=== PATIENT | female | born 1940 | race Caucasian/White ===

== ENCOUNTER → 2018-01-27 | Outpatient (REF) | payer MEDICARE, MEDICAID, SELFPAY | LOC: LAB 08:19 | PROVIDERS: PCP Internal Medicine; Visit Provider Internal Medicine | DX: N18.9 Chronic kidney disease, unspecified (principal) | CPT/HCPCS: 36415; 80048 ==

== ENCOUNTER → 2018-02-03 | Outpatient (REF) | payer MEDICARE, MEDICAID, SELFPAY | LOC: LAB 07:44 | PROVIDERS: Visit Provider Internal Medicine | DX: E11.9 Type 2 diabetes mellitus without complications (principal) | CPT/HCPCS: 36415; 80048 ==

== ENCOUNTER → 2018-02-13 | Outpatient (REF) | payer MEDICARE, MEDICAID, SELFPAY | LOC: LAB 19:14 | PROVIDERS: PCP Internal Medicine; Visit Provider Internal Medicine | DX: N18.9 Chronic kidney disease, unspecified (principal); L03.90 Cellulitis, unspecified | CPT/HCPCS: 80048; 85025 ==

== ENCOUNTER → 2018-02-19 | Outpatient (REF) | payer MEDICARE, MEDICAID, SELFPAY | LOC: LAB 09:06 | PROVIDERS: Visit Provider Internal Medicine | DX: R60.9 Edema, unspecified (principal); Z79.899 Other long term (current) drug therapy | CPT/HCPCS: 36415; 80048 ==

== ENCOUNTER → 2018-02-24 | Outpatient (REF) | payer MEDICARE, MEDICAID, SELFPAY | LOC: LAB 07:35 | PROVIDERS: Visit Provider Internal Medicine | DX: N18.9 Chronic kidney disease, unspecified (principal) | CPT/HCPCS: 36415; 80048 ==

== ENCOUNTER 2018-04-01 03:08 | Emergency (ER) | payer MEDICARE, MEDICAID, SELFPAY ==
[2018-04-01 03:10] VITALS: BP 136/50; PULSE 67; RESP 20; TEMP 36.9; O2SAT 96
--- NOTE | 2018-04-01 03:10 | ED.BACK ---
HPI - Back Pain/Injury General Chief Complaint: Back Pain/Injury Stated Complaint: Back Pain Time Seen by Provider: 04/01/18 03:10 Source: patient and EMS Mode of arrival: EMS Limitations: no limitations History of Present Illness HPI Narrative: Patient presents to emergency department with a chief complaint of some right lower back pain in the absence of injury. She denies other symptoms such as fever or chills nor difficulty with bowel or bladder control. She denies numbness, tingling or weakness. She denies any injury or fall. She admits to chronic back pain but states this is slightly worse than normal. She has to be transported for evaluation MD Complaint: back pain Onset (ago): year(s) Duration: intermittent Similar Symptoms Previously: Yes Location: lumbar spine Severity: mild Radiation: none Relieving factors: none Exacerbating factors: none Associated symptoms: denies other symptoms Related Data Home Medications Medication Instructions Recorded Confirmed VITAMIN D (Vitamin D3) 1,000 unit PO QDAY #0 08/04/12 04/01/18 albuterol sulfate [Proventil HFA] 2 puff INH Q4HP PRN #0 09/08/16 04/01/18 fluticasone [Flovent Diskus] 100 mcg INH BIDP PRN #0 09/08/16 lamotrigine [Lamictal] 300 mg PO QDAY #0 09/08/16 04/01/18 rivaroxaban [Xarelto] 15 mg PO QDAY #0 09/08/16 04/01/18 docusate sodium 100 mg PO QDAYP PRN #0 07/10/17 04/01/18 polyethylene glycol 3350 [Miralax] 17 gm PO QDAY #0 07/10/17 atorvastatin 40 mg PO QDAY #0 01/18/18 04/01/18 glipizide 10 mg PO BIDAC #0 01/18/18 04/01/18 Ritalin 5 mg DAILY 04/01/18 04/01/18 acetaminophen [Tylenol] 650 mg PO Q4H PRN 04/01/18 04/01/18 ascorbic acid (vitamin C) [Vitamin 04/01/18 C] fluticasone [Flovent Diskus] 1 inh INHALATION Q12H 04/01/18 04/01/18 furosemide [Lasix] 40 mg 04/01/18 hydroxyzine pamoate [Vistaril] 25 mg PO Q6-8H PRN 04/01/18 04/01/18 insulin aspart U-100 [Novolog ACHS 04/01/18 Flexpen U-100 Insulin] Previous Rx's Medication Instructions Recorded amlodipine [Norvasc] 5 mg PO QDAY #30 tab 01/22/18 lisinopril 20 mg PO QDAY #30 tab 01/22/18 metformin [Glucophage] 500 mg PO BIDCC #60 tab 01/22/18 methadone 10 mg PO 0200,1000,1800 #60 tab 01/22/18 methylphenidate HCl 10 mg PO QDAY #20 tab 01/22/18 nystatin 0 gm TOPICAL TID #30 gm 01/22/18 oxycodone 0 mg PO Q8H #60 tab 01/22/18 Allergies Allergy/AdvReac Type Severity Reaction Status Date / Time Iodine and Iodide Containing Allergy Intermediate i get Verified 04/01/18 03:24 Produc spots all [IODINE AND IODIDE over my CONTAINING PRODUC] body Penicillins [PENICILLINS] Allergy Intermediate makes my Verified 04/01/18 03:24 bones and joints ache aspirin [ASPIRIN] Allergy Unknown Verified 04/01/18 03:24 meclizine [MECLIZINE] Allergy Unknown Verified 04/01/18 03:24 codeine [CODEINE] AdvReac Unknown gives me Verified 04/01/18 03:24 bloody nightmares potassium [POTASSIUM] AdvReac Unknown Verified 04/01/18 03:24 Review of Systems Review of Systems All systems reviewed & are unremarkable except as noted in HPI and below Constitutional Denies chills, Denies fever(s), Denies lethargy and Denies weakness Eyes Denies change in vision, Denies eye discharge, Denies irritation and Denies loss of vision ENT Ears, Nose, Mouth, and Throat: Denies change in voice, Denies neck pain and Denies sore throat Cardiovascular Denies chest pain, Denies irregular heart rhythm, Denies lightheadedness, Denies palpitations, Denies dyspnea, Denies dyspnea on exertion and Denies orthopnea Respiratory Denies cough, Denies dyspnea, Denies dyspnea on exertion and Denies wheezing Gastrointestinal Gastrointestinal: Denies abdominal pain, Denies change in bowel habits, Denies diarrhea, Denies nausea and Denies vomiting Genitourinary Denies hematuria, Denies flank pain, Denies urinary incontinence and Denies urinary urgency Musculoskeletal Denies neck pain Integumentary/Breasts Denies pruritus, Denies erythema, Denies rash and Denies wounds Neurologic Denies confusion, Denies loss of vision and Denies weakness Psychiatric Denies anxiety, Denies confusion, Denies depression, Denies homicidal ideation and Denies suicidal ideation Endocrine Denies palpitations Hematologic/Lymphatic Denies easy bruising Allergic/Immunologic Denies wheezing [facility] Social History Smoking Status: Never smoker Exam Narrative Exam Narrative: Pleasantly confused 77F in mild distress Initial Vital Signs Initial Vital Signs: Vital Signs Temperature 98.4 F 04/01/18 03:10 Pulse Rate 67 04/01/18 03:10 Respiratory Rate 20 04/01/18 03:10 Blood Pressure 136/50 H 04/01/18 03:10 Pulse Oximetry 96 04/01/18 03:10 Const General: cooperative and in distress Nutritional Appearance: obese Orientation: alert, awake and not confused HENMT Head: normocephalic and atraumatic Nose: external nose normal and No nasal discharge Face and sinus: sinuses nontender, no sinus tenderness and No dry mucous membranes Mouth: oral mucosae normal and moist mucous membranes Eyes General: appearance normal, both eyes and all related structures Eyelids: eyelids normal Pupils: PERRL EOM: EOM intact bilaterally Resp Effort & Inspection: normal respiratory effort, able to speak in complete sentences, no respiratory distress and no use of accessory muscles Auscultation: clear to auscultation bilaterally, no rales, no rhonchi and no wheezes GI Inspection: non-distended Palpation: soft, no hepatosplenomegaly, No guarding, No pulsatile mass and No tender Auscultation: normal bowel sounds Back/Spine/Pelvis Back: back tenderness (to palpation of R buttock) Skin Other: chronic venous stasis B/L LE Neuro General: alert and awake Speech: speech normal Sensory Exam: no sensory deficits noted Course Orders Ordered: ED Orders 04/01/18 03:22 XR abdomen min 2V Stat Vital Signs - 8 hr 04/01/18 03:10 Temperature 98.4 F Pulse Rate 67 Respiratory Rate 20 Blood Pressure 136/50 H Pulse Oximetry 96 Discharge Plan Departure Patient Disposition: Home, Self-Care Clinical Impression: Chronic back pain Instructions: DI for Low Back Pain Prescriptions: No Action VITAMIN D (Vitamin D3) 1,000 unit PO QDAY Qty: 0 RF: 0 rivaroxaban [Xarelto] 15 MG tablet 15 mg PO QDAY Qty: 0 RF: 0 lamotrigine [Lamictal] 100 MG tablet 300 mg PO QDAY Qty: 0 RF: 0 fluticasone [Flovent Diskus] 100 MCG blister with device 100 mcg INH BIDP PRNQty: 0 RF: 0 albuterol sulfate [Proventil HFA] 90 MCG/PUFF HFA aerosol inhaler 2 puff INH Q4HP PRN (Reason: Dyspnea) Qty: 0 RF: 0 docusate sodium 100 MG capsule 100 mg PO QDAYP PRN (Reason: Constipation) Qty: 0 RF: 0 polyethylene glycol 3350 [Miralax] 17 GM powder in packet 17 gm PO QDAY Qty: 0 RF: 0 glipizide 5 MG tablet 10 mg PO BIDAC Qty: 0 RF: 0 atorvastatin 40 MG tablet 40 mg PO QDAY Qty: 0 RF: 0 metformin [Glucophage] 500 MG tablet 500 mg PO BIDCC Qty: 60 RF: 0 lisinopril 20 MG tablet 20 mg PO QDAY Qty: 30 RF: 0 methadone 10 MG tablet 10 mg PO 0200,1000,1800 Qty: 60 RF: 0 nystatin 30 GM cream Topical TID Qty: 30 RF: 0 amlodipine [Norvasc] 5 MG tablet 5 mg PO QDAY Qty: 30 RF: 0 oxycodone 5 MG tablet PO Q8H Qty: 60 RF: 0 methylphenidate HCl 10 MG tablet 10 mg PO QDAY Qty: 20 RF: 0 Ritalin 5 mg DAILY RF: 0 furosemide [Lasix] 40 mg Tablet 40 mg RF: 0 ascorbic acid (vitamin C) [Vitamin C] 500 mg Tablet RF: 0 fluticasone [Flovent Diskus] 100 mcg/actuation Blister With Device 1 inh INHALATION Q12H RF: 0 hydroxyzine pamoate [Vistaril] 25 mg Capsule 25 mg PO Q6-8H PRN (Reason: Muscle Spasm) RF: 0 acetaminophen [Tylenol] 325 mg Tablet 650 mg PO Q4H PRN (Reason: Pain (Scale Score 4-6)) RF: 0 insulin aspart U-100 [Novolog Flexpen U-100 Insulin] 100 unit/mL Insulin Pen ACHS RF: 0
--- NOTE | 2018-04-01 03:22 | DI.RAD.S_ITS ---
PROCEDURE: XR ABDOMEN MIN 2V INDICATIONS: 77 year-old female with constipation and back pain. TECHNIQUE: 2 views of the abdomen were acquired. COMPARISON: [facility], , XR ABDOMEN KU, 11/27/2001, 9:02. FINDINGS: Surgical changes and devices: Pelvic surgical clips are now present. Bowel: No pneumoperitoneum. The bowel gas pattern is normal. Soft tissues: No masses; visualized solid organ contours appear normal in size. No suspicious abdominal calcifications. Bones: No suspicious bony abnormalities. There is mild lumbar spine disc degeneration. IMPRESSION: Normal bowel gas pattern. Mild lumbar spine disc degeneration. Dictated by: Tim Souza M.D. on 04/01/2018 at 8:09 Approved by: Tim Souza M.D. on 04/01/2018 at 8:10
[2018-04-01 04:06] VITALS: BP 111/58; PULSE 67; RESP 18; O2SAT 97
--- NOTE | 2018-04-01 04:10 | PC.NURSE ---
Late entry at 0330-PT denies no new injuries/trauma/fall. Able to move all extremities well and denies bladder/bowel dysfunction.
== END 2018-04-01 04:06 | disposition home or self-care (01) ==
PROVIDERS: Emergency Provider Emergency Medicine; PCP Internal Medicine
DX: M54.9 Dorsalgia, unspecified (principal)
CPT/HCPCS: 74019; 99282; 99283

== ENCOUNTER → 2018-06-13 13:08 | Outpatient (CLI) | payer MEDICARE, MEDICAID, SELFPAY ==
--- NOTE | 2018-06-13 | DI.MG.S_ITS ---
BILATERAL DIGITAL SCREENING MAMMOGRAM 3D/2D WITH CAD: 06/13/2018 CLINICAL: Routine screening. Comparison is made to exams dated: 07/22/2015 mammogram, 10/14/2012 mammogram, and 09/06/2011 mammogram - [facility]. The tissue of both breasts is heterogeneously dense. This may lower the sensitivity of mammography. Current study was also evaluated with a Computer Aided Detection (CAD) system. No significant masses, calcifications, or other findings are seen in either breast. There has been no significant interval change. IMPRESSION: NEGATIVE There is no mammographic evidence of malignancy. A 1 year screening mammogram is recommended. This exam was interpreted at Station ID: [id number]. NOTE: For mammograms, a report in lay terms will be sent to the patient. Approximately 15% of breast malignancies will not be visualized mammographically. In the management of a palpable breast mass, a negative mammogram must not discourage biopsy of a clinically suspicious lesion. Electronically Signed By: Tamela martinez/krista:06/13/2018 14:39:25 letter sent: Normal Exam ACR BI-RADS Category 1: Negative [id number]
== END ==
PROVIDERS: PCP Internal Medicine; Visit Provider Internal Medicine
DX: Z12.31 Encounter for screening mammogram for malignant neoplasm of breast (principal)
CPT/HCPCS: 77063; 77067

== ENCOUNTER → 2018-08-01 14:45 | Outpatient (REF) | payer MEDICARE, MEDICAID, SELFPAY ==
[2018-08-01 14:48] LABS: Bacteria Urine None Seen
[2018-08-01 15:00] LABS: Bilirubin Urine UA NEGATIVE (NEGATIVE); Color Urine UA YELLOW; Glucose Urine UA 2+ g/dL (Normal); Ketones Urine UA NEGATIVE (NEGATIVE); Leukocyte Esterase Urine UA NEGATIVE (NEGATIVE); Nitrite Urine UA Negative (Negative); Occult Blood Urine UA 3+ (Negative); Protein Urine UA NEGATIVE (Negative); Specific Gravity Urine UA 1.015 (1.000-1.035); Urobilinogen Urine UA 0.2 E.U./dL (0.2)
[2018-08-01 15:04] LABS: Appearance Urine UA Slightly Cloudy
[2018-08-01 15:41] LABS: RBC Urine 5-10/HPF (0-5/HPF); Squamous Epithelial Cell Urine 0-1 /HPF; WBC Urine 0-1/HPF (0-5/HPF)
[2018-08-01 15:42] LABS: Culture Indicated Urine Cult Not Indicated
== END ==
LOC: LAB 14:45
PROVIDERS: PCP Internal Medicine; Visit Provider Internal Medicine
DX: N39.0 Urinary tract infection, site not specified (principal)
CPT/HCPCS: 81001

== ENCOUNTER → 2018-08-06 15:53 | Outpatient (CLI) | payer MEDICARE, MEDICAID, SELFPAY ==
--- NOTE | 2018-08-06 15:59 | DI.RAD.S_ITS ---
PROCEDURE: XR FOREARM RT 2V INDICATIONS: PAIN IN RIGHT HAND/ARM TECHNIQUE: 2 views of the forearm were acquired. COMPARISON: None. FINDINGS: Bones: No fractures or dislocations. No suspicious bony lesions. Soft tissues: No suspicious soft tissue calcifications or masses. IMPRESSION: No acute radiographic findings. If pain persists, followup imaging in 5-7 days is recommended to exclude occult fracture. Dictated by: Tamela Del Cid M.D. on 08/06/2018 at 16:32 Approved by: Tamela Del Cid M.D. on 08/06/2018 at 16:34
--- NOTE | 2018-08-06 15:59 | DI.RAD.S_ITS ---
PROCEDURE: XR HAND RT MIN 3V INDICATIONS: RIGHT HAND AND ARM PAIN TECHNIQUE: 3 views of the hand(s) acquired. COMPARISON: [facility], , HAND 3V RIGHT, 08/31/2009, 14:10. FINDINGS: Bones: No acute fracture or dislocation. Bones are osteopenic. 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 Soft tissues: No suspicious soft tissue calcifications. IMPRESSION: Osteopenia and severe degenerative change. No acute radiographic findings. If pain persists, followup imaging in 5-7 days is recommended to exclude occult fracture. Dictated by: Tamela Del Cid M.D. on 08/06/2018 at 16:34 Approved by: Tamela Del Cid M.D. on 08/06/2018 at 16:37
--- NOTE | 2018-08-06 15:59 | DI.RAD.S_ITS ---
PROCEDURE: XR WRIST RT MIN 3V INDICATIONS: RIGHT HAND AND ARM PAIN TECHNIQUE: 4 views of the wrist were acquired. COMPARISON: [facility], , WRIST MINIMUM 3 VIEWS RIGHT, 08/31/2009, 14:11. FINDINGS: Bones: There is severe degenerative change at the first CMC joint. There is negative ulnar variance. No acute fracture or dislocation. Scaphoid view: The scaphoid is intact. Soft tissues: No suspicious soft tissue calcifications. IMPRESSION: Degenerative change. No acute radiographic findings. If pain persists, followup imaging in 5-7 days is recommended to exclude occult fracture. Dictated by: Tamela Del Cid M.D. on 08/06/2018 at 16:37 Approved by: Tamela Del Cid M.D. on 08/06/2018 at 16:38
== END ==
PROVIDERS: PCP Internal Medicine; Visit Provider Internal Medicine
DX: M85.841 Other specified disorders of bone density and structure, right hand (principal); M18.11 Unilateral primary osteoarthritis of first carpometacarpal joint, right hand; M79.641 Pain in right hand; M25.531 Pain in right wrist; M79.631 Pain in right forearm
CPT/HCPCS: 73090; 73110; 73130

== ENCOUNTER 2018-08-08 03:07 | Inpatient (IN) | payer MEDICARE, MEDICAID, SELFPAY ==
[2018-08-08] VITALS (20 sets, daily range): BP systolic 73–144; BP diastolic 34–100; PULSE 41–100; RESP 12–23; TEMP 36.3–36.7; O2SAT 93–100; BMI 42.3
--- NOTE | 2018-08-08 | DI.ECHO.S_ITS ---
[facility] +---------+ [facility] +---------+ : : [address] : : : : [id number] : : : : Phone: [phone] Echocardiogram Report + + :Name: KAYLA BYRD Study Date: 08/08/2018 Height: 65 in : :Hospital Exam Location: [facility] Weight: 246 lb : : Gender: Female BSA: 2.2 m2 : :: 1940 Age: 78 yrs BP: 130/69 mmHg: :Reason For Study: SOB : :Ordering Physician: Jean Claude : :Hospitalist Performed By: Silvana Delgado : :Referring: KITA RUSSO : + + Interpretation Summary The left ventricle is normal in size.The ejection fraction is estimated to be 60-65%. The right ventricle is mildly dilated. The right ventricular systolic function is normal. There is mild aortic regurgitation. There is mild tricuspid regurgitation. The right ventricular systolic pressure is estimated to be at least 33 mmHg based on an estimated right atrial pressure of 15 mm Hg. Procedure: A two-dimensional transthoracic echocardiogram with color flow and Doppler was performed. The study quality was technically difficult. There is no prior echocardiogram noted for this patient. The patient was in sinus bradycardia with heart rates between 41-48 bpm during the exam. Pt unable to participate in exam due to AMS. Left Ventricle: The left ventricle is normal in size. Proximal septal thickening is noted. There is no echo evidence for significant left ventricular outflow tract obstruction. There is no thrombus. The ejection fraction is estimated to be 60-65%. There are no obvious focal wall motion abnormalities noted but poor endocardial definition reduces the sensitivity for the detection of such. Diastolic parameters suggest a relaxation abnormality of the left ventricle, consistent with probable normal filling pressures. Right Ventricle: The right ventricle is mildly dilated. The right ventricular systolic function is normal. Atria: The left atrium is moderately dilated. The right atrium is mildly dilated. There is no Doppler evidence for an interatrial shunt. Mitral Valve: The mitral valve leaflets appear mildly thickened, but open well. There is mild mitral annular calcification. The mitral valve leaflets are slightly calcified. There is trace mitral regurgitation. Aortic Valve: There is mild aortic valve sclerosis. The aortic valve is not well visualized. There is no hemodynamically significant valvular aortic stenosis. There is mild aortic regurgitation. Tricuspid Valve: The tricuspid valve is not well visualized. There is mild tricuspid regurgitation. The right ventricular systolic pressure is estimated to be at least 33 mmHg based on an estimated right atrial pressure of 15 mm Hg. Pulmonic Valve: The pulmonic valve is not well visualized. Great Vessels: The aortic root is normal size. The ascending aorta is mildly enlarged. The aortic arch could not be visualized. The pulmonary is not well visualized. The IVC is dilated (diameter is greater than 2.1 cm) and it collapses less than 50% with a sniff. This suggests a high right atrial pressure of 15 mm Hg. Pericardium/ Pleura There is no pericardial effusion. There is no pleural effusion. MMode/2D Measurements & Calculations LVIDd: 5.2 cm LVOT diam: 2.0 cm LVIDs: 3.1 cm Ao root diam: 3.6 cm FS: 39.9 % asc Aorta Diam: 4.0 cm EPSS: 0.23 cm IVSd: 1.0 cm LVPWd: 1.1 cm LV barron. diameter/BSA (cm/m^2): 2.4 LV sys. diameter/BSA (cm/m^2): 1.4 LA A2 area: 24.5 cm2 RA long axis: 6.0 cm LA A4 area: 28.5 cm2 RA area: 23.5 cm2 LA length (vol): 6.5 cm RA vol: 78.3 ml LA vol: 91.5 ml RA : 36.2 ml/m2 LA vol index: 42.3 ml/m2 IVC diam: 2.4 cm TAPSE: 2.0 cm Doppler Measurements & Calculations Ao V2 max: 144.1 cm/sec LVOT Max Camacho: 104.5 cm/sec Ao V2 mean: 95.7 cm/sec LV V1 max P.4 mmHg Ao max P.3 mmHg LV V1 VTI: 25.7 cm Ao mean P.1 mmHg ARIES(I,D): 2.6 cm2 Ao V2 VTI: 29.7 cm ARIES(V,D): 2.2 cm2 sev ratio: 0.87 ARIES indexed to BSA (cm^2/m^2): 1.2 AI P1/2t: 751.1 msec AI dec slope: 135.0 cm/sec2 MV E max camacho: 75.2 cm/sec TR max camacho: 211.1 cm/sec MV A max camacho: 92.6 cm/sec TR max P.8 mmHg MV E/A: 0.81 PA V2 max: 63.6 cm/sec Med Peak E' Camacho: 6.8 cm/sec PA V2 mean: 46.8 cm/sec E/E' med: 11.0 PA mean P.96 mmHg Lat Peak E' Camacho: 9.2 cm/sec PA pr(Accel): 29.1 mmHg E/E' lat: 8.2 E/e' average: 9.6 MV dec time: 0.24 sec MV P1/2t: 70.6 msec MV P1/2t max camacho: 76.3 cm/sec MVA(P1/2t): 3.1 cm2 Reading Physician:GEOFFREY
--- NOTE | 2018-08-08 03:07 | DI.RAD.S_ITS ---
PROCEDURE: XR CHEST 1V INDICATIONS: chest pain TECHNIQUE: One view of the chest was acquired. COMPARISON: [facility], , CHEST 1 VIEW, 01/18/2018, 5:30. FINDINGS: Surgical changes and devices: None. Lungs and pleura: No pleural effusions or pneumothorax. Lung volumes are decreased. No acute consolidation. There is scattered atelectasis and/or scarring. Lung apices are partially obscured by the patient's chin Mediastinum: Mediastinal contours appear normal. Heart size is normal. Bones and chest wall: No suspicious bony lesions. Overlying soft tissues appear unremarkable. IMPRESSION: Low lung volumes and scattered atelectasis. No acute consolidation. Dictated by: Tra Galeana M.D. on 08/08/2018 at 8:02 Approved by: Tra Galeana M.D. on 08/08/2018 at 8:03
--- NOTE | 2018-08-08 03:10 | ED.GENADULT ---
HPI - General Adult General Chief complaint: Headache Stated complaint: SOB Time Seen by Provider: 08/08/18 03:08 Source: patient and EMS Mode of arrival: EMS Limitations: altered mental status History of Present Illness HPI narrative: patient is a 78-year-old female who lives at a sister living facility called the nurses at the assisted living facility for multiple complaints. Was reported by EMS that she called them for shortness of breath, headache, and feeling like she was fading . There is also some reports that the patient stated that she thought she that she was having a heart attack. When EMS arrived they found that the patient was more confused than what they have seen her in the past. The nursing staff also stated that she was more confused. Patient does have a PLOST for with her and she is a full code. Related Data Home Medications Medication Instructions Recorded Confirmed VITAMIN D (Vitamin D3) 1,000 unit PO QDAY #0 08/04/12 08/08/18 albuterol sulfate [Proventil HFA] 2 puff INH Q4HP PRN #0 09/08/16 08/08/18 fluticasone [Flovent Diskus] 100 mcg INH BIDP PRN #0 09/08/16 08/08/18 lamotrigine [Lamictal] 300 mg PO QDAY #0 09/08/16 08/08/18 rivaroxaban [Xarelto] 15 mg PO QDAY #0 09/08/16 08/08/18 docusate sodium 100 mg PO QDAYP PRN #0 07/10/17 08/08/18 atorvastatin 40 mg PO QDAY #0 01/18/18 08/08/18 glipizide 10 mg PO BIDAC #0 01/18/18 08/08/18 ascorbic acid (vitamin C) [Vitamin 500 mg PO DAILY 04/01/18 08/08/18 C] fluticasone [Flovent Diskus] 1 inh INHALATION Q12H 04/01/18 08/08/18 furosemide [Lasix] 40 mg PO BID 04/01/18 08/08/18 hydroxyzine pamoate [Vistaril] 25 mg PO Q6-8H PRN 04/01/18 08/08/18 insulin aspart U-100 [Novolog See Label Instructions .ROUTE 04/01/18 08/08/18 Flexpen U-100 Insulin] .COMPLEX baclofen 10 mg PO TID 08/08/18 08/08/18 erythromycin 0.5 inch EYE-LEFT DAILY 08/08/18 08/08/18 latanoprost 1 drp EYE-RIGHT DAILY 08/08/18 08/08/18 methadone 5 mg PO 0200,1000,1800 08/08/18 08/08/18 Previous Rx's Medication Instructions Recorded lisinopril 20 mg PO QDAY #30 tab 01/22/18 Allergies Allergy/AdvReac Type Severity Reaction Status Date / Time Iodine and Iodide Containing Allergy Intermediate i get Verified 08/08/18 03:20 Produc spots all [IODINE AND IODIDE over my CONTAINING PRODUC] body Penicillins [PENICILLINS] Allergy Intermediate makes my Verified 08/08/18 03:20 bones and joints ache aspirin [ASPIRIN] Allergy Unknown Verified 08/08/18 03:20 meclizine [MECLIZINE] Allergy Unknown Verified 08/08/18 03:20 codeine [CODEINE] AdvReac Unknown gives me Verified 08/08/18 03:20 bloody nightmares potassium [POTASSIUM] AdvReac Unknown Verified 08/08/18 03:20 Review of Systems Review of Systems Difficult to obtain review of systems secondary to patient's altered mental status. unobtainable due to mental condition Constitutional Reports headache(s) ( she states that at 1 point she was having headache but not now) ENT Ears, Nose, Mouth, and Throat: Reports headache(s) ( she states that at 1 point she was having headache but not now) Cardiovascular Denies chest pain and Reports dyspnea ( She said that she was short of breath but not now at the time of my exam) Respiratory Reports dyspnea ( She said that she was short of breath but not now at the time of my exam) Gastrointestinal Gastrointestinal: Denies abdominal pain and Denies nausea Musculoskeletal Denies arthralgias Neurologic Reports headache(s) ( she states that at 1 point she was having headache but not now) PFSH Medical History CVA (cerebral vascular accident) (Acute) Cataract (Acute) Chronic pain (Acute) Depression (Acute) Diabetes (Acute) H/O: hysterectomy (Acute) Hypertension (Acute) Lower extremity edema (Acute) Pulmonary embolism (Acute) Surgical History Hx of appendectomy (Acute) Hx of tonsillectomy (Acute) Hx of total knee arthroplasty (Acute) Social History Smoking Status: Never smoker Exam Initial Vital Signs Initial Vital Signs: Vital Signs Temperature 97.6 F 08/08/18 03:16 Pulse Rate 80 08/08/18 03:16 Respiratory Rate 20 08/08/18 03:16 Blood Pressure 144/54 H 08/08/18 03:16 Pulse Oximetry 100 08/08/18 03:16 Const General: well developed and No acute distress Orientation: oriented to place, not oriented to time and confused Limitations: altered mental status HENMT Head: normal to inspection, normocephalic and atraumatic Resp Effort & Inspection: normal respiratory effort Cardio Rate: bradycardic Pulses: radial pulses present GI Inspection: non-distended Palpation: soft Skin Other: chronic venous stasis changes bilateral lower extremities Neuro General: alert, moves all extremities ( spontaneously but not to command), confused and unable to assess gait Cognition: abnormal cognition Extrem Other: no gross deformities except for bilateral lower extremity swelling Psych Appearance: grossly normal and well kempt Scores GCS [place] coma scale eye opening: To sound [place] coma scale verbal response: Confused [place] coma scale motor response: Localising [place] coma scale total score: 12 Course Orders Ordered: ED Orders 08/08/18 03:07 XR chest 1V Stat 08/08/18 03:08 EKG-12 Lead Stat 08/08/18 03:13 CT head/brain wo con Stat 08/08/18 03:30 B Type Natriuretic Peptide Stat Complete Blood Count AUTO DIFF Stat Comprehensive Metabolic Panel Stat Lipase Stat Partial Thromboplastin Time Stat Prothrombin Time INR Stat Troponin I Stat Discontinued Medications Sodium Chloride (Normal Saline 0.9%) 1,000 mls @ 1,000 mls/hr IV BOLUS ONE Stop: 08/08/18 05:02 Last Admin: 08/08/18 04:18 Dose: 1,000 mls/hr Naloxone HCl (Narcan) 0.4 mg IV NOW ONE Stop: 08/08/18 04:14 Last Admin: 08/08/18 04:18 Dose: 0.4 mg Vital Signs - 8 hr 08/08/18 03:16 08/08/18 04:00 08/08/18 04:01 Temperature 97.6 F Pulse Rate 80 54 L 57 L Respiratory Rate 20 12 12 Blood Pressure 144/54 H Blood Pressure [Right Arm] 98/59 L 83/36 L Pulse Oximetry 100 97 96 08/08/18 04:03 08/08/18 04:04 08/08/18 04:05 Temperature Pulse Rate 73 55 L 54 L Respiratory Rate 15 13 12 Blood Pressure Blood Pressure [Right Arm] 91/42 L 80/38 L 73/34 L Pulse Oximetry 96 99 99 08/08/18 04:15 08/08/18 04:22 08/08/18 04:39 Temperature Pulse Rate 45 L 41 L 100 H Respiratory Rate 23 21 20 Blood Pressure Blood Pressure [Right Arm] 73/34 L 111/79 119/100 H Pulse Oximetry 93 93 97 Medical Decision Making Medical Records Medical records reviewed: Yes I reviewed the patient's medical records. Lab Data Lab results reviewed: Yes I reviewed the patient's lab results. Result diagrams: 08/08/18 03:30 08/08/18 03:30 Lab Results 08/08/18 08/08/18 08/08/18 Range/Units 03:30 03:30 03:30 WBC 9.5 (4.5-11.0) X10^3/uL RBC 3.72 L (4.0-5.2) X10^6/uL Hgb 11.4 L (12.0-16.0) g/dL Hct 33.2 L (36-46) % MCV 89.1 (80-100) fL MCH 30.6 (26-34) PG MCHC 34.4 (30-36) % RDW 14.4 (11.6-14.8) % Plt Count 219 (150-400) X10^3/uL Neut % (Auto) 70.1 (50-75) % Lymph % (Auto) 14.0 L (25-40) % Bullock % (Auto) 5.0 (3-14) % Eos % (Auto) 10.0 H (2-4) % Baso % (Auto) 0.9 (0-2) % Neut # (Auto) 6700 H (4745-4021) /uL PT 15.4 H (10.1-12.7) SECONDS INR 1.4 H (0.9-1.3) APTT 36 (26.4-36.2) SECONDS Sodium 145 (137-145) mmol/L Potassium 5.2 H (3.4-5.1) mmol/L Chloride 105 (98-107) mmol/L Carbon Dioxide 25 (22-32) mmol/L BUN 54 H (7-17) mg/dL Creatinine 3.30 H (0.52-1.04) mg/dL Estimated GFR 13.6 L (>60) mL/min BUN/Creatinine Ratio 16.4 (6-22) Glucose 236 H (80-110) mg/dL Calcium 10.2 (8.4-10.2) mg/dL Total Bilirubin 0.5 (0.2-1.3) mg/dL AST 15 (14-36) IU/L ALT 25 (9-52) IU/L Alkaline Phosphatase 107 (38-126) U/L Troponin I < 0.012 (0.01-0.034) ng/mL B-Natriuretic Peptide 55.1 (<100) Total Protein 7.0 (6.3-8.2) g/dL Albumin 4.1 (3.5-5.0) g/dL Globulin 2.9 (1.7-4.1) g/dL Albumin/Globulin Ratio 1.4 (1.0-2.8) Lipase 116 (23-300) U/L Imaging Data Chest x-ray: Attestation: I personally reviewed and interpreted this imaging study as follows: My impression: poor inspiratory effort. No focal consolidations no pneumothorax CT scan - head: Radiologist's impression: no acute intracranial process is identified. Mild to moderate age-related changes. Mild to moderate age-related ischemic demyelination of white matter ECG Data Attestation: I personally reviewed and interpreted this ECG as follows: Prior ECG tracings: not available for review Interpretation: sinus rhythm ventricular rate is 74 Left axis deviation right bundle branch block first degree AV block No ST T wave changes MDM Narrative Medical decision making narrative: during her time here in the emergency department the patient became more obtundent. She was responsive to verbal stimuli. Patient was also bradycardic and hypotensive with systolic blood pressure in the 80s. Her head CT showed no acute pathology. She was not hypoglycemic. Was afebrile and does not have an elevated white blood cell count. Considered sepsis however no source was seen. She does have bilateral lower extremity venous stasis changes. She does have an elevated creatinine today of which seems to be worsening since earlier this year. Review of the patient's medicine from the [facility] facility it does show that she is on methadone and baclofen. Due to a lack of other definitive sources of her altered mental status of bradycardia and hypotension I decided to give Narcan to see if this did not improve her symptoms. She was given 0.4 mg of Narcan which did improve her heart rate, blood pressure and did make her more interactive. She still seemed to be confused. I suspect that an overdose of her medication is the most likely source of her altered mental status. Given the lack of definitive diagnosis, the concern that her symptoms may return I discussed the case with Dr. Chapa with Internal Medicine who will admit the patient for observation and continued treatment. Discharge Plan Departure Patient Disposition: Admitted as Observation Clinical Impression: Acute alteration in mental status, Hyperglycemia, Acute kidney injury Admit Date/Time: 08/08/18 04:33 Admit Provider: Lady Chapa
--- NOTE | 2018-08-08 03:13 | DI.CT.S_ITS ---
PROCEDURE: CT HEAD/BRAIN WO CON INDICATIONS: Headache, on anticoagulation TECHNIQUE: Noncontrast 4.5 mm thick angled axial sections acquired from the foramen magnum to the vertex, with coronal and sagittal reformats. For radiation dose reduction, the following was used: automated exposure control, adjustment of mA and/or kV according to patient size. COMPARISON: [facility], CT, HEAD WITHOUT CONTRAST, 01/18/2018, 5:45. FINDINGS: Image quality: Excellent. CSF spaces: Basal cisterns are patent. No extra-axial fluid collections. The ventricles are symmetric in size and shape. Brain: No intracranial bleeds or masses. There is cerebral volume loss for age, with resultant ventricular and sulcal prominence. There are periventricular and deep white matter chronic small vessel ischemic changes. There is intracranial internal carotid artery atherosclerosis. Skull and face: Calvarium and visualized facial bones appear intact, without suspicious lesions. Sinuses: Visualized sinuses and mastoids are clear. IMPRESSION: No acute intracranial process. Dictated by: Tra Galeana M.D. on 08/08/2018 at 7:34 Approved by: Tra Galeana M.D. on 08/08/2018 at 7:35
[2018-08-08 03:46] LABS: Add Manual Diff / Slide Review NO; Basophils Percent Auto 0.9 % (0-2); Hematocrit 33.2 % (36-46); Hemoglobin 11.4 g/dL (12.0-16.0); Mean Corpuscular HGB Conc 34.4 % (30-36); Mean Corpuscular Hemoglobin 30.6 PG (26-34); Mean Corpuscular Volume 89.1 fL (80-100); Neutrophils Absolute Auto 6700 /uL (3000-5900); Neutrophils Percent Auto 70.1 % (50-75); Platelet Count 219 X10^3/uL (150-400); Red Blood Cell Count 3.72 X10^6/uL (4.0-5.2); Red Cell Distribution Width 14.4 % (11.6-14.8); White Blood Cell Count 9.5 X10^3/uL (4.5-11.0)
[2018-08-08 03:59] LABS: INR 1.4 (0.9-1.3); Prothrombin Time 15.4 SECONDS (10.1-12.7)
[2018-08-08 04:01] LABS: Alanine Aminotransferase 25 IU/L (9-52); Albumin 4.1 g/dL (3.5-5.0); Albumin Globulin Ratio 1.4 (1.0-2.8); Alkaline Phosphatase 107 U/L (38-126); Aspartate Aminotransferase 15 IU/L (14-36); BUN Creatinine Ratio 16.4 (6-22); Bilirubin Total 0.5 mg/dL (0.2-1.3); Blood Urea Nitrogen 54 mg/dL (7-17); Calcium 10.2 mg/dL (8.4-10.2); Carbon Dioxide 25 mmol/L (22-32); Chloride 105 mmol/L (98-107); Estimated Glomerular Filt Rate 13.6 mL/min (>60); Globulin 2.9 g/dL (1.7-4.1); Glucose 236 mg/dL (80-110); HEMOLYSIS < 15 (0-50); Lipase 116 U/L (23-300); PTT Partial Thromboplastin Tim 36 SECONDS (26.4-36.2); Potassium 5.2 mmol/L (3.4-5.1); Sodium 145 mmol/L (137-145)
[2018-08-08 04:05] LABS: B Type Natriuretic Peptide 55.1 (<100)
[2018-08-08 04:16] LABS: Troponin I < 0.012 ng/mL (0.01-0.034)
[2018-08-08] MEDS: NALOXONE 1 MG/ML SYRINGE 0.4 MG IV (04:18)
[2018-08-08] MEDS: SODIUM CHLORIDE 0.9% 1,000 ML 1000 ML IV (04:18)
--- NOTE | 2018-08-08 06:46 | PC.NURSE ---
admission note Pt arrived on unit at 0500 by stretcher. Transferred to bed via stretcher. Pt reports she uses walker at [facility]. Pt is visually impaired. Alert and oriented to name and situation. Pt is highly anxious, chews tongue/ lip smacking as she talks. Verbally repeats need. Wished to use BR, put on bedpan. Unable to get up to BR at this time due to limited mobility and AMS. 99% on RA. LS clear. Redness on buttocks, and soiled brief with loose BM upon arrival from ED. Has venuous statesis in bilateral lower extremities. Call light in reach.
--- NOTE | 2018-08-08 07:14 | P.DS_ITS ---
History of Present Illness Date Patient Seen: 08/08/18 Time Patient Seen: 06:17 Chief complaint: SOB Narrative: Patient is a 78 years of age female who resides in a local assisted living facility and was noted with altered level of consciousness. Patient was diagnosed with a toxic encephalopathy suspected secondary to the medications she may normally be taking regularly. I do not see a urine tox screen on admission workup. I requested and is pending. Patient with history of diabetes on insulin therapy with elevated sugar. I requested a hemoglobin A1c to further evaluate. Note that up to 50% of the value of a hemoglobin level can be reflective of the most recent 30 days. Discharge Providers Date of admission: 08/08/18 04:33 Primary care physician: Radhames Dasilva MD Discharge provider: Praveen Rahman MD Exam Vital Signs (past 8 hours): - 08/08/18 03:16 08/08/18 04:00 08/08/18 04:01 Temperature 97.6 F Pulse Rate 80 54 L 57 L Respiratory Rate 20 12 12 Blood Pressure 144/54 H Blood Pressure [Right Arm] 98/59 L 83/36 L Pulse Oximetry 100 97 96 08/08/18 04:03 08/08/18 04:04 08/08/18 04:05 Temperature Pulse Rate 73 55 L 54 L Respiratory Rate 15 13 12 Blood Pressure Blood Pressure [Right Arm] 91/42 L 80/38 L 73/34 L Pulse Oximetry 96 99 99 08/08/18 04:15 08/08/18 04:22 08/08/18 04:39 Temperature Pulse Rate 45 L 41 L 100 H Respiratory Rate 23 21 20 Blood Pressure Blood Pressure [Right Arm] 73/34 L 111/79 119/100 H Pulse Oximetry 93 93 97 08/08/18 05:16 08/08/18 05:47 Temperature 98.1 F Pulse Rate 90 88 Respiratory Rate 15 21 Blood Pressure 130/69 Blood Pressure [Right Arm] 104/89 Pulse Oximetry 97 99 Oxygen Delivery Method Room Air Objective Labs Result Diagrams: 08/08/18 03:30 08/08/18 03:30 Labs: Laboratory Results - last 24 hr 08/08/18 08/08/18 08/08/18 03:30 03:30 03:30 WBC 9.5 RBC 3.72 L Hgb 11.4 L Hct 33.2 L MCV 89.1 MCH 30.6 MCHC 34.4 RDW 14.4 Plt Count 219 Neut % (Auto) 70.1 Lymph % (Auto) 14.0 L Caroline % (Auto) 5.0 Eos % (Auto) 10.0 H Baso % (Auto) 0.9 Neut # (Auto) 6700 H PT 15.4 H INR 1.4 H APTT 36 Sodium 145 Potassium 5.2 H Chloride 105 Carbon Dioxide 25 BUN 54 H Creatinine 3.30 H Estimated GFR 13.6 L BUN/Creatinine Ratio 16.4 Glucose 236 H Calcium 10.2 Total Bilirubin 0.5 AST 15 ALT 25 Alkaline Phosphatase 107 Troponin I < 0.012 B-Natriuretic Peptide 55.1 Total Protein 7.0 Albumin 4.1 Globulin 2.9 Albumin/Globulin Ratio 1.4 Lipase 116 Discharge Plan Discharge Med Rec/Prescriptions Prescriptions: No Action VITAMIN D (Vitamin D3) 1,000 unit PO QDAY Qty: 0 RF: 0 rivaroxaban [Xarelto] 15 MG tablet 15 mg PO QDAY Qty: 0 RF: 0 lamotrigine [Lamictal] 100 MG tablet 300 mg PO QDAY Qty: 0 RF: 0 fluticasone [Flovent Diskus] 100 MCG blister with device 100 mcg INH BIDP PRN (Reason: asthma) Qty: 0 RF: 0 albuterol sulfate [Proventil HFA] 90 MCG/PUFF HFA aerosol inhaler 2 puff INH Q4HP PRN (Reason: Dyspnea) Qty: 0 RF: 0 docusate sodium 100 MG capsule 100 mg PO QDAYP PRN (Reason: Constipation) Qty: 0 RF: 0 glipizide 5 MG tablet 10 mg PO BIDAC Qty: 0 RF: 0 atorvastatin 40 MG tablet 40 mg PO QDAY Qty: 0 RF: 0 lisinopril 20 MG tablet 20 mg PO QDAY Qty: 30 RF: 0 furosemide [Lasix] 40 mg Tablet 40 mg PO BID RF: 0 ascorbic acid (vitamin C) [Vitamin C] 500 mg Tablet 500 mg PO DAILY RF: 0 fluticasone [Flovent Diskus] 100 mcg/actuation Blister With Device 1 inh INHALATION Q12H RF: 0 hydroxyzine pamoate [Vistaril] 25 mg Capsule 25 mg PO Q6-8H PRN (Reason: Muscle Spasm) RF: 0 insulin aspart U-100 [Novolog Flexpen U-100 Insulin] 100 unit/mL Insulin Pen See Label Instructions .ROUTE .COMPLEX RF: 0 methadone 10 MG tablet 5 mg PO 0200,1000,1800 RF: 0 baclofen 10 mg Tablet 10 mg PO TID RF: 0 latanoprost 0.005 % Drops 1 drp EYE-RIGHT DAILY RF: 0 erythromycin 5 mg/gram (0.5 %) Ointment 0.5 inch EYE-LEFT DAILY RF: 0 Discharge Data Primary Care Provider: Radhames Dasilva V Attending Provider: Lady Chapa Admit Date/Time: 08/08/18 04:33 Quality VTE Deep Vein Thrombosis/Pulmonary Embolism Present on Admission: No
--- NOTE | 2018-08-08 07:17 | PM.HP.1 ---
History of Present Illness Date Patient Seen: 08/08/18 Time Patient Seen: 06:17 Chief complaint: SOB Narrative: Patient is a 78 years of age female that resides in a local assisted living facility. Patient noted with altered level of consciousness and sent to the emergency room for further eval. Patient was seen by the ER staff and holding orders placed patient up to the floor. A urine tox screen has not been obtained as yet. I requested urine tox screen to be done urgently. Glucose levels are a bit high. I requested hemoglobin A1c to be done.. Patient with elevated BUN and creatinine which may be reflective of glucose out of control and recent poor intake of fluids. Will provide IV fluids. Note patient on Lasix 40 mg twice daily. Will continue with Lasix IV q.12 hours. A BNP is also requested to further evaluate. Will obtain a bedside echo to further evaluate cardiac contractility and integrity of the heart valves. No portable chest x-ray done as yet either. Will obtain an AP portable chest x-ray as tolerated. Salgado to be placed for strict fluid monitoring. At present patient is obtunded and unable to answer questions. I am at present unaware what patient's baseline cognitive function might be. She does have history of a stroke. It is possible patient may have had cognitive decline since the stroke. Patient appears to be moving all 4 limbs equally. No lateralizing motor deficit evident. Patient History Medical History CVA (cerebral vascular accident) (Acute) Cataract (Acute) Chronic pain (Acute) Depression (Acute) Diabetes (Acute) H/O: hysterectomy (Acute) Hypertension (Acute) Lower extremity edema (Acute) Pulmonary embolism (Acute) Surgical History Hx of appendectomy (Acute) Hx of tonsillectomy (Acute) Hx of total knee arthroplasty (Acute) Family & Social History Social History: Prior Living Arrangements Skilled Nurse Facility Safety & Behavioral: Feels Safe in Current Yes Environment Been Physically Hurt or No Threatened By a Person Suicidal Ideation Description None Suicide Plan Description No Plan Tobacco & Substance use: Smoking Status Never smoker alcohol intake former alcohol intake frequency 0-2 drinks per day Substance Use Type does not use Meds Home Medications Medication Instructions Recorded Confirmed Type VITAMIN D (Vitamin D3) 1,000 unit PO QDAY #0 08/04/12 08/08/18 History albuterol sulfate [Proventil HFA] 2 puff INH Q4HP PRN #0 09/08/16 08/08/18 History fluticasone [Flovent Diskus] 100 mcg INH BIDP PRN #0 09/08/16 08/08/18 History lamotrigine [Lamictal] 300 mg PO QDAY #0 09/08/16 08/08/18 History rivaroxaban [Xarelto] 15 mg PO QDAY #0 09/08/16 08/08/18 History docusate sodium 100 mg PO QDAYP PRN #0 07/10/17 08/08/18 History atorvastatin 40 mg PO QDAY #0 01/18/18 08/08/18 History glipizide 10 mg PO BIDAC #0 01/18/18 08/08/18 History lisinopril 20 mg PO QDAY #30 tab 01/22/18 08/08/18 Rx ascorbic acid (vitamin C) [Vitamin 500 mg PO DAILY 04/01/18 08/08/18 History C] fluticasone [Flovent Diskus] 1 inh INHALATION Q12H 04/01/18 08/08/18 History furosemide [Lasix] 40 mg PO BID 04/01/18 08/08/18 History hydroxyzine pamoate [Vistaril] 25 mg PO Q6-8H PRN 04/01/18 08/08/18 History insulin aspart U-100 [Novolog See Label Instructions .ROUTE 04/01/18 08/08/18 History Flexpen U-100 Insulin] .COMPLEX baclofen 10 mg PO TID 08/08/18 08/08/18 History erythromycin 0.5 inch EYE-LEFT DAILY 08/08/18 08/08/18 History latanoprost 1 drp EYE-RIGHT DAILY 08/08/18 08/08/18 History methadone 5 mg PO 0200,1000,1800 08/08/18 08/08/18 History Allergies Allergy/AdvReac Type Severity Reaction Status Date / Time Iodine and Iodide Containing Allergy Intermediate i get Verified 08/08/18 03:20 Produc spots all [IODINE AND IODIDE over my CONTAINING PRODUC] body Penicillins [PENICILLINS] Allergy Intermediate makes my Verified 08/08/18 03:20 bones and joints ache aspirin [ASPIRIN] Allergy Unknown Verified 08/08/18 03:20 meclizine [MECLIZINE] Allergy Unknown Verified 08/08/18 03:20 codeine [CODEINE] AdvReac Unknown gives me Verified 08/08/18 03:20 bloody nightmares potassium [POTASSIUM] AdvReac Unknown Verified 08/08/18 03:20 Review of Systems Review of Systems Patient is obtunded at this time and unable to provide specific information. No family or friends at bedside. Exam Vital Signs (past 8 hours): - 08/08/18 03:16 08/08/18 04:00 08/08/18 04:01 Temperature 97.6 F Pulse Rate 80 54 L 57 L Respiratory Rate 20 12 12 Blood Pressure 144/54 H Blood Pressure [Right Arm] 98/59 L 83/36 L Pulse Oximetry 100 97 96 08/08/18 04:03 08/08/18 04:04 08/08/18 04:05 Temperature Pulse Rate 73 55 L 54 L Respiratory Rate 15 13 12 Blood Pressure Blood Pressure [Right Arm] 91/42 L 80/38 L 73/34 L Pulse Oximetry 96 99 99 08/08/18 04:15 08/08/18 04:22 08/08/18 04:39 Temperature Pulse Rate 45 L 41 L 100 H Respiratory Rate 23 21 20 Blood Pressure Blood Pressure [Right Arm] 73/34 L 111/79 119/100 H Pulse Oximetry 93 93 97 08/08/18 05:16 08/08/18 05:47 Temperature 98.1 F Pulse Rate 90 88 Respiratory Rate 15 21 Blood Pressure 130/69 Blood Pressure [Right Arm] 104/89 Pulse Oximetry 97 99 Oxygen Delivery Method Room Air Narrative Exam Narrative: General appearance patient is morbidly obese 78 years of age female in no apparent distress arousable but unable to answer questions Skin erythema noted to lower extremity bilaterally primarily the lower half of the legs bilaterally ankles and feet. Eyes difficult to assess due to the patient's level of consciousness. Pupils appear equal and reactive to light bilaterally Ears nose throat hearing cannot be assessed at this time. No oropharyngeal lesions are noted. Nose septum to midline no bleeding. Respiratory fairly clear to auscultation no wheezes no crackles fair air movement Cardiovascular regular rate rhythm somewhat distant heart sounds due to the obesity +3 pulses to extremities GI obesity somewhat obscures exam. No he paddle splenomegaly evidence no bruit positive bowel sounds are noted Musculoskeletal patient appears to be moving all 4 limbs equally. No lateralizing deficit evident no clubbing range of motion appears normal Neurologic tardive dyskinesia type movements of her mouth and oral region evident no lateralized neurologic deficit noted. No apparent deficit in cranial nerves. No resting tremor Lymph nodes no lymphadenopathy to neck or axilla evident Objective Labs Result Diagrams: 08/08/18 03:30 08/08/18 03:30 Labs: Laboratory Results - last 24 hr 08/08/18 08/08/18 08/08/18 03:30 03:30 03:30 WBC 9.5 RBC 3.72 L Hgb 11.4 L Hct 33.2 L MCV 89.1 MCH 30.6 MCHC 34.4 RDW 14.4 Plt Count 219 Neut % (Auto) 70.1 Lymph % (Auto) 14.0 L [place] % (Auto) 5.0 Eos % (Auto) 10.0 H Baso % (Auto) 0.9 Neut # (Auto) 6700 H PT 15.4 H INR 1.4 H APTT 36 Sodium 145 Potassium 5.2 H Chloride 105 Carbon Dioxide 25 BUN 54 H Creatinine 3.30 H Estimated GFR 13.6 L BUN/Creatinine Ratio 16.4 Glucose 236 H Calcium 10.2 Total Bilirubin 0.5 AST 15 ALT 25 Alkaline Phosphatase 107 Troponin I < 0.012 B-Natriuretic Peptide 55.1 Total Protein 7.0 Albumin 4.1 Globulin 2.9 Albumin/Globulin Ratio 1.4 Lipase 116 Assessment & Plan Plan: Assessment/Plan Narrative: Toxic encephalopathy Patient apparently has cognitive decline from baseline. At the present time unaware what baseline actually may be. Patient on methadone and responded to Narcan given in the ER. At the present time patient is breathing reasonably well in seemingly protecting her airways. Will hold on further Narcan at this time. Will hold on all sedating medications at this time History of pulmonary embolism on chronic anticoagulant therapy Will continue the Xarelto as tolerated. Note patient with elevated BUN and creatinine at this time. If alternate means of anticoagulant therapy is necessary may need to use a IV heparin infusion since The BUN and creatinine is a bit too high to consider Lovenox at this time. Pre renal failure Patient with an elevated BUN and creatinine which I suspect is secondary to the elevated glucose levels and poor oral intake. Will obtain a urine sodium and osmolality to further investigate functionality of the kidney. Apparent history of congestive heart failure Note patient on Lasix at 40 mg p.o. b.i.d.. We will obtain a echocardiogram 2D. Lasix 40 mg IV q.12 hours at this time while awaiting a BNP blood test. Requesting AP portable chest x-ray to be done as well. A Salgado catheter to be placed and strict ins and outs to be provided Diabetes type 2 on chronic long-term insulin Will provide NPH b.i.d. with a sliding scale. Hemoglobin A1c is pending Chronic pain syndrome Patient on methadone t.i.d. and Home setting. Holding analgesic therapy at this time Stasis dermatitis Patient with prominent erythematous confluent region to both legs distally and ankle feet. These findings consistent with bilateral stasis dermatitis related to her obesity and fluid retention History of stroke No lateralizing neurologic deficit noted on exam while patient is up tended in moving her limbs. Time Spent With Patient Time with patient: Greater than 35 minutes (55 min to admit as observation patient) Quality VTE Deep Vein Thrombosis/Pulmonary Embolism Present on Admission: No
[2018-08-08] MEDS: SODIUM CHLORIDE 0.9% 1,000 ML 100 ML IV ×2 (07:30→18:49)
[2018-08-08 08:04] LABS: Hemoglobin A1C% w Est Avg Glu 8.9 % (4.0-6.0)
[2018-08-08] MEDS: INSULIN ASPART 100 UNIT/ML INSULN PEN SUBCUT (08:23)
[2018-08-08 08:32] LABS: Appearance Urine UA SL CLOUDY; Bilirubin Urine UA NEGATIVE (NEGATIVE); Color Urine UA YELLOW; Glucose Urine UA TRACE g/dL (Normal); Ketones Urine UA NEGATIVE (NEGATIVE); Leukocyte Esterase Urine UA 3+ (NEGATIVE); Nitrite Urine UA POSITIVE (Negative); Occult Blood Urine UA 1+ (Negative); Protein Urine UA NEGATIVE (Negative); Urobilinogen Urine UA 0.2 E.U./dL (0.2); pH Urine UA 5.5 (4.5-8.0)
[2018-08-08 08:43] LABS: RBC Urine 1-5/HPF (0-5/HPF); Squamous Epithelial Cell Urine 0-1 /HPF; WBC Urine 30-100/HPF (0-5/HPF)
[2018-08-08 08:44] LABS: Amorphous Sediment Urine 1+; Bacteria Urine Many (>30); Culture Indicated Urine Specimen Cultured; Mucus Urine 1+ (Negative)
[2018-08-08 08:50] LABS: Urine Cocaine Negative (Negative); Urine Morphine/Opi cutoff 2000 Negative (Negative); Urine Tetrahydrocannabinol Negative (Negative)
[2018-08-08 08:51] LABS: Urine Amphetamines Negative (Negative); Urine Barbiturates Negative (Negative); Urine Benzodiazepines Negative (Negative); Urine MDMA Negative (Negative); Urine Methadone Positive (Negative); Urine Methamphetamines Negative (Negative); Urine Oxycodone Negative (Negative); Urine Phencyclidine Negative (Negative); Urine Tricyclic Antidepressant Negative (Negative)
--- NOTE | 2018-08-08 10:31 | CM.DANOTE ---
DCP: Case received, EMR reviewed, patient sleeping, but placed name and title on white board in room. DCP template completed with information currently available. Patient is a 78 year old female who admitted early this morning to the care of the hospitalist team. PCP: Dr. Dasilva. Payer: confirmed: Medicare/[employer]. Patient came to hospital with symptoms of altered level of conscious and confusion. Was noted to have increase BUN, Glucose, as well as urinary retention. Patient lives at [facility]. Was noted to be confused/sleeping during assessment. Called son and left a message to call back. Called [facility] to get a baseline on patient on the type of care she receives, as well as her cognitive level. Stated that patient does have some confusion, but is alert. Uses wheel-chair/walker, and does need assist with ADLs and meds. P: DCP to continue to follow and assess. Will be determined if she can return to [facility] when stable, or is she will need fci. Would need to be here 3 midnights for this. Alison Núñez RN/[facility]
--- NOTE | 2018-08-08 10:38 | PC.NURSE ---
Addendum entered by Danielle Browning R.N. 08/08/18 14:03: CARDIAC/INTEG - discussed placing scds with , aware pt red, discolored mihai le, both legs pink at upper calf, dusky towards ankle, noted a small fluid filled blister on l mid calf, placed a pink allevyn dsg after removing her own compression wraps, replaced them prior to putting on scd. Original Note: Addendum entered by Danielle Browning R.N. 08/08/18 12:03: NEURO/CARDIAC - discussed pt hr 30's - mid 40's with Zahira in ICU, there, did place bp cuff and now 114/64, with stimulus pt will awaken, states l shoulder discomfort, briefly opened eyes and pointed to her l shoulder, repeats I just want to , let me go with my . Original Note: Addendum entered by Danielle Browning R.N. 08/08/18 11:55: Original Note: AM NOTE - asleep, resp unlabored, open mouth breathing, sat 97% ra, pt does not respond to voice, new orders rec'd and ns 100/hr, per order jose cath placed, pt was incont urine, did arouse and yell out during procedure, kicking legs, immediate return clear, pale yellow urine, emptied 800ml, 3+ mihai le edema w/redness feet to mid calf, no openings noted under wraps, small lesion lat r thigh, tele placed and SA w/hr 52, placed brief to have pt avoid trying to tug on catheter, after several minutes, ret to sleeping, repositioned and bed alarm set.
[2018-08-08] MEDS: ERYTHROMYCIN OPHTH 1 GM OINT 1 APPLIC EYE-LEFT (12:15)
[2018-08-08] MEDS: FUROSEMIDE 40 MG/4 ML VIAL 30 MG IV (12:17)
[2018-08-08] MEDS: CEFTRIAXONE 1 GM/50 ML FROZ.PIGGY IV (16:58)
[2018-08-08] MEDS: LATANOPROST 0.005% OPHTH 2.5 ML 1 DROPS EYE-RIGHT (20:05)
--- NOTE | 2018-08-08 21:43 | PC.NURSE ---
SHIFT NOTE obtunded, inconsistently responds to tactile/painful stimuli. when pt does have short periods of wakefulness, pt is confused and speech can be repetitive (why won't you let me and where am i?). moves all extremities, follows simple commands inconsistently. tele shows HR in 40's, BP slightly low but WNL. MD notified and stated to continue to monitor and notify if BP starts to deviate (no specific parameters given). verified NPH insulin order with MD as pt NPO and only on NS IVF, MD to adjust maintenance fluid orders to contain dextrose. jose intact. repositioned Q2H. frequent visual checks.
[2018-08-09] VITALS (8 sets, daily range): BP systolic 104–142; BP diastolic 43–65; PULSE 56–127; RESP 14–18; TEMP 36.2–37.3; O2SAT 92–100
[2018-08-09] MEDS: FUROSEMIDE 40 MG/4 ML VIAL 30 MG IV ×3 (00:13→23:53)
[2018-08-09] MEDS: ONDANSETRON 4 MG/2 ML INJ IV (01:14)
[2018-08-09] MEDS: SODIUM CHLORIDE 0.9% 1,000 ML 100 ML IV ×2 (04:10→14:04)
--- NOTE | 2018-08-09 04:46 | PC.NURSE ---
0115 pt had spontanous emesis of bright yellow liquid onto gown,sheet,bed rail and sm amt on floor. no s/s choking, able to spit and let it run out of her mouth. pt been positioned on to her r si w/hob slightly elevated. medicated w/4mg iv zofran with no further emesis or reports of nausea. 2 full assist for repositioning,pillows to support. c/o l shoulder and bilat elbow pain that resolved after position change and pillows under each arm. face, arms,hands swollen w/pt unable to make fist. abd round mod. firm, nontender. lungs cl a-p, sats 92-98% le's pink in color mid thighs downward below knees, leg wraps in place w/calf scds worn over,faint pp's cms wnl restless feet and le movement off/on.pt oriented to self, aware she is in hospital, knows her son's name is Brian. pt makes frequent comments about wanting to .
[2018-08-09 06:21] LABS: Add Manual Diff / Slide Review NO; Basophils Percent Auto 1.1 % (0-2); Eosinophils Percent Auto 5.8 % (2-4); Hematocrit 28.6 % (36-46); Lymphocytes Percent Auto 21.7 % (25-40); Mean Corpuscular HGB Conc 34.9 % (30-36); Mean Corpuscular Hemoglobin 30.8 PG (26-34); Mean Corpuscular Volume 88.2 fL (80-100); Monocytes Percent Auto 6.9 % (3-14); Neutrophils Absolute Auto 4700 /uL (3000-5900); Neutrophils Percent Auto 64.5 % (50-75); Platelet Count 176 X10^3/uL (150-400); Red Blood Cell Count 3.25 X10^6/uL (4.0-5.2); White Blood Cell Count 7.4 X10^3/uL (4.5-11.0)
[2018-08-09 06:33] LABS: Alanine Aminotransferase 21 IU/L (9-52); Albumin Globulin Ratio 1.2 (1.0-2.8); Alkaline Phosphatase 69 U/L (38-126); Aspartate Aminotransferase 15 IU/L (14-36); BUN Creatinine Ratio 15.9 (6-22); Bilirubin Total 0.3 mg/dL (0.2-1.3); Blood Urea Nitrogen 46 mg/dL (7-17); Calcium 9.2 mg/dL (8.4-10.2); Carbon Dioxide 25 mmol/L (22-32); Chloride 113 mmol/L (98-107); Estimated Glomerular Filt Rate 15.7 mL/min (>60); Globulin 2.6 g/dL (1.7-4.1); Glucose 150 mg/dL (80-110); HEMOLYSIS < 15 (0-50); Potassium 4.7 mmol/L (3.4-5.1); Sodium 148 mmol/L (137-145); Total Protein 5.6 g/dL (6.3-8.2)
[2018-08-09] MEDS: INSULIN NPH 100 UNIT/ML VIAL 10 UNIT SUBCUT ×2 (09:14→17:04)
[2018-08-09] MEDS: RIVAROXABAN 10 MG TABLET 15 MG PO (09:17)
[2018-08-09] MEDS: ERYTHROMYCIN OPHTH 1 GM OINT 1 APPLIC EYE-LEFT (09:24)
--- NOTE | 2018-08-09 13:00 | PT.IIE ---
Current Diagnoses Toxic encephalopathy (08/08/18) Surgical History (Last Updated 08/08/18 @ 05:13 by César Tinoco DO) Hx of appendectomy (Acute) Hx of tonsillectomy (Acute) Hx of total knee arthroplasty (Acute) Medical History (Last Updated 08/08/18 @ 05:13 by César Tinoco DO) CVA (cerebral vascular accident) (Acute) Cataract (Acute) Chronic pain (Acute) Depression (Acute) Diabetes (Acute) H/O: hysterectomy (Acute) Hypertension (Acute) Lower extremity edema (Acute) Pulmonary embolism (Acute) Physical Therapy Inpatient Evaluation/Re-Eval M1 PT/OT-IP Prior Functional Status Start: 08/09/18 13:38 Freq: Status: Active Protocol: Document 08/09/18 13:00 [facility] (Rec: 08/09/18 13:49 [facility] [id number]) Medical Review Prior Functional Status Medical History Reviewed Yes Mobility and Gait per SJ, pt able to transfer indep. and perform indep. room ambulation with walker Activities of Daily Living and IADL's per SJ, pt performs indep. pericare, dressing Social History Living Arrangements Skilled Nurse Facility Additional Social History Comment Pt is a resident @ [facility]isted [facility]. M2 PT-IP Current Condition Start: 08/09/18 13:38 Freq: Status: Active Protocol: Document 08/09/18 13:00 [facility] (Rec: 08/09/18 13:49 [facility] [id number]) Physical Therapy Current Condition Current Condition Evaluation Date 08/09/18 Treatment Diagnosis SOB, AMS, impaired mobility Onset Date 08/08/18 M3 PT-IP Subjective Start: 08/09/18 13:38 Freq: Status: Active Protocol: Document 08/09/18 13:00 [facility] (Rec: 08/09/18 13:49 [facility] [id number]) Subjective Physical Therapy Visit Type Type Initial Evaluation Visit Start Time 12:36 Visit Stop Time 13:00 Total Visit Minutes 24 Number of WHEEL INSPECTOR Visits 0 Physical Therapy Visit Comments Patient Comments pt reports pain in her buttock and R elbow/arm Patient Goals unable to state M4 PT-IP Mobility and Gait Start: 08/09/18 13:38 Freq: Status: Active Protocol: Document 08/09/18 13:00 [facility] (Rec: 08/09/18 13:49 [facility] [id number]) PT-Bed Mobility Assessment Sit to Supine Sit to Supine Maximum Assistance 2 Person Assistance Scooting Scooting Up and Down in Bed Dependent PT-Transfer Assessment Sit to and From Stand Sit to and from Stand Moderate Assistance 1 Person Assistance Use of Upper Extremities Equipment Transfer Assistive Device Gait Belt Front Wheeled Walker Transfers Transfer Destination Bed Transfer Technique Stand Step Pivot Transfer Ability Level of Assist Contact Guard Assistance Comments Mobility Comments pt reported pain with palpation of the RUE @ any region, but able to grasp and WB using FWW through the RUE without c/o pain. Gait Assessment Comments Gait Comments not able to be assessed PT-Balance Assessment Sitting Balance and Reactions Static Sitting Balance Ability Good Dynamic Sitting Balance Ability Fair Standing Balance and Reactions Static Standing Balance Ability Fair Dynamic Standing Balance Ability Poor Device Used FWW M5 PT-IP Objective Assessments Start: 08/09/18 13:38 Freq: Status: Active Protocol: Document 08/09/18 13:00 [facility] (Rec: 08/09/18 13:49 [facility] [id number]) Orientation Orientation/Cognition Level of Alertness Lethargic Gross Range of Motion Upper Extremity ROM Impairments B shoulder flexion to 90 degrees, not willing to lift higher Strength Comments Strength Comments pt unable to be formally tested with MMT due to cognitive status M6 PT-IP Treatment Start: 08/09/18 13:38 Freq: Status: Active Protocol: Document 08/09/18 13:00 [facility] (Rec: 08/09/18 13:49 [facility] [id number]) Physical Therapy Treatment Education Education Provided Safety M7 PT-IP Assessment and Plan Start: 08/09/18 13:38 Freq: Status: Active Protocol: Document 08/09/18 13:00 [facility] (Rec: 08/09/18 13:49 [facility] [id number]) PT Summary Assessment and Plan Potential Rehabilitation Potential Good Status of Condition at Evaluation Evolving Summary Impairments Pain ROM Strength Balance Cognition Bed Mobility Transfers Gait Activity Tolerance Assessment Summary Pt is lethargic, able to answer some questions, and overall very deconditioned. She was able to take transfer steps to the bed using a FWW and CGA, but requires assistance with sit to stand and bed mobility. Pt's prior level of function reportedly is independent in her room at [facility] with a walker to bathroom and transfers chair<->bed, indep. ADLs. Pt is well below her functional baseline at this time. The assistance level required at this point is too high for staff to manage at [facility]. Pt would greatly benefit from SNF rehabilitation to progress her mobility, decrease the burden of care, and improve independence to safely return back to assisted living. Goals Bed Mobility Goal Standby Assistance Transfer Goal Standby Assistance Gait Goal Standby Assistance Front Wheel Walker Gait Distance 25 Frequency of Treatment Frequency Of Treatment Twice a Day Treatment Plan Physical Therapy Treatment Plan Bed Mobility Training Transfer Training Gait Training Therapeutic Exercise Recommendations To Nursing Amount of Assist Needed 2 Person Assist Discharge Recommendations PT Discharge Recommendations SNF Rehab
--- NOTE | 2018-08-09 13:03 | PC.NURSE ---
Gave pt drink of water, she coughed and still coughing. P/T assisted nurse in transferring patient back to bed from chair, pt able to stand and transfer with assistance and sit down on bed, pt c/o sore bottom, waffle cushion placed under pt bottom, pillows under arms and knees for support.
--- NOTE | 2018-08-09 15:40 | CM.DPC ---
DCP: continued: case received, EMR reviewed and met briefly with pt. She confirms that she lives at [facility] and expects to return there when she is ready for d/c. She is noted to be groggy, complaining of dry mouth, asking for water. J[employer] CLE[employer] Shira is just starting to work with pt now. PT and OT are also ordered. Will plan to speak with DNS Sonya/BRITTANI when she is available to get more of a sense of patient's prior level of function. Pt is noted to be on routine methadone, baclophen and lamicatal as well as prn vistaril. Is unclear at this point if this has anything to do with her lethargic state. P: may need snf before return to her [facility] setting....CM/DCP team will be following. Full dx and tx plan are in process at this point.
--- NOTE | 2018-08-09 15:57 | PM.PN.1 ---
Subjective Date Patient Seen: 08/09/18 Time Patient Seen: 07:01 Interval history: History of present illness Follow-up on patient with a septic encephalopathy due to urinary tract infection Rocephin antibiotic started. Bedside swallow eval by speech notes she is safe to swallow with thin liquids as of August 09 Patient very tearful requesting the . Patient notes her about a year ago. Offered antidepressant several times today. Patient declined Will need to have an intervention with the sons who live in the area help the patient move forward regarding her 's 1 year ago Review of systems No chest pain or shortness of breath no nausea Patient wants to she feels like she needs to join her who a year ago Exam Vital Signs (past 8 hours): - 08/09/18 09:00 08/09/18 11:00 08/09/18 14:30 Temperature 98 F 99.1 F Pulse Rate 60 127 H Respiratory Rate 16 14 Blood Pressure 120/56 L 142/65 H Pulse Oximetry 95 98 100 Oxygen Delivery Method Room Air Oxygen Flow Rate 0 Narrative Exam Narrative: General appearance patient is easily tearful. Patient is requesting to . Patient notes her 1 year ago and she wants to join him. Psychiatric was oriented to time place person. Mood is sad and tearful. Affect is down the patient is emotionally labile Respiratory Tony clear to auscultation no wheezes crackles good airflow Cardiovascular regular rate rhythm no murmurs +3 pulses to extremities GI is benign and soft nontender positive bowel sounds no bruits no guarding Neurologic no focal neurologic changes cranial nerves 2-12 grossly intact Objective Labs Result Diagrams: 08/09/18 06:00 08/09/18 06:00 Labs: Laboratory Results - last 24 hr 08/09/18 08/09/18 06:00 06:00 WBC 7.4 RBC 3.25 L Hgb 10.0 L Hct 28.6 L MCV 88.2 MCH 30.8 MCHC 34.9 RDW 14.0 Plt Count 176 Neut % (Auto) 64.5 Lymph % (Auto) 21.7 L Stephenson % (Auto) 6.9 Eos % (Auto) 5.8 H Baso % (Auto) 1.1 Neut # (Auto) 4700 Sodium 148 H Potassium 4.7 Chloride 113 H Carbon Dioxide 25 BUN 46 H Creatinine 2.90 H Estimated GFR 15.7 L BUN/Creatinine Ratio 15.9 Glucose 150 H Calcium 9.2 Total Bilirubin 0.3 AST 15 ALT 21 Alkaline Phosphatase 69 Total Protein 5.6 L Albumin 3.0 L Globulin 2.6 Albumin/Globulin Ratio 1.2 Assessment & Plan Plan: Assessment/Plan Narrative: Septic encephalopathy After patient admitted a urinalysis was obtained was strongly positive for urinary tract infection. Rocephin antibiotic started. Follow up on urine culture and sensitivity Patient on methadone and responded to Narcan given in the ER. Patient's level of consciousness has improved remarkably. Patient is well oriented to time place person in a.m. on August 09 History of pulmonary embolism on chronic anticoagulant therapy Continue the Xarelto as tolerated. Note patient with elevated BUN and creatinine on admission suggestive of dehydration. Will continue patient's anticoagulant therapy Xarelto now that she is awake and can safely swallow by mouth Pre renal failure Patient with an elevated BUN and creatinine which I suspect is secondary to the elevated glucose levels and poor oral intake. Will obtain a urine sodium and osmolality to further investigate functionality of the kidney. Apparent history of congestive heart failure Note patient on Lasix at 40 mg p.o. b.i.d.. We will obtain a echocardiogram 2D. Lasix 40 mg IV q.12 hours at this time while awaiting a BNP blood test. Requesting AP portable chest x-ray to be done as well. A Salgado catheter to be placed and strict ins and outs to be provided Diabetes type 2 on chronic long-term insulin Will provide NPH b.i.d. with a sliding scale. Hemoglobin A1c is pending ADA diet to be provided starting August 09 Chronic pain syndrome Patient on methadone t.i.d. and Home setting. Understandably so, held the narcotic therapy on admission Will resume patient's usual home analgesic therapy on August 09 and she is swallowing safely and well oriented Stasis dermatitis Patient with prominent erythematous confluent region to both legs distally and ankle feet. These findings consistent with bilateral stasis dermatitis related to her obesity and fluid retention History of stroke No lateralizing neurologic deficits noted on admission today Time Spent With Patient Time with patient: Greater than 35 minutes (45 min of O2 to the patient today) Quality VTE Deep Vein Thrombosis/Pulmonary Embolism Present on Admission: No
[2018-08-09] MEDS: CEFTRIAXONE 1 GM/50 ML FROZ.PIGGY IV (16:41)
--- NOTE | 2018-08-09 16:41 | ST.IPIE ---
Care Team Visit Care Team Role Provider Type Radhames Dasilva MD Primary Care Provider Physician Specialty: Internal Medicine Address: [address] [place] [address], [facility] Email: César Tinoco DO Emergency Provider Physician Specialty: Emergency Medicine Address: [address] [place] [address] Email: Lady Chapa MD Admit Provider Physician Attending Provider Specialty: Internal Medicine Address: [address] [place] [address] Email: Current Diagnoses Toxic encephalopathy (08/08/18) Past Medical History (Last Updated 08/08/18 @ 05:13 by César Tinoco DO) CVA (cerebral vascular accident) (Acute Medical) Cataract (Acute Medical) Chronic pain (Acute Medical) Depression (Acute Medical) Diabetes (Acute Medical) H/O: hysterectomy (Acute Medical) Hypertension (Acute Medical) Lower extremity edema (Acute Medical) Pulmonary embolism (Acute Medical) ST IP Initial Evaulation Report SECURED ENTRANCE MONITOR Clinical Swallow Evaluation Start: 08/09/18 16:07 Freq: Status: Active Protocol: Document 08/09/18 16:07 CRUZ (Rec: 08/09/18 16:36 [facility] [id number]) Clinical Swallow Evaluation Session Time Visit Start Time 15:10 Visit Stop Time 15:40 Total Visit Minutes [address] Rahman Reason for Referral Difficulty swallowing water and pudding Setting Assessment Location Acute Care Visit Type Note Type Initial Evaluation Next Note Type Next Note Type Treatment Note Patient Information Identification Type Name ID Wristband History 78-yr-old female resident of [facility] with septic encephalopathy d/t urinary tract infection. Per Nsg report, the pt exhibited coughing with thin liquids and spat out pudding. Clinical bedside swallow evaluation was ordered. This SECURED ENTRANCE MONITOR spoke with [facility], who reported that pt's baseline diet is regular texture, thin liquids, able to self-feed. The pt adamantly and repeatedly stated she only eats pureed foods including mashed potatoes and gravy, Cream of Wheat, and vanilla pudding. The pt reports having full dentures, although she was wearing only uppers today. She stated her lower plate is at [facility] and she cannot eat without them. 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 Was able to read time on the wall clock. Chronic pain CVA Depression Diabetes HTN Lower extremity edema Pulmonary embolism Surgical Hx: Hx of appendectomy Hx of tonsillectomy Hx of total knee arthroplasty Subjective Observations The pt was lying in bed resting upon SECURED ENTRANCE MONITOR arrival. She aroused to name, requested a drink of water, and stated her lower back hurt. Nsg assisted SECURED ENTRANCE MONITOR in repositioning the pt upright in her bed. The pt became tearful twice during the evaluation, stating she wished to and be with Harinder who appears to be her . She was consoled and able to proceed with the evaluation. The pt was oriented to person, place, month and year. She stated Shantel as president. When told current president, she responded, Oh, yeah. He's really rich. Per Nsg, the pt 's son had visited her earlier in the day but she did not remember this. Evaluation Liquids Trialed Thin Solids Trialed Puree Administration Type Tea Spoon Cup Single Sip Cup Consecutive Sips Straw Self-Feeding Oral Impairment Mildly Impaired Oral Strategies Upright at 90 degrees Oral Phase Comments Mildy discoordinated lingual movements resulting in extended bolus prep phase. Pt exhibited lingual mashing with pureed textures. No anterior labial spillage. Good oral clearance. Swallow trigger appears to be prompt. Pharyngeal Impairment WFL Pharyngeal Strategies Sitting Upright (90 deg) Small Bites and Sips Pharyngeal Phase Comments The pt exhibited mild throat clearing at the end of the evaluation. No other overt s/ sx of aspiration observed. Occasional audible swallow with initial swallows of thin liquids only. The pt maintained O2 sats of 92-97% on RA during oral consumption. The pt was able to self-feed both solids and liquids, the latter from cup and straw. Findings Dysphagia Type Mild oral dysphagia Rehabilitation Potential Good Impressions Mild oral dysphagia secondary to dentition and reduced lingual strength and coordination. Pharyngeal swallow phase appears to be WFL with trials limited to thin liquids and pureed textures, per pt request. The pt denies eating foods other than pureed texture at [facility]. This appears to be her strong preference. The pt demonstrates safety adequate for pureed diet and thin liquids. Diet Recommendations Liquids Order Thin Diet Order Dysphagia Blenderized Medication Recommendations Whole in Carrier Additional Dietary Needs Encourage to Self-Feed Aspiration Precautions Recommended Precautions Upright at 90 Degrees Small Bites/Sips Additional Precautions Pt must be alert and oriented for oral intake Treatment Plan Placement Recommendations after Mat Machine Tender Care Facility Discharge Appropriate for Therapy Yes Therapy Recommendations Monitor swallow safety as related to pt cognitive status . Assess swallow safety for upgraded diet textures if so desired by pt. Request pt's family obtain lower denture plate from [facility] if able. Dysphagia Goals The pt will tolerate least restricted diet to meet her nutrition and hydration needs. The pt will comply with general aspiration precautions to reduce risk of aspiration. SECURED ENTRANCE MONITOR Follow Up 1-2 visits SECURED ENTRANCE MONITOR Oral Motor Exam Start: 08/09/18 16:36 Freq: Status: Active Protocol: Document 08/09/18 16:36 CRUZ (Rec: 08/09/18 16:41 [facility]Z [id number]) Oral Motor Examination Face Facial Symmetry Left Side Asymmetry Facial Movement Controlled Comments Mild left side weakness observed with smile. Mouth Teeth Characteristics Missing Dental Appliance Teeth Comment Full upper dentures, well fitting. Edentulous & without lower denture plate Pucker Lips Reduced ROM Weak Smile Droops Left Puff Cheeks Reduced Strength Tongue Size Large Tongue Movement Protrusion/Retraction Strength WNL Protrusion/Retraction Coordination WNL Elevation/Depression Strength WFL Elevation/Despression Range of Movement Normal Elevation/Depression Coordination WNL Lateralization Strength Moderately Reduced Lateralization Coordination WNL Comments Pt unable to press tongue into cheeks. Instead pressed into corners of mouth. Unsure if this was d/t comprehension of instructions or lingual coordination/ROM deficits. Demonstration and verbal instructions were provided. Palate Soft Palate Description Normal Velopharyngeal Movement Normal Hyolaryngeal Movement Hyolaryngeal Movement WNL Volitional Cough/Swallow Comments Volitional cough present. Volitional cough not elicited.
--- NOTE | 2018-08-09 17:27 | OT.IP.TRT ---
Current Diagnoses Toxic encephalopathy (08/08/18) Occupational Therapy Treatment Note M3 OT- IP Subjective and Pain Start: 08/09/18 17:26 Freq: Status: Active Protocol: Document 08/09/18 17:26 [facility] (Rec: 08/09/18 17:26 [facility] [id number]) OT- Subjective Occupational Therapy Visit Type Type Administrative Note Notes Pt having dinner , therefore to see pt tomorrow for OT eval .
[2018-08-09] MEDS: LATANOPROST 0.005% OPHTH 2.5 ML 1 DROPS EYE-RIGHT (20:35)
--- NOTE | 2018-08-09 21:58 | PC.NURSE ---
SHIFT NOTE pt awake this shift but remains confused, frequently yelling out. caruso snot use call light consistently. frequently asking why won't you let me ? or with complaints of multiple pain issues. pt frequently repositioned and reoriented to place and situation. tele monitoring and jose intact. call light within reach.
[2018-08-10] VITALS (12 sets, daily range): BP systolic 102–130; BP diastolic 42–67; PULSE 44–61; RESP 16–22; TEMP 36.1–36.7; O2SAT 95–100
[2018-08-10] MEDS: SODIUM CHLORIDE 0.9% 1,000 ML 100 ML IV (00:48)
[2018-08-10] MEDS: METHADONE 10 MG TABLET 5 MG PO ×2 (03:15→11:21)
[2018-08-10 06:22] LABS: Add Manual Diff / Slide Review NO; Basophils Percent Auto 0.9 % (0-2); Eosinophils Percent Auto 10.7 % (2-4); Hematocrit 29.5 % (36-46); Hemoglobin 10.2 g/dL (12.0-16.0); Lymphocytes Percent Auto 25.7 % (25-40); Mean Corpuscular HGB Conc 34.6 % (30-36); Mean Corpuscular Hemoglobin 30.5 PG (26-34); Mean Corpuscular Volume 87.9 fL (80-100); Monocytes Percent Auto 8.2 % (3-14); Neutrophils Absolute Auto 4100 /uL (3000-5900); Neutrophils Percent Auto 54.5 % (50-75); Platelet Count 184 X10^3/uL (150-400); Red Blood Cell Count 3.36 X10^6/uL (4.0-5.2); Red Cell Distribution Width 14.1 % (11.6-14.8); White Blood Cell Count 7.5 X10^3/uL (4.5-11.0)
[2018-08-10 06:31] LABS: Alanine Aminotransferase 23 IU/L (9-52); Albumin 3.2 g/dL (3.5-5.0); Albumin Globulin Ratio 1.1 (1.0-2.8); Alkaline Phosphatase 71 U/L (38-126); Aspartate Aminotransferase 17 IU/L (14-36); BUN Creatinine Ratio 14.6 (6-22); Bilirubin Total 0.3 mg/dL (0.2-1.3); Blood Urea Nitrogen 38 mg/dL (7-17); Calcium 9.3 mg/dL (8.4-10.2); Carbon Dioxide 26 mmol/L (22-32); Chloride 111 mmol/L (98-107); Estimated Glomerular Filt Rate 17.8 mL/min (>60); Globulin 2.8 g/dL (1.7-4.1); Glucose 109 mg/dL (80-110); HEMOLYSIS < 15 (0-50); Potassium 4.1 mmol/L (3.4-5.1); Sodium 149 mmol/L (137-145)
[2018-08-10] MEDS: SODIUM CHLORIDE 0.45% 1,000 ML 125 ML IV ×2 (08:55→16:29)
--- NOTE | 2018-08-10 08:55 | OT.IP.EVAL ---
Current Diagnoses Toxic encephalopathy (08/08/18) Past Medical History (Last Updated 08/08/18 @ 05:13 by César Tinoco DO) CVA (cerebral vascular accident) (Acute) Cataract (Acute) Chronic pain (Acute) Depression (Acute) Diabetes (Acute) H/O: hysterectomy (Acute) Hypertension (Acute) Lower extremity edema (Acute) Pulmonary embolism (Acute) Surgical History (Last Updated 08/08/18 @ 05:13 by César Tinoco DO) Hx of appendectomy (Acute) Hx of tonsillectomy (Acute) Hx of total knee arthroplasty (Acute) Occupational Therapy Inpatient Evaluation/Re-Eval M1 PT/OT-IP Prior Functional Status Start: 08/09/18 13:38 Freq: Status: Active Protocol: Document 08/09/18 13:00 [facility] (Rec: 08/09/18 13:49 [email or web address] [id number]) Medical Review Prior Functional Status Medical History Reviewed Yes Mobility and Gait per [facility], pt able to transfer indep. and perform indep. room ambulation with walker Activities of Daily Living and IADL's per [facility], pt performs indep. pericare, dressing Social History Living Arrangements Skilled Nurse Facility Additional Social History Comment Pt is a resident @ [facility]/Assisted Living. M1 PT/OT-IP Prior Functional Status Start: 08/09/18 17:26 Freq: NEEDED Status: Active Protocol: Document 08/10/18 08:15 [facility] (Rec: 08/10/18 08:55 [facility] [id number]) Medical Review Prior Functional Status Medical History Reviewed Yes Mobility and Gait per [facility], pt able to transfer indep. and perform indep. room ambulation with walker Activities of Daily Living and IADL's per [facility], pt performs indep. pericare, dressing, change of brief, pt did not wear socks and just booties. Prior Functional Level (Other details) Staff states that pt often slept in her wc. Social History Living Arrangements Skilled Nurse Facility Additional Social History Comment Pt is a resident @ [facility]/Assisted Living. M2 OT-IP Current Condition Start: 08/09/18 17:26 Freq: Status: Active Protocol: Document 08/10/18 08:15 [facility] (Rec: 08/10/18 08:55 [facility] [id number]) Occupational Therapy Current Condition Current Condition Evaluation Date 08/10/18 Treatment Diagnosis UTI, weakness, AMS Diagnosis Onset Date 08/09/18 M3 OT- IP Subjective and Pain Start: 08/09/18 17:26 Freq: Status: Active Protocol: Document 08/10/18 08:15 [facility] (Rec: 08/10/18 08:55 [facility] [id number]) OT- Subjective Occupational Therapy Visit Type Type Initial Evaluation Visit Start Time 07:50 Visit Stop Time 08:15 Total Visit Minutes 25 Occupational Therapy Visit Comments Patient Comments Pt agreeable to get up. OT Pain Assessment Pain When Pain Assessed At Rest Pain Present Pain Present Denied Pain M4 OT- IP ADL's Start: 08/09/18 17:26 Freq: Status: Active Protocol: Document 08/10/18 08:15 [facility] (Rec: 08/10/18 08:55 [facility] [id number]) OT ADL-Grooming Comments OT Grooming Comments Pt able to wash her face from the recliner. OT ADL-Dressing General Eval Lower Body Dressing Ability Total Assistance Comments OT Dressing Comments Pt dependent to michelle socks. Pt states wears gown at [facility] and she states they assist with her brief. Per staff she does all her toileting on her own. M6 OT- IP Functional Cognition Start: 08/09/18 17:26 Freq: Status: Active Protocol: Document 08/10/18 08:15 [facility] (Rec: 08/10/18 08:55 [facility] [id number]) Cognitive Factors Limiting Selfcare Function Cognitive Ability Level of Alertness Alert Confusional State Patient Orientation Name Attention Span Ability Capable of Focused Attention Unable to Sustain Attention Ability to Follow Commands Able to Follow One Step Commands Able to Follow One Step Commands with Repetition Memory Description Short Term Impaired Working Impaired Safety Awareness Underestimates Need for Assistance Cognitive Comments Cognitive Assessment Comments Pt not recalling information of PLOF as compared to information gotten by staff at [facility]. Pt confused as to why she had so many lines connected to her. Pt states that she sleep in her wc at night, needs assist with brief , and unable to recall if staff assist for bathing needs . Per staff at [facility] does not have any cognitive deficits. OT- Vision and Hearing OT- Hearing Assessment OT- Hearing Assessment WFL M7 OT- IP Mobility and Balance Start: 08/09/18 17:26 Freq: Status: Active Protocol: Document 08/10/18 08:15 [facility] (Rec: 08/10/18 08:55 [facility] [id number]) OT- Bed Mobility Assessment Rolling Type of Rolling Roll to Left Supine to Sit Supine to Sit Assist Moderate Assistance 1 Person Assistance Scooting Scooting to Edge of Bed Contact Guard Assistance OT-Transfer Assessment Sit to and From Stand Sit to and from Stand Contact Guard Assistance Minimal Assistance Transfers Transfer Ability Minimal Assistance Technique Transfer Destination Bed Chair Transfer Technique Stand Step Pivot Devices Transfer Assistive Devices Gait Belt Front Wheeled Walker Comments Mobility Comments Pt needing assist to help get her weight over her left hip, MODA to help get up from supine to sit. Pt tends to grab FWW to stand versus push up fromt he bed. Therefore assist to hold FWW in place and SAURAV for steadying while up on her feet initially. OT- Balance Assessment Sitting Balance and Reactions Static Sitting Balance Ability Good Dynamic Sitting Balance Ability Fair Standing Balance and Reactions Static Standing Balance Ability Fair M8 OT- IP Objective Assessments Start: 08/09/18 17:26 Freq: Status: Active Protocol: Document 08/10/18 08:15 [facility] (Rec: 08/10/18 08:55 [facility] [id number]) OT Gross Range of Motion Upper Extremity Range of Motion Assessment Right Impaired ROM Impairments RUE shoulder flexion 0-60, LUE 0-100. OT Strength Comments Strength Comments BUE strength 4-/5 to 3+/5. OT-Muscle Tone Assessment Muscle Tone WNL Yes M9 OT- IP Assessment and Plan Start: 08/09/18 17:26 Freq: Status: Active Protocol: Document 08/10/18 08:15 [facility] (Rec: 08/10/18 08:55 [facility] [id number]) OT Summary Assessment and Plan Potential Rehabilitation Potential Good Analytic Complexity at Evaluation Low Summary OT Impairments Range of Motion Strength Balance Functional Cognition Functional Mobility Grooming Dressing Toileting Toilet Transfers Progress Towards Goals Slow Progress due to Medical Issues Slow Progress due to Activity Tolerance Slow Progress due to Cognition Assessment Summary Pt low complexity and now needing one person assist all needs and prior per [facility] staff was mostly independent with her FWW. Pt pending progress and medical stability may benefit from short skilled rehab versus back to [facility] with increased care. Goals Self-Feeding Goal Independent Grooming Goal Standby Assistance Dressing Goal Standby Assistance Toileting Goal Standby Assistance Toilet Transfer Goal Standby Assistance Days to Meet Goals 5 Frequency of Treatment Frequency Of Treatment Once a Day Treatment Plan OT Treatment Plan ADL Training Functional Cognition Training Functional Mobility Patient/Family Education Discharge Planning Other Treatment Recommendations and Next Stand at sink for grooming, Treatment Focus dressing. Discharge Recommendations OT Discharge Recommendations SNF Rehab Other Discharge Recommendations Pending progress possible back to [facility] with increased assist.
[2018-08-10] MEDS: INSULIN NPH 100 UNIT/ML VIAL 10 UNIT SUBCUT ×2 (08:59→17:21)
[2018-08-10] MEDS: LISINOPRIL 20 MG TABLET PO (09:01)
[2018-08-10] MEDS: RIVAROXABAN 10 MG TABLET 15 MG PO (09:02)
[2018-08-10] MEDS: ASCORBIC ACID 500 MG TABLET PO (09:03)
[2018-08-10] MEDS: FUROSEMIDE 40 MG TABLET PO ×2 (09:03→17:30)
[2018-08-10] MEDS: ERYTHROMYCIN OPHTH 1 GM OINT 1 APPLIC EYE-LEFT (09:03)
[2018-08-10] MEDS: ATORVASTATIN 20 MG TABLET 40 MG PO (09:03)
[2018-08-10] MEDS: lamoTRIgine 100 MG TABLET 300 MG PO (09:04)
[2018-08-10] MEDS: glipiZIDE 5 MG TABLET 10 MG PO ×2 (09:04→16:30)
[2018-08-10] MEDS: CHOLECALCIFEROL (VITAMIN D3) 1,000 UNIT TABLET 1000 UNIT PO (09:05)
[2018-08-10] MEDS: FUROSEMIDE 20 MG/2 ML VIAL IV (09:12)
--- NOTE | 2018-08-10 11:59 | PT.IPTN ---
Current Diagnoses Toxic encephalopathy (08/08/18) Physical Therapy Treatment Note M2 PT-IP Current Condition Start: 08/09/18 13:38 Freq: Status: Active Protocol: Document 08/10/18 11:59 [facility] (Rec: 08/10/18 12:06 [facility] [id number]) Physical Therapy Current Condition Current Condition Evaluation Date 08/09/18 Treatment Diagnosis SOB, AMS, impaired mobility Onset Date 08/08/18 M3 PT-IP Subjective Start: 08/09/18 13:38 Freq: Status: Active Protocol: Document 08/10/18 11:59 [facility] (Rec: 08/10/18 12:06 [facility] [id number]) Subjective Physical Therapy Visit Type Type Treatment Note Visit Start Time 11:37 Visit Stop Time 11:59 Total Visit Minutes 22 Physical Therapy Visit Comments Patient Comments pt states she has been able to get up to go to the BR. M4 PT-IP Mobility and Gait Start: 08/09/18 13:38 Freq: Status: Active Protocol: Document 08/10/18 11:59 [facility] (Rec: 08/10/18 12:06 [facility] [id number]) PT-Transfer Assessment Sit to and From Stand Sit to and from Stand Minimal Assistance 1 Person Assistance Use of Upper Extremities Equipment Transfer Assistive Device Gait Belt Front Wheeled Walker Transfers Transfer Destination Chair Transfer Ability Level of Assist Contact Guard Assistance Gait Assessment Gait Gait Assistance Required: Contact Guard Assist Distance (Feet) 60 Assistive Devices Assistive Device Gait Belt Front Wheeled Walker Gait Deviations General Gait Pattern Decreased Stride Length Decreased Feet Clearance Flexed Trunk Factors Limiting Gait Function Factors Limiting Gait Function Decreased Activity Tolerance Decreased Strength Poor Balance Comments Gait Comments pt leaning forward as she fatigued. HR 75 bpm and O2 97% on RA after gait. M5 PT-IP Objective Assessments Start: 08/09/18 13:38 Freq: Status: Active Protocol: Document 08/09/18 13:00 [facility] (Rec: 08/09/18 13:49 [facility] [id number]) Orientation Orientation/Cognition Level of Alertness Lethargic Gross Range of Motion Upper Extremity ROM Impairments B shoulder flexion to 90 degrees, not willing to lift higher Strength Comments Strength Comments pt unable to be formally tested with MMT due to cognitive status M6 PT-IP Treatment Start: 08/09/18 13:38 Freq: Status: Active Protocol: Document 08/09/18 13:00 [facility] (Rec: 08/09/18 13:49 [facility] [id number]) Physical Therapy Treatment Education Education Provided Safety M7 PT-IP Assessment and Plan Start: 08/09/18 13:38 Freq: Status: Active Protocol: Document 08/10/18 11:59 [facility] (Rec: 08/10/18 12:06 [facility] [id number]) PT Summary Assessment and Plan Summary Assessment Summary Pt more alert this a.m., able to ambulate 60 ft using a FWW. She does require physical assistance to get up out of the chair, but overall is improving requiring less physical assistance and performing higher level of activity. Expect that [facility] will assess pt prior to d/c, but so depending on the level of care they can provide, the pt may be able to return back to [facility] if they can provide manual assistance with transfers and gait, if not, then recommend SNF. Goals Bed Mobility Goal Standby Assistance Transfer Goal Standby Assistance Gait Goal Standby Assistance Front Wheel Walker Gait Distance 25 Days to Meet Goals 2 Frequency of Treatment Frequency Of Treatment Twice a Day Treatment Plan Other Recommendations and Next Treatment prog. gait, overall mobility Focus including bed and sit<->stand Recommendations To Nursing Amount of Assist Needed 1 Person Assist Discharge Recommendations PT Discharge Recommendations Home with 24/7 Assist SNF Rehab Other Discharge Recommendations SNF vs. back to [facility], depending on assistance [facility] can provide (needs 1 assist for transfers and gait)
--- NOTE | 2018-08-10 14:41 | CM.DPC ---
DCP: continued: spoke now with [facility] DNS Sonya. She confirms she is able to access the EMR at [facility]. She confirms pt's prior level of function which does differ from the information a care connector had provide to the therapy team. PLF: pt is a one person assist for all mobility with use of FWW. She primarily mobilizes at this level in her room and to the bathroom. She needs assist with ADLS. Uses a w/c for all distances in the facility. She sleeps in her bed at night, dozes often in the w/c in the daytime. Pt wears briefs for occ incontinent episodes, otherwise is able to utilize toilet with the one person assist. Pt's visision is very poor. Sonya reports she can easily and quickly become angry. She has a history of opioid with management of same at the [facility] and is easily re issues related to her current medication plan. PT Enrike is updated and he notes pt seems very close now to this baseline. Sonya agrees to come over tomorrow to assess pt for readmit (or she will send one of her nurses) and at this point expects to likely accept pt back when she is deemed stable for d/c. She is aware that [facility] will likely be following for the next 2 days at same ex [id number].
--- NOTE | 2018-08-10 15:00 | PT.IPTN ---
Current Diagnoses Toxic encephalopathy (08/08/18) Physical Therapy Treatment Note M2 PT-IP Current Condition Start: 08/09/18 13:38 Freq: Status: Active Protocol: Document 08/10/18 11:59 [facility] (Rec: 08/10/18 12:06 [facility] [id number]) Physical Therapy Current Condition Current Condition Evaluation Date 08/09/18 Treatment Diagnosis SOB, AMS, impaired mobility Onset Date 08/08/18 M3 PT-IP Subjective Start: 08/09/18 13:38 Freq: Status: Active Protocol: Document 08/10/18 16:05 [facility] (Rec: 08/10/18 16:05 [facility] [id number]) Subjective Physical Therapy Visit Type Type Patient Unavailable Notes pt working with nursing, MD, and family on POLST; will attempt PT tomorrow when able. Frequency of Treatment Frequency Of Treatment Twice a Day Treatment Plan Other Recommendations and Next Treatment prog. gait, overall mobility Focus including bed and sit<->stand Recommendations To Nursing Amount of Assist Needed 1 Person Assist Discharge Recommendations PT Discharge Recommendations Home with 24/7 Assist SNF Rehab Other Discharge Recommendations SNF vs. back to [facility], depending on assistance [facility] can provide (needs 1 assist for transfers and gait)
[2018-08-10] MEDS: CEFTRIAXONE 1 GM/50 ML FROZ.PIGGY IV (16:29)
[2018-08-10] MEDS: hydrOXYzine pamoate 25 MG CAPSULE PO ×2 (16:29→21:30)
--- NOTE | 2018-08-10 17:09 | P.PN_ITS ---
Subjective Date Patient Seen: 08/10/18 Time Patient Seen: 14:05 Interval history: History of present illness Patient was initially admitted with a toxic encephalopathy suspected secondary to medications. Once admitted and I did further workup including a urinalysis with a Salgado catheter patient was noted with a UTI. This was quite prominent on the urinalysis. Culture came back with E coli resistant to multiple antibiotics but sensitive to Rocephin. Rocephin was started on day 1 the patient seems to be responding favorably. Patient also noted with a bradycardia that has persisted during hospital course. Her blood pressures remain reasonably stable regardless of the episodes of the pulse rate lower. Review of systems Patient has been tearful and wanting to . Patient has lost her about a year ago and her mother prior to her and recent as well. I did have a sit-down today with the patient as well as her son and her spirits appear to be encouraged. Will start the Zoloft antidepressant as we discussed in the family meeting. No chest pain or shortness of breath no nausea at this time Exam Vital Signs (past 8 hours): - 08/10/18 09:01 08/10/18 11:30 08/10/18 15:40 Temperature 97.0 F L 97.5 F L Pulse Rate 47 L 54 L Respiratory Rate 16 18 Blood Pressure 102/46 L 119/42 L 115/55 L Pulse Oximetry 100 96 Oxygen Delivery Method Room Air Oxygen Flow Rate 0 Narrative Exam Narrative: General appearance patient is morbidly obese in no apparent distress at rest awake and alert easily tearful Psychiatric well oriented to time place person for somewhat flat affect the patient has been able to smile appropriately Respiratory fairly clear to auscultation no wheezes no crackles good airflow Cardiovascular bradycardic state regular rhythm rate of about 46-50 per minute + 3 pulses to extremities GI fairly benign soft nontender morbid obesity obscures exam no bruits are noted Neurologic no focal neurologic changes cranial nerves 2-12 appear grossly intact Objective Labs Result Diagrams: 08/10/18 05:54 08/10/18 05:54 Labs: Laboratory Results - last 24 hr 08/10/18 08/10/18 05:54 05:54 WBC 7.5 RBC 3.36 L Hgb 10.2 L Hct 29.5 L MCV 87.9 MCH 30.5 MCHC 34.6 RDW 14.1 Plt Count 184 Neut % (Auto) 54.5 Lymph % (Auto) 25.7 [place] % (Auto) 8.2 Eos % (Auto) 10.7 H Baso % (Auto) 0.9 Neut # (Auto) 4100 Sodium 149 H Potassium 4.1 Chloride 111 H Carbon Dioxide 26 BUN 38 H Creatinine 2.60 H Estimated GFR 17.8 L BUN/Creatinine Ratio 14.6 Glucose 109 Calcium 9.3 Total Bilirubin 0.3 AST 17 ALT 23 Alkaline Phosphatase 71 Total Protein 6.0 L Albumin 3.2 L Globulin 2.8 Albumin/Globulin Ratio 1.1 Assessment & Plan Plan: Assessment/Plan Narrative: Septic encephalopathy After patient admitted a urinalysis was obtained was strongly positive for urinary tract infection. Rocephin antibiotic started. Follow up on urine culture and sensitivity notes E coli organism sensitive to Rocephin Patient on methadone and responded to Narcan given in the ER. Patient's level of consciousness has improved remarkably. Patient is well oriented to time place person in a.m. on August 09 As discussed with the patient and her son at bedside code status is DNR Sinus bradycardia Patient continues to demonstrate a low pulse primarily in the 40s. Blood pressures been stable with these lower pulse rates Urine retention On admission patient noted with a bladder of 800 cc with bedside bladder scan Salgado catheter was placed and urinalysis was positive for urinary tract infection. Potential causes of urine retention include the opiate therapy she takes as well as other meds such as baclofen. I stopped the baclofen in a.m. August 10. History of pulmonary embolism on chronic anticoagulant therapy Continue the Xarelto as tolerated. Note patient with elevated BUN and creatinine on admission suggestive of dehydration. Will continue patient's anticoagulant therapy Xarelto now that she is awake and can safely swallow by mouth Pre renal failure Patient with an elevated BUN and creatinine which I suspect is secondary to the elevated glucose levels and poor oral intake. Serum creatinine is improving today in a.m. serum creatinine 2.6 with a serum creatinine of 3.3 on admission Hopefully further improvement in serum creatinine with the diuretic and fluids provided Apparent history of congestive heart failure Note patient on Lasix at 40 mg p.o. b.i.d.. We will obtain a echocardiogram 2D. Lasix 40 mg IV q.12 hours at this time while awaiting a BNP blood test. Requesting AP portable chest x-ray to be done as well. A Salgado catheter to be placed and strict ins and outs to be provided Patient on Lasix at 40 mg p.o. b.i.d. but will given additional Lasix 20 mg IV in a.m. today Diabetes type 2 on chronic long-term insulin Will provide NPH b.i.d. with a sliding scale. Hemoglobin A1c is pending ADA diet to be provided started August 09 Chronic pain syndrome Patient on methadone t.i.d. and Home setting. Understandably so, held the narcotic therapy on admission Will resume patient's usual home analgesic therapy on August 09 and she is swallowing safely and well oriented Stasis dermatitis Patient with prominent erythematous confluent region to both legs distally and ankle feet. These findings consistent with bilateral stasis dermatitis related to her obesity and fluid retention History of stroke No lateralizing neurologic deficits noted on admission today Time Spent With Patient Time with patient: 25 - 35 minutes (30 min) Quality VTE Deep Vein Thrombosis/Pulmonary Embolism Present on Admission: No
[2018-08-10] MEDS: ALBUTEROL HFA 60 PUFF/8 GM INH INH (18:00)
[2018-08-10] MEDS: FLUTICASONE/SALMETEROL 100/50 14 PUFF DISKUS INH (18:05)
[2018-08-10] MEDS: METHADONE 5 MG TABLET PO (18:51)
[2018-08-10] MEDS: ONDANSETRON 4 MG/2 ML INJ IV (21:30)
[2018-08-10] MEDS: LATANOPROST 0.005% OPHTH 2.5 ML 1 DROPS EYE-RIGHT (21:41)
[2018-08-10] MEDS: SERTRALINE 50 MG TABLET PO (22:05)
[2018-08-11] VITALS (10 sets, daily range): BP systolic 109–131; BP diastolic 52–63; PULSE 54–80; RESP 14–20; TEMP 36.1–36.6; O2SAT 94–99
[2018-08-11] MEDS: METHADONE 5 MG TABLET PO ×3 (02:00→18:40)
[2018-08-11] MEDS: SODIUM CHLORIDE 0.45% 1,000 ML 125 ML IV ×3 (02:39→21:24)
[2018-08-11] MEDS: hydrOXYzine pamoate 25 MG CAPSULE PO ×3 (04:08→22:19)
[2018-08-11 06:15] LABS: Add Manual Diff / Slide Review NO; Basophils Percent Auto 0.9 % (0-2); Eosinophils Percent Auto 9.4 % (2-4); Hematocrit 31.6 % (36-46); Hemoglobin 11.1 g/dL (12.0-16.0); Lymphocytes Percent Auto 16.7 % (25-40); Mean Corpuscular HGB Conc 35.2 % (30-36); Mean Corpuscular Hemoglobin 31.1 PG (26-34); Mean Corpuscular Volume 88.2 fL (80-100); Monocytes Percent Auto 6.3 % (3-14); Neutrophils Absolute Auto 5800 /uL (3000-5900); Neutrophils Percent Auto 66.7 % (50-75); Platelet Count 199 X10^3/uL (150-400); Red Blood Cell Count 3.58 X10^6/uL (4.0-5.2); Red Cell Distribution Width 14.2 % (11.6-14.8); White Blood Cell Count 8.7 X10^3/uL (4.5-11.0)
[2018-08-11 06:27] LABS: Alanine Aminotransferase 22 IU/L (9-52); Albumin 3.8 g/dL (3.5-5.0); Albumin Globulin Ratio 1.3 (1.0-2.8); Alkaline Phosphatase 80 U/L (38-126); Aspartate Aminotransferase 20 IU/L (14-36); BUN Creatinine Ratio 13.2 (6-22); Bilirubin Total 0.4 mg/dL (0.2-1.3); Blood Urea Nitrogen 33 mg/dL (7-17); Calcium 9.4 mg/dL (8.4-10.2); Carbon Dioxide 25 mmol/L (22-32); Chloride 105 mmol/L (98-107); Estimated Glomerular Filt Rate 18.7 mL/min (>60); Globulin 2.9 g/dL (1.7-4.1); Glucose 118 mg/dL (80-110); HEMOLYSIS < 15 (0-50); Sodium 143 mmol/L (137-145); Total Protein 6.7 g/dL (6.3-8.2)
[2018-08-11] MEDS: FLUTICASONE/SALMETEROL 100/50 14 PUFF DISKUS INH ×2 (08:38→17:59)
--- NOTE | 2018-08-11 09:31 | OT.IP.TRT ---
Current Diagnoses Toxic encephalopathy (08/08/18) Occupational Therapy Treatment Note M2 OT-IP Current Condition Start: 08/09/18 17:26 Freq: Status: Active Protocol: Document 08/10/18 08:15 [facility] (Rec: 08/10/18 08:55 [facility] [id number]) Occupational Therapy Current Condition Current Condition Evaluation Date 08/10/18 Treatment Diagnosis UTI, weakness, AMS Diagnosis Onset Date 08/09/18 M3 OT- IP Subjective and Pain Start: 08/09/18 17:26 Freq: Status: Active Protocol: Document 08/11/18 09:20 [facility] (Rec: 08/11/18 09:31 [facility] [id number]) OT- Subjective Occupational Therapy Visit Type Type Treatment Note Visit Start Time 09:00 Visit Stop Time 09:15 Total Visit Minutes 15 Occupational Therapy Visit Comments Patient Comments Pt wanting to get up to do grooming. OT Pain Assessment Pain When Pain Assessed At Rest Pain Present Pain Present Denied Pain M4 OT- IP ADL's Start: 08/09/18 17:26 Freq: Status: Active Protocol: Document 08/11/18 09:20 [facility] (Rec: 08/11/18 09:31 [facility] [id number]) OT ADL-Grooming General Evaluation Grooming Ability Minimal Assistance Areas Needing Assistance Retrieving/Set-up of Grooming Items Comments OT Grooming Comments Due to decreased vision pt needing assist to set-up items and SKAG[place]AY assist to be able to initially grab items-cup of water, denture, and wash cloth . OT ADL-Oral Care General Eval Oral Care Ability Independent OT ADL-Dressing Comments OT Dressing Comments Pt states she is able to do her own pericare needs there as has multiple grab bars to use and staff able to assist if needed. M6 OT- IP Functional Cognition Start: 08/09/18 17:26 Freq: Status: Active Protocol: Document 08/11/18 09:20 [facility] (Rec: 08/11/18 09:31 [facility] [id number]) Cognitive Factors Limiting Selfcare Function Cognitive Ability Level of Alertness Alert Patient Orientation Name Place Attention Span Ability Capable of Focused Attention Capable of Sustained Attention Ability to Follow Commands Able to Follow One Step Commands Memory Description Short Term Impaired Safety Awareness Underestimates Need for Assistance Problem Solving Ability Needs Assist to Identify Solutions Cognitive Comments Cognitive Assessment Comments Pt doing better with memory today and remembers what the nurse told her to keep her arm straight for the IV, pt able to recall PLOF better, and she feels that she is recoverying . VC for safety to keep FWW in front of her for grooming needs, and vc to back up all the way to the recliner bedfore sitting as due to poor vision pt needs to rely on tactile cues. OT- Vision and Hearing OT- Vision Assessment Vision History Blurred Vision Blindness M7 OT- IP Mobility and Balance Start: 08/09/18 17:26 Freq: Status: Active Protocol: Document 08/11/18 09:20 [facility] (Rec: 08/11/18 09:31 [facility] [id number]) OT-Transfer Assessment Sit to and From Stand Sit to and from Stand Minimal Assistance Moderate Assistance Comments Mobility Comments Pt needing MIN assist to stand and then LOB and needing MODA to stand. Pt's feet sliding out from her. Once upright CGA for balance to walk to the sink with FWW. OT- Balance Assessment Sitting Balance and Reactions Static Sitting Balance Ability Good Dynamic Sitting Balance Ability Fair Standing Balance and Reactions Static Standing Balance Ability Fair Dynamic Standing Balance Ability Poor M8 OT- IP Objective Assessments Start: 08/09/18 17:26 Freq: Status: Active Protocol: Document 08/11/18 09:20 [facility] (Rec: 08/11/18 09:31 [facility] [id number]) OT- Coordination Assessment Comments Coordination Comments Pt due to decreased vision, needs assist for set-up. M9 OT- IP Assessment and Plan Start: 08/09/18 17:26 Freq: Status: Active Protocol: Document 08/11/18 09:20 [facility] (Rec: 08/11/18 09:31 [facility] [id number]) OT Summary Assessment and Plan Summary OT Impairments Range of Motion Strength Balance Functional Cognition Functional Mobility Grooming Dressing Toileting Toilet Transfers Progress Towards Goals Slow Progress due to Activity Tolerance Slow Progress due to Cognition Assessment Summary Pt continues to have decreased balance and needing one person assist for all ADl and functional mobility needs and would benefit from skilled rehab to improve to prior level of MOD I in her room with FWW and toileting. Goals Days to Meet Goals 4 Frequency of Treatment Frequency Of Treatment Once a Day Treatment Plan OT Treatment Plan ADL Training Functional Cognition Training Functional Mobility Patient/Family Education Discharge Planning Other Treatment Recommendations and Next Toileting Treatment Focus Discharge Recommendations OT Discharge Recommendations SNF Rehab Other Discharge Recommendations Pending progress possible back to [facility] with increased assist.
[2018-08-11] MEDS: glipiZIDE 5 MG TABLET 10 MG PO ×2 (10:11→17:00)
[2018-08-11] MEDS: INSULIN NPH 100 UNIT/ML VIAL 10 UNIT SUBCUT ×2 (10:11→17:00)
[2018-08-11] MEDS: LISINOPRIL 20 MG TABLET PO (10:12)
[2018-08-11] MEDS: ATORVASTATIN 20 MG TABLET 40 MG PO (10:12)
[2018-08-11] MEDS: CHOLECALCIFEROL (VITAMIN D3) 1,000 UNIT TABLET 1000 UNIT PO (10:12)
[2018-08-11] MEDS: FUROSEMIDE 40 MG TABLET PO ×2 (10:12→17:00)
[2018-08-11] MEDS: lamoTRIgine 100 MG TABLET 300 MG PO (10:12)
[2018-08-11] MEDS: RIVAROXABAN 10 MG TABLET 15 MG PO (10:12)
[2018-08-11] MEDS: ERYTHROMYCIN OPHTH 1 GM OINT 1 APPLIC EYE-LEFT (10:12)
[2018-08-11] MEDS: ASCORBIC ACID 500 MG TABLET PO (10:12)
[2018-08-11] MEDS: ONDANSETRON 4 MG/2 ML INJ IV (10:22)
--- NOTE | 2018-08-11 10:23 | CM.DPC ---
DCP Cont: Spoke to Silvia, admissions nurse from [facility]. Inquired to her as to when she would be coming over to assess patient for return to [place]. Stated that she would be coming over around 3:30 today. Will inquire also if the facility offers physical/occupational therapy, otherwise, will need to order with home health. Her assessment will determine if patient can go back to her facility, or if she will need higher level of care, SNF placement for rehab. Did update Dr. Chapa during rounds, regarding status. P: DCP to continue to assess and note if patient can be discharged back to [facility], or if she will need skilled, pending assessment from Sonya. Alison Núñez RN/Noc Analyst
--- NOTE | 2018-08-11 10:57 | ST.IPDYTX ---
E [facility] Dysphagia Treatment [facility] [employer] [employer] Dysphagia Treatment Start: 08/09/18 16:07 Freq: Status: Active Protocol: Document 08/11/18 10:43 [facility] (Rec: 08/11/18 10:57 [facility] [id number]) Dysphagia Treatment Session Time Visit Start Time 10:15 Visit Stop Time 10:40 Total Visit Minutes 25 Visit Information Visit Number 2 Setting Assessment Location Acute Care Next Note Type Next Note Type Discharge Summary Patient Information Identification Type Name Subjective Observations Patient sitting in chair in room. Nursing in to administer meds. Per nursing, patient is doing a lot better overall today. Treatment Liquids Trialed Thin Solids Trialed Puree Administration Type Self-Feeding Oral Strategies Upright at 90 degrees Treatment Activities Nursing administered patient's meds. Patient swallowed pills whole all at once (without carrier) without overt difficulty. Mild anterior spillage of thin liquids observed; but no signs of penetration/aspiration observed. Anterior spillage most likely related to large bolus size in an attempt to swallow all pills at once. Patient self-fed pudding and thin liquids via straw with min assist due to vision impairments. She implemented a slow rate and adequate bolus size via straw and spoon. Occasional throat clear observed, but again no overt signs of aspiration. Lower dentures were found in patient 's room and put in place; however, she declined trials for solid textures, stating her preference was for soft, puree foods. We discussed the original reason for referral and patient stated I remember , I took too much water and aspirated, but was able to cough it up. When asked about the frequency of this type of episode, patient reports this is a rare occurrence. She denied any difficulty with swallowing or previous aspiration pneumonia. Assessment Patient Response to Treatment Good Assessment of Improvement Patient's swallow safety has improved with improvements in cognitive status. Mild oral dysphagia is ongoing; however, this is felt to be patient's baseline status. No signs of pharyngeal dysphagia or concern for aspiration. Given her preference for soft, puree foods, she is not a candidate for diet texture upgrades. Diet Recommendations Recommendations Continue Current Diet Liquids Order Thin Diet Order Dysphagia Blenderized Medication Recommendations As Tolerated Additional Dietary Needs Controlled Sips Treatment Plan Placement Recommendation after Discharge Assisted Care Facility Appropriate for Continued Therapy No Therapy Recommendations Discharge as patient is content on current diet of thin liquids and puree textures and has demonstrated adequate swallow safety during PO intake. Dysphagia Goals Monitor swallow safety as related to pt cognitive status . Assess swallow safety for upgraded diet textures if so desired by pt. - d/c goal, patient does not desire to have diet textures upgraded Request pt's family obtain lower denture plate from [facility] if able. - goal met
[2018-08-11] MEDS: INSULIN ASPART 100 UNIT/ML INSULN PEN SUBCUT ×2 (11:58→18:30)
--- NOTE | 2018-08-11 15:02 | PM.PN.1 ---
Subjective Date Patient Seen: 08/11/18 Interval history: Patient has no specific complaint. She is sitting up to a chair Exam Vital Signs (past 8 hours): - 08/11/18 07:25 08/11/18 08:39 08/11/18 08:50 Temperature 97.0 F L Pulse Rate 61 56 L Respiratory Rate 16 14 Blood Pressure 131/58 L Pulse Oximetry 99 97 97 08/11/18 11:35 Temperature 97.7 F Pulse Rate 80 Respiratory Rate 16 Blood Pressure 127/52 L Pulse Oximetry 96 Fraction of Inspired Oxygen 21 Oxygen Delivery Method Room Air Oxygen Flow Rate 0 Narrative Exam Narrative: Pleasant female awake and alert and in no acute distress Lungs: clear to auscultation CV: RRR nl Sl S2 2/6 YVON Abd: soft/ non tender/ non distended Ext: rangel bandages in place Objective Labs Result Diagrams: 08/11/18 06:00 08/11/18 06:00 Labs: Laboratory Results - last 24 hr 08/11/18 08/11/18 06:00 06:00 WBC 8.7 RBC 3.58 L Hgb 11.1 L Hct 31.6 L MCV 88.2 MCH 31.1 MCHC 35.2 RDW 14.2 Plt Count 199 Neut % (Auto) 66.7 Lymph % (Auto) 16.7 L [place] % (Auto) 6.3 Eos % (Auto) 9.4 H Baso % (Auto) 0.9 Neut # (Auto) 5800 Sodium 143 Potassium 4.0 Chloride 105 Carbon Dioxide 25 BUN 33 H Creatinine 2.50 H Estimated GFR 18.7 L BUN/Creatinine Ratio 13.2 Glucose 118 H Calcium 9.4 Total Bilirubin 0.4 AST 20 ALT 22 Alkaline Phosphatase 80 Total Protein 6.7 Albumin 3.8 Globulin 2.9 Albumin/Globulin Ratio 1.3 Assessment & Plan (1) Hyperglycemia: Problem details: Improved Current visit: Yes Status: Acute (2) Acute kidney injury: Problem details: Still with significant renal failure, will continue IV hydration Current visit: Yes Status: Acute (3) Acute alteration in mental status: Problem details: Improved Current visit: Yes Status: Acute Plan: Assessment/Plan Narrative: Will need to assess whether patient can return to her assisted living facility Quality VTE Deep Vein Thrombosis/Pulmonary Embolism Present on Admission: No
[2018-08-11] MEDS: CEFTRIAXONE 1 GM/50 ML FROZ.PIGGY IV (17:00)
--- NOTE | 2018-08-11 17:01 | PT.IPTN ---
Current Diagnoses Toxic encephalopathy (08/08/18) Acute kidney failure, unspecified (08/08/18) Altered mental status, unspecified (08/08/18) Hyperglycemia, unspecified (08/08/18) Physical Therapy Treatment Note M2 PT-IP Current Condition Start: 08/09/18 13:38 Freq: Status: Active Protocol: Document 08/10/18 11:59 [facility] (Rec: 08/10/18 12:06 [facility] [id number]) Physical Therapy Current Condition Current Condition Evaluation Date 08/09/18 Treatment Diagnosis SOB, AMS, impaired mobility Onset Date 08/08/18 M3 PT-IP Subjective Start: 08/09/18 13:38 Freq: Status: Active Protocol: Document 08/11/18 16:15 [facility] (Rec: 08/11/18 17:00 [facility] [id number]) Subjective Physical Therapy Visit Type Type Treatment Note Visit Start Time 16:15 Visit Stop Time 16:35 Total Visit Minutes 20 Number of POTATO LOADER Visits 1 Physical Therapy Visit Comments Patient Comments Pt agreeable to do therapy. Therapy Pain Assessment Pain Present Pain Present Pain Reported M4 PT-IP Mobility and Gait Start: 08/09/18 13:38 Freq: Status: Active Protocol: Document 08/11/18 16:15 [facility] (Rec: 08/11/18 17:00 [facility] [id number]) PT-Bed Mobility Assessment Supine to Sit Supine to Sit Standby Assistance Bedrails Scooting Scooting Up and Down in Bed Standby Assistance PT-Transfer Assessment Sit to and From Stand Sit to and from Stand Contact Guard Assistance 1 Person Assistance Use of Upper Extremities Equipment Transfer Assistive Device Gait Belt Front Wheeled Walker Transfers Transfer Destination Chair Transfer Ability Level of Assist Contact Guard Assistance Comments Mobility Comments Pt improving with bed mobility and transfers. Gait Assessment Gait Gait Assistance Required: Contact Guard Assist Distance (Feet) 100 Assistive Devices Assistive Device Gait Belt Front Wheeled Walker Gait Deviations General Gait Pattern Decreased Stride Length Decreased Feet Clearance Flexed Trunk Factors Limiting Gait Function Factors Limiting Gait Function Decreased Activity Tolerance Decreased Strength Poor Balance Comments Gait Comments Pt able to ambulate ~100ft CGA with cues for posture. M5 PT-IP Objective Assessments Start: 08/09/18 13:38 Freq: Status: Active Protocol: Document 08/09/18 13:00 [facility] (Rec: 08/09/18 13:49 [facility] [id number]) Orientation Orientation/Cognition Level of Alertness Lethargic Gross Range of Motion Upper Extremity ROM Impairments B shoulder flexion to 90 degrees, not willing to lift higher Strength Comments Strength Comments pt unable to be formally tested with MMT due to cognitive status M6 PT-IP Treatment Start: 08/09/18 13:38 Freq: Status: Active Protocol: Document 08/09/18 13:00 [facility] (Rec: 08/09/18 13:49 [facility] [id number]) Physical Therapy Treatment Education Education Provided Safety M7 PT-IP Assessment and Plan Start: 08/09/18 13:38 Freq: Status: Active Protocol: Document 08/11/18 16:15 [facility] (Rec: 08/11/18 17:00 [facility] [id number]) PT Summary Assessment and Plan Summary Impairments Pain ROM Strength Balance Cognition Bed Mobility Transfers Gait Activity Tolerance Assessment Summary Pt improving with all mobility . Pt needs cues for posture with ambulation and used bed rail to assist to EOB. Goals Bed Mobility Goal Standby Assistance Transfer Goal Standby Assistance Gait Goal Standby Assistance Front Wheel Walker Gait Distance 25 Days to Meet Goals 2 Frequency of Treatment Frequency Of Treatment Twice a Day Treatment Plan Physical Therapy Treatment Plan Bed Mobility Training Transfer Training Gait Training Therapeutic Exercise Other Recommendations and Next Treatment prog. gait, overall mobility Focus including bed and sit<->stand Discharge Recommendations PT Discharge Recommendations Home with 24/ Assist SNF Rehab Other Discharge Recommendations SNF vs. back to [facility], depending on assistance [facility] can provide (needs 1 assist for transfers and gait)
[2018-08-11] MEDS: SERTRALINE 50 MG TABLET PO (20:34)
[2018-08-11] MEDS: LATANOPROST 0.005% OPHTH 2.5 ML 1 DROPS EYE-RIGHT (20:35)
[2018-08-12 00:01] VITALS: BP 108/53; PULSE 54; RESP 16; TEMP 36.9; O2SAT 94
[2018-08-12] MEDS: METHADONE 5 MG TABLET PO ×2 (01:49→09:34)
[2018-08-12 04:14] VITALS: BP 115/54; PULSE 62; RESP 18; TEMP 36.4; O2SAT 95
[2018-08-12] MEDS: SODIUM CHLORIDE 0.45% 1,000 ML 125 ML IV (05:50)
[2018-08-12 07:00] VITALS: O2SAT 96
[2018-08-12 07:45] VITALS: BP 116/62; PULSE 72; RESP 16; TEMP 36.6; O2SAT 96
[2018-08-12] MEDS: FUROSEMIDE 40 MG TABLET PO (08:06)
[2018-08-12] MEDS: glipiZIDE 5 MG TABLET 10 MG PO (08:08)
[2018-08-12] MEDS: INSULIN NPH 100 UNIT/ML VIAL 10 UNIT SUBCUT (08:10)
[2018-08-12] MEDS: FLUTICASONE/SALMETEROL 100/50 14 PUFF DISKUS INH (08:17)
--- NOTE | 2018-08-12 09:24 | CM.DPC ---
Addendum entered by Alison Núñez R.N. 08/12/18 11:37: Gave Yoselynалександр at [facility] update on mobility status. DC orders received. Called her back and asked for a tile picker time, will tile picker patient at approximately 1:30. Let nurse know. Original Note: DCP Cont: Spoke to Sonya from [facility], for she had evaluated patient to note if they would accept her. Stated that they would accept her as long as no IV antibiotics. P: DCP to assess, and will discuss during rounds today. Alison Núñez RN
[2018-08-12] MEDS: lamoTRIgine 100 MG TABLET 300 MG PO (09:39)
[2018-08-12] MEDS: LISINOPRIL 20 MG TABLET PO (09:39)
[2018-08-12] MEDS: CHOLECALCIFEROL (VITAMIN D3) 1,000 UNIT TABLET 1000 UNIT PO (09:41)
[2018-08-12] MEDS: ATORVASTATIN 20 MG TABLET 40 MG PO (09:41)
[2018-08-12] MEDS: ASCORBIC ACID 500 MG TABLET PO (09:41)
[2018-08-12] MEDS: RIVAROXABAN 10 MG TABLET 15 MG PO (09:44)
[2018-08-12] MEDS: ERYTHROMYCIN OPHTH 1 GM OINT 1 APPLIC EYE-LEFT (09:45)
--- NOTE | 2018-08-12 10:11 | PM.DS.1 ---
History of Present Illness Date Patient Seen: 08/12/18 Chief complaint: SOB Narrative: Patient is a 78 years of age female that resides in a local assisted living facility. Patient noted with altered level of consciousness and sent to the emergency room for further eval. Patient was seen by the ER staff and holding orders placed patient up to the floor. A urine tox screen has not been obtained as yet. I requested urine tox screen to be done urgently. Glucose levels are a bit high. I requested hemoglobin A1c to be done.. Patient with elevated BUN and creatinine which may be reflective of glucose out of control and recent poor intake of fluids. Will provide IV fluids. Note patient on Lasix 40 mg twice daily. Will continue with Lasix IV q.12 hours. A BNP is also requested to further evaluate. Will obtain a bedside echo to further evaluate cardiac contractility and integrity of the heart valves. No portable chest x-ray done as yet either. Will obtain an AP portable chest x-ray as tolerated. Salgado to be placed for strict fluid monitoring. At present patient is obtunded and unable to answer questions. I am at present unaware what patient's baseline cognitive function might be. She does have history of a stroke. It is possible patient may have had cognitive decline since the stroke. Patient appears to be moving all 4 limbs equally. No lateralizing motor deficit evident. Discharge Providers Date of admission: 08/08/18 04:33 Primary care physician: Radhames Dasilva MD Consults: 08/09/18 08:32 Consult to Occupational Therapy Evaluate & Treat Comment: Physician Instructions: Evaluate and treat Consult to Physical Therapy Evaluate & Treat Comment: Physician Instructions: Evaluate and Treat 08/09/18 10:34 Consult to Speech Therapy Evaluate & Treat Comment: Physician Instructions: Evaluate and treat Discharge provider: Lady Chapa MD Discharge Date: 08/12/18 Summary Discharge Diagnosis: Metabolic encephalopathy Urinary Tract Infection secondary to Proteus Mirabilis Chronic Diastolic Heart Failure Chronic Renal Failure stage 4 Acute Renal Failure-present on admission Hyperlipidemia Type 2 diabetes mellitus History of Pulmonary Embolus History of CVA Anemia Exam Vital Signs (past 8 hours): - 08/12/18 04:14 08/12/18 07:45 Temperature 97.6 F 97.8 F Pulse Rate 62 72 Respiratory Rate 18 16 Blood Pressure 115/54 L 116/62 Pulse Oximetry 95 96 Fraction of Inspired Oxygen 21 Oxygen Delivery Method Room Air Oxygen Flow Rate 0 Narrative Exam Narrative: Pleasant female resting comfortably and in no acute distress Lungs: Clear to auscultation CV: RRR nl Sl S2 2/6 YVON Abd: Soft/ non tender/ non distended Ext: both legs with Ang wrap in place Psych: pleasant awake, appropriate, calm, no hallucinations or delusions Objective Labs Result Diagrams: 08/11/18 06:00 08/11/18 06:00 Discharge Plan Discharge Plan Patient Disposition: Assisted Living Transfer to: [facility] Transportation: [facility] I certify the postop hospital prison care is medically necessary on a continuing basis for any conditions for which he/ she received care during this hospitalization.: Yes The receiving facility has agreed to accept transfer and provide medical treatment.: Yes Discharge Med Rec/Prescriptions Prescriptions: New sertraline [Zoloft] 50 mg Tablet 50 mg PO BEDTIME Qty: 30 RF: 0 cephalexin [Keflex] 250 mg capsule 500 mg PO TID Qty: 15 RF: 0 Continue VITAMIN D (Vitamin D3) 1,000 unit PO QDAY Qty: 0 RF: 0 rivaroxaban [Xarelto] 15 MG tablet 15 mg PO QDAY Qty: 0 RF: 0 lamotrigine [Lamictal] 100 MG tablet 300 mg PO QDAY Qty: 0 RF: 0 fluticasone [Flovent Diskus] 100 MCG blister with device 100 mcg INH BIDP PRN (Reason: asthma) Qty: 0 RF: 0 albuterol sulfate [Proventil HFA] 90 MCG/PUFF HFA aerosol inhaler 2 puff INH Q4HP PRN (Reason: Dyspnea) Qty: 0 RF: 0 docusate sodium 100 MG capsule 100 mg PO QDAYP PRN (Reason: Constipation) Qty: 0 RF: 0 glipizide 5 MG tablet 10 mg PO BIDAC Qty: 0 RF: 0 atorvastatin 40 MG tablet 40 mg PO QDAY Qty: 0 RF: 0 lisinopril 20 MG tablet 20 mg PO QDAY Qty: 30 RF: 0 furosemide [Lasix] 40 mg Tablet 40 mg PO BID RF: 0 ascorbic acid (vitamin C) [Vitamin C] 500 mg Tablet 500 mg PO DAILY RF: 0 fluticasone [Flovent Diskus] 100 mcg/actuation Blister With Device 1 inh INHALATION Q12H RF: 0 hydroxyzine pamoate [Vistaril] 25 mg Capsule 25 mg PO Q6-8H PRN (Reason: Muscle Spasm) RF: 0 insulin aspart U-100 [Novolog Flexpen U-100 Insulin] 100 unit/mL Insulin Pen See Label Instructions .ROUTE .COMPLEX RF: 0 methadone 10 MG tablet 5 mg PO 0200,1000,1800 RF: 0 baclofen 10 mg Tablet 10 mg PO TID RF: 0 latanoprost 0.005 % Drops 1 drp EYE-RIGHT DAILY RF: 0 erythromycin 5 mg/gram (0.5 %) Ointment 0.5 inch EYE-LEFT DAILY RF: 0 Follow up/Referrals: Radhames Dasilva MD [Primary Care Provider] - Discharge Orders: Discharge (Order); Ordered 08/12/18 Ordered By: Lady Chapa Discharge Health Status Multidrug resistant organism: No MDRO Provider Discharge Instructions Diet: Carb-consistent/Diabetic, Low-sodium and Low-cholesterol Liquid consistency: Normal/Thin Food texture: Regular Diet comment: 2 gram sodium/ ADA diet Activity: as tolerated Skin/Wound/Dressing Care Dressing: ang bandages to both lower extremities Other wound treatment: continue current wound care to lower extremities [facility] Reason for rehabilitation: Recovery r/t decondition Rehab type: Physical therapy, Occupational therapy and Speech therapy Visit Report/Discharge Packet Instructions: Two Gram Sodium Diet, Carbohydrate-Counting Diet, DI for Urinary Tract Infection (UTI), How to Prevent Falls, Cephalexin Stand Alone Forms: Congestive Heart Failure Visit Report Forms: Stroke Signs & Symptoms Discharge Data Primary Care Provider: Radhames Dasilva V Attending Provider: Lady Chapa Admit Date/Time: 08/08/18 04:33 Discharges patient from system. Discharge Date/Time: 08/12/18 13:45 Quality VTE Deep Vein Thrombosis/Pulmonary Embolism Present on Admission: No
[2018-08-12 12:00] VITALS: BP 127/68; PULSE 76; RESP 16; TEMP 36.6; O2SAT 93
--- NOTE | 2018-08-12 12:11 | PT.IPTN ---
Current Diagnoses Toxic encephalopathy (08/08/18) Acute kidney failure, unspecified (08/08/18) Altered mental status, unspecified (08/08/18) Hyperglycemia, unspecified (08/08/18) Physical Therapy Treatment Note M2 PT-IP Current Condition Start: 08/09/18 13:38 Freq: Status: Active Protocol: Document 08/10/18 11:59 RCC (Rec: 08/10/18 12:06 RCC [id number]) Physical Therapy Current Condition Current Condition Evaluation Date 08/09/18 Treatment Diagnosis SOB, AMS, impaired mobility Onset Date 08/08/18 M3 PT-IP Subjective Start: 08/09/18 13:38 Freq: Status: Active Protocol: Document 08/12/18 10:55 CLB (Rec: 08/12/18 12:11 CLB [id number]) Subjective Physical Therapy Visit Type Type Treatment Note Visit Start Time 10:55 Visit Stop Time 11:10 Total Visit Minutes 15 Number of POLICE AIDE Visits 2 Physical Therapy Visit Comments Patient Comments Pt agreeable to do therapy. Therapy Pain Assessment Pain Present Pain Present Pain Reported M4 PT-IP Mobility and Gait Start: 08/09/18 13:38 Freq: Status: Active Protocol: Document 08/12/18 10:55 CLB (Rec: 08/12/18 12:11 CLB [id number]) PT-Transfer Assessment Sit to and From Stand Sit to and from Stand Contact Guard Assistance 1 Person Assistance Use of Upper Extremities Equipment Transfer Assistive Device Gait Belt Front Wheeled Walker Transfers Transfer Destination Chair Toilet Transfer Ability Level of Assist Contact Guard Assistance Comments Mobility Comments Left pt with [facility] after toilet transfer then returned to room for ambulation. Gait Assessment Gait Gait Assistance Required: Contact Guard Assist Distance (Feet) 100 Assistive Devices Assistive Device Gait Belt Front Wheeled Walker Gait Deviations General Gait Pattern Decreased Stride Length Decreased Feet Clearance Flexed Trunk Factors Limiting Gait Function Factors Limiting Gait Function Decreased Activity Tolerance Decreased Strength Poor Balance M5 PT-IP Objective Assessments Start: 08/09/18 13:38 Freq: Status: Active Protocol: Document 08/09/18 13:00 RCC (Rec: 08/09/18 13:49 RCC [id number]) Orientation Orientation/Cognition Level of Alertness Lethargic Gross Range of Motion Upper Extremity ROM Impairments B shoulder flexion to 90 degrees, not willing to lift higher Strength Comments Strength Comments pt unable to be formally tested with MMT due to cognitive status M6 PT-IP Treatment Start: 08/09/18 13:38 Freq: Status: Active Protocol: Document 08/09/18 13:00 RCC (Rec: 08/09/18 13:49 RCC [id number]) Physical Therapy Treatment Education Education Provided Safety M7 PT-IP Assessment and Plan Start: 08/09/18 13:38 Freq: Status: Active Protocol: Document 08/12/18 10:55 CLB (Rec: 08/12/18 12:11 CLB [id number]) PT Summary Assessment and Plan Summary Impairments Pain ROM Strength Balance Cognition Bed Mobility Transfers Gait Activity Tolerance Assessment Summary Pt continues to need cues for posture with ambulation and c/ o back pain after ~50ft. Pt improving with sit-stand from chair. Goals Bed Mobility Goal Standby Assistance Transfer Goal Standby Assistance Gait Goal Standby Assistance Front Wheel Walker Gait Distance 25 Days to Meet Goals 2 Frequency of Treatment Frequency Of Treatment Twice a Day Treatment Plan Physical Therapy Treatment Plan Bed Mobility Training Transfer Training Gait Training Therapeutic Exercise Other Recommendations and Next Treatment prog. gait, overall mobility Focus including bed and sit<->stand Recommendations To Nursing Amount of Assist Needed 1 Person Assist Discharge Recommendations PT Discharge Recommendations Home with 24/7 Assist SNF Rehab Other Discharge Recommendations SNF vs. back to [facility], depending on assistance [facility] can provide (needs 1 assist for transfers and gait)
--- NOTE | 2018-08-12 13:23 | PC.NURSE ---
Discharge d/c instructions provided to pt and also called to Yolanda at [facility]. notified she needs to have f/u apt with Dr Dasilva. also aware to call MD with any additional questions or concerns. Pt states she took all belongings with her, left with clothing. POLST form signed by MD and returned to pt. d/c packet given to program manager transportation. PIV removed prior to d.c,
== END 2018-08-12 13:45 | DRG 689 ==
LOC: ED 04:32 → AC 07:53
PROVIDERS: Internal Medicine; Admitting Provider Internal Medicine; Emergency Provider Emergency Medicine; PCP Internal Medicine; Visit Provider Internal Medicine
DX: N39.0 Urinary tract infection, site not specified (principal); G93.41 Metabolic encephalopathy; Z68.41 Body mass index [BMI] 40.0-44.9, adult; N17.9 Acute kidney failure, unspecified; F11.20 Opioid dependence, uncomplicated; I50.32 Chronic diastolic (congestive) heart failure; N18.4 Chronic kidney disease, stage 4 (severe); E11.65 Type 2 diabetes mellitus with hyperglycemia; Z79.4 Long term (current) use of insulin; E66.01 Morbid (severe) obesity due to excess calories; E86.0 Dehydration; G89.29 Other chronic pain; F32.9 Major depressive disorder, single episode, unspecified; Z79.01 Long term (current) use of anticoagulants; Z86.711 Personal history of pulmonary embolism; I87.2 Venous insufficiency (chronic) (peripheral); Z66 Do not resuscitate; R00.1 Bradycardia, unspecified; R33.9 Retention of urine, unspecified; D64.9 Anemia, unspecified
CPT/HCPCS: 36415; 70450; 71045; 73090; 73110; 73130; 80053; 80305; 81001; 82962; 83036; 83690; 83880; 84484; 85025; 85610; 85730; 87077; 87086; 87186; 92526; 92610; 93005; 93306; 94640; 94760; 96361; 96374; 97116; 97162; 97165; 99284; 99285; J1940; J2310; J2405; J7050

== ENCOUNTER 2018-08-13 15:11 | Inpatient (IN) | payer MEDICARE, MEDICAID, SELFPAY ==
[2018-08-08 05:45] VITALS: BMI 42.3
[2018-08-13] VITALS (8 sets, daily range): BP systolic 114–136; BP diastolic 53–98; PULSE 57–91; RESP 15–19; TEMP 36.3–36.8; O2SAT 95–98; BMI 46.3
--- NOTE | 2018-08-13 15:24 | ED.NEUROSD ---
HPI - Neuro Symptoms/Deficit General Chief Complaint: Neuro Symptoms/Deficit Stated Complaint: Hallucinations Time Seen by Provider: 08/13/18 15:20 Source: EMS Mode of arrival: EMS Limitations: altered mental status History of Present Illness HPI Narrative: Patient is a 78-year-old female who is just discharged from the hospital yesterday after a several day visit for what was initially a medication overdose and confusion. She was discharged with a diagnosis of urinary tract infection she was sent home on Keflex. She does return to her living facility yesterday and according to EMS they report that the nursing staff there thought that the patient has been hallucinating which has been worsening over the past several hours. No reports of trauma. Related Data Home Medications Medication Instructions Recorded Confirmed albuterol sulfate [Proventil HFA] 2 puff INH Q4HP PRN #0 09/08/16 08/13/18 fluticasone [Flovent Diskus] 100 mcg INH BIDP PRN #0 09/08/16 08/13/18 lamotrigine [Lamictal] 300 mg PO QDAY #0 09/08/16 08/13/18 rivaroxaban [Xarelto] 15 mg PO QDAY #0 09/08/16 08/13/18 docusate sodium 100 mg PO QDAYP PRN #0 07/10/17 08/13/18 atorvastatin 40 mg PO QPM #0 01/18/18 08/13/18 ascorbic acid (vitamin C) [Vitamin 500 mg PO DAILY 04/01/18 08/13/18 C] furosemide [Lasix] 40 mg PO BID 04/01/18 08/13/18 hydroxyzine pamoate [Vistaril] 25 mg PO Q6-8H PRN 04/01/18 08/13/18 insulin aspart U-100 [Novolog See Label Instructions .ROUTE 04/01/18 08/13/18 Flexpen U-100 Insulin] .COMPLEX baclofen 10 mg PO TID 08/08/18 08/13/18 erythromycin 0.5 inch EYE-LEFT DAILY 08/08/18 08/13/18 latanoprost 1 drp EYE-RIGHT DAILY 08/08/18 08/13/18 Lac-Hydrin Lotion 12% 1 applic TOPICAL BID 08/13/18 08/13/18 cephalexin 500 mg PO [id number] 08/13/18 08/13/18 cholecalciferol (vitamin D3) 1,000 unit PO DAILY 08/13/18 08/13/18 [Vitamin D3] glipizide 10 mg PO BID 08/13/18 08/13/18 lanolin-mineral oil [Eucerin 1 applic TOPICAL BID 08/13/18 08/13/18 Original] methadone 5 mg PO TID 08/13/18 08/13/18 nystatin 1 applic TOPICAL TID 08/13/18 08/13/18 Previous Rx's Medication Instructions Recorded lisinopril 20 mg PO QDAY #30 tab 01/22/18 sertraline [Zoloft] 50 mg PO BEDTIME #30 tab 08/12/18 Allergies Allergy/AdvReac Type Severity Reaction Status Date / Time Iodine and Iodide Containing Allergy Intermediate i get Verified 08/13/18 15:18 Produc spots all [IODINE AND IODIDE over my CONTAINING PRODUC] body Penicillins [PENICILLINS] Allergy Intermediate makes my Verified 08/13/18 15:18 bones and joints ache aspirin [ASPIRIN] Allergy Unknown Verified 08/13/18 15:18 meclizine [MECLIZINE] Allergy Unknown Verified 08/13/18 15:18 codeine [CODEINE] AdvReac Unknown gives me Verified 08/13/18 15:18 bloody nightmares potassium [POTASSIUM] AdvReac Unknown Verified 08/13/18 15:18 Review of Systems Review of Systems unobtainable due to mental condition [facility] Medical History CVA (cerebral vascular accident) (Acute) Cataract (Acute) Chronic pain (Acute) Depression (Acute) Diabetes (Acute) H/O: hysterectomy (Acute) Hypertension (Acute) Lower extremity edema (Acute) Pulmonary embolism (Acute) Surgical History Hx of appendectomy (Acute) Hx of tonsillectomy (Acute) Hx of total knee arthroplasty (Acute) Social History household members: caregiver Smoking Status: Never smoker alcohol intake: former Exam Initial Vital Signs Initial Vital Signs: Vital Signs Temperature 98.2 F 08/13/18 15:18 Pulse Rate 91 H 08/13/18 15:18 Respiratory Rate 15 08/13/18 15:18 Blood Pressure 114/64 08/13/18 15:18 Pulse Oximetry 96 08/13/18 15:18 Const General: cooperative, healthy appearing, comfortable, well developed, well groomed and No acute distress Orientation: alert, awake, oriented to person, oriented to place and not oriented to time [facility] Head: normal to inspection and normocephalic Resp Effort & Inspection: normal respiratory effort Auscultation: clear to auscultation bilaterally Cardio Rate: regular rate Rhythm: regular rhythm Pulses: radial pulses present GI Inspection: non-distended Palpation: soft, No firm and No tender Back/Spine/Pelvis Back: No CVA tenderness Skin Lesions: no lesions Rashes: no rashes Neuro General: alert and awake Speech: speech normal Gait: normal gait Motor: muscle tone normal throughout Sensory Exam: no sensory deficits noted Extrem General: normal to inspection and capillary refill normal Psych Appearance: grossly normal and well kempt Speech and Movement: speech and movement normal Mood: congruent mood Affect: normal affect Attitude: cooperative Thought Content: hallucinations visual Course Orders Ordered: ED Orders 08/13/18 15:33 Urinalysis and Microscopic Stat Urine Culture Stat 08/13/18 15:58 Acetaminophen Stat Ammonia (NH3) Stat Blood Culture Stat Complete Blood Count AUTO DIFF Stat Comprehensive Metabolic Panel Stat Ethanol (ETOH) Stat Lactate (Lactic Acid) Stat Partial Thromboplastin Time Stat Procalcitonin Stat Prothrombin Time INR Stat Salicylate Stat Thyroid Stimulating Hormone Stat 08/13/18 17:46 Education, smoking cessation ONGOING 08/13/18 18:02 Consult to Occupational Therapy Evaluate & Treat Consult to Physical Therapy Evaluate & Treat 08/14/18 05:00 Complete Blood Count AUTO DIFF Routine Comprehensive Metabolic Panel Routine Magnesium Routine Acetaminophen (Tylenol) 650 mg PO Q6HR PRN PRN Reason: As Needed for Fever/Mild Pain Albuterol (Ventolin Hfa) 1 puff INH RTQ6HR PRN PRN Reason: Shortness Of Breath Atorvastatin Calcium (Lipitor) 40 mg PO BEDTIME ROSI Bisacodyl (Dulcolax) 10 mg MS DAILY PRN PRN Reason: Constipation Cephalexin HCl (Keflex) 500 mg PO QID ROSI Dextrose (D50w) 25 gm IV PRN PRN; Protocol PRN Reason: Hypoglycemia Docusate Sodium (Colace) 100 mg PO BID ROSI Fluticasone Propionate (Flovent Hfa) 1 puff INH RTBID [facility] Furosemide (Lasix) 40 mg PO 0800,1700 [facility] Insulin Aspart (Novolog Flexpen) 0 unit SUBCUT ACHS ROSI; Protocol Lamotrigine (Lamictal) 300 mg PO DAILY [facility] Lisinopril (Zestril) 20 mg PO DAILY [facility] Morphine Sulfate (Morphine) 2 mg IV Q2HR PRN PRN Reason: Pain, Moderate (4-6) Ondansetron HCl (Zofran) 4 mg IV Q8HR PRN PRN Reason: Nausea And Vomiting Quetiapine Fumarate (Seroquel) 12.5 mg PO BEDTIME ROSI Rivaroxaban (Xarelto) 15 mg PO BID ROSI Discontinued Medications Erythromycin (Erythromycin Ophth Oint) 1 applic EYE-LEFT NOW ONE Stop: 08/13/18 17:52 Vital Signs - 8 hr 08/13/18 15:18 08/13/18 15:30 08/13/18 16:00 Temperature 98.2 F Pulse Rate 91 H 86 79 Respiratory Rate 15 16 Blood Pressure 114/64 Blood Pressure [Left Arm] 118/58 L 134/98 H Pulse Oximetry 96 08/13/18 16:15 08/13/18 17:00 08/13/18 19:05 Temperature 97.3 F L Pulse Rate 57 L 79 88 Respiratory Rate 18 18 16 Blood Pressure 128/65 Blood Pressure [Left Arm] 136/53 L 135/86 Pulse Oximetry 98 97 98 08/13/18 20:19 Temperature 97.3 F L Pulse Rate 88 Respiratory Rate 16 Blood Pressure 126/65 Blood Pressure [Left Arm] Pulse Oximetry 96 MDM - Neuro Symptoms/Deficit Medical Records Attestation: I reviewed the patient's medical records. Lab Data Attestation: I reviewed the patient's lab results. Result diagrams: 08/13/18 15:58 08/13/18 15:58 Lab Results 08/13/18 08/13/18 08/13/18 Range/Units 15:58 15:58 15:58 WBC 10.7 (4.5-11.0) X10^3/uL RBC 3.96 L (4.0-5.2) X10^6/uL Hgb 12.0 (12.0-16.0) g/dL Hct 35.2 L (36-46) % MCV 88.8 (80-100) fL MCH 30.2 (26-34) PG MCHC 34.0 (30-36) % RDW 14.5 (11.6-14.8) % Plt Count 265 (150-400) X10^3/uL Neut % (Auto) 77.9 H (50-75) % Lymph % (Auto) 10.6 L (25-40) % Caswell % (Auto) 6.3 (3-14) % Eos % (Auto) 4.5 H (2-4) % Baso % (Auto) 0.7 (0-2) % Neut # (Auto) 8300 H (7017-6163) /uL PT 19.8 H (10.1-12.7) SECONDS INR 1.8 H (0.9-1.3) APTT 42 H D (26.4-36.2) SECONDS Sodium 143 (137-145) mmol/L Potassium 4.7 (3.4-5.1) mmol/L Chloride 103 (98-107) mmol/L Carbon Dioxide 25 (22-32) mmol/L BUN 33 H (7-17) mg/dL Creatinine 2.50 H (0.52-1.04) mg/dL Estimated GFR 18.7 L (>60) mL/min BUN/Creatinine Ratio 13.2 (6-22) Glucose 160 H (80-110) mg/dL Lactate (0.7-2.1) mmol/L Calcium 10.4 H (8.4-10.2) mg/dL Total Bilirubin 0.6 (0.2-1.3) mg/dL AST 27 (14-36) IU/L ALT 23 (9-52) IU/L Alkaline Phosphatase 94 (38-126) U/L Ammonia (9-30) umol/L Total Protein 7.8 (6.3-8.2) g/dL Albumin 4.5 (3.5-5.0) g/dL Globulin 3.3 (1.7-4.1) g/dL Albumin/Globulin Ratio 1.4 (1.0-2.8) Procalcitonin (<0.5) ng/mL TSH (0.47-4.68) uIU/mL Salicylates (<20) mg/dL Acetaminophen < 10 L (10-30) ug/mL Ethyl Alcohol < 10 mg/dL 08/13/18 08/13/18 08/13/18 Range/Units 15:58 15:58 15:58 WBC (4.5-11.0) X10^3/uL RBC (4.0-5.2) X10^6/uL Hgb (12.0-16.0) g/dL Hct (36-46) % MCV (80-100) fL MCH (26-34) PG MCHC (30-36) % RDW (11.6-14.8) % Plt Count (150-400) X10^3/uL Neut % (Auto) (50-75) % Lymph % (Auto) (25-40) % Caswell % (Auto) (3-14) % Eos % (Auto) (2-4) % Baso % (Auto) (0-2) % Neut # (Auto) (3046-2068) /uL PT (10.1-12.7) SECONDS INR (0.9-1.3) APTT (26.4-36.2) SECONDS Sodium (137-145) mmol/L Potassium (3.4-5.1) mmol/L Chloride (98-107) mmol/L Carbon Dioxide (22-32) mmol/L BUN (7-17) mg/dL Creatinine (0.52-1.04) mg/dL Estimated GFR (>60) mL/min BUN/Creatinine Ratio (6-22) Glucose (80-110) mg/dL Lactate 1.2 (0.7-2.1) mmol/L Calcium (8.4-10.2) mg/dL Total Bilirubin (0.2-1.3) mg/dL AST (14-36) IU/L ALT (9-52) IU/L Alkaline Phosphatase (38-126) U/L Ammonia 13.0 (9-30) umol/L Total Protein (6.3-8.2) g/dL Albumin (3.5-5.0) g/dL Globulin (1.7-4.1) g/dL Albumin/Globulin Ratio (1.0-2.8) Procalcitonin 0.09 (<0.5) ng/mL TSH (0.47-4.68) uIU/mL Salicylates (<20) mg/dL Acetaminophen (10-30) ug/mL Ethyl Alcohol mg/dL 08/13/18 08/13/18 Range/Units 15:58 15:58 WBC (4.5-11.0) X10^3/uL RBC (4.0-5.2) X10^6/uL Hgb (12.0-16.0) g/dL Hct (36-46) % MCV (80-100) fL MCH (26-34) PG MCHC (30-36) % RDW (11.6-14.8) % Plt Count (150-400) X10^3/uL Neut % (Auto) (50-75) % Lymph % (Auto) (25-40) % Caswell % (Auto) (3-14) % Eos % (Auto) (2-4) % Baso % (Auto) (0-2) % Neut # (Auto) (4435-0161) /uL PT (10.1-12.7) SECONDS INR (0.9-1.3) APTT (26.4-36.2) SECONDS Sodium (137-145) mmol/L Potassium (3.4-5.1) mmol/L Chloride (98-107) mmol/L Carbon Dioxide (22-32) mmol/L BUN (7-17) mg/dL Creatinine (0.52-1.04) mg/dL Estimated GFR (>60) mL/min BUN/Creatinine Ratio (6-22) Glucose (80-110) mg/dL Lactate (0.7-2.1) mmol/L Calcium (8.4-10.2) mg/dL Total Bilirubin (0.2-1.3) mg/dL AST (14-36) IU/L ALT (9-52) IU/L Alkaline Phosphatase (38-126) U/L Ammonia (9-30) umol/L Total Protein (6.3-8.2) g/dL Albumin (3.5-5.0) g/dL Globulin (1.7-4.1) g/dL Albumin/Globulin Ratio (1.0-2.8) Procalcitonin (<0.5) ng/mL TSH 2.71 (0.47-4.68) uIU/mL Salicylates < 1.0 (<20) mg/dL Acetaminophen (10-30) ug/mL Ethyl Alcohol mg/dL MDM Narrative Medical decision making narrative: Patient is no signs of trauma. She was alert and oriented to person and place however thinks that it is 2008. Patient is calm. States she has no complaints. She states that she is here because she has ?blood? on her and that she is covered in ?razor blades ?she is not describing any pain. She is picking at these ?razor blades on her clothes. She lifts up her dress and points to her legs and says ?see there is the blood ?there is no blood in these areas. Unsure as the exact etiology. She denies any suicidal ideation. This could be a medication reaction. I discussed the case with Dr. Chapa who discharged her yesterday. Will admit the patient back to the hospital for continued evaluation and treatment Discharge Plan Departure Patient Disposition: Admitted As Inpatient Clinical Impression: Hallucination, visual Discharge Date/Time: 08/13/18 18:34 Interventions: ED Discharge Assessment Last Done: 08/13/18 18:33 Admit Date/Time: 08/13/18 17:15 Admit Provider: Lady Chapa
--- NOTE | 2018-08-13 16:02 | PC.NURSE ---
pt recently treated for uti, today pt with hallucination, blood on her hands, blood on her legs pt cooperative with care, skin warm dry pink.
[2018-08-13 16:24] LABS: Add Manual Diff / Slide Review NO; Basophils Percent Auto 0.7 % (0-2); Eosinophils Percent Auto 4.5 % (2-4); Hematocrit 35.2 % (36-46); Lymphocytes Percent Auto 10.6 % (25-40); Mean Corpuscular Hemoglobin 30.2 PG (26-34); Mean Corpuscular Volume 88.8 fL (80-100); Monocytes Percent Auto 6.3 % (3-14); Neutrophils Absolute Auto 8300 /uL (3000-5900); Neutrophils Percent Auto 77.9 % (50-75); Platelet Count 265 X10^3/uL (150-400); Red Blood Cell Count 3.96 X10^6/uL (4.0-5.2); Red Cell Distribution Width 14.5 % (11.6-14.8); White Blood Cell Count 10.7 X10^3/uL (4.5-11.0)
[2018-08-13 16:33] LABS: Acetaminophen < 10 ug/mL (10-30); Alanine Aminotransferase 23 IU/L (9-52); Albumin 4.5 g/dL (3.5-5.0); Albumin Globulin Ratio 1.4 (1.0-2.8); Alkaline Phosphatase 94 U/L (38-126); Aspartate Aminotransferase 27 IU/L (14-36); BUN Creatinine Ratio 13.2 (6-22); Bilirubin Total 0.6 mg/dL (0.2-1.3); Blood Urea Nitrogen 33 mg/dL (7-17); Calcium 10.4 mg/dL (8.4-10.2); Carbon Dioxide 25 mmol/L (22-32); Chloride 103 mmol/L (98-107); Estimated Glomerular Filt Rate 18.7 mL/min (>60); Ethanol (ETOH) < 10 mg/dL; Globulin 3.3 g/dL (1.7-4.1); Glucose 160 mg/dL (80-110); HEMOLYSIS 28 (0-50); Potassium 4.7 mmol/L (3.4-5.1); Sodium 143 mmol/L (137-145); Total Protein 7.8 g/dL (6.3-8.2)
[2018-08-13 16:34] LABS: Lactate (Lactic Acid) 1.2 mmol/L (0.7-2.1)
[2018-08-13 16:35] LABS: Salicylate < 1.0 mg/dL (<20)
[2018-08-13 16:56] LABS: Procalcitonin 0.09 ng/mL (<0.5)
[2018-08-13 17:02] LABS: INR 1.8 (0.9-1.3); Prothrombin Time 19.8 SECONDS (10.1-12.7)
[2018-08-13 17:05] LABS: PTT Partial Thromboplastin Tim 42 SECONDS (26.4-36.2)
[2018-08-13 17:22] LABS: Thyroid Stimulating Hormone 2.71 uIU/mL (0.47-4.68)
--- NOTE | 2018-08-13 17:24 | PC.NURSE ---
pt remain awake, sitting and picking at the bedsheet states, look at all this thin razor, its cutting me up skin warm dry pink, cooperative with care.
--- NOTE | 2018-08-13 19:16 | PM.HP.1 ---
History of Present Illness Date Patient Seen: 08/13/18 Chief complaint: Hallucinations Narrative: Patient is a 78-year-old female who was discharged from the hospital 1 day ago after treatment for a urinary tract infection and confusion. The patient was back at her assisted living facility when she was noted to have active visual hallucinations. Patient complained of seeing razor blades and blood coming from her lower extremities. She looked between her legs and identified address that was not there. Current lesions she believes she is in the hospital because of bleeding in her legs. She is oriented to the hospital, the year, the month, and the date. She knows who the president is. She knows the former president. The patient has been treated for a urinary tract infection. In the emergency department she was found to have a normal white count, no fever, normal procalcitonin. The patient does have stage IV renal insufficiency. She is chronically on methadone and baclofen for chronic back pain. She is on multiple other medications as well. I am concerned that her visual hallucinations may be related to medication effect. Patient will be admitted to the hospital for further evaluation of active visual hallucinations. Patient History Medical History CVA (cerebral vascular accident) (Acute) Cataract (Acute) Chronic pain (Acute) Depression (Acute) Diabetes (Acute) H/O: hysterectomy (Acute) Hypertension (Acute) Lower extremity edema (Acute) Pulmonary embolism (Acute) Surgical History Hx of appendectomy (Acute) Hx of tonsillectomy (Acute) Hx of total knee arthroplasty (Acute) Family & Social History Social History: household members caregiver Prior Living Arrangements Assisted Living Safety & Behavioral: Feels Safe in Current Yes Environment Been Physically Hurt or No Threatened By a Person Suicidal Ideation Description None Suicide Plan Description No Plan Tobacco & Substance use: Smoking Status Never smoker alcohol intake former alcohol intake frequency 0-2 drinks per day Substance Use Type does not use Meds Home Medications Medication Instructions Recorded Confirmed Type albuterol sulfate [Proventil HFA] 2 puff INH Q4HP PRN #0 09/08/16 08/13/18 History fluticasone [Flovent Diskus] 100 mcg INH BIDP PRN #0 09/08/16 08/13/18 History lamotrigine [Lamictal] 300 mg PO QDAY #0 09/08/16 08/13/18 History rivaroxaban [Xarelto] 15 mg PO QDAY #0 09/08/16 08/13/18 History docusate sodium 100 mg PO QDAYP PRN #0 07/10/17 08/13/18 History atorvastatin 40 mg PO QPM #0 01/18/18 08/13/18 History lisinopril 20 mg PO QDAY #30 tab 01/22/18 08/13/18 Rx ascorbic acid (vitamin C) [Vitamin 500 mg PO DAILY 04/01/18 08/13/18 History C] furosemide [Lasix] 40 mg PO BID 04/01/18 08/13/18 History hydroxyzine pamoate [Vistaril] 25 mg PO Q6-8H PRN 04/01/18 08/13/18 History insulin aspart U-100 [Novolog See Label Instructions .ROUTE 04/01/18 08/13/18 History Flexpen U-100 Insulin] .COMPLEX baclofen 10 mg PO TID 08/08/18 08/13/18 History erythromycin 0.5 inch EYE-LEFT DAILY 08/08/18 08/13/18 History latanoprost 1 drp EYE-RIGHT DAILY 08/08/18 08/13/18 History sertraline [Zoloft] 50 mg PO BEDTIME #30 tab 08/12/18 08/13/18 Rx Lac-Hydrin Lotion 12% 1 applic TOPICAL BID 08/13/18 08/13/18 History cephalexin 500 mg PO [id number] 08/13/18 08/13/18 History cholecalciferol (vitamin D3) 1,000 unit PO DAILY 08/13/18 08/13/18 History [Vitamin D3] glipizide 10 mg PO BID 08/13/18 08/13/18 History lanolin-mineral oil [Eucerin 1 applic TOPICAL BID 08/13/18 08/13/18 History Original] methadone 5 mg PO TID 08/13/18 08/13/18 History nystatin 1 applic TOPICAL TID 08/13/18 08/13/18 History Allergies Allergy/AdvReac Type Severity Reaction Status Date / Time Iodine and Iodide Containing Allergy Intermediate i get Verified 08/13/18 15:18 Produc spots all [IODINE AND IODIDE over my CONTAINING PRODUC] body Penicillins [PENICILLINS] Allergy Intermediate makes my Verified 08/13/18 15:18 bones and joints ache aspirin [ASPIRIN] Allergy Unknown Verified 08/13/18 15:18 meclizine [MECLIZINE] Allergy Unknown Verified 08/13/18 15:18 codeine [CODEINE] AdvReac Unknown gives me Verified 08/13/18 15:18 bloody nightmares potassium [POTASSIUM] AdvReac Unknown Verified 08/13/18 15:18 Review of Systems Review of Systems All systems reviewed & are unremarkable except as noted in HPI and below Exam Vital Signs (past 8 hours): - 08/13/18 15:18 08/13/18 15:30 08/13/18 16:00 Temperature 98.2 F Pulse Rate 91 H 86 79 Respiratory Rate 15 16 Blood Pressure 114/64 Blood Pressure [Left Arm] 118/58 L 134/98 H Pulse Oximetry 96 08/13/18 16:15 08/13/18 17:00 08/13/18 19:05 Temperature 97.3 F L Pulse Rate 57 L 79 88 Respiratory Rate 18 18 16 Blood Pressure 128/65 Blood Pressure [Left Arm] 136/53 L 135/86 Pulse Oximetry 98 97 98 Oxygen Delivery Method Room Air Narrative Exam Narrative: Pleasant female with active visual hallucinations. 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 Oropharynx: clear Neck supple Lungs; clear to auscultation CV: RRR nl Sl S2 Abd: obese soft/ non tender/ no HSM Ext: 3+edema bilaterally, redness of both legs with ulceration Neuro: MOves all extremities, CN intact-except vision, sensation intact, reflexes equal, gait not assessed Psych: hallucinating Objective Labs Result Diagrams: 08/13/18 15:58 08/13/18 15:58 Labs: Laboratory Results - last 24 hr 08/13/18 08/13/18 08/13/18 15:58 15:58 15:58 WBC 10.7 RBC 3.96 L Hgb 12.0 Hct 35.2 L MCV 88.8 MCH 30.2 MCHC 34.0 RDW 14.5 Plt Count 265 Neut % (Auto) 77.9 H Lymph % (Auto) 10.6 L [place] % (Auto) 6.3 Eos % (Auto) 4.5 H Baso % (Auto) 0.7 Neut # (Auto) 8300 H PT 19.8 H INR 1.8 H APTT 42 H D Sodium 143 Potassium 4.7 Chloride 103 Carbon Dioxide 25 BUN 33 H Creatinine 2.50 H Estimated GFR 18.7 L BUN/Creatinine Ratio 13.2 Glucose 160 H Lactate Calcium 10.4 H Total Bilirubin 0.6 AST 27 ALT 23 Alkaline Phosphatase 94 Ammonia Total Protein 7.8 Albumin 4.5 Globulin 3.3 Albumin/Globulin Ratio 1.4 Procalcitonin TSH Salicylates Acetaminophen < 10 L Ethyl Alcohol < 10 08/13/18 08/13/18 08/13/18 15:58 15:58 15:58 WBC RBC Hgb Hct MCV MCH MCHC RDW Plt Count Neut % (Auto) Lymph % (Auto) [place] % (Auto) Eos % (Auto) Baso % (Auto) Neut # (Auto) PT INR APTT Sodium Potassium Chloride Carbon Dioxide BUN Creatinine Estimated GFR BUN/Creatinine Ratio Glucose Lactate 1.2 Calcium Total Bilirubin AST ALT Alkaline Phosphatase Ammonia 13.0 Total Protein Albumin Globulin Albumin/Globulin Ratio Procalcitonin 0.09 TSH Salicylates Acetaminophen Ethyl Alcohol 08/13/18 08/13/18 15:58 15:58 WBC RBC Hgb Hct MCV MCH MCHC RDW Plt Count Neut % (Auto) Lymph % (Auto) [place] % (Auto) Eos % (Auto) Baso % (Auto) Neut # (Auto) PT INR APTT Sodium Potassium Chloride Carbon Dioxide BUN Creatinine Estimated GFR BUN/Creatinine Ratio Glucose Lactate Calcium Total Bilirubin AST ALT Alkaline Phosphatase Ammonia Total Protein Albumin Globulin Albumin/Globulin Ratio Procalcitonin TSH 2.71 Salicylates < 1.0 Acetaminophen Ethyl Alcohol Assessment & Plan (1) Hallucination, visual: Problem details: Suspect metabolic encephalopathy secondary to medications. Given her renal failure any could be the culprit. Will discontinue Zoloft, Methadone, Baclofen for now Start Seroquel at bedtime Current visit: Yes Status: Acute (2) Acute metabolic encephalopathy: Problem details: As above Current visit: Yes Status: Acute (3) Chronic renal failure, stage 4 (severe): Problem details: continue usual medications Current visit: Yes Status: Acute (4) Venous insufficiency of both lower extremities: Problem details: Continue dressing changes as previously Current visit: Yes Status: Acute (5) Urinary tract infection: Problem details: Continue Keflex for 4 days, recheck urine when antibiotics complete Current visit: Yes Status: Acute
[2018-08-13] MEDS: INSULIN ASPART 100 UNIT/ML INSULN PEN SUBCUT (22:24)
[2018-08-13] MEDS: cephALEXin 250 MG CAPSULE 500 MG PO (22:31)
[2018-08-13] MEDS: QUETIAPINE 25 MG TABLET 12.5 MG PO (22:31)
[2018-08-13] MEDS: RIVAROXABAN 10 MG TABLET 15 MG PO (22:31)
[2018-08-13] MEDS: ATORVASTATIN 20 MG TABLET 40 MG PO (22:35)
[2018-08-13] MEDS: DOCUSATE 100 MG CAPSULE PO (22:35)
[2018-08-13] MEDS: FLUTICASONE 110MCG HFA 120 PUFF INH (22:40)
[2018-08-14] VITALS (10 sets, daily range): BP systolic 104–127; BP diastolic 45–66; PULSE 40–78; RESP 12–20; TEMP 36.2–37.1; O2SAT 95–100
[2018-08-14 03:47] LABS: Appearance Urine UA CLEAR; Bilirubin Urine UA NEGATIVE (NEGATIVE); Color Urine UA YELLOW; Glucose Urine UA NEGATIVE (Normal); Ketones Urine UA NEGATIVE (NEGATIVE); Leukocyte Esterase Urine UA 1+ (NEGATIVE); Nitrite Urine UA Negative (Negative); Occult Blood Urine UA NEGATIVE (Negative); Protein Urine UA NEGATIVE (Negative); Specific Gravity Urine UA <=1.005 (1.000-1.035); Urobilinogen Urine UA 0.2 E.U./dL (0.2)
[2018-08-14 03:49] LABS: Squamous Epithelial Cell Urine 10-30 /HPF
[2018-08-14 03:50] LABS: Bacteria Urine Few (2-10)
--- NOTE | 2018-08-14 03:51 | PC.NURSE ---
0300 Patient has been asleep most of shift but now awakened for assessment and to recheck blood glucose. Is oriented except to date/day of week. Is still having hallucinations; pointed to spot on linen and said she could see blood there, and also saw blood on side rail. Looking at legs/arms and states she sees blood. Stated she had to urinate but when getting up became aggressive and belligerent accusing staff of having an attitude and states is this the way you treat all the elderly?. Expresses anger about being awakened and then told she has to get out of bed (when, in fact, she was the one who wanted to get up to urinate). Very rude/hostile toward staff throughout interaction. Upset that staff would not leave her alone to urinate stating I can't fucking pee with an audience. Informed her that due to high fall risk staff cannot leave her alone. Was able to urinate and urine sent to lab as per ER earlier order. 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 Breath sounds are CTA with RA sat of 99%. HRR with rate in 50's. Denies nausea. BT present and abdomen is soft. Wearing pull up but was continent of urine. Some bruising noted on bilateral UE. Lower legs are wrapped with aces. Did note an intact Allevyn dressing on posterior right thigh and an intact coversite on left anterior lower leg just under rangel wrap. Erythema noted bilateral LE above aces. Denies pain. Fall risk score is considered high and bed alarm is activated.
[2018-08-14 03:52] LABS: Culture Indicated Urine Cult Not Indicated; RBC Urine 0-1/HPF (0-5/HPF); WBC Urine 5-10/HPF (0-5/HPF)
[2018-08-14] MEDS: FLUTICASONE 110MCG HFA 120 PUFF INH (07:12)
[2018-08-14 07:14] LABS: Add Manual Diff / Slide Review NO; Basophils Percent Auto 1.1 % (0-2); Eosinophils Percent Auto 9.2 % (2-4); Hematocrit 30.8 % (36-46); Hemoglobin 10.6 g/dL (12.0-16.0); Lymphocytes Percent Auto 18.2 % (25-40); Mean Corpuscular HGB Conc 34.3 % (30-36); Mean Corpuscular Hemoglobin 30.6 PG (26-34); Mean Corpuscular Volume 89.2 fL (80-100); Monocytes Percent Auto 8.3 % (3-14); Neutrophils Absolute Auto 4700 /uL (3000-5900); Neutrophils Percent Auto 63.2 % (50-75); Platelet Count 201 X10^3/uL (150-400); Red Blood Cell Count 3.46 X10^6/uL (4.0-5.2); Red Cell Distribution Width 14.7 % (11.6-14.8); White Blood Cell Count 7.5 X10^3/uL (4.5-11.0)
[2018-08-14 07:20] LABS: Alanine Aminotransferase 24 IU/L (9-52); Albumin 3.6 g/dL (3.5-5.0); Albumin Globulin Ratio 1.3 (1.0-2.8); Alkaline Phosphatase 71 U/L (38-126); Aspartate Aminotransferase 19 IU/L (14-36); BUN Creatinine Ratio 12.8 (6-22); Bilirubin Total 0.4 mg/dL (0.2-1.3); Blood Urea Nitrogen 32 mg/dL (7-17); Calcium 9.9 mg/dL (8.4-10.2); Carbon Dioxide 28 mmol/L (22-32); Chloride 107 mmol/L (98-107); Estimated Glomerular Filt Rate 18.7 mL/min (>60); Globulin 2.7 g/dL (1.7-4.1); Glucose 133 mg/dL (80-110); HEMOLYSIS < 15 (0-50); Magnesium 2.3 mg/dL (1.6-2.3); Potassium 4.3 mmol/L (3.4-5.1); Sodium 143 mmol/L (137-145); Total Protein 6.3 g/dL (6.3-8.2)
[2018-08-14] MEDS: cephALEXin 250 MG CAPSULE 500 MG PO ×4 (08:39→20:09)
[2018-08-14] MEDS: FUROSEMIDE 40 MG TABLET PO ×2 (08:39→17:18)
[2018-08-14] MEDS: LISINOPRIL 20 MG TABLET PO (08:40)
[2018-08-14] MEDS: DOCUSATE 100 MG CAPSULE PO ×2 (08:40→20:10)
[2018-08-14] MEDS: lamoTRIgine 100 MG TABLET 300 MG PO (08:40)
[2018-08-14] MEDS: SODIUM CHLORIDE 0.9% FLUSH 10 ML IV ×2 (08:43→20:12)
[2018-08-14] MEDS: RIVAROXABAN 10 MG TABLET 15 MG PO ×2 (08:43→20:10)
[2018-08-14] MEDS: INSULIN ASPART 100 UNIT/ML INSULN PEN SUBCUT ×4 (08:46→20:17)
--- NOTE | 2018-08-14 10:09 | PC.NURSE ---
Patient was slightly agitated this morning, reports feeling irritable after being awoken during the night at 3am and having to turn and reposition. Patient responded well to having her needs listened to this morning, and created plan for breakfast and getting up to the chair with assistance this morning. Patient now up with 1-2 assist and use of walker. Patient denies hallucinations, stating she is blind. Legs unwrapped and open areas on left front beltran cleansed and covered with allevyn dressing. Ang wraps replaced to help prevent swelling per patient's request and normal routine. Chair alarm in place and soft touch call light within reach.
--- NOTE | 2018-08-14 11:21 | CM.DANOTE ---
Discharge Planning/Care Management DCP: assement: case received, EMR reviewed, READMIT noted. Met with pt and introduced self and role. Pt is found sitting up in bed, eating breakfast and smiling. Pt today remembers that my feet and all the way up to my thighs were covered in blood and their were cut dewitt everywhere. They saw it was all in my head but it wasn't. Asked her if she could still see these things today and she replied No, but I am blind in my right eye and can hardly see anything with my left. So of course I can't see anything. Pt expresses hope that she can return quickly to the [facility]. Discussed case in team rounds. Dr. Chapa plans to adjust some medications in light of pt's kidney status and will keep her overnight. Have spoken to Sonya/CHAO POLANCOS and encouraged her to come over in the morning for assessment if needed. At this point do anticipate that pt will return to [facility] at d/c but Sonya will be the final say. CM Discharge Assessment Start: 08/14/18 11:14 Freq: Status: Active Protocol: Document 08/14/18 11:14 ITV (Rec: 08/14/18 11:19 ITV [id number]) Discharge Planning Assessment Advance Directives? Yes: polst/living will & health care directive Advance Directives on File Yes History Provided By Patient Medical Record Has Patient been admitted in last 30 Yes days? Comment d/c'd from back to her home /[facility] on 08/12/18. Readmitted on 08/135. Prior Living Arrangements Assisted Living Type of transporation used prior to Relies on Others admit Facility Name Admitted From: [facility] Willing to Return to Facility? Yes Independent with ADL's No Is patient alert and oriented? alert, appears at this point to be basically oriented Comment pt expects to return to her home, [facility]. they know me there and how I like to do things. Transportation Arrangement Facility van? Whiteboard Updated in Patient Room with Yes name and ext. # of History Instructor Review Status In Process Next Review Type Continued Stay Review
--- NOTE | 2018-08-14 11:30 | PT.IIE ---
Current Diagnoses Metabolic encephalopathy (08/13/18) Venous insufficiency (chronic) (peripheral) (08/13/18) Chronic kidney disease, stage 4 (severe) (08/13/18) Urinary tract infection, site not specified (08/13/18) Visual hallucinations (08/13/18) Surgical History (Last Reviewed 08/13/18 @ 20:52 by César Tinoco DO) Hx of appendectomy (Acute) Hx of tonsillectomy (Acute) Hx of total knee arthroplasty (Acute) Medical History (Last Reviewed 08/13/18 @ 20:52 by César Tinoco DO) CVA (cerebral vascular accident) (Acute) Cataract (Acute) Chronic pain (Acute) Depression (Acute) Diabetes (Acute) H/O: hysterectomy (Acute) Hypertension (Acute) Lower extremity edema (Acute) Pulmonary embolism (Acute) Physical Therapy Inpatient Evaluation/Re-Eval M1 PT/OT-IP Prior Functional Status Start: 08/14/18 12:48 Freq: NEEDED Status: Active Protocol: Document 08/14/18 11:30 AB (Rec: 08/14/18 13:00 AB [id number]) Medical Review Prior Functional Status Medical History Reviewed Yes Communication able to make needs known Mobility and Gait pt stated that she is modified independent with bed mobility , transfers and ambulation using 4WW Social History Household Members caregiver Living Arrangements Assisted Living Number of Floors (Floors) One Floor Home Environment Standard Height Toilet Walk in Shower Home Equipment Four Wheel Walker Grab Bars Near Toilet Grab Bars In Shower Employment Status Retired Additional Social History Comment pt lives at [facility]. M2 PT-IP Current Condition Start: 08/14/18 12:48 Freq: NEEDED Status: Active Protocol: Document 08/14/18 11:30 AB (Rec: 08/14/18 13:00 AB [id number]) Physical Therapy Current Condition Current Condition Evaluation Date 08/14/18 Treatment Diagnosis hallucinations; generalized weakness Onset Date 08/13/18 Precautions Other Precautions falls M3 PT-IP Subjective Start: 08/14/18 12:48 Freq: NEEDED Status: Active Protocol: Document 08/14/18 11:30 AB (Rec: 08/14/18 13:00 AB [id number]) Subjective Physical Therapy Visit Type Type Initial Evaluation Visit Start Time 11:30 Visit Stop Time 12:05 Total Visit Minutes 35 Number of [employer] TE[employer]ER Visits 0 Physical Therapy Visit Comments Patient Comments pt agreeable to do PT M4 PT-IP Mobility and Gait Start: 08/14/18 12:48 Freq: NEEDED Status: Active Protocol: Document 08/14/18 11:30 AB (Rec: 08/14/18 13:00 AB [id number]) PT-Bed Mobility Assessment Supine to Sit Supine to Sit Maximum Assistance 2 Person Assistance Sit to Supine Sit to Supine Standby Assistance Scooting Scooting to Edge of Bed Maximum Assistance PT-Transfer Assessment Sit to and From Stand Sit to and from Stand Maximum Assistance 1 Person Assistance Use of Upper Extremities Equipment Transfer Assistive Device Gait Belt 4 Wheeled Walker Orthotic/Prosthetic Devices or Brace: No Transfers Transfer Destination Toilet Transfer Technique pt ambulated to the toilet Transfer Ability Level of Assist Contact Guard Assistance 1 Person Assistance Use of Upper Extremities Comments Mobility Comments pt ambulated tot he toilet using FWW SBA to CGA. pt required max A for sit to stand from the chair and from the toilet and max cues. assessed safety with use of 4WW and pt completed ambulation using 4WW from the toilet to the sink. pt was able to maintain standing by the sink SBA while completing handwashing. pt ambulated towards the bed SBA using 4WW and demonstrated bed mobility. pt agreed to sit up on chair after PT session and transferred to chair from bed using 4WW max A with sit to stand. set pt up on chair. chair alarm on, call light and table set up for lunch. Gait Assessment Gait Gait Assistance Required: Standby Assistance Contact Guard Assist 1 Person Assist Distance (Feet) 20 Able to Maintain Weight Bearing Status Yes During Gait Assistive Devices Assistive Device Gait Belt 4 Wheeled Walker Orthotic/Prosthetic Devices or Brace: No Gait Deviations General Gait Pattern Within Normal Limits Decreased Stride Length Decreased Feet Clearance Factors Limiting Gait Function Factors Limiting Gait Function Decreased Activity Tolerance Decreased Strength Difficulty Following Directions Limited Range of Motion Poor Balance Poor Safety Awareness PT-Balance Assessment Sitting Balance and Reactions Static Sitting Balance Ability Good Dynamic Sitting Balance Ability Good Standing Balance and Reactions Static Standing Balance Ability Fair Dynamic Standing Balance Ability Fair Device Used 4WW M5 PT-IP Objective Assessments Start: 08/14/18 12:48 Freq: NEEDED Status: Active Protocol: Document 08/14/18 11:30 AB (Rec: 08/14/18 13:00 AB [id number]) Orientation Orientation/Cognition Level of Alertness Confusional State Orientation Name Place Situation Safety Awareness Decreased Safety Awareness Memory Description Short Term Impaired Intermediate Impaired Strength Lower Extremity Strength Assessment Bilaterally Impaired Knee 3+/5 M6 PT-IP Treatment Start: 08/14/18 12:48 Freq: NEEDED Status: Active Protocol: Document 08/14/18 11:30 AB (Rec: 08/14/18 13:00 AB [id number]) Physical Therapy Treatment Education Education Provided Safety M7 PT-IP Assessment and Plan Start: 08/14/18 12:48 Freq: NEEDED Status: Active Protocol: Document 08/14/18 11:30 AB (Rec: 08/14/18 13:00 AB [id number]) PT Summary Assessment and Plan Potential Rehabilitation Potential Fair Status of Condition at Evaluation Stable Summary Impairments Pain ROM Strength Balance Coordination Tone Cognition Bed Mobility Transfers Gait Activity Tolerance Assessment Summary pt requiring one person assist with mobility. pt may go back to [facility] if they will be able to provide pt necessary assistance. Goals Bed Mobility Goal Standby Assistance Transfer Goal Standby Assistance Gait Goal Standby Assistance Gait Distance 150 Days to Meet Goals 3 Frequency of Treatment Frequency Of Treatment Once a Day Treatment Plan Physical Therapy Treatment Plan Bed Mobility Training Transfer Training Gait Training Therapeutic Exercise Balance Retraining Discharge Planning Neuromuscular Re-ed Coordination Retraining Manual Therapy Recommendations To Nursing Amount of Assist Needed 1 Person Assist Discharge Recommendations PT Discharge Recommendations Home with 27/05 Assist Other Discharge Recommendations back to [facility] if assistance is available
--- NOTE | 2018-08-14 11:32 | P.PN_ITS ---
Subjective Date Patient Seen: 08/14/18 Interval history: Patient is annoyed as she says she was awaken at 3:00 am. She denies seeing blood, razor blades, or clothing today. 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 By report from nursing no hallucinations since last night. She denies any back pain. She explained that she has bone on bone in her low back which compresses her nerves and does have pain occasionally. Exam Vital Signs (past 8 hours): - 08/14/18 07:15 08/14/18 08:40 08/14/18 08:45 Temperature 97.2 F L Pulse Rate 58 L 78 69 Respiratory Rate 16 12 Blood Pressure 104/66 104/66 Pulse Oximetry 97 98 Fraction of Inspired Oxygen 21 Oxygen Delivery Method Room Air Oxygen Flow Rate 0 Narrative Exam Narrative: Awake and alert in no acute distress, no active hallucinations LUngs: clear to auscultation CV: RRR nl Sl S2 2/6 YVON ABd: obese/ soft/ non tender/ no HSM Ext: bilateral erythema, edema to the calves, bandages on open areas bilaterally PSYCH: no hallucinations Objective Labs Result Diagrams: 08/14/18 06:55 08/14/18 06:55 Labs: Laboratory Results - last 24 hr 08/13/18 08/13/18 08/13/18 15:58 15:58 15:58 WBC 10.7 RBC 3.96 L Hgb 12.0 Hct 35.2 L MCV 88.8 MCH 30.2 MCHC 34.0 RDW 14.5 Plt Count 265 Neut % (Auto) 77.9 H Lymph % (Auto) 10.6 L Rice % (Auto) 6.3 Eos % (Auto) 4.5 H Baso % (Auto) 0.7 Neut # (Auto) 8300 H PT 19.8 H INR 1.8 H APTT 42 H D Sodium 143 Potassium 4.7 Chloride 103 Carbon Dioxide 25 BUN 33 H Creatinine 2.50 H Estimated GFR 18.7 L BUN/Creatinine Ratio 13.2 Glucose 160 H Lactate Calcium 10.4 H Magnesium Total Bilirubin 0.6 AST 27 ALT 23 Alkaline Phosphatase 94 Ammonia Total Protein 7.8 Albumin 4.5 Globulin 3.3 Albumin/Globulin Ratio 1.4 Procalcitonin TSH Urine Color Urine Appearance Urine pH Ur Specific [place] Urine Protein Urine Glucose (UA) Urine Ketones Urine Occult Blood Urine Nitrate Urine Bilirubin Urine Urobilinogen Ur Leukocyte Esterase Urine RBC Urine WBC Ur Squamous Epith Cells Urine Bacteria Urine Yeast Ur Culture Indicated? Micro UA Comment Salicylates Acetaminophen < 10 L Ethyl Alcohol < 10 08/13/18 08/13/18 08/13/18 15:58 15:58 15:58 WBC RBC Hgb Hct MCV MCH MCHC RDW Plt Count Neut % (Auto) Lymph % (Auto) Rice % (Auto) Eos % (Auto) Baso % (Auto) Neut # (Auto) PT INR APTT Sodium Potassium Chloride Carbon Dioxide BUN Creatinine Estimated GFR BUN/Creatinine Ratio Glucose Lactate 1.2 Calcium Magnesium Total Bilirubin AST ALT Alkaline Phosphatase Ammonia 13.0 Total Protein Albumin Globulin Albumin/Globulin Ratio Procalcitonin 0.09 TSH Urine Color Urine Appearance Urine pH Ur Specific [place] Urine Protein Urine Glucose (UA) Urine Ketones Urine Occult Blood Urine Nitrate Urine Bilirubin Urine Urobilinogen Ur Leukocyte Esterase Urine RBC Urine WBC Ur Squamous Epith Cells Urine Bacteria Urine Yeast Ur Culture Indicated? Micro UA Comment Salicylates Acetaminophen Ethyl Alcohol 08/13/18 08/13/18 08/14/18 15:58 15:58 03:15 WBC RBC Hgb Hct MCV MCH MCHC RDW Plt Count Neut % (Auto) Lymph % (Auto) Rice % (Auto) Eos % (Auto) Baso % (Auto) Neut # (Auto) PT INR APTT Sodium Potassium Chloride Carbon Dioxide BUN Creatinine Estimated GFR BUN/Creatinine Ratio Glucose Lactate Calcium Magnesium Total Bilirubin AST ALT Alkaline Phosphatase Ammonia Total Protein Albumin Globulin Albumin/Globulin Ratio Procalcitonin TSH 2.71 Urine Color Yellow Urine Appearance Clear Urine pH 5.0 Ur Specific [place] <=1.005 Urine Protein Negative Urine Glucose (UA) Negative Urine Ketones Negative Urine Occult Blood Negative Urine Nitrate Negative Urine Bilirubin Negative Urine Urobilinogen 0.2 Ur Leukocyte Esterase 1+ H Urine RBC 0-1/hpf Urine WBC 5-10/hpf H Ur Squamous Epith Cells 10-30 /hpf H D Urine Bacteria Few (2-10) H Urine Yeast 0-1/hpf Ur Culture Indicated? Cult not indicated Micro UA Comment Not Reportable Salicylates < 1.0 Acetaminophen Ethyl Alcohol 08/14/18 08/14/18 06:55 06:55 WBC 7.5 RBC 3.46 L Hgb 10.6 L Hct 30.8 L MCV 89.2 MCH 30.6 MCHC 34.3 RDW 14.7 Plt Count 201 Neut % (Auto) 63.2 Lymph % (Auto) 18.2 L Rice % (Auto) 8.3 Eos % (Auto) 9.2 H Baso % (Auto) 1.1 Neut # (Auto) 4700 PT INR APTT Sodium 143 Potassium 4.3 Chloride 107 Carbon Dioxide 28 BUN 32 H Creatinine 2.50 H Estimated GFR 18.7 L BUN/Creatinine Ratio 12.8 Glucose 133 H Lactate Calcium 9.9 Magnesium 2.3 Total Bilirubin 0.4 AST 19 ALT 24 Alkaline Phosphatase 71 Ammonia Total Protein 6.3 Albumin 3.6 Globulin 2.7 Albumin/Globulin Ratio 1.3 Procalcitonin TSH Urine Color Urine Appearance Urine pH Ur Specific [place] Urine Protein Urine Glucose (UA) Urine Ketones Urine Occult Blood Urine Nitrate Urine Bilirubin Urine Urobilinogen Ur Leukocyte Esterase Urine RBC Urine WBC Ur Squamous Epith Cells Urine Bacteria Urine Yeast Ur Culture Indicated? Micro UA Comment Salicylates Acetaminophen Ethyl Alcohol Assessment & Plan (1) Acute metabolic encephalopathy: Problem details: Appears to be improved today. Will not resume methadone/baclofen/Zoloft Continue Seroquel, consider increasing dose if hallucinations recurr Current visit: Yes Status: Acute (2) Hallucination, visual: Problem details: Suspect metabolic encephalopathy secondary to medications. Given her renal failure any could be the culprit. Will discontinue Zoloft, Methadone, Baclofen for now Start Seroquel at bedtime Current visit: Yes Status: Acute (3) Chronic renal failure, stage 4 (severe): Problem details: continue current Lasix dose Current visit: Yes Status: Acute (4) Venous insufficiency of both lower extremities: Problem details: Continue dressing changes as previously Current visit: Yes Status: Acute (5) Urinary tract infection: Problem details: Continue Keflex for 4 days, recheck urine when antibiotics complete Current visit: Yes Status: Acute Plan: Assessment/Plan Narrative: Will contine Xeralto given history of PE's, Continue would care to lower extremities Back to [facility] when no longer hallucinating
--- NOTE | 2018-08-14 13:24 | OT.IP.EVAL ---
Current Diagnoses Metabolic encephalopathy (08/13/18) Venous insufficiency (chronic) (peripheral) (08/13/18) Chronic kidney disease, stage 4 (severe) (08/13/18) Urinary tract infection, site not specified (08/13/18) Visual hallucinations (08/13/18) Past Medical History (Last Reviewed 08/13/18 @ 20:52 by César Tinoco DO) CVA (cerebral vascular accident) (Acute) Cataract (Acute) Chronic pain (Acute) Depression (Acute) Diabetes (Acute) H/O: hysterectomy (Acute) Hypertension (Acute) Lower extremity edema (Acute) Pulmonary embolism (Acute) Surgical History (Last Reviewed 08/13/18 @ 20:52 by César Tinoco DO) Hx of appendectomy (Acute) Hx of tonsillectomy (Acute) Hx of total knee arthroplasty (Acute) Occupational Therapy Inpatient Evaluation/Re-Eval M1 PT/OT-IP Prior Functional Status Start: 08/14/18 12:48 Freq: NEEDED Status: Active Protocol: Document 08/14/18 11:30 AB (Rec: 08/14/18 13:00 AB [id number]) Medical Review Prior Functional Status Medical History Reviewed Yes Communication able to make needs known Mobility and Gait pt stated that she is modified independent with bed mobility , transfers and ambulation using 4WW Social History Household Members caregiver Living Arrangements Assisted Living Number of Floors (Floors) One Floor Home Environment Standard Height Toilet Walk in Shower Home Equipment Four Wheel Walker Grab Bars Near Toilet Grab Bars In Shower Employment Status Retired Additional Social History Comment pt lives at [facility]. M1 PT/OT-IP Prior Functional Status Start: 08/14/18 13:07 Freq: NEEDED Status: Active Protocol: Document 08/14/18 13:07 [facility] (Rec: 08/14/18 13:23 [facility] [id number]) Medical Review Prior Functional Status Medical History Reviewed Yes Communication able to make needs known Mobility and Gait pt stated that she is modified independent with bed mobility , transfers and ambulation using 4WW Activities of Daily Living and IADL's Pt states has assist for bathing and LB dressing if having to change out her brief . Pt states wears gowns and booties. Social History Household Members caregiver Living Arrangements Assisted Living Number of Floors (Floors) One Floor Home Environment Standard Height Toilet Walk in Shower Home Equipment Four Wheel Walker Grab Bars Near Toilet Grab Bars In Shower Employment Status Retired Additional Social History Comment pt lives at [facility]. M2 OT-IP Current Condition Start: 08/14/18 13:07 Freq: Status: Active Protocol: Document 08/14/18 13:07 [facility] (Rec: 08/14/18 13:23 [facility] [id number]) Occupational Therapy Current Condition Current Condition Evaluation Date 08/14/18 Treatment Diagnosis Acute metabolic encephalopathy , generalized muscle weakness Post Operative Precautions Other Precautions falls M3 OT- IP Subjective and Pain Start: 08/14/18 13:07 Freq: Status: Active Protocol: Document 08/14/18 13:07 [facility] (Rec: 08/14/18 13:23 [facility] [id number]) OT- Subjective Occupational Therapy Visit Type Type Initial Evaluation Visit Start Time 11:34 Visit Stop Time 12:04 Total Visit Minutes 30 Occupational Therapy Visit Comments Patient/Caregiver Goals Pt would like to go back to [facility]. OT Pain Assessment Pain When Pain Assessed At Rest Pain Present Pain Present Denied Pain M4 OT- IP ADL's Start: 08/14/18 13:07 Freq: Status: Active Protocol: Document 08/14/18 13:07 [facility] (Rec: 08/14/18 13:23 [facility] [id number]) OT [id number] General Evaluation Areas Needing Assistance Opening Containers Comments OT Self-Feeding Comments Due to pt unable to see out of left eye and decreased vision with right eye, pt needs assist for set-up of tray and orientate pt to tray items. OT ADL-Grooming General Evaluation Grooming Ability Minimal Assistance Areas Needing Assistance Retrieving/Set-up of Grooming Items Comments OT Grooming Comments CGA while standing with 4WW and assist to give pt soap as unable to see well. Objects have to be place in her hands due to being in a new environment. OT ADL-Dressing General Eval Lower Body Dressing Ability Maximum Assistance Comments OT Dressing Comments Assist to michelle brief over her feet and CGA to stand and MODA to pull up brief over her hips. Dependent for socks. OT ADL-Toileting General Evaluation Toileting Ability Standby Assistance Comments OT Toileting Comments Set-up of wipes for pt . Pt able to sit and do her own pericare needs, however would probably need assist for completeness however, pt insists on doing it on her own in private. M6 OT- IP Functional Cognition Start: 08/14/18 13:07 Freq: Status: Active Protocol: Document 08/14/18 13:07 [facility] (Rec: 08/14/18 13:23 [facility] [id number]) Cognitive Factors Limiting Selfcare Function Cognitive Ability Level of Alertness Alert Patient Orientation Name Attention Span Ability Capable of Focused Attention Capable of Sustained Attention Ability to Follow Commands Able to Follow One Step Commands with Increased Time Able to Follow One Step Commands with Repetition Memory Description Short Term Impaired Safety Awareness Underestimates Need for Assistance OT- Vision and Hearing OT- Hearing Assessment OT- Hearing Assessment WFL OT- Vision Assessment Vision History Blurred Vision Blindness M7 OT- IP Mobility and Balance Start: 08/14/18 13:07 Freq: Status: Active Protocol: Document 08/14/18 13:07 [facility] (Rec: 08/14/18 13:23 [facility] [id number]) OT- Bed Mobility Assessment Rolling Type of Rolling Roll to Right Supine to Sit Supine to Sit Assist Maximum Assistance 2 Person Assistance Sit to Supine Sit to Supine Assist Standby Assistance Scooting Scooting to Edge of Bed Maximum Assistance 1 Person Assistance OT-Transfer Assessment Sit to and From Stand Sit to and from Stand Maximum Assistance 1 Person Assistance Transfers Transfer Ability Contact Guard Assistance Technique Transfer Destination Bed Chair Toilet Transfer Technique Stand Step Pivot Devices Transfer Assistive Devices Gait Belt 4 Wheeled Walker OT- Gait Assessment Gait Gait Assistance Required: Contact Guard Assist Assistive Devices Assistive Device Gait Belt 4 Wheeled Walker OT- Balance Assessment Sitting Balance and Reactions Static Sitting Balance Ability Good Dynamic Sitting Balance Ability Fair Standing Balance and Reactions Static Standing Balance Ability Fair M8 OT- IP Objective Assessments Start: 08/14/18 13:07 Freq: Status: Active Protocol: Document 08/14/18 13:07 [facility] (Rec: 08/14/18 13:23 [facility] [id number]) OT Gross Range of Motion Upper Extremity Range of Motion Assessment Within Functional Limits OT Strength Upper Extremity Strength Assessment Within Functional Limits OT- Coordination Assessment Comments Coordination Comments FMS decreased mainly due to unable to see items. M9 OT- IP Assessment and Plan Start: 08/14/18 13:07 Freq: Status: Active Protocol: Document 08/14/18 13:07 [facility] (Rec: 08/14/18 13:23 [facility] [id number]) OT Summary Assessment and Plan Potential Rehabilitation Potential Good Analytic Complexity at Evaluation Low Summary OT Impairments Strength Balance Functional Cognition Functional Mobility Grooming Dressing Toileting Progress Towards Goals Slow Progress due to Medical Issues Slow Progress due to Activity Tolerance Slow Progress due to Cognition Assessment Summary Pt low complexity and main barrier is bed mobility and coming to stand from lower surfaces. At this time pt is requiring one person assist for ADL's and functional mobility. Pending if [facility] able to provide increased assist, recommend home to [facility] versus short skilled rehab. Goals Grooming Goal Standby Assistance Dressing Goal Moderate Assistance Toileting Goal Independent Toilet Transfer Goal Standby Assistance Days to Meet Goals 5 Frequency of Treatment Frequency Of Treatment Once a Day Treatment Plan OT Treatment Plan ADL Training Functional Cognition Training Functional Mobility Patient/Family Education Discharge Planning Discharge Recommendations OT Discharge Recommendations LTAC Other Discharge Recommendations Pending ability for [facility] to provide enough assist, pt may benefit from short skilled rehab to help get back to prior level of MOD I in her room for mobility and toileting needs.
--- NOTE | 2018-08-14 14:26 | PC.NURSE ---
Pt. was a little bit irritable in the begging of the shift but became cooperative throughout the day. Pt. was incontinent of bowel and bladder while in bed and during transfer. Transferred from bed to chair successfully with 1 person. Oriented x 4. Skin under dressings in the lower extremities showed no signs or symptoms of infection. IV site in right hand was intact, patent, and showed no signs of infection. Pt. adhered to medication regimen and had no difficulties. Did not report any pain throughout the shift. Vital signs were within defined normal limits.
[2018-08-14] MEDS: ACETAMINOPHEN 325 MG TABLET 650 MG PO (14:46)
--- NOTE | 2018-08-14 17:13 | PC.NURSE ---
Addendum entered by Elizabeth Purcell R.N. 08/14/18 22:51: Post void residual bladder scan showed 18cc. Original Note: Addendum entered by Elizabeth Purcell R.N. 08/14/18 20:59: Relatively uneventful evening. Dsgs on lower legs intact. HL intact/patent/ Med w/Morphine IV w/good relief. HS CBG = 213, S/S coverage 2u given as per orders. Call light w/in reach, bed alarm on for pt safety. Continue w/plan of care. Original Note: Pt visiting w/osn. Denies discomfort. Lungs diminished T/O SpO2 95% RA. Ang wraps to bilateral lower legs. CMS intact. AC CBG 145, S/S of 1u given. HL RFA intact/patent. Call light w/in taylor, bed alarm on for pt safety.
[2018-08-14] MEDS: ATORVASTATIN 20 MG TABLET 40 MG PO (20:09)
[2018-08-14] MEDS: QUETIAPINE 25 MG TABLET 12.5 MG PO (20:11)
[2018-08-14] MEDS: MORPHINE 2 MG/ML INJ IV (20:16)
[2018-08-15] VITALS (7 sets, daily range): BP systolic 97–132; BP diastolic 48–56; PULSE 54–66; RESP 18–20; TEMP 36.5–37; O2SAT 97–99
--- NOTE | 2018-08-15 01:46 | PC.NURSE ---
Addendum entered by Sabine Lao R.N. 08/15/18 04:55: Complains of 6/10 butt pain; medicated with Morphine. Offered to reposition on side with pillows to reduce pressure but patient declines stating I sleep on my back. Original Note: Patient is alert and oriented except to day of month/day of week. Expressing no signs of hallucinations at this time. Remembers this RN from previous night and began getting verbally belligerent and using profanity every other word when discussing being woke at 3 o'clock last night. When requested she not use the profanity did stop swearing but then became somewhat sarcastic in responses. When RN attempting to explain situation patient kept interrupting stating listen to me or let me finish. Despite her agitation toward this RN she was cooperative with allowing vitals, assessment, brief change and blood glucose check. Breath sounds are CTA with RA sat of 99%. HRR. Denies nausea. BT present and abdomen is soft. Do note groins and perineum are reddened so will apply barrier cream for tonight; patient states she uses Nystatin usually. Is able to turn self in bed. Not out of bed as yet tonight. Ang wraps to bilateral LE with erythemic skin noted above wraps. Allevyn dressing to anterior lateral lower leg is CDI. Reddened area on posterior right thigh noted (had Allevyn dressing on this area last night); nothing is open. Denies pain currently. Fall risk score is high and bed alarm is activated. Due to poor vision patient has soft touch call light.
[2018-08-15] MEDS: MORPHINE 2 MG/ML INJ IV ×2 (04:51→12:18)
[2018-08-15] MEDS: SODIUM CHLORIDE 0.9% FLUSH 10 ML IV ×2 (04:52→09:17)
[2018-08-15] MEDS: FLUTICASONE 110MCG HFA 120 PUFF INH (05:33)
[2018-08-15 06:56] LABS: Add Manual Diff / Slide Review NO; Basophils Percent Auto 1.4 % (0-2); Eosinophils Percent Auto 10.4 % (2-4); Hematocrit 30.3 % (36-46); Hemoglobin 10.4 g/dL (12.0-16.0); Lymphocytes Percent Auto 21.9 % (25-40); Mean Corpuscular HGB Conc 34.2 % (30-36); Mean Corpuscular Hemoglobin 30.5 PG (26-34); Mean Corpuscular Volume 89.2 fL (80-100); Monocytes Percent Auto 7.7 % (3-14); Neutrophils Absolute Auto 4200 /uL (3000-5900); Neutrophils Percent Auto 58.6 % (50-75); Platelet Count 201 X10^3/uL (150-400); Red Blood Cell Count 3.39 X10^6/uL (4.0-5.2); Red Cell Distribution Width 14.7 % (11.6-14.8); White Blood Cell Count 7.1 X10^3/uL (4.5-11.0)
[2018-08-15 07:06] LABS: Alanine Aminotransferase 23 IU/L (9-52); Albumin 3.4 g/dL (3.5-5.0); Albumin Globulin Ratio 1.3 (1.0-2.8); Alkaline Phosphatase 71 U/L (38-126); Aspartate Aminotransferase 17 IU/L (14-36); BUN Creatinine Ratio 12.3 (6-22); Bilirubin Total 0.4 mg/dL (0.2-1.3); Blood Urea Nitrogen 32 mg/dL (7-17); Calcium 9.8 mg/dL (8.4-10.2); Carbon Dioxide 32 mmol/L (22-32); Chloride 106 mmol/L (98-107); Estimated Glomerular Filt Rate 17.8 mL/min (>60); Globulin 2.7 g/dL (1.7-4.1); Glucose 135 mg/dL (80-110); HEMOLYSIS < 15 (0-50); Potassium 4.2 mmol/L (3.4-5.1); Sodium 145 mmol/L (137-145); Total Protein 6.1 g/dL (6.3-8.2)
[2018-08-15] MEDS: INSULIN ASPART 100 UNIT/ML INSULN PEN SUBCUT ×2 (09:15→11:52)
[2018-08-15] MEDS: cephALEXin 250 MG CAPSULE 500 MG PO ×2 (09:16→11:56)
[2018-08-15] MEDS: LISINOPRIL 20 MG TABLET PO (09:16)
[2018-08-15] MEDS: RIVAROXABAN 10 MG TABLET 15 MG PO (09:16)
[2018-08-15] MEDS: DOCUSATE 100 MG CAPSULE PO (09:17)
[2018-08-15] MEDS: lamoTRIgine 100 MG TABLET 300 MG PO (09:17)
[2018-08-15] MEDS: FUROSEMIDE 40 MG TABLET PO (09:17)
[2018-08-15] MEDS: ACETAMINOPHEN 325 MG TABLET 650 MG PO (09:18)
--- NOTE | 2018-08-15 10:30 | PT.IPTN ---
Current Diagnoses Metabolic encephalopathy (08/13/18) Venous insufficiency (chronic) (peripheral) (08/13/18) Chronic kidney disease, stage 4 (severe) (08/13/18) Urinary tract infection, site not specified (08/13/18) Visual hallucinations (08/13/18) Physical Therapy Treatment Note M2 PT-IP Current Condition Start: 08/14/18 12:48 Freq: NEEDED Status: Active Protocol: Document 08/15/18 10:00 LRN (Rec: 08/15/18 12:19 LRN [id number]) Physical Therapy Current Condition Current Condition Evaluation Date 08/14/18 Treatment Diagnosis hallucinations; generalized weakness Onset Date 08/13/18 Precautions Other Precautions falls M3 PT-IP Subjective Start: 08/14/18 12:48 Freq: NEEDED Status: Active Protocol: Document 08/15/18 10:00 LRN (Rec: 08/15/18 12:19 LRN [id number]) Subjective Physical Therapy Visit Type Type Treatment Note Visit Start Time 10:00 Visit Stop Time 10:30 Total Visit Minutes 30 Number of TYPESETTING MACHINE OPERATOR/TENDER Visits 0 Physical Therapy Visit Comments Patient Comments Pt agreeable to get up out of bed if there are 2 people to assist. M4 PT-IP Mobility and Gait Start: 08/14/18 12:48 Freq: NEEDED Status: Active Protocol: Document 08/15/18 10:00 LRN (Rec: 08/15/18 12:19 LRN [id number]) PT-Bed Mobility Assessment Supine to Sit Supine to Sit Moderate Assistance 1 Person Assistance Head of Bed Elevated Sit to Supine Sit to Supine Moderate Assistance 2 Person Assistance Scooting Scooting to Edge of Bed Maximum Assistance PT-Transfer Assessment Sit to and From Stand Sit to and from Stand Maximum Assistance 2 Person Assistance Equipment Transfer Assistive Device Gait Belt Standard Walker Orthotic/Prosthetic Devices or Brace: No Transfer Ability Level of Assist Moderate Assistance 2 Person Assistance Comments Mobility Comments Sit to stand with 2 person assist because pt did not feel comfortable doing it with 1 person assist. Pt needed verbal cuing and insisted on being told step by step what to do before proceeding with transfers and mobility. Once standing pt was able to mobilize with CGA>SBA. Pt did not want to use 4WW because she felt it was too squirrely . Gait Assessment Gait Gait Assistance Required: Contact Guard Assist 1 Person Assist Distance (Feet) 30 Able to Maintain Weight Bearing Status Yes During Gait Assistive Devices Assistive Device Gait Belt Standard Walker Orthotic/Prosthetic Devices or Brace: No Gait Deviations General Gait Pattern Within Normal Limits Decreased Stride Length Decreased Feet Clearance Factors Limiting Gait Function Factors Limiting Gait Function Decreased Activity Tolerance Decreased Strength Difficulty Following Directions Limited Range of Motion Poor Balance Poor Safety Awareness PT-Balance Assessment Sitting Balance and Reactions Static Sitting Balance Ability Good Dynamic Sitting Balance Ability Good Standing Balance and Reactions Static Standing Balance Ability Good Dynamic Standing Balance Ability Fair Device Used 2WW M5 PT-IP Objective Assessments Start: 08/14/18 12:48 Freq: NEEDED Status: Active Protocol: Document 08/14/18 11:30 AB (Rec: 08/14/18 13:00 AB [id number]) Orientation Orientation/Cognition Level of Alertness Confusional State Orientation Name Place Situation Safety Awareness Decreased Safety Awareness Memory Description Short Term Impaired Detention Impaired Strength Lower Extremity Strength Assessment Bilaterally Impaired Knee 3+/5 M6 PT-IP Treatment Start: 08/14/18 12:48 Freq: NEEDED Status: Active Protocol: Document 08/14/18 11:30 AB (Rec: 08/14/18 13:00 AB [id number]) Physical Therapy Treatment Education Education Provided Safety M7 PT-IP Assessment and Plan Start: 08/14/18 12:48 Freq: NEEDED Status: Active Protocol: Document 08/15/18 10:00 LRN (Rec: 08/15/18 12:19 LRN [id number]) PT Summary Assessment and Plan Summary Assessment Summary Pt may go back to [facility] if they will be able to provide pt necessary assistance. Pt feels confident she will be able to manage at [facility] in her shorter bed/chair. Pt appeared stable and safe with gait. She does need assist with getting out of bed and sit to stand. Goals Bed Mobility Goal Standby Assistance Transfer Goal Standby Assistance Gait Goal Standby Assistance Gait Distance 150 Days to Meet Goals 3 Frequency of Treatment Frequency Of Treatment Once a Day Treatment Plan Physical Therapy Treatment Plan Bed Mobility Training Transfer Training Gait Training Therapeutic Exercise Balance Retraining Discharge Planning Neuromuscular Re-ed Coordination Retraining Manual Therapy Recommendations To Nursing Amount of Assist Needed 2 Person Assist Discharge Recommendations PT Discharge Recommendations Home with 24/ Assist Other Discharge Recommendations back to [facility] if assistance is available
--- NOTE | 2018-08-15 10:39 | PC.NURSE ---
Addendum entered by Danielle Browning R.N. 08/15/18 14:34: dc - [facility] personnel arrived, tsf to their wc, given manila folder with instructions, scripts and records, belongings packed in bag. Original Note: Addendum entered by Danielle Browning R.N. 08/15/18 13:59: DC - given morphine 2mg iv for r knee pain at lunch w/ice pack, then after meal, assisted w/fww, gait belt to br w/void, physics department chair dressed in pt nightgown, packed belongings, wearing gold colored cross, lifeline, lower denture in place, iv dc'd. Original Note: AM NOTE - pt awake, oriented, no indication halluc overnight, in this am and req bladder scan, reported 296 and then pt assisted up w/fww, gait belt, ambul to br and voided approx 200ml urine with some incont, pericare performed, mihai rangel wraps le, states pain neck and shoulder, given tylenol with breakfast.
--- NOTE | 2018-08-15 11:26 | PM.DS.1 ---
History of Present Illness Date Patient Seen: 08/15/18 Time Patient Seen: 11:26 Chief complaint: Hallucinations Narrative: PATIENT IS A 78 YEARS OF AGE FEMALE WHO RETURNS TO [facility] WITH ANOTHER BOUT OF CONFUSION WITH HALLUCINATIONS. ON PREVIOUS ADMISSION PATIENT HAD A BLADDER SCAN SHOWING 800 CC OF FLUID AND THE URINALYSIS WAS STRONGLY POSITIVE FOR UTI. PATIENT WAS TREATED FOR URINARY TRACT INFECTION. AFTER SEVERAL DAYS IN THE HOSPITAL HER LEVEL OF CONSCIOUSNESS RESUMED TO NORMAL. NOTED PATIENT RETURN TO THE HOSPITAL WITH ANOTHER EPISODE OF ALTERED LEVEL OF CONSCIOUSNESS. THE BACLOFEN WAS DISCONTINUED ONCE AGAIN. THE METHADONE WAS STOPPED ENTIRELY. PATIENT WAS ON METHADONE AT 5 MG T.I.D.. Discharge Providers Date of admission: 08/13/18 17:15 Primary care physician: Radhames Dasilva MD Consults: 08/13/18 18:02 Consult to Occupational Therapy Evaluate & Treat Comment: Physician Instructions: Evaluate and treat Consult to Physical Therapy Evaluate & Treat Comment: Physician Instructions: Evaluate and Treat Discharge provider: Praveen Rahman MD Discharge Date: 08/15/18 Summary Discharge Diagnosis: Acute Toxic encephalopathy: Hallucinations and confusion noted on admission Patient's methadone and baclofen was stopped during hospital course Seroquel was started during hospital course and should be continued upon discharge Venous insufficiency of both lower extremities: Continue dressing changes as previously provided at the [facility] Urinary tract infection: Continue Keflex upon discharge for an additional 3 days Hospital Course: Patient readmitted for the confusion and hallucinations. On this admission however patient was not quite so obtunded and she was on the prior admission under my care for. In a.m. today patient is well oriented. Patient was seen by the person designated by the [facility] to evaluate before discharge and is okay to discharge. Patient will be continue on the antibiotic Keflex that was started during hospital course and the Seroquel that was started during hospital course. The methadone could be continued but at a lower dose. Consider 5 mg once or twice daily as needed as opposed to the 5 mg t.i.d. she was taking prior to this admission Baclofen was discontinued Note that baclofen as well as the opioids have risk for urine retention which she certainly had on the prior admission Status at Discharge Cognitive/behavioral status at discharge: Well oriented, cooperative no apparent distress no specific complaints at present Functional status at discharge: independent ambulation Time Spent with Patient Greater than 30 minutes (35 min) Exam Vital Signs (past 8 hours): - 08/15/18 05:18 08/15/18 05:33 08/15/18 07:50 Temperature 98.0 F 97.7 F Pulse Rate 54 L 58 L Respiratory Rate 19 20 Blood Pressure 97/49 L 129/55 L Pulse Oximetry 99 97 97 08/15/18 08:00 Temperature Pulse Rate Respiratory Rate Blood Pressure Pulse Oximetry 98 Fraction of Inspired Oxygen 21 Oxygen Delivery Method Room Air Oxygen Flow Rate 0 Narrative Exam Narrative: General appearance patient is awake and alert well oriented Respiratory is clear to auscultation with no wheezes no crackles Cardiovascular is regular rate rhythm no murmurs GI is benign and soft nontender Extremities are warm Neurologic no focal neurologic changes Objective Labs Result Diagrams: 08/15/18 06:30 08/15/18 06:30 Labs: Laboratory Results - last 24 hr 08/15/18 08/15/18 06:30 06:30 WBC 7.1 RBC 3.39 L Hgb 10.4 L Hct 30.3 L MCV 89.2 MCH 30.5 MCHC 34.2 RDW 14.7 Plt Count 201 Neut % (Auto) 58.6 Lymph % (Auto) 21.9 L [place] % (Auto) 7.7 Eos % (Auto) 10.4 H Baso % (Auto) 1.4 Neut # (Auto) 4200 Sodium 145 Potassium 4.2 Chloride 106 Carbon Dioxide 32 BUN 32 H Creatinine 2.60 H Estimated GFR 17.8 L BUN/Creatinine Ratio 12.3 Glucose 135 H Calcium 9.8 Total Bilirubin 0.4 AST 17 ALT 23 Alkaline Phosphatase 71 Total Protein 6.1 L Albumin 3.4 L Globulin 2.7 Albumin/Globulin Ratio 1.3 Discharge Plan Discharge Plan Patient Disposition: Assisted Living Transfer to: [facility] Transportation: [facility] Discharge comment: MAY CHANGE THE METHADONE TO 5 MG ONCE OR TWICE DAILY INSTEAD OF ROUTINELY TID. METHADONE MAY BE ONE OF CAUSES OF URINE RETENTION AND CONFUSION. BEDSIDE BLADDER SCAN IN AM 10 WAS 250 CC. ON LAST ADMISSION THE BLADDER SCAN WAS 800 CC. I certify the postop hospital group home care is medically necessary on a continuing basis for any conditions for which he/ she received care during this hospitalization.: No The receiving facility has agreed to accept transfer and provide medical treatment.: No Discharge Med Rec/Prescriptions Prescriptions: New cephalexin 250 mg Capsule 500 mg PO QID Qty: 12 RF: 0 quetiapine 25 mg Tablet 12.5 mg PO BEDTIME Qty: 30 RF: 0 Continue rivaroxaban [Xarelto] 15 MG tablet 15 mg PO QDAY Qty: 0 RF: 0 lamotrigine [Lamictal] 100 MG tablet 300 mg PO QDAY Qty: 0 RF: 0 fluticasone [Flovent Diskus] 100 MCG blister with device 100 mcg INH BIDP PRN (Reason: asthma) Qty: 0 RF: 0 albuterol sulfate [Proventil HFA] 90 MCG/PUFF HFA aerosol inhaler 2 puff INH Q4HP PRN (Reason: Dyspnea) Qty: 0 RF: 0 docusate sodium 100 MG capsule 100 mg PO QDAYP PRN (Reason: Constipation) Qty: 0 RF: 0 atorvastatin 40 MG tablet 40 mg PO QPM Qty: 0 RF: 0 lisinopril 20 MG tablet 20 mg PO QDAY Qty: 30 RF: 0 furosemide [Lasix] 40 mg Tablet 40 mg PO BID RF: 0 ascorbic acid (vitamin C) [Vitamin C] 500 mg Tablet 500 mg PO DAILY RF: 0 hydroxyzine pamoate [Vistaril] 25 mg Capsule 25 mg PO Q6-8H PRN (Reason: Muscle Spasm) RF: 0 insulin aspart U-100 [Novolog Flexpen U-100 Insulin] 100 unit/mL Insulin Pen See Label Instructions .ROUTE .COMPLEX RF: 0 latanoprost 0.005 % Drops 1 drp EYE-RIGHT DAILY RF: 0 erythromycin 5 mg/gram (0.5 %) Ointment 0.5 inch EYE-LEFT DAILY RF: 0 sertraline [Zoloft] 50 mg Tablet 50 mg PO BEDTIME Qty: 30 RF: 0 glipizide 10 mg Tablet 10 mg PO BID RF: 0 lanolin-mineral oil [Eucerin Original] Lotion 1 applic TOPICAL BID RF: 0 cholecalciferol (vitamin D3) [Vitamin D3] 1,000 unit Tablet 1,000 unit PO DAILY RF: 0 Lac-Hydrin Lotion 12% lotion 1 applic Topical BID RF: 0 cephalexin 250 mg Capsule 500 mg PO [id number] RF: 0 nystatin 100,000 unit/gram Powder 1 applic TOPICAL TID RF: 0 Discontinued baclofen 10 mg Tablet 10 mg PO TID RF: 0 methadone 5 mg Tablet 5 mg PO TID RF: 0 Follow up/Referrals: Radhames Dasilva MD [Primary Care Provider] - Discharge Orders: Discharge (Order); Ordered 08/15/18 Ordered By: Praveen Rahman Provider Discharge Instructions Diet: Diet as Tolerated Liquid consistency: Normal/Thin Discharge Data Primary Care Provider: Radhames Dasilva V Attending Provider: Lady Chapa Admsusan Date/Time: 08/13/18 17:15
--- NOTE | 2018-08-15 12:42 | CM.DPC ---
DCP: continued: Pt now ok'd for return to /[facility]. Have discussed with Sonya and she is comfortable accepting pt today. DC summary and orders are faxed now to and their van will be here at 1430 to pick pt up. Pt says she is pleased to be going home. She confirms that she does see Dr. Dasilva in his clinic...she goes there by van. Sonya is aware that the Methadone has been d/c'd with some recommendations by Dr. Rahman to consider lessening the dosing as he acknowledges that an abrupt d/c of this medication will likely not be tolerated well. Sonya will be following up with the PCP re this. CLAUDIA Santos updated.
== END 2018-08-15 14:35 | DRG 92 ==
LOC: ED 17:14 → AC 17:16
PROVIDERS: Internal Medicine; Admitting Provider Internal Medicine; Emergency Provider Emergency Medicine; PCP Internal Medicine; Visit Provider Internal Medicine
DX: G92 Toxic encephalopathy (principal); N39.0 Urinary tract infection, site not specified; N18.4 Chronic kidney disease, stage 4 (severe); I50.32 Chronic diastolic (congestive) heart failure; Z68.42 Body mass index [BMI] 45.0-49.9, adult; I12.9 Hypertensive chronic kidney disease with stage 1 through stage 4 chronic kidney disease, or unspecified chronic kidney disease; E66.01 Morbid (severe) obesity due to excess calories; G89.29 Other chronic pain; F32.9 Major depressive disorder, single episode, unspecified; I10 Essential (primary) hypertension; I87.2 Venous insufficiency (chronic) (peripheral)
CPT/HCPCS: 36415; 36591; 80053; 80320; 80329; 81001; 82140; 82962; 83605; 83735; 84145; 84443; 85025; 85610; 85730; 87040; 94640; 97161; 97165; 97530; 99283; 99284; 99291; G0480; J2270

== ENCOUNTER → 2018-08-23 12:24 | Outpatient (REF) | payer MEDICARE, MEDICAID, SELFPAY ==
[2018-08-13 18:55] VITALS: BMI 46.3
[2018-08-23 14:11] LABS: Adenovirus F 40/41 Not Detected (Not Detect); Astrovirus Not Detected (Not Detect); Campylobacter Not Detected (Not Detect); Clostridium difficile toxin AB Not Detected (Not Detect); Cryptosporidium Not Detected (Not Detect); Cyclospora cayetanensis Not Detected (Not Detect); Entamoeba histolytica Not Detected (Not Detect); Enteroaggregative E.coli Not Detected (Not Detect); Enteropathogenic E.coli Not Detected (Not Detect); Enterotoxigenic E.coli It/st Not Detected (Not Detect); Giardia lamblia Not Detected (Not Detect); Norovirus GI/GII Not Detected (Not Detect); Plesiomonsa shigelloides Not Detected (Not Detect); Rotavirus A Not Detected (Not Detect); Salmonella Not Detected (Not Detect); Sapovirus Not Detected (Not Detect); Shiga-like toxin-prod E.coli Not Detected (Not Detect); Shigella/Enteroinvasive E.coli Not Detected (Not Detect); Vibrio Not Detected (Not Detect); Vibrio cholerae Not Detected (Not Detect); Yersinia enterocolitica Not Detected (Not Detect)
== END ==
LOC: LAB 12:24
PROVIDERS: PCP Internal Medicine; Visit Provider Nurse Practitioner Family
DX: R19.7 Diarrhea, unspecified (principal)
CPT/HCPCS: 87507

== ENCOUNTER → 2018-08-30 15:56 | Outpatient (REF) | payer MEDICARE, MEDICAID, SELFPAY ==
[2018-08-13 18:55] VITALS: BMI 46.3
[2018-08-30 16:09] LABS: BUN Creatinine Ratio 16.8 (6-22); Blood Urea Nitrogen 32 mg/dL (7-17); Calcium 10.1 mg/dL (8.4-10.2); Carbon Dioxide 21 mmol/L (22-32); Chloride 110 mmol/L (98-107); Estimated Glomerular Filt Rate 25.6 mL/min (>60); Glucose 163 mg/dL (80-110); HEMOLYSIS 49 (0-50); Sodium 142 mmol/L (137-145)
[2018-08-30 16:20] LABS: Potassium 5.5 mmol/L (3.4-5.1)
[2018-08-30 16:21] LABS: Add Manual Diff / Slide Review NO; Basophils Percent Auto 1.1 % (0-2); Eosinophils Percent Auto 5.2 % (2-4); Hematocrit 34.8 % (36-46); Hemoglobin 11.8 g/dL (12.0-16.0); Lymphocytes Percent Auto 19.5 % (25-40); Mean Corpuscular HGB Conc 33.9 % (30-36); Mean Corpuscular Hemoglobin 30.5 PG (26-34); Mean Corpuscular Volume 89.9 fL (80-100); Monocytes Percent Auto 6.1 % (3-14); Neutrophils Absolute Auto 5900 /uL (3000-5900); Neutrophils Percent Auto 68.1 % (50-75); Platelet Count 263 X10^3/uL (150-400); Red Blood Cell Count 3.88 X10^6/uL (4.0-5.2); Red Cell Distribution Width 14.5 % (11.6-14.8); White Blood Cell Count 8.7 X10^3/uL (4.5-11.0)
== END ==
LOC: LAB 15:56
PROVIDERS: PCP Internal Medicine; Visit Provider Nurse Practitioner Family
DX: I12.9 Hypertensive chronic kidney disease with stage 1 through stage 4 chronic kidney disease, or unspecified chronic kidney disease (principal); D64.9 Anemia, unspecified
CPT/HCPCS: 80048; 85025

== ENCOUNTER → 2018-09-04 06:40 | Outpatient (REF) | payer MEDICARE, MEDICAID, SELFPAY ==
[2018-08-13 18:55] VITALS: BMI 46.3
[2018-09-04 08:41] LABS: HEMOLYSIS < 15 (0-50); Potassium 4.7 mmol/L (3.4-5.1)
== END ==
LOC: LAB 06:40
PROVIDERS: PCP Internal Medicine; Visit Provider Internal Medicine
DX: E87.5 Hyperkalemia (principal)
CPT/HCPCS: 36415; 84132

== ENCOUNTER → 2018-09-08 08:14 | Outpatient (REF) | payer MEDICARE, MEDICAID, SELFPAY ==
[2018-08-13 18:55] VITALS: BMI 46.3
== END ==
LOC: LAB 08:14
PROVIDERS: PCP Internal Medicine; Visit Provider Internal Medicine Cardiovascular Disease
DX: E78.6 Lipoprotein deficiency (principal)

== ENCOUNTER → 2018-09-08 08:46 | Outpatient (REF) | payer MEDICARE, MEDICAID, SELFPAY ==
[2018-08-13 18:55] VITALS: BMI 46.3
[2018-09-08 08:51] LABS: Add Manual Diff / Slide Review NO; Hematocrit 35.3 % (36-46); Hemoglobin 12.2 g/dL (12.0-16.0); Lymphocytes Percent Auto 26.1 % (25-40); Mean Corpuscular HGB Conc 34.6 % (30-36); Mean Corpuscular Hemoglobin 30.8 PG (26-34); Monocytes Percent Auto 6.7 % (3-14); Neutrophils Absolute Auto 5400 /uL (3000-5900); Neutrophils Percent Auto 63.2 % (50-75); Platelet Count 239 X10^3/uL (150-400); Red Blood Cell Count 3.96 X10^6/uL (4.0-5.2); Red Cell Distribution Width 14.6 % (11.6-14.8); White Blood Cell Count 8.6 X10^3/uL (4.5-11.0)
[2018-09-08 09:05] LABS: BUN Creatinine Ratio 16.4 (6-22); Blood Urea Nitrogen 41 mg/dL (7-17); Calcium 10.4 mg/dL (8.4-10.2); Carbon Dioxide 23 mmol/L (22-32); Chloride 107 mmol/L (98-107); Cholesterol 130 mg/dL (140-199); Estimated Glomerular Filt Rate 18.7 mL/min (>60); Glucose 145 mg/dL (80-110); HDL Cholesterol 31 mg/dL (40-60); HEMOLYSIS < 15 (0-50); LDL Cholesterol Calculated 40 mg/dL (<100); Potassium 4.7 mmol/L (3.4-5.1); Sodium 146 mmol/L (137-145); Triglycerides 294 mg/dL (35-150)
== END ==
LOC: LAB 08:46
PROVIDERS: PCP Internal Medicine; Visit Provider Internal Medicine Cardiovascular Disease
DX: E78.5 Hyperlipidemia, unspecified (principal); N18.3 Chronic kidney disease, stage 3 (moderate); Z86.711 Personal history of pulmonary embolism; E11.22 Type 2 diabetes mellitus with diabetic chronic kidney disease
CPT/HCPCS: 80048; 80061; 85025

== ENCOUNTER → 2018-09-12 15:33 | Outpatient (CLI) | payer MEDICARE, MEDICAID, SELFPAY ==
[2018-08-13 18:55] VITALS: BMI 46.3
--- NOTE | 2018-09-12 | DI.MRI.S_ITS ---
PROCEDURE: MR LUMBAR SPINE WO CON INDICATIONS: Low back and bilateral leg pain TECHNIQUE: Noncontrast sagittal T1 spin echo and T2 fast echo, sagittal STIR, axial T1 and T2 fast spin echo through the lumbar spine. In cases with scoliosis, additional coronal T2 fast spin echo may be performed. COMPARISON: None. FINDINGS: Image quality: Excellent. Alignment and Curvature: Trace retrolisthesis of L1 on L2. Trace anterolisthesis of L4-L5 and trace retrolisthesis of L5 on S1. Bone Marrow: Scattered small Schmorl's nodes are present although no definite adjacent marrow edema. No acute vertebral body compression fractures. Spinal Cord: Conus medullaris terminates at the L1-L2 level. Visualized cord demonstrates normal signal and size. Paraspinous Soft Tissues: No paravertebral masses. L1-L2: Bilateral facet arthropathy. Minimal central canal narrowing. Ligamentum flavum hypertrophy and minimal dorsal epidural lipomatosis. Moderate narrowing of the left neural foramen. Mild right foraminal narrowing. L2-L3: Minimal broad-based posterior disc bulge bilateral facet arthropathy. No canal stenosis. Mild partial effacement of both lateral recesses, which appear symmetric. Mild right foraminal stenosis. No definite left foraminal stenosis L3-L4: Broad-based posterior disc bulge and bilateral facet arthropathy. Mild canal narrowing. Partial effacement of the both lateral recesses although right greater than left. Mild left foraminal narrowing. Moderate right foraminal stenosis. L4-L5: Broad-based posterior disc bulge and bilateral facet arthropathy. Mild to moderate canal stenosis. Mild partial effacement of both lateral recesses. No foraminal stenosis. L5-S1: No definite canal stenosis. Bilateral facet arthropathy. Lateral recesses appear patent. Moderate left and [id number] right foraminal stenoses. IMPRESSION: No high-grade canal stenosis. Moderate left L1-L2 foraminal narrowing. Moderate right L3-L4 foraminal stenosis. Moderate to severe, right greater than left, L5-S1 foraminal narrowing. Asymmetric right greater than left L3-L4 subarticular narrowing. Dictated by: Tra Galeana M.D. on 09/12/2018 at 16:46 Approved by: Tra Galeana M.D. on 09/12/2018 at 16:59
== END ==
PROVIDERS: PCP Internal Medicine; Visit Provider Internal Medicine
DX: M54.5 Low back pain (principal); M79.605 Pain in left leg; M79.604 Pain in right leg; M48.07 Spinal stenosis, lumbosacral region; M48.061 Spinal stenosis, lumbar region without neurogenic claudication
CPT/HCPCS: 72148

== ENCOUNTER → 2018-09-18 07:19 | Outpatient (REF) | payer MEDICARE, MEDICAID, SELFPAY ==
[2018-08-13 18:55] VITALS: BMI 46.3
[2018-09-18 08:33] LABS: BUN Creatinine Ratio 18.9 (6-22); Blood Urea Nitrogen 51 mg/dL (7-17); Calcium 10.2 mg/dL (8.4-10.2); Carbon Dioxide 29 mmol/L (22-32); Chloride 105 mmol/L (98-107); Estimated Glomerular Filt Rate 17.1 mL/min (>60); Glucose 175 mg/dL (80-110); HEMOLYSIS < 15 (0-50); Potassium 4.8 mmol/L (3.4-5.1); Sodium 145 mmol/L (137-145)
== END ==
LOC: LAB 07:19
PROVIDERS: PCP Internal Medicine; Visit Provider Nurse Practitioner Family
DX: N18.9 Chronic kidney disease, unspecified (principal)
CPT/HCPCS: 36415; 80048

== ENCOUNTER → 2018-10-27 19:20 | Outpatient (REF) | payer MEDICARE, MEDICAID, SELFPAY ==
[2018-08-13 18:55] VITALS: BMI 46.3
[2018-10-27 19:27] LABS: Add Manual Diff / Slide Review NO; Basophils Percent Auto 0.8 % (0-2); Eosinophils Percent Auto 3.5 % (2-4); Hematocrit 30.9 % (36-46); Hemoglobin 10.6 g/dL (12.0-16.0); Lymphocytes Percent Auto 19.1 % (25-40); Mean Corpuscular HGB Conc 34.4 % (30-36); Mean Corpuscular Hemoglobin 30.6 PG (26-34); Monocytes Percent Auto 5.9 % (3-14); Neutrophils Absolute Auto 5400 /uL (1500-7000); Neutrophils Percent Auto 70.7 % (50-75); Platelet Count 237 X10^3/uL (150-400); Red Blood Cell Count 3.47 X10^6/uL (4.0-5.2); Red Cell Distribution Width 13.2 % (11.6-14.8); White Blood Cell Count 7.6 X10^3/uL (4.5-11.0)
[2018-10-27 19:59] LABS: BUN Creatinine Ratio 18.8 (6-22); Blood Urea Nitrogen 47 mg/dL (7-17); Carbon Dioxide 27 mmol/L (22-32); Chloride 103 mmol/L (98-107); Estimated Glomerular Filt Rate 18.7 mL/min (>60); Glucose 286 mg/dL (80-110); HEMOLYSIS < 15 (0-50); Potassium 4.8 mmol/L (3.4-5.1); Sodium 143 mmol/L (137-145)
== END ==
LOC: LAB 19:20
PROVIDERS: PCP Internal Medicine; Visit Provider Internal Medicine
DX: E11.65 Type 2 diabetes mellitus with hyperglycemia (principal)
CPT/HCPCS: 80048; 85025

== ENCOUNTER → 2018-10-30 07:20 | Outpatient (REF) | payer MEDICARE, MEDICAID, SELFPAY ==
[2018-08-13 18:55] VITALS: BMI 46.3
[2018-10-30 08:28] LABS: BUN Creatinine Ratio 16.2 (6-22); Blood Urea Nitrogen 42 mg/dL (7-17); Calcium 9.9 mg/dL (8.4-10.2); Carbon Dioxide 28 mmol/L (22-32); Chloride 103 mmol/L (98-107); Estimated Glomerular Filt Rate 17.8 mL/min (>60); Glucose 249 mg/dL (80-110); HEMOLYSIS < 15 (0-50); Potassium 4.7 mmol/L (3.4-5.1); Sodium 141 mmol/L (137-145)
[2018-10-30 19:10] LABS: Appearance Urine UA SL CLOUDY; Bilirubin Urine UA NEGATIVE (NEGATIVE); Color Urine UA YELLOW; Glucose Urine UA NEGATIVE (Negative); Ketones Urine UA NEGATIVE (NEGATIVE); Leukocyte Esterase Urine UA 1+ (NEGATIVE); Nitrite Urine UA NEGATIVE (Negative); Occult Blood Urine UA TRACE-LYSED (Negative); Protein Urine UA NEGATIVE (Negative); Urobilinogen Urine UA 0.2 E.U./dL (0.2)
[2018-10-30 19:16] LABS: Amorphous Sediment Urine 1+; Bacteria Urine Few (2-10); RBC Urine 0-1/HPF (0-5/HPF); Squamous Epithelial Cell Urine 1-5 /HPF; WBC Urine 30-100/HPF (0-5/HPF)
[2018-10-30 19:17] LABS: Culture Indicated Urine Specimen Cultured; Mucus Urine 1+ (Negative)
== END ==
LOC: LAB 07:20
PROVIDERS: PCP Internal Medicine; Visit Provider Nurse Practitioner Family
DX: N18.9 Chronic kidney disease, unspecified (principal)
CPT/HCPCS: 36415; 80048; 81001; 87086

== ENCOUNTER → 2018-11-06 17:17 | Outpatient (REF) | payer MEDICARE, MEDICAID, SELFPAY ==
[2018-08-13 18:55] VITALS: BMI 46.3
[2018-11-06 18:12] LABS: BUN Creatinine Ratio 17.5 (6-22); Blood Urea Nitrogen 35 mg/dL (7-17); Calcium 10.3 mg/dL (8.4-10.2); Carbon Dioxide 26 mmol/L (22-32); Chloride 102 mmol/L (98-107); Estimated Glomerular Filt Rate 24.2 mL/min (>60); Glucose 169 mg/dL (80-110); HEMOLYSIS < 15 (0-50); Potassium 4.7 mmol/L (3.4-5.1); Sodium 140 mmol/L (137-145)
== END ==
LOC: LAB 17:17
PROVIDERS: PCP Internal Medicine; Visit Provider Internal Medicine
DX: N18.9 Chronic kidney disease, unspecified (principal)
CPT/HCPCS: 80048

== ENCOUNTER → 2018-11-28 10:31 | Outpatient (CLI) | payer MEDICARE, MEDICAID, SELFPAY ==
[2018-08-13 18:55] VITALS: BMI 46.3
--- NOTE | 2018-11-28 | DI.US.S_ITS ---
PROCEDURE: US PERIPH VENOUS LOW EXTREM RT INDICATIONS: SWELLING/EDEMA LOWER EXTREMITY TECHNIQUE: Real-time imaging, as well as color and pulse Doppler interrogation, were performed of the lower extremity deep veins from the inguinal ligament to the popliteal fossa. COMPARISON: None. 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 Within these limits, no deep veins and free of intraluminal thrombus. Unable to compress the mid and distal superficial femoral or popliteal veins which may be technically related Color and pulse Doppler demonstrate normal phasic intraluminal flow. There is normal augmentation response to distal compression maneuver. Moderate edema. IMPRESSION: 1. Limited exam demonstrating no definitive deep venous thrombosis identified within the right lower extremity. Dictated by: Eliceo Nunez [facility] Interpreted: Ramses Araujo MD on 11/28/2018 at 11:38 Approved by: Ramses Araujo M.D. on 11/28/2018 at 12:21
== END ==
PROVIDERS: PCP Internal Medicine; Visit Provider Nurse Practitioner Family
DX: R60.0 Localized edema (principal)
CPT/HCPCS: 93971

== ENCOUNTER → 2018-12-16 10:31 | Outpatient (REF) | payer MEDICARE, MEDICAID, SELFPAY ==
[2018-08-13 18:55] VITALS: BMI 46.3
[2018-12-16 11:31] LABS: BUN Creatinine Ratio 10.6 (6-22); Blood Urea Nitrogen 19 mg/dL (7-17); Calcium 9.5 mg/dL (8.4-10.2); Carbon Dioxide 30 mmol/L (22-32); Chloride 100 mmol/L (98-107); Estimated Glomerular Filt Rate 27.3 mL/min (>60); Glucose 268 mg/dL (80-110); HEMOLYSIS < 15 (0-50); Sodium 140 mmol/L (137-145)
[2018-12-16 12:11] LABS: Hematocrit 32.1 % (36-46); Hemoglobin 11.2 g/dL (12.0-16.0)
== END ==
LOC: LAB 10:31
PROVIDERS: PCP Internal Medicine; Visit Provider Internal Medicine
DX: D64.9 Anemia, unspecified (principal); N18.9 Chronic kidney disease, unspecified
CPT/HCPCS: 36415; 80048; 85014; 85018

== ENCOUNTER → 2019-01-08 07:54 | Outpatient (REF) | payer MEDICARE, MEDICAID, SELFPAY ==
[2018-08-13 18:55] VITALS: BMI 46.3
[2019-01-08 08:32] LABS: Add Manual Diff / Slide Review NO; Basophils Absolute Auto 100 /uL (0-100); Basophils Percent Auto 0.7 % (0-2); Eosinophils Absolute Auto 300 /uL (0-450); Eosinophils Percent Auto 3.8 % (2-4); Hematocrit 39.3 % (36-46); Hemoglobin 13.3 g/dL (12.0-16.0); Lymphocytes Absolute Auto 1500 /uL (1100-4500); Lymphocytes Percent Auto 18.8 % (25-40); Mean Corpuscular HGB Conc 33.9 % (30-36); Mean Corpuscular Hemoglobin 30.4 PG (26-34); Mean Corpuscular Volume 89.6 fL (80-100); Monocytes Absolute Auto 600 /uL (0-900); Monocytes Percent Auto 7.9 % (3-14); Neutrophils Absolute Auto 5500 /uL (1500-7000); Neutrophils Percent Auto 68.8 % (50-75); Platelet Count 232 X10^3/uL (150-400); Red Blood Cell Count 4.38 X10^6/uL (4.0-5.2); Red Cell Distribution Width 14.6 % (11.6-14.8)
[2019-01-08 08:42] LABS: BUN Creatinine Ratio 7.8 (6-22); Blood Urea Nitrogen 14 mg/dL (7-17); Calcium 9.5 mg/dL (8.4-10.2); Carbon Dioxide 29 mmol/L (22-32); Chloride 98 mmol/L (98-107); Estimated Glomerular Filt Rate 27.3 mL/min (>60); Glucose 340 mg/dL (80-110); HEMOLYSIS < 15 (0-50); Potassium 3.6 mmol/L (3.4-5.1); Sodium 138 mmol/L (137-145)
== END ==
LOC: LAB 07:54
PROVIDERS: PCP Internal Medicine; Visit Provider Internal Medicine
DX: R50.9 Fever, unspecified (principal)
CPT/HCPCS: 36415; 80048; 85025

== ENCOUNTER → 2019-01-09 10:46 | Outpatient (REF) | payer MEDICARE, MEDICAID, SELFPAY ==
[2018-08-13 18:55] VITALS: BMI 46.3
[2019-01-09 10:52] LABS: Bacteria Urine None Seen
[2019-01-09 10:56] LABS: Appearance Urine UA CLOUDY; Bilirubin Urine UA NEGATIVE (NEGATIVE); Color Urine UA YELLOW; Glucose Urine UA 2+ g/dL (Negative); Ketones Urine UA NEGATIVE (NEGATIVE); Leukocyte Esterase Urine UA TRACE (NEGATIVE); Nitrite Urine UA NEGATIVE (Negative); Occult Blood Urine UA TRACE-INTACT (Negative); Protein Urine UA 1+ (Negative); Urobilinogen Urine UA 0.2 E.U./dL (0.2); pH Urine UA 6.5 (4.5-8.0)
[2019-01-09 11:09] LABS: Culture Indicated Urine Specimen Cultured; RBC Urine 5-10/HPF (0-5/HPF); WBC Urine 10-30/HPF (0-5/HPF)
== END ==
LOC: LAB 10:46
PROVIDERS: PCP Internal Medicine; Visit Provider Internal Medicine
DX: R50.9 Fever, unspecified (principal)
CPT/HCPCS: 81001; 87086

== ENCOUNTER → 2019-01-15 07:16 | Outpatient (REF) | payer MEDICARE, MEDICAID, SELFPAY ==
[2018-08-13 18:55] VITALS: BMI 46.3
[2019-01-15 08:52] LABS: BUN Creatinine Ratio 7.6 (6-22); Blood Urea Nitrogen 13 mg/dL (7-17); Calcium 9.9 mg/dL (8.4-10.2); Carbon Dioxide 32 mmol/L (22-32); Chloride 99 mmol/L (98-107); Estimated Glomerular Filt Rate 29.1 mL/min (>60); Glucose 220 mg/dL (80-110); HEMOLYSIS < 15 (0-50); Potassium 4.2 mmol/L (3.4-5.1); Sodium 141 mmol/L (137-145)
== END ==
LOC: LAB 07:16
PROVIDERS: PCP Internal Medicine; Visit Provider Internal Medicine
DX: I63.9 Cerebral infarction, unspecified (principal); K50.90 Crohn's disease, unspecified, without complications
CPT/HCPCS: 36415; 80048

== ENCOUNTER → 2019-02-19 07:19 | Outpatient (REF) | payer MEDICARE, MEDICAID, SELFPAY ==
[2018-08-13 18:55] VITALS: BMI 46.3
[2019-02-19 08:32] LABS: Blood Urea Nitrogen 18 mg/dL (7-17); Calcium 10.2 mg/dL (8.4-10.2); Carbon Dioxide 32 mmol/L (22-32); Chloride 100 mmol/L (98-107); Estimated Glomerular Filt Rate 27.3 mL/min (>60); Glucose 181 mg/dL (80-110); HEMOLYSIS < 15 (0-50); Potassium 3.8 mmol/L (3.4-5.1); Sodium 141 mmol/L (137-145)
== END ==
LOC: LAB 07:19
PROVIDERS: PCP Internal Medicine; Visit Provider Nurse Practitioner Family
DX: N18.3 Chronic kidney disease, stage 3 (moderate) (principal)
CPT/HCPCS: 36415; 80048

== ENCOUNTER → 2019-02-21 14:12 | Outpatient (REF) | payer MEDICARE, MEDICAID, SELFPAY ==
[2018-08-13 18:55] VITALS: BMI 46.3
[2019-02-21 14:15] LABS: RBC Urine None Seen (0-5/HPF)
[2019-02-21 14:43] LABS: Appearance Urine UA CLOUDY; Bilirubin Urine UA NEGATIVE (NEGATIVE); Color Urine UA YELLOW; Glucose Urine UA TRACE g/dL (Negative); Ketones Urine UA NEGATIVE (NEGATIVE); Leukocyte Esterase Urine UA 3+ (NEGATIVE); Nitrite Urine UA NEGATIVE (Negative); Occult Blood Urine UA TRACE-INTACT (Negative); Protein Urine UA 1+ (Negative); Specific Gravity Urine UA 1.015 (1.000-1.035); Urobilinogen Urine UA 0.2 E.U./dL (0.2); pH Urine UA 7.5 (4.5-8.0)
[2019-02-21 15:17] LABS: Bacteria Urine Few (2-10); Culture Indicated Urine Specimen Cultured; Squamous Epithelial Cell Urine 0-1 /HPF (0-5/HPF)
[2019-02-21 15:18] LABS: WBC Urine 30-100/HPF (0-5/HPF)
== END ==
LOC: LAB 14:12
PROVIDERS: Visit Provider Internal Medicine
DX: N39.8 Other specified disorders of urinary system (principal); R30.0 Dysuria
CPT/HCPCS: 81001; 87077; 87086; 87186

== ENCOUNTER 2019-03-04 00:39 | Emergency (ER) | payer MEDICARE, MEDICAID, SELFPAY ==
[2018-08-13 18:55] VITALS: BMI 46.3
[2019-03-04] VITALS (7 sets, daily range): BP systolic 128–154; BP diastolic 52–81; PULSE 64–94; RESP 18–20; TEMP 36.6–36.7; O2SAT 96–97
--- NOTE | 2019-03-04 00:45 | DI.RAD.S_ITS ---
PROCEDURE: XR HIP W PEL IF DONE RT 2V INDICATIONS: Fall with hip pain TECHNIQUE: AP pelvis with lateral view(s) of the right hip(s). COMPARISON: None. FINDINGS: Bones: No fractures or dislocations. Pelvic ring appears intact. No suspicious bony lesions. Lower lumbar spondylosis and moderate bilateral hip degeneration. Soft tissues: Pelvic surgical clips IMPRESSION: No fracture radiographically identified. Dictated by: Tra Galeana M.D. on 03/04/2019 at 8:23 Approved by: Tra Galeana M.D. on 03/04/2019 at 8:24
--- NOTE | 2019-03-04 00:45 | ED.FALL ---
HPI - Fall General Chief Complaint: Trauma Stated Complaint: GLF Time Seen by Provider: 03/04/19 00:39 Source: patient and EMS Mode of arrival: EMS Limitations: no limitations History of Present Illness HPI Narrative: Patient is a 78-year-old female on Xarelto here for evaluation of a ground level fall and a cut to her left lower extremity. The patient states that she was getting into bed when she slipped out of the bed. She stated that she did hit her head and her face. She has some bruising on her face. Her left lower extremity was bandage prior to arrival. She did not arrive in a cervical collar. EMS states that she was not complaining of any neck pain. Patient was complaining of right hip pain and left elbow pain. Related Data Home Medications Medication Instructions Recorded Confirmed albuterol sulfate [Proventil HFA] 2 puff INH Q4HP PRN #0 09/08/16 08/13/18 fluticasone propionate [Flovent 100 mcg INH BIDP PRN #0 09/08/16 08/13/18 Diskus] lamotrigine [Lamictal] 300 mg PO QDAY #0 09/08/16 08/13/18 rivaroxaban [Xarelto] 15 mg PO QDAY #0 09/08/16 08/13/18 docusate sodium 100 mg PO QDAYP PRN #0 07/10/17 08/13/18 atorvastatin 40 mg PO QPM #0 01/18/18 08/13/18 ascorbic acid (vitamin C) [Vitamin 500 mg PO DAILY 04/01/18 08/13/18 C] furosemide [Lasix] 40 mg PO BID 04/01/18 08/13/18 hydroxyzine pamoate [Vistaril] 25 mg PO Q6-8H PRN 04/01/18 08/13/18 insulin aspart U-100 [Novolog See Rx Instructions .ROUTE .COMPLEX 04/01/18 08/13/18 Flexpen U-100 Insulin] erythromycin 0.5 inch EYE-LEFT DAILY 08/08/18 08/13/18 latanoprost 1 drp EYE-RIGHT DAILY 08/08/18 08/13/18 Lac-Hydrin Lotion 12% 1 applic TOPICAL BID 08/13/18 08/13/18 cephalexin 500 mg PO [id number] 08/13/18 08/13/18 cholecalciferol (vitamin D3) 1,000 unit PO DAILY 08/13/18 08/13/18 [Vitamin D3] glipizide 10 mg PO BID 08/13/18 08/13/18 lanolin-mineral oil [Eucerin 1 applic TOPICAL BID 08/13/18 08/13/18 Original] nystatin 1 applic TOPICAL TID 08/13/18 08/13/18 Previous Rx's Medication Instructions Recorded lisinopril 20 mg PO QDAY #30 tab 01/22/18 sertraline [Zoloft] 50 mg PO BEDTIME #30 tab 08/12/18 cephalexin 500 mg PO QID #12 cap 08/15/18 quetiapine 12.5 mg PO BEDTIME #30 tab 08/15/18 Allergies Allergy/AdvReac Type Severity Reaction Status Date / Time Iodine and Iodide Containing Allergy Intermediate i get Verified 02/25/19 10:42 Produc spots all [IODINE AND IODIDE over my CONTAINING PRODUC] body Penicillins [PENICILLINS] Allergy Intermediate makes my Verified 02/25/19 10:42 bones and joints ache aspirin [ASPIRIN] Allergy Unknown Verified 02/25/19 10:42 meclizine [MECLIZINE] Allergy Unknown Verified 02/25/19 10:42 codeine [CODEINE] AdvReac Unknown gives me Verified 02/25/19 10:42 bloody nightmares potassium [POTASSIUM] AdvReac Unknown Verified 02/25/19 10:42 Review of Systems Constitutional Denies fever(s), Reports frequent falls and Denies headache(s) Eyes Denies blurry vision ENT Ears, Nose, Mouth, and Throat: Denies vertigo, Denies dizziness, Denies headache(s) and Denies disequilibrium Cardiovascular Denies chest pain and Denies dyspnea Respiratory Denies dyspnea Gastrointestinal Gastrointestinal: Denies vomiting Genitourinary Denies dysuria Musculoskeletal Denies tingling Comments: Right hip and left elbow pain Integumentary/Breasts Comments: Cut to the left leg Neurologic Denies behavioral changes, Denies confusion, Denies vertigo, Denies dizziness, Reports frequent falls, Denies headache(s), Denies tingling, Denies paresthesias and Denies disequilibrium Psychiatric Denies behavioral changes and Denies confusion Hematologic/Lymphatic Comments: On Xarelto Allergic/Immunologic Denies urticaria Exam Initial Vital Signs Initial Vital Signs: Vital Signs Temperature 98.1 F 03/04/19 00:45 Pulse Rate 78 03/04/19 00:45 Respiratory Rate 20 03/04/19 00:45 Blood Pressure 142/52 H 03/04/19 00:45 Pulse Oximetry 97 03/04/19 00:45 Const General: cooperative and No acute distress Orientation: alert, awake and oriented x3 HENMT Head: normal to inspection and normocephalic Nose: septum normal, No epistaxis and other (Patient was some dry blood in the left nares) Eyes Other: Right eye unremarkable. Cataract left eye Resp Effort & Inspection: normal respiratory effort Auscultation: clear to auscultation bilaterally Cardio Rate: regular rate Rhythm: regular rhythm GI Inspection: non-distended Palpation: soft, No firm and No tender Back/Spine/Pelvis Cervical Spine: No collar present, No cervical spasm and No cervical spinal tenderness Skin Other: Patient with what appears to be an old abrasion to her left forehead. Has a very superficial cut around her left eye. Has some dried blood on the left side of her nose. Patient with a 16 cm ?you ?incision to the anterior aspect of her left tibia. Neuro General: alert, awake and oriented x3 Extrem Other: Patient with tenderness to palpation of the right hip. Also tenderness palpation left elbow. The rest of her neurologic exam is relatively unremarkable Psych Appearance: grossly normal and well kempt FOR[facility]LY [facility] Medical History CVA (cerebral vascular accident) (Acute) Cataract (Acute) Chronic pain (Acute) Depression (Acute) Diabetes (Acute) H/O: hysterectomy (Acute) Hypertension (Acute) Lower extremity edema (Acute) Pulmonary embolism (Acute) Surgical History Hx of appendectomy (Acute) Hx of tonsillectomy (Acute) Hx of total knee arthroplasty (Acute) Social History household members: caregiver Smoking Status: Never smoker alcohol intake: former Social History household members: caregiver Smoking Status: Never smoker alcohol intake: former Procedures Laceration Repair Laceration 1: Site: lower extremity Side (If applicable): left Size (cm): 16 Description: flap, irregular and other (U shaped) Depth: simple, single layer Local Anesthetic: lidocaine 1% and with epi Amount of anesthesia used (mL): 12 Pre-repair: wound explored and irrigated extensively Skin layer closed with: nylon Size (cm): 4-0 Number of sutures: 16 Technique: simple, interrupted Scores GCS [place] coma scale eye opening: Spontaneous [place] coma scale verbal response: Orientated [place] coma scale motor response: Obey commands Walter coma scale total score: 15 Nexus Score for C-Spine Focal Neurologic deficit present: No Midline spinal tenderness present: No Altered level of conciousness present: No Intoxication present: No Distracting Injury Present: No Nexus Criteria for C-spine: 0 Course Orders Ordered: ED Orders 03/04/19 00:45 XR hip w pel if done RT 2V Stat 03/04/19 00:46 CT facial bones wo con Stat CT head/brain wo con Stat 03/04/19 01:25 Basic Metabolic Panel Stat Complete Blood Count AUTO DIFF Stat Partial Thromboplastin Time Stat Prothrombin Time INR Stat 03/04/19 01:38 XR elbow LT min 3V Stat Discontinued Medications Diphtheria/Tetanus/Acell Pertussis (Adacel) 0.5 ml IM .ONCE ONE Stop: 03/04/19 01:36 Last Admin: 03/04/19 01:37 Dose: 0.5 ml Morphine Sulfate (Morphine) 2 mg SUBCUT NOW ONE Stop: 03/04/19 02:45 Last Admin: 03/04/19 02:54 Dose: 2 mg Tramadol HCl (Ultram) 50 mg PO NOW ONE Stop: 03/04/19 02:45 Last Admin: 03/04/19 02:54 Dose: 50 mg Vital Signs - 8 hr 03/04/19 00:45 03/04/19 00:46 03/04/19 01:05 Temperature 98.1 F 98.1 F Pulse Rate 78 78 72 Respiratory Rate 20 20 18 Blood Pressure 142/52 H Blood Pressure [Right Arm] 142/52 H 128/53 L Pulse Oximetry 97 97 97 03/04/19 01:10 03/04/19 01:25 03/04/19 01:50 Temperature Pulse Rate 64 68 66 Respiratory Rate 18 18 18 Blood Pressure Blood Pressure [Right Arm] 131/64 149/77 H 154/81 H Pulse Oximetry 97 96 97 03/04/19 03:37 Temperature 98 F Pulse Rate 94 H Respiratory Rate 18 Blood Pressure Blood Pressure [Right Arm] 145/61 H Pulse Oximetry 97 MDM - Fall Lab Data Attestation: I reviewed the patient's lab results. Result diagrams: 03/04/19 01:25 03/04/19 01:25 Lab Results 03/04/19 03/04/19 03/04/19 Range/Units 01:25 01:25 01:25 WBC 6.9 (4.5-11.0) X10^3/uL RBC 4.29 (4.0-5.2) X10^6/uL Hgb 13.2 (12.0-16.0) g/dL Hct 38.2 (36-46) % MCV 88.9 (80-100) fL MCH 30.8 (26-34) PG MCHC 34.6 (30-36) % RDW 15.1 H (11.6-14.8) % Plt Count 196 (150-400) X10^3/uL Neut % (Auto) 67.3 (50-75) % Lymph % (Auto) 21.7 L (25-40) % [place] % (Auto) 7.1 (3-14) % Eos % (Auto) 3.2 (2-4) % Baso % (Auto) 0.7 (0-2) % Neut # (Auto) 4600 (1486-7187) /uL Lymph # (Auto) 1500 (0942-2808) /uL [place] # (Auto) 500 (0-900) /uL Eos # (Auto) 200 (0-450) /uL Baso # (Auto) 0 (0-100) /uL PT 12.9 H (10.1-12.7) SECONDS INR 1.1 (0.9-1.3) APTT 38 H D (26.4-36.2) SECONDS Sodium 139 (137-145) mmol/L Potassium 3.9 (3.4-5.1) mmol/L Chloride 102 (98-107) mmol/L Carbon Dioxide 29 (22-32) mmol/L BUN 21 H (7-17) mg/dL Creatinine 1.80 H (0.52-1.04) mg/dL Estimated GFR 27.3 L (>60) mL/min BUN/Creatinine Ratio 11.7 (6-22) Glucose 223 H (80-110) mg/dL Calcium 10.2 (8.4-10.2) mg/dL Imaging Data Hip x-ray: Attestation: I personally reviewed and interpreted this imaging study as follows: My impression: No fractures, no dislocations, no acute pathology Left elbow x-ray: Attestation: I personally reviewed and interpreted this imaging study as follows: My impression: No fractures, no dislocations, no acute pathology CT scan - head: Radiologist's impression: No acute intracranial disease CT face: Radiologist's impression: No acute fracture MDM Narrative Medical decision making narrative: Patient does appear that this was a mechanical fall. Her x-rays and CT scans were unremarkable. She did have a fairly complex laceration to her left tibia. This was irrigated. One stitch had to be placed deep to control bleeding. The bottom of the ?U ?shaped incision was more like a skin tear. The skin is very fragile in this area. Stitches were placed to approximate the tissue. This was covered with Steri-Strips and then with bandages. It was irrigated extensively. Her tetanus was updated. Will hold on any antibiotics for now. Patient was given care instructions with regard to the laceration. No other injuries were found from the exam. She was alert oriented x3. She was able to ambulate at baseline with her walker here in the ER. She was given return precautions and follow-up instructions. She expressed understanding and agreement with plan. Discharge Plan Departure Patient Disposition: Home Clinical Impression: Elbow pain, left Contusion of face Qualifiers: Encounter type: initial encounter Qualified Code(s): S00.83XA - Contusion of other part of head, initial encounter Laceration of leg Qualifiers: Encounter type: initial encounter Laterality: left Qualified Code(s): S81.812A - Laceration without foreign body, left lower leg, initial encounter Acute hip pain Qualifiers: Laterality: left Qualified Code(s): M25.552 - Pain in left hip Fall Qualifiers: Encounter type: initial encounter Qualified Code(s): W19.XXXA - Unspecified fall, initial encounter Instructions: Laceration Repair, DI for Laceration Repair Steri-Strips, How to Prevent Falls Activity Restrictions/Additional Instructions: The stitches do need to be removed in 7-10 days. Recommend that you changed the bandage tomorrow. After that you can bathe like normal. Do not scrub the area. There are areas of laceration where the skin is very thin. Return to the emergency department for any new or worsening symptoms. continue all of your medications as directed. Prescriptions: No Action rivaroxaban [Xarelto] 15 MG tablet 15 mg PO QDAY Qty: 0 RF: 0 lamotrigine [Lamictal] 100 MG tablet 300 mg PO QDAY Qty: 0 RF: 0 fluticasone propionate [Flovent Diskus] 100 MCG blister with device 100 mcg INH BIDP PRN (Reason: asthma) Qty: 0 RF: 0 albuterol sulfate [Proventil HFA] 90 MCG/PUFF HFA aerosol inhaler 2 puff INH Q4HP PRN (Reason: Dyspnea) Qty: 0 RF: 0 docusate sodium 100 MG capsule 100 mg PO QDAYP PRN (Reason: Constipation) Qty: 0 RF: 0 atorvastatin 40 MG tablet 40 mg PO QPM Qty: 0 RF: 0 lisinopril 20 MG tablet 20 mg PO QDAY Qty: 30 RF: 0 furosemide [Lasix] 40 mg Tablet 40 mg PO BID RF: 0 ascorbic acid (vitamin C) [Vitamin C] 500 mg Tablet 500 mg PO DAILY RF: 0 hydroxyzine pamoate [Vistaril] 25 mg Capsule 25 mg PO Q6-8H PRN (Reason: Muscle Spasm) RF: 0 insulin aspart U-100 [Novolog Flexpen U-100 Insulin] 100 unit/mL Insulin Pen See Rx Instructions .ROUTE .COMPLEX RF: 0 latanoprost 0.005 % Drops 1 drp EYE-RIGHT DAILY RF: 0 erythromycin 5 mg/gram (0.5 %) Ointment 0.5 inch EYE-LEFT DAILY RF: 0 sertraline [Zoloft] 50 mg Tablet 50 mg PO BEDTIME Qty: 30 RF: 0 glipizide 10 mg Tablet 10 mg PO BID RF: 0 lanolin-mineral oil [Eucerin Original] Lotion 1 applic TOPICAL BID RF: 0 cholecalciferol (vitamin D3) [Vitamin D3] 1,000 unit Tablet 1,000 unit PO DAILY RF: 0 Lac-Hydrin Lotion 12% lotion 1 applic Topical BID RF: 0 cephalexin 250 mg Capsule 500 mg PO [id number] RF: 0 nystatin 100,000 unit/gram Powder 1 applic TOPICAL TID RF: 0 cephalexin 250 mg Capsule 500 mg PO QID Qty: 12 RF: 0 quetiapine 25 mg Tablet 12.5 mg PO BEDTIME Qty: 30 RF: 0 Referrals: Danielle Rodriguez MD [Primary Care Provider] -
--- NOTE | 2019-03-04 00:46 | DI.CT.S_ITS ---
PROCEDURE: CT HEAD/BRAIN WO CON INDICATIONS: Fall , on anticoagulation TECHNIQUE: Noncontrast 4.5 mm thick angled axial sections acquired from the foramen magnum to the vertex, with coronal and sagittal reformats. For radiation dose reduction, the following was used: automated exposure control, adjustment of mA and/or kV according to patient size. COMPARISON: [facility], CT, CT HEAD/BRAIN WO CON, 08/08/2018, 3:14. FINDINGS: Image quality: Excellent. CSF spaces: Basal cisterns are patent. No extra-axial fluid collections. The ventricles are symmetric in size and shape. Brain: No intracranial bleeds or masses. There is mild to moderate cerebral volume loss for age, with resultant ventricular and sulcal prominence. There are mild to moderate periventricular and deep white matter chronic small vessel ischemic changes. There is intracranial internal carotid artery atherosclerosis. Skull and face: Calvarium and visualized facial bones appear intact, without suspicious lesions. Sinuses: Visualized sinuses and mastoids are clear. IMPRESSION: 1. No acute intracranial abnormalities. 2. Cerebral volume loss and chronic microvascular ischemic changes. No significant discrepancy with the overnight associate radiology preliminary report. Dictated by: Tyson Gupta M.D. on 03/04/2019 at 7:18 Approved by: Tyson Gupta M.D. on 03/04/2019 at 7:19
--- NOTE | 2019-03-04 00:46 | DI.CT.S_ITS ---
PROCEDURE: CT FACIAL BONES WO CON INDICATIONS: Fell , hit face TECHNIQUE: Noncontrast 2.5 mm thick axial images acquired from the mandible through the frontal sinuses, with coronal and sagittal reformatting. For radiation dose reduction, the following was used: automated exposure control, adjustment of mA and/or kV according to patient size. COMPARISON: None. FINDINGS: Image quality: Excellent. Bones and teeth: Orbital dugan are intact. Sinus dugan show no fracture or deformity. Nasal bones and septum are intact. Visualized portions of the mandible demonstrate no fractures or subluxation. Zygomatic arches are intact. Pterygoid plates are intact. Visualized portions of the skull base and auditory canals are intact. Sinuses: There is an air-fluid level in the left maxillary sinus. 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 Sinuses are otherwise clear. Mastoid air cells are aerated. Soft tissues: No edema, masses, or fluid collections. No enlarged lymph nodes. No soft tissue lacerations or debris. Vascular: Visualized vascular structures appear normal in the absence of contrast. Bony vascular foramina and canals are intact. IMPRESSION: 1. No facial bone fractures. 2. An air-fluid level in the left maxillary sinus. 3. Emmy bullosa bilaterally. No significant discrepancy with the shift supervisor radiology preliminary report. Dictated by: Tyson Gupta M.D. on 03/04/2019 at 7:19 Approved by: Tyson Gupta M.D. on 03/04/2019 at 7:21
[2019-03-04 01:33] LABS: Add Manual Diff / Slide Review NO; Basophils Absolute Auto 0 /uL (0-100); Basophils Percent Auto 0.7 % (0-2); Eosinophils Absolute Auto 200 /uL (0-450); Eosinophils Percent Auto 3.2 % (2-4); Hematocrit 38.2 % (36-46); Hemoglobin 13.2 g/dL (12.0-16.0); Lymphocytes Absolute Auto 1500 /uL (1100-4500); Lymphocytes Percent Auto 21.7 % (25-40); Mean Corpuscular HGB Conc 34.6 % (30-36); Mean Corpuscular Hemoglobin 30.8 PG (26-34); Mean Corpuscular Volume 88.9 fL (80-100); Monocytes Absolute Auto 500 /uL (0-900); Monocytes Percent Auto 7.1 % (3-14); Neutrophils Absolute Auto 4600 /uL (1500-7000); Neutrophils Percent Auto 67.3 % (50-75); Platelet Count 196 X10^3/uL (150-400); Red Blood Cell Count 4.29 X10^6/uL (4.0-5.2); Red Cell Distribution Width 15.1 % (11.6-14.8); White Blood Cell Count 6.9 X10^3/uL (4.5-11.0)
[2019-03-04] MEDS: TET,DIPH,PERTUSS(ACELL),VAC/PF 0.5 ML SYRINGE IM (01:37)
[2019-03-04 01:38] LABS: INR 1.1 (0.9-1.3); Prothrombin Time 12.9 SECONDS (10.1-12.7)
--- NOTE | 2019-03-04 01:38 | DI.RAD.S_ITS ---
PROCEDURE: XR ELBOW LT MIN 3V INDICATIONS: pain after fall TECHNIQUE: 3 views of the elbow were acquired. COMPARISON: None. FINDINGS: Bones: No fractures or dislocations. No suspicious bony lesions. Chronic olecranon spur Soft tissues: No elbow joint effusion however evaluation limited due to patient positioning.. No suspicious soft tissue calcifications. IMPRESSION: Suboptimal evaluation due to patient positioning. No radiographically identified fracture although if the patient's symptoms/pain persists, repeat radiographs in 10 days could be performed, or alternatively MRI elbow without contrast. Dictated by: Tra Galeana M.D. on 03/04/2019 at 8:46 Approved by: Tra Galeana M.D. on 03/04/2019 at 8:47
[2019-03-04 01:41] LABS: PTT Partial Thromboplastin Tim 38 SECONDS (26.4-36.2)
[2019-03-04 01:42] LABS: BUN Creatinine Ratio 11.7 (6-22); Blood Urea Nitrogen 21 mg/dL (7-17); Calcium 10.2 mg/dL (8.4-10.2); Carbon Dioxide 29 mmol/L (22-32); Chloride 102 mmol/L (98-107); Estimated Glomerular Filt Rate 27.3 mL/min (>60); Glucose 223 mg/dL (80-110); HEMOLYSIS < 15 (0-50); Potassium 3.9 mmol/L (3.4-5.1); Sodium 139 mmol/L (137-145)
--- NOTE | 2019-03-04 02:18 | PC.NURSE ---
Her facial abrasions were cleaned with soap, saline and bacitracin appliedDR.Earnest sutured her left lower leg laceration.
[2019-03-04] MEDS: MORPHINE 4 MG/ML INJ 2 MG SUBCUT (02:54)
[2019-03-04] MEDS: TRAMADOL 50 MG TABLET PO (02:54)
--- NOTE | 2019-03-04 03:00 | PC.NURSE ---
and I applied steri strips after sutures,vaseline gauze,abd. pads,kerlix asd coban.
--- NOTE | 2019-03-04 03:12 | PC.NURSE ---
Addendum entered by Melania Garcai R.N. 03/04/19 04:17: I called her son Brian bryan. Original Note: SHE WAS AMBULATORY WITH HER WALKER WITHOUOT DIFFICULTY.NORMAL GAIT SHE SAID,ALERT.ABLE TO BE DISCHARGED,AWAITING RIDE HOME,MESSAGE LEFT FOR HER SON VONNIE.NO INJURIES NOTED TO HER BACK.
== END 2019-03-04 05:21 | disposition home or self-care (01) ==
PROVIDERS: Emergency Provider Emergency Medicine; PCP Internal Medicine
DX: S00.83XA Contusion of other part of head, initial encounter (principal); S81.812A Laceration without foreign body, left lower leg, initial encounter; M25.552 Pain in left hip; M25.522 Pain in left elbow; W06.XXXA Fall from bed, initial encounter; Z91.81 History of falling; Z23 Encounter for immunization
CPT/HCPCS: 12005; 36415; 70450; 70486; 73080; 73502; 80048; 85025; 85610; 85730; 90471; 96372; 99283; 99291; 99292; 90715; G0390; J2270

== ENCOUNTER 2019-03-07 19:48 | Observation (INO) | payer MEDICARE, MEDICAID, SELFPAY ==
[2018-08-13 18:55] VITALS: BMI 46.3
--- NOTE | 2019-03-07 19:55 | DI.RAD.S_ITS ---
PROCEDURE: XR CHEST 1V INDICATIONS: mental status change TECHNIQUE: One view of the chest was acquired. COMPARISON: [facility], , XR CHEST 1V, 08/08/2018, 2:58. [facility], , CHEST 1 VIEW, 01/18/2018, 5:30. [facility], CR, CHEST 1 VIEW, 06/04/2017, 20:31. [facility], , CHEST 1 VIEW, 09/07/2016, 19:26. FINDINGS: Surgical changes and devices: None. Lungs and pleura: Diffuse reticular pulmonary opacities are again noted, similar to prior exams no pleural effusion or pneumothorax. Mediastinum: Cardiac silhouette remains enlarged, similar to prior exams. Mediastinal silhouette is mildly enlarged, similar to prior exams. Bones and chest wall: No suspicious bony lesions. Overlying soft tissues appear unremarkable. IMPRESSION: Diffuse bilateral reticular pulmonary opacities may represent mild pulmonary edema in the setting of chronic cardiomegaly versus atelectasis. Dictated by: Huseyin Leal M.D. on 03/07/2019 at 20:35 Approved by: Huseyin Leal M.D. on 03/07/2019 at 20:38
--- NOTE | 2019-03-07 19:55 | DI.CT.S_ITS ---
PROCEDURE: CT HEAD/BRAIN WO CON INDICATIONS: mental status change TECHNIQUE: Noncontrast 4.5 mm thick angled axial sections acquired from the foramen magnum to the vertex, with coronal and sagittal reformats. For radiation dose reduction, the following was used: automated exposure control, adjustment of mA and/or kV according to patient size. COMPARISON: [facility], CT, CT HEAD/BRAIN WO CON, 03/04/2019, 0:48. [facility], CT, CT HEAD/BRAIN WO CON, 08/08/2018, 3:14. [facility], CT, HEAD WITHOUT CONTRAST, 01/18/2018, 5:45. [facility], CT, PE STUDY (CTA CHEST), 09/07/2016, 20:57. FINDINGS: Image quality: Excellent. CSF spaces: Basal cisterns are patent. No extra-axial fluid collections. Ventricles are normal in size and shape. Brain: No midline shift. No intracranial masses or hemorrhage. Vann-white matter interface is normal. Moderate diffuse cerebral volume loss. Calcified plaque of the intracranial vasculature noted. Moderate subcortical and periventricular white matter hypoattenuation compatible with chronic microvascular ischemic changes. Skull and face: Calvarium and visualized facial bones are intact, without suspicious lesions. Right lens replacement noted. Sinuses: Left maxillary sinus mucous retention cyst noted. IMPRESSION: No acute intracranial abnormality. Chronic findings as described above. Dictated by: Huseyin Leal M.D. on 03/07/2019 at 21:08 Approved by: Huseyin Leal M.D. on 03/07/2019 at 21:11
--- NOTE | 2019-03-07 19:57 | ED.AMS ---
HPI - Altered Mental Status General Chief Complaint: Neuro Symptoms/Deficit Stated Complaint: Altered Mental Status Time Seen by Provider: 03/07/19 19:50 Source: patient and EMS Mode of arrival: EMS Limitations: altered mental status History of Present Illness HPI narrative: 78-year-old female nonsmoker Joseph presents to the emergency department by EMS for evaluation of altered mental status present for the past 12 hours or so. The group home staff states she was acting abnormal this morning and continues over the course of the day. She has had no reported new injuries or alterations in medications. She is somnolent and will respond although sluggishly and sometimes incorrectly, this is departure from her norm. She was seen here on March 04 after a fall in which she suffered bruising to the left side of her face and a laceration to her anterior beltran. She required laceration repair with sutures. She does have frequent UTIs and states she has had difficulty with urination for approximately the last month. She denies any runny nose, sore throat, cough, chest pain shortness of breath. She has no nausea, or diarrhea. MD complaint: altered mental status Onset (ago): hour(s) Timing confirmed by: caregiver Severity: moderate Consistency of symptoms: getting worse Related Data Home Medications Medication Instructions Recorded Confirmed Flovent Diskus 100 mcg INH BIDP PRN #0 09/08/16 03/07/19 lamotrigine [Lamictal] 300 mg PO QDAY #0 09/08/16 03/07/19 docusate sodium 200 mg PO QDAYP PRN #0 07/10/17 03/07/19 atorvastatin 40 mg PO QPM #0 01/18/18 03/07/19 Novolog Flexpen U-100 Insulin See Rx Instructions .ROUTE .COMPLEX 04/01/18 03/07/19 ascorbic acid (vitamin C) [Vitamin 500 mg PO DAILY 04/01/18 03/07/19 C] furosemide [Lasix] 40 mg PO BID 04/01/18 03/07/19 erythromycin 0.5 inch EYE-LEFT DAILY 08/08/18 03/07/19 latanoprost 1 drp EYE-RIGHT DAILY 08/08/18 03/07/19 Eucerin Original 1 applic TOPICAL BID 08/13/18 03/07/19 Lac-Hydrin Lotion 12% 1 applic TOPICAL BID 08/13/18 03/07/19 cholecalciferol (vitamin D3) 1,000 unit PO DAILY 08/13/18 03/07/19 [Vitamin D3] glipizide 10 mg PO BID 08/13/18 03/07/19 acetaminophen 650 mg PO Q6H PRN 03/07/19 03/07/19 albuterol sulfate [ProAir HFA] 2 puff INHALATION Q4-6H PRN 03/07/19 03/07/19 apixaban [Eliquis] 2.5 mg PO DAILY 03/07/19 03/07/19 gabapentin 100 mg PO TID 03/07/19 03/07/19 guaifenesin [Cough Syrup] 10 ml PO Q4H PRN 03/07/19 03/07/19 insulin glargine [Lantus Solostar 10 unit SUBCUT BID 03/07/19 03/07/19 U-100 Insulin] lidocaine 1 patch TOPICAL DAILY 03/07/19 03/07/19 loratadine [Claritin] 10 mg PO DAILY 03/07/19 03/07/19 lorazepam [Ativan] 1 mg PO Q4HR 03/07/19 03/07/19 tramadol 50 mg PO Q4H 03/07/19 03/07/19 trazodone 50 mg PO BEDTIME PRN 03/07/19 03/07/19 Previous Rx's Medication Instructions Recorded sertraline [Zoloft] 50 mg PO BEDTIME #30 tab 08/12/18 Allergies Allergy/AdvReac Type Severity Reaction Status Date / Time Iodine and Iodide Containing Allergy Intermediate i get Verified 03/07/19 20:01 Produc spots all [IODINE AND IODIDE over my CONTAINING PRODUC] body Penicillins [PENICILLINS] Allergy Intermediate makes my Verified 03/07/19 20:01 bones and joints ache aspirin [ASPIRIN] Allergy Unknown Verified 03/07/19 20:01 meclizine [MECLIZINE] Allergy Unknown Verified 03/07/19 20:01 codeine [CODEINE] AdvReac Unknown gives me Verified 03/07/19 20:01 bloody nightmares potassium [POTASSIUM] AdvReac Unknown Verified 03/07/19 20:01 Review of Systems Constitutional Denies chills, Denies fever(s), Denies lethargy and Reports weakness Eyes Denies change in vision, Denies eye discharge, Denies irritation and Denies loss of vision ENT Ears, Nose, Mouth, and Throat: Denies change in voice, Denies neck pain and Denies sore throat Cardiovascular Denies chest pain, Denies irregular heart rhythm, Denies lightheadedness, Denies palpitations, Denies dyspnea, Denies dyspnea on exertion and Denies orthopnea Respiratory Denies cough, Denies dyspnea, Denies dyspnea on exertion and Denies wheezing Gastrointestinal Gastrointestinal: Denies abdominal pain, Denies change in bowel habits, Denies diarrhea, Denies nausea and Denies vomiting Genitourinary Denies hematuria, Reports dysuria, Denies flank pain, Denies urinary incontinence and Denies urinary urgency Musculoskeletal Denies neck pain Integumentary/Breasts Denies pruritus, Reports erythema, Denies rash, Reports skin pain, Reports skin swelling and Reports wounds Neurologic Reports as per HPI, Reports behavioral changes, Reports confusion, Denies loss of vision and Reports weakness Psychiatric Denies anxiety, Reports behavioral changes, Reports confusion, Denies depression, Denies homicidal ideation and Denies suicidal ideation Endocrine Denies palpitations Hematologic/Lymphatic Denies easy bruising Allergic/Immunologic Denies wheezing Exam Narrative Exam Narrative: GENERAL: 78-year-old female appears stated age, chronically, ill-appearing, mildly lethargic HEAD:Yellowing brusing to L face EYES: Pupils equal round and reactive. Extraocular motions intact. No scleral icterus. No injection or drainage. ENT: Nose without bleeding, purulent drainage or septal hematoma. Throat without erythema, tonsillar hypertrophy or exudate. Uvula midline. Airway patent. NECK: Trachea midline. No JVD or lymphadenopathy. Supple, nontender, no meningeal signs. CARDIOVASCULAR: Regular rate and rhythm without murmurs, gallops, or rubs. RESPIRATORY: Clear to auscultation. Breath sounds equal bilaterally. No wheezes, rales, or rhonchi. GASTROINTESTINAL: Abdomen soft, non-tender, nondistended. No hepato-splenomegaly, or palpable masses. No guarding. EXTREMITIES: No clubbing, cyanosis, or edema. No joint tenderness, effusion, or edema noted. BACK: Nontender without deformity or crepitance. No flank tenderness. NEURO: Obtunded. SKIN: Chronic venous stasis. Erythema and swelling surrounding laceration on L anterior beltran. Initial Vital Signs Initial Vital Signs: Vital Signs Temperature 98.6 F 03/07/19 20:01 Pulse Rate 85 03/07/19 20:01 Respiratory Rate 15 03/07/19 20:01 Blood Pressure 153/65 H 03/07/19 20:01 Pulse Oximetry 96 03/07/19 20:01 Scores GCS Shelby coma scale eye opening: To sound Shelby coma scale verbal response: Confused Walter coma scale motor response: Localising Walter coma scale total score: 12 Course Orders Ordered: ED Orders 03/07/19 19:55 CT head/brain wo con Stat XR chest 1V Stat EKG-12 Lead Stat 03/07/19 20:04 Complete Blood Count AUTO DIFF Stat Comprehensive Metabolic Panel Stat Osmolality, Serum Stat Partial Thromboplastin Time Stat Procalcitonin Stat Prothrombin Time INR Stat Troponin I Stat 03/07/19 20:30 Lactate (Lactic Acid) Stat 03/07/19 20:40 Blood Culture Stat 03/07/19 21:06 Urinalysis and Microscopic Stat Urine Culture Stat Discontinued Medications Cefazolin Sodium/Dextrose (Ancef) 1 gm in 50 mls @ 200 mls/hr IV NOW ONE Stop: 03/07/19 22:56 Last Infusion: 03/07/19 23:32 Dose: 0 mls/hr Admin: 03/07/19 23:16 Dose: 200 mls/hr Consultations Consultation #1: Hospitalist happy to accept Vital Signs - 8 hr 03/07/19 20:01 03/07/19 21:10 03/07/19 22:07 Temperature 98.6 F Pulse Rate 85 63 42 L Respiratory Rate 15 17 Blood Pressure 153/65 H Blood Pressure [Left Arm] 158/76 H 116/41 L Pulse Oximetry 96 95 94 03/07/19 23:57 03/08/19 00:05 Temperature 97.8 F Pulse Rate 58 L 63 Respiratory Rate 19 Blood Pressure 167/67 H Blood Pressure [Left Arm] Pulse Oximetry 96 96 MDM - Altered Mental Status Lab Data Result diagrams: 03/07/19 20:04 03/07/19 20:04 Lab Results 03/07/19 03/07/19 03/07/19 Range/Units 20:04 20:04 20:04 WBC 7.9 (4.5-11.0) X10^3/uL RBC 4.21 (4.0-5.2) X10^6/uL Hgb 12.9 (12.0-16.0) g/dL Hct 37.9 (36-46) % MCV 90.1 (80-100) fL MCH 30.6 (26-34) PG MCHC 34.0 (30-36) % RDW 15.2 H (11.6-14.8) % Plt Count 216 (150-400) X10^3/uL Neut % (Auto) 62.9 (50-75) % Lymph % (Auto) 25.9 (25-40) % [place] % (Auto) 7.4 (3-14) % Eos % (Auto) 3.2 (2-4) % Baso % (Auto) 0.6 (0-2) % Neut # (Auto) 5000 (4937-6796) /uL Lymph # (Auto) 2100 (5405-8625) /uL [place] # (Auto) 600 (0-900) /uL Eos # (Auto) 300 (0-450) /uL Baso # (Auto) 100 (0-100) /uL PT 13.0 H (10.1-12.7) SECONDS INR 1.1 (0.9-1.3) APTT 36 D (26.4-36.2) SECONDS Sodium 141 (137-145) mmol/L Potassium 3.5 (3.4-5.1) mmol/L Chloride 101 (98-107) mmol/L Carbon Dioxide 32 (22-32) mmol/L BUN 18 H (7-17) mg/dL Creatinine 1.80 H (0.52-1.04) mg/dL Estimated GFR 27.3 L (>60) mL/min BUN/Creatinine Ratio 10.0 (6-22) Glucose 114 H D (80-110) mg/dL Lactate (0.7-2.1) mmol/L Calcium 10.1 (8.4-10.2) mg/dL Total Bilirubin 0.5 (0.2-1.3) mg/dL AST 19 (14-36) IU/L ALT 24 (9-52) IU/L Alkaline Phosphatase 110 (38-126) U/L Troponin I < 0.012 (0.01-0.034) ng/mL Total Protein 7.2 (6.3-8.2) g/dL Albumin 4.1 (3.5-5.0) g/dL Globulin 3.1 (1.7-4.1) g/dL Albumin/Globulin Ratio 1.3 (1.0-2.8) Procalcitonin (<0.5) ng/mL Urine Color Urine Appearance Urine pH (4.5-8.0) Ur Specific [place] (1.000-1.035) Urine Protein (Negative) Urine Glucose (UA) (Negative) g/dL Urine Ketones (NEGATIVE) Urine Occult Blood (Negative) Urine Nitrate (Negative) Urine Bilirubin (NEGATIVE) Urine Urobilinogen (0.2) E.U./dL Ur Leukocyte Esterase (NEGATIVE) Urine RBC (0-5/HPF) Urine WBC (0-5/HPF) Urine Bacteria (None) Ur Culture Indicated? Urine Opiates Screen (Negative) Ur Oxycodone Screen (Negative) Urine Methadone Screen (Negative) Ur Barbiturates Screen (Negative) U Tricyclic Antidepress (Negative) Ur Phencyclidine Scrn (Negative) Ur Amphetamines Screen (Negative) U Methamphetamines Scrn (Negative) Ur MDMA Scrn (Ecstasy) (Negative) U Benzodiazepines Scrn (Negative) Urine Cocaine Screen (Negative) U Marijuana (THC) Screen (Negative) 03/07/19 03/07/19 03/07/19 Range/Units 20:04 20:30 21:06 WBC (4.5-11.0) X10^3/uL RBC (4.0-5.2) X10^6/uL Hgb (12.0-16.0) g/dL Hct (36-46) % MCV (80-100) fL MCH (26-34) PG MCHC (30-36) % RDW (11.6-14.8) % Plt Count (150-400) X10^3/uL Neut % (Auto) (50-75) % Lymph % (Auto) (25-40) % [place] % (Auto) (3-14) % Eos % (Auto) (2-4) % Baso % (Auto) (0-2) % Neut # (Auto) (8052-7649) /uL Lymph # (Auto) (1486-3230) /uL Florence # (Auto) (0-900) /uL Eos # (Auto) (0-450) /uL Baso # (Auto) (0-100) /uL PT (10.1-12.7) SECONDS INR (0.9-1.3) APTT (26.4-36.2) SECONDS Sodium (137-145) mmol/L Potassium (3.4-5.1) mmol/L Chloride (98-107) mmol/L Carbon Dioxide (22-32) mmol/L BUN (7-17) mg/dL Creatinine (0.52-1.04) mg/dL Estimated GFR (>60) mL/min BUN/Creatinine Ratio (6-22) Glucose (80-110) mg/dL Lactate 1.5 (0.7-2.1) mmol/L Calcium (8.4-10.2) mg/dL Total Bilirubin (0.2-1.3) mg/dL AST (14-36) IU/L ALT (9-52) IU/L Alkaline Phosphatase (38-126) U/L Troponin I (0.01-0.034) ng/mL Total Protein (6.3-8.2) g/dL Albumin (3.5-5.0) g/dL Globulin (1.7-4.1) g/dL Albumin/Globulin Ratio (1.0-2.8) Procalcitonin < 0.05 (<0.5) ng/mL Urine Color Yellow Urine Appearance Clear Urine pH 7.0 (4.5-8.0) Ur Specific [place] 1.015 (1.000-1.035) Urine Protein Negative (Negative) Urine Glucose (UA) Negative (Negative) g/dL Urine Ketones Negative (NEGATIVE) Urine Occult Blood Negative (Negative) Urine Nitrate Negative (Negative) Urine Bilirubin Negative (NEGATIVE) Urine Urobilinogen 0.2 (0.2) E.U./dL Ur Leukocyte Esterase 2+ H (NEGATIVE) Urine RBC None seen (0-5/HPF) Urine WBC 1-5/hpf (0-5/HPF) Urine Bacteria Occasional (0-1) (None) Ur Culture Indicated? Specimen cultured Urine Opiates Screen (Negative) Ur Oxycodone Screen (Negative) Urine Methadone Screen (Negative) Ur Barbiturates Screen (Negative) U Tricyclic Antidepress (Negative) Ur Phencyclidine Scrn (Negative) Ur Amphetamines Screen (Negative) U Methamphetamines Scrn (Negative) Ur MDMA Scrn (Ecstasy) (Negative) U Benzodiazepines Scrn (Negative) Urine Cocaine Screen (Negative) U Marijuana (THC) Screen (Negative) 03/08/19 Range/Units 00:18 WBC (4.5-11.0) X10^3/uL RBC (4.0-5.2) X10^6/uL Hgb (12.0-16.0) g/dL Hct (36-46) % MCV (80-100) fL MCH (26-34) PG MCHC (30-36) % RDW (11.6-14.8) % Plt Count (150-400) X10^3/uL Neut % (Auto) (50-75) % Lymph % (Auto) (25-40) % [place] % (Auto) (3-14) % Eos % (Auto) (2-4) % Baso % (Auto) (0-2) % Neut # (Auto) (3738-2254) /uL Lymph # (Auto) (3791-3706) /uL [place] # (Auto) (0-900) /uL Eos # (Auto) (0-450) /uL Baso # (Auto) (0-100) /uL PT (10.1-12.7) SECONDS INR (0.9-1.3) APTT (26.4-36.2) SECONDS Sodium (137-145) mmol/L Potassium (3.4-5.1) mmol/L Chloride (98-107) mmol/L Carbon Dioxide (22-32) mmol/L BUN (7-17) mg/dL Creatinine (0.52-1.04) mg/dL Estimated GFR (>60) mL/min BUN/Creatinine Ratio (6-22) Glucose (80-110) mg/dL Lactate (0.7-2.1) mmol/L Calcium (8.4-10.2) mg/dL Total Bilirubin (0.2-1.3) mg/dL AST (14-36) IU/L ALT (9-52) IU/L Alkaline Phosphatase (38-126) U/L Troponin I (0.01-0.034) ng/mL Total Protein (6.3-8.2) g/dL Albumin (3.5-5.0) g/dL Globulin (1.7-4.1) g/dL Albumin/Globulin Ratio (1.0-2.8) Procalcitonin (<0.5) ng/mL Urine Color Urine Appearance Urine pH (4.5-8.0) Ur Specific [place] (1.000-1.035) Urine Protein (Negative) Urine Glucose (UA) (Negative) g/dL Urine Ketones (NEGATIVE) Urine Occult Blood (Negative) Urine Nitrate (Negative) Urine Bilirubin (NEGATIVE) Urine Urobilinogen (0.2) E.U./dL Ur Leukocyte Esterase (NEGATIVE) Urine RBC (0-5/HPF) Urine WBC (0-5/HPF) Urine Bacteria (None) Ur Culture Indicated? Urine Opiates Screen Negative (Negative) Ur Oxycodone Screen Negative (Negative) Urine Methadone Screen Negative (Negative) Ur Barbiturates Screen Negative (Negative) U Tricyclic Antidepress Negative (Negative) Ur Phencyclidine Scrn Negative (Negative) Ur Amphetamines Screen Negative (Negative) U Methamphetamines Scrn Negative (Negative) Ur MDMA Scrn (Ecstasy) Negative (Negative) U Benzodiazepines Scrn Positive H (Negative) Urine Cocaine Screen Negative (Negative) U Marijuana (THC) Screen Negative (Negative) MDM Narrative Medical decision making narrative: 78-year-old female presents with mental status supervisor policy change clerks the course of the day and reported dysuria. Patient was seen a few days ago for a fall with head injury. She does take Eliquis after our workup her encephalopathy has no clear etiology. Possibilities include polypharmacy, infectious versus other. The patient comes from a assisted living facility and is clearly too much for them to handle. She cannot be safely discharged to the facility that sent her here. Patient requires hospitalization for further evaluation of her underlying condition Discharge Plan Departure Patient Disposition: Admitted as Observation Clinical Impression: Acute metabolic encephalopathy Discharge Date/Time: 03/07/19 23:58 Interventions: ED Discharge Assessment Last Done: 03/07/19 23:57 Admit Date/Time: 03/07/19 22:49 Admit Provider: Gume Lr
[2019-03-07 20:01] VITALS: BP 153/65; PULSE 85; RESP 15; TEMP 37; O2SAT 96
--- NOTE | 2019-03-07 20:02 | ED_ITS ---
HPI - Altered Mental Status General Chief Complaint: Neuro Symptoms/Deficit Stated Complaint: Altered Mental Status Time Seen by Provider: 03/07/19 19:50 Source: patient and EMS Mode of arrival: EMS Limitations: altered mental status History of Present Illness HPI narrative: 78-year-old female nonsmoker Joseph presents to the emergency department by EMS for evaluation of altered mental status present for the past 12 hours or so. The [facility] staff states she was acting abnormal this morning and continues over the course of the day. She has had no reported new injuries or alterations in medications. She is somnolent and will respond although sluggishly and sometimes incorrectly, this is departure from her norm. She was seen here on March 04 after a fall in which she suffered bruising to the left side of her face and a laceration to her anterior beltran. She required laceration repair with sutures. She does have frequent UTIs and states she has had difficulty with urination for approximately the last month. She denies any runny nose, sore throat, cough, chest pain shortness of breath. She has no nausea, or diarrhea. MD complaint: altered mental status Onset (ago): hour(s) Timing confirmed by: caregiver Severity: moderate Consistency of symptoms: getting worse Related Data Home Medications Medication Instructions Recorded Confirmed Flovent Diskus 100 mcg INH BIDP PRN #0 09/08/16 03/07/19 lamotrigine [Lamictal] 300 mg PO QDAY #0 09/08/16 03/07/19 docusate sodium 200 mg PO QDAYP PRN #0 07/10/17 03/07/19 atorvastatin 40 mg PO QPM #0 01/18/18 03/07/19 Novolog Flexpen U-100 Insulin See Rx Instructions .ROUTE .COMPLEX 04/01/18 03/07/19 ascorbic acid (vitamin C) [Vitamin 500 mg PO DAILY 04/01/18 03/07/19 C] furosemide [Lasix] 40 mg PO BID 04/01/18 03/07/19 erythromycin 0.5 inch EYE-LEFT DAILY 08/08/18 03/07/19 latanoprost 1 drp EYE-RIGHT DAILY 08/08/18 03/07/19 Eucerin Original 1 applic TOPICAL BID 08/13/18 03/07/19 Lac-Hydrin Lotion 12% 1 applic TOPICAL BID 08/13/18 03/07/19 cholecalciferol (vitamin D3) 1,000 unit PO DAILY 08/13/18 03/07/19 [Vitamin D3] glipizide 10 mg PO BID 08/13/18 03/07/19 acetaminophen 650 mg PO Q6H PRN 03/07/19 03/07/19 albuterol sulfate [ProAir HFA] 2 puff INHALATION Q4-6H PRN 03/07/19 03/07/19 apixaban [Eliquis] 2.5 mg PO DAILY 03/07/19 03/07/19 gabapentin 100 mg PO TID 03/07/19 03/07/19 guaifenesin [Cough Syrup] 10 ml PO Q4H PRN 03/07/19 03/07/19 insulin glargine [Lantus Solostar 10 unit SUBCUT BID 03/07/19 03/07/19 U-100 Insulin] lidocaine 1 patch TOPICAL DAILY 03/07/19 03/07/19 loratadine [Claritin] 10 mg PO DAILY 03/07/19 03/07/19 lorazepam [Ativan] 1 mg PO Q4HR 03/07/19 03/07/19 tramadol 50 mg PO Q4H 03/07/19 03/07/19 trazodone 50 mg PO BEDTIME PRN 03/07/19 03/07/19 Previous Rx's Medication Instructions Recorded sertraline [Zoloft] 50 mg PO BEDTIME #30 tab 08/12/18 Allergies Allergy/AdvReac Type Severity Reaction Status Date / Time Iodine and Iodide Containing Allergy Intermediate i get Verified 03/07/19 20:01 Produc spots all [IODINE AND IODIDE over my CONTAINING PRODUC] body Penicillins [PENICILLINS] Allergy Intermediate makes my Verified 03/07/19 20:01 bones and joints ache aspirin [ASPIRIN] Allergy Unknown Verified 03/07/19 20:01 meclizine [MECLIZINE] Allergy Unknown Verified 03/07/19 20:01 codeine [CODEINE] AdvReac Unknown gives me Verified 03/07/19 20:01 bloody nightmares potassium [POTASSIUM] AdvReac Unknown Verified 03/07/19 20:01 Review of Systems Constitutional Denies chills, Denies fever(s), Denies lethargy and Reports weakness Eyes Denies change in vision, Denies eye discharge, Denies irritation and Denies loss of vision ENT Ears, Nose, Mouth, and Throat: Denies change in voice, Denies neck pain and Denies sore throat Cardiovascular Denies chest pain, Denies irregular heart rhythm, Denies lightheadedness, Denies palpitations, Denies dyspnea, Denies dyspnea on exertion and Denies orthopnea Respiratory Denies cough, Denies dyspnea, Denies dyspnea on exertion and Denies wheezing Gastrointestinal Gastrointestinal: Denies abdominal pain, Denies change in bowel habits, Denies diarrhea, Denies nausea and Denies vomiting Genitourinary Denies hematuria, Reports dysuria, Denies flank pain, Denies urinary incontinence and Denies urinary urgency Musculoskeletal Denies neck pain Integumentary/Breasts Denies pruritus, Reports erythema, Denies rash, Reports skin pain, Reports skin swelling and Reports wounds Neurologic Reports as per HPI, Reports behavioral changes, Reports confusion, Denies loss of vision and Reports weakness Psychiatric Denies anxiety, Reports behavioral changes, Reports confusion, Denies depression, Denies homicidal ideation and Denies suicidal ideation Endocrine Denies palpitations Hematologic/Lymphatic Denies easy bruising Allergic/Immunologic Denies wheezing Exam Narrative Exam Narrative: GENERAL: 78-year-old female appears stated age, chronically, ill-appearing, mildly lethargic HEAD:Yellowing brusing to L face EYES: Pupils equal round and reactive. Extraocular motions intact. No scleral icterus. No injection or drainage. ENT: Nose without bleeding, purulent drainage or septal hematoma. Throat without erythema, tonsillar hypertrophy or exudate. Uvula midline. Airway patent. NECK: Trachea midline. No JVD or lymphadenopathy. Supple, nontender, no meningeal signs. CARDIOVASCULAR: Regular rate and rhythm without murmurs, gallops, or rubs. RESPIRATORY: Clear to auscultation. Breath sounds equal bilaterally. No wheezes, rales, or rhonchi. GASTROINTESTINAL: Abdomen soft, non-tender, nondistended. No hepato- splenomegaly, or palpable masses. No guarding. EXTREMITIES: No clubbing, cyanosis, or edema. No joint tenderness, effusion, or edema noted. BACK: Nontender without deformity or crepitance. No flank tenderness. NEURO: Obtunded. SKIN: Chronic venous stasis. Erythema and swelling surrounding laceration on L anterior beltran. Initial Vital Signs Initial Vital Signs: Vital Signs Temperature 98.6 F 03/07/19 20:01 Pulse Rate 85 03/07/19 20:01 Respiratory Rate 15 03/07/19 20:01 Blood Pressure 153/65 H 03/07/19 20:01 Pulse Oximetry 96 03/07/19 20:01 Scores GCS [place] coma scale eye opening: To sound [place] coma scale verbal response: Confused [place] coma scale motor response: Localising [place] coma scale total score: 12 Course Orders Ordered: ED Orders 03/07/19 19:55 CT head/brain wo con Stat XR chest 1V Stat EKG-12 Lead Stat 03/07/19 20:04 Complete Blood Count AUTO DIFF Stat Comprehensive Metabolic Panel Stat Osmolality, Serum Stat Partial Thromboplastin Time Stat Procalcitonin Stat Prothrombin Time INR Stat Troponin I Stat 03/07/19 20:30 Lactate (Lactic Acid) Stat 03/07/19 20:40 Blood Culture Stat 03/07/19 21:06 Urinalysis and Microscopic Stat Urine Culture Stat Discontinued Medications Cefazolin Sodium/Dextrose (Ancef) 1 gm in 50 mls @ 200 mls/hr IV NOW ONE Stop: 03/07/19 22:56 Last Infusion: 03/07/19 23:32 Dose: 0 mls/hr Admin: 03/07/19 23:16 Dose: 200 mls/hr Consultations Consultation #1: Hospitalist happy to accept Vital Signs - 8 hr 03/07/19 20:01 03/07/19 21:10 03/07/19 22:07 Temperature 98.6 F Pulse Rate 85 63 42 L Respiratory Rate 15 17 Blood Pressure 153/65 H Blood Pressure [Left Arm] 158/76 H 116/41 L Pulse Oximetry 96 95 94 03/07/19 23:57 03/08/19 00:05 Temperature 97.8 F Pulse Rate 58 L 63 Respiratory Rate 19 Blood Pressure 167/67 H Blood Pressure [Left Arm] Pulse Oximetry 96 96 MDM - Altered Mental Status Lab Data Result diagrams: 03/07/19 20:04 03/07/19 20:04 Lab Results 03/07/19 03/07/19 03/07/19 Range/Units 20:04 20:04 20:04 WBC 7.9 (4.5-11.0) X10^3/uL RBC 4.21 (4.0-5.2) X10^6/uL Hgb 12.9 (12.0-16.0) g/dL Hct 37.9 (36-46) % MCV 90.1 (80-100) fL MCH 30.6 (26-34) PG MCHC 34.0 (30-36) % RDW 15.2 H (11.6-14.8) % Plt Count 216 (150-400) X10^3/uL Neut % (Auto) 62.9 (50-75) % Lymph % (Auto) 25.9 (25-40) % [place] % (Auto) 7.4 (3-14) % Eos % (Auto) 3.2 (2-4) % Baso % (Auto) 0.6 (0-2) % Neut # (Auto) 5000 (9966-2565) /uL Lymph # (Auto) 2100 (4696-6450) /uL [place] # (Auto) 600 (0-900) /uL Eos # (Auto) 300 (0-450) /uL Baso # (Auto) 100 (0-100) /uL PT 13.0 H (10.1-12.7) SECONDS INR 1.1 (0.9-1.3) APTT 36 D (26.4-36.2) SECONDS Sodium 141 (137-145) mmol/L Potassium 3.5 (3.4-5.1) mmol/L Chloride 101 (98-107) mmol/L Carbon Dioxide 32 (22-32) mmol/L BUN 18 H (7-17) mg/dL Creatinine 1.80 H (0.52-1.04) mg/dL Estimated GFR 27.3 L (>60) mL/min BUN/Creatinine Ratio 10.0 (6-22) Glucose 114 H D (80-110) mg/dL Lactate (0.7-2.1) mmol/L Calcium 10.1 (8.4-10.2) mg/dL Total Bilirubin 0.5 (0.2-1.3) mg/dL AST 19 (14-36) IU/L ALT 24 (9-52) IU/L Alkaline Phosphatase 110 (38-126) U/L Troponin I < 0.012 (0.01-0.034) ng/mL Total Protein 7.2 (6.3-8.2) g/dL Albumin 4.1 (3.5-5.0) g/dL Globulin 3.1 (1.7-4.1) g/dL Albumin/Globulin Ratio 1.3 (1.0-2.8) Procalcitonin (<0.5) ng/mL Urine Color Urine Appearance Urine pH (4.5-8.0) Ur Specific [place] (1.000-1.035) Urine Protein (Negative) Urine Glucose (UA) (Negative) g/dL Urine Ketones (NEGATIVE) Urine Occult Blood (Negative) Urine Nitrate (Negative) Urine Bilirubin (NEGATIVE) Urine Urobilinogen (0.2) E.U./dL Ur Leukocyte Esterase (NEGATIVE) Urine RBC (0-5/HPF) Urine WBC (0-5/HPF) Urine Bacteria (None) Ur Culture Indicated? Urine Opiates Screen (Negative) Ur Oxycodone Screen (Negative) Urine Methadone Screen (Negative) Ur Barbiturates Screen (Negative) U Tricyclic Antidepress (Negative) Ur Phencyclidine Scrn (Negative) Ur Amphetamines Screen (Negative) U Methamphetamines Scrn (Negative) Ur MDMA Scrn (Ecstasy) (Negative) U Benzodiazepines Scrn (Negative) Urine Cocaine Screen (Negative) U Marijuana (THC) Screen (Negative) 03/07/19 03/07/19 03/07/19 Range/Units 20:04 20:30 21:06 WBC (4.5-11.0) X10^3/uL RBC (4.0-5.2) X10^6/uL Hgb (12.0-16.0) g/dL Hct (36-46) % MCV (80-100) fL MCH (26-34) PG MCHC (30-36) % RDW (11.6-14.8) % Plt Count (150-400) X10^3/uL Neut % (Auto) (50-75) % Lymph % (Auto) (25-40) % [place] % (Auto) (3-14) % Eos % (Auto) (2-4) % Baso % (Auto) (0-2) % Neut # (Auto) (8648-0218) /uL Lymph # (Auto) (4954-5767) /uL [place] # (Auto) (0-900) /uL Eos # (Auto) (0-450) /uL Baso # (Auto) (0-100) /uL PT (10.1-12.7) SECONDS INR (0.9-1.3) APTT (26.4-36.2) SECONDS Sodium (137-145) mmol/L Potassium (3.4-5.1) mmol/L Chloride (98-107) mmol/L Carbon Dioxide (22-32) mmol/L BUN (7-17) mg/dL Creatinine (0.52-1.04) mg/dL Estimated GFR (>60) mL/min BUN/Creatinine Ratio (6-22) Glucose (80-110) mg/dL Lactate 1.5 (0.7-2.1) mmol/L Calcium (8.4-10.2) mg/dL Total Bilirubin (0.2-1.3) mg/dL AST (14-36) IU/L ALT (9-52) IU/L Alkaline Phosphatase (38-126) U/L Troponin I (0.01-0.034) ng/mL Total Protein (6.3-8.2) g/dL Albumin (3.5-5.0) g/dL Globulin (1.7-4.1) g/dL Albumin/Globulin Ratio (1.0-2.8) Procalcitonin < 0.05 (<0.5) ng/mL Urine Color Yellow Urine Appearance Clear Urine pH 7.0 (4.5-8.0) Ur Specific [place] 1.015 (1.000-1.035) Urine Protein Negative (Negative) Urine Glucose (UA) Negative (Negative) g/dL Urine Ketones Negative (NEGATIVE) Urine Occult Blood Negative (Negative) Urine Nitrate Negative (Negative) Urine Bilirubin Negative (NEGATIVE) Urine Urobilinogen 0.2 (0.2) E.U./dL Ur Leukocyte Esterase 2+ H (NEGATIVE) Urine RBC None seen (0-5/HPF) Urine WBC 1-5/hpf (0-5/HPF) Urine Bacteria Occasional (0-1) (None) Ur Culture Indicated? Specimen cultured Urine Opiates Screen (Negative) Ur Oxycodone Screen (Negative) Urine Methadone Screen (Negative) Ur Barbiturates Screen (Negative) U Tricyclic Antidepress (Negative) Ur Phencyclidine Scrn (Negative) Ur Amphetamines Screen (Negative) U Methamphetamines Scrn (Negative) Ur MDMA Scrn (Ecstasy) (Negative) U Benzodiazepines Scrn (Negative) Urine Cocaine Screen (Negative) U Marijuana (THC) Screen (Negative) 03/08/19 Range/Units 00:18 WBC (4.5-11.0) X10^3/uL RBC (4.0-5.2) X10^6/uL Hgb (12.0-16.0) g/dL Hct (36-46) % MCV (80-100) fL MCH (26-34) PG MCHC (30-36) % RDW (11.6-14.8) % Plt Count (150-400) X10^3/uL Neut % (Auto) (50-75) % Lymph % (Auto) (25-40) % [place] % (Auto) (3-14) % Eos % (Auto) (2-4) % Baso % (Auto) (0-2) % Neut # (Auto) (0420-3745) /uL Lymph # (Auto) (7319-4838) /uL [place] # (Auto) (0-900) /uL Eos # (Auto) (0-450) /uL Baso # (Auto) (0-100) /uL PT (10.1-12.7) SECONDS INR (0.9-1.3) APTT (26.4-36.2) SECONDS Sodium (137-145) mmol/L Potassium (3.4-5.1) mmol/L Chloride (98-107) mmol/L Carbon Dioxide (22-32) mmol/L BUN (7-17) mg/dL Creatinine (0.52-1.04) mg/dL Estimated GFR (>60) mL/min BUN/Creatinine Ratio (6-22) Glucose (80-110) mg/dL Lactate (0.7-2.1) mmol/L Calcium (8.4-10.2) mg/dL Total Bilirubin (0.2-1.3) mg/dL AST (14-36) IU/L ALT (9-52) IU/L Alkaline Phosphatase (38-126) U/L Troponin I (0.01-0.034) ng/mL Total Protein (6.3-8.2) g/dL Albumin (3.5-5.0) g/dL Globulin (1.7-4.1) g/dL Albumin/Globulin Ratio (1.0-2.8) Procalcitonin (<0.5) ng/mL Urine Color Urine Appearance Urine pH (4.5-8.0) Ur Specific [place] (1.000-1.035) Urine Protein (Negative) Urine Glucose (UA) (Negative) g/dL Urine Ketones (NEGATIVE) Urine Occult Blood (Negative) Urine Nitrate (Negative) Urine Bilirubin (NEGATIVE) Urine Urobilinogen (0.2) E.U./dL Ur Leukocyte Esterase (NEGATIVE) Urine RBC (0-5/HPF) Urine WBC (0-5/HPF) Urine Bacteria (None) Ur Culture Indicated? Urine Opiates Screen Negative (Negative) Ur Oxycodone Screen Negative (Negative) Urine Methadone Screen Negative (Negative) Ur Barbiturates Screen Negative (Negative) U Tricyclic Antidepress Negative (Negative) Ur Phencyclidine Scrn Negative (Negative) Ur Amphetamines Screen Negative (Negative) U Methamphetamines Scrn Negative (Negative) Ur MDMA Scrn (Ecstasy) Negative (Negative) U Benzodiazepines Scrn Positive H (Negative) Urine Cocaine Screen Negative (Negative) U Marijuana (THC) Screen Negative (Negative) MDM Narrative Medical decision making narrative: 78-year-old female presents with mental status place change roof bolter the course of the day and reported dysuria. Patient was seen a few days ago for a fall with head injury. She does take Eliquis after our workup her encephalopathy has no clear etiology. Possibilities include polypharmacy, infectious versus other. The patient comes from a assisted living facility and is clearly too much for them to handle. She cannot be safely discharged to the facility that sent her here. Patient requires hospitalization for further evaluation of her underlying condition Discharge Plan Departure Patient Disposition: Admitted as Observation Clinical Impression: Acute metabolic encephalopathy Discharge Date/Time: 03/07/19 23:58 Interventions: ED Discharge Assessment Last Done: 03/07/19 23:57 Admit Date/Time: 03/07/19 22:49 Admit Provider: Gume Lr
[2019-03-07 20:09] LABS: Add Manual Diff / Slide Review NO; Basophils Absolute Auto 100 /uL (0-100); Basophils Percent Auto 0.6 % (0-2); Eosinophils Absolute Auto 300 /uL (0-450); Eosinophils Percent Auto 3.2 % (2-4); Hematocrit 37.9 % (36-46); Hemoglobin 12.9 g/dL (12.0-16.0); Lymphocytes Absolute Auto 2100 /uL (1100-4500); Lymphocytes Percent Auto 25.9 % (25-40); Mean Corpuscular Hemoglobin 30.6 PG (26-34); Mean Corpuscular Volume 90.1 fL (80-100); Monocytes Absolute Auto 600 /uL (0-900); Monocytes Percent Auto 7.4 % (3-14); Neutrophils Absolute Auto 5000 /uL (1500-7000); Neutrophils Percent Auto 62.9 % (50-75); Platelet Count 216 X10^3/uL (150-400); Red Blood Cell Count 4.21 X10^6/uL (4.0-5.2); Red Cell Distribution Width 15.2 % (11.6-14.8); White Blood Cell Count 7.9 X10^3/uL (4.5-11.0)
[2019-03-07 20:12] LABS: INR 1.1 (0.9-1.3)
[2019-03-07 20:14] LABS: PTT Partial Thromboplastin Tim 36 SECONDS (26.4-36.2)
[2019-03-07 20:16] LABS: Alanine Aminotransferase 24 IU/L (9-52); Albumin 4.1 g/dL (3.5-5.0); Albumin Globulin Ratio 1.3 (1.0-2.8); Alkaline Phosphatase 110 U/L (38-126); Aspartate Aminotransferase 19 IU/L (14-36); Bilirubin Total 0.5 mg/dL (0.2-1.3); Blood Urea Nitrogen 18 mg/dL (7-17); Calcium 10.1 mg/dL (8.4-10.2); Carbon Dioxide 32 mmol/L (22-32); Chloride 101 mmol/L (98-107); Estimated Glomerular Filt Rate 27.3 mL/min (>60); Globulin 3.1 g/dL (1.7-4.1); Glucose 114 mg/dL (80-110); HEMOLYSIS < 15 (0-50); Potassium 3.5 mmol/L (3.4-5.1); Sodium 141 mmol/L (137-145); Total Protein 7.2 g/dL (6.3-8.2)
[2019-03-07 20:28] LABS: Troponin I < 0.012 ng/mL (0.01-0.034)
[2019-03-07 21:00] LABS: Procalcitonin < 0.05 ng/mL (<0.5)
[2019-03-07 21:00] LABS: Lactate (Lactic Acid) 1.5 mmol/L (0.7-2.1)
[2019-03-07 21:10] VITALS: BP 158/76; PULSE 63; RESP 17; O2SAT 95
[2019-03-07 21:11] LABS: RBC Urine None Seen (0-5/HPF)
[2019-03-07 21:12] LABS: Appearance Urine UA CLEAR; Bilirubin Urine UA NEGATIVE (NEGATIVE); Color Urine UA YELLOW; Glucose Urine UA NEGATIVE (Negative); Ketones Urine UA NEGATIVE (NEGATIVE); Leukocyte Esterase Urine UA 2+ (NEGATIVE); Nitrite Urine UA NEGATIVE (Negative); Occult Blood Urine UA NEGATIVE (Negative); Protein Urine UA NEGATIVE (Negative); Specific Gravity Urine UA 1.015 (1.000-1.035); Urobilinogen Urine UA 0.2 E.U./dL (0.2)
[2019-03-07 21:21] LABS: WBC Urine 1-5/HPF (0-5/HPF)
[2019-03-07 21:22] LABS: Bacteria Urine Occasional (0-1); Culture Indicated Urine Specimen Cultured
[2019-03-07 22:07] VITALS: BP 116/41; PULSE 42; O2SAT 94
[2019-03-07] MEDS: CEFAZOLIN 1 GM/50 ML FROZ.PIGGY IV (23:16)
--- NOTE | 2019-03-07 23:40 | PC.NURSE ---
attempted to call report,RN will call back
[2019-03-07 23:57] VITALS: PULSE 58; O2SAT 96
[2019-03-08] VITALS (10 sets, daily range): BP systolic 141–167; BP diastolic 54–75; PULSE 63–83; RESP 16–20; TEMP 36.3–36.8; O2SAT 94–97; BMI 45.8
[2019-03-08 00:28] LABS: Urine Amphetamines Negative (Negative); Urine Barbiturates Negative (Negative); Urine Benzodiazepines Positive (Negative); Urine Cocaine Negative (Negative); Urine MDMA Negative (Negative); Urine Methadone Negative (Negative); Urine Methamphetamines Negative (Negative); Urine Morphine/Opi cutoff 2000 Negative (Negative); Urine Oxycodone Negative (Negative); Urine Phencyclidine Negative (Negative); Urine Tetrahydrocannabinol Negative (Negative); Urine Tricyclic Antidepressant Negative (Negative)
--- NOTE | 2019-03-08 00:50 | PM.HP.1 ---
History of Present Illness Date Patient Seen: 03/08/19 Time Patient Seen: 00:50 Chief complaint: Altered Mental Status Narrative: Patient is being admitted for acute metabolic encephalopathy The patient is a 78-year-old female with PMH of HTN, DM 2T, CVA, PE, chronic anticoagulation with Eliquis, CKD IV, venous insufficiency, recurrent UTIs, depression, and chronic pain syndrome. Patient presented to the ED via EMS on 03/07/2018 out of concern for altered mental status. Specifically patient is noted to be somnolent. Symptom onset is noted to be 12 hours prior to ED presentation (8 am on 03/07, respectively). GCS on ED presentation noted to be 12. Spoke to patient's care staff at [facility] who stated that she found patient extremely somnolent and difficult to arouse at approximately 3 in the afternoon on 03/07/2019. Patient was also noted to be incontinent. Review of medication record reveals that the patient has been receiving tramadol 400-500 mg daily over the past two days. The dose appears to be more what she usually received, however, the record is also limited to 03/04/19. She is being screen positive for benzodiazepines on the urine drug screen and Ativan is one of her prn medications; however, I am being told that this patient has not received this medication at all at the facility. 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 Patient was recently seen on 03/04/2019 after a GLF, which resulted in a laceration to her left tibia. During that visit she had an irrigation of the wound and stitching. The wound site was covered with Steri-Strips. The bandage was applied over the Steri-Strips. On arrival to the unit site of injury is secured with Steri-Strips and there is no outer bandage. It is not entirely clear that type of wound care or precautions have been taken to minimize the risk of an infection. Patient is chronically anticoagulated with Eliquis. At time of the event she had a negative CT of her head. She had a repeat CT of the head today that was also unrevealing of any acute findings. A temp of the HPI patient is somnolent; easily arousable. She was oriented to self only. She had difficulty staying awake to maintain conversation; however, was able to follow commands appropriately. Her speech was not slurred or incoherent. She did not complain of any other specific discomfort. She was not able to give a reason that precipitated hospital admission. Resides at [facility]. PCP: Danielle Rodriguez ED presentation, work-up WBC 7.9, HGB 12.9, PLT 216 PT 13, INR 1.1, aPTT 36 Lactate 1.5 NA 131, K 3.5, CL 101, CA 10.1, GLU 114 CO2 32, BUN 18, CR 1.8 liver fx is stable Trop < 0.012, PCT < 0.05 UA... + leukocyte esterase; no nitrate, urine WBC or bacteria UDS + benzodiazepine CT Head, no acute intracranial findings CXR revealed diffuse bilateral reticular pulmonary opacities may represent mild pulmonary edema in the setting of chronic cardiomegaly vs atelectasis Patient History Medical History (Updated 03/08/19 @ 02:21 by SHAUNA Celis) Asthma (Acute) Chronic anticoagulation (Acute) Diabetic neuropathy (Acute) Morbid obesity (Acute) PTSD (post-traumatic stress disorder) (Acute) CVA (cerebral vascular accident) (Acute) Cataract (Acute) Chronic pain (Acute) Depression (Acute) Diabetes (Acute) H/O: hysterectomy (Acute) Hypertension (Acute) Lower extremity edema (Acute) Pulmonary embolism (Acute) Surgical History Hx of appendectomy (Acute) Hx of tonsillectomy (Acute) Hx of total knee arthroplasty (Acute) Family History (Updated 03/08/19 @ 01:26 by SHAUNA Celis) Mother No known health problems Father Lung cancer Sister Lung cancer Tobacco dependence Social History household members: caregiver Smoking Status: Never smoker alcohol intake: former Family & Social History Social History: household members caregiver Safety & Behavioral: Feels Safe in Current Yes Environment Been Physically Hurt or No Threatened By a Person Tobacco & Substance use: Smoking Status Former smoker, 15 pack year history, quit in 1986 alcohol intake former alcohol intake frequency 0-2 drinks per day Substance Use Type does not use Meds Home Medications Medication Instructions Recorded Confirmed Type Flovent Diskus 100 mcg INH BIDP PRN #0 09/08/16 03/07/19 History lamotrigine [Lamictal] 300 mg PO QDAY #0 09/08/16 03/07/19 History docusate sodium 200 mg PO QDAYP PRN #0 07/10/17 03/07/19 History atorvastatin 40 mg PO QPM #0 01/18/18 03/07/19 History Novolog Flexpen U-100 Insulin See Rx Instructions .ROUTE .COMPLEX 04/01/18 03/07/19 History ascorbic acid (vitamin C) [Vitamin 500 mg PO DAILY 04/01/18 03/07/19 History C] furosemide [Lasix] 40 mg PO BID 04/01/18 03/07/19 History erythromycin 0.5 inch EYE-LEFT DAILY 08/08/18 03/07/19 History latanoprost 1 drp EYE-RIGHT DAILY 08/08/18 03/07/19 History sertraline [Zoloft] 50 mg PO BEDTIME #30 tab 08/12/18 03/07/19 Rx Eucerin Original 1 applic TOPICAL BID 08/13/18 03/07/19 History Lac-Hydrin Lotion 12% 1 applic TOPICAL BID 08/13/18 03/07/19 History cholecalciferol (vitamin D3) 1,000 unit PO DAILY 08/13/18 03/07/19 History [Vitamin D3] glipizide 10 mg PO BID 08/13/18 03/07/19 History acetaminophen 650 mg PO Q6H PRN 03/07/19 03/07/19 History albuterol sulfate [ProAir HFA] 2 puff INHALATION Q4-6H PRN 03/07/19 03/07/19 History apixaban [Eliquis] 2.5 mg PO DAILY 03/07/19 03/07/19 History gabapentin 100 mg PO TID 03/07/19 03/07/19 History guaifenesin [Cough Syrup] 10 ml PO Q4H PRN 03/07/19 03/07/19 History insulin glargine [Lantus Solostar 10 unit SUBCUT BID 03/07/19 03/07/19 History U-100 Insulin] lidocaine 1 patch TOPICAL DAILY 03/07/19 03/07/19 History loratadine [Claritin] 10 mg PO DAILY 03/07/19 03/07/19 History lorazepam [Ativan] 1 mg PO Q4HR 03/07/19 03/07/19 History tramadol 50 mg PO Q4H 03/07/19 03/07/19 History trazodone 50 mg PO BEDTIME PRN 03/07/19 03/07/19 History Allergies Allergy/AdvReac Type Severity Reaction Status Date / Time Iodine and Iodide Containing Allergy Intermediate i get Verified 03/07/19 20:01 Produc spots all [IODINE AND IODIDE over my CONTAINING PRODUC] body Penicillins [PENICILLINS] Allergy Intermediate makes my Verified 03/07/19 20:01 bones and joints ache aspirin [ASPIRIN] Allergy Unknown Verified 03/07/19 20:01 meclizine [MECLIZINE] Allergy Unknown Verified 03/07/19 20:01 codeine [CODEINE] AdvReac Unknown gives me Verified 03/07/19 20:01 bloody nightmares potassium [POTASSIUM] AdvReac Unknown Verified 03/07/19 20:01 Review of Systems Review of Systems Denies chest pain and palpitations. Blind in the left eye. Diminished vision in the right eye. Denies dizziness. Denies shortness of breath, both at rest and with exertion. Reports chronic peripheral edema, does not think the swelling has been worse. She is having left lower extremity discomfort. Reports chronic back pain. reports stable appetite and weight. Denies abdominal pain, nausea, vomiting, and diarrhea. She notes urinary frequency. All systems reviewed & are unremarkable except as noted in HPI and below Exam Vital Signs (past 8 hours): - 03/07/19 20:01 03/07/19 21:10 03/07/19 22:07 Temperature 98.6 F Pulse Rate 85 63 42 L Respiratory Rate 15 17 Blood Pressure 153/65 H Blood Pressure [Left Arm] 158/76 H 116/41 L Pulse Oximetry 96 95 94 03/07/19 23:57 03/08/19 00:05 Temperature 97.8 F Pulse Rate 58 L 63 Respiratory Rate 19 Blood Pressure 167/67 H Blood Pressure [Left Arm] Pulse Oximetry 96 96 Oxygen Delivery Method Room Air Oxygen Flow Rate 0 Narrative Exam Narrative: Constitutional: NAD, morbidly obese habitus BMI 45 Neurologic: Somnolent. Arousable to verbal and tactile stimuli. Alert to self only Unable to tell me where she is at. Believes she may be in the hospital due to UTI. Reports to have sustained a recent fall. No tremor. No dysarthria or aphasia. No tremor. Head: NC, left aspect of the face is remarkable for bruising that is in different stages of healing. Eyes: Pupils equal and sluggish. Gaze conjugate. No scleral icterus. Slight blepharitis (left). Ears: external ears normal, no otorrhea, hearing appears to be intact Nose: external nose normal, no rhinorrhea; there is a dark red residue around patient's left nostril; no overt epistaxis Throat: dry MM, oropharynx w/o exudate, poor oral hygiene Neck: Neck is thick without tenderness, adequate range of motion Chest / Respiratory: equal chest rise, unlabored respiratory effort, no tachypnea, RR 14-16, breath sounds diminished bilaterally, on room air Heart / CV: S1S2, no murmur Abdomen / GI: Mika for central obesity, NT, ND, + BS, organomegaly difficult to determine secondary to obese abdominal contour : no suprapubic tenderness, no Salgado catheter present Peripheral / Vascular: Bilateral venous stasis, marked redness / demarcation noted (present b/l), LLE does not appear to be more edematous than RLE. pedal pulses 1+ but palpable lipodermatosclerosis / stasis dermatitis, no exudate, some scaling and crusting, no venous or arterial ulcers noted; RLE with mild-to-mod tenderness near site of injury Musc: ROM is diminished BLE Skin: RLE wound, no drainage, dry blood and steri strips; mycotic toes Objective Labs Result Diagrams: 03/07/19 20:04 03/07/19 20:04 Labs: Laboratory Results - last 24 hr 03/07/19 03/07/19 03/07/19 20:04 20:04 20:04 WBC 7.9 RBC 4.21 Hgb 12.9 Hct 37.9 MCV 90.1 MCH 30.6 MCHC 34.0 RDW 15.2 H Plt Count 216 Neut % (Auto) 62.9 Lymph % (Auto) 25.9 [place] % (Auto) 7.4 Eos % (Auto) 3.2 Baso % (Auto) 0.6 Neut # (Auto) 5000 Lymph # (Auto) 2100 [place] # (Auto) 600 Eos # (Auto) 300 Baso # (Auto) 100 PT 13.0 H INR 1.1 APTT 36 D Sodium 141 Potassium 3.5 Chloride 101 Carbon Dioxide 32 BUN 18 H Creatinine 1.80 H Estimated GFR 27.3 L BUN/Creatinine Ratio 10.0 Glucose 114 H D Lactate Calcium 10.1 Total Bilirubin 0.5 AST 19 ALT 24 Alkaline Phosphatase 110 Troponin I < 0.012 Total Protein 7.2 Albumin 4.1 Globulin 3.1 Albumin/Globulin Ratio 1.3 Procalcitonin Urine Color Urine Appearance Urine pH Ur Specific [place] Urine Protein Urine Glucose (UA) Urine Ketones Urine Occult Blood Urine Nitrate Urine Bilirubin Urine Urobilinogen Ur Leukocyte Esterase Urine RBC Urine WBC Urine Bacteria Ur Culture Indicated? Urine Opiates Screen Ur Oxycodone Screen Urine Methadone Screen Ur Barbiturates Screen U Tricyclic Antidepress Ur Phencyclidine Scrn Ur Amphetamines Screen U Methamphetamines Scrn Ur MDMA Scrn (Ecstasy) U Benzodiazepines Scrn Urine Cocaine Screen U Marijuana (THC) Screen 03/07/19 03/07/19 03/07/19 20:04 20:30 21:06 WBC RBC Hgb Hct MCV MCH MCHC RDW Plt Count Neut % (Auto) Lymph % (Auto) [place] % (Auto) Eos % (Auto) Baso % (Auto) Neut # (Auto) Lymph # (Auto) [place] # (Auto) Eos # (Auto) Baso # (Auto) PT INR APTT Sodium Potassium Chloride Carbon Dioxide BUN Creatinine Estimated GFR BUN/Creatinine Ratio Glucose Lactate 1.5 Calcium Total Bilirubin AST ALT Alkaline Phosphatase Troponin I Total Protein Albumin Globulin Albumin/Globulin Ratio Procalcitonin < 0.05 Urine Color Yellow Urine Appearance Clear Urine pH 7.0 Ur Specific [place] 1.015 Urine Protein Negative Urine Glucose (UA) Negative Urine Ketones Negative Urine Occult Blood Negative Urine Nitrate Negative Urine Bilirubin Negative Urine Urobilinogen 0.2 Ur Leukocyte Esterase 2+ H Urine RBC None seen Urine WBC 1-5/hpf Urine Bacteria Occasional (0-1) Ur Culture Indicated? Specimen cultured Urine Opiates Screen Ur Oxycodone Screen Urine Methadone Screen Ur Barbiturates Screen U Tricyclic Antidepress Ur Phencyclidine Scrn Ur Amphetamines Screen U Methamphetamines Scrn Ur MDMA Scrn (Ecstasy) U Benzodiazepines Scrn Urine Cocaine Screen U Marijuana (THC) Screen 03/08/19 00:18 WBC RBC Hgb Hct MCV MCH MCHC RDW Plt Count Neut % (Auto) Lymph % (Auto) [place] % (Auto) Eos % (Auto) Baso % (Auto) Neut # (Auto) Lymph # (Auto) [place] # (Auto) Eos # (Auto) Baso # (Auto) PT INR APTT Sodium Potassium Chloride Carbon Dioxide BUN Creatinine Estimated GFR BUN/Creatinine Ratio Glucose Lactate Calcium Total Bilirubin AST ALT Alkaline Phosphatase Troponin I Total Protein Albumin Globulin Albumin/Globulin Ratio Procalcitonin Urine Color Urine Appearance Urine pH Ur Specific [place] Urine Protein Urine Glucose (UA) Urine Ketones Urine Occult Blood Urine Nitrate Urine Bilirubin Urine Urobilinogen Ur Leukocyte Esterase Urine RBC Urine WBC Urine Bacteria Ur Culture Indicated? Urine Opiates Screen Negative Ur Oxycodone Screen Negative Urine Methadone Screen Negative Ur Barbiturates Screen Negative U Tricyclic Antidepress Negative Ur Phencyclidine Scrn Negative Ur Amphetamines Screen Negative U Methamphetamines Scrn Negative Ur MDMA Scrn (Ecstasy) Negative U Benzodiazepines Scrn Positive H Urine Cocaine Screen Negative U Marijuana (THC) Screen Negative Assessment & Plan Assessment & Plan narrative: Acute metabolic encephalopathy, acute, present on admission, active Likely secondary to opioid toxicity and concurrent use of other HUMANITIES TEACHER depressing medications. - received tramadol 400-500 mg daily for 48 hours prior to ED presentation, CrCl 25 (per cockcroft-Gault, 40% adjustment for obesity) maximum dosing for immediate release formulation is 200 mg daily and a dosing interval of 12 hours - Lamictal, gabapentin, Seroquel, and trazodone adequately does; will hold off on resuming these medications until patient's mentation improved - neuro checks every 4 hours - UA and CXR not indicative of an infection process. WBC, PCT, and lactate WNL. - LLE wound, does not appear to reflect cellulitis; however, she did receive Ancef in ED and blood cx pending Opioid poisoning, acute, unintentional, present on admission, active - suspected to be secondary to a dose higher than recommended per patient's creatinine clearance, dose should be limited to 50-100 mg q.12 hours - this particular patient had similar events in the past. She continues to be at high risk for recurrence due to underlying advanced CKD and concurrent use of SSRIs and other HUMANITIES TEACHER depressing agents - not given Narcan in the ED and did not appear to have degree of somnolence that would require Narcan upon admission to the unit, cardiac and respiratory monitoring initiated - urine drug screen did not reveal presence of opioids because tramadol is not a medication that is being checked for in the urine drug screen done by the hospital, I have verified this with the lab. Half-life of this medication is typically 4-6 hours, maybe a bit longer given patient's reduced renal function and creatinine clearance Stasis dermatitis, chronic, present on admission, stasis dermatitis vs cellulitis ? - h/o chronically edematous lower extremities. There is a degree of chronic inflammation, erythema fibrosis, lipodermatosclerosis - no fever, WBC and lactate WNL, no streaks, localized to both BLE, no purulence - received a dose of Ancef in the ED, will hold further abx therapy - resume PT regimen of Lasix 40 mg QD in an effort to reduce peripheral edema, consider increasing to BID - patient would benefit from an unna boot or a compression wrap - will check cbc in am Chronic anticoagulation, chronic condition, present on admission, inadequate anti-coagulation - Resume PATIENT ACCOUNT SPECIALIST regimen of Eliquis 2.5 mg b.i.d. for a history of PE Efficacy of the medication in this particular patient is questionable as Eliquis is not recommended for patients with BMI over 40 (pt's BMI is 45) or CrCL < 25 (pt's CrCl is 25 ml/min). Need to measure peak and trough levels using an anti-factor Xa assay arm aspect term a tree, which I do not think is a resource available to us. Patient was previously on Xarelto 15 mg b.i.d. at least until Aug, however it is not known why she was changed to Eliquis. Abnormal urine drug screen, acute, present on admission, resolved - positive for benzodiazepines. Checked with [facility] patient has not been receiving benzodiazepines. It is possible that that they result is false-positive, most likely would be related to use of Zoloft. To know for sure would need to have a lab w/ further confirmation. This is not necessary at this time. CKD Stage IV, chronic, present on admission, sCr 1.8 (at baseline) - trend renal function, avoid hypotension, optimize renal perfusion, renally dose medications, avoid nephrotoxic medications - obtain a bmp in am IDDM Type 2, chronic condition, present on admission, uncontrolled (A1C 8.9% on 08/2018) PATIENT ACCOUNT SPECIALIST on glipizide 10 mg BID, Lantus Solostar 10 units BID, and Humalog SSI - AC / HS - Hold glipizide while inpatient, resume at discharge - Resume PATIENT ACCOUNT SPECIALIST lantus and SSI (medium dose regimen) - carb consistent diet Hyperlipidemia, chronic condition, present on admission, stable - Resume PATIENT ACCOUNT SPECIALIST regimen of statin 40 mg QD Lower extremity edema (b/l), chronic, present on admission, w/ evidence of inflammation - Resume PATIENT ACCOUNT SPECIALIST regimen of Lasix 40 mg QD. Trend patient's volume status, consider increasing dose to b.i.d.. Patient is full code. POLST document was provided. Patient did not wish to provide a designated surrogate decision maker at this time PATIENT ACCOUNT SPECIALIST medications reviewed and reconciled accordingly
--- NOTE | 2019-03-08 00:58 | P.HP_ITS ---
History of Present Illness Date Patient Seen: 03/08/19 Time Patient Seen: 00:50 Chief complaint: Altered Mental Status Narrative: Patient is being admitted for acute metabolic encephalopathy The patient is a 78-year-old female with PMH of HTN, DM 2T, CVA, PE, chronic anticoagulation with Eliquis, CKD IV, venous insufficiency, recurrent UTIs, depression, and chronic pain syndrome. Patient presented to the ED via EMS on 03/07/2018 out of concern for altered mental status. Specifically patient is noted to be somnolent. Symptom onset is noted to be 12 hours prior to ED presentation (8 am on 03/07, respectively). GCS on ED presentation noted to be 12. Spoke to patient's care staff at [facility] who stated that she found patient extremely somnolent and difficult to arouse at approximately 3 in the afternoon on 03/07/2019. Patient was also noted to be incontinent. Review of medication record reveals that the patient has been receiving tramadol 400-500 mg daily over the past two days. The dose appears to be more what she usually received, however, the record is also limited to 03/04/19. She is being screen positive for benzodiazepines on the urine drug screen and Ativan is one of her prn medications; however, I am being told that this patient has not re ceived this medication at all at the facility. Her other medications with potential for CLINICAL DOCUMENTATION SPEC depression include Lamictal 300 mg QD, trazodone 50 mg QHS, seroquel 50 mg BID, and gabapentin 100 mg TID. Patient was recently seen on 03/04/2019 after a GLF, which resulted in a laceration to her left tibia. During that visit she had an irrigation of the wound and stitching. The wound site was covered with Steri-Strips. The bandage was applied over the Steri-Strips. On arrival to the unit site of injury is secured with Steri-Strips and there is no outer bandage. It is not entirely clear that type of wound care or precautions have been taken to minimize the risk of an infection. Patient is chronically anticoagulated with Eliquis. At time of the event she had a negative CT of her head. She had a repeat CT of the head today that was also unrevealing of any acute findings. A temp of the HPI patient is somnolent; easily arousable. She was oriented to self only. She had difficulty staying awake to maintain conversation; however, was able to follow commands appropriately. Her speech was not slurred or incoherent. She did not complain of any other specific discomfort. She was not able to give a reason that precipitated hospital admission. Resides at [facility]. PCP: Danielle Rodriguez ED presentation, work-up WBC 7.9, HGB 12.9, PLT 216 PT 13, INR 1.1, aPTT 36 Lactate 1.5 NA 131, K 3.5, CL 101, CA 10.1, GLU 114 CO2 32, BUN 18, CR 1.8 liver fx is stable Trop < 0.012, PCT < 0.05 UA... + leukocyte esterase; no nitrate, urine WBC or bacteria UDS + benzodiazepine CT Head, no acute intracranial findings CXR revealed diffuse bilateral reticular pulmonary opacities may represent mild pulmonary edema in the setting of chronic cardiomegaly vs atelectasis Patient History Medical History (Updated 03/08/19 @ 02:21 by SHAUNA Celis) Asthma (Acute) Chronic anticoagulation (Acute) Diabetic neuropathy (Acute) Morbid obesity (Acute) PTSD (post-traumatic stress disorder) (Acute) CVA (cerebral vascular accident) (Acute) Cataract (Acute) Chronic pain (Acute) Depression (Acute) Diabetes (Acute) H/O: hysterectomy (Acute) Hypertension (Acute) Lower extremity edema (Acute) Pulmonary embolism (Acute) Surgical History Hx of appendectomy (Acute) Hx of tonsillectomy (Acute) Hx of total knee arthroplasty (Acute) Family History (Updated 03/08/19 @ 01:26 by SHAUNA Celis) Mother No known health problems Father Lung cancer Sister Lung cancer Tobacco dependence Social History household members: caregiver Smoking Status: Never smoker alcohol intake: former Family & Social History Social History: household members caregiver Safety & Behavioral: Feels Safe in Current Yes Environment Been Physically Hurt or No Threatened By a Person Tobacco & Substance use: Smoking Status Former smoker, 15 pack year history, quit in 1986 alcohol intake former alcohol intake frequency 0-2 drinks per day Substance Use Type does not use Meds Home Medications Medication Instructions Recorded Confirmed Type Flovent Diskus 100 mcg INH BIDP PRN #0 09/08/16 03/07/19 History lamotrigine [Lamictal] 300 mg PO QDAY #0 09/08/16 03/07/19 History docusate sodium 200 mg PO QDAYP PRN #0 07/10/17 03/07/19 History atorvastatin 40 mg PO QPM #0 01/18/18 03/07/19 History Novolog Flexpen U-100 Insulin See Rx Instructions .ROUTE .COMPLEX 04/01/18 03/07/19 History ascorbic acid (vitamin C) [Vitamin 500 mg PO DAILY 04/01/18 03/07/19 History C] furosemide [Lasix] 40 mg PO BID 04/01/18 03/07/19 History erythromycin 0.5 inch EYE-LEFT DAILY 08/08/18 03/07/19 History latanoprost 1 drp EYE-RIGHT DAILY 08/08/18 03/07/19 History sertraline [Zoloft] 50 mg PO BEDTIME #30 tab 08/12/18 03/07/19 Rx Eucerin Original 1 applic TOPICAL BID 08/13/18 03/07/19 History Lac-Hydrin Lotion 12% 1 applic TOPICAL BID 08/13/18 03/07/19 History cholecalciferol (vitamin D3) 1,000 unit PO DAILY 08/13/18 03/07/19 History [Vitamin D3] glipizide 10 mg PO BID 08/13/18 03/07/19 History acetaminophen 650 mg PO Q6H PRN 03/07/19 03/07/19 History albuterol sulfate [ProAir HFA] 2 puff INHALATION Q4-6H PRN 03/07/19 03/07/19 History apixaban [Eliquis] 2.5 mg PO DAILY 03/07/19 03/07/19 History gabapentin 100 mg PO TID 03/07/19 03/07/19 History guaifenesin [Cough Syrup] 10 ml PO Q4H PRN 03/07/19 03/07/19 History insulin glargine [Lantus Solostar 10 unit SUBCUT BID 03/07/19 03/07/19 History U-100 Insulin] lidocaine 1 patch TOPICAL DAILY 03/07/19 03/07/19 History loratadine [Claritin] 10 mg PO DAILY 03/07/19 03/07/19 History lorazepam [Ativan] 1 mg PO Q4HR 03/07/19 03/07/19 History tramadol 50 mg PO Q4H 03/07/19 03/07/19 History trazodone 50 mg PO BEDTIME PRN 03/07/19 03/07/19 History Allergies Allergy/AdvReac Type Severity Reaction Status Date / Time Iodine and Iodide Containing Allergy Intermediate i get Verified 03/07/19 20:01 Produc spots all [IODINE AND IODIDE over my CONTAINING PRODUC] body Penicillins [PENICILLINS] Allergy Intermediate makes my Verified 03/07/19 20:01 bones and joints ache aspirin [ASPIRIN] Allergy Unknown Verified 03/07/19 20:01 meclizine [MECLIZINE] Allergy Unknown Verified 03/07/19 20:01 codeine [CODEINE] AdvReac Unknown gives me Verified 03/07/19 20:01 bloody nightmares potassium [POTASSIUM] AdvReac Unknown Verified 03/07/19 20:01 Review of Systems Review of Systems Denies chest pain and palpitations. Blind in the left eye. Diminished vision in the right eye. Denies dizziness. Denies shortness of breath, both at rest and with exertion. Reports chronic peripheral edema, does not think the swelling has been worse. She is having left lower extremity discomfort. Reports chronic back pain. reports stable appetite and weight. Denies abdominal pain, nausea, vomiting, and diarrhea. She notes urinary frequency. All systems reviewed & are unremarkable except as noted in HPI and below Exam Vital Signs (past 8 hours): - 03/07/19 20:01 03/07/19 21:10 03/07/19 22:07 Temperature 98.6 F Pulse Rate 85 63 42 L Respiratory Rate 15 17 Blood Pressure 153/65 H Blood Pressure [Left Arm] 158/76 H 116/41 L Pulse Oximetry 96 95 94 03/07/19 23:57 03/08/19 00:05 Temperature 97.8 F Pulse Rate 58 L 63 Respiratory Rate 19 Blood Pressure 167/67 H Blood Pressure [Left Arm] Pulse Oximetry 96 96 Oxygen Delivery Method Room Air Oxygen Flow Rate 0 Narrative Exam Narrative: Constitutional: NAD, morbidly obese habitus BMI 45 Neurologic: Somnolent. Arousable to verbal and tactile stimuli. Alert to self only Unable to tell me where she is at. Believes she may be in the hospital due to UTI. Reports to have sustained a recent fall. No tremor. No dysarthria or aphasia. No tremor. Head: NC, left aspect of the face is remarkable for bruising that is in different stages of healing. Eyes: Pupils equal and sluggish. Gaze conjugate. No scleral icterus. Slight blepharitis (left). Ears: external ears normal, no otorrhea, hearing appears to be intact Nose: external nose normal, no rhinorrhea; there is a dark red residue around patient's left nostril; no overt epistaxis Throat: dry MM, oropharynx w/o exudate, poor oral hygiene Neck: Neck is thick without tenderness, adequate range of motion Chest / Respiratory: equal chest rise, unlabored respiratory effort, no tachypnea, RR 14-16, breath sounds diminished bilaterally, on room air Heart / CV: S1S2, no murmur Abdomen / GI: Mika for central obesity, NT, ND, + BS, organomegaly difficult to determine secondary to obese abdominal contour : no suprapubic tenderness, no Salgado catheter present Peripheral / Vascular: Bilateral venous stasis, marked redness / demarcation noted (present b/l), LLE does not appear to be more edematous than RLE. pedal pulses 1+ but palpable lipodermatosclerosis / stasis dermatitis, no exudate, some scaling and crusting, no venous or arterial ulcers noted; RLE with mild-to-mod tenderness near site of injury Musc: ROM is diminished BLE Skin: RLE wound, no drainage, dry blood and steri strips; mycotic toes Objective Labs Result Diagrams: 03/07/19 20:04 03/07/19 20:04 Labs: Laboratory Results - last 24 hr 03/07/19 03/07/19 03/07/19 20:04 20:04 20:04 WBC 7.9 RBC 4.21 Hgb 12.9 Hct 37.9 MCV 90.1 MCH 30.6 MCHC 34.0 RDW 15.2 H Plt Count 216 Neut % (Auto) 62.9 Lymph % (Auto) 25.9 Cherry % (Auto) 7.4 Eos % (Auto) 3.2 Baso % (Auto) 0.6 Neut # (Auto) 5000 Lymph # (Auto) 2100 [place] # (Auto) 600 Eos # (Auto) 300 Baso # (Auto) 100 PT 13.0 H INR 1.1 APTT 36 D Sodium 141 Potassium 3.5 Chloride 101 Carbon Dioxide 32 BUN 18 H Creatinine 1.80 H Estimated GFR 27.3 L BUN/Creatinine Ratio 10.0 Glucose 114 H D Lactate Calcium 10.1 Total Bilirubin 0.5 AST 19 ALT 24 Alkaline Phosphatase 110 Troponin I < 0.012 Total Protein 7.2 Albumin 4.1 Globulin 3.1 Albumin/Globulin Ratio 1.3 Procalcitonin Urine Color Urine Appearance Urine pH Ur Specific Vernon Urine Protein Urine Glucose (UA) Urine Ketones Urine Occult Blood Urine Nitrate Urine Bilirubin Urine Urobilinogen Ur Leukocyte Esterase Urine RBC Urine WBC Urine Bacteria Ur Culture Indicated? Urine Opiates Screen Ur Oxycodone Screen Urine Methadone Screen Ur Barbiturates Screen U Tricyclic Antidepress Ur Phencyclidine Scrn Ur Amphetamines Screen U Methamphetamines Scrn Ur MDMA Scrn (Ecstasy) U Benzodiazepines Scrn Urine Cocaine Screen U Marijuana (THC) Screen 03/07/19 03/07/19 03/07/19 20:04 20:30 21:06 WBC RBC Hgb Hct MCV MCH MCHC RDW Plt Count Neut % (Auto) Lymph % (Auto) Cherry % (Auto) Eos % (Auto) Baso % (Auto) Neut # (Auto) Lymph # (Auto) [place] # (Auto) Eos # (Auto) Baso # (Auto) PT INR APTT Sodium Potassium Chloride Carbon Dioxide BUN Creatinine Estimated GFR BUN/Creatinine Ratio Glucose Lactate 1.5 Calcium Total Bilirubin AST ALT Alkaline Phosphatase Troponin I Total Protein Albumin Globulin Albumin/Globulin Ratio Procalcitonin < 0.05 Urine Color Yellow Urine Appearance Clear Urine pH 7.0 Ur Specific [place] 1.015 Urine Protein Negative Urine Glucose (UA) Negative Urine Ketones Negative Urine Occult Blood Negative Urine Nitrate Negative Urine Bilirubin Negative Urine Urobilinogen 0.2 Ur Leukocyte Esterase 2+ H Urine RBC None seen Urine WBC 1-5/hpf Urine Bacteria Occasional (0-1) Ur Culture Indicated? Specimen cultured Urine Opiates Screen Ur Oxycodone Screen Urine Methadone Screen Ur Barbiturates Screen U Tricyclic Antidepress Ur Phencyclidine Scrn Ur Amphetamines Screen U Methamphetamines Scrn Ur MDMA Scrn (Ecstasy) U Benzodiazepines Scrn Urine Cocaine Screen U Marijuana (THC) Screen 03/08/19 00:18 WBC RBC Hgb Hct MCV MCH MCHC RDW Plt Count Neut % (Auto) Lymph % (Auto) Cherry % (Auto) Eos % (Auto) Baso % (Auto) Neut # (Auto) Lymph # (Auto) Cherry # (Auto) Eos # (Auto) Baso # (Auto) PT INR APTT Sodium Potassium Chloride Carbon Dioxide BUN Creatinine Estimated GFR BUN/Creatinine Ratio Glucose Lactate Calcium Total Bilirubin AST ALT Alkaline Phosphatase Troponin I Total Protein Albumin Globulin Albumin/Globulin Ratio Procalcitonin Urine Color Urine Appearance Urine pH Ur Specific [place] Urine Protein Urine Glucose (UA) Urine Ketones Urine Occult Blood Urine Nitrate Urine Bilirubin Urine Urobilinogen Ur Leukocyte Esterase Urine RBC Urine WBC Urine Bacteria Ur Culture Indicated? Urine Opiates Screen Negative Ur Oxycodone Screen Negative Urine Methadone Screen Negative Ur Barbiturates Screen Negative U Tricyclic Antidepress Negative Ur Phencyclidine Scrn Negative Ur Amphetamines Screen Negative U Methamphetamines Scrn Negative Ur MDMA Scrn (Ecstasy) Negative U Benzodiazepines Scrn Positive H Urine Cocaine Screen Negative U Marijuana (THC) Screen Negative Assessment & Plan Assessment & Plan narrative: Acute metabolic encephalopathy, acute, present on admission, active Likely secondary to opioid toxicity and concurrent use of other CLINICAL DOCUMENTATION SPEC depressing medications. - received tramadol 400-500 mg daily for 48 hours prior to ED presentation, CrCl 25 (per cockcroft-Gault, 40% adjustment for obesity) maximum dosing for immediate release formulation is 200 mg daily and a dosing interval of 12 hours - Lamictal, gabapentin, Seroquel, and trazodone adequately does; will hold off on resuming these medications until patient's mentation improved - neuro checks every 4 hours - UA and CXR not indicative of an infection process. WBC, PCT, and lactate WNL. - LLE wound, does not appear to reflect cellulitis; however, she did receive Ancef in ED and blood cx pending Opioid poisoning, acute, unintentional, present on admission, active - suspected to be secondary to a dose higher than recommended per patient's creatinine clearance, dose should be limited to 50-100 mg q.12 hours - this particular patient had similar events in the past. She continues to be at high risk for recurrence due to underlying advanced CKD and concurrent use of SSRIs and other CLINICAL DOCUMENTATION SPEC depressing agents - not given Narcan in the ED and did not appear to have degree of somnolence that would require Narcan upon admission to the unit, cardiac and respiratory monitoring initiated - urine drug screen did not reveal presence of opioids because tramadol is not a medication that is being checked for in the urine drug screen done by the hospital, I have verified this with the lab. Half-life of this medication is typically 4-6 hours, maybe a bit longer given patient's reduced renal function and creatinine clearance Stasis dermatitis, chronic, present on admission, stasis dermatitis vs cellulitis ? - h/o chronically edematous lower extremities. There is a degree of chronic inflammation, erythema fibrosis, lipodermatosclerosis - no fever, WBC and lactate WNL, no streaks, localized to both BLE, no purulence - received a dose of Ancef in the ED, will hold further abx therapy - resume PT regimen of Lasix 40 mg QD in an effort to reduce peripheral edema, consider increasing to BID - patient would benefit from an unna boot or a compression wrap - will check cbc in am Chronic anticoagulation, chronic condition, present on admission, inadequate anti-coagulation - Resume PRIMARY CLINICIAN regimen of Eliquis 2.5 mg b.i.d. for a history of PE Efficacy of the medication in this particular patient is questionable as Eliquis is not recommended for patients with BMI over 40 (pt's BMI is 45) or CrCL < 25 (pt's CrCl is 25 ml/min). Need to measure peak and trough levels using an anti- factor Xa assay arm aspect term a tree, which I do not think is a resource available to us. Patient was previously on Xarelto 15 mg b.i.d. at least until Aug, however it is not known why she was changed to Eliquis. Abnormal urine drug screen, acute, present on admission, resolved - positive for benzodiazepines. Checked with [facility] patient has not been receiving benzodiazepines. It is possible that that they result is false-positive, most likely would be related to use of Zoloft. To know for sure would need to have a lab w/ further confirmation. This is not necessary at this time. CKD Stage IV, chronic, present on admission, sCr 1.8 (at baseline) - trend renal function, avoid hypotension, optimize renal perfusion, renally dose medications, avoid nephrotoxic medications - obtain a bmp in am IDDM Type 2, chronic condition, present on admission, uncontrolled (A1C 8.9% on 08/2018) PRIMARY CLINICIAN on glipizide 10 mg BID, Lantus Solostar 10 units BID, and Humalog SSI - AC / HS - Hold glipizide while inpatient, resume at discharge - Resume PRIMARY CLINICIAN lantus and SSI (medium dose regimen) - carb consistent diet Hyperlipidemia, chronic condition, present on admission, stable - Resume PRIMARY CLINICIAN regimen of statin 40 mg QD Lower extremity edema (b/l), chronic, present on admission, w/ evidence of inflammation - Resume PRIMARY CLINICIAN regimen of Lasix 40 mg QD. Trend patient's volume status, consider increasing dose to b.i.d.. Patient is full code. POLST document was provided. Patient did not wish to provide a designated surrogate decision maker at this time PRIMARY CLINICIAN medications reviewed and reconciled accordingly
--- NOTE | 2019-03-08 03:06 | PC.ADMIT ---
[facility] Admission Note: The patient,Cassie Waddell,78 y/o, was given written information regarding hospital policies, unit procedures and contact persons. Patient's smoking status: Never smoker. Vital Signs - 8 hr 03/07/19 20:01 03/07/19 21:10 03/07/19 22:07 Temperature 98.6 F Pulse Rate 85 63 42 L Respiratory Rate 15 17 Blood Pressure 153/65 H Blood Pressure [Left Arm] 158/76 H 116/41 L Pulse Oximetry 96 95 94 03/07/19 23:57 03/08/19 00:05 Temperature 97.8 F Pulse Rate 58 L 63 Respiratory Rate 19 Blood Pressure 167/67 H Blood Pressure [Left Arm] Pulse Oximetry 96 96 Pt arrived to unit via stretcher, sliderboard used to trans to bed. Wound noted to LLE surrounded by warm erythema. Photos taken with document camera. 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 Bulb call light initiated so pt can make her needs known. Pt has been demonstrating use of call system. Up to bathroom to void. Steady on feet with 1 pa. Urgency and frequency noted. Bed alarm on for safety. Door open for close monitoring.
--- NOTE | 2019-03-08 05:38 | PC.NURSE ---
Dried blood on nose. Washed face. Dried blood remains attached to abrasion on left nare. Notified provider of POLST form in chart indicating full code.
[2019-03-08] MEDS: FUROSEMIDE 40 MG TABLET PO ×2 (08:36→21:09)
[2019-03-08] MEDS: APIXABAN 5 MG TABLET 2.5 MG PO (08:37)
[2019-03-08] MEDS: INSULIN ASPART 100 UNIT/ML INSULN PEN SUBCUT ×4 (08:45→21:12)
[2019-03-08] MEDS: INSULIN GLARGINE 100 UNIT/ML 3ML PEN 10 UNIT SUBCUT ×2 (08:46→21:12)
[2019-03-08 09:00] LABS: Add Manual Diff / Slide Review NO; Basophils Absolute Auto 100 /uL (0-100); Basophils Percent Auto 0.9 % (0-2); Eosinophils Absolute Auto 300 /uL (0-450); Eosinophils Percent Auto 3.3 % (2-4); Hematocrit 38.6 % (36-46); Hemoglobin 13.3 g/dL (12.0-16.0); Lymphocytes Absolute Auto 1600 /uL (1100-4500); Lymphocytes Percent Auto 19.3 % (25-40); Mean Corpuscular HGB Conc 34.4 % (30-36); Mean Corpuscular Hemoglobin 30.5 PG (26-34); Mean Corpuscular Volume 88.6 fL (80-100); Monocytes Absolute Auto 600 /uL (0-900); Monocytes Percent Auto 6.8 % (3-14); Neutrophils Absolute Auto 5800 /uL (1500-7000); Neutrophils Percent Auto 69.7 % (50-75); Platelet Count 225 X10^3/uL (150-400); Red Blood Cell Count 4.36 X10^6/uL (4.0-5.2); Red Cell Distribution Width 14.7 % (11.6-14.8); White Blood Cell Count 8.3 X10^3/uL (4.5-11.0)
[2019-03-08 09:06] LABS: Blood Urea Nitrogen 18 mg/dL (7-17); Calcium 10.2 mg/dL (8.4-10.2); Carbon Dioxide 30 mmol/L (22-32); Chloride 102 mmol/L (98-107); Estimated Glomerular Filt Rate 27.3 mL/min (>60); Glucose 180 mg/dL (80-110); HEMOLYSIS < 15 (0-50); Potassium 3.9 mmol/L (3.4-5.1); Sodium 140 mmol/L (137-145)
--- NOTE | 2019-03-08 14:51 | PC.NURSE ---
1430 Pt has been agitated/aggresive verbally off and on this shift. threatens to hit employees. Pt uncooperative with care instructions reg safety, using call light. Pt is oriented to name, place, time. applied charlene to LLE injury. Pt did not alow the hospitalist to complete her assessmnt. Called MD & RN idiots yelled get out. Reported this to Dheeraj RN.
--- NOTE | 2019-03-08 14:53 | CM.DANOTE ---
Discharge Planning/Care Management DCP: assessment: case received this morning, EMR reviewed and met with pt. She was found sitting up in bed, eating breakfast. Room darkened. Introduced self and role. Pt is a 78 year old female who admitted to care of hospitalist team late last night. Payer: Medicare and [employer]. PCP: corporate safety director at [facility]. Pt confirms her living situation and plans to return to [facility]. She also explains that she is blind, even a bit of light coming around the shade over the window make her eyes hurt. It is noted that pt is on Lamictal, Seroquel, Trazadone adn Gabapentin at baseline and that she was in the ER on 03/04 after falling, hitting her head and leg. She has been on Tramadol as per the H&P and became somnolent at the [facility]. P: follow as dx and POC unfold. Contact Sonya/CHAO and fax over clinical notes/done. Dr. Ahmadi will be seeing pt today. Advanced directive, confirm from FAMILY Start: 03/08/19 01:48 Freq: Q24H Status: Active Protocol: Document 03/08/19 01:37 GMP (Rec: 03/08/19 03:05 GMP [id number]) Advance Directive, confirm on record Time 03:05 Person contacted pt Copy received No Document 03/08/19 09:00 YASMINE (Rec: 03/08/19 11:00 [email or web address] [email or web address]) Advance Directive, confirm on record Time 03:05 Person contacted pt Copy received No CM Discharge Assessment Start: 03/08/19 14:52 Freq: Status: Active Protocol: Document 03/08/19 14:52 ITV (Rec: 03/08/19 14:52 ITV [id number]) Discharge Planning Assessment Advance Directives? Yes: polst/living will & health care directive Advance Directives on File Yes History Provided By Patient Medical Record Prior Living Arrangements Assisted Living Facility Name Admitted From: [facility] Transportation Arrangement Facility van? Whiteboard Updated in Patient Room with Yes name and ext. # of Foundation Director Review Status In Process Next Review Type Continued Stay Review
[2019-03-08] MEDS: CEFAZOLIN 1 GM/50 ML FROZ.PIGGY IV (16:11)
[2019-03-08] MEDS: ACETAMINOPHEN 325 MG TABLET 500 MG PO (16:39)
--- NOTE | 2019-03-08 18:14 | PC.NURSE ---
Addendum entered by Noemi Smallwood R.N. 03/08/19 22:39: New orders for serquel 50mg PO, and sertraline 50mg PO. Pt has not had these meds since 03/06, according to SUSIE from [place]. tylonol for chronic pain to back. Up to BRP for loose, mucoid, formed yellowish brown BM LG, and soiled brief. bed alarm on. Original Note: 1814- Pt reports already received Flu vac at [place], Fall of 2017. Son in to visit pt, pt reported to son, she is ready to go home. alert and confused. 94%RA, LS clear, denies SOB. LAC ABO infused and SL. CBG-210, given 3 units insulin to LLQ. Bilat calf/ankle/feet drythemia with blisters, alevyn to left calf covering wound from fall at [place]. Pt currently up to chair. chair alarm on.
[2019-03-08] MEDS: ATORVASTATIN 20 MG TABLET 40 MG PO (21:09)
[2019-03-08] MEDS: LATANOPROST 0.005% OPHTH 2.5 ML 1 DROPS EYE-RIGHT (21:10)
[2019-03-08] MEDS: QUETIAPINE 25 MG TABLET 50 MG PO (22:34)
[2019-03-08] MEDS: SERTRALINE 50 MG TABLET PO (22:35)
--- NOTE | 2019-03-08 22:57 | PM.PN.1 ---
Subjective Date Patient Seen: 03/08/19 Exam Vital Signs (past 8 hours): - 03/08/19 16:11 03/08/19 17:00 03/08/19 20:02 Temperature 97.4 F L 97.8 F Pulse Rate 65 83 Respiratory Rate 16 20 Blood Pressure 142/66 H 152/75 H Pulse Oximetry 94 94 95 03/08/19 21:00 Temperature Pulse Rate Respiratory Rate Blood Pressure Pulse Oximetry 95 Oxygen Delivery Method Room Air Oxygen Flow Rate 0 Objective Labs Result Diagrams: 03/08/19 08:45 03/08/19 08:45 Labs: Laboratory Results - last 24 hr 03/08/19 03/08/19 03/08/19 00:18 08:45 08:45 WBC 8.3 RBC 4.36 Hgb 13.3 Hct 38.6 MCV 88.6 MCH 30.5 MCHC 34.4 RDW 14.7 Plt Count 225 Neut % (Auto) 69.7 Lymph % (Auto) 19.3 L [place] % (Auto) 6.8 Eos % (Auto) 3.3 Baso % (Auto) 0.9 Neut # (Auto) 5800 Lymph # (Auto) 1600 [place] # (Auto) 600 Eos # (Auto) 300 Baso # (Auto) 100 Sodium 140 Potassium 3.9 Chloride 102 Carbon Dioxide 30 BUN 18 H Creatinine 1.80 H Estimated GFR 27.3 L BUN/Creatinine Ratio 10.0 Glucose 180 H Calcium 10.2 Urine Opiates Screen Negative Ur Oxycodone Screen Negative Urine Methadone Screen Negative Ur Barbiturates Screen Negative U Tricyclic Antidepress Negative Ur Phencyclidine Scrn Negative Ur Amphetamines Screen Negative U Methamphetamines Scrn Negative Ur MDMA Scrn (Ecstasy) Negative U Benzodiazepines Scrn Positive H Urine Cocaine Screen Negative U Marijuana (THC) Screen Negative Assessment & Plan Assessment & Plan narrative: Brief Progress Note: Patient seen and examined. Physical exam unchanged other than patient very abrasive and combative threatening to hit me for no apparent reason. Continues to be encephalopathic. Patient is hemodynamically stable. Continue A/P as outlined by admitting provider. Additionally started empiric antibiotics until blood cultures result. Quality VTE Deep Vein Thrombosis/Pulmonary Embolism Present on Admission: No
--- NOTE | 2019-03-08 23:00 | P.PN_ITS ---
Subjective Date Patient Seen: 03/08/19 Exam Vital Signs (past 8 hours): - 03/08/19 16:11 03/08/19 17:00 03/08/19 20:02 Temperature 97.4 F L 97.8 F Pulse Rate 65 83 Respiratory Rate 16 20 Blood Pressure 142/66 H 152/75 H Pulse Oximetry 94 94 95 03/08/19 21:00 Temperature Pulse Rate Respiratory Rate Blood Pressure Pulse Oximetry 95 Oxygen Delivery Method Room Air Oxygen Flow Rate 0 Objective Labs Result Diagrams: 03/08/19 08:45 03/08/19 08:45 Labs: Laboratory Results - last 24 hr 03/08/19 03/08/19 03/08/19 00:18 08:45 08:45 WBC 8.3 RBC 4.36 Hgb 13.3 Hct 38.6 MCV 88.6 MCH 30.5 MCHC 34.4 RDW 14.7 Plt Count 225 Neut % (Auto) 69.7 Lymph % (Auto) 19.3 L Wilkin % (Auto) 6.8 Eos % (Auto) 3.3 Baso % (Auto) 0.9 Neut # (Auto) 5800 Lymph # (Auto) 1600 Wilkin # (Auto) 600 Eos # (Auto) 300 Baso # (Auto) 100 Sodium 140 Potassium 3.9 Chloride 102 Carbon Dioxide 30 BUN 18 H Creatinine 1.80 H Estimated GFR 27.3 L BUN/Creatinine Ratio 10.0 Glucose 180 H Calcium 10.2 Urine Opiates Screen Negative Ur Oxycodone Screen Negative Urine Methadone Screen Negative Ur Barbiturates Screen Negative U Tricyclic Antidepress Negative Ur Phencyclidine Scrn Negative Ur Amphetamines Screen Negative U Methamphetamines Scrn Negative Ur MDMA Scrn (Ecstasy) Negative U Benzodiazepines Scrn Positive H Urine Cocaine Screen Negative U Marijuana (THC) Screen Negative Assessment & Plan Assessment & Plan narrative: Brief Progress Note: Patient seen and examined. Physical exam unchanged other than patient very abrasive and combative threatening to hit me for no apparent reason. Continues to be encephalopathic. Patient is hemodynamically stable. Continue A/P as outlined by admitting provider. Additionally started empiric antibiotics until blood cultures result. Quality VTE Deep Vein Thrombosis/Pulmonary Embolism Present on Admission: No
[2019-03-09] VITALS (9 sets, daily range): BP systolic 127–154; BP diastolic 60–111; PULSE 59–83; RESP 16; TEMP 36.5–36.8; O2SAT 94–98
[2019-03-09] MEDS: CEFAZOLIN 1 GM/50 ML FROZ.PIGGY IV (04:30)
--- NOTE | 2019-03-09 05:05 | PC.NURSE ---
NOC Note: Pt has been very restless and using the call light 6-10x's/hour to request repositioning and toileting. Pt requesting Tramadol and declined APAP when offered stating that it doesn't work. Pt does not follow directions well and is forgetful.
[2019-03-09 06:57] LABS: Add Manual Diff / Slide Review NO; Basophils Absolute Auto 100 /uL (0-100); Basophils Percent Auto 1.2 % (0-2); Eosinophils Absolute Auto 200 /uL (0-450); Eosinophils Percent Auto 2.8 % (2-4); Hematocrit 36.6 % (36-46); Hemoglobin 12.7 g/dL (12.0-16.0); Lymphocytes Absolute Auto 1800 /uL (1100-4500); Lymphocytes Percent Auto 22.1 % (25-40); Mean Corpuscular HGB Conc 34.7 % (30-36); Mean Corpuscular Hemoglobin 30.7 PG (26-34); Mean Corpuscular Volume 88.4 fL (80-100); Monocytes Absolute Auto 600 /uL (0-900); Monocytes Percent Auto 7.2 % (3-14); Neutrophils Absolute Auto 5400 /uL (1500-7000); Neutrophils Percent Auto 66.7 % (50-75); Platelet Count 264 X10^3/uL (150-400); Red Blood Cell Count 4.14 X10^6/uL (4.0-5.2); Red Cell Distribution Width 14.7 % (11.6-14.8); White Blood Cell Count 8.1 X10^3/uL (4.5-11.0)
[2019-03-09 07:33] LABS: Procalcitonin < 0.05 ng/mL (<0.5)
[2019-03-09] MEDS: INSULIN ASPART 100 UNIT/ML INSULN PEN SUBCUT ×2 (08:53→12:09)
[2019-03-09] MEDS: INSULIN GLARGINE 100 UNIT/ML 3ML PEN 10 UNIT SUBCUT (08:54)
[2019-03-09] MEDS: FUROSEMIDE 40 MG TABLET PO (08:55)
[2019-03-09] MEDS: APIXABAN 5 MG TABLET 2.5 MG PO (08:55)
[2019-03-09] MEDS: ACETAMINOPHEN 325 MG TABLET 650 MG PO (08:56)
[2019-03-09] MEDS: QUETIAPINE 25 MG TABLET 50 MG PO (09:04)
--- NOTE | 2019-03-09 10:07 | PC.NURSE ---
Addendum entered by Danielle Browning R.N. 03/09/19 14:36: KOBI Angel and Dr. Biswas in to view wound, removed allevyn cleaned and redressed, some redness lateral lle below knee, per will dc back to [facility] on po abx Original Note: AM NOTE - pt is alert, oriented, speech clear, assist x 1 person w/fww to chair for breakfast, chronic back discomfort 5-6 on scale 0/10, given tylenol 650mg this am, 2+ edema, bruising l latter day, small abraison bridge nose, allevyn to skin tears l beltran w/small spot old serosang from prev fall at [facility], later assisted back to bed w/alarm set.
--- NOTE | 2019-03-09 10:25 | CM.DPC ---
Addendum entered by Alison Núñez R.N. 03/09/19 13:43: Yolanda Cook from [place] came by to evaluate patient. She had seen patient in her room when hospitalist, Dr. Ahmadi was present. After assessment, she stated that they could accept patient back. Dr. Ahmadi is aware, and will be placing patient on oral antibiotic at discharge due to skin issue. As soon as orders are in, will fax [place]. Updated nurse Danielle of possible discharge, as well as Adrian. Guerrero stated that she will be working on product picker time. Original Note: DCP Cont: Called Sonya at [facility] to inquire if she can come and evaluate patient. Stated that she is no longer working at [place]. Stated that Yolanda or Leanne would be coming over to evaluate patient. Dr. Ahmadi is wanting to discharge patient today. Was able to get in touch with Yolanda Cook. She is also working the floor at [place]. Stated that she would be coming over between noon and 12:45 to assess patient. She will contact this machine adjuster leader case trim. P: DCP to continue to follow. Will touch base with Yolanda at [place]. Alison Núñez RN/[employer]er
--- NOTE | 2019-03-09 11:30 | PT.IIE ---
Surgical History (Last Reviewed 03/08/19 @ 01:17 by SHAUNA Celis) Hx of appendectomy (Acute) Hx of tonsillectomy (Acute) Hx of total knee arthroplasty (Acute) Medical History (Last Updated 03/08/19 @ 02:21 by SHAUNA Celis) Asthma (Acute) Chronic anticoagulation (Acute) Diabetic neuropathy (Acute) Morbid obesity (Acute) PTSD (post-traumatic stress disorder) (Acute) CVA (cerebral vascular accident) (Acute) Cataract (Acute) Chronic pain (Acute) Depression (Acute) Diabetes (Acute) H/O: hysterectomy (Acute) Hypertension (Acute) Lower extremity edema (Acute) Pulmonary embolism (Acute) Physical Therapy Inpatient Evaluation/Re-Eval M1 PT/OT-IP Prior Functional Status Start: 03/09/19 12:29 Freq: NEEDED Status: Active Protocol: Document 03/09/19 12:00 [facility] (Rec: 03/09/19 12:51 [facility] [id number]) Medical Review Prior Functional Status Medical History Reviewed Yes Communication Independent. Mobility and Gait MOD I with FWW. Activities of Daily Living and IADL's Pt states able to do own dressing, grooming and toileting and staff at [facility] assists with bathing. Social History Living Arrangements Assisted Living M2 PT-IP Current Condition Start: 03/09/19 14:42 Freq: NEEDED Status: Active Protocol: Document 03/09/19 11:30 RS (Rec: 03/09/19 15:32 RS [id number]) Physical Therapy Current Condition Current Condition Evaluation Date 03/09/19 Treatment Diagnosis weakness, AMS Onset Date 03/07/19 M3 PT-IP Subjective Start: 03/09/19 14:42 Freq: NEEDED Status: Active Protocol: Document 03/09/19 11:30 RS (Rec: 03/09/19 15:32 RS [id number]) Subjective Physical Therapy Visit Type Type Initial Evaluation Visit Start Time 11:02 Visit Stop Time 11:30 Total Visit Minutes 28 Physical Therapy Visit Comments Patient Comments Pt reluctant to get up and participate but ultimately willing. Patient Goals go back to sleep, go back to [facility] Therapy Pain Assessment Pain When Pain Assessed At Rest Pain Present Pain Present Denied Pain M4 PT-IP Mobility and Gait Start: 03/09/19 14:42 Freq: NEEDED Status: Active Protocol: Document 03/09/19 11:30 RS (Rec: 03/09/19 15:32 RS [id number]) PT-Bed Mobility Assessment Supine to Sit Supine to Sit Standby Assistance Sit to Supine Sit to Supine Standby Assistance Scooting Scooting to Edge of Bed Standby Assistance Scooting Up and Down in Bed Standby Assistance PT-Transfer Assessment Sit to and From Stand Sit to and from Stand Standby Assistance Equipment Transfer Assistive Device Gait Belt Front Wheeled Walker Transfers Transfer Destination Bed Chair Transfer Technique Stand Step Pivot Transfer Ability Level of Assist Standby Assistance Comments Mobility Comments Relatively steady on feet, no LOB. Gait Assessment Gait Gait Assistance Required: Contact Guard Assist Assistive Devices Assistive Device Gait Belt Front Wheeled Walker Comments Gait Comments slow, steady, needs cues for navigating environment PT-Balance Assessment Sitting Balance and Reactions Static Sitting Balance Ability Normal Dynamic Sitting Balance Ability Good Standing Balance and Reactions Static Standing Balance Ability Good Dynamic Standing Balance Ability Fair Device Used FWW M5 PT-IP Objective Assessments Start: 03/09/19 14:42 Freq: NEEDED Status: Active Protocol: Document 03/09/19 11:30 RS (Rec: 03/09/19 15:32 RS [id number]) Gross Range of Motion Upper Extremity ROM Assessment Within Functional Limits Lower Extremity ROM Assessment Within Functional Limits Strength Upper Extremity Strength Assessment Within Functional Limits Lower Extremity Strength Assessment Within Functional Limits Coordination Assessment Gross Coordination Gross Coordination WNL M6 PT-IP Treatment Start: 03/09/19 14:42 Freq: NEEDED Status: Active Protocol: Document 03/09/19 11:30 RS (Rec: 03/09/19 15:32 RS [id number]) Physical Therapy Treatment Education Education Provided Safety M7 PT-IP Assessment and Plan Start: 03/09/19 14:42 Freq: NEEDED Status: Active Protocol: Document 03/09/19 11:30 RS (Rec: 03/09/19 15:32 RS [id number]) PT Summary Assessment and Plan Potential Rehabilitation Potential Good Status of Condition at Evaluation Stable Summary Impairments Cognition Bed Mobility Transfers Gait Activity Tolerance Progress Towards Goals Safe For Discharge Assessment Summary Pt presents with impaired cognition but is back to baseline. Pt is safe to return to [facility] at previous level of assist. Recommend HHPT for safety assessment. Pt to discharge back today, acute PT will sign off. Frequency of Treatment Frequency Of Treatment Discharge Recommendations To Nursing Amount of Assist Needed 1 Person Assist Discharge Recommendations PT Discharge Recommendations Home with Assistance Home Health
--- NOTE | 2019-03-09 12:51 | OT.IP.TRT ---
Occupational Therapy Treatment Note M2 OT-IP Current Condition Start: 03/09/19 12:29 Freq: Status: Active Protocol: Document 03/09/19 12:00 [facility] (Rec: 03/09/19 12:51 [facility] [id number]) Occupational Therapy Current Condition Current Condition Evaluation Date 03/09/19 Treatment Diagnosis Metabolic encephalopathy Diagnosis Onset Date 03/07/19 M3 OT- IP Subjective and Pain Start: 03/09/19 12:29 Freq: Status: Active Protocol: Document 03/09/19 12:00 [facility] (Rec: 03/09/19 12:46 [facility] [id number]) OT- Subjective Occupational Therapy Visit Type Type Treatment Note Visit Start Time 11:45 Visit Stop Time 12:05 Total Visit Minutes 20 Occupational Therapy Visit Comments Patient Comments Pt sitting on edge of bed when therapist came [facility]. Gait belt placed on pt but after standing insistent to have it off, Take this thing off! OT Pain Assessment Pain When Pain Assessed During Mobility Pain Present Pain Present Pain Reported M4 OT- IP ADL's Start: 03/09/19 12:29 Freq: Status: Active Protocol: Document 03/09/19 12:00 [facility] (Rec: 03/09/19 12:46 [facility] [id number]) OT ADL-Grooming General Evaluation Grooming Ability Standby Assistance Areas Needing Assistance Retrieving/Set-up of Grooming Items Comments OT Grooming Comments Able to brush her hair and wash her face and hands after set-up. OT ADL-Dressing General Eval Lower Body Dressing Ability Maximum Assistance Areas Needing Assistance Socks Comments OT Dressing Comments Pt dependent for socks, however at home does not wear socks or pants, mainly just brief and dress. OT ADL-Toileting Comments OT Toileting Comments Per ARCHAEOLOGY PROFESSOR, pt able to walk into and out of the bathroom with FWW and SAURAV for brief but felt that pt able to do so on her own, but pt requesting the help. OT ADL-Bathing Comments OT Bathing Comments Pt gets assist from [facility] for bathing needs. M6 OT- IP Functional Cognition Start: 03/09/19 12:29 Freq: Status: Active Protocol: Document 03/09/19 12:00 [facility] (Rec: 03/09/19 12:46 [facility] [id number]) Cognitive Factors Limiting Selfcare Function Cognitive Ability Level of Alertness Alert Patient Orientation Name Attention Span Ability Capable of Focused Attention Capable of Sustained Attention Ability to Follow Commands Able to Follow One Step Commands Memory Description Short Term Impaired Safety Awareness Underestimates Need for Assistance Cognitive Comments Cognitive Assessment Comments Pt able to follow one step commands and gets upset easily -insisting on having the gait belt off. However was very thankful to therapist at the end of the session. Therapist having to give concrete commands. Pt OT- Vision and Hearing OT- Vision Assessment Vision History Blindness M7 OT- IP Mobility and Balance Start: 03/09/19 12:29 Freq: Status: Active Protocol: Document 03/09/19 12:00 [facility] (Rec: 03/09/19 12:46 [facility] [id number]) OT-Transfer Assessment Sit to and From Stand Sit to and from Stand Standby Assistance Transfers Transfer Ability Standby Assistance Technique Transfer Destination Chair Transfer Technique Stand Step Pivot Devices Transfer Assistive Devices Gait Belt Front Wheeled Walker Comments Mobility Comments Pt only agreeable to transfer to [facility] at this time. OT- Balance Assessment Sitting Balance and Reactions Static Sitting Balance Ability Normal Standing Balance and Reactions Static Standing Balance Ability Good M8 OT- IP Objective Assessments Start: 03/09/19 12:29 Freq: Status: Active Protocol: Document 03/09/19 12:00 [facility] (Rec: 03/09/19 12:46 [facility] [id number]) OT Gross Range of Motion Upper Extremity Range of Motion Assessment Left Impaired ROM Impairments Left shoulder flexion 0-60 due to weakness and WFL for PROM. RUE WFL OT Strength Upper Extremity Strength Assessment Left Impaired Comments Strength Comments RUE 4/5, LUE form 3-/5 to 4/5 from proximal to distal. M9 OT- IP Assessment and Plan Start: 03/09/19 12:29 Freq: Status: Active Protocol: Document 03/09/19 12:00 [facility] (Rec: 03/09/19 12:46 [facility] [id number]) OT Summary Assessment and Plan Potential Rehabilitation Potential Good Analytic Complexity at Evaluation Low Summary OT Impairments Pain Strength Functional Mobility Dressing Toileting Progress Towards Goals Progressing Toward Goals Assessment Summary Pt here for metabolic encephalopathy Goals Grooming Goal Independent Dressing Goal Independent Toileting Goal Independent Toilet Transfer Goal Independent Days to Meet Goals 3 Frequency of Treatment Frequency Of Treatment Once a Day Treatment Plan OT Treatment Plan ADL Training Functional Mobility Patient/Family Education Discharge Planning Discharge Recommendations OT Discharge Recommendations Home with Assistance Other Discharge Recommendations Home to [facility]
--- NOTE | 2019-03-09 14:58 | P.DS_ITS ---
History of Present Illness Date Patient Seen: 03/08/19 Chief complaint: Altered Mental Status Narrative: Written by Gume VILLATORO: Patient is being admitted for acute metabolic encephalopathy The patient is a 78-year-old female with PMH of HTN, DM 2T, CVA, PE, chronic anticoagulation with Eliquis, CKD IV, venous insufficiency, recurrent UTIs, depression, and chronic pain syndrome. Patient presented to the ED via EMS on 03/07/2018 out of concern for altered mental status. Specifically patient is noted to be somnolent. Symptom onset is noted to be 12 hours prior to ED presentation (8 am on 03/07, respectively). GCS on ED presentation noted to be 12. Spoke to patient's care staff at [facility] who stated that she found patient extremely somnolent and difficult to arouse at approximately 3 in the afternoon on 03/07/2019. Patient was also noted to be incontinent. Review of medication record reveals that the patient has been receiving tramadol 400-500 mg daily over the past two days. The dose appears to be more what she usually received, however, the record is also limited to 03/04/19. She is being screen positive for benzodiazepines on the urine drug screen and Ativan is one of her prn medications; however, I am being told that this patient has not received this medication at all at the facility. Her other medications with potential for [employer] depression include Lamictal 300 mg QD, trazodone 50 mg QHS, seroquel 50 mg BID, and gabapentin 100 mg TID. Patient was recently seen on 03/04/2019 after a GLF, which resulted in a laceration to her left tibia. During that visit she had an irrigation of the wound and stitching. The wound site was covered with Steri-Strips. The bandage was applied over the Steri-Strips. On arrival to the unit site of injury is secured with Steri-Strips and there is no outer bandage. It is not entirely clear that type of wound care or precautions have been taken to minimize the risk of an infection. Patient is chronically anticoagulated with Eliquis. At time of the event she had a negative CT of her head. She had a repeat CT of the head today that was also unrevealing of any acute findings. A temp of the HPI patient is somnolent; easily arousable. She was oriented to self only. She had difficulty staying awake to maintain conversation; however, was able to follow commands appropriately. Her speech was not slurred or incoherent. She did not complain of any other specific discomfort. She was not able to give a reason that precipitated hospital admission. Resides at [facility]. PCP: Danielle Rodriguez ED presentation, work-up WBC 7.9, HGB 12.9, PLT 216 PT 13, INR 1.1, aPTT 36 Lactate 1.5 NA 131, K 3.5, CL 101, CA 10.1, GLU 114 CO2 32, BUN 18, CR 1.8 liver fx is stable Trop < 0.012, PCT < 0.05 UA... + leukocyte esterase; no nitrate, urine WBC or bacteria UDS + benzodiazepine CT Head, no acute intracranial findings CXR revealed diffuse bilateral reticular pulmonary opacities may represent mild pulmonary edema in the setting of chronic cardiomegaly vs atelectasis Discharge Providers Date of admission: 03/07/19 22:49 Discharge Date: 03/09/19 Primary care physician: Danielle Rodriguez MD Consults: 03/08/19 23:56 Consult to Occupational Therapy Evaluate & Treat Comment: ADLS and SLUMS Physician Instructions: Evaluate and treat Consult to Physical Therapy Evaluate & Treat Comment: Physician Instructions: Evaluate and Treat Discharge provider: Domi Ahmadi DO Summary Discharge Diagnosis: 1. Acute metabolic encephalopathy, present on admission. Resolved. 2. Acute opioid poisoning, unintentional, present on admission. Resolved. 3. Right lower extremity wound infection after GLF, poor healing due to chronic stasis dermatitis, present on admission. Improving. 4. Chronic anticoagulation, chronic condition, present on admission. Presumed stable. 5. Abnormal urine drug screen, acute, present on admission, resolved 6. CKD Stage IV, chronic, present on admission. Active. 7. Diabetes mellitus type II, insulin using, chronic, present on admission. Stable. 8. Hyperlipidemia, chronic, present on admission. Stable. Hospital Course: 1. Acute metabolic encephalopathy, present on admission. Resolved. -Patient presented somnolent, confused and combative. Likely secondary to opioid toxicity and concurrent use of other [employer] depressing medications. -Received tramadol 400-500 mg daily for 48 hours prior to ED presentation, CrCl 25 (per cockcroft-Gault, 40% adjustment for obesity). Maximum dosing for immedi ate release formulation is 200 mg daily and a dosing interval of 12 hours. In addition, patient on Lamictal, gabapentin, Seroquel, and trazodone adequately dosed; Held until the patients mentation cleared. Continued neuro checks every 4 hours. -UA and CXR not indicative of an infection process. WBC, PCT, and lactate WNL. -LLE wound did not initially appear to be infected. Received cefazolin 1 g IV x 1 in ED, Continued cefazolin 1 g every 8 hours empirically. Discharged on Augmentin 250 twice daily dosed for renal clearance to complete 10 day course 03/17/19. -Consulted wound care, Dr. Cunningham and Jeanne Medeiros RN, who believed wound was infected and recommended complete antibiotic course and follow-up in wound care clinic by 03/13/19. 2. Acute opioid poisoning, unintentional, present on admission. Resolved. -Suspected to be secondary to a dose higher than recommended per patient's cr eatinine clearance, dose should be limited to 50-100 mg every 12 hours. This particular patient has had d similar events in the past. She continues to be at high risk for recurrence due to underlying advanced CKD and concurrent use of SSRIs and other [employer] depressing agents. Recommend outpatient nephrology consult outpatient. -Did not receive Narcan in the ED as she did not appear to have the degree of somnolence that would require Narcan. Continued to monitor cardiac and respiratory parameters closely. -Urine drug screen did not reveal presence of opioids because tramadol is not readily monitored on standard urine tox screen. Half-life of tramadol 4-6 hours, maybe a bit longer given patient's reduced renal function and creatinine clearance. 3. Right lower extremity wound infection after GLF, poor healing due to chronic stasis dermatitis, present on admission. Improving. -Chronic edematous lower extremitiessecondary to stasis dermatitis and chronic inflammation, erythema fibrosis, lipodermatosclerosis now with infected wound from GLF with poor wound healing. -Afebrile. WBC and lactate WNL, no streaks, localized to both BLE, no purulence or exudate -Resumed regimen of Lasix 40 mg daily in an effort to reduce peripheral edema, consider increasing to BID. Patient would benefit from an unna boot or a compression wrap -LLE wound did not initially appear to be infected. Received cefazolin 1 g IV x 1 in ED, Continued cefazolin 1 g every 8 hours empirically. Discharged on Augmen tin 250 twice daily dosed for renal clearance to complete 10 day course 03/17/19. -Consulted wound care, Dr. Cunningham and Jeanne Medeiros RN, who believed wound was infected and recommended complete antibiotic course and follow-up in wound care clinic by 03/13/19. 4. Chronic anticoagulation, chronic condition, present on admission. Presumed stable. -Continued Eliquis 2.5 mg twice a day dosed to renal clearance for a history of PE. -Efficacy of the medication in this particular patient is questionable as Eliquis is not recommended for patients with BMI over 40 (pt's BMI is 45) or CrCL < 25 (pt's CrCl is 25 ml/min). Need to measure peak and trough levels using an anti-factor Xa assay which do not believe is a resource available to us. Patient was previously on Xarelto 15 mg twice daily at least until Augwhich is unclear why it was changed to Eliquis. 5. Abnormal urine drug screen, acute, present on admission, resolved -Positive for benzodiazepines. Checked with [facility] patient has not been receiving benzodiazepines. It is possible that that they result is false-positive related to use of Zoloft? 6. CKD Stage IV, chronic, present on admission. Active. -Baseline creatinine is 1.8. Creatinine clearance on admission 19. -Avoided hypotension, optimized renal perfusion, renally dosed medications, avoided nephrotoxic agents. -Recommend outpatient nephrology consult. 7. Diabetes mellitus type II, insulin using, chronic, present on admission. Stable. -Not well controlled as hemoglobin A1C 8.6% on 03/22. -Continued Lantus 10 units twice daily. -Continued blood glucose ACHS and low dose correctional scale insulin. -Held glipizide while inpatient and resumed at discharge. -Continued carbohydrate consistent diet. 8. Hyperlipidemia, chronic, present on admission. Stable. -Continued atorvastatin 40 mg daily. Status at Discharge Functional status at discharge: uses cane/walker Overall status at discharge: patient is back to baseline Exam Vital Signs (past 8 hours): - 03/09/19 07:30 03/09/19 09:00 03/09/19 11:00 Temperature 98.1 F 98.2 F Pulse Rate 72 70 Respiratory Rate 16 16 Blood Pressure 150/76 H 154/79 H Pulse Oximetry 94 95 94 03/09/19 13:44 Temperature Pulse Rate Respiratory Rate Blood Pressure Pulse Oximetry 96 Oxygen Delivery Method Room Air Oxygen Flow Rate 0 Narrative Exam Narrative: General: Elderly female sitting in bedside chair comfortably and in no acute distress, well-developed, well-nourished, probable mild dementia with short term memory recall deficit but appropriately interactive HEENT: Normocephalic, atraumatic. External ears without defect. Pupils equal, round, and reactive to light. Anicteric sclerae, moist conjunctivae, and no lid lag. Neck: Supple with full range of motion. No jugular venous distension. No lymphadenopathy or thyromegaly. Cardiovascular: Regular rate and rhythm with no murmurs, rubs, or gallops appreciated Pulmonary: Clear to auscultation bilaterally with no crackles, wheezes, or rhonchi. Normal respiratory effort with no use of accessory muscles. Abdomen: Soft, morbidly obese, bowel tones present. nontender, nondistended. No hepatosplenomegaly or masses appreciated. Extremities: No clubbing or cyanosis. Bilateral erythema and edema consistent with peripheral vascular stasis dermatitis, lipodermatosclerosis with wound on RLE anterior pretibial area, slightly infected but improving and healing without exudate. Skin: Normal temperature, turgor, and texture; no rash, ulcers, or subcutaneous nodules appreciated. Neurological: Cranial nerves grossly intact. Normal muscle strength, tone, and bulk. Reflexes, coordination, and sensory function within normal limits. No k nown gait impairment. Psychiatric: Normal mood and affect. Alert and oriented to person, place, and time. Objective Labs Result Diagrams: 03/09/19 06:48 03/08/19 08:45 Labs: Laboratory Results - last 24 hr 03/09/19 03/09/19 06:48 06:48 WBC 8.1 RBC 4.14 Hgb 12.7 Hct 36.6 MCV 88.4 MCH 30.7 MCHC 34.7 RDW 14.7 Plt Count 264 Neut % (Auto) 66.7 Lymph % (Auto) 22.1 L [place] % (Auto) 7.2 Eos % (Auto) 2.8 Baso % (Auto) 1.2 Neut # (Auto) 5400 Lymph # (Auto) 1800 [place] # (Auto) 600 Eos # (Auto) 200 Baso # (Auto) 100 Procalcitonin < 0.05 Discharge Plan Discharge Plan Patient Disposition: Assisted Living Other facility: [facility] Under care of provider: Dr. Rodriguez Transportation: Facility vehicle Discharge Med Rec/Prescriptions Prescriptions: New cephalexin [Keflex] 250 mg capsule 250 mg PO BID Qty: 18 RF: 0 Continued lamotrigine [Lamictal] 100 MG tablet 300 mg PO QDAY Qty: 0 RF: 0 Flovent Diskus 100 MCG blister with device 100 mcg INH BIDP PRN (Reason: asthma) Qty: 0 RF: 0 docusate sodium 100 MG capsule 200 mg PO QDAYP PRN (Reason: Constipation) Qty: 0 RF: 0 atorvastatin 40 MG tablet 40 mg PO QPM Qty: 0 RF: 0 furosemide [Lasix] 40 mg Tablet 40 mg PO BID RF: 0 ascorbic acid (vitamin C) [Vitamin C] 500 mg Tablet 500 mg PO DAILY RF: 0 Novolog Flexpen U-100 Insulin 100 unit/mL Insulin Pen See Rx Instructions .ROUTE .COMPLEX RF: 0 latanoprost 0.005 % Drops 1 drp EYE-RIGHT DAILY RF: 0 erythromycin 5 mg/gram (0.5 %) Ointment 0.5 inch EYE-LEFT DAILY RF: 0 sertraline [Zoloft] 50 mg Tablet 50 mg PO BEDTIME Qty: 30 RF: 0 glipizide 10 mg Tablet 10 mg PO BID RF: 0 Eucerin Original Lotion 1 applic TOPICAL BID RF: 0 cholecalciferol (vitamin D3) [Vitamin D3] 1,000 unit Tablet 1,000 unit PO DAILY RF: 0 Lac-Hydrin Lotion 12% lotion 1 applic Topical BID RF: 0 acetaminophen 325 mg Tablet 650 mg PO Q6H PRN (Reason: Pain (Scale Score 1-3)) RF: 0 lidocaine 4 % Adhesive Patch,Medicated 1 patch TOPICAL DAILY RF: 0 trazodone 50 mg Tablet 50 mg PO BEDTIME PRN (Reason: Sleep) RF: 0 guaifenesin [Cough Syrup] 100 mg/5 mL Liquid 10 ml PO Q4H PRN (Reason: Cough) RF: 0 gabapentin 100 mg Capsule 100 mg PO TID RF: 0 lorazepam [Ativan] 1 mg Tablet 1 mg PO Q4HR RF: 0 albuterol sulfate [ProAir HFA] 90 mcg/actuation Hfa Aerosol Inhaler 2 puff INHALATION Q4-6H PRN (Reason: Shortness Of Breath) RF: 0 loratadine [Claritin] 10 mg Tablet 10 mg PO DAILY RF: 0 Lantus Solostar U-100 Insulin 100 unit/mL (3 mL) Insulin Pen 10 unit SUBCUT BID RF: 0 nystatin 100,000 unit/gram Powder 1 applic TOPICAL TID PRN (Reason: Skin Irritation) RF: 0 quetiapine 50 mg Tablet 50 mg PO BID RF: 0 Eliquis 2.5 mg Tablet 2.5 mg PO BID RF: 0 Daily Multivitamin 200-100-500 mcg Capsule 1 tab PO DAILY RF: 0 Changed tramadol 50 mg Tablet 100 mg PO BID Qty: 30 RF: 0 Discontinued doxycycline hyclate 100 mg Capsule 100 mg PO BID RF: 0 Follow up/Referrals: Danielle Rodriguez MD [Primary Care Provider] - Discharge Orders: Discharge (Order); Ordered 03/09/19 Ordered By: Domi Ahmadi Discharge Health Status Brief summary of current health status: Cassie Waddell is a 78-year-old female who was admitted for metabolic encephalopathy secondary to multiple medications that are sedating including: Gabapentin, lamotrigine, lorazepam, quetiapine, tramadol, and trazodone. Recommend if tramadol is continued for pain control 50- 100 mg 1-2 times daily maximum (frequency CANNOT be more often than every 12 hours based on creatinine clearance). Other medications that may be used for pain control include Tylenol and low-dose opiate. Also recommend a nephrology consult outpatient as patient's renal function is significantly impaired and she may need dialysis in the future (CrCl 19). Any of her medications that are renally metabolized will need to be renally adjusted. Lamotrigine level is pending and needs to be followed up by Dr. Rodriguez. The patient's wound appears to be slightly infected and will continue antibiotics to treat for 10 days total. She should follow up with wound Care Clinic by the end of the week 03/13/2019. Suture to be removed as previously instructed by ED physician. Care management is working on getting patient into see wound at the clinic by this Saturday. Please, in the mean time leave Allevyn dressing on LL beltran. If it comes off, replace with xeroform gauze and allevyn to secure. Allevyn may be left on for up to five days. Thank you Multidrug resistant organism: No MDRO Provider Discharge Instructions Diet: Diet as Tolerated and Carb-consistent/Diabetic Activity: Activity as tolerated with FWW Skin/Wound/Dressing Care Other wound treatment: Continue wound care per wound care Dr. Cunningham and follow up at wound Care Clinic by Saturday03/13/2019. Discharge Data Primary Care Provider: Danielle Rodriguez Attending Provider: Gume Lr Admit Date/Time: 03/07/19 22:49 Discharges patient from system. Discharge Date/Time: 03/09/19 16:03 Quality VTE Deep Vein Thrombosis/Pulmonary Embolism Present on Admission: No
--- NOTE | 2019-03-09 15:53 | CM.DPC ---
DCP Cont: Patient was not yet ready, and was still in bed, for she was to be picked up at 1330. Spoke to personal driver, Lindsey, from [place]. Asked her if she could wait for a moment so staff could get ready. They are in her room now assisting her. Had mentioned to charge nurse, Waqas, that plan was for berry picker machine operator at 1530, and was written on white board. Charge nurse, Junie, is working on this. [place] wanted hospital to make appt for her to be seen at wound clinic, and stated that they could not make this appt. This is for follow up with sutures. Let Junie, charge nurse, know that this outsole caser would call wound clinic to follow up to ensure that she can be seen Saturday. This outsole caser called and left a message with Silvana at the wound clinic that patient needs to be seen this Saturday. Charge nurse had already spoken to Cierrazuleima Harrisonas about this as well. Patient is going back to [place] on oral antibiotics. P: Patient is to go to [place] this afternoon. Called and left message with wound clinic that she needs follow up at clinic on Saturday. Will hold on to face sheet of patient's in case they have any questions at [place], or in case the wound clinic calls back. Alison Núñez RN/Acoustical Tile Drill Press Operator
--- NOTE | 2019-03-09 16:01 | PC.NURSE ---
1500- assumed care of pt from outgoing shift. PT awake and alert. pending discharge. called report to sole daniels. given info and update on pts status. CM working on clinic visit this Saturday. Pt belongings sent with pt.
[2019-03-10 15:32] LABS: Osmolality, Serum 300 mosm/kg (260-310)
== END 2019-03-09 16:03 ==
LOC: ED 22:42 → AC 22:53
PROVIDERS: Internal Medicine; Admitting Provider Nurse Practitioner Gerontology; Emergency Provider Emergency Medicine; PCP Internal Medicine; Visit Provider Nurse Practitioner Gerontology
DX: G93.41 Metabolic encephalopathy (principal); R29.818 Other symptoms and signs involving the nervous system; T40.2X1A Poisoning by other opioids, accidental (unintentional), initial encounter; E11.40 Type 2 diabetes mellitus with diabetic neuropathy, unspecified; I12.9 Hypertensive chronic kidney disease with stage 1 through stage 4 chronic kidney disease, or unspecified chronic kidney disease; N18.4 Chronic kidney disease, stage 4 (severe); I87.2 Venous insufficiency (chronic) (peripheral); G89.4 Chronic pain syndrome; F32.9 Major depressive disorder, single episode, unspecified; Z86.73 Personal history of transient ischemic attack (TIA), and cerebral infarction without residual deficits; Z79.01 Long term (current) use of anticoagulants; Z86.711 Personal history of pulmonary embolism; E66.9 Obesity, unspecified; Z87.891 Personal history of nicotine dependence; Z91.81 History of falling
CPT/HCPCS: 36415; 70450; 71045; 80048; 80053; 80305; 81001; 82962; 83605; 83930; 84145; 84484; 85025; 85610; 85730; 87040; 87086; 93005; 93041; 94760; 96365; 96366; 96372; 97161; 97165; 97530; 99285; 99291; G0378

== ENCOUNTER → 2019-03-10 09:47 | Outpatient (ROUT) | payer MEDICARE, MEDICAID, SELFPAY ==
[2019-03-08 01:19] VITALS: BMI 45.8
[2019-03-10 10:44] LABS: Hemoglobin A1C% w Est Avg Glu 8.7 % (4.0-6.0)
== END ==
PROVIDERS: PCP Internal Medicine; Visit Provider Internal Medicine
DX: E11.9 Type 2 diabetes mellitus without complications (principal)
CPT/HCPCS: 36415; 83036

== ENCOUNTER → 2019-03-20 13:39 | Outpatient (CLI) | payer MEDICARE, MEDICAID, SELFPAY ==
[2019-03-08 01:19] VITALS: BMI 45.8
== END ==
PROVIDERS: PCP Internal Medicine; Visit Provider Family Medicine
DX: E11.622 Type 2 diabetes mellitus with other skin ulcer (principal); S81.802A Unspecified open wound, left lower leg, initial encounter; L03.116 Cellulitis of left lower limb; I87.2 Venous insufficiency (chronic) (peripheral); Z79.01 Long term (current) use of anticoagulants; I89.0 Lymphedema, not elsewhere classified
CPT/HCPCS: 11042; 11045; 99203

== ENCOUNTER 2019-03-24 13:48 | Emergency (ER) | payer MEDICARE, MEDICAID, SELFPAY ==
[2019-03-08 01:19] VITALS: BMI 45.8
[2019-03-24 13:55] VITALS: BP 128/53; PULSE 77; RESP 16; TEMP 36.7; O2SAT 94
--- NOTE | 2019-03-24 14:05 | PC.NURSE ---
Pt is legally blind,unable to visualize left pupil. Normal for pt
--- NOTE | 2019-03-24 14:30 | DI.CT.S_ITS ---
PROCEDURE: CT HEAD/BRAIN WO CON INDICATIONS: head injury/anticoagulation TECHNIQUE: Noncontrast 4.5 mm thick angled axial sections acquired from the foramen magnum to the vertex, with coronal and sagittal reformats. For radiation dose reduction, the following was used: automated exposure control, adjustment of mA and/or kV according to patient size. COMPARISON: [facility], CT, CT HEAD/BRAIN WO CON, 03/07/2019, 20:05. FINDINGS: Image quality: Excellent. CSF spaces: Basal cisterns are patent. No extra-axial fluid collections. The ventricles are symmetric in size and shape. Brain: No intracranial bleeds or masses. There is mild cerebral volume loss for age, with resultant ventricular and sulcal prominence. There are moderate periventricular and deep white matter chronic small vessel ischemic changes. There is intracranial internal carotid artery atherosclerosis. Skull and face: Calvarium and visualized facial bones appear intact, without suspicious lesions. Sinuses: Visualized sinuses and mastoids are clear. IMPRESSION: No acute intracranial disease process. Dictated by: Romana Nicole MD, PhD on 03/24/2019 at 14:44 Approved by: Romana Nicole MD, PhD on 03/24/2019 at 14:46
--- NOTE | 2019-03-24 14:44 | PC.NURSE ---
Assisted placing bedpan for patient but she was unable to void in that seated position, prefers to walk to bathroom but RN said not at this time
--- NOTE | 2019-03-24 15:46 | ED.FALL ---
HPI - Fall General Chief Complaint: Fall Stated Complaint: GLF, lac on leg Time Seen by Provider: 03/24/19 14:01 Source: patient Mode of arrival: ambulatory Limitations: no limitations History of Present Illness HPI Narrative: Patient comes emergency department after tripping over her walker and falling at her assisted living facility. Patient states she may have hit her head during the fall but did not lose consciousness. She states that her only other injury is a laceration to her left leg. Patient states she has aches and pains in her wrists and her low back which are unchanged. Patient denies any other complaints at this time. She did not try to ambulate. She denies any rib pain or chest pain or shortness of breath. No abdominal pain. Related Data Home Medications Medication Instructions Recorded Confirmed Flovent Diskus 100 mcg INH BIDP PRN #0 09/08/16 03/24/19 lamotrigine [Lamictal] 300 mg PO DAILY #0 09/08/16 03/24/19 docusate sodium 200 mg PO QDAYP PRN #0 07/10/17 03/24/19 atorvastatin 40 mg PO DAILY #0 01/18/18 03/24/19 ascorbic acid (vitamin C) [Vitamin 500 mg PO DAILY 04/01/18 03/24/19 C] furosemide [Lasix] 40 mg PO DAILY 04/01/18 03/24/19 erythromycin 0.5 inch EYE-LEFT DAILY 08/08/18 03/24/19 latanoprost 1 drp EYE-RIGHT DAILY 08/08/18 03/24/19 Eucerin Original 1 applic TOPICAL BID 08/13/18 03/24/19 ammonium lactate 1 applic TOPICAL BID #0 08/13/18 03/24/19 cholecalciferol (vitamin D3) 1,000 unit PO DAILY 08/13/18 03/24/19 [Vitamin D3] glipizide 10 mg PO BID 08/13/18 03/24/19 Lantus Solostar U-100 Insulin 10 unit SUBCUT BID 03/07/19 03/24/19 acetaminophen 650 mg PO Q6H PRN 03/07/19 03/24/19 albuterol sulfate [ProAir HFA] 2 puff INHALATION Q4H PRN 03/07/19 03/24/19 guaifenesin [Cough Syrup] 10 ml PO Q4H PRN 03/07/19 03/24/19 lidocaine 1 patch TOPICAL DAILY 03/07/19 03/24/19 loratadine [Claritin] 10 mg PO DAILY PRN 03/07/19 03/24/19 lorazepam [Ativan] 1 mg PO Q4HR PRN 03/07/19 03/24/19 trazodone 50 mg PO BEDTIME PRN 03/07/19 03/24/19 nystatin 1 applic TOPICAL TID PRN 03/08/19 03/24/19 quetiapine 50 mg PO BID 03/08/19 03/24/19 apixaban [Eliquis] 2.5 mg PO BID 03/24/19 03/24/19 calcium carbonate [Tums] 1 - 2 tab PO Q4H PRN 03/24/19 03/24/19 gabapentin 300 mg PO BID 03/24/19 03/24/19 insulin lispro [Humalog KwikPen 1 dose SUBCUT TID 03/24/19 03/24/19 Insulin] multivitamin with minerals 1 tab PO DAILY 03/24/19 03/24/19 Previous Rx's Medication Instructions Recorded sertraline [Zoloft] 50 mg PO BEDTIME #30 tab 08/12/18 tramadol 100 mg PO BID #30 tab 03/09/19 Allergies Allergy/AdvReac Type Severity Reaction Status Date / Time Iodine and Iodide Containing Allergy Intermediate i get Verified 03/24/19 13:55 Produc spots all [IODINE AND IODIDE over my CONTAINING PRODUC] body Penicillins [PENICILLINS] Allergy Intermediate makes my Verified 03/24/19 13:55 bones and joints ache aspirin [ASPIRIN] Allergy Unknown Verified 03/24/19 13:55 meclizine [MECLIZINE] Allergy Unknown Verified 03/24/19 13:55 codeine [CODEINE] AdvReac Unknown gives me Verified 03/24/19 13:55 bloody nightmares potassium [POTASSIUM] AdvReac Unknown Verified 03/24/19 13:55 Review of Systems Constitutional Denies chills, Denies fever(s), Denies lethargy and Denies weakness Eyes Denies change in vision, Denies eye discharge, Denies irritation and Denies loss of vision ENT Ears, Nose, Mouth, and Throat: Denies change in voice, Denies neck pain and Denies sore throat Cardiovascular Denies chest pain, Denies irregular heart rhythm, Denies lightheadedness, Denies palpitations, Denies dyspnea, Denies dyspnea on exertion and Denies orthopnea Respiratory Denies cough, Denies dyspnea, Denies dyspnea on exertion and Denies wheezing Gastrointestinal Gastrointestinal: Denies abdominal pain, Denies change in bowel habits, Denies diarrhea, Denies nausea and Denies vomiting Genitourinary Denies hematuria, Denies flank pain, Denies urinary incontinence and Denies urinary urgency Musculoskeletal Denies neck pain Comments: Left leg injury. Integumentary/Breasts Denies pruritus, Denies erythema, Denies rash and Denies wounds Neurologic Denies confusion, Denies loss of vision and Denies weakness Psychiatric Denies anxiety, Denies confusion, Denies depression, Denies homicidal ideation and Denies suicidal ideation Endocrine Denies palpitations Hematologic/Lymphatic Denies easy bruising Allergic/Immunologic Denies wheezing Exam Initial Vital Signs Initial Vital Signs: Vital Signs Temperature 98.1 F 03/24/19 13:55 Pulse Rate 77 03/24/19 13:55 Respiratory Rate 16 03/24/19 13:55 Blood Pressure 128/53 L 03/24/19 13:55 Pulse Oximetry 94 03/24/19 13:55 Const General: cooperative and well developed Nutritional Appearance: well nourished Orientation: alert, awake, oriented x3 and not confused [facility] Head: normocephalic and atraumatic (No contusion or swelling noted on the patient's head. No facial trauma.) Ears: external ears normal and TM's normal bilaterally Nose: external nose normal and No nasal discharge Face and sinus: face symmetric and No dry mucous membranes Mouth: oral mucosae normal and moist mucous membranes Teeth and gingiva: dentition normal Eyes General: appearance normal, both eyes and all related structures Eyelids: eyelids normal Conjunctivae: conjunctivae normal Sclera: sclerae normal Pupils: PERRL EOM: EOM intact bilaterally Neck Neck: normal visual inspection, trachea midline, No lymphadenopathy, No midline deformity and No JVD Lymphatic: No lymphedema Chest Chest: normal inspection of the chest Resp Effort & Inspection: normal respiratory effort, able to speak in complete sentences, no respiratory distress and no use of accessory muscles Auscultation: clear to auscultation bilaterally, no rales, no rhonchi and no wheezes Cardio Rate: regular rate Rhythm: regular rhythm Heart Sounds: no click, no gallops, no murmurs and no rubs Pulses: normal peripheral pulses GI Inspection: non-distended Palpation: soft, no hepatosplenomegaly, No guarding, No pulsatile mass and No tender Auscultation: normal bowel sounds Back/Spine/Pelvis Back: No CVA tenderness Cervical Spine: cervical ROM normal and No pain with cervical ROM Thoracic/Lumbar Spine: thoracic and lumbar spine normal to inspection Skin General: no rashes or lesions noted, No jaundice and No petechiae Other: Patient has a 4 cm laceration to her left lateral lower leg. Bleeding is controlled. Depth is approximately 4 mm. A chronic, stage 3 ulcer is noted on the patient's anterior left lower leg in the pretibial area Neuro General: alert, oriented x3, gait normal and no focal motor deficits Speech: speech normal Extrem General: full ROM, no clubbing, cyanosis or edema, no pedal edema and no calf tenderness Other: Patient has full range of motion of both wrists, with no edema or deformity. Psych Appearance: well kempt Mental Status: mental status grossly normal Attitude: cooperative Thought Content: normal and suicidality Judgment: judgment good PENDING SALE TO [facility] Medical History Asthma (Acute) CVA (cerebral vascular accident) (Acute) Cataract (Acute) Chronic anticoagulation (Acute) Chronic pain (Acute) Depression (Acute) Diabetes (Acute) Diabetic neuropathy (Acute) H/O: hysterectomy (Acute) Hypertension (Acute) Lower extremity edema (Acute) Morbid obesity (Acute) PTSD (post-traumatic stress disorder) (Acute) Pulmonary embolism (Acute) Surgical History Hx of appendectomy (Acute) Hx of tonsillectomy (Acute) Hx of total knee arthroplasty (Acute) Family History (Updated 03/08/19 @ 01:26 by SHAUNA Celis) Mother No known health problems Father Lung cancer Sister Lung cancer Tobacco dependence Social History household members: caregiver Smoking Status: Never smoker alcohol intake: former Family History Mother No known health problems Father Lung cancer Sister Lung cancer Tobacco dependence Social History household members: caregiver Smoking Status: Never smoker alcohol intake: former Procedures Laceration Repair Laceration 1: Site: lower extremity Side (If applicable): left Size (cm): 4 Description: linear Depth: simple, single layer Local Anesthetic: lidocaine 2% Amount of anesthesia used (mL): 8 Pre-repair: wound explored, irrigated extensively and deep structures intact Skin layer closed with: nylon Size (cm): 4-0 Number of sutures: 9 Technique: simple, interrupted Course Course Narrative: Patient was well appearing in the emergency department. She was worked up with a CT scan, due to the fact that she was on Eliquis, and there is no evidence of intracranial hemorrhage. Her laceration was repaired with 9 sutures. I did not find any evidence of any further acute injury for the patient, and I feel she is stable for discharge. We have discussed wound care, as well as symptomatic management hand, and the usual indications for return. We have also discussed the timeline for suture removal. Orders Ordered: ED Orders 03/24/19 14:30 CT head/brain wo con Stat Vital Signs - 8 hr 03/24/19 13:55 Temperature 98.1 F Pulse Rate 77 Respiratory Rate 16 Blood Pressure 128/53 L Pulse Oximetry 94 MDM - Fall Medical Records Attestation: I reviewed the patient's medical records. Imaging Data CT scan - head: Radiologist's impression: PROCEDURE: CT HEAD/BRAIN WO CON INDICATIONS: head injury/anticoagulation TECHNIQUE: Noncontrast 4.5 mm thick angled axial sections acquired from the foramen magnum to the vertex, with coronal and sagittal reformats. For radiation dose reduction, the following was used: automated exposure control, adjustment of mA and/or kV according to patient size. COMPARISON: [facility], CT, CT HEAD/BRAIN WO CON, 03/07/2019, 20:05. FINDINGS: Image quality: Excellent. CSF spaces: Basal cisterns are patent. No extra-axial fluid collections. The ventricles are symmetric in size and shape. Brain: No intracranial bleeds or masses. There is mild cerebral volume loss for age, with resultant ventricular and sulcal prominence. There are moderate periventricular and deep white matter chronic small vessel ischemic changes. There is intracranial internal carotid artery atherosclerosis. Skull and face: Calvarium and visualized facial bones appear intact, without suspicious lesions. Sinuses: Visualized sinuses and mastoids are clear. IMPRESSION: No acute intracranial disease process. Dictated by: Romana Nicole MD, PhD on 03/24/2019 at 14:44 Approved by: Romana Nicole MD, PhD on 03/24/2019 at 14:46 Discharge Plan Departure Patient Disposition: Home Clinical Impression: Fall Qualifiers: Encounter type: initial encounter Qualified Code(s): W19.XXXA - Unspecified fall, initial encounter Laceration of left leg Qualifiers: Encounter type: initial encounter Qualified Code(s): S81.812A - Laceration without foreign body, left lower leg, initial encounter Discharge Date/Time: 03/24/19 16:07 Interventions: ED Discharge Assessment Last Done: 03/24/19 16:06 Instructions: DI for Laceration Repair Activity Restrictions/Additional Instructions: The CT scan of your head looked good. Your wound has been sutured today. The stitches will need to stay in for about 7 days, though your doctor will need to recheck this wound after 7 days have passed and will decide if the wound is ready for sutures to be taken out. Please keep the wound clean and dry. Do not immerse the wound in water, and do not rub or scrub the wound until sutures have been taken out. This is to prevent infection. Your wound may lose blood for the next 24 hours, since you are on blood thinners, but this will stop on its own. If he develops redness spreading away from the wound, or if the wound split open and drains pus, you should have your wound rechecked right away. Prescriptions: No Action lamotrigine [Lamictal] 100 MG tablet 300 mg PO DAILY Qty: 0 RF: 0 Flovent Diskus 100 MCG blister with device 100 mcg INH BIDP PRN (Reason: asthma) Qty: 0 RF: 0 docusate sodium 100 MG capsule 200 mg PO QDAYP PRN (Reason: Constipation) Qty: 0 RF: 0 atorvastatin 40 MG tablet 40 mg PO DAILY Qty: 0 RF: 0 furosemide [Lasix] 40 mg Tablet 40 mg PO DAILY RF: 0 ascorbic acid (vitamin C) [Vitamin C] 500 mg Tablet 500 mg PO DAILY RF: 0 latanoprost 0.005 % Drops 1 drp EYE-RIGHT DAILY RF: 0 erythromycin 5 mg/gram (0.5 %) Ointment 0.5 inch EYE-LEFT DAILY RF: 0 sertraline [Zoloft] 50 mg Tablet 50 mg PO BEDTIME Qty: 30 RF: 0 ammonium lactate 12 % Lotion 1 applic TOPICAL BID Qty: 0 RF: 0 glipizide 10 mg Tablet 10 mg PO BID RF: 0 Eucerin Original Lotion 1 applic TOPICAL BID RF: 0 cholecalciferol (vitamin D3) [Vitamin D3] 1,000 unit Tablet 1,000 unit PO DAILY RF: 0 acetaminophen 325 mg Tablet 650 mg PO Q6H PRN (Reason: Pain (Scale Score 1-3)) RF: 0 lidocaine 4 % Adhesive Patch,Medicated 1 patch TOPICAL DAILY RF: 0 trazodone 50 mg Tablet 50 mg PO BEDTIME PRN (Reason: Sleep) RF: 0 guaifenesin [Cough Syrup] 100 mg/5 mL Liquid 10 ml PO Q4H PRN (Reason: Cough) RF: 0 lorazepam [Ativan] 1 mg Tablet 1 mg PO Q4HR PRN (Reason: behaviours) RF: 0 albuterol sulfate [ProAir HFA] 90 mcg/actuation Hfa Aerosol Inhaler 2 puff INHALATION Q4H PRN (Reason: asthma) RF: 0 loratadine [Claritin] 10 mg Tablet 10 mg PO DAILY PRN (Reason: Allergy Symptoms) RF: 0 Lantus Solostar U-100 Insulin 100 unit/mL (3 mL) Insulin Pen 10 unit SUBCUT BID RF: 0 nystatin 100,000 unit/gram Powder 1 applic TOPICAL TID PRN (Reason: Skin Irritation) RF: 0 quetiapine 50 mg Tablet 50 mg PO BID RF: 0 tramadol 50 mg Tablet 100 mg PO BID Qty: 30 RF: 0 calcium carbonate [Tums] 200 mg calcium (500 mg) Tablet,Chewable 1 - 2 tab PO Q4H PRN (Reason: Nausea) RF: 0 gabapentin 300 mg Capsule 300 mg PO BID RF: 0 multivitamin with minerals Tablet 1 tab PO DAILY RF: 0 Humalog KwikPen Insulin 100 unit/mL Insulin Pen 1 dose subcut TID RF: 0 Eliquis 2.5 mg Tablet 2.5 mg PO BID RF: 0 Referrals: Danielle Rodriguez MD [Primary Care Provider] -
[2019-03-24 15:49] VITALS: BP 138/57; PULSE 73; RESP 16; O2SAT 93
== END 2019-03-24 16:07 | disposition home or self-care (01) ==
PROVIDERS: Emergency Provider Emergency Medicine; PCP Internal Medicine
DX: S81.812A Laceration without foreign body, left lower leg, initial encounter (principal); W18.30XA Fall on same level, unspecified, initial encounter; S09.90XA Unspecified injury of head, initial encounter; Z79.01 Long term (current) use of anticoagulants
CPT/HCPCS: 12002; 70450; 99283; 99284

== ENCOUNTER → 2019-03-25 13:25 | Outpatient (CLI) | payer MEDICARE, MEDICAID, SELFPAY ==
[2019-03-08 01:19] VITALS: BMI 45.8
--- NOTE | 2019-03-25 | DI.RAD.S_ITS ---
PROCEDURE: XR WRIST LT MIN 3V INDICATIONS: LT WRIST PAIN TECHNIQUE: 3 views of the wrist were acquired. COMPARISON: [facility], CR, XR WRIST RT MIN 3V, 08/06/2018, 15:36. FINDINGS: Bones: No fractures or dislocations. There is moderate to severe degeneration of the 1st carpometacarpal joint. Ulnar negative variance noted. No suspicious bony lesions. Soft tissues: No suspicious soft tissue calcifications. IMPRESSION: 1. Moderate to severe degeneration of the 1st carpometacarpal joint. Dictated by: Capo Maya M.D. on 03/25/2019 at 16:21 Approved by: Capo Maya M.D. on 03/25/2019 at 16:22
== END ==
PROVIDERS: PCP Internal Medicine; Visit Provider Registered Nurse
DX: M25.532 Pain in left wrist (principal); M18.12 Unilateral primary osteoarthritis of first carpometacarpal joint, left hand
CPT/HCPCS: 73110

== ENCOUNTER 2019-03-28 09:02 | Inpatient (IN) | payer MEDICARE, MEDICAID, SELFPAY ==
[2019-03-08 01:19] VITALS: BMI 45.8
[2019-03-28] VITALS (13 sets, daily range): BP systolic 88–142; BP diastolic 32–71; PULSE 57–95; RESP 12–23; TEMP 36.7–38.8; O2SAT 91–100; BMI 44.9
--- NOTE | 2019-03-28 09:09 | DI.RAD.S_ITS ---
PROCEDURE: XR CHEST 1V INDICATIONS: fever TECHNIQUE: One view of the chest was acquired. COMPARISON: [facility], CT, PE STUDY (CTA CHEST), 09/07/2016, 20:57. [facility], CR, CHEST 1 VIEW, 06/04/2017, 20:31. [facility], CR, CHEST 1 VIEW, 01/18/2018, 5:30. [facility], CR, XR CHEST 1V, 08/08/2018, 2:58. [facility], CR, XR CHEST 1V, 03/07/2019, 20:05. FINDINGS: Surgical changes and devices: None. Lungs and pleura: An incomplete inspiratory result is noted, causing a crowded appearance to the lung markings. No focal infiltrates are seen. No pneumothorax or significant pleural effusions are seen. Mediastinum: The cardiac contours are mildly enlarged. The aorta demonstrates calcification and tortuosity. Bones and chest wall: No suspicious bony lesions. Age-appropriate bony degenerative changes are seen. Overlying soft tissues appear unremarkable. IMPRESSION: Limited portable chest study, without a focal infiltrate identified. Mild cardiomegaly. Dictated by: Matthew Shi M.D. on 03/28/2019 at 8:51 Approved by: Matthew Shi M.D. on 03/28/2019 at 8:53
--- NOTE | 2019-03-28 09:14 | ED_ITS ---
HPI - Fever General Chief Complaint: Fever Stated Complaint: L Lower Leg Cellulitis Time Seen by Provider: 03/28/19 09:07 Source: patient, EMS and old records reviewed Limitations: no limitations History of Present Illness HPI Narrative: Patient is a 78-year-old female who presents with fever from [place] at [facility]. She has a chronic wound on her leg and has recently been kicked out of the wound care due to aggressive behavior. She does apparently have intermittent aggressive behavior. She denies any cough pa inful urination nausea vomiting or abdominal pain. She overall says that she does not feel well. She was very cold this morning not get warm. She continues to be febrile in the ED. He is obese and normal oxygen level seem to be 94-97% for her. According to [facility] vitals her oxygen has been slightly decreased from 90-93% Related Data Home Medications Medication Instructions Recorded Confirmed Flovent Diskus 100 mcg INH BIDP PRN #0 09/08/16 03/28/19 lamotrigine [Lamictal] 300 mg PO DAILY #0 09/08/16 03/28/19 docusate sodium 200 mg PO QDAYP PRN #0 07/10/17 03/28/19 atorvastatin 40 mg PO DAILY #0 01/18/18 03/28/19 ascorbic acid (vitamin C) [Vitamin 500 mg PO DAILY 04/01/18 03/28/19 C] furosemide [Lasix] 40 mg PO DAILY 04/01/18 03/28/19 erythromycin 0.5 inch EYE-LEFT DAILY 08/08/18 03/28/19 latanoprost 1 drp EYE-RIGHT DAILY 08/08/18 03/28/19 Eucerin Original 1 applic TOPICAL BID 08/13/18 03/28/19 ammonium lactate 1 applic TOPICAL BID #0 08/13/18 03/28/19 cholecalciferol (vitamin D3) 1,000 unit PO DAILY 08/13/18 03/28/19 [Vitamin D3] glipizide 10 mg PO BID 08/13/18 03/28/19 Lantus Solostar U-100 Insulin 10 unit SUBCUT BID 03/07/19 03/28/19 acetaminophen 650 mg PO Q6H PRN 03/07/19 03/28/19 albuterol sulfate [ProAir HFA] 2 puff INHALATION Q4H PRN 03/07/19 03/28/19 guaifenesin [Cough Syrup] 10 ml PO Q4H PRN 03/07/19 03/28/19 loratadine [Claritin] 10 mg PO DAILY PRN 03/07/19 03/28/19 lorazepam [Ativan] 1 mg PO Q4HR PRN 03/07/19 03/28/19 trazodone 50 mg PO BEDTIME PRN 03/07/19 03/28/19 nystatin 1 applic TOPICAL TID PRN 03/08/19 03/28/19 quetiapine 50 mg PO BID 03/08/19 03/28/19 apixaban [Eliquis] 2.5 mg PO BID 03/24/19 03/28/19 calcium carbonate [Tums] 1 - 2 tab PO Q4H PRN 03/24/19 03/28/19 insulin lispro [Humalog KwikPen 1 dose SUBCUT TID 03/24/19 03/28/19 Insulin] multivitamin with minerals 1 tab PO DAILY 03/24/19 03/28/19 gabapentin 300 mg PO BID 03/28/19 03/28/19 lidocaine 1 patch TOPICAL DAILY 03/28/19 03/28/19 Previous Rx's Medication Instructions Recorded sertraline [Zoloft] 50 mg PO BEDTIME #30 tab 08/12/18 tramadol 100 mg PO BID #30 tab 03/09/19 Allergies Allergy/AdvReac Type Severity Reaction Status Date / Time Iodine and Iodide Containing Allergy Intermediate i get Verified 03/24/19 13:55 Produc spots all [IODINE AND IODIDE over my CONTAINING PRODUC] body Penicillins [PENICILLINS] Allergy Intermediate makes my Verified 03/24/19 13:55 bones and joints ache aspirin [ASPIRIN] Allergy Unknown Verified 03/24/19 13:55 meclizine [MECLIZINE] Allergy Unknown Verified 03/24/19 13:55 codeine [CODEINE] AdvReac Unknown gives me Verified 03/24/19 13:55 bloody nightmares potassium [POTASSIUM] AdvReac Unknown Verified 03/24/19 13:55 Review of Systems Review of Systems ROS Unobtainable: All systems reviewed & are unremarkable except as noted in HPI and below Constitutional Reports body ache(s), Reports fatigue and Reports fever(s) Eyes Denies change in vision, Denies eye discharge, Denies irritation and Denies loss of vision ENT Ears, Nose, Mouth, and Throat: Denies change in voice, Denies neck pain and Denies sore throat Cardiovascular Denies chest pain, Denies irregular heart rhythm, Denies lightheadedness, Denies palpitations, Denies dyspnea, Denies dyspnea on exertion and Denies orthopnea Respiratory Denies cough, Denies dyspnea, Denies dyspnea on exertion and Denies wheezing Gastrointestinal Gastrointestinal: Denies abdominal pain, Denies change in bowel habits, Denies diarrhea, Denies nausea and Denies vomiting Genitourinary Denies hematuria, Denies flank pain, Denies urinary incontinence and Denies urinary urgency Musculoskeletal Denies neck pain Integumentary/Breasts Reports as per HPI Comments: Chronic wounds Neurologic Denies loss of vision Endocrine Reports fatigue and Denies palpitations Allergic/Immunologic Denies wheezing [facility] Medical History Asthma (Acute) CVA (cerebral vascular accident) (Acute) Cataract (Acute) Chronic anticoagulation (Acute) Chronic pain (Acute) Depression (Acute) Diabetes (Acute) Diabetic neuropathy (Acute) H/O: hysterectomy (Acute) Hypertension (Acute) Lower extremity edema (Acute) Morbid obesity (Acute) PTSD (post-traumatic stress disorder) (Acute) Pulmonary embolism (Acute) Surgical History Hx of appendectomy (Acute) Hx of tonsillectomy (Acute) Hx of total knee arthroplasty (Acute) Family History Mother No known health problems Father Lung cancer Sister Lung cancer Tobacco dependence Social History household members: caregiver Smoking Status: Never smoker alcohol intake: former Family History Mother No known health problems Father Lung cancer Sister Lung cancer Tobacco dependence Social History household members: caregiver Smoking Status: Never smoker alcohol intake: former Exam Initial Vital Signs Initial Vital Signs: Vital Signs Temperature 101.7 F H 03/28/19 09:10 Pulse Rate 95 H 03/28/19 09:10 Respiratory Rate 22 03/28/19 09:10 Blood Pressure 142/47 H 03/28/19 09:10 Pulse Oximetry 96 03/28/19 09:10 Const General: cooperative and comfortable Nutritional Appearance: overweight Orientation: alert, awake and oriented x3 [facility] Head: normal to inspection and normocephalic Eyes General: appearance normal, both eyes and all related structures Neck Neck: normal visual inspection, full ROM and No no meningeal signs Chest Chest: normal inspection of the chest Resp Effort & Inspection: normal respiratory effort and able to speak in complete se ntences Auscultation: clear to auscultation bilaterally, no rales, no rhonchi and no wheezes Cardio Rate: regular rate Rhythm: regular rhythm Heart Sounds: no click, no gallops, no murmurs and no rubs Pulses: normal peripheral pulses GI Inspection: non-distended Palpation: soft, no hepatosplenomegaly, No guarding, No pulsatile mass and No tender Auscultation: normal bowel sounds General: No CVA tenderness Back/Spine/Pelvis Back: No CVA tenderness Skin Other: Chronic wound left leg 6 cm x 6 cm some mild drainage Neuro General: alert, oriented x3, gait normal and no focal motor deficits Speech: speech normal Course Orders Ordered: ED Orders 03/28/19 09:09 XR chest 1V Stat 03/28/19 09:15 Complete Blood Count AUTO DIFF Stat Comprehensive Metabolic Panel Stat Lactate (Lactic Acid) Stat Procalcitonin Stat 03/28/19 09:30 Wound Culture and Gram Stain Stat 03/28/19 09:50 Blood Culture Stat 03/28/19 11:20 Urine Microscopic Stat 03/28/19 15:01 Education, smoking cessation ONGOING 03/28/19 15:02 Consult to Wound Care Routine 03/28/19 15:23 MRSA PCR Stat 03/29/19 05:00 Basic Metabolic Panel Routine Complete Blood Count AUTO DIFF Routine Acetaminophen (Tylenol) 650 mg PO Q6HR PRN PRN Reason: As Needed for Fever/Mild Pain Apixaban (Eliquis) 2.5 mg PO BID ROSI Ascorbic Acid (Vitamin C) 500 mg PO DAILY ROSI Atorvastatin Calcium (Lipitor) 40 mg PO BEDTIME ROSI Calcium Carbonate (Tums) 500 mg PO PRN PRN PRN Reason: Dyspepsia Dextrose (D50w) 25 gm IV PRN PRN; Protocol PRN Reason: Hypoglycemia Erythromycin (Erythromycin Ophth Oint) 1 applic EYE-LEFT DAILY ROSI Fluticasone Propionate (Flovent Hfa) 1 puff INH RTBID PRN PRN Reason: Shortness Of Breath Gabapentin (Neurontin) 300 mg PO BID ROSI Sodium Chloride (Normal Saline 0.9%) 1,000 mls @ 200 mls/hr IV CONT ROSI Last Infusion: 03/28/19 12:56 Dose: 0 mls/hr Infusion: 03/28/19 11:45 Dose: 999 mls/hr Infusion: 03/28/19 11:37 Dose: 0 mls/hr Admin: 03/28/19 09:44 Dose: 200 mls/hr Ceftriaxone Sodium/Dextrose (Rocephin) 1 gm in 50 mls @ 100 mls/hr IV Q24H ROSI Insulin Aspart (Novolog Flexpen) 0 unit SUBCUT ACHS ROSI; Protocol Insulin Glargine (Lantus (Vial)) 10 unit SUBCUT BEDTIME ROSI Lactic Acid (Ammonium Lactate) 1 applic TOP BID ROSI Lamotrigine (Lamictal) 300 mg PO DAILY ROSI Latanoprost (Xalatan) 1 drops EYE-RIGHT BEDTIME ROSI Lidocaine (Lidoderm) 1 each TOP DAILY ROSI Nystatin (Nystop) 1 applic TOP TID PRN PRN Reason: Rash Tramadol HCl (Ultram) 100 mg PO BID ROSI Vancomycin HCl (Vancomycin Per Pharmacy) 1 request MISC DAILY ROSI Vitamin D (Vitamin D3) 1,000 unit PO DAILY ROSI Discontinued Medications Acetaminophen (Tylenol) 975 mg PO NOW ONE Stop: 03/28/19 09:08 Last Admin: 03/28/19 09:45 Dose: 975 mg Vancomycin HCl/Dextrose (Vancomycin) 1,500 mg in 300 mls @ 200 mls/hr IV NOW ONE Stop: 03/28/19 11:18 Last Infusion: 03/28/19 12:54 Dose: 0 mls/hr Admin: 03/28/19 11:21 Dose: 200 mls/hr Ceftriaxone Sodium/Dextrose (Rocephin) 1 gm in 50 mls @ 100 mls/hr IV NOW ONE Stop: 03/28/19 10:18 Last Infusion: 03/28/19 11:00 Dose: 0 mls/hr Admin: 03/28/19 10:19 Dose: 100 mls/hr Sodium Chloride (Normal Saline 0.9%) 1,000 mls @ 1,000 mls/hr IV BOLUS ONE Stop: 03/28/19 12:45 Last Infusion: 03/28/19 15:28 Dose: 0 mls/hr Infusion: 03/28/19 12:59 Dose: 1,000 mls/hr Admin: 03/28/19 12:56 Dose: 1,000 mls/hr Consultations Consultation #1: Dr. Chowdhury, updated on patient's test results agrees with vancomycin Rocephin and admission. Time: 11:42 Vital Signs - 8 hr 03/28/19 09:10 03/28/19 09:30 03/28/19 09:45 Temperature 101.7 F H 101.8 F H Pulse Rate 95 H 84 Respiratory Rate 22 23 Blood Pressure 142/47 H Blood Pressure [Left Arm] 120/46 L Pulse Oximetry 96 03/28/19 10:35 03/28/19 11:00 03/28/19 11:30 Temperature Pulse Rate 85 74 70 Respiratory Rate 21 18 17 Blood Pressure Blood Pressure [Left Arm] 106/71 110/37 L 88/32 L Pulse Oximetry 95 03/28/19 11:36 03/28/19 11:43 03/28/19 12:03 Temperature 98.6 F Pulse Rate 67 62 Respiratory Rate 17 18 Blood Pressure Blood Pressure [Left Arm] 100/36 L 100/52 L Pulse Oximetry 94 100 03/28/19 12:30 03/28/19 14:30 Temperature 98.8 F Pulse Rate 57 L 78 Respiratory Rate 18 18 Blood Pressure 138/54 L Blood Pressure [Left Arm] 93/39 L Pulse Oximetry 91 92 MDM - Fever Lab Data Attestation: I reviewed the patient's lab results. Result diagrams: 03/28/19 09:15 03/28/19 09:15 Lab Results 03/28/19 03/28/19 03/28/19 Range/Units 09:15 09:15 09:15 WBC 15.9 H (4.5-11.0) X10^3/uL RBC 4.11 (4.0-5.2) X10^6/uL Hgb 12.7 (12.0-16.0) g/dL Hct 37.1 (36-46) % MCV 90.2 (80-100) fL MCH 30.9 (26-34) PG MCHC 34.3 (30-36) % RDW 14.8 (11.6-14.8) % Plt Count 254 (150-400) X10^3/uL Neut % (Auto) 89.4 H (50-75) % Lymph % (Auto) 3.9 L (25-40) % [place] % (Auto) 5.1 (3-14) % Eos % (Auto) 1.3 L (2-4) % Baso % (Auto) 0.3 (0-2) % Neut # (Auto) 47943 H (0786-0126) /uL Lymph # (Auto) 600 L (5511-0629) /uL [place] # (Auto) 800 (0-900) /uL Eos # (Auto) 200 (0-450) /uL Baso # (Auto) 0 (0-100) /uL Sodium 140 (137-145) mmol/L Potassium 4.1 (3.4-5.1) mmol/L Chloride 101 (98-107) mmol/L Carbon Dioxide 30 (22-32) mmol/L BUN 16 (7-17) mg/dL Creatinine 1.80 H (0.52-1.04) mg/dL Estimated GFR 27.3 L (>60) mL/min BUN/Creatinine Ratio 8.9 (6-22) Glucose 277 H (80-110) mg/dL Lactate (0.7-2.1) mmol/L Calcium 10.0 (8.4-10.2) mg/dL Total Bilirubin 0.6 (0.2-1.3) mg/dL AST 14 (14-36) IU/L ALT 12 (9-52) IU/L Alkaline Phosphatase 154 H (38-126) U/L Total Protein 7.2 (6.3-8.2) g/dL Albumin 3.9 (3.5-5.0) g/dL Globulin 3.3 (1.7-4.1) g/dL Albumin/Globulin Ratio 1.2 (1.0-2.8) Procalcitonin 0.11 (<0.5) ng/mL Urine RBC (0-5/HPF) Urine WBC (0-5/HPF) Ur Squamous Epith Cells (0-5/HPF) Urine Bacteria (None) Ur Culture Indicated? 03/28/19 03/28/19 Range/Units 09:15 11:20 WBC (4.5-11.0) X10^3/uL RBC (4.0-5.2) X10^6/uL Hgb (12.0-16.0) g/dL Hct (36-46) % MCV (80-100) fL MCH (26-34) PG MCHC (30-36) % RDW (11.6-14.8) % Plt Count (150-400) X10^3/uL Neut % (Auto) (50-75) % Lymph % (Auto) (25-40) % [place] % (Auto) (3-14) % Eos % (Auto) (2-4) % Baso % (Auto) (0-2) % Neut # (Auto) (5641-5892) /uL Lymph # (Auto) (6707-7969) /uL [place] # (Auto) (0-900) /uL Eos # (Auto) (0-450) /uL Baso # (Auto) (0-100) /uL Sodium (137-145) mmol/L Potassium (3.4-5.1) mmol/L Chloride (98-107) mmol/L Carbon Dioxide (22-32) mmol/L BUN (7-17) mg/dL Creatinine (0.52-1.04) mg/dL Estimated GFR (>60) mL/min BUN/Creatinine Ratio (6-22) Glucose (80-110) mg/dL Lactate 1.8 (0.7-2.1) mmol/L Calcium (8.4-10.2) mg/dL Total Bilirubin (0.2-1.3) mg/dL AST (14-36) IU/L ALT (9-52) IU/L Alkaline Phosphatase (38-126) U/L Total Protein (6.3-8.2) g/dL Albumin (3.5-5.0) g/dL Globulin (1.7-4.1) g/dL Albumin/Globulin Ratio (1.0-2.8) Procalcitonin (<0.5) ng/mL Urine RBC 1-5/hpf (0-5/HPF) Urine WBC 5-10/hpf H (0-5/HPF) Ur Squamous Epith Cells 5-10 /hpf H (0-5/HPF) Urine Bacteria None seen (None) Ur Culture Indicated? Cult not indicated Point of Care Testing Glucose POC 284 Urine Dip Bedside Urine Glucose 500 mg/dl Bedside Urine Bilirubin - Negative Bedside Urine Ketone - Negative Urine Specific [place] 1.020 Bedside Urine Occult Blood +/- Bedside Urine pH 6.5 Bedside Urine Protein + 30 Bedside Urine Urobilinogen - Negative Bedside Urine Nitrite - Negative Bedside Urine Leukocytes ++ 125 Esterase Imaging Data Chest x-ray: Radiologist's impression: PROCEDURE: XR CHEST 1V INDICATIONS: fever TECHNIQUE: One view of the chest was acquired. COMPARISON: [facility], CT, PE STUDY (CTA CHEST), 09/07/2016, 20:57. [facility], CR, CHEST 1 VIEW, 06/04/2017, 20:31. [facility], CR, CHEST 1 VIEW, 01/18/2018, 5:30. [facility], CR, XR CHEST 1V, 08/08/2018, 2:58. [facility], CR, XR CHEST 1V, 03/07/2019, 20:05. FINDINGS: Surgical changes and devices: None. Lungs and pleura: An incomplete inspiratory result is noted, causing a crowded appearance to the lung markings. No focal infiltrates are seen. No pneumothorax or significant pleural effusions are seen. Mediastinum: The cardiac contours are mildly enlarged. The aorta demonstrates calcification and tortuosity. Bones and chest wall: No suspicious bony lesions. Age-appropriate bony degenerative changes are seen. Overlying soft tissues appear unremarkable. IMPRESSION: Limited portable chest study, without a focal infiltrate identified. Mild cardiomegaly. Dictated by: Matthew Shi M.D. on 03/28/2019 at 8:51 Approved by: Matthew Shi M.D. on 03/28/2019 at 8:53 MDM Narrative Medical decision making narrative: Blood pressure is relatively stable. Sleeping lying down. When she wakes up blood pressure improves. She did receive IV fluids and empiric antibiotics. Wound culture urine culture and blood culture sent. She has a normal lactic acid. Infection is likely from her left lower extremity. She does have some erythema around her chronic wound. She is febrile with leukocytosis and frequent falls and frequent visits to the ED lately. She apparently was recently on doxycycline and Keflex. Dr. Chowdhury, accepts patient for admission. Discharge Plan Departure Patient Disposition: Admitted As Inpatient Clinical Impression: Cellulitis of left leg Discharge Date/Time: 03/28/19 13:07 Interventions: ED Discharge Assessment Last Done: 03/28/19 12:53 Admit Date/Time: 03/28/19 12:03 Admit Provider: Halley Chowdhury
[2019-03-28 09:42] LABS: Lactate (Lactic Acid) 1.8 mmol/L (0.7-2.1)
[2019-03-28] MEDS: SODIUM CHLORIDE 0.9% 1,000 ML 200 ML IV (09:44)
[2019-03-28 09:45] LABS: Add Manual Diff / Slide Review NO; Alanine Aminotransferase 12 IU/L (9-52); Albumin 3.9 g/dL (3.5-5.0); Albumin Globulin Ratio 1.2 (1.0-2.8); Alkaline Phosphatase 154 U/L (38-126); Aspartate Aminotransferase 14 IU/L (14-36); BUN Creatinine Ratio 8.9 (6-22); Basophils Absolute Auto 0 /uL (0-100); Basophils Percent Auto 0.3 % (0-2); Bilirubin Total 0.6 mg/dL (0.2-1.3); Blood Urea Nitrogen 16 mg/dL (7-17); Carbon Dioxide 30 mmol/L (22-32); Chloride 101 mmol/L (98-107); Eosinophils Absolute Auto 200 /uL (0-450); Eosinophils Percent Auto 1.3 % (2-4); Estimated Glomerular Filt Rate 27.3 mL/min (>60); Globulin 3.3 g/dL (1.7-4.1); Glucose 277 mg/dL (80-110); HEMOLYSIS < 15 (0-50); Hematocrit 37.1 % (36-46); Hemoglobin 12.7 g/dL (12.0-16.0); Lymphocytes Absolute Auto 600 /uL (1100-4500); Lymphocytes Percent Auto 3.9 % (25-40); Mean Corpuscular HGB Conc 34.3 % (30-36); Mean Corpuscular Hemoglobin 30.9 PG (26-34); Mean Corpuscular Volume 90.2 fL (80-100); Monocytes Absolute Auto 800 /uL (0-900); Monocytes Percent Auto 5.1 % (3-14); Neutrophils Absolute Auto 14300 /uL (1500-7000); Neutrophils Percent Auto 89.4 % (50-75); Platelet Count 254 X10^3/uL (150-400); Potassium 4.1 mmol/L (3.4-5.1); Red Blood Cell Count 4.11 X10^6/uL (4.0-5.2); Red Cell Distribution Width 14.8 % (11.6-14.8); Sodium 140 mmol/L (137-145); Total Protein 7.2 g/dL (6.3-8.2); White Blood Cell Count 15.9 X10^3/uL (4.5-11.0)
[2019-03-28] MEDS: ACETAMINOPHEN 325 MG TABLET 975 MG PO (09:45)
[2019-03-28 10:02] LABS: Procalcitonin 0.11 ng/mL (<0.5)
--- NOTE | 2019-03-28 10:05 | PC.NURSE ---
measured wound and obtained culture
[2019-03-28] MEDS: CEFTRIAXONE 1 GM/50 ML FROZ.PIGGY IV (10:19)
[2019-03-28] MEDS: VANCOMYCIN 1,500 MG/300 ML FROZ.PIGGY 200 MG IV (11:21)
[2019-03-28 11:25] LABS: Bacteria Urine None Seen
[2019-03-28 11:30] LABS: Culture Indicated Urine Cult Not Indicated; RBC Urine 1-5/HPF (0-5/HPF); Squamous Epithelial Cell Urine 5-10 /HPF (0-5/HPF); WBC Urine 5-10/HPF (0-5/HPF)
[2019-03-28] MEDS: SODIUM CHLORIDE 0.9% 1,000 ML 1000 ML IV (12:56)
--- NOTE | 2019-03-28 14:21 | P.HP_ITS ---
History of Present Illness Date Patient Seen: 03/28/19 Time Patient Seen: 14:13 Chief complaint: L Lower Leg Cellulitis Narrative: 78-year-old female with PMH of HTN, DM 2T, CVA, PE on chronic anticoagulation with Eliquis, CKD IV, BL LE venous insufficiency, recurrent UTIs, depression, and chronic pain syndrome presented to ED from [facility] with fever and AMS. Patient is AAOx2 during the time of my interview therefore most of the history was obtained from records. Patient has been residing at [facility] for quite some time, although patient tells me only few days. She has history or recurrent falls with lacerations to her lower extremities. She has been admitted with Acute encephalopathy on 03/08/19 and was found to have LLE laceration that has already been adressed with sutures. She then had another fall episode on 03/24/19 and was seen in ED...at that time LLE laceration was noted (unsure if same or not) and patient got 9 sutures to it and was sent back home. Today patient was transported to ED because she was noted to have fever at the skilled nursing. No other report was available. Patient herself states she fell again 2 days ago and again bumped her LLE. She has been going to wound care clinic for a while but was recently fired from there due to aggressive behavior. She herself denies any fever but has been having chills. She deneis any nausea/vomiting/diarrhea/abd pain. Denies any CP or SOB. Denies LOC/headache/blurry vision. Denies symptoms. In ED, patient's vitals revealed BP 110/37, P 74, RR18, Saturating 95% on RA, temp 101.7F. Lab work revealed WBC of 15.9, hemoglobin 12.7, hematocrit 37.1, platelet count 254. Sodium was 140, potassium 4.1, chloride 101, carbon dioxide 30, BUN 16, creatinine 1.8 (which seems to be her baseline), BUN 16. lactate was normal at 1.8, procalcitonin was normal at 1. UA showed 5-10 WBCs however was a dirty draw. Chest x-ray revealed limited portable chest study given patient's body habitus, however no focal infiltrates or fluid were identified. There was mild cardiomegaly. On exam patient was noted to have bilateral stasis dermatitis with left lower extremity open wound, with mild cirrhosis drainage from it and erythema, swelling, warmth to left lower extremity more than the right. Patient was given 1 L normal saline bolus, Tylenol p.o., and ceftriaxone/vancomycin IV. She was then admitted to general medical floor for treatment of left lower extremity cellulitis. Patient History Medical History Asthma (Acute) CVA (cerebral vascular accident) (Acute) Cataract (Acute) Chronic anticoagulation (Acute) Chronic pain (Acute) Depression (Acute) Diabetes (Acute) Diabetic neuropathy (Acute) H/O: hysterectomy (Acute) Hypertension (Acute) Lower extremity edema (Acute) Morbid obesity (Acute) PTSD (post-traumatic stress disorder) (Acute) Pulmonary embolism (Acute) Surgical History Hx of appendectomy (Acute) Hx of tonsillectomy (Acute) Hx of total knee arthroplasty (Acute) Family History Mother No known health problems Father Lung cancer Sister Lung cancer Tobacco dependence Social History household members: caregiver Smoking Status: Never smoker alcohol intake: former Family & Social History Family History Mother No known health problems Father Lung cancer Sister Lung cancer Tobacco dependence Social History: household members caregiver Safety & Behavioral: Feels Safe in Current Yes Environment Been Physically Hurt or No Threatened By a Person Tobacco & Substance use: Smoking Status Never smoker alcohol intake former alcohol intake frequency 0-2 drinks per day Substance Use Type does not use Meds Home Medications Medication Instructions Recorded Confirmed Type Flovent Diskus 100 mcg INH BIDP PRN #0 09/08/16 03/28/19 History lamotrigine [Lamictal] 300 mg PO DAILY #0 09/08/16 03/28/19 History docusate sodium 200 mg PO QDAYP PRN #0 07/10/17 03/28/19 History atorvastatin 40 mg PO DAILY #0 01/18/18 03/28/19 History ascorbic acid (vitamin C) [Vitamin 500 mg PO DAILY 04/01/18 03/28/19 History C] furosemide [Lasix] 40 mg PO DAILY 04/01/18 03/28/19 History erythromycin 0.5 inch EYE-LEFT DAILY 08/08/18 03/28/19 History latanoprost 1 drp EYE-RIGHT DAILY 08/08/18 03/28/19 History sertraline [Zoloft] 50 mg PO BEDTIME #30 tab 08/12/18 03/28/19 Rx Eucerin Original 1 applic TOPICAL BID 08/13/18 03/28/19 History ammonium lactate 1 applic TOPICAL BID #0 08/13/18 03/28/19 History cholecalciferol (vitamin D3) 1,000 unit PO DAILY 08/13/18 03/28/19 History [Vitamin D3] glipizide 10 mg PO BID 08/13/18 03/28/19 History Lantus Solostar U-100 Insulin 10 unit SUBCUT BID 03/07/19 03/28/19 History acetaminophen 650 mg PO Q6H PRN 03/07/19 03/28/19 History albuterol sulfate [ProAir HFA] 2 puff INHALATION Q4H PRN 03/07/19 03/28/19 History guaifenesin [Cough Syrup] 10 ml PO Q4H PRN 03/07/19 03/28/19 History loratadine [Claritin] 10 mg PO DAILY PRN 03/07/19 03/28/19 History lorazepam [Ativan] 1 mg PO Q4HR PRN 03/07/19 03/28/19 History trazodone 50 mg PO BEDTIME PRN 03/07/19 03/28/19 History nystatin 1 applic TOPICAL TID PRN 03/08/19 03/28/19 History quetiapine 50 mg PO BID 03/08/19 03/28/19 History tramadol 100 mg PO BID #30 tab 03/09/19 03/28/19 Rx apixaban [Eliquis] 2.5 mg PO BID 03/24/19 03/28/19 History calcium carbonate [Tums] 1 - 2 tab PO Q4H PRN 03/24/19 03/28/19 History insulin lispro [Humalog KwikPen 1 dose SUBCUT TID 03/24/19 03/28/19 History Insulin] multivitamin with minerals 1 tab PO DAILY 03/24/19 03/28/19 History gabapentin 300 mg PO BID 03/28/19 03/28/19 History lidocaine 1 patch TOPICAL DAILY 03/28/19 03/28/19 History Allergies Allergy/AdvReac Type Severity Reaction Status Date / Time Iodine and Iodide Containing Allergy Intermediate i get Verified 03/24/19 13:55 Produc spots all [IODINE AND IODIDE over my CONTAINING PRODUC] body Penicillins [PENICILLINS] Allergy Intermediate makes my Verified 03/24/19 13:55 bones and joints ache aspirin [ASPIRIN] Allergy Unknown Verified 03/24/19 13:55 meclizine [MECLIZINE] Allergy Unknown Verified 03/24/19 13:55 codeine [CODEINE] AdvReac Unknown gives me Verified 03/24/19 13:55 bloody nightmares potassium [POTASSIUM] AdvReac Unknown Verified 03/24/19 13:55 Review of Systems Review of Systems All systems reviewed & are unremarkable except as noted in HPI and below and unobtainable due to mental status Exam Vital Signs (past 8 hours): - 03/28/19 09:10 03/28/19 09:30 03/28/19 09:45 Temperature 101.7 F H 101.8 F H Pulse Rate 95 H 84 Respiratory Rate 22 23 Blood Pressure 142/47 H Blood Pressure [Left Arm] 120/46 L Pulse Oximetry 96 03/28/19 10:35 03/28/19 11:00 03/28/19 11:30 Temperature Pulse Rate 85 74 70 Respiratory Rate 21 18 17 Blood Pressure Blood Pressure [Left Arm] 106/71 110/37 L 88/32 L Pulse Oximetry 95 03/28/19 11:36 03/28/19 11:43 03/28/19 12:03 Temperature 98.6 F Pulse Rate 67 62 Respiratory Rate 17 18 Blood Pressure Blood Pressure [Left Arm] 100/36 L 100/52 L Pulse Oximetry 94 100 03/28/19 12:30 Temperature Pulse Rate 57 L Respiratory Rate 18 Blood Pressure Blood Pressure [Left Arm] 93/39 L Pulse Oximetry 91 Oxygen Delivery Method Room Air Narrative Exam Narrative: General: No acute distress, AAO x2, lying comfortably in bed HEENT: Normocephalic, atraumatic, PERRLA and EOMI bilaterally. Moist mucous membranes Neck: Supple, short and obese, no LAD or JVD CV: Regular rate rhythm, no murmurs or gallops appreciated Respiratory: Clear to auscultation bilaterally, no wheezing or crackles appreciated GI: Obese abdomen with no organomegaly. Nontender and nondistended. Positive bowel sounds in all 4 quadrants Musculoskeletal: Moves all extremities bilaterally Extremities: Bilateral lower extremity stasis dermatitis. Left lower extremity gaping wound about 2 in in diameter which seems to be in the healing process however has some serous oozing from it. Surrounded by erythema and swelling. Lateral to this open wound there is closed 1 with [address] Neuro: No focal deficits, patient is AO x2 Psych: Appropriate mood and affect. No aggressive behavior noted Objective Labs Result Diagrams: 03/28/19 09:15 03/28/19 09:15 Labs: Laboratory Results - last 24 hr 03/28/19 03/28/19 03/28/19 09:15 09:15 09:15 WBC 15.9 H RBC 4.11 Hgb 12.7 Hct 37.1 MCV 90.2 MCH 30.9 MCHC 34.3 RDW 14.8 Plt Count 254 Neut % (Auto) 89.4 H Lymph % (Auto) 3.9 L Sullivan % (Auto) 5.1 Eos % (Auto) 1.3 L Baso % (Auto) 0.3 Neut # (Auto) 40557 H Lymph # (Auto) 600 L Sullivan # (Auto) 800 Eos # (Auto) 200 Baso # (Auto) 0 Sodium 140 Potassium 4.1 Chloride 101 Carbon Dioxide 30 BUN 16 Creatinine 1.80 H Estimated GFR 27.3 L BUN/Creatinine Ratio 8.9 Glucose 277 H Lactate Calcium 10.0 Total Bilirubin 0.6 AST 14 ALT 12 Alkaline Phosphatase 154 H Total Protein 7.2 Albumin 3.9 Globulin 3.3 Albumin/Globulin Ratio 1.2 Procalcitonin 0.11 Urine RBC Urine WBC Ur Squamous Epith Cells Urine Bacteria Ur Culture Indicated? 03/28/19 03/28/19 09:15 11:20 WBC RBC Hgb Hct MCV MCH MCHC RDW Plt Count Neut % (Auto) Lymph % (Auto) Sullivan % (Auto) Eos % (Auto) Baso % (Auto) Neut # (Auto) Lymph # (Auto) Sullivan # (Auto) Eos # (Auto) Baso # (Auto) Sodium Potassium Chloride Carbon Dioxide BUN Creatinine Estimated GFR BUN/Creatinine Ratio Glucose Lactate 1.8 Calcium Total Bilirubin AST ALT Alkaline Phosphatase Total Protein Albumin Globulin Albumin/Globulin Ratio Procalcitonin Urine RBC 1-5/hpf Urine WBC 5-10/hpf H Ur Squamous Epith Cells 5-10 /hpf H Urine Bacteria None seen Ur Culture Indicated? Cult not indicated Assessment & Plan Assessment & Plan narrative: 78-year-old female with PMH of HTN, DM 2T, CVA, PE on chronic anticoagulation with Eliquis, CKD IV, BL LE venous insufficiency, recurrent UTIs, depression, and chronic pain syndrome presented to ED from [facility] with fever and AMS. She was found to have LLE open wound with surrounding cellulitis. Admitted for further management. 1. Left lower extremity open wound with surrounding cellulitis, present on admission, acute -patient is hemodynamically stable, although had two low blood pressure readings, likely an error given patient's body habitus...resolved spontaneously -Fever of 101.7F on admission, now afebrile -WBC of 15.9 but normal lactate and procalcitonin -Patient was given Ceftriaxone and Vancomycin IV in ED...will continue at this time -Wound and blood cultures pending -Will get wound care consult 2. Acute encephalopathy, present on admission -it is unclear whether not patient has cognitive impairment at [facility], however here she is AAO x2 -possibly due to acute infection -patient is protecting her airways, not an aggressive behavior -continue treatment for cellulitis of left lower extremity and monitor mental status changes 3. Hypertension, chronic, stable -blood pressure stable at this time -will hold all blood pressure medications given the 2 low blood pressure readings -monitor blood pressure 4. Diabetes type 2 , insulin-dependent, present on admission - blood glucose 277 on admission, likely due to acute infection -resume patient's home regimen of Lantus 10 units b.i.d. -continue blood glucose checks a.c. HS and low-dose correctional sliding scale -will hold glipizide while inpatient -diabetic diet 4. History of PE -on chronic anticoagulation with Eliquis -resume home dose regimen 5. CKD stage 4, chronic, present on admission, active -a BUN and creatinine are both at baseline -avoid nephrotoxins and monitor renal function -it is unclear whether or not patient has seen Nephrology in the outpatient basis as was recommended on prior admission 6. Hyperlipidemia, chronic, present on admission, stable -continue atorvastatin 40 mg p.o. daily 7. Depression and anxiety -will hold home regimen quetiapine, trazodone, and sertraline given patient's acute encephalopathy, and resume once stable Patient states she is DNR DNI, however per records from [facility], patient is full code will therefore treat her as full code as she has acute encephalopathy at this time DVT prophylaxis on Eliquis Disposition: Patient is here with left lower extremity cellulitis. Will treat accordingly
--- NOTE | 2019-03-28 15:30 | PC.NURSE ---
PT ADMITTED MOSTLY FROM MED RECS DUE TO PTS LACK OF AWARENESS/TIME ORIENTATION. HER LUNGS ARE DIM AT BASES OTHERWISE CLEAR , SPO2 92%, OPEN SKIN ULCER TO LEFT LOWER EXTREMITY CLEANSED AND DRESSED WITH ALLEVYN DRSG- NOTED TO HAVE SUTURES X 9 JUST LATERAL OF THIS WOUND- SHE IS DIABETIC AND HAS NOT TAKEN HER MEDS YET DATE-PT IS POOR HISTORIAN- VOIDING PER BSC
[2019-03-28] MEDS: INSULIN ASPART 100 UNIT/ML INSULN PEN SUBCUT ×2 (17:04→21:31)
--- NOTE | 2019-03-28 20:05 | PC.NURSE ---
1999 - Patient transferred to room 211. Report given to receiving RN.
[2019-03-28] MEDS: AMMONIUM LACTATE 1 APPLIC TOP (20:56)
[2019-03-28] MEDS: APIXABAN 5 MG TABLET 2.5 MG PO (20:56)
[2019-03-28] MEDS: GABAPENTIN 300 MG CAPSULE PO (20:57)
[2019-03-28] MEDS: LATANOPROST 0.005% OPHTH 2.5 ML 1 DROPS EYE-RIGHT (20:57)
[2019-03-28] MEDS: ATORVASTATIN 20 MG TABLET 40 MG PO (20:57)
[2019-03-28] MEDS: TRAMADOL 50 MG TABLET 100 MG PO (21:29)
[2019-03-28] MEDS: INSULIN GLARGINE 100 UNIT/ML 10ML VIAL 10 UNIT SUBCUT (21:35)
[2019-03-29] VITALS (9 sets, daily range): BP systolic 117–143; BP diastolic 55–70; PULSE 57–65; RESP 15–18; TEMP 36.4–37.7; O2SAT 93–96
--- NOTE | 2019-03-29 05:11 | PC.NURSE ---
Denies any pain all shift, up to the BSC x 2 & voided total 450 cc of dark yellow urine. Pt. calmed, cooperative & appreciative with the staff for the assistance & care. Will cont. POC & monitor.
[2019-03-29 05:58] LABS: Add Manual Diff / Slide Review NO; Basophils Absolute Auto 100 /uL (0-100); Basophils Percent Auto 0.6 % (0-2); Eosinophils Absolute Auto 200 /uL (0-450); Eosinophils Percent Auto 2.7 % (2-4); Hemoglobin 11.4 g/dL (12.0-16.0); Lymphocytes Absolute Auto 1200 /uL (1100-4500); Lymphocytes Percent Auto 13.1 % (25-40); Mean Corpuscular HGB Conc 33.6 % (30-36); Mean Corpuscular Hemoglobin 30.7 PG (26-34); Mean Corpuscular Volume 91.3 fL (80-100); Monocytes Absolute Auto 600 /uL (0-900); Neutrophils Absolute Auto 6700 /uL (1500-7000); Neutrophils Percent Auto 76.6 % (50-75); Platelet Count 229 X10^3/uL (150-400); Red Blood Cell Count 3.72 X10^6/uL (4.0-5.2); Red Cell Distribution Width 15.1 % (11.6-14.8); White Blood Cell Count 8.8 X10^3/uL (4.5-11.0)
[2019-03-29 05:59] LABS: BUN Creatinine Ratio 9.4 (6-22); Blood Urea Nitrogen 16 mg/dL (7-17); Calcium 9.4 mg/dL (8.4-10.2); Carbon Dioxide 28 mmol/L (22-32); Chloride 104 mmol/L (98-107); Estimated Glomerular Filt Rate 29.1 mL/min (>60); Glucose 172 mg/dL (80-110); HEMOLYSIS < 15 (0-50); Sodium 138 mmol/L (137-145)
[2019-03-29] MEDS: SODIUM CHLORIDE 0.9% 1,000 ML 50 ML IV (06:59)
--- NOTE | 2019-03-29 07:25 | PC.NURSE ---
Denies pain all shift. Ambulated to the BR. x3, voided & emptied ostomy by himself. Was not able to measure, voided x3 & 1 unmeasured.
[2019-03-29] MEDS: INSULIN ASPART 100 UNIT/ML INSULN PEN SUBCUT ×4 (08:25→21:19)
[2019-03-29] MEDS: CHOLECALCIFEROL (VITAMIN D3) 1,000 UNIT TABLET 1000 UNIT PO (08:26)
[2019-03-29] MEDS: GABAPENTIN 300 MG CAPSULE PO ×2 (08:26→21:22)
[2019-03-29] MEDS: APIXABAN 5 MG TABLET 2.5 MG PO ×2 (08:27→21:20)
[2019-03-29] MEDS: AMMONIUM LACTATE 1 APPLIC TOP ×2 (08:28→21:22)
[2019-03-29] MEDS: ASCORBIC ACID 500 MG TABLET PO (08:28)
[2019-03-29] MEDS: TRAMADOL 50 MG TABLET 100 MG PO ×2 (08:31→21:18)
[2019-03-29] MEDS: lamoTRIgine 100 MG TABLET 300 MG PO (08:32)
[2019-03-29] MEDS: LIDOCAINE PATCH 1 EACH ADH..PATCH TOP (08:32)
[2019-03-29] MEDS: ERYTHROMYCIN OPHTH 1 GM OINT 1 APPLIC EYE-LEFT (08:33)
[2019-03-29] MEDS: NYSTATIN POWDER 30 GM 1 APPLIC TOP (08:41)
[2019-03-29] MEDS: FLUTICASONE 110MCG HFA 120 PUFF INH (08:46)
--- NOTE | 2019-03-29 09:52 | CM.DANOTE ---
DCP: Case received. EMR reviewed. Called and spoke to Jacqueline, admissions at [facility] regarding patient's baseline needs. DCP assessment template completed based on her information. Patient is a 78 year old female who admitted yesterday afternoon to the care of the hospitalist team. PCP: Dr. Rodriguez. Payer: confirmed: Medicare/[employer]. Patient came to hospital via ambulance secondary to fever, and redness to her left leg. She currently holds diagnosis of cellulitis. Patient was resting in her room with door closed. She resides at [facility], and was here in ER recently due to a fall, on 03/24. She has a son that lives here in [place]. Jacqueline stated that patient is pretty independent in her room, and uses a FWW. She has her meals in her room. Patient had been going to wound clinic, but they are no longer seeing her. According to Jacqueline, she had gotten upset when she went to her appt, and wanted an x-ray of her wrist. She has strucken one of the staff members when they would not oblige, since they stated that she was there for her wound. At this time, she is getting home health nursing, through [facility], for wound care. Jacqueline stated that if she is ready to be discharged today, she does not have to assess. If it's tomorrow, since it will be 48 hours, she will need to evaluate. Let her know that this correctional casework specialist would update her. P: Discussed at team rounds. Dr. Chapa will be seeing her, she stated that her cultures came out negative. She should be able to return to [facility] when medically stable. Alison Núñez RN/[employer]
[2019-03-29] MEDS: CEFTRIAXONE 1 GM/50 ML FROZ.PIGGY IV (10:57)
[2019-03-29] MEDS: VANCOMYCIN 750 MG/150 ML FROZ.PIGGY 150 MG IV (11:25)
--- NOTE | 2019-03-29 13:50 | PC.NURSE ---
Cassie has been cooperative and pleasant. MONIKA drsg. was noted to have some drainage; Reena drsg. replaced after gentle cleansing with saline. Wound bed pink with granulation tissue present. No oder. Surrounding tissue red and warm to touch. Suture line adjacent to wound intact and edges well approximated. Cassie denies pain.
--- NOTE | 2019-03-29 13:57 | P.PN_ITS ---
Subjective Date Patient Seen: 03/29/19 Interval history: Patient seen and examined, chart reviewed. Patient reports no pain and she has neuropathy. She denies any shortness of breath. She denies any diarrhea. Patient notes she did not have a bowel movement for 4 days and had a big BM yesterday and feels significantly relieved. Exam Vital Signs (past 8 hours): - 03/29/19 08:00 03/29/19 12:00 Temperature 99.8 F H 98.3 F Pulse Rate 65 57 L Respiratory Rate 16 15 Blood Pressure 125/56 L 117/61 Pulse Oximetry 94 96 Oxygen Delivery Method Room Air Oxygen Flow Rate 0 Narrative Exam Narrative: Pleasant female resting comfortably Lungs: Clear to auscultation Cardiac exam: Regular rate and rhythm normal S1 and S2 with a 2/6 systolic ejection murmur Abdomen: Soft nontender nondistended Extremities: Bilateral erythema from the mid calf down to the ankles. There is a bandage over the wound on the left lower extremity. The legs are warm. There is no pain or tenderness to touch. Objective Labs Result Diagrams: 03/29/19 05:20 03/29/19 05:20 Labs: Laboratory Results - last 24 hr 03/28/19 03/29/19 03/29/19 14:15 05:20 05:20 WBC 8.8 RBC 3.72 L Hgb 11.4 L Hct 34.0 L MCV 91.3 MCH 30.7 MCHC 33.6 RDW 15.1 H Plt Count 229 Neut % (Auto) 76.6 H Lymph % (Auto) 13.1 L Josephine % (Auto) 7.0 Eos % (Auto) 2.7 Baso % (Auto) 0.6 Neut # (Auto) 6700 Lymph # (Auto) 1200 Josephine # (Auto) 600 Eos # (Auto) 200 Baso # (Auto) 100 Sodium 138 Potassium 4.0 Chloride 104 Carbon Dioxide 28 BUN 16 Creatinine 1.70 H Estimated GFR 29.1 L BUN/Creatinine Ratio 9.4 Glucose 172 H D Calcium 9.4 Nasal Screen MRSA (PCR) Negative for mrsa Assessment & Plan Assessment & Plan narrative: eft lower extremity open wound with surrounding cellulitis, present on admission, acute -patient is hemodynamically stable, although had two low blood pressure readings, likely an error given patient's body habitus...resolved spontaneously -Fever of 101.7F on admission, now afebrile -WBC of 15.9 but normal lactate and procalcitonin -Patient was given Ceftriaxone and Vancomycin IV in ED...will continue at this time -Wound and blood cultures pending -Will get wound care consult 2. Acute encephalopathy, present on admission -it is unclear whether not patient has cognitive impairment at [facility], however here she is AAO x2 -possibly due to acute infection -patient is protecting her airways, not an aggressive behavior -continue treatment for cellulitis of left lower extremity and monitor mental status changes 3. Hypertension, chronic, stable -blood pressure stable at this time -will hold all blood pressure medications given the 2 low blood pressure readings -monitor blood pressure 4. Diabetes type 2 , insulin-dependent, present on admission - blood glucose 277 on admission, likely due to acute infection -resume patient's home regimen of Lantus 10 units b.i.d. -continue blood glucose checks a.c. HS and low-dose correctional sliding scale -will hold glipizide while inpatient -diabetic diet 4. History of PE -on chronic anticoagulation with Eliquis -resume home dose regimen 5. CKD stage 4, chronic, present on admission, active -a BUN and creatinine are both at baseline -avoid nephrotoxins and monitor renal function -it is unclear whether or not patient has seen Nephrology in the outpatient basis as was recommended on prior admission 6. Hyperlipidemia, chronic, present on admission, stable -continue atorvastatin 40 mg p.o. daily 7. Depression and anxiety -will hold home regimen quetiapine, trazodone, and sertraline given patient's acute encephalopathy, and resume once stable
[2019-03-29] MEDS: INSULIN GLARGINE 100 UNIT/ML 10ML VIAL 10 UNIT SUBCUT (21:19)
[2019-03-29] MEDS: ATORVASTATIN 20 MG TABLET 40 MG PO (21:20)
[2019-03-29] MEDS: LATANOPROST 0.005% OPHTH 2.5 ML 1 DROPS EYE-RIGHT (21:20)
[2019-03-30] MEDS: FLUTICASONE 110MCG HFA 120 PUFF INH (01:45)
[2019-03-30 01:46] VITALS: O2SAT 97
--- NOTE | 2019-03-30 02:24 | PC.NURSE ---
Dumbwaiter Operator Note: 0020: Awake, resting in bed. IV in place in lt wrist with NS infusing at 50cc/hr. Lt leg elevated on pillow. Redness to lt beltran extends from mid-way to ankle. Allevyn dressing intact to lt beltran.
[2019-03-30 03:50] VITALS: BP 181/73; PULSE 64; RESP 18; TEMP 37; O2SAT 93
[2019-03-30 08:00] VITALS: BP 149/82; PULSE 69; RESP 16; TEMP 36.6; O2SAT 96
[2019-03-30 08:34] VITALS: O2SAT 96
[2019-03-30] MEDS: INSULIN ASPART 100 UNIT/ML INSULN PEN SUBCUT ×2 (08:38→12:33)
[2019-03-30] MEDS: APIXABAN 5 MG TABLET 2.5 MG PO (08:39)
[2019-03-30] MEDS: CHOLECALCIFEROL (VITAMIN D3) 1,000 UNIT TABLET 1000 UNIT PO (08:39)
[2019-03-30] MEDS: ERYTHROMYCIN OPHTH 1 GM OINT 1 APPLIC EYE-LEFT (08:39)
[2019-03-30] MEDS: ASCORBIC ACID 500 MG TABLET PO (08:39)
[2019-03-30] MEDS: GABAPENTIN 300 MG CAPSULE PO (08:40)
[2019-03-30] MEDS: LIDOCAINE PATCH 1 EACH ADH..PATCH TOP (08:40)
[2019-03-30] MEDS: lamoTRIgine 100 MG TABLET 300 MG PO (08:40)
[2019-03-30] MEDS: AMMONIUM LACTATE 1 APPLIC TOP (08:41)
[2019-03-30] MEDS: TRAMADOL 50 MG TABLET 100 MG PO (08:43)
[2019-03-30] MEDS: CEFTRIAXONE 1 GM/50 ML FROZ.PIGGY IV (10:09)
[2019-03-30] MEDS: VANCOMYCIN 750 MG/150 ML FROZ.PIGGY 150 MG IV (10:50)
--- NOTE | 2019-03-30 11:03 | CM.DPC ---
Addendum entered by Serina Rothman LPN 03/31/19 08:53: Pt did go as planned to [facility] yesterday, 1645. Have faxed the d/c summary and resume RN orders to [facility] this morning for followup at the [facility]. Addendum entered by Serina Rothman LPN 03/30/19 14:44: Spoke dnow with Jacqueline. Yolanda will be here shortly. Anticipates no problem with acceptance and w/c van will plan to pick pt up at 1600 today. Addendum entered by Serina Rothman LPN 03/30/19 14:25: Hamlin back from Jacqueline. She reports Yolanda is running late due to circumstances at the [facility]. She will be here as soon as she can. DC today is still likely. CLAUDIA Huber is updated. Will place all d/c orders in Red [facility] as pt may go after CM dept hours (shortened today for low census). Addendum entered by Serina Rothman LPN 03/30/19 12:30: Orders and dc summary are faxed to the facility. Pt continues to be eager to return to and is aware that CLAUDIA Guerrero will be here shortly. Pt will need to go via w/c van and she confirms she has her own w/c at the [facility]. P: return to today via facility w/c van. JARAD Daugherty/JARAD is left a message re the pending d/c today if Yolanda oks. Original Note: DCP: continued: Case received, EMR reviewed: READMIT: noted: pt was here 03/07 - 03/09 with a return to [facility] at that time. Case discussed in Team Rounds and Dr. Chapa reports that pt very much wishes to return to [facility] and that she is medically stable for same today. Called [facility] admissions liaison and discussed case. Jacqueline confirms that [facility] RN had been set up to open pt to service at the [facility] in order to follow up on wound care after pt had an incident at [facility] resulting in decision by the clinic to no longer accept this pt at their setting. Jacqueline reports that pt seems to do best in the familiar envionment of the . As pt has been at the hospital since the afternoon of 03/28 she will need to be assessed before returning to and Jacqueline reports she has spoken with RN Yolanda/AD who will be here at 1230 for the assessment. She is aware that PT has not worked with pt during this short admission and that Dr. Chapa would like pt to d/c today if possible. Will check in with pt and be following.
--- NOTE | 2019-03-30 11:03 | PM.DS.1 ---
History of Present Illness Date Patient Seen: 03/30/19 Chief complaint: L Lower Leg Cellulitis Narrative: 8-year-old female with PMH of HTN, DM 2T, CVA, PE on chronic anticoagulation with Eliquis, CKD IV, BL LE venous insufficiency, recurrent UTIs, depression, and chronic pain syndrome presented to ED from [facility] with fever and AMS. Patient is AAOx2 during the time of my interview therefore most of the history was obtained from records. Patient has been residing at [facility] for quite some time, although patient tells me only few days. She has history or recurrent falls with lacerations to her lower extremities. She has been admitted with Acute encephalopathy on 03/08/19 and was found to have LLE laceration that has already been adressed with sutures. She then had another fall episode on 03/24/19 and was seen in ED...at that time LLE laceration was noted (unsure if same or not) and patient got 9 sutures to it and was sent back home. Today patient was transported to ED because she was noted to have fever at the senior care. No other report was available. Patient herself states she fell again 2 days ago and again bumped her LLE. She has been going to wound care clinic for a while but was recently fired from there due to aggressive behavior. She herself denies any fever but has been having chills. She deneis any nausea/vomiting/diarrhea/abd pain. Denies any CP or SOB. Denies LOC/headache/blurry vision. Denies symptoms. In ED, patient's vitals revealed BP 110/37, P 74, RR18, Saturating 95% on RA, temp 101.7F. Lab work revealed WBC of 15.9, hemoglobin 12.7, hematocrit 37.1, platelet count 254. Sodium was 140, potassium 4.1, chloride 101, carbon dioxide 30, BUN 16, creatinine 1.8 (which seems to be her baseline), BUN 16. lactate was normal at 1.8, procalcitonin was normal at 1. UA showed 5-10 WBCs however was a dirty draw. Chest x-ray revealed limited portable chest study given patient's body habitus, however no focal infiltrates or fluid were identified. There was mild cardiomegaly. On exam patient was noted to have bilateral stasis dermatitis with left lower extremity open wound, with mild cirrhosis drainage from it and erythema, swelling, warmth to left lower extremity more than the right. Patient was given 1 L normal saline bolus, Tylenol p.o., and ceftriaxone/vancomycin IV. She was then admitted to general medical floor for treatment of left lower extremity cellulitis. Discharge Providers Date of admission: 03/28/19 12:03 Discharge Date: 03/30/19 Primary care physician: Danielle Rodriguez MD Consults: 03/28/19 15:02 Consult to Wound Care Routine Comment: Consulting Provider: [facility] Discharge provider: Lady Chapa MD Summary Discharge Diagnosis: Acute metabolic encephalopathy present on admission now resolved Chronic lower extremity venous insufficiency Left lower extremity venous stasis ulcer with superficial infection Type 2 diabetes Hypertension History of pulmonary embolus on anticoagulation History of urinary tract infection Depression chronic pain syndrome Morbid obesity Asthma PTSD diabetic neuropathy Chronic kidney disease stage 4 Hospital Course: Patient was admitted to the hospital with altered mental status. It was felt that she likely had an infection involving her left lower extremity. She was treated with IV ceftriaxone and IV vancomycin. The patient has significant improvement in her mental status. She had a dressing change to the left lower extremity. She had no further fevers or confusion. The patient repeatedly requested to be discharged back to [facility]. We were planning to have wound care consult however the patient has been fired from the wound care clinic due to aggressive behavior. The wound care clinic had arrange for home health to see her while she was at [facility]. She will continue with her current dressing changes and be followed as an outpatient by the a visiting nurse. Patient does have some oozing from the wound. She will be sent home with a 7 day course of antibiotics. Overall she has made significant improvement and was deemed appropriate for discharge back to [facility]. Her wound culture grew diptheroids Status at Discharge Cognitive/behavioral status at discharge: oriented Functional status at discharge: uses cane/walker Overall status at discharge: patient is back to baseline Time Spent with Patient Less than 30 minutes Exam Vital Signs (past 8 hours): - 03/30/19 03:50 03/30/19 08:00 03/30/19 08:34 Temperature 98.6 F 97.8 F Pulse Rate 64 69 Respiratory Rate 18 16 Blood Pressure 181/73 H 149/82 H Pulse Oximetry 93 96 96 Oxygen Delivery Method Room Air Oxygen Flow Rate 0 Narrative Exam Narrative: Morbidly obese female in no obvious distress Lungs: Clear to auscultation Cardiac exam: Regular rate and rhythm normal S1-S2 Abdomen: Obese, soft nontender Extremities: There is an open 5 x 4 cm ulcer on the anterior beltran of the left lower extremity. There is no surrounding erythema however there is serosanguineous drainage. Both lower extremities are erythematous intermediate down the calf to the ankles. She has bilateral pedal edema Objective Labs Result Diagrams: 03/29/19 05:20 03/29/19 05:20 Discharge Plan Discharge Plan Patient Disposition: Assisted Living Transfer to: [facility] Transportation: [facility] I certify [facility] care is medically necessary on a continuing basis for any conditions for which he/ she received care during this hospitalization.: Yes The receiving facility has agreed to accept transfer and provide medical treatment.: Yes Discharge Med Rec/Prescriptions Prescriptions: New cephalexin [Keflex] 500 mg capsule 500 mg PO QID 7 Days Qty: 28 RF: 0 Continued lamotrigine [Lamictal] 100 MG tablet 300 mg PO DAILY Qty: 0 RF: 0 Flovent Diskus 100 MCG blister with device 100 mcg INH BIDP PRN (Reason: asthma) Qty: 0 RF: 0 docusate sodium 100 MG capsule 200 mg PO QDAYP PRN (Reason: Constipation) Qty: 0 RF: 0 atorvastatin 40 MG tablet 40 mg PO DAILY Qty: 0 RF: 0 furosemide [Lasix] 40 mg Tablet 40 mg PO DAILY RF: 0 ascorbic acid (vitamin C) [Vitamin C] 500 mg Tablet 500 mg PO DAILY RF: 0 latanoprost 0.005 % Drops 1 drp EYE-RIGHT DAILY RF: 0 erythromycin 5 mg/gram (0.5 %) Ointment 0.5 inch EYE-LEFT DAILY RF: 0 sertraline [Zoloft] 50 mg Tablet 50 mg PO BEDTIME Qty: 30 RF: 0 ammonium lactate 12 % Lotion 1 applic TOPICAL BID Qty: 0 RF: 0 glipizide 10 mg Tablet 10 mg PO BID RF: 0 Eucerin Original Lotion 1 applic TOPICAL BID RF: 0 cholecalciferol (vitamin D3) [Vitamin D3] 1,000 unit Tablet 1,000 unit PO DAILY RF: 0 acetaminophen 325 mg Tablet 650 mg PO Q6H PRN (Reason: Pain (Scale Score 1-3)) RF: 0 trazodone 50 mg Tablet 50 mg PO BEDTIME PRN (Reason: Sleep) RF: 0 guaifenesin [Cough Syrup] 100 mg/5 mL Liquid 10 ml PO Q4H PRN (Reason: Cough) RF: 0 lorazepam [Ativan] 1 mg Tablet 1 mg PO Q4HR PRN (Reason: behaviours) RF: 0 albuterol sulfate [ProAir HFA] 90 mcg/actuation Hfa Aerosol Inhaler 2 puff INHALATION Q4H PRN (Reason: asthma) RF: 0 loratadine [Claritin] 10 mg Tablet 10 mg PO DAILY PRN (Reason: Allergy Symptoms) RF: 0 Lantus Solostar U-100 Insulin 100 unit/mL (3 mL) Insulin Pen 10 unit SUBCUT BID RF: 0 nystatin 100,000 unit/gram Powder 1 applic TOPICAL TID PRN (Reason: Skin Irritation) RF: 0 quetiapine 50 mg Tablet 50 mg PO BID RF: 0 tramadol 50 mg Tablet 100 mg PO BID Qty: 30 RF: 0 calcium carbonate [Tums] 200 mg calcium (500 mg) Tablet,Chewable 1 - 2 tab PO Q4H PRN (Reason: Nausea) RF: 0 multivitamin with minerals Tablet 1 tab PO DAILY RF: 0 Humalog KwikPen Insulin 100 unit/mL Insulin Pen 1 dose subcut TID RF: 0 Eliquis 2.5 mg Tablet 2.5 mg PO BID RF: 0 lidocaine 4 % Adhesive Patch,Medicated 1 patch TOPICAL DAILY RF: 0 gabapentin 300 mg Capsule 300 mg PO BID RF: 0 Follow up/Referrals: Danielle Rodriguez MD [Primary Care Provider] - Discharge Orders: Discharge (Order); Ordered 03/30/19 Ordered By: Lady Chapa Provider Discharge Instructions Diet: Low-sodium and Low-cholesterol Liquid consistency: Normal/Thin Food texture: Regular Activity: aS tolerated Skin/Wound/Dressing Care Dressing: Dressing changes per visiting nurse. Patient has an Allevyn dressing in place which will remain in place until seen by visiting nurse. Other wound treatment: She will continue a 7 day course of antibiotics [facility] Reason for rehabilitation: Recovery r/t decondition Rehab type: Physical therapy, Occupational therapy and Home health Discharge Data Primary Care Provider: Danielle Rodriguez Attending Provider: Halley Chowdhury Admit Date/Time: 03/28/19 12:03
--- NOTE | 2019-03-30 11:09 | P.DS_ITS ---
History of Present Illness Date Patient Seen: 03/30/19 Chief complaint: L Lower Leg Cellulitis Narrative: 8-year-old female with PMH of HTN, DM 2T, CVA, PE on chronic anticoagulation with Eliquis, CKD IV, BL LE venous insufficiency, recurrent UTIs, depression, and chronic pain syndrome presented to ED from [facility] with fever and AMS. Patient is AAOx2 during the time of my interview therefore most of the history was obtained from records. Patient has been residing at [facility] for quite some time, although patient tells me only few days. She has history or recurrent falls with lacerations to her lower extremities. She has been admitted with Acute encephalopathy on 03/08/19 and was found to have LLE laceration that has already been adressed with sutures. She then had another fall episode on 03/24/19 and was seen in ED...at that time LLE laceration was noted (unsure if same or not) and patient got 9 sutures to it and was sent back home. Today patient was transported to ED because she was noted to have fever at the alf. No other report was available. Patient herself states she fell again 2 days ago and again bumped her LLE. She has been going to wound care clinic for a while but was recently fired from there due to aggressive behavior. She herself denies any fever but has been having chills. She deneis any nausea/vomiting/diarrhea/abd pain. Denies any CP or SOB. Denies LOC/headache/blurry vision. Denies symptoms. In ED, patient's vitals revealed BP 110/37, P 74, RR18, Saturating 95% on RA, temp 101.7F. Lab work revealed WBC of 15.9, hemoglobin 12.7, hematocrit 37.1, platelet count 254. Sodium was 140, potassium 4.1, chloride 101, carbon dioxide 30, BUN 16, creatinine 1.8 (which seems to be her baseline), BUN 16. lactate was normal at 1.8, procalcitonin was normal at 1. UA showed 5-10 WBCs however was a dirty draw. Chest x-ray revealed limited portable chest study given patient's body habitus, however no focal infiltrates or fluid were identified. There was mild cardiomegaly. On exam patient was noted to have bilateral stasis dermatitis with left lower extremity open wound, with mild cirrhosis drainage from it and erythema, swelling, warmth to left lower extremity more than the right. Patient was given 1 L normal saline bolus, Tylenol p.o., and ceftriaxone/vancomycin IV. She was then admitted to general medical floor for treatment of left lower extremity cellulitis. Discharge Providers Date of admission: 03/28/19 12:03 Discharge Date: 03/30/19 Primary care physician: Danielle Rodriguez MD Consults: 03/28/19 15:02 Consult to Wound Care Routine Comment: Consulting Provider: Lauren Wound Care Discharge provider: Lady Chapa MD Summary Discharge Diagnosis: Acute metabolic encephalopathy present on admission now resolved Chronic lower extremity venous insufficiency Left lower extremity venous stasis ulcer with superficial infection Type 2 diabetes Hypertension History of pulmonary embolus on anticoagulation History of urinary tract infection Depression chronic pain syndrome Morbid obesity Asthma PTSD diabetic neuropathy Chronic kidney disease stage 4 Hospital Course: Patient was admitted to the hospital with altered mental status. It was felt that she likely had an infection involving her left lower extremity. She was treated with IV ceftriaxone and IV vancomycin. The patient has significant improvement in her mental status. She had a dressing change to the left lower extremity. She had no further fevers or confusion. The patient repeatedly requested to be discharged back to [facility]. We were planning to have wound care consult however the patient has been fired from the wound care clinic due to aggressive behavior. The wound care clinic had arrange for home health to see her while she was at [facility]. She will continue with her current dressing changes and be followed as an outpatient by the a visiting nurse. Patient does have some oozing from the wound. She will be sent home with a 7 day course of antibiotics. Overall she has made significant improvement and was deemed appropriate for discharge back to [facility]. Her wound culture grew diptheroids Status at Discharge Cognitive/behavioral status at discharge: oriented Functional status at discharge: uses cane/walker Overall status at discharge: patient is back to baseline Time Spent with Patient Less than 30 minutes Exam Vital Signs (past 8 hours): - 03/30/19 03:50 03/30/19 08:00 03/30/19 08:34 Temperature 98.6 F 97.8 F Pulse Rate 64 69 Respiratory Rate 18 16 Blood Pressure 181/73 H 149/82 H Pulse Oximetry 93 96 96 Oxygen Delivery Method Room Air Oxygen Flow Rate 0 Narrative Exam Narrative: Morbidly obese female in no obvious distress Lungs: Clear to auscultation Cardiac exam: Regular rate and rhythm normal S1-S2 Abdomen: Obese, soft nontender Extremities: There is an open 5 x 4 cm ulcer on the anterior beltran of the left lower extremity. There is no surrounding erythema however there is serosanguineous drainage. Both lower extremities are erythematous prison down the calf to the ankles. She has bilateral pedal edema Objective Labs Result Diagrams: 03/29/19 05:20 03/29/19 05:20 Discharge Plan Discharge Plan Patient Disposition: Assisted Living Transfer to: [facility] Transportation: [facility] I certify the postop hospital care home care is medically necessary on a continuing basis for any conditions for which he/ she received care during this hospitalization.: Yes The receiving facility has agreed to accept transfer and provide medical treatment.: Yes Discharge Med Rec/Prescriptions Prescriptions: New cephalexin [Keflex] 500 mg capsule 500 mg PO QID 7 Days Qty: 28 RF: 0 Continued lamotrigine [Lamictal] 100 MG tablet 300 mg PO DAILY Qty: 0 RF: 0 Flovent Diskus 100 MCG blister with device 100 mcg INH BIDP PRN (Reason: asthma) Qty: 0 RF: 0 docusate sodium 100 MG capsule 200 mg PO QDAYP PRN (Reason: Constipation) Qty: 0 RF: 0 atorvastatin 40 MG tablet 40 mg PO DAILY Qty: 0 RF: 0 furosemide [Lasix] 40 mg Tablet 40 mg PO DAILY RF: 0 ascorbic acid (vitamin C) [Vitamin C] 500 mg Tablet 500 mg PO DAILY RF: 0 latanoprost 0.005 % Drops 1 drp EYE-RIGHT DAILY RF: 0 erythromycin 5 mg/gram (0.5 %) Ointment 0.5 inch EYE-LEFT DAILY RF: 0 sertraline [Zoloft] 50 mg Tablet 50 mg PO BEDTIME Qty: 30 RF: 0 ammonium lactate 12 % Lotion 1 applic TOPICAL BID Qty: 0 RF: 0 glipizide 10 mg Tablet 10 mg PO BID RF: 0 Eucerin Original Lotion 1 applic TOPICAL BID RF: 0 cholecalciferol (vitamin D3) [Vitamin D3] 1,000 unit Tablet 1,000 unit PO DAILY RF: 0 acetaminophen 325 mg Tablet 650 mg PO Q6H PRN (Reason: Pain (Scale Score 1-3)) RF: 0 trazodone 50 mg Tablet 50 mg PO BEDTIME PRN (Reason: Sleep) RF: 0 guaifenesin [Cough Syrup] 100 mg/5 mL Liquid 10 ml PO Q4H PRN (Reason: Cough) RF: 0 lorazepam [Ativan] 1 mg Tablet 1 mg PO Q4HR PRN (Reason: behaviours) RF: 0 albuterol sulfate [ProAir HFA] 90 mcg/actuation Hfa Aerosol Inhaler 2 puff INHALATION Q4H PRN (Reason: asthma) RF: 0 loratadine [Claritin] 10 mg Tablet 10 mg PO DAILY PRN (Reason: Allergy Symptoms) RF: 0 Lantus Solostar U-100 Insulin 100 unit/mL (3 mL) Insulin Pen 10 unit SUBCUT BID RF: 0 nystatin 100,000 unit/gram Powder 1 applic TOPICAL TID PRN (Reason: Skin Irritation) RF: 0 quetiapine 50 mg Tablet 50 mg PO BID RF: 0 tramadol 50 mg Tablet 100 mg PO BID Qty: 30 RF: 0 calcium carbonate [Tums] 200 mg calcium (500 mg) Tablet,Chewable 1 - 2 tab PO Q4H PRN (Reason: Nausea) RF: 0 multivitamin with minerals Tablet 1 tab PO DAILY RF: 0 Humalog KwikPen Insulin 100 unit/mL Insulin Pen 1 dose subcut TID RF: 0 Eliquis 2.5 mg Tablet 2.5 mg PO BID RF: 0 lidocaine 4 % Adhesive Patch,Medicated 1 patch TOPICAL DAILY RF: 0 gabapentin 300 mg Capsule 300 mg PO BID RF: 0 Follow up/Referrals: Danielle Rodriguez MD [Primary Care Provider] - Discharge Orders: Discharge (Order); Ordered 03/30/19 Ordered By: Lady Chapa Provider Discharge Instructions Diet: Low-sodium and Low-cholesterol Liquid consistency: Normal/Thin Food texture: Regular Activity: aS tolerated Skin/Wound/Dressing Care Dressing: Dressing changes per visiting nurse. Patient has an Allevyn dressing in place which will remain in place until seen by visiting nurse. Other wound treatment: She will continue a 7 day course of antibiotics [facility] Reason for rehabilitation: Recovery r/t decondition Rehab type: Physical therapy, Occupational therapy and Home health Discharge Data Primary Care Provider: Danielle Rodriguez Attending Provider: Halley Chowdhury Admit Date/Time: 03/28/19 12:03
[2019-03-30 12:00] VITALS: BP 135/58; PULSE 58; RESP 16; TEMP 36.2; O2SAT 95
--- NOTE | 2019-03-30 12:02 | PC.NURSE ---
Addendum entered by Serina Rothman LPN 03/30/19 14:48: Original Note: New Allevyn dressing placed to wound on LLE after gentle cleansing with normal saline. Wound bed partly pink, some slough present. No odor noted. Denies pain, acknowledges neuropathy to BLE's.
--- NOTE | 2019-03-30 16:43 | PC.NURSE ---
1645- [facility] transport staff member here to take pt. DC packet given to staff memeber. All belongings with pt including med alert bracelet.
== END 2019-03-30 16:46 | disposition home health service (06) | DRG 603 ==
LOC: ED 11:40 → AC 12:03 → ICU 14:08 → AC 19:38
PROVIDERS: Admitting Provider Internal Medicine; Emergency Provider Emergency Medicine; PCP Internal Medicine; Visit Provider Internal Medicine
DX: L03.116 Cellulitis of left lower limb (principal); N18.4 Chronic kidney disease, stage 4 (severe); Z68.42 Body mass index [BMI] 45.0-49.9, adult; I12.9 Hypertensive chronic kidney disease with stage 1 through stage 4 chronic kidney disease, or unspecified chronic kidney disease; E11.22 Type 2 diabetes mellitus with diabetic chronic kidney disease; E66.01 Morbid (severe) obesity due to excess calories; I87.2 Venous insufficiency (chronic) (peripheral); Z86.711 Personal history of pulmonary embolism; Z79.01 Long term (current) use of anticoagulants; G89.29 Other chronic pain; F32.9 Major depressive disorder, single episode, unspecified; Z91.81 History of falling
CPT/HCPCS: 36415; 36591; 71045; 73110; 80048; 80053; 81003; 81015; 82962; 83605; 84145; 85025; 87040; 87070; 87077; 87205; 87797; 94640; 94760; 96365; 96366; 96367; 99284; 99285; J3370

== ENCOUNTER 2019-04-06 23:20 | Observation (INO) | payer MEDICARE, MEDICAID, SELFPAY ==
[2019-03-28 14:30] VITALS: BMI 44.9
--- NOTE | 2019-04-06 23:23 | ED.DIZZY ---
HPI - Dizziness General Chief Complaint: Dizziness Stated Complaint: Dizziness Time Seen by Provider: 04/06/19 23:22 Source: patient and EMS Mode of arrival: EMS Limitations: no limitations History of Present Illness HPI Narrative: 78F nonsmoker with history of hypertension, stroke and renal failure presents from a local correction facility with a chief complaint of a sudden onset vertigo type dizziness which started about 30 minutes prior to her arrival. The patient was in her normal state of health when she was attempting to use the bathroom and she became significantly dizzy and states she feels as if the room were spinning. She denies feeling lightheaded or developing any head pain. She did fall about week ago and takes Eliquis. She denies any chest pain or shortness of breath. She denies any numbness, tingling or weakness. She denies any trouble with speech or vision. MD complaint: dizziness Onset (ago): minute(s) Timing: sudden onset Description: sense of movement and room spinning History of similar episodes: No History of trauma: Yes Severity: mild Relieving factors: nothing Exacerbating factors: nothing Associated symptoms: denies other symptoms Related Data Home Medications Medication Instructions Recorded Confirmed Flovent Diskus 100 mcg INH BIDP PRN #0 09/08/16 04/07/19 lamotrigine [Lamictal] 300 mg PO DAILY #0 09/08/16 04/07/19 docusate sodium 200 mg PO QDAYP PRN #0 07/10/17 04/07/19 atorvastatin 40 mg PO DAILY #0 01/18/18 04/07/19 ascorbic acid (vitamin C) [Vitamin 500 mg PO DAILY 04/01/18 04/07/19 C] furosemide [Lasix] 40 mg PO DAILY 04/01/18 04/07/19 erythromycin 0.5 inch EYE-LEFT DAILY 08/08/18 04/07/19 latanoprost 1 drp EYE-RIGHT DAILY 08/08/18 04/07/19 Eucerin Original 1 applic TOPICAL BID 08/13/18 04/07/19 ammonium lactate 1 applic TOPICAL BID #0 08/13/18 03/28/19 cholecalciferol (vitamin D3) 1,000 unit PO DAILY 08/13/18 04/07/19 [Vitamin D3] glipizide 10 mg PO BID 08/13/18 04/07/19 Lantus Solostar U-100 Insulin 10 unit SUBCUT BID 03/07/19 04/07/19 acetaminophen 650 mg PO Q6H PRN 03/07/19 04/07/19 albuterol sulfate [ProAir HFA] 2 puff INHALATION Q4H PRN 03/07/19 04/07/19 guaifenesin [Cough Syrup] 10 ml PO Q4H PRN 03/07/19 04/07/19 loratadine [Claritin] 10 mg PO DAILY PRN 03/07/19 04/07/19 lorazepam [Ativan] 1 mg PO Q4HR PRN 03/07/19 04/07/19 trazodone 50 mg PO BEDTIME PRN 03/07/19 04/07/19 nystatin 1 applic TOPICAL TID PRN 03/08/19 03/28/19 quetiapine 50 mg PO TID 03/08/19 04/07/19 Eliquis 2.5 mg PO BID 03/24/19 04/07/19 Humalog KwikPen Insulin 1 dose SUBCUT TID 03/24/19 04/07/19 calcium carbonate [Tums] 1 - 2 tab PO Q4H PRN 03/24/19 04/07/19 multivitamin with minerals 1 tab PO DAILY 03/24/19 03/28/19 gabapentin 300 mg PO BID 03/28/19 04/07/19 lidocaine 1 patch TOPICAL DAILY 03/28/19 04/07/19 Previous Rx's Medication Instructions Recorded sertraline [Zoloft] 50 mg PO BEDTIME #30 tab 08/12/18 tramadol 100 mg PO BID #30 tab 03/09/19 Allergies Allergy/AdvReac Type Severity Reaction Status Date / Time Iodine and Iodide Containing Allergy Intermediate i get Verified 03/24/19 13:55 Produc spots all [IODINE AND IODIDE over my CONTAINING PRODUC] body Penicillins [PENICILLINS] Allergy Intermediate makes my Verified 03/24/19 13:55 bones and joints ache aspirin [ASPIRIN] Allergy Unknown Verified 03/24/19 13:55 meclizine [MECLIZINE] Allergy Unknown Verified 03/24/19 13:55 codeine [CODEINE] AdvReac Unknown gives me Verified 03/24/19 13:55 bloody nightmares potassium [POTASSIUM] AdvReac Unknown Verified 03/24/19 13:55 Review of Systems Constitutional Denies chills, Denies fever(s), Denies lethargy and Denies weakness Eyes Denies change in vision, Denies eye discharge, Denies irritation and Denies loss of vision ENT Ears, Nose, Mouth, and Throat: Denies change in voice, Reports vertigo, Reports dizziness, Denies neck pain and Denies sore throat Cardiovascular Denies chest pain, Denies irregular heart rhythm, Denies lightheadedness, Denies palpitations, Denies dyspnea, Denies dyspnea on exertion and Denies orthopnea Respiratory Denies cough, Denies dyspnea, Denies dyspnea on exertion and Denies wheezing Gastrointestinal Gastrointestinal: Denies abdominal pain, Denies change in bowel habits, Denies diarrhea, Denies nausea and Denies vomiting Genitourinary Denies hematuria, Denies flank pain, Denies urinary incontinence and Denies urinary urgency Musculoskeletal Denies neck pain Integumentary/Breasts Denies pruritus, Denies erythema, Denies rash and Denies wounds Neurologic Denies confusion, Reports vertigo, Reports dizziness, Denies loss of vision and Denies weakness Psychiatric Denies anxiety, Denies confusion, Denies depression, Denies homicidal ideation and Denies suicidal ideation Endocrine Denies palpitations Hematologic/Lymphatic Denies easy bruising Allergic/Immunologic Denies wheezing COUNT INCLUDES THE [facility] Medical History Asthma (Acute) CVA (cerebral vascular accident) (Acute) Cataract (Acute) Chronic anticoagulation (Acute) Chronic pain (Acute) Depression (Acute) Diabetes (Acute) Diabetic neuropathy (Acute) H/O: hysterectomy (Acute) Hypertension (Acute) Lower extremity edema (Acute) Morbid obesity (Acute) PTSD (post-traumatic stress disorder) (Acute) Pulmonary embolism (Acute) Surgical History Hx of appendectomy (Acute) Hx of tonsillectomy (Acute) Hx of total knee arthroplasty (Acute) Family History Mother No known health problems Father Lung cancer Sister Lung cancer Tobacco dependence Social History household members: caregiver Smoking Status: Never smoker alcohol intake: former Family History Mother No known health problems Father Lung cancer Sister Lung cancer Tobacco dependence Social History household members: caregiver Smoking Status: Never smoker alcohol intake: former Exam Narrative Exam Narrative: GENERAL: 78-year-old female, morbidly obese and chronically ill appears in her normal state of health. She is alert and oriented. HEAD: Atraumatic. Normocephalic. No temporal or scalp tenderness. EYES: No nystagmus. Pupils equal round and reactive. Extraocular motions intact. No scleral icterus. No injection or drainage. ENT: Nose without bleeding, purulent drainage or septal hematoma. Throat without erythema, tonsillar hypertrophy or exudate. Uvula midline. Airway patent. NECK: Trachea midline. No JVD or lymphadenopathy. Supple, nontender, no meningeal signs. CARDIOVASCULAR: Regular rate and rhythm without murmurs, gallops, or rubs. RESPIRATORY: Clear to auscultation. Breath sounds equal bilaterally. No wheezes, rales, or rhonchi. GASTROINTESTINAL: Abdomen soft, non-tender, nondistended. No hepato-splenomegaly, or palpable masses. No guarding. EXTREMITIES: No clubbing, cyanosis, or edema. No joint tenderness, effusion, or edema noted. BACK: Nontender without deformity or crepitance. No flank tenderness. NEURO: AOx3. SKIN: No rash or erythema. Initial Vital Signs Initial Vital Signs: Vital Signs Temperature 97.8 F 04/06/19 23:25 Pulse Rate 68 04/06/19 23:25 Respiratory Rate 14 04/06/19 23:25 Blood Pressure 124/60 04/06/19 23:25 Pulse Oximetry 96 04/06/19 23:25 Course Orders Ordered: ED Orders 04/06/19 23:33 CT head/brain wo con Stat 04/06/19 23:55 Basic Metabolic Panel Stat Complete Blood Count AUTO DIFF Stat Troponin I Stat 04/07/19 Procalcitonin Routine 04/07/19 02:32 Consult to Dietitian, Adult Routine 04/07/19 02:33 Consult to Discharge Planning Routine Consult to Physical Therapy Evaluate & Treat 04/07/19 02:35 Urinalysis and Microscopic Stat Urine Culture Stat Urine Drug Screen, Rapid Stat 04/08/19 05:00 Basic Metabolic Panel Routine Acetaminophen (Tylenol) 650 mg PO Q6HR PRN PRN Reason: As Needed for Fever/Mild Pain Albuterol (Ventolin Hfa) 2 puff INH Q4H PRN PRN Reason: asthma Apixaban (Eliquis) 2.5 mg PO BID ROSI Atorvastatin Calcium (Lipitor) 40 mg PO DAILY ROSI Dextrose (D50w) 25 gm IV PRN PRN; Protocol PRN Reason: Hypoglycemia Diphenhydramine HCl (Benadryl) 25 mg PO Q8H PRN PRN Reason: Vertigo Erythromycin (Erythromycin Ophth Oint) 0 applic EYE-LEFT DAILY ROSI Furosemide (Lasix) 40 mg PO DAILY ROSI Gabapentin (Neurontin) 300 mg PO BID ROSI Sodium Chloride (Normal Saline 0.9%) 1,000 mls @ 75 mls/hr IV CONT ROSI Last Admin: 04/07/19 03:39 Dose: 75 mls/hr Insulin Aspart (Novolog Flexpen) 0 unit SUBCUT ACHS ROSI; Protocol Insulin Glargine (Lantus Solostar (Pen)) 10 unit SUBCUT BID COUNT INCLUDES THE [facility] Lamotrigine (Lamictal) 300 mg PO DAILY COUNT INCLUDES THE [facility] Latanoprost (Xalatan) 1 drops EYE-RIGHT DAILY ROSI Lidocaine (Lidoderm) 1 each TOP DAILY ROSI Lidocaine (Lidoderm (Remove Patch)) 1 each TOP BEDTIME COUNT INCLUDES THE [facility] Non-Formulary Medication (Fluticasone Propionate [Flovent Diskus]) 100 mcg INH BIDP PRN PRN Reason: asthma Ondansetron HCl (Zofran) 4 mg IV Q8HR PRN PRN Reason: Nausea And Vomiting Quetiapine Fumarate (Seroquel) 50 mg PO TID ROSI Sertraline HCl (Zoloft) 50 mg PO BEDTIME ROSI Tramadol HCl (Ultram) 100 mg PO QID PRN PRN Reason: Pain, Moderate (4-6) Discontinued Medications Diphenhydramine HCl (Benadryl) 25 mg PO NOW ONE Stop: 04/07/19 00:14 Last Admin: 04/07/19 00:16 Dose: 25 mg Sodium Chloride (Normal Saline 0.9%) 1,000 mls @ 150 mls/hr IV CONT ROSI Stop: 04/07/19 02:28 Last Infusion: 04/07/19 02:31 Dose: 0 mls/hr Admin: 04/07/19 00:16 Dose: 150 mls/hr Sodium Chloride (Normal Saline 0.9%) 500 mls @ 1,000 mls/hr IV BOLUS ONE Stop: 04/07/19 00:15 Last Admin: 04/07/19 02:32 Dose: Not Given Meclizine HCl (Antivert) 25 mg PO NOW ONE Stop: 04/06/19 23:33 Last Admin: 04/07/19 00:14 Dose: Not Given Vital Signs - 8 hr 04/06/19 23:25 04/07/19 00:35 04/07/19 01:02 Temperature 97.8 F Pulse Rate 68 52 L 52 L Pulse Rate [Orthostatic Lying] Pulse Rate [Orthostatic Sitting] Pulse Rate [Orthostatic Standing] Respiratory Rate 14 14 13 Blood Pressure 124/60 Blood Pressure [Orthostatic Lying] Blood Pressure [Orthostatic Sitting] Blood Pressure [Orthostatic Standing] Blood Pressure [Right Arm] 121/58 L 118/49 L Pulse Oximetry 96 98 96 04/07/19 01:32 04/07/19 01:35 04/07/19 03:30 Temperature 96.7 F L Pulse Rate 65 94 H Pulse Rate [Orthostatic Lying] 52 L Pulse Rate [Orthostatic Sitting] 62 Pulse Rate [Orthostatic Standing] 65 Respiratory Rate 16 18 Blood Pressure 159/75 H Blood Pressure [Orthostatic Lying] 117/51 L Blood Pressure [Orthostatic Sitting] 129/59 L Blood Pressure [Orthostatic Standing] 117/57 L Blood Pressure [Right Arm] Pulse Oximetry 95 96 MDM - Dizziness Lab Data Result diagrams: 04/06/19 23:55 04/06/19 23:55 Lab Results 04/06/19 04/06/19 04/07/19 Range/Units 23:55 23:55 02:35 WBC 6.7 (4.5-11.0) X10^3/uL RBC 3.94 L (4.0-5.2) X10^6/uL Hgb 12.1 (12.0-16.0) g/dL Hct 35.4 L (36-46) % MCV 89.8 (80-100) fL MCH 30.8 (26-34) PG MCHC 34.3 (30-36) % RDW 14.8 (11.6-14.8) % Plt Count 307 (150-400) X10^3/uL Neut % (Auto) 63.0 (50-75) % Lymph % (Auto) 25.2 (25-40) % Andrew % (Auto) 6.9 (3-14) % Eos % (Auto) 3.9 (2-4) % Baso % (Auto) 1.0 (0-2) % Neut # (Auto) 4200 (4879-1747) /uL Lymph # (Auto) 1700 (8574-2203) /uL Andrew # (Auto) 500 (0-900) /uL Eos # (Auto) 300 (0-450) /uL Baso # (Auto) 100 (0-100) /uL Sodium 141 (137-145) mmol/L Potassium 4.0 (3.4-5.1) mmol/L Chloride 102 (98-107) mmol/L Carbon Dioxide 33 H (22-32) mmol/L BUN 17 (7-17) mg/dL Creatinine 1.80 H (0.52-1.04) mg/dL Estimated GFR 27.3 L (>60) mL/min BUN/Creatinine Ratio 9.4 (6-22) Glucose 238 H (80-110) mg/dL Calcium 10.0 (8.4-10.2) mg/dL Troponin I < 0.012 (0.01-0.034) ng/mL Urine Color Urine Appearance Urine pH (4.5-8.0) Ur Specific [place] (1.000-1.035) Urine Protein (Negative) Urine Glucose (UA) (Negative) g/dL Urine Ketones (NEGATIVE) Urine Occult Blood (Negative) Urine Nitrate (Negative) Urine Bilirubin (NEGATIVE) Urine Urobilinogen (0.2) E.U./dL Ur Leukocyte Esterase (NEGATIVE) Urine RBC (0-5/HPF) Urine WBC (0-5/HPF) Ur Squamous Epith Cells (0-5/HPF) Urine Bacteria (None) Urine Yeast (None) Ur Culture Indicated? Urine Opiates Screen Negative (Negative) Ur Oxycodone Screen Negative (Negative) Urine Methadone Screen Negative (Negative) Ur Barbiturates Screen Negative (Negative) U Tricyclic Antidepress Positive H (Negative) Ur Phencyclidine Scrn Negative (Negative) Ur Amphetamines Screen Negative (Negative) U Methamphetamines Scrn Negative (Negative) Ur MDMA Scrn (Ecstasy) Negative (Negative) U Benzodiazepines Scrn Negative (Negative) Urine Cocaine Screen Negative (Negative) U Marijuana (THC) Screen Negative (Negative) 04/07/19 Range/Units 02:35 WBC (4.5-11.0) X10^3/uL RBC (4.0-5.2) X10^6/uL Hgb (12.0-16.0) g/dL Hct (36-46) % MCV (80-100) fL MCH (26-34) PG MCHC (30-36) % RDW (11.6-14.8) % Plt Count (150-400) X10^3/uL Neut % (Auto) (50-75) % Lymph % (Auto) (25-40) % Andrew % (Auto) (3-14) % Eos % (Auto) (2-4) % Baso % (Auto) (0-2) % Neut # (Auto) (9888-2799) /uL Lymph # (Auto) (6092-0473) /uL Andrew # (Auto) (0-900) /uL Eos # (Auto) (0-450) /uL Baso # (Auto) (0-100) /uL Sodium (137-145) mmol/L Potassium (3.4-5.1) mmol/L Chloride (98-107) mmol/L Carbon Dioxide (22-32) mmol/L BUN (7-17) mg/dL Creatinine (0.52-1.04) mg/dL Estimated GFR (>60) mL/min BUN/Creatinine Ratio (6-22) Glucose (80-110) mg/dL Calcium (8.4-10.2) mg/dL Troponin I (0.01-0.034) ng/mL Urine Color Yellow Urine Appearance Cloudy Urine pH 5.5 (4.5-8.0) Ur Specific [place] 1.025 (1.000-1.035) Urine Protein Trace H (Negative) Urine Glucose (UA) Negative (Negative) g/dL Urine Ketones Negative (NEGATIVE) Urine Occult Blood 2+ H (Negative) Urine Nitrate Negative (Negative) Urine Bilirubin Negative (NEGATIVE) Urine Urobilinogen 0.2 (0.2) E.U./dL Ur Leukocyte Esterase 1+ H (NEGATIVE) Urine RBC 1-5/hpf (0-5/HPF) Urine WBC 30-100/hpf H (0-5/HPF) Ur Squamous Epith Cells 0-1 /hpf (0-5/HPF) Urine Bacteria Occasional (0-1) (None) Urine Yeast 0-1/hpf (None) Ur Culture Indicated? Specimen cultured Urine Opiates Screen (Negative) Ur Oxycodone Screen (Negative) Urine Methadone Screen (Negative) Ur Barbiturates Screen (Negative) U Tricyclic Antidepress (Negative) Ur Phencyclidine Scrn (Negative) Ur Amphetamines Screen (Negative) U Methamphetamines Scrn (Negative) Ur MDMA Scrn (Ecstasy) (Negative) U Benzodiazepines Scrn (Negative) Urine Cocaine Screen (Negative) U Marijuana (THC) Screen (Negative) Point of Care Testing Glucose POC 256 ECG Data Attestation: I personally reviewed and interpreted this ECG as follows: Prior ECG tracings: available for review Interpretation: Sinus rhythm, rate 67 with right bundle branch block. P are 2 4. QRS 126. QTC 439. No signs of ST elevation or depression MDM Narrative Medical decision making narrative: 78F with on eliquis has fallen once, she is dizzy, did not show abnormal findings on CT, labs, or orthostatics. She was unable to ambulate due to dizziness without two people helping. She has little help at home and is a significant fall risk, particularly bothersome given her Eliquis. She has no focal findings on exam to suggest stroke and recently had some URI symptoms raising the suspicion of labrynthitis as the etiology of her symptoms Discharge Plan Departure Patient Disposition: Admitted as Observation Clinical Impression: Vertigo, Fall Discharge Date/Time: 04/07/19 03:05 Interventions: ED Discharge Assessment Last Done: 04/07/19 03:15 Referrals: Danielle Rodriguez MD [Primary Care Provider] - Admit Date/Time: 04/07/19 01:54 Admit Provider: Dayton Ocampo
[2019-04-06 23:25] VITALS: BP 124/60; PULSE 68; RESP 14; TEMP 36.6; O2SAT 96
--- NOTE | 2019-04-06 23:33 | DI.CT.S_ITS ---
PROCEDURE: CT HEAD/BRAIN WO CON INDICATIONS: dizziness with recent falls TECHNIQUE: Noncontrast 4.5 mm thick angled axial sections acquired from the foramen magnum to the vertex, with coronal and sagittal reformats. For radiation dose reduction, the following was used: automated exposure control, adjustment of mA and/or kV according to patient size. COMPARISON: [facility], CT, HEAD WITHOUT CONTRAST, 02/14/2016, 15:10. [facility], MR, STROKE PROTOCOL, 10/14/2014, 9:26. [facility], CT, CT HEAD/BRAIN WO CON, 03/07/2019, 20:05. [facility], CT, CT HEAD/BRAIN WO CON, 03/04/2019, 0:48. [facility], CT, CT HEAD/BRAIN WO CON, 03/24/2019, 14:23. FINDINGS: Image quality: Excellent. CSF spaces: Basal cisterns are patent. No extra-axial fluid collections. The ventricles are symmetric in size and shape. Brain: No intracranial bleeds or masses. There is cerebral volume loss for age, with resultant ventricular and sulcal prominence. There are periventricular and deep white matter chronic small vessel ischemic changes. There is intracranial internal carotid artery atherosclerosis. Skull and face: Calvarium and visualized facial bones appear intact, without suspicious lesions. There is an elliptical density posterior to the left globe, unchanged. Sinuses: Visualized sinuses and mastoids are clear. IMPRESSION: 1. No acute intracranial abnormalities. 2. Cerebral volume loss and chronic microvascular ischemic changes. 3. An elliptical density posterior to the left globe appears unchanged. Differential diagnoses include retinal detachment and mass. Please correct clinically. No significant discrepancy with the military technician radiology preliminary report. Dictated by: Tyson Gupta M.D. on 04/07/2019 at 7:35 Approved by: Tyson Gupta M.D. on 04/07/2019 at 7:39
--- NOTE | 2019-04-06 23:37 | ED_ITS ---
HPI - Dizziness General Chief Complaint: Dizziness Stated Complaint: Dizziness Time Seen by Provider: 04/06/19 23:22 Source: patient and EMS Mode of arrival: EMS Limitations: no limitations History of Present Illness HPI Narrative: 78F nonsmoker with history of hypertension, stroke and renal failure presents from a local detention facility with a chief complaint of a sudden onset vertigo type dizziness which started about 30 minutes prior to her arrival. The patient was in her normal state of health when she was attempting to use the bathroom and she became significantly dizzy and states she feels as if the room were spinning. She denies feeling lightheaded or developing any head pain. She did fall about week ago and takes Eliquis. She denies any chest pain or shortness of breath. She denies any numbness, tingling or weakness. She denies any trouble with speech or vision. MD complaint: dizziness Onset (ago): minute(s) Timing: sudden onset Description: sense of movement and room spinning History of similar episodes: No History of trauma: Yes Severity: mild Relieving factors: nothing Exacerbating factors: nothing Associated symptoms: denies other symptoms Related Data Home Medications Medication Instructions Recorded Confirmed Flovent Diskus 100 mcg INH BIDP PRN #0 09/08/16 04/07/19 lamotrigine [Lamictal] 300 mg PO DAILY #0 09/08/16 04/07/19 docusate sodium 200 mg PO QDAYP PRN #0 07/10/17 04/07/19 atorvastatin 40 mg PO DAILY #0 01/18/18 04/07/19 ascorbic acid (vitamin C) [Vitamin 500 mg PO DAILY 04/01/18 04/07/19 C] furosemide [Lasix] 40 mg PO DAILY 04/01/18 04/07/19 erythromycin 0.5 inch EYE-LEFT DAILY 08/08/18 04/07/19 latanoprost 1 drp EYE-RIGHT DAILY 08/08/18 04/07/19 Eucerin Original 1 applic TOPICAL BID 08/13/18 04/07/19 ammonium lactate 1 applic TOPICAL BID #0 08/13/18 03/28/19 cholecalciferol (vitamin D3) 1,000 unit PO DAILY 08/13/18 04/07/19 [Vitamin D3] glipizide 10 mg PO BID 08/13/18 04/07/19 Lantus Solostar U-100 Insulin 10 unit SUBCUT BID 03/07/19 04/07/19 acetaminophen 650 mg PO Q6H PRN 03/07/19 04/07/19 albuterol sulfate [ProAir HFA] 2 puff INHALATION Q4H PRN 03/07/19 04/07/19 guaifenesin [Cough Syrup] 10 ml PO Q4H PRN 03/07/19 04/07/19 loratadine [Claritin] 10 mg PO DAILY PRN 03/07/19 04/07/19 lorazepam [Ativan] 1 mg PO Q4HR PRN 03/07/19 04/07/19 trazodone 50 mg PO BEDTIME PRN 03/07/19 04/07/19 nystatin 1 applic TOPICAL TID PRN 03/08/19 03/28/19 quetiapine 50 mg PO TID 03/08/19 04/07/19 Eliquis 2.5 mg PO BID 03/24/19 04/07/19 Humalog KwikPen Insulin 1 dose SUBCUT TID 03/24/19 04/07/19 calcium carbonate [Tums] 1 - 2 tab PO Q4H PRN 03/24/19 04/07/19 multivitamin with minerals 1 tab PO DAILY 03/24/19 03/28/19 gabapentin 300 mg PO BID 03/28/19 04/07/19 lidocaine 1 patch TOPICAL DAILY 03/28/19 04/07/19 Previous Rx's Medication Instructions Recorded sertraline [Zoloft] 50 mg PO BEDTIME #30 tab 08/12/18 tramadol 100 mg PO BID #30 tab 03/09/19 Allergies Allergy/AdvReac Type Severity Reaction Status Date / Time Iodine and Iodide Containing Allergy Intermediate i get Verified 03/24/19 13:55 Produc spots all [IODINE AND IODIDE over my CONTAINING PRODUC] body Penicillins [PENICILLINS] Allergy Intermediate makes my Verified 03/24/19 13:55 bones and joints ache aspirin [ASPIRIN] Allergy Unknown Verified 03/24/19 13:55 meclizine [MECLIZINE] Allergy Unknown Verified 03/24/19 13:55 codeine [CODEINE] AdvReac Unknown gives me Verified 03/24/19 13:55 bloody nightmares potassium [POTASSIUM] AdvReac Unknown Verified 03/24/19 13:55 Review of Systems Constitutional Denies chills, Denies fever(s), Denies lethargy and Denies weakness Eyes Denies change in vision, Denies eye discharge, Denies irritation and Denies loss of vision ENT Ears, Nose, Mouth, and Throat: Denies change in voice, Reports vertigo, Reports dizziness, Denies neck pain and Denies sore throat Cardiovascular Denies chest pain, Denies irregular heart rhythm, Denies lightheadedness, Denies palpitations, Denies dyspnea, Denies dyspnea on exertion and Denies orthopnea Respiratory Denies cough, Denies dyspnea, Denies dyspnea on exertion and Denies wheezing Gastrointestinal Gastrointestinal: Denies abdominal pain, Denies change in bowel habits, Denies diarrhea, Denies nausea and Denies vomiting Genitourinary Denies hematuria, Denies flank pain, Denies urinary incontinence and Denies urinary urgency Musculoskeletal Denies neck pain Integumentary/Breasts Denies pruritus, Denies erythema, Denies rash and Denies wounds Neurologic Denies confusion, Reports vertigo, Reports dizziness, Denies loss of vision and Denies weakness Psychiatric Denies anxiety, Denies confusion, Denies depression, Denies homicidal ideation and Denies suicidal ideation Endocrine Denies palpitations Hematologic/Lymphatic Denies easy bruising Allergic/Immunologic Denies wheezing [facility] Medical History Asthma (Acute) CVA (cerebral vascular accident) (Acute) Cataract (Acute) Chronic anticoagulation (Acute) Chronic pain (Acute) Depression (Acute) Diabetes (Acute) Diabetic neuropathy (Acute) H/O: hysterectomy (Acute) Hypertension (Acute) Lower extremity edema (Acute) Morbid obesity (Acute) PTSD (post-traumatic stress disorder) (Acute) Pulmonary embolism (Acute) Surgical History Hx of appendectomy (Acute) Hx of tonsillectomy (Acute) Hx of total knee arthroplasty (Acute) Family History Mother No known health problems Father Lung cancer Sister Lung cancer Tobacco dependence Social History household members: caregiver Smoking Status: Never smoker alcohol intake: former Family History Mother No known health problems Father Lung cancer Sister Lung cancer Tobacco dependence Social History household members: caregiver Smoking Status: Never smoker alcohol intake: former Exam Narrative Exam Narrative: GENERAL: 78-year-old female, morbidly obese and chronically ill appears in her normal state of health. She is alert and oriented. HEAD: Atraumatic. Normocephalic. No temporal or scalp tenderness. EYES: No nystagmus. Pupils equal round and reactive. Extraocular motions intact. No scleral icterus. No injection or drainage. ENT: Nose without bleeding, purulent drainage or septal hematoma. Throat without erythema, tonsillar hypertrophy or exudate. Uvula midline. Airway patent. NECK: Trachea midline. No JVD or lymphadenopathy. Supple, nontender, no meningeal signs. CARDIOVASCULAR: Regular rate and rhythm without murmurs, gallops, or rubs. RESPIRATORY: Clear to auscultation. Breath sounds equal bilaterally. No wheezes, rales, or rhonchi. GASTROINTESTINAL: Abdomen soft, non-tender, nondistended. No hepato-splenomegaly , or palpable masses. No guarding. EXTREMITIES: No clubbing, cyanosis, or edema. No joint tenderness, effusion, or edema noted. BACK: Nontender without deformity or crepitance. No flank tenderness. NEURO: AOx3. SKIN: No rash or erythema. Initial Vital Signs Initial Vital Signs: Vital Signs Temperature 97.8 F 04/06/19 23:25 Pulse Rate 68 04/06/19 23:25 Respiratory Rate 14 04/06/19 23:25 Blood Pressure 124/60 04/06/19 23:25 Pulse Oximetry 96 04/06/19 23:25 Course Orders Ordered: ED Orders 04/06/19 23:33 CT head/brain wo con Stat 04/06/19 23:55 Basic Metabolic Panel Stat Complete Blood Count AUTO DIFF Stat Troponin I Stat 04/07/19 Procalcitonin Routine 04/07/19 02:32 Consult to Dietitian, Adult Routine 04/07/19 02:33 Consult to Discharge Planning Routine Consult to Physical Therapy Evaluate & Treat 04/07/19 02:35 Urinalysis and Microscopic Stat Urine Culture Stat Urine Drug Screen, Rapid Stat 04/08/19 05:00 Basic Metabolic Panel Routine Acetaminophen (Tylenol) 650 mg PO Q6HR PRN PRN Reason: As Needed for Fever/Mild Pain Albuterol (Ventolin Hfa) 2 puff INH Q4H PRN PRN Reason: asthma Apixaban (Eliquis) 2.5 mg PO BID ROSI Atorvastatin Calcium (Lipitor) 40 mg PO DAILY ROSI Dextrose (D50w) 25 gm IV PRN PRN; Protocol PRN Reason: Hypoglycemia Diphenhydramine HCl (Benadryl) 25 mg PO Q8H PRN PRN Reason: Vertigo Erythromycin (Erythromycin Ophth Oint) 0 applic EYE-LEFT DAILY ROSI Furosemide (Lasix) 40 mg PO DAILY [facility]I Gabapentin (Neurontin) 300 mg PO BID ROSI Sodium Chloride (Normal Saline 0.9%) 1,000 mls @ 75 mls/hr IV CONT ROSI Last Admin: 04/07/19 03:39 Dose: 75 mls/hr Insulin Aspart (Novolog Flexpen) 0 unit SUBCUT ACHS ROSI; Protocol Insulin Glargine (Lantus Solostar (Pen)) 10 unit SUBCUT BID [facility] Lamotrigine (Lamictal) 300 mg PO DAILY [facility] Latanoprost (Xalatan) 1 drops EYE-RIGHT DAILY [facility] Lidocaine (Lidoderm) 1 each TOP DAILY [facility]I Lidocaine (Lidoderm (Remove Patch)) 1 each TOP BEDTIME [facility] Non-Formulary Medication (Fluticasone Propionate [Flovent Diskus]) 100 mcg INH BIDP PRN PRN Reason: asthma Ondansetron HCl (Zofran) 4 mg IV Q8HR PRN PRN Reason: Nausea And Vomiting Quetiapine Fumarate (Seroquel) 50 mg PO TID ROSI Sertraline HCl (Zoloft) 50 mg PO BEDTIME [facility]I Tramadol HCl (Ultram) 100 mg PO QID PRN PRN Reason: Pain, Moderate (4-6) Discontinued Medications Diphenhydramine HCl (Benadryl) 25 mg PO NOW ONE Stop: 04/07/19 00:14 Last Admin: 04/07/19 00:16 Dose: 25 mg Sodium Chloride (Normal Saline 0.9%) 1,000 mls @ 150 mls/hr IV CONT ROSI Stop: 04/07/19 02:28 Last Infusion: 04/07/19 02:31 Dose: 0 mls/hr Admin: 04/07/19 00:16 Dose: 150 mls/hr Sodium Chloride (Normal Saline 0.9%) 500 mls @ 1,000 mls/hr IV BOLUS ONE Stop: 04/07/19 00:15 Last Admin: 04/07/19 02:32 Dose: Not Given Meclizine HCl (Antivert) 25 mg PO NOW ONE Stop: 04/06/19 23:33 Last Admin: 04/07/19 00:14 Dose: Not Given Vital Signs - 8 hr 04/06/19 23:25 04/07/19 00:35 04/07/19 01:02 Temperature 97.8 F Pulse Rate 68 52 L 52 L Pulse Rate [Orthostatic Lying] Pulse Rate [Orthostatic Sitting] Pulse Rate [Orthostatic Standing] Respiratory Rate 14 14 13 Blood Pressure 124/60 Blood Pressure [Orthostatic Lying] Blood Pressure [Orthostatic Sitting] Blood Pressure [Orthostatic Standing] Blood Pressure [Right Arm] 121/58 L 118/49 L Pulse Oximetry 96 98 96 04/07/19 01:32 04/07/19 01:35 04/07/19 03:30 Temperature 96.7 F L Pulse Rate 65 94 H Pulse Rate [Orthostatic Lying] 52 L Pulse Rate [Orthostatic Sitting] 62 Pulse Rate [Orthostatic Standing] 65 Respiratory Rate 16 18 Blood Pressure 159/75 H Blood Pressure [Orthostatic Lying] 117/51 L Blood Pressure [Orthostatic Sitting] 129/59 L Blood Pressure [Orthostatic Standing] 117/57 L Blood Pressure [Right Arm] Pulse Oximetry 95 96 MDM - Dizziness Lab Data Result diagrams: 04/06/19 23:55 04/06/19 23:55 Lab Results 04/06/19 04/06/19 04/07/19 Range/Units 23:55 23:55 02:35 WBC 6.7 (4.5-11.0) X10^3/uL RBC 3.94 L (4.0-5.2) X10^6/uL Hgb 12.1 (12.0-16.0) g/dL Hct 35.4 L (36-46) % MCV 89.8 (80-100) fL MCH 30.8 (26-34) PG MCHC 34.3 (30-36) % RDW 14.8 (11.6-14.8) % Plt Count 307 (150-400) X10^3/uL Neut % (Auto) 63.0 (50-75) % Lymph % (Auto) 25.2 (25-40) % [place] % (Auto) 6.9 (3-14) % Eos % (Auto) 3.9 (2-4) % Baso % (Auto) 1.0 (0-2) % Neut # (Auto) 4200 (4337-7998) /uL Lymph # (Auto) 1700 (3669-9014) /uL [place] # (Auto) 500 (0-900) /uL Eos # (Auto) 300 (0-450) /uL Baso # (Auto) 100 (0-100) /uL Sodium 141 (137-145) mmol/L Potassium 4.0 (3.4-5.1) mmol/L Chloride 102 (98-107) mmol/L Carbon Dioxide 33 H (22-32) mmol/L BUN 17 (7-17) mg/dL Creatinine 1.80 H (0.52-1.04) mg/dL Estimated GFR 27.3 L (>60) mL/min BUN/Creatinine Ratio 9.4 (6-22) Glucose 238 H (80-110) mg/dL Calcium 10.0 (8.4-10.2) mg/dL Troponin I < 0.012 (0.01-0.034) ng/mL Urine Color Urine Appearance Urine pH (4.5-8.0) Ur Specific [place] (1.000-1.035) Urine Protein (Negative) Urine Glucose (UA) (Negative) g/dL Urine Ketones (NEGATIVE) Urine Occult Blood (Negative) Urine Nitrate (Negative) Urine Bilirubin (NEGATIVE) Urine Urobilinogen (0.2) E.U./dL Ur Leukocyte Esterase (NEGATIVE) Urine RBC (0-5/HPF) Urine WBC (0-5/HPF) Ur Squamous Epith Cells (0-5/HPF) Urine Bacteria (None) Urine Yeast (None) Ur Culture Indicated? Urine Opiates Screen Negative (Negative) Ur Oxycodone Screen Negative (Negative) Urine Methadone Screen Negative (Negative) Ur Barbiturates Screen Negative (Negative) U Tricyclic Antidepress Positive H (Negative) Ur Phencyclidine Scrn Negative (Negative) Ur Amphetamines Screen Negative (Negative) U Methamphetamines Scrn Negative (Negative) Ur MDMA Scrn (Ecstasy) Negative (Negative) U Benzodiazepines Scrn Negative (Negative) Urine Cocaine Screen Negative (Negative) U Marijuana (THC) Screen Negative (Negative) 04/07/19 Range/Units 02:35 WBC (4.5-11.0) X10^3/uL RBC (4.0-5.2) X10^6/uL Hgb (12.0-16.0) g/dL Hct (36-46) % MCV (80-100) fL MCH (26-34) PG MCHC (30-36) % RDW (11.6-14.8) % Plt Count (150-400) X10^3/uL Neut % (Auto) (50-75) % Lymph % (Auto) (25-40) % [place] % (Auto) (3-14) % Eos % (Auto) (2-4) % Baso % (Auto) (0-2) % Neut # (Auto) (1054-4537) /uL Lymph # (Auto) (8336-6108) /uL [place] # (Auto) (0-900) /uL Eos # (Auto) (0-450) /uL Baso # (Auto) (0-100) /uL Sodium (137-145) mmol/L Potassium (3.4-5.1) mmol/L Chloride (98-107) mmol/L Carbon Dioxide (22-32) mmol/L BUN (7-17) mg/dL Creatinine (0.52-1.04) mg/dL Estimated GFR (>60) mL/min BUN/Creatinine Ratio (6-22) Glucose (80-110) mg/dL Calcium (8.4-10.2) mg/dL Troponin I (0.01-0.034) ng/mL Urine Color Yellow Urine Appearance Cloudy Urine pH 5.5 (4.5-8.0) Ur Specific [place] 1.025 (1.000-1.035) Urine Protein Trace H (Negative) Urine Glucose (UA) Negative (Negative) g/dL Urine Ketones Negative (NEGATIVE) Urine Occult Blood 2+ H (Negative) Urine Nitrate Negative (Negative) Urine Bilirubin Negative (NEGATIVE) Urine Urobilinogen 0.2 (0.2) E.U./dL Ur Leukocyte Esterase 1+ H (NEGATIVE) Urine RBC 1-5/hpf (0-5/HPF) Urine WBC 30-100/hpf H (0-5/HPF) Ur Squamous Epith Cells 0-1 /hpf (0-5/HPF) Urine Bacteria Occasional (0-1) (None) Urine Yeast 0-1/hpf (None) Ur Culture Indicated? Specimen cultured Urine Opiates Screen (Negative) Ur Oxycodone Screen (Negative) Urine Methadone Screen (Negative) Ur Barbiturates Screen (Negative) U Tricyclic Antidepress (Negative) Ur Phencyclidine Scrn (Negative) Ur Amphetamines Screen (Negative) U Methamphetamines Scrn (Negative) Ur MDMA Scrn (Ecstasy) (Negative) U Benzodiazepines Scrn (Negative) Urine Cocaine Screen (Negative) U Marijuana (THC) Screen (Negative) Point of Care Testing Glucose POC 256 ECG Data Attestation: I personally reviewed and interpreted this ECG as follows: Prior ECG tracings: available for review Interpretation: Sinus rhythm, rate 67 with right bundle branch block. P are 2 4. QRS 126. QTC 439. No signs of ST elevation or depression MDM Narrative Medical decision making narrative: 78F with on eliquis has fallen once, she is dizzy, did not show abnormal findings on CT, labs, or orthostatics. She was unable to ambulate due to dizziness without two people helping. She has little help at home and is a significant fall risk, particularly bothersome given her Eliquis. She has no focal findings on exam to suggest stroke and recently had some URI symptoms raising the suspicion of labrynthitis as the etiology of her symptoms Discharge Plan Departure Patient Disposition: Admitted as Observation Clinical Impression: Vertigo, Fall Discharge Date/Time: 04/07/19 03:05 Interventions: ED Discharge Assessment Last Done: 04/07/19 03:15 Referrals: Danielle Rodriguez MD [Primary Care Provider] - Admit Date/Time: 04/07/19 01:54 Admit Provider: Dayton Ocampo
[2019-04-07] VITALS (9 sets, daily range): BP systolic 117–159; BP diastolic 49–75; PULSE 48–94; RESP 13–22; TEMP 35.7–36.1; O2SAT 92–98; BMI 49.0
--- NOTE | 2019-04-07 00:12 | PC.NURSE ---
Provider aware of meclazine allergy, verbal order change to 25mg po benedryl.
[2019-04-07] MEDS: SODIUM CHLORIDE 0.9% 1,000 ML 150 ML IV (00:16)
[2019-04-07] MEDS: diphenhydrAMINE 25 MG TABLET PO (00:16)
[2019-04-07 00:18] LABS: BUN Creatinine Ratio 9.4 (6-22); Blood Urea Nitrogen 17 mg/dL (7-17); Carbon Dioxide 33 mmol/L (22-32); Chloride 102 mmol/L (98-107); Estimated Glomerular Filt Rate 27.3 mL/min (>60); Glucose 238 mg/dL (80-110); HEMOLYSIS < 15 (0-50); Sodium 141 mmol/L (137-145)
[2019-04-07 00:29] LABS: Troponin I < 0.012 ng/mL (0.01-0.034)
[2019-04-07 00:45] LABS: Add Manual Diff / Slide Review NO; Basophils Absolute Auto 100 /uL (0-100); Eosinophils Absolute Auto 300 /uL (0-450); Eosinophils Percent Auto 3.9 % (2-4); Hematocrit 35.4 % (36-46); Hemoglobin 12.1 g/dL (12.0-16.0); Lymphocytes Absolute Auto 1700 /uL (1100-4500); Lymphocytes Percent Auto 25.2 % (25-40); Mean Corpuscular HGB Conc 34.3 % (30-36); Mean Corpuscular Hemoglobin 30.8 PG (26-34); Mean Corpuscular Volume 89.8 fL (80-100); Monocytes Absolute Auto 500 /uL (0-900); Monocytes Percent Auto 6.9 % (3-14); Neutrophils Absolute Auto 4200 /uL (1500-7000); Platelet Count 307 X10^3/uL (150-400); Red Blood Cell Count 3.94 X10^6/uL (4.0-5.2); Red Cell Distribution Width 14.8 % (11.6-14.8); White Blood Cell Count 6.7 X10^3/uL (4.5-11.0)
--- NOTE | 2019-04-07 01:36 | PC.NURSE ---
Pt complained of dizziness upon standing and attempting to ambulate
[2019-04-07 03:05] LABS: Appearance Urine UA CLOUDY; Bilirubin Urine UA NEGATIVE (NEGATIVE); Color Urine UA YELLOW; Glucose Urine UA NEGATIVE (Negative); Ketones Urine UA NEGATIVE (NEGATIVE); Leukocyte Esterase Urine UA 1+ (NEGATIVE); Nitrite Urine UA NEGATIVE (Negative); Occult Blood Urine UA 2+ (Negative); Protein Urine UA TRACE (Negative); Specific Gravity Urine UA 1.025 (1.000-1.035); Urobilinogen Urine UA 0.2 E.U./dL (0.2); pH Urine UA 5.5 (4.5-8.0)
[2019-04-07 03:09] LABS: RBC Urine 1-5/HPF (0-5/HPF); Squamous Epithelial Cell Urine 0-1 /HPF (0-5/HPF); WBC Urine 30-100/HPF (0-5/HPF)
[2019-04-07 03:10] LABS: Bacteria Urine Occasional (0-1)
[2019-04-07 03:11] LABS: Culture Indicated Urine Specimen Cultured; Urine Amphetamines Negative (Negative); Urine Barbiturates Negative (Negative); Urine Benzodiazepines Negative (Negative); Urine Cocaine Negative (Negative); Urine MDMA Negative (Negative); Urine Methadone Negative (Negative); Urine Methamphetamines Negative (Negative); Urine Morphine/Opi cutoff 2000 Negative (Negative); Urine Oxycodone Negative (Negative); Urine Phencyclidine Negative (Negative); Urine Tetrahydrocannabinol Negative (Negative); Urine Tricyclic Antidepressant Positive (Negative)
--- NOTE | 2019-04-07 03:26 | PM.HP.1 ---
History of Present Illness Date Patient Seen: 04/07/19 Time Patient Seen: 03:27 Chief complaint: Dizziness Narrative: Ms. Cassie Avila a 78-year-old female with history significant for hypertension, insulin-dependent type 2 diabetes, CVA and pulmonary embolism on chronic anticoagulation with Eliquis, chronic kidney disease stage 4, venous insufficiency lower extremities, recurrent UTIs depression and chronic pain syndrome who presents to ED from [facility], with complaints of sudden onset of vertigo. The patient reports that she got up to go to the bathroom and had an onset severe vertigo and disequilibrium described as the room spinning approximately 30 minutes prior to arrival. The patient reports feeling well when she went to bed with no prodromal complaints of fevers or chills, headaches or dizziness, nasal congestion or sore throat. She reports no chest pain, shortness of breath cough or wheezing. She reports no complaints of abdominal pain, nausea vomiting, diarrhea or constipation. She was discharged on 03/30/2019 following admission for cellulitis in altered mental status from which the patient has recovered and still displays bilateral lower extremity venous stasis with redness and skin changes. She also has a history of neuropathy bilaterally from about the mid lower leg distal. Upon arrival to the ER the patient was found to be afebrile with temperature of 97.8?, bradycardia rate of 52, blood pressure 121/58, respirations of 14 on compromised with a room air saturation 98%. An EKG was obtained demonstrating sinus rhythm with ventricular rate of 67 with right bundle-branch block and revealed no ST or T-wave changes. The patient has been on Eliquis and had a fall approximately 1 week previous therefore head CT was obtained which demonstrates no acute intracranial pathology. On laboratory analysis she has a normal white count at 6.7 with a hemoglobin of 12.1 and hematocrit 35.4 and platelets of 307. Her electrolytes are within normal limits how ever she has a BUN of 17 and creatinine of 1.8 which is her baseline renal function. She has an EGFR of 27.3. Her glucose is 238. She had hemoglobin A1c reported on 03/10/2019 which was 8.7 consistent with a current reading. Her troponin was negative at less than 0.012. A trial ambulation in the ED found the patient was still unsteady with a 2 person assist and a walker. The patient is admitted to the hospital as she cannot return to her current care setting without assistance as she is high risk for fall while on Eliquis. Patient History Medical History Asthma (Acute) CVA (cerebral vascular accident) (Acute) Cataract (Acute) Chronic anticoagulation (Acute) Chronic pain (Acute) Depression (Acute) Diabetes (Acute) Diabetic neuropathy (Acute) H/O: hysterectomy (Acute) Hypertension (Acute) Lower extremity edema (Acute) Morbid obesity (Acute) PTSD (post-traumatic stress disorder) (Acute) Pulmonary embolism (Acute) Surgical History Hx of appendectomy (Acute) Hx of tonsillectomy (Acute) Hx of total knee arthroplasty (Acute) Family History Mother No known health problems Father Lung cancer Sister Lung cancer Tobacco dependence Social History household members: caregiver Smoking Status: Never smoker alcohol intake: former Family & Social History Family History Mother No known health problems Father Lung cancer Sister Lung cancer Tobacco dependence Social History: household members caregiver Safety & Behavioral: Feels Safe in Current Yes Environment Been Physically Hurt or No Threatened By a Person Tobacco & Substance use: Smoking Status Never smoker alcohol intake former alcohol intake frequency 0-2 drinks per day Substance Use Type does not use Comment: The patient lives at [facility], assisted-living with child caregiver support. Advanced directive: Direct discussion with the patient she wishes to be FULL CODE. She designates her son Brian Daugherty as her surrogate decision maker. Meds Home Medications Medication Instructions Recorded Confirmed Type Flovent Diskus 100 mcg INH BIDP PRN #0 09/08/16 04/07/19 History lamotrigine [Lamictal] 300 mg PO DAILY #0 09/08/16 04/07/19 History docusate sodium 200 mg PO QDAYP PRN #0 07/10/17 04/07/19 History atorvastatin 40 mg PO DAILY #0 01/18/18 04/07/19 History ascorbic acid (vitamin C) [Vitamin 500 mg PO DAILY 04/01/18 04/07/19 History C] furosemide [Lasix] 40 mg PO DAILY 04/01/18 04/07/19 History erythromycin 0.5 inch EYE-LEFT DAILY 08/08/18 04/07/19 History latanoprost 1 drp EYE-RIGHT DAILY 08/08/18 04/07/19 History sertraline [Zoloft] 50 mg PO BEDTIME #30 tab 08/12/18 04/07/19 Rx Eucerin Original 1 applic TOPICAL BID 08/13/18 04/07/19 History ammonium lactate 1 applic TOPICAL BID #0 08/13/18 03/28/19 History cholecalciferol (vitamin D3) 1,000 unit PO DAILY 08/13/18 04/07/19 History [Vitamin D3] glipizide 10 mg PO BID 08/13/18 04/07/19 History Lantus Solostar U-100 Insulin 10 unit SUBCUT BID 03/07/19 04/07/19 History acetaminophen 650 mg PO Q6H PRN 03/07/19 04/07/19 History albuterol sulfate [ProAir HFA] 2 puff INHALATION Q4H PRN 03/07/19 04/07/19 History guaifenesin [Cough Syrup] 10 ml PO Q4H PRN 03/07/19 04/07/19 History loratadine [Claritin] 10 mg PO DAILY PRN 03/07/19 04/07/19 History lorazepam [Ativan] 1 mg PO Q4HR PRN 03/07/19 04/07/19 History trazodone 50 mg PO BEDTIME PRN 03/07/19 04/07/19 History nystatin 1 applic TOPICAL TID PRN 03/08/19 03/28/19 History quetiapine 50 mg PO TID 03/08/19 04/07/19 History tramadol 100 mg PO BID #30 tab 03/09/19 04/07/19 Rx Eliquis 2.5 mg PO BID 03/24/19 04/07/19 History Humalog KwikPen Insulin 1 dose SUBCUT TID 03/24/19 04/07/19 History calcium carbonate [Tums] 1 - 2 tab PO Q4H PRN 03/24/19 04/07/19 History multivitamin with minerals 1 tab PO DAILY 03/24/19 03/28/19 History gabapentin 300 mg PO BID 03/28/19 04/07/19 History lidocaine 1 patch TOPICAL DAILY 03/28/19 04/07/19 History Allergies Allergy/AdvReac Type Severity Reaction Status Date / Time Iodine and Iodide Containing Allergy Intermediate i get Verified 03/24/19 13:55 Produc spots all [IODINE AND IODIDE over my CONTAINING PRODUC] body Penicillins [PENICILLINS] Allergy Intermediate makes my Verified 03/24/19 13:55 bones and joints ache aspirin [ASPIRIN] Allergy Unknown Verified 03/24/19 13:55 meclizine [MECLIZINE] Allergy Unknown Verified 03/24/19 13:55 codeine [CODEINE] AdvReac Unknown gives me Verified 03/24/19 13:55 bloody nightmares potassium [POTASSIUM] AdvReac Unknown Verified 03/24/19 13:55 Review of Systems Review of Systems All systems reviewed & are unremarkable except as noted in HPI and below Exam Vital Signs (past 8 hours): - 04/06/19 23:25 04/07/19 00:35 04/07/19 01:02 Temperature 97.8 F Pulse Rate 68 52 L 52 L Pulse Rate [Orthostatic Lying] Pulse Rate [Orthostatic Sitting] Pulse Rate [Orthostatic Standing] Respiratory Rate 14 14 13 Blood Pressure 124/60 Blood Pressure [Orthostatic Lying] Blood Pressure [Orthostatic Sitting] Blood Pressure [Orthostatic Standing] Blood Pressure [Right Arm] 121/58 L 118/49 L Pulse Oximetry 96 98 96 04/07/19 01:32 04/07/19 01:35 Temperature Pulse Rate 65 Pulse Rate [Orthostatic Lying] 52 L Pulse Rate [Orthostatic Sitting] 62 Pulse Rate [Orthostatic Standing] 65 Respiratory Rate 16 Blood Pressure Blood Pressure [Orthostatic Lying] 117/51 L Blood Pressure [Orthostatic Sitting] 129/59 L Blood Pressure [Orthostatic Standing] 117/57 L Blood Pressure [Right Arm] Pulse Oximetry 95 Oxygen Delivery Method Room Air Narrative Exam Narrative: GENERAL APPEARANCE: well developed, well nourished, in no acute distress. HEAD: Normocephalic, atraumatic, no scalp lesions. EYES: Ptosis left eye with crystalline appearing lens, gaze is conjugate, pupils equal, round, right pupil is reactive, left pupil is midpoint nonreactive, sclera non-icteric, extraocular movement intact, no nystagmus. EARS: normal external structures, no ear pain, tympanic membranes are pearly and translucent bilaterally. NOSE: sinuses non tender to percussion, no rhinorrhea ORAL CAVITY: mucosa moist without lesions or exudate, palate normal, tongue in midline. NECK/THYROID: neck supple, no jugular venous distention, no carotid bruit, no thyromegaly, trachea midline. LYMPH NODES: no cervical or supraclavicular lymphadenopathy. SKIN: warm and dry, no suspicious lesions, no rashes, good turgor. HEART: regular rate and rhythm, S1-S2 without murmur, no rubs or gallops, brisk capillary refill, 3+ edema bilateral lower extremities LUNGS: clear to auscultation bilaterally, no coarseness crackles or wheezing, no cough present CHEST: Symmetrical movement, no accessory muscle use ABDOMEN: Soft, round, dull to percussion no distention, no epigastric or abdominal tenderness on palpation, no guarding or peritoneal signs, no organomegaly, active bowel tones. BACK: nontender to palpation EXTREMITIES: moves all extremities, strength is 5/5 and symmetrical, skin changes of venous stasis with redness without warmth NEUROLOGIC: Patient is awake and alert and responsive oriented to person place and surroundings, no vision left eye, able to count fingers at 4 ft right eye, unable to read name elizabeth had 18 in, no facial asymmetry, no dysphagia or dysarthria, neuropathy/impaired sensation bilateral lower extremities from mid lower leg distal, hearing grossly normal to speech. PSYCH: alert, cooperative, cognitive function appears intact, stable mood with congruent affect Objective Labs Result Diagrams: 04/06/19 23:55 04/06/19 23:55 Labs: Laboratory Results - last 24 hr 04/06/19 04/06/19 04/07/19 23:55 23:55 02:35 WBC 6.7 RBC 3.94 L Hgb 12.1 Hct 35.4 L MCV 89.8 MCH 30.8 MCHC 34.3 RDW 14.8 Plt Count 307 Neut % (Auto) 63.0 Lymph % (Auto) 25.2 Rhea % (Auto) 6.9 Eos % (Auto) 3.9 Baso % (Auto) 1.0 Neut # (Auto) 4200 Lymph # (Auto) 1700 Rhea # (Auto) 500 Eos # (Auto) 300 Baso # (Auto) 100 Sodium 141 Potassium 4.0 Chloride 102 Carbon Dioxide 33 H BUN 17 Creatinine 1.80 H Estimated GFR 27.3 L BUN/Creatinine Ratio 9.4 Glucose 238 H Calcium 10.0 Troponin I < 0.012 Urine Color Urine Appearance Urine pH Ur Specific [place] Urine Protein Urine Glucose (UA) Urine Ketones Urine Occult Blood Urine Nitrate Urine Bilirubin Urine Urobilinogen Ur Leukocyte Esterase Urine RBC Urine WBC Ur Squamous Epith Cells Urine Bacteria Urine Yeast Ur Culture Indicated? Urine Opiates Screen Negative Ur Oxycodone Screen Negative Urine Methadone Screen Negative Ur Barbiturates Screen Negative U Tricyclic Antidepress Positive H Ur Phencyclidine Scrn Negative Ur Amphetamines Screen Negative U Methamphetamines Scrn Negative Ur MDMA Scrn (Ecstasy) Negative U Benzodiazepines Scrn Negative Urine Cocaine Screen Negative U Marijuana (THC) Screen Negative 04/07/19 02:35 WBC RBC Hgb Hct MCV MCH MCHC RDW Plt Count Neut % (Auto) Lymph % (Auto) Rhea % (Auto) Eos % (Auto) Baso % (Auto) Neut # (Auto) Lymph # (Auto) Rhea # (Auto) Eos # (Auto) Baso # (Auto) Sodium Potassium Chloride Carbon Dioxide BUN Creatinine Estimated GFR BUN/Creatinine Ratio Glucose Calcium Troponin I Urine Color Yellow Urine Appearance Cloudy Urine pH 5.5 Ur Specific [place] 1.025 Urine Protein Trace H Urine Glucose (UA) Negative Urine Ketones Negative Urine Occult Blood 2+ H Urine Nitrate Negative Urine Bilirubin Negative Urine Urobilinogen 0.2 Ur Leukocyte Esterase 1+ H Urine RBC 1-5/hpf Urine WBC 30-100/hpf H Ur Squamous Epith Cells 0-1 /hpf Urine Bacteria Occasional (0-1) Urine Yeast 0-1/hpf Ur Culture Indicated? Specimen cultured Urine Opiates Screen Ur Oxycodone Screen Urine Methadone Screen Ur Barbiturates Screen U Tricyclic Antidepress Ur Phencyclidine Scrn Ur Amphetamines Screen U Methamphetamines Scrn Ur MDMA Scrn (Ecstasy) U Benzodiazepines Scrn Urine Cocaine Screen U Marijuana (THC) Screen Assessment & Plan Assessment & Plan narrative: This is a 78-year-old female patient with multiple medical problems who presents to the ER with vertigo, disequilibrium and ataxia. She is high risk fall on Eliquis and unable to return to her assisted living facility. 1. Acute labyrinthitis, present on admission -patient without previous symptoms and denies having vertigo previously, develops incapacitating vertigo this morning while getting to use the bathroom. She has had no associated symptoms of nausea vomiting. -patient did have a fall 1 week ago and does on Eliquis, CT head obtained with no intracranial pathology or bleeding. -patient has been afebrile and reports no recent URI symptoms, tympanic membranes are pearly and translucent. -patient is afebrile with a normal white count at 6.7. Glucose is 238 with normal electrolytes. Orthostatic vital signs are negative. -neurological exam is negative except for pre-existing visual impairment which the patient describes as unchanged, she is alert and oriented and has has no nausea. -working diagnosis is vertigo secondary to acute labyrinthitis. -patient received Benadryl in the emergency department as meclizine is listed as an allergy. Patient had mild improvement in symptoms. -Benadryl 25 mg every 8 hours as needed for vertigo. -normal saline 75 cc/hour. 2. Chronic hypertension, stable -blood pressure is 121/58 -the patient is not on any routine antihypertensives but takes Lasix 40 mg daily which is continued. -monitor blood pressure 3. Diabetes type 2 , insulin-dependent, present on admission - blood glucose 238 on admission. -continue patient's home regimen of Lantus 10 units twice daily -glucose checks a.c. and HS with low-dose correctional sliding scale -will hold glipizide while inpatient -diabetic diet 4. Chronic venous stasis bilateral lower extremities, present on admission. -bilateral lower extremity redness without tenderness or warmth, no wounds or weeping. -patient has completed prior course of antibiotics for prior cellulitis. -patient is afebrile, white blood cell count 6.7. -will continue surveillance. 4. History of pulmonary embolism -on chronic anticoagulation with Eliquis -continue Eliquis 2.5 mg twice daily 5. Chronic kidney disease stage 4, chronic, present on admission, active -admission labs reflect BUN 17 and creatinine 1.8 which is baseline renal function for the patient. -avoid nephrotoxins but will continue Lasix 40 mg daily -monitor renal function 6. Chronic hyperlipidemia, stable. -continue atorvastatin 40 mg daily 7. Depression and anxiety -patient is alert and oriented. Patient typically keeps her eyes closed because of visual problems otherwise GCS score is 15 and she is briskly responsive to questions. -will continue current depression and anxiety medications. On previous admission it was noted that the patient was altered and there was question in regard to advanced directive. The patient is oriented at the time of encounter and clarification of advanced directive is obtained, the patient stating she wishes to be full code. The patient admitted to the hospital due to severity symptoms and inability to return to her former care setting safely. She is admitted as an observation patient with expected length of stay to be less than 2 midnights. Scores GCS [place] coma scale eye opening: Spontaneous Walter coma scale verbal response: Orientated [place] coma scale motor response: Obey commands [place] coma scale total score: 15
[2019-04-07] MEDS: SODIUM CHLORIDE 0.9% 1,000 ML 75 ML IV (03:39)
[2019-04-07 04:03] LABS: Procalcitonin 0.06 ng/mL (<0.5)
--- NOTE | 2019-04-07 05:05 | PC.ADMIT ---
[facility] Admission Note: The patient,Cassie Solares,78 y/o, was given written information regarding hospital policies, unit procedures and contact persons. Patient's smoking status: Never smoker. Vital Signs - 8 hr 04/06/19 23:25 04/07/19 00:35 04/07/19 01:02 Temperature 97.8 F Pulse Rate 68 52 L 52 L Pulse Rate [Orthostatic Lying] Pulse Rate [Orthostatic Sitting] Pulse Rate [Orthostatic Standing] Respiratory Rate 14 14 13 Blood Pressure 124/60 Blood Pressure [Orthostatic Lying] Blood Pressure [Orthostatic Sitting] Blood Pressure [Orthostatic Standing] Blood Pressure [Right Arm] 121/58 L 118/49 L Pulse Oximetry 96 98 96 04/07/19 01:32 04/07/19 01:35 04/07/19 03:30 Temperature 96.7 F L Pulse Rate 65 94 H Pulse Rate [Orthostatic Lying] 52 L Pulse Rate [Orthostatic Sitting] 62 Pulse Rate [Orthostatic Standing] 65 Respiratory Rate 16 18 Blood Pressure 159/75 H Blood Pressure [Orthostatic Lying] 117/51 L Blood Pressure [Orthostatic Sitting] 129/59 L Blood Pressure [Orthostatic Standing] 117/57 L Blood Pressure [Right Arm] Pulse Oximetry 95 96 Patient admitted to [facility] at 0300. A/O x3, forgetful, but calm and cooperative. 2 person assist to transfer to bed, assists with mobility fairly well once in bed. NS at 75ml/hr started, denies pain, brief placed on per her request, call light in reach and bed alarm on. Denies pain or dizziness while lying in bed.. See assessment notes.
[2019-04-07] MEDS: APIXABAN 5 MG TABLET 2.5 MG PO ×2 (08:17→20:19)
[2019-04-07] MEDS: FUROSEMIDE 40 MG TABLET PO (08:18)
[2019-04-07] MEDS: GABAPENTIN 300 MG CAPSULE PO ×2 (08:18→20:19)
[2019-04-07] MEDS: QUETIAPINE 25 MG TABLET 50 MG PO ×2 (08:19→20:16)
[2019-04-07] MEDS: LIDOCAINE PATCH 1 EACH ADH..PATCH TOP (08:19)
[2019-04-07] MEDS: lamoTRIgine 100 MG TABLET 300 MG PO (08:20)
[2019-04-07] MEDS: ERYTHROMYCIN OPHTH 1 GM OINT EYE-LEFT (08:20)
[2019-04-07] MEDS: INSULIN ASPART 100 UNIT/ML INSULN PEN SUBCUT ×4 (08:21→20:16)
[2019-04-07] MEDS: INSULIN GLARGINE 100 UNIT/ML 3ML PEN 10 UNIT SUBCUT (08:22)
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
--- NOTE | 2019-04-07 09:35 | PT.IIE ---
Surgical History (Last Reviewed 04/07/19 @ 03:40 by SHAUNA Morales) Hx of appendectomy (Acute) Hx of tonsillectomy (Acute) Hx of total knee arthroplasty (Acute) Medical History (Last Reviewed 04/07/19 @ 03:39 by SHAUNA Morales) Asthma (Acute) CVA (cerebral vascular accident) (Acute) Cataract (Acute) Chronic anticoagulation (Acute) Chronic pain (Acute) Depression (Acute) Diabetes (Acute) Diabetic neuropathy (Acute) H/O: hysterectomy (Acute) Hypertension (Acute) Lower extremity edema (Acute) Morbid obesity (Acute) PTSD (post-traumatic stress disorder) (Acute) Pulmonary embolism (Acute) Physical Therapy Inpatient Evaluation/Re-Eval M1 PT/OT-IP Prior Functional Status Start: 04/07/19 10:10 Freq: NEEDED Status: Active Protocol: Document 04/07/19 09:35 AB (Rec: 04/07/19 10:30 AB [id number]) Medical Review Prior Functional Status Medical History Reviewed Yes Communication able to make needs known Mobility and Gait pt stated that she is modified independent with ambulation using 4WW but uses a manual w/ c for outdoor mobility Activities of Daily Living and IADL's stated that she can do her UB dressing and mostly wear dresses and caregivers at [facility] assists her for her socks; she has assists with showers; able to use the toilet by herself Social History Household Members caregiver Living Arrangements Assisted Living Number of Floors (Floors) One Floor Number of Stairs To Enter/Railing? pt lives at [facility] Home Environment Standard Height Toilet Home Equipment Four Wheel Walker Manual Wheelchair Shower Seat with Backrest Grab Bars Near Toilet Grab Bars In Shower Employment Status Retired M2 PT-IP Current Condition Start: 04/07/19 10:10 Freq: NEEDED Status: Active Protocol: Document 04/07/19 09:35 AB (Rec: 04/07/19 10:30 AB [id number]) Physical Therapy Current Condition Current Condition Evaluation Date 04/07/19 Treatment Diagnosis vertigo; fall; difficulty in walking Onset Date 04/07/19 Precautions Other Precautions contact precaution: MRSA nares falls M3 PT-IP Subjective Start: 04/07/19 10:10 Freq: NEEDED Status: Active Protocol: Document 04/07/19 09:35 AB (Rec: 04/07/19 10:30 AB [id number]) Subjective Physical Therapy Visit Type Type Initial Evaluation Visit Start Time 09:35 Visit Stop Time 10:03 Total Visit Minutes 28 Number of [employer] Visits 0 Physical Therapy Visit Comments Patient Comments pt requires encouragement during PT session; pt is easily agitated M4 PT-IP Mobility and Gait Start: 04/07/19 10:10 Freq: NEEDED Status: Active Protocol: Document 04/07/19 09:35 AB (Rec: 04/07/19 10:30 AB [id number]) PT-Bed Mobility Assessment Supine to Sit Supine to Sit Standby Assistance Sit to Supine Sit to Supine Maximum Assistance 1 Person Assistance Scooting Scooting to Edge of Bed Standby Assistance PT-Transfer Assessment Sit to and From Stand Sit to and from Stand Minimal Assistance Equipment Transfer Assistive Device Gait Belt Front Wheeled Walker Orthotic/Prosthetic Devices or Brace: No Comments Mobility Comments pt completed sit to stand from EOB min A and took a few steps ~ 3 ft using FWW min A and became agitated. pt refused to sit upon the chair. pt completed sit to supine max A and max cues. positioned pt on the bed. call light and table placed within reach. Gait Assessment Gait Gait Assistance Required: Minimum Assistance Distance (Feet) 3 Able to Maintain Weight Bearing Status Yes During Gait Assistive Devices Assistive Device Gait Belt Front Wheeled Walker Orthotic/Prosthetic Devices or Brace: No Gait Deviations General Gait Pattern Antalgic Decreased Stride Length Decreased Feet Clearance Factors Limiting Gait Function Factors Limiting Gait Function Decreased Activity Tolerance Decreased Strength Difficulty Following Directions Pain Poor Balance Poor Safety Awareness PT-Balance Assessment Sitting Balance and Reactions Static Sitting Balance Ability Good Dynamic Sitting Balance Ability Good Standing Balance and Reactions Static Standing Balance Ability Fair Dynamic Standing Balance Ability Fair Device Used FWW M5 PT-IP Objective Assessments Start: 04/07/19 10:10 Freq: NEEDED Status: Active Protocol: Document 04/07/19 09:35 AB (Rec: 04/07/19 10:30 AB [id number]) Orientation Orientation/Cognition Level of Alertness Confusional State Orientation Name Safety Awareness Decreased Safety Awareness Gross Range of Motion Lower Extremity ROM Assessment Within Functional Limits Strength Lower Extremity Strength Assessment Bilaterally Impaired Hip 3+/5 Knee 3+/5 Sensation Assessment Sensation Gross Sensation WNL Muscle Tone Muscle Tone WNL Yes M6 PT-IP Treatment Start: 04/07/19 10:10 Freq: NEEDED Status: Active Protocol: Document 04/07/19 09:35 AB (Rec: 04/07/19 10:30 AB [id number]) Physical Therapy Treatment Education Education Provided Safety M7 PT-IP Assessment and Plan Start: 04/07/19 10:10 Freq: NEEDED Status: Active Protocol: Document 04/07/19 09:35 AB (Rec: 04/07/19 10:30 AB [id number]) PT Summary Assessment and Plan Potential Rehabilitation Potential Fair Status of Condition at Evaluation Evolving Summary Impairments Pain ROM Strength Balance Coordination Sensation Tone Cognition Bed Mobility Transfers Gait Activity Tolerance Assessment Summary pt requiring max A with sit to supine, min A with mobility and max cues for safety. d/c plan depending on progress. pt continues to c/o dizziness. pt is not too cooperative during evaluation and is easily agitated. pt at this time will benefit from SNF rehab to improve strenght and functional mobility. Goals Bed Mobility Goal Standby Assistance Transfer Goal Standby Assistance Front Wheeled Walker Four Wheeled Walker Gait Goal Standby Assistance Front Wheel Walker Four Wheel Walker Gait Distance 150 Days to Meet Goals 5 Frequency of Treatment Frequency Of Treatment Once a Day Treatment Plan Physical Therapy Treatment Plan Bed Mobility Training Transfer Training Gait Training Therapeutic Exercise Balance Retraining Discharge Planning Hot or Cold Pack Neuromuscular Re-ed Coordination Retraining Manual Therapy Recommendations To Nursing Amount of Assist Needed 1 Person Assist Discharge Recommendations PT Discharge Recommendations SNF Rehab Equipment Needed for Home Before FWW if not safe with 4WW Discharge
--- NOTE | 2019-04-07 10:41 | DI.MRI.S_ITS ---
PROCEDURE: MR HEAD/BRAIN WO CON INDICATIONS: dizziness r/o stroke TECHNIQUE: Non-contrast axial T1 spin echo, axial T2 fast spin echo, sagittal and axial FLAIR, coronal T2 fast spin echo, axial gradient echo, axial diffusion and ADC through the brain. COMPARISON: [facility], CT, CT HEAD/BRAIN WO CON, 04/06/2019, 23:51. FINDINGS: Image quality: Excellent. CSF spaces: Ventricles appear symmetric in size and shape. Basal cisterns are patent. No extra-axial fluid collections. Brain: No intracranial bleeds or mass effects. There is cerebral volume loss for age. There are periventricular and deep white matter chronic small vessel ischemic changes. Brainstem appears normal. Diffusion-weighted images show no acute ischemic insults. No chronic ischemic insults. Normal intravascular flow voids are present. Skull and face: Calvarial bone marrow is normal in signal. Orbits are redemonstrate mild irregularity along the posterior lateral aspect of the left globe with probable small scleral band present. Sinuses: Small mucous retention cyst at the base of the left maxillary sinus. Sinuses are otherwise clear.. IMPRESSION: 1. No evidence of acute intracranial process. 2. Mild age-related changes. 3. Irregularity of the posterior surface of left globe suggesting remote injury or postsurgical change. Dictated by: Ayleen Zhang M.D. on 04/07/2019 at 13:12 Approved by: Ayleen Zhang M.D. on 04/07/2019 at 13:22
--- NOTE | 2019-04-07 10:42 | PM.PN.1 ---
Subjective Date Patient Seen: 04/07/19 Interval history: Patient reports she is still dizzy. She reports she is dizzy both when lying and sitting or standing. She denies vertigo per se. She just feels dizzy. She has no slurring of her speech. No numbness or tingling. No weakness. Patient states she was up to the sink last night in her bathroom when she became suddenly dizzy. She does not know how she got to the toilet felt unsafe with ambulation. She was seen by therapy today and found to be a moderate assist and therefore continues further evaluation. Reviewing the patient's medication indicate that her Seroquel has been increased from 50 twice daily to 50 3 times daily. This has occurred since her discharge from the hospital last week. Exam Vital Signs (past 8 hours): - 04/07/19 03:30 04/07/19 07:52 Temperature 96.7 F L 97 F L Pulse Rate 94 H 48 L Respiratory Rate 18 18 Blood Pressure 159/75 H 143/65 H Pulse Oximetry 96 95 Oxygen Delivery Method Room Air Oxygen Flow Rate 0 Narrative Exam Narrative: Awake alert and appropriate, [place] fluid HEENT: Normocephalic atraumatic, extraocular muscles are intact, tongue is midline, there is no facial asymmetry Lungs: Clear to auscultation Cardiac exam: Regular rate and rhythm normal S1-S2 Abdomen: Soft and nontender Neuro exam: Cranial nerves are intact, strength is symmetric and equal, sensation is grossly intact reflexes are equal, gait is not assessed Objective Labs Result Diagrams: 04/06/19 23:55 04/06/19 23:55 Labs: Laboratory Results - last 24 hr 04/06/19 04/06/19 04/06/19 23:55 23:55 23:55 WBC 6.7 RBC 3.94 L Hgb 12.1 Hct 35.4 L MCV 89.8 MCH 30.8 MCHC 34.3 RDW 14.8 Plt Count 307 Neut % (Auto) 63.0 Lymph % (Auto) 25.2 [place] % (Auto) 6.9 Eos % (Auto) 3.9 Baso % (Auto) 1.0 Neut # (Auto) 4200 Lymph # (Auto) 1700 [place] # (Auto) 500 Eos # (Auto) 300 Baso # (Auto) 100 Sodium 141 Potassium 4.0 Chloride 102 Carbon Dioxide 33 H BUN 17 Creatinine 1.80 H Estimated GFR 27.3 L BUN/Creatinine Ratio 9.4 Glucose 238 H Calcium 10.0 Troponin I < 0.012 Procalcitonin 0.06 Urine Color Urine Appearance Urine pH Ur Specific [place] Urine Protein Urine Glucose (UA) Urine Ketones Urine Occult Blood Urine Nitrate Urine Bilirubin Urine Urobilinogen Ur Leukocyte Esterase Urine RBC Urine WBC Ur Squamous Epith Cells Urine Bacteria Urine Yeast Ur Culture Indicated? Nasal Screen MRSA (PCR) Urine Opiates Screen Ur Oxycodone Screen Urine Methadone Screen Ur Barbiturates Screen U Tricyclic Antidepress Ur Phencyclidine Scrn Ur Amphetamines Screen U Methamphetamines Scrn Ur MDMA Scrn (Ecstasy) U Benzodiazepines Scrn Urine Cocaine Screen U Marijuana (THC) Screen 04/07/19 04/07/19 04/07/19 02:35 02:35 03:10 WBC RBC Hgb Hct MCV MCH MCHC RDW Plt Count Neut % (Auto) Lymph % (Auto) [place] % (Auto) Eos % (Auto) Baso % (Auto) Neut # (Auto) Lymph # (Auto) [place] # (Auto) Eos # (Auto) Baso # (Auto) Sodium Potassium Chloride Carbon Dioxide BUN Creatinine Estimated GFR BUN/Creatinine Ratio Glucose Calcium Troponin I Procalcitonin Urine Color Yellow Urine Appearance Cloudy Urine pH 5.5 Ur Specific [place] 1.025 Urine Protein Trace H Urine Glucose (UA) Negative Urine Ketones Negative Urine Occult Blood 2+ H Urine Nitrate Negative Urine Bilirubin Negative Urine Urobilinogen 0.2 Ur Leukocyte Esterase 1+ H Urine RBC 1-5/hpf Urine WBC 30-100/hpf H Ur Squamous Epith Cells 0-1 /hpf Urine Bacteria Occasional (0-1) Urine Yeast 0-1/hpf Ur Culture Indicated? Specimen cultured Nasal Screen MRSA (PCR) Positive for mrsa H Urine Opiates Screen Negative Ur Oxycodone Screen Negative Urine Methadone Screen Negative Ur Barbiturates Screen Negative U Tricyclic Antidepress Positive H Ur Phencyclidine Scrn Negative Ur Amphetamines Screen Negative U Methamphetamines Scrn Negative Ur MDMA Scrn (Ecstasy) Negative U Benzodiazepines Scrn Negative Urine Cocaine Screen Negative U Marijuana (THC) Screen Negative Assessment & Plan (1) Dizziness: Problem details: Patient continues to be dizzy. She is clear that she does not have vertigo. Given her multiple medical problems including hyperglycemia hypertension and prior stroke will rule out a midbrain stroke at this time. Will obtain MRI of the brain today. In addition patient's Seroquel has been increased to 3 times daily. Will decrease her Seroquel to 50 mg at bedtime. Current visit: Yes Status: Acute (2) Venous insufficiency of both lower extremities: Problem details: Continue dressing changes as previously Current visit: No Status: Acute (3) Chronic renal failure, stage 4 (severe): Problem details: continue current Lasix dose Chronic renal failure, unchanged Current visit: No Status: Acute (4) Hyperglycemia: Problem details: Blood sugars continue to be elevated, will continue with basal bolus insulin. Current visit: No Status: Acute (5) Hypertension: Current visit: No Status: Acute Assessment & Plan narrative: Continue with physical therapy occupational consultation. Will obtain an MRI. Will adjust medications will re-evaluate in the morning.
--- NOTE | 2019-04-07 10:47 | P.PN_ITS ---
Subjective Date Patient Seen: 04/07/19 Interval history: Patient reports she is still dizzy. She reports she is dizzy both when lying and sitting or standing. She denies vertigo per se. She just feels dizzy. She has no slurring of her speech. No numbness or tingling. No weakness. Patient states she was up to the sink last night in her bathroom when she became suddenly dizzy. She does not know how she got to the toilet felt unsafe with ambulation. She was seen by therapy today and found to be a moderat e assist and therefore continues further evaluation. Reviewing the patient's medication indicate that her Seroquel has been increased from 50 twice daily to 50 3 times daily. This has occurred since her discharge from the hospital last week. Exam Vital Signs (past 8 hours): - 04/07/19 03:30 04/07/19 07:52 Temperature 96.7 F L 97 F L Pulse Rate 94 H 48 L Respiratory Rate 18 18 Blood Pressure 159/75 H 143/65 H Pulse Oximetry 96 95 Oxygen Delivery Method Room Air Oxygen Flow Rate 0 Narrative Exam Narrative: Awake alert and appropriate, [place] fluid HEENT: Normocephalic atraumatic, extraocular muscles are intact, tongue is midline, there is no facial asymmetry Lungs: Clear to auscultation Cardiac exam: Regular rate and rhythm normal S1-S2 Abdomen: Soft and nontender Neuro exam: Cranial nerves are intact, strength is symmetric and equal, sensation is grossly intact reflexes are equal, gait is not assessed Objective Labs Result Diagrams: 04/06/19 23:55 04/06/19 23:55 Labs: Laboratory Results - last 24 hr 04/06/19 04/06/19 04/06/19 23:55 23:55 23:55 WBC 6.7 RBC 3.94 L Hgb 12.1 Hct 35.4 L MCV 89.8 MCH 30.8 MCHC 34.3 RDW 14.8 Plt Count 307 Neut % (Auto) 63.0 Lymph % (Auto) 25.2 [place] % (Auto) 6.9 Eos % (Auto) 3.9 Baso % (Auto) 1.0 Neut # (Auto) 4200 Lymph # (Auto) 1700 [place] # (Auto) 500 Eos # (Auto) 300 Baso # (Auto) 100 Sodium 141 Potassium 4.0 Chloride 102 Carbon Dioxide 33 H BUN 17 Creatinine 1.80 H Estimated GFR 27.3 L BUN/Creatinine Ratio 9.4 Glucose 238 H Calcium 10.0 Troponin I < 0.012 Procalcitonin 0.06 Urine Color Urine Appearance Urine pH Ur Specific [place] Urine Protein Urine Glucose (UA) Urine Ketones Urine Occult Blood Urine Nitrate Urine Bilirubin Urine Urobilinogen Ur Leukocyte Esterase Urine RBC Urine WBC Ur Squamous Epith Cells Urine Bacteria Urine Yeast Ur Culture Indicated? Nasal Screen MRSA (PCR) Urine Opiates Screen Ur Oxycodone Screen Urine Methadone Screen Ur Barbiturates Screen U Tricyclic Antidepress Ur Phencyclidine Scrn Ur Amphetamines Screen U Methamphetamines Scrn Ur MDMA Scrn (Ecstasy) U Benzodiazepines Scrn Urine Cocaine Screen U Marijuana (THC) Screen 04/07/19 04/07/19 04/07/19 02:35 02:35 03:10 WBC RBC Hgb Hct MCV MCH MCHC RDW Plt Count Neut % (Auto) Lymph % (Auto) [place] % (Auto) Eos % (Auto) Baso % (Auto) Neut # (Auto) Lymph # (Auto) [place] # (Auto) Eos # (Auto) Baso # (Auto) Sodium Potassium Chloride Carbon Dioxide BUN Creatinine Estimated GFR BUN/Creatinine Ratio Glucose Calcium Troponin I Procalcitonin Urine Color Yellow Urine Appearance Cloudy Urine pH 5.5 Ur Specific [place] 1.025 Urine Protein Trace H Urine Glucose (UA) Negative Urine Ketones Negative Urine Occult Blood 2+ H Urine Nitrate Negative Urine Bilirubin Negative Urine Urobilinogen 0.2 Ur Leukocyte Esterase 1+ H Urine RBC 1-5/hpf Urine WBC 30-100/hpf H Ur Squamous Epith Cells 0-1 /hpf Urine Bacteria Occasional (0-1) Urine Yeast 0-1/hpf Ur Culture Indicated? Specimen cultured Nasal Screen MRSA (PCR) Positive for mrsa H Urine Opiates Screen Negative Ur Oxycodone Screen Negative Urine Methadone Screen Negative Ur Barbiturates Screen Negative U Tricyclic Antidepress Positive H Ur Phencyclidine Scrn Negative Ur Amphetamines Screen Negative U Methamphetamines Scrn Negative Ur MDMA Scrn (Ecstasy) Negative U Benzodiazepines Scrn Negative Urine Cocaine Screen Negative U Marijuana (THC) Screen Negative Assessment & Plan (1) Dizziness: Problem details: Patient continues to be dizzy. She is clear that she does not have vertigo. Gi esteban her multiple medical problems including hyperglycemia hypertension and prior stroke will rule out a midbrain stroke at this time. Will obtain MRI of the brain today. In addition patient's Seroquel has been increased to 3 times daily. Will decrease her Seroquel to 50 mg at bedtime. Current visit: Yes Status: Acute (2) Venous insufficiency of both lower extremities: Problem details: Continue dressing changes as previously Current visit: No Status: Acute (3) Chronic renal failure, stage 4 (severe): Problem details: continue current Lasix dose Chronic renal failure, unchanged Current visit: No Status: Acute (4) Hyperglycemia: Problem details: Blood sugars continue to be elevated, will continue with basal bolus insulin. Current visit: No Status: Acute (5) Hypertension: Current visit: No Status: Acute Assessment & Plan narrative: Continue with physical therapy occupational consultation. Will obtain an MRI. Will adjust medications will re-evaluate in the morning.
--- NOTE | 2019-04-07 14:47 | CM.DPC ---
DCP Cont: Was able to get in contact with patient's son, Brian. He confirmed that he is the POA, and makes medical as well as financial decisions for patient. Updated him on her hospital stay. He was appreciative of the update. He sees his mother almost every day after work. He stated, she can't see very well, only shapes, since her macular degeneration has gotten worse. He brings her in audio books as well. Let him know that she could potentially be discharged tomorrow, but nurse will need to come and evaluate. P: DCP to continue to follow closely, and collaborate with Jacqueline in admissions. Alison Núñez, CLAUDIA/Self Pay Collector
--- NOTE | 2019-04-07 15:47 | PC.NURSE ---
patient is capable of self care but want help with all care, when said she needed to do self care as much as possible and if needed help we will help patient seem to be agitated
[2019-04-07] MEDS: INSULIN GLARGINE 100 UNIT/ML 3ML PEN 15 UNIT SUBCUT (20:15)
[2019-04-07] MEDS: ATORVASTATIN 20 MG TABLET 40 MG PO (20:19)
[2019-04-07] MEDS: LATANOPROST 0.005% OPHTH 2.5 ML 1 DROPS EYE-RIGHT (20:19)
[2019-04-07] MEDS: SERTRALINE 50 MG TABLET PO (20:20)
[2019-04-08 01:00] VITALS: BP 151/69; PULSE 52; RESP 18; TEMP 36.4; O2SAT 96
[2019-04-08] MEDS: TRAMADOL 50 MG TABLET 100 MG PO (02:55)
[2019-04-08 04:15] VITALS: BP 146/62; PULSE 55; TEMP 37; O2SAT 96
[2019-04-08 05:24] LABS: BUN Creatinine Ratio 8.2 (6-22); Blood Urea Nitrogen 14 mg/dL (7-17); Calcium 9.9 mg/dL (8.4-10.2); Carbon Dioxide 31 mmol/L (22-32); Chloride 104 mmol/L (98-107); Estimated Glomerular Filt Rate 29.1 mL/min (>60); Glucose 138 mg/dL (80-110); HEMOLYSIS < 15 (0-50); Potassium 4.1 mmol/L (3.4-5.1); Sodium 141 mmol/L (137-145)
--- NOTE | 2019-04-08 06:14 | PC.NURSE ---
Patient has been up to [facility] three times overnight, uses call light most of time, no c/o dizziness but is slightly unsteady. HRR 50s, BP 140s-150s/60s. Tramadol given per request for back pain as ordered on JAN.
[2019-04-08 07:00] VITALS: O2SAT 94
--- NOTE | 2019-04-08 08:44 | CM.DPC ---
Addendum entered by Serina Rothman LPN 04/08/19 15:16: DR. Chapa and SHAUNA Guzman did speak about POC and collaborated on medication ideas. Megan stated pt was fine for return and that she and Dr. Rodriguez would continue to follow pt closely at the [facility] level. Yolanda did her assessment at 1300 and ok'd pt for return. Orders were clarified and finalized by DR. Chapa, faxed to and [facility] has set up w/c van transport for [id number]. CLAUDIA Uriarte has been updated. Have left a message for JARAD Torres on his work cell re the details of pt's return to today. Addendum entered by Serina Rothman LPN 04/08/19 11:43: CLAUDIA Guerrero will be over from to assess pt about 1300 today. Addendum entered by Serina Rothman LPN 04/08/19 11:34: Was just updated by Dr. Chapa. She states pt is ready to return to and wishes the facility to come as soon as possible to complete their assessment. She is also planning to call Dr. Rodriguez. Jacqueline is update and will send over either Yolanda or another nurse to complete the assessment process. Pt has been here just over the 24 hour phil so their regulation dictates same. Addendum entered by Serina Rothman LPN 04/08/19 10:14: Case discussed in Rounds. Dr. Chapa stated she would very much like to discuss this case with Dr. Rodriguez and will call her as soon as her caseload triage allows, likely in next couple of hours. Original Note: DCP: continued: case received, EMR reviewed and spoke this morning with Jacqueline/ [facility] admissions liaison. Had noted in case review that the Seroquel dosing is being changed and discussed consideration of a Hospitalist (Dr. Chapa on today) and Consumer Science Teacher: Dr. Rodriguez and SHAUNA Mcguire: pager: [phone] conversation re the POC. She agreed and will help facilitate prn. Plan to discuss this in Team Rounds this morning. Anticipate dc back to [facility] when stable for same. Will update POA son Brian as more is known. (OF NOTE: READMIT x 2 < 30 days: 03/07-03/09 OBS 03/28-03/30: INPT)
[2019-04-08] MEDS: APIXABAN 5 MG TABLET 2.5 MG PO (08:45)
[2019-04-08] MEDS: GABAPENTIN 300 MG CAPSULE PO (08:46)
[2019-04-08] MEDS: lamoTRIgine 100 MG TABLET 300 MG PO (08:47)
[2019-04-08] MEDS: FUROSEMIDE 40 MG TABLET PO (08:47)
[2019-04-08] MEDS: INSULIN ASPART 100 UNIT/ML INSULN PEN SUBCUT ×2 (08:47→12:39)
--- NOTE | 2019-04-08 09:24 | PC.NURSE ---
Pt checked on and assessed, pt initially requested that this RN allow her to finish breakfast before taking her medications. Pt was oriented to self and place. Unable to perform full mental status assessment. This RN then performed physical assessment, auscultating lungs, heart and abdomen. Pt became agitated suddenly and told this RN to get out of her room. Pt then kept yelling get out, get out, get out. Pt attempted to grab this RNs arm, tried to throw glass of water at this RN. This RN attempted to verbally de-escalate, without success. Pt was left with glass door closed but pt visible. Call light left in reach. Will continue to monitor, notify MD if pt's behavior continues to escalate or does not calm down. Pt is now working with PT, ambulating to bathroom with assistance. Pt does not seem to be agitated at this time. Will continue to monitor.
[2019-04-08] MEDS: ERYTHROMYCIN OPHTH 1 GM OINT EYE-LEFT (09:27)
[2019-04-08] MEDS: LIDOCAINE PATCH 1 EACH ADH..PATCH TOP (09:27)
[2019-04-08] MEDS: SODIUM CHLORIDE 0.9% FLUSH 10 ML IV (09:28)
[2019-04-08 10:30] VITALS: BP 164/66; PULSE 75; RESP 15; TEMP 36.8; O2SAT 94
--- NOTE | 2019-04-08 10:56 | PT.IPTN ---
Current Diagnoses Essential (primary) hypertension (04/07/19) Venous insufficiency (chronic) (peripheral) (04/07/19) Chronic kidney disease, stage 4 (severe) (04/07/19) Dizziness and giddiness (04/07/19) Hyperglycemia, unspecified (04/07/19) Physical Therapy Treatment Note M2 PT-IP Current Condition Start: 04/07/19 10:10 Freq: NEEDED Status: Active Protocol: Document 04/07/19 09:35 AB (Rec: 04/07/19 10:30 AB [id number]) Physical Therapy Current Condition Current Condition Evaluation Date 04/07/19 Treatment Diagnosis vertigo; fall; difficulty in walking Onset Date 04/07/19 Precautions Other Precautions contact precaution: MRSA nares falls M3 PT-IP Subjective Start: 04/07/19 10:10 Freq: NEEDED Status: Active Protocol: Document 04/08/19 10:48 SA (Rec: 04/08/19 10:56 SA [id number]) Subjective Physical Therapy Visit Type Type Treatment Note Visit Start Time 10:10 Visit Stop Time 10:34 Total Visit Minutes 24 Number of ADVANCE SCOUT Visits 1 Physical Therapy Visit Comments Patient Comments Pt states she needs to use the bathroom, agreeable to walk into bathroom. Patient Goals To get back to [facility]. Therapy Pain Assessment Pain When Pain Assessed At Rest Pain Present Pain Present Denied Pain M4 PT-IP Mobility and Gait Start: 04/07/19 10:10 Freq: NEEDED Status: Active Protocol: Document 04/08/19 10:48 SA (Rec: 04/08/19 10:56 SA [id number]) PT-Transfer Assessment Sit to and From Stand Sit to and from Stand Contact Guard Assistance Minimal Assistance 1 Person Assistance Equipment Transfer Assistive Device Gait Belt Front Wheeled Walker Orthotic/Prosthetic Devices or Brace: No Transfers Transfer Destination Chair Toilet Transfer Technique Stand Step Pivot Transfer Ability Level of Assist Contact Guard Assistance Comments Mobility Comments Stand pivot transfers on/off toilet and chair with FWW and CGA. Repeated sit to stands completed with Min A progressing to CGA. Pt declined getting in/out of bed . Gait Assessment Gait Gait Assistance Required: Contact Guard Assist 1 Person Assist Distance (Feet) 30 Able to Maintain Weight Bearing Status Yes During Gait Assistive Devices Assistive Device Gait Belt Front Wheeled Walker Orthotic/Prosthetic Devices or Brace: No Gait Deviations General Gait Pattern Antalgic Decreased Stride Length Decreased Feet Clearance Factors Limiting Gait Function Factors Limiting Gait Function Decreased Activity Tolerance Decreased Strength Difficulty Following Directions Poor Safety Awareness Comments Gait Comments Short walks to/from bathroom and out to caicedo and back with FWW and CGA, mod cues for safety and upright posture. Pt denies dizziness and feels like she is back to normal PT-Balance Assessment Sitting Balance and Reactions Static Sitting Balance Ability Good Dynamic Sitting Balance Ability Good M5 PT-IP Objective Assessments Start: 04/07/19 10:10 Freq: NEEDED Status: Active Protocol: Document 04/07/19 09:35 AB (Rec: 04/07/19 10:30 AB [id number]) Orientation Orientation/Cognition Level of Alertness Confusional State Orientation Name Safety Awareness Decreased Safety Awareness Gross Range of Motion Lower Extremity ROM Assessment Within Functional Limits Strength Lower Extremity Strength Assessment Bilaterally Impaired Hip 3+/5 Knee 3+/5 Sensation Assessment Sensation Gross Sensation WNL Muscle Tone Muscle Tone WNL Yes M6 PT-IP Treatment Start: 04/07/19 10:10 Freq: NEEDED Status: Active Protocol: Document 04/08/19 10:48 SA (Rec: 04/08/19 10:56 SA [id number]) Physical Therapy Treatment Exercises Exercises Ankle Pumps Seated Knee Flexion/Extension Education Education Provided Safety M7 PT-IP Assessment and Plan Start: 04/07/19 10:10 Freq: NEEDED Status: Active Protocol: Document 04/08/19 10:48 SA (Rec: 04/08/19 10:56 SA [email or web address]) PT Summary Assessment and Plan Summary Impairments Pain ROM Strength Balance Coordination Sensation Tone Cognition Bed Mobility Transfers Gait Activity Tolerance Assessment Summary Unable to assess bed mobility this session. Pt CGA with gait and transfers and set up for hygiene in bathroom. Pt is impulsive but this may be baseline for her, anticipate d /c back to [facility] when medically stable. Frequency of Treatment Frequency Of Treatment Once a Day Treatment Plan Physical Therapy Treatment Plan Bed Mobility Training Transfer Training Gait Training Therapeutic Exercise Balance Retraining Discharge Planning Hot or Cold Pack Neuromuscular Re-ed Coordination Retraining Manual Therapy
--- NOTE | 2019-04-08 11:56 | P.DS_ITS ---
History of Present Illness Date Patient Seen: 04/08/19 Chief complaint: Dizziness Narrative: Ms. Cassie Avila a 78-year-old female with history significant for hypertension, insulin-dependent type 2 diabetes, CVA and pulmonary embolism on chronic anticoagulation with Eliquis, chronic kidney disease stage 4, venous insufficiency lower extremities, recurrent UTIs depression and chronic pain syndrome who presents to ED from [facility], hospital for special care, with complaints of sudden onset of vertigo. The patient reports that she got up to go to the bathroom and had an onset severe vertigo and disequilibrium described as the room spinning approximately 30 minutes prior to arrival. The patient reports feeling well when she went to bed with no prodromal complaints of fevers or chills, headaches or dizziness, nasal congestion or sore throat. She reports no chest pain, shortness of breath cough or wheezing. She reports no complaints of abdominal pain, nausea vomiting, diarrhea or constipation. She was discharged on 03/30/2019 following admission for cellulitis in altered mental status from which the patient has recovered and still displays bilateral lower extremity venous stasis with redness and skin changes. She also has a history of neuropathy bilaterally from about the mid lower leg distal. Upon arrival to the ER the patient was found to be afebrile with temperature of 97.8?, bradycardia rate of 52, blood pressure 121/58, respirations of 14 on compromised with a room air saturation 98%. An EKG was obtained demonstrating sinus rhythm with ventricular rate of 67 with right bundle-branch block and revealed no ST or T-wave changes. The patient has been on Eliquis and had a fall approximately 1 week previous therefore head CT was obtained which demonstrates no acute intracranial pathology. On laboratory analysis she has a normal white count at 6.7 with a hemoglobin of 12.1 and hematocrit 35.4 and platelets of 307. Her electrolytes are within normal limits how ever she has a BUN of 17 and creatinine of 1.8 which is her baseline renal function. She has an EGFR of 27.3. Her glucose is 238. She had hemoglobin A1c reported on 03/10/2019 which was 8.7 consistent with a current reading. Her troponin was negative at less than 0.012. A trial ambulation in the ED found the patient was still unsteady with a 2 person assist and a walker. The patient is admitted to the hospital as she cannot return to her current care setting without assistance as she is high risk for fall while on Eliquis. Discharge Providers Date of admission: 04/07/19 01:54 Discharge Date: 04/08/19 Primary care physician: Danielle Rodriguez MD Consults: 04/07/19 02:32 Consult to Dietitian, Adult Routine Comment: Reason For Exam: Obesity 04/07/19 02:33 Consult to Discharge Planning Routine Comment: Consult to Physical Therapy Evaluate & Treat Comment: acute vertigo, disequilibrium, fall Physician Instructions: Evaluate and Treat Discharge provider: Lady Chapa MD Summary Discharge Diagnosis: 1. Dizziness, present on admission, most likely related to medication 2. Hypertension, chronic 3. Chronic kidney disease stage 4, chronic 4. History of pulmonary embolus on Eliquis 5. Posttraumatic stress disorder 6. Hyperlipidemia 7. Type 2 diabetes 8. Depression 9. Morbid obesity 10. COPD 11. Diabetic Neuropathy Hospital Course: The patient is a 78-year-old female with a history of chronic kidney disease, hypertension, hyperlipidemia, type 2 diabetes who was brought into the hospital because of sudden onset of dizziness. The patient states she was standing at her sink when she was unable to stay upright because of dizziness. She had previously been hospitalized. During that prior hospit alization she was placed on Seroquel 50 b.i.d.. While at the [facility] her Seroquel was increased to 50 t.i.d.. The patient had her Seroquel decreased to 50 at HS. She underwent a head CT which was negative. She had an MRI of her brain which was negative for an acute stroke. The following day the patient was seen by PT and OT. She was able to ambulate independently. Her dizziness completely resolved. I discussed her care with Megan VILLATORO at [facility] who concurred with the plan for her to return to [facility]. We decreased her Zoloft to 25 at HS. She will continue on Seroquel at 50 HS. They will adjust the medications further at [facility]. Patient was deemed appropriate for discharge and arrangements were made for her to be discharged today. Exam Vital Signs (past 8 hours): - 04/08/19 04:15 04/08/19 07:00 04/08/19 10:30 Temperature 98.6 F 98.2 F Pulse Rate 55 L 75 Respiratory Rate 15 Blood Pressure 146/62 H 164/66 H Pulse Oximetry 96 94 94 Oxygen Delivery Method Room Air Oxygen Flow Rate 0 Narrative Exam Narrative: Pleasant female sitting in a chair in no obvious distress Lungs: Decreased breath with scattered rhonchi Cardiac exam: Regular rate and rhythm normal S1-S2 with a 2/6 systolic ejection murmur Abdomen: Soft and nontender Extremities: Trace edema Objective Labs Result Diagrams: 04/06/19 23:55 04/08/19 04:54 Labs: Laboratory Results - last 24 hr 04/08/19 04:54 Sodium 141 Potassium 4.1 Chloride 104 Carbon Dioxide 31 BUN 14 Creatinine 1.70 H Estimated GFR 29.1 L BUN/Creatinine Ratio 8.2 Glucose 138 H D Calcium 9.9 Discharge Plan Discharge Plan Patient Disposition: Assisted Living Other facility: [facility] Transportation: [facility] I certify the postop hospital fdc care is medically necessary on a continuing basis for any conditions for which he/ she received care during this hospitalization.: Yes The receiving facility has agreed to accept transfer and provide medical treatment.: Yes Discharge Med Rec/Prescriptions Prescriptions: New quetiapine 25 mg Tablet 50 mg PO BEDTIME Qty: 30 RF: 0 sertraline 25 mg Tablet 25 mg PO BEDTIME 30 Days RF: 0 Continued lamotrigine [Lamictal] 100 MG tablet 300 mg PO DAILY Qty: 0 RF: 0 Flovent Diskus 100 MCG blister with device 100 mcg INH BIDP PRN (Reason: asthma) Qty: 0 RF: 0 docusate sodium 100 MG capsule 200 mg PO QDAYP PRN (Reason: Constipation) Qty: 0 RF: 0 atorvastatin 40 MG tablet 40 mg PO DAILY Qty: 0 RF: 0 furosemide [Lasix] 40 mg Tablet 40 mg PO DAILY RF: 0 ascorbic acid (vitamin C) [Vitamin C] 500 mg Tablet 500 mg PO DAILY RF: 0 latanoprost 0.005 % Drops 1 drp EYE-RIGHT DAILY RF: 0 erythromycin 5 mg/gram (0.5 %) Ointment 0.5 inch EYE-LEFT DAILY RF: 0 ammonium lactate 12 % Lotion 1 applic TOPICAL BID Qty: 0 RF: 0 glipizide 10 mg Tablet 10 mg PO BID RF: 0 Eucerin Original Lotion 1 applic TOPICAL BID RF: 0 cholecalciferol (vitamin D3) [Vitamin D3] 1,000 unit Tablet 1,000 unit PO DAILY RF: 0 acetaminophen 325 mg Tablet 650 mg PO Q6H PRN (Reason: Pain (Scale Score 1-3)) RF: 0 guaifenesin [Cough Syrup] 100 mg/5 mL Liquid 10 ml PO Q4H PRN (Reason: Cough) RF: 0 lorazepam [Ativan] 1 mg Tablet 1 mg PO Q4HR PRN (Reason: behaviours) RF: 0 albuterol sulfate [ProAir HFA] 90 mcg/actuation Hfa Aerosol Inhaler 2 puff INHALATION Q4H PRN (Reason: asthma) RF: 0 loratadine [Claritin] 10 mg Tablet 10 mg PO DAILY PRN (Reason: Allergy Symptoms) RF: 0 Lantus Solostar U-100 Insulin 100 unit/mL (3 mL) Insulin Pen 10 unit SUBCUT BID RF: 0 nystatin 100,000 unit/gram Powder 1 applic TOPICAL TID PRN (Reason: Skin Irritation) RF: 0 tramadol 50 mg Tablet 100 mg PO BID Qty: 30 RF: 0 calcium carbonate [Tums] 200 mg calcium (500 mg) Tablet,Chewable 1 - 2 tab PO Q4H PRN (Reason: Nausea) RF: 0 multivitamin with minerals Tablet 1 tab PO DAILY RF: 0 Humalog KwikPen Insulin 100 unit/mL Insulin Pen 1 dose subcut TID RF: 0 Eliquis 2.5 mg Tablet 2.5 mg PO BID RF: 0 lidocaine 4 % Adhesive Patch,Medicated 1 patch TOPICAL DAILY RF: 0 gabapentin 300 mg Capsule 300 mg PO BID RF: 0 Discontinued sertraline [Zoloft] 50 mg Tablet 50 mg PO BEDTIME Qty: 30 RF: 0 trazodone 50 mg Tablet 50 mg PO BEDTIME PRN (Reason: Sleep) RF: 0 quetiapine 50 mg Tablet 50 mg PO TID RF: 0 Follow up/Referrals: Danielle Rodriguez MD [Primary Care Provider] - Discharge Orders: Discharge (Order); Ordered 04/08/19 Ordered By: Lady Chapa Provider Discharge Instructions Diet: Low-fat, Low-sodium and Low-cholesterol Liquid consistency: Normal/Thin Food texture: Regular Skin/Wound/Dressing Care Report to your healthcare provider any signs of infection, such as:: chills, fever and night sweats Discharge Data Primary Care Provider: Danielle Rodriguez Attending Provider: Dayton Ocampo Admsusan Date/Time: 04/07/19 01:54
--- NOTE | 2019-04-08 13:36 | DIET.PN ---
RD consult for obesity Ht: 157cm Wt 118.5kg BMI 47.8 (Class III obesity) Pt in ICU for vertigo, lives at [facility], is visually impaired, could not read hospital menu when prompted, all nourishment provided by LT center. Pt has poor dentation, difficulty chewing, and CKD 4. Care center provides chicken and occ ground meat as a protein, with vegetables and starch. Pt dislikes eggs, cannot chew most meats, limited in beans/legumes due to CKD4. Plan: Communicate importance of carbohydrate controlled diet for pt to [facility] in Discharge Plan as reduced PRO choices often substituted to starches/carbs to fill resident plate.
--- NOTE | 2019-04-08 15:40 | PC.NURSE ---
1520 - Pt resistant to having IV removed. Requesting MD to remove catheter. RN Sophie able to have staff, Pradip, at [facility] assist with explaining to pt need for removal prior to discharge. Kylah TAYLOR able to remove IV following Pt phone conversation. Pt then got up ambulated out of her room and stated that she was leaving. Encourage pt to return to her room and await transportation. Pt mildly agitated but agreeable. 1540 - [facility] transport arrived. Pt moved over to refused to use walker, shoving it away. Unsteady transfer. Pt belongings bag and discharge information provided to transport.
== END 2019-04-08 15:40 ==
LOC: ED 04-07 01:51 → AC 04-07 01:55 → ICU 04-07 03:19
PROVIDERS: Internal Medicine; Admitting Provider Nurse Practitioner Adult Health; Emergency Provider Emergency Medicine; PCP Internal Medicine; Visit Provider Nurse Practitioner Adult Health
DX: R42 Dizziness and giddiness (principal); I87.2 Venous insufficiency (chronic) (peripheral); N18.4 Chronic kidney disease, stage 4 (severe); E11.42 Type 2 diabetes mellitus with diabetic polyneuropathy; Z79.4 Long term (current) use of insulin; Z86.73 Personal history of transient ischemic attack (TIA), and cerebral infarction without residual deficits; Z86.711 Personal history of pulmonary embolism; Z79.01 Long term (current) use of anticoagulants; F32.9 Major depressive disorder, single episode, unspecified; G89.4 Chronic pain syndrome; F43.10 Post-traumatic stress disorder, unspecified; J44.9 Chronic obstructive pulmonary disease, unspecified; I12.9 Hypertensive chronic kidney disease with stage 1 through stage 4 chronic kidney disease, or unspecified chronic kidney disease
CPT/HCPCS: 36415; 36591; 70450; 70551; 80048; 80305; 81001; 82962; 84145; 84484; 85025; 87077; 87086; 87797; 93005; 96360; 96361; 96372; 97116; 97162; 97530; 99282; 99285; G0378

== ENCOUNTER → 2019-04-09 07:03 | Outpatient (ROUT) | payer MEDICARE, MEDICAID, SELFPAY ==
[2019-04-07 03:40] VITALS: BMI 49.0
[2019-04-09 08:47] LABS: BUN Creatinine Ratio 9.4 (6-22); Blood Urea Nitrogen 17 mg/dL (7-17); Carbon Dioxide 33 mmol/L (22-32); Chloride 101 mmol/L (98-107); Estimated Glomerular Filt Rate 27.3 mL/min (>60); Glucose 157 mg/dL (80-110); HEMOLYSIS < 15 (0-50); Potassium 4.1 mmol/L (3.4-5.1); Sodium 140 mmol/L (137-145)
== END ==
PROVIDERS: PCP Internal Medicine; Visit Provider Internal Medicine
DX: I12.9 Hypertensive chronic kidney disease with stage 1 through stage 4 chronic kidney disease, or unspecified chronic kidney disease (principal); N18.9 Chronic kidney disease, unspecified
CPT/HCPCS: 36415; 80048

== ENCOUNTER → 2019-05-04 14:16 | Outpatient (ROUT) | payer MEDICARE, MEDICAID, SELFPAY ==
[2019-04-07 03:40] VITALS: BMI 49.0
[2019-05-04 14:33] LABS: Appearance Urine UA CLOUDY; Bilirubin Urine UA NEGATIVE (NEGATIVE); Color Urine UA YELLOW; Glucose Urine UA 1+ g/dL (Negative); Ketones Urine UA NEGATIVE (NEGATIVE); Leukocyte Esterase Urine UA 2+ (NEGATIVE); Nitrite Urine UA NEGATIVE (Negative); Occult Blood Urine UA 3+ (Negative); Protein Urine UA 1+ (Negative); Urobilinogen Urine UA 0.2 E.U./dL (0.2)
[2019-05-04 14:42] LABS: Bacteria Urine Few (2-10); Culture Indicated Urine Specimen Cultured; RBC Urine 10-30/HPF (0-5/HPF); Squamous Epithelial Cell Urine 1-5 /HPF (0-5/HPF); Transitional Epi Cells Urine 5-10/HPF (0-5/HPF); WBC Urine >100/HPF (0-5/HPF)
== END ==
PROVIDERS: PCP Internal Medicine; Visit Provider Internal Medicine
DX: R30.0 Dysuria (principal); R35.0 Frequency of micturition
CPT/HCPCS: 81001; 87086

== ENCOUNTER → 2019-05-28 14:47 | Outpatient (CLI) | payer MEDICARE, MEDICAID, SELFPAY ==
[2019-04-07 03:40] VITALS: BMI 49.0
--- NOTE | 2019-05-28 | DI.US.S_ITS ---
PROCEDURE: US RENAL COMPLETE INDICATIONS: PELVIC DISCOMFORT/DISTENSION TECHNIQUE: Real-time scanning was performed of the kidneys and bladder, with image documentation. COMPARISON: None. FINDINGS: Kidneys: Kidneys are normal in size. Right kidney measures 10 cm long; left kidney measures 9.3 cm long. Right renal cortical thickness is 0.8 cm; left renal cortical thickness is 1.0 cm. Renal cortical echotexture is normal. No hydronephrosis or nephrolithiasis. No suspicious solid mass lesions. Bladder: Pre-void bladder volume is 64 mL. Post-void residual is not obtained. Pre-void images demonstrate no intraluminal masses or stones. On pre-void images, neither ureteral jets are noted with color Doppler interrogation. (Of note, ureteral jets may not be detectable in up to 25% of cases due to insufficient differences in specific gravity between ureteral and bladder urine). Miscellaneous: No free pelvic fluid. Tubular shaped, a thick walled cystic structure present within the right lower quadrant anterior soft tissues. Doppler assessment demonstrates mild wall vascularity. IMPRESSION: 1. Bilateral renal cortical thinning. 2. Tubular shape cystic mass within the right lower quadrant anterior soft tissues of indeterminate etiology. If indicated, sonographic directed aspiration could be performed. Dictated by: Eliceo MURGUIA Interpreted: Terrence Sanches MD on 05/28/2019 at 15:56 Approved by: Terrence Sanches M.D. on 05/28/2019 at 20:16
== END ==
PROVIDERS: PCP Internal Medicine; Visit Provider Internal Medicine
DX: R19.00 Intra-abdominal and pelvic swelling, mass and lump, unspecified site (principal); R10.2 Pelvic and perineal pain
CPT/HCPCS: 76770

== ENCOUNTER → 2019-06-02 08:00 | Outpatient (ROUT) | payer MEDICARE, MEDICAID, SELFPAY ==
[2019-04-07 03:40] VITALS: BMI 49.0
[2019-06-02 08:52] LABS: Hemoglobin A1C% w Est Avg Glu 8.5 % (4.0-6.0)
[2019-06-02 09:10] LABS: Blood Urea Nitrogen 18 mg/dL (7-17); Carbon Dioxide 32 mmol/L (22-32); Chloride 102 mmol/L (98-107); Estimated Glomerular Filt Rate 27.3 mL/min (>60); Glucose 172 mg/dL (80-110); HEMOLYSIS < 15 (0-50); Potassium 3.9 mmol/L (3.4-5.1); Sodium 141 mmol/L (137-145)
== END ==
PROVIDERS: PCP Internal Medicine; Visit Provider Internal Medicine
DX: N19 Unspecified kidney failure (principal); E11.9 Type 2 diabetes mellitus without complications
CPT/HCPCS: 36415; 80048; 83036

== ENCOUNTER → 2019-06-09 11:15 | Outpatient (CLI) | payer MEDICARE, MEDICAID, SELFPAY ==
[2019-04-07 03:40] VITALS: BMI 49.0
--- NOTE | 2019-06-09 | DI.CT.S_ITS ---
PROCEDURE: CT ABDOMEN PELVIS WO CON INDICATIONS: Other intra-abdominal and pelvic swelling, mass TECHNIQUE: Noncontrast 5 mm thick sections acquired from the diaphragms to the symphysis. 5 mm coronal and sagittal reformats were then performed. For radiation dose reduction, the following was used: automated exposure control, adjustment of mA and/or kV according to patient size. COMPARISON: [facility], CT, KIDNEY/ URETER/BLADDER, 08/04/2012, 16:57. FINDINGS: Image quality: Excellent. ABDOMEN: Lung bases: Lung bases are clear. Heart size is normal. Solid organs: Liver is normal in size. Gallbladder contains layering multiple calcifications, each of a size that easily contrasted into the cystic duct or common duct. However no biliary distention is currently found. No pancreatitis is identified. Pancreas is normal in contours. Spleen is normal in size. No adrenal nodules. Kidneys are proportionately small in size compared to the large size of the patient, without definite hydronephrosis but with bilateral nephrolithiasis comprised of variable size stones the largest of which is located within the central renal pelvis of the right kidney measuring up to 0.9-1.0 cm. Calculi elsewhere range in size from 3 mm to 6 mm. No ureteral stone is found and currently no definite obstruction is suspected.. Peritoneum and bowel: Unenhanced bowel loops demonstrate normal wall thickness and caliber. No free fluid or air. Nodes and vessels: No retroperitoneal or mesenteric adenopathy by size criteria. Aorta and inferior vena cava are normal in caliber. Miscellaneous: No ventral hernias. PELVIS: Genitourinary: Bladder wall thickness is normal. Miscellaneous: No inguinal hernias or adenopathy. A prior ventral hernia over the pelvis appears to have been repaired, and a chronic postoperative fluid collection that is oval and measures up to 8.8 x 3.8 cm is again seen. No adjacent inflammation is associated. Bones: No suspicious bony lesions. No vertebral body compression fractures. IMPRESSION: 1. There is a large number of small stones layering along the posterior border of the gallbladder, each of which is of a size that easily good transit into the cystic duct or common bile duct. Please correlate clinically for whether surgical consultation related to this finding is warranted. 2. Multiple nonobstructive calculi are found within the collecting system of the kidneys bilaterally, the largest calculus being up to 9-10 mm in diameter within the renal pelvis of the right kidney, not currently obstructed. 3. Prior pelvic body wall hernia repair, with a postoperative fluid collection persisting over multiple years from 2012 of the current study. As noted, no adjacent inflammation is seen that would indicate infection within this fluid. Dictated by: Terrence Sanches M.D. on 06/09/2019 at 15:26 Approved by: Terrence Sanches M.D. on 06/09/2019 at 15:33
== END ==
PROVIDERS: PCP Internal Medicine; Visit Provider Internal Medicine
DX: R19.09 Other intra-abdominal and pelvic swelling, mass and lump (principal); K80.20 Calculus of gallbladder without cholecystitis without obstruction; N20.0 Calculus of kidney; T81.89XS Other complications of procedures, not elsewhere classified, sequela
CPT/HCPCS: 74176

== ENCOUNTER → 2019-06-17 10:04 | Outpatient (CLI) | payer MEDICARE, MEDICAID, SELFPAY ==
[2019-04-07 03:40] VITALS: BMI 49.0
--- NOTE | 2019-06-17 | DI.US.S_ITS ---
PROCEDURE: US ARTERIAL DUPLEX LE BI INDICATIONS: PERIPHERAL VASCULAR DISEASE TECHNIQUE: Color and pulse Doppler interrogation was performed of both lower extremity arterial systems, with image documentation. COMPARISON: [facility], CT, CT ABDOMEN PELVIS WO CON, 06/09/2019, 11:22. FINDINGS: Right lower extremity: Common femoral artery: 142 cm/sec, with triphasic flow. Deep femoral artery: 75 cm/sec, with a triphasic flow. Proximal superficial femoral artery: The 129 cm/sec, with triphasic flow. Mid superficial femoral artery: 104 cm/sec, with triphasic flow. Distal superficial femoral artery: 93 cm/sec, with a triphasic flow. Popliteal artery: 79-55 cm/sec, with triphasic flow. Posterior tibial artery: Ranging from 81-155 cm/sec, with triphasic flow. Anterior tibial artery/dorsalis pedis: Ranging from 68-153 cm/sec, with triphasic flow. Vann-scale imaging description: Mild calcific and soft plaque Left lower extremity: Common femoral artery: 120 cm/sec, with triphasic flow. Deep femoral artery: 59 cm/sec, with triphasic flow. Proximal superficial femoral artery: 129 cm/sec, with triphasic flow. Mid superficial femoral artery: 146 cm/sec, with triphasic flow. Distal superficial femoral artery: The 118 cm/sec, with triphasic flow. Popliteal artery: Ranging from 65-106 cm/sec, with triphasic flow. Posterior tibial artery: Ranging from 51-140 cm/sec, with triphasic flow. Anterior tibial artery/dorsalis pedis: Ranging from 83-157 cm/sec, with triphasic flow. The dorsalis pedis artery has elevated flow velocity of 226 cm/s Vann-scale imaging description: Mild calcific and soft plaque IMPRESSION: Focal elevated flow velocities maintaining triphasic flow indicating mild to moderate focal stenosis right posterior tibial artery at the middle third and anterior tibial artery at the distal third. Focal elevated flow velocities also maintaining triphasic flow at the left distal anterior tibial artery and at the dorsalis pedis artery, indicating mild to moderate focal stenosis in these areas. No high-grade stenosis is found.. Dictated by: Terrence Sanches M.D. on 06/17/2019 at 14:57 Approved by: Terrence Sanches M.D. on 06/17/2019 at 15:06
== END ==
PROVIDERS: PCP Internal Medicine; Visit Provider Registered Nurse
DX: I70.203 Unspecified atherosclerosis of native arteries of extremities, bilateral legs (principal)
CPT/HCPCS: 93925

== ENCOUNTER → 2019-06-25 18:51 | Outpatient (ROUT) | payer MEDICARE, MEDICAID, SELFPAY ==
[2019-04-07 03:40] VITALS: BMI 49.0
[2019-06-25 19:27] LABS: Appearance Urine UA SL CLOUDY; Bilirubin Urine UA NEGATIVE (NEGATIVE); Color Urine UA YELLOW; Glucose Urine UA 1+ g/dL (Negative); Ketones Urine UA NEGATIVE (NEGATIVE); Leukocyte Esterase Urine UA 2+ (NEGATIVE); Nitrite Urine UA NEGATIVE (Negative); Occult Blood Urine UA 3+ (Negative); Protein Urine UA TRACE (Negative); Specific Gravity Urine UA 1.015 (1.000-1.035); Urobilinogen Urine UA 0.2 E.U./dL (0.2)
[2019-06-25 19:41] LABS: RBC Urine 1-5/HPF (0-5/HPF)
[2019-06-25 19:42] LABS: Amorphous Sediment Urine 1+; Bacteria Urine Few (2-10); Culture Indicated Urine Specimen Cultured; Mucus Urine 1+ (Negative); Squamous Epithelial Cell Urine 0-1 /HPF (0-5/HPF); WBC Urine 30-100/HPF (0-5/HPF)
== END ==
PROVIDERS: PCP Internal Medicine; Visit Provider Nurse Practitioner Family
DX: R30.0 Dysuria (principal)
CPT/HCPCS: 81001; 87086

== ENCOUNTER → 2019-07-07 07:36 | Outpatient (ROUT) | payer MEDICARE, MEDICAID, SELFPAY ==
[2019-04-07 03:40] VITALS: BMI 49.0
[2019-07-07 08:16] LABS: Add Manual Diff / Slide Review NO; Basophils Absolute Auto 100 /uL (0-100); Basophils Percent Auto 0.9 % (0-2); Eosinophils Absolute Auto 300 /uL (0-450); Eosinophils Percent Auto 3.9 % (2-4); Hematocrit 38.2 % (36-46); Hemoglobin 13.3 g/dL (12.0-16.0); Lymphocytes Absolute Auto 2200 /uL (1100-4500); Lymphocytes Percent Auto 29.2 % (25-40); Mean Corpuscular HGB Conc 34.9 % (30-36); Mean Corpuscular Hemoglobin 31.2 PG (26-34); Mean Corpuscular Volume 89.4 fL (80-100); Monocytes Absolute Auto 600 /uL (0-900); Monocytes Percent Auto 7.6 % (3-14); Neutrophils Absolute Auto 4400 /uL (1500-7000); Neutrophils Percent Auto 58.4 % (50-75); Platelet Count 193 X10^3/uL (150-400); Red Blood Cell Count 4.27 X10^6/uL (4.0-5.2); Red Cell Distribution Width 14.3 % (11.6-14.8); White Blood Cell Count 7.6 X10^3/uL (4.5-11.0)
[2019-07-07 08:23] LABS: Alanine Aminotransferase 19 IU/L (9-52); Albumin 3.6 g/dL (3.5-5.0); Albumin Globulin Ratio 1.3 (1.0-2.8); Alkaline Phosphatase 104 U/L (38-126); Aspartate Aminotransferase 20 IU/L (14-36); Bilirubin Total 0.6 mg/dL (0.2-1.3); Blood Urea Nitrogen 19 mg/dL (7-17); Carbon Dioxide 30 mmol/L (22-32); Chloride 102 mmol/L (98-107); Estimated Glomerular Filt Rate 25.6 mL/min (>60); Globulin 2.8 g/dL (1.7-4.1); Glucose 188 mg/dL (80-110); HEMOLYSIS 18 (0-50); Potassium 3.9 mmol/L (3.4-5.1); Sodium 141 mmol/L (137-145); Total Protein 6.4 g/dL (6.3-8.2)
== END ==
PROVIDERS: PCP Internal Medicine; Visit Provider Internal Medicine
DX: E11.9 Type 2 diabetes mellitus without complications (principal)
CPT/HCPCS: 36415; 80053; 85025

== ENCOUNTER → 2019-07-11 17:05 | Outpatient (ROUT) | payer MEDICARE, MEDICAID, SELFPAY ==
[2019-04-07 03:40] VITALS: BMI 49.0
[2019-07-11 17:10] LABS: RBC Urine None Seen (0-5/HPF)
[2019-07-11 19:09] LABS: Bilirubin Urine UA NEGATIVE (NEGATIVE); Color Urine UA YELLOW; Glucose Urine UA 1+ g/dL (Negative); Ketones Urine UA NEGATIVE (NEGATIVE); Leukocyte Esterase Urine UA 2+ (NEGATIVE); Nitrite Urine UA POSITIVE (Negative); Occult Blood Urine UA 2+ (Negative); Protein Urine UA TRACE (Negative)
[2019-07-11 19:22] LABS: Appearance Urine UA CLOUDY
[2019-07-11 19:40] LABS: Bacteria Urine Moderate (10-30); Squamous Epithelial Cell Urine 1-5 /HPF (0-5/HPF); WBC Urine 10-30/HPF (0-5/HPF)
[2019-07-11 19:41] LABS: Culture Indicated Urine Specimen Cultured
== END ==
PROVIDERS: PCP Internal Medicine; Visit Provider Internal Medicine
DX: R30.0 Dysuria (principal); N39.0 Urinary tract infection, site not specified
CPT/HCPCS: 81001; 87077; 87086

== ENCOUNTER 2019-07-21 02:15 | Emergency (ER) | payer MEDICARE, MEDICAID, SELFPAY ==
[2019-04-07 03:40] VITALS: BMI 49.0
[2019-07-21 02:22] VITALS: BP 127/83; PULSE 62; RESP 14; TEMP 36.2; O2SAT 96
[2019-07-21 02:42] LABS: Add Manual Diff / Slide Review NO; Basophils Absolute Auto 100 /uL (0-100); Basophils Percent Auto 0.8 % (0-2); Eosinophils Absolute Auto 700 /uL (0-450); Eosinophils Percent Auto 8.7 % (2-4); Hematocrit 38.1 % (36-46); Hemoglobin 13.1 g/dL (12.0-16.0); Lymphocytes Absolute Auto 2500 /uL (1100-4500); Lymphocytes Percent Auto 30.3 % (25-40); Mean Corpuscular HGB Conc 34.5 % (30-36); Mean Corpuscular Hemoglobin 30.8 PG (26-34); Mean Corpuscular Volume 89.4 fL (80-100); Monocytes Absolute Auto 500 /uL (0-900); Monocytes Percent Auto 6.6 % (3-14); Neutrophils Absolute Auto 4400 /uL (1500-7000); Neutrophils Percent Auto 53.6 % (50-75); Platelet Count 288 X10^3/uL (150-400); Red Blood Cell Count 4.27 X10^6/uL (4.0-5.2); Red Cell Distribution Width 14.4 % (11.6-14.8); White Blood Cell Count 8.3 X10^3/uL (4.5-11.0)
[2019-07-21 02:48] LABS: Alanine Aminotransferase 17 IU/L (9-52); Albumin 3.9 g/dL (3.5-5.0); Albumin Globulin Ratio 1.2 (1.0-2.8); Alkaline Phosphatase 152 U/L (38-126); Aspartate Aminotransferase 18 IU/L (14-36); BUN Creatinine Ratio 11.7 (6-22); Bilirubin Total 0.4 mg/dL (0.2-1.3); Blood Urea Nitrogen 27 mg/dL (7-17); Calcium 10.3 mg/dL (8.4-10.2); Carbon Dioxide 34 mmol/L (22-32); Chloride 94 mmol/L (98-107); Estimated Glomerular Filt Rate 20.5 mL/min (>60); Globulin 3.3 g/dL (1.7-4.1); Glucose 287 mg/dL (80-110); HEMOLYSIS < 15 (0-50); Potassium 3.5 mmol/L (3.4-5.1); Sodium 137 mmol/L (137-145); Total Protein 7.2 g/dL (6.3-8.2)
--- NOTE | 2019-07-21 03:02 | ED_ITS ---
HPI - Dizziness General Chief Complaint: Dizziness Stated Complaint: Dizzy Time Seen by Provider: 07/21/19 02:17 Source: patient Mode of arrival: ambulatory Limitations: no limitations History of Present Illness HPI Narrative: Patient comes emergency department complaining of dizziness. Staff found her to complaint of lightheadedness, so they sent her to the emergency department. Patient denies chest pain or shortness of breath. No nausea vomiting. No diarrhea. No fevers or chills. No dysuria. No focal de ficits. No visual changes. No other complaints at this time. Related Data Home Medications Medication Instructions Recorded Confirmed Flovent Diskus 100 mcg INH BIDP PRN #0 09/08/16 04/07/19 lamotrigine [Lamictal] 300 mg PO DAILY #0 09/08/16 04/07/19 docusate sodium 200 mg PO QDAYP PRN #0 07/10/17 04/07/19 atorvastatin 40 mg PO DAILY #0 01/18/18 04/07/19 ascorbic acid (vitamin C) [Vitamin 500 mg PO DAILY 04/01/18 04/07/19 C] furosemide [Lasix] 40 mg PO DAILY 04/01/18 04/07/19 erythromycin 0.5 inch EYE-LEFT DAILY 08/08/18 04/07/19 latanoprost 1 drp EYE-RIGHT DAILY 08/08/18 04/07/19 Eucerin Original 1 applic TOPICAL BID 08/13/18 04/07/19 ammonium lactate 1 applic TOPICAL BID #0 08/13/18 03/28/19 cholecalciferol (vitamin D3) 1,000 unit PO DAILY 08/13/18 04/07/19 [Vitamin D3] glipizide 10 mg PO BID 08/13/18 04/07/19 Lantus Solostar U-100 Insulin 10 unit SUBCUT BID 03/07/19 04/07/19 acetaminophen 650 mg PO Q6H PRN 03/07/19 04/07/19 albuterol sulfate [ProAir HFA] 2 puff INHALATION Q4H PRN 03/07/19 04/07/19 guaifenesin [Cough Syrup] 10 ml PO Q4H PRN 03/07/19 04/07/19 loratadine [Claritin] 10 mg PO DAILY PRN 03/07/19 04/07/19 lorazepam [Ativan] 1 mg PO Q4HR PRN 03/07/19 04/07/19 nystatin 1 applic TOPICAL TID PRN 03/08/19 03/28/19 Eliquis 2.5 mg PO BID 03/24/19 04/07/19 Humalog KwikPen Insulin 1 dose SUBCUT TID 03/24/19 04/07/19 calcium carbonate [Tums] 1 - 2 tab PO Q4H PRN 03/24/19 04/07/19 multivitamin with minerals 1 tab PO DAILY 03/24/19 03/28/19 gabapentin 300 mg PO BID 03/28/19 04/07/19 lidocaine 1 patch TOPICAL DAILY 03/28/19 04/07/19 Previous Rx's Medication Instructions Recorded tramadol 100 mg PO BID #30 tab 03/09/19 quetiapine 50 mg PO BEDTIME #30 tab 04/08/19 Allergies Allergy/AdvReac Type Severity Reaction Status Date / Time Iodine and Iodide Containing Allergy Intermediate i get Verified 03/24/19 13:55 Produc spots all [IODINE AND IODIDE over my CONTAINING PRODUC] body Penicillins [PENICILLINS] Allergy Intermediate makes my Verified 03/24/19 13:55 bones and joints ache aspirin [ASPIRIN] Allergy Unknown Verified 03/24/19 13:55 meclizine [MECLIZINE] Allergy Unknown Verified 03/24/19 13:55 codeine [CODEINE] AdvReac Unknown gives me Verified 03/24/19 13:55 bloody nightmares potassium [POTASSIUM] AdvReac Unknown Verified 03/24/19 13:55 Review of Systems Review of Systems ROS Unobtainable: All systems reviewed & are unremarkable except as noted in HPI and below Constitutional Constitutional: Denies chills, Denies fatigue, Denies fever(s), Denies frequent falls, Denies lethargy and Denies weakness Comments: Lightheadedness Eyes Eyes: Denies change in vision, Denies eye discharge, Denies irritation and Denies loss of vision ENT Ears, Nose, Mouth, and Throat: Denies change in voice, Denies dizziness, Denies neck pain, Denies sore throat and Denies throat swelling Cardiovascular Cardiovascular: Denies chest pain, Denies irregular heart rhythm, Reports lightheadedness, Denies palpitations, Denies dyspnea, Denies dyspnea on exertion and Denies orthopnea Respiratory Respiratory: Denies cough, Denies dyspnea, Denies dyspnea on exertion and Denies wheezing Gastrointestinal Gastrointestinal: Denies abdominal pain, Denies change in bowel habits, Denies diarrhea, Denies nausea and Denies vomiting Genitourinary Genitourinary: Denies hematuria, Denies flank pain, Denies urinary incontinence and Denies urinary urgency Musculoskeletal Musculoskeletal: Denies back pain, Denies muscle weakness, Denies neck pain, Denies numbness and Denies tingling Integumentary/Breasts Skin/Breast: Denies pruritus, Denies erythema, Denies rash and Denies wounds Neurologic Neurologic: Denies behavioral changes, Denies confusion, Denies dizziness, Denies frequent falls, Denies loss of vision, Denies numbness, Denies tingling and Denies weakness Psychiatric Psychiatric: Denies anxiety, Denies behavioral changes, Denies confusion, Denies depression, Denies homicidal ideation and Denies suicidal ideation Endocrine Endocrine: Denies fatigue, Denies flushing and Denies palpitations Hematologic/Lymphatic Hematologic/Lymphatic: Denies easy bruising Allergic/Immunologic Allergic/Immunologic: Denies urticaria, Denies throat swelling and Denies wheezing [facility] Social History household members: caregiver Smoking Status: Never smoker alcohol intake: former Exam Initial Vital Signs Initial Vital Signs: Vital Signs Temperature 97.1 F L 07/21/19 02:22 Pulse Rate 62 07/21/19 02:22 Respiratory Rate 14 07/21/19 02:22 Blood Pressure 127/83 07/21/19 02:22 Pulse Oximetry 96 07/21/19 02:22 Const General: cooperative and well developed Nutritional Appearance: well nourished Orientation: alert, awake and not confused [facility] Head: normocephalic and atraumatic Ears: external ears normal Nose: external nose normal and No nasal discharge Face and sinus: face symmetric and No dry mucous membranes Mouth: oral mucosae normal and moist mucous membranes Teeth and gingiva: dentition normal Eyes General: appearance normal, both eyes and all related structures Eyelids: eyelids normal Conjunctivae: conjunctivae normal Sclera: sclerae normal Pupils: PERRL EOM: EOM intact bilaterally Neck Neck: normal visual inspection, trachea midline, No lymphadenopathy, No midline deformity and No JVD Lymphatic: No lymphedema Chest Chest: normal inspection of the chest Resp Effort & Inspection: normal respiratory effort, able to speak in complete sentences, no respiratory distress and no use of accessory muscles Auscultation: clear to auscultation bilaterally, no rales, no rhonchi and no wheezes Cardio Rate: regular rate Rhythm: regular rhythm Heart Sounds: no click, no gallops, no murmurs and no rubs Pulses: normal peripheral pulses GI Inspection: non-distended Palpation: soft, no hepatosplenomegaly, No guarding, No pulsatile mass and No tender Auscultation: normal bowel sounds Back/Spine/Pelvis Back: No CVA tenderness Cervical Spine: cervical ROM normal and No pain with cervical ROM Thoracic/Lumbar Spine: thoracic and lumbar spine normal to inspection Skin General: no rashes or lesions noted, No jaundice and No petechiae Neuro General: alert, awake, gait normal and no focal motor deficits Speech: speech normal Extrem General: full ROM, no clubbing, cyanosis or edema, no pedal edema and no calf tenderness Psych Appearance: well kempt Mental Status: mental status grossly normal Attitude: cooperative Thought Content: normal and suicidality Judgment: judgment good Course Course Course Narrative: Patient was given IV fluids in the emergency department and worked up with labs. Patient was found to have an elevation in BUN and creatinine compared to previous levels in recent months, and was also found to have a drop in her GFR from 25-20, which has also been trending down over the course of the summer. Values were repeated after IV fluids and found to be somewhat improved, though not quite back to patient's recent baseline. The patient reported feeling much better, and admitted to not drinking much water. I felt she was stable for discharge, though I have advised her that she needs to drink plenty of fluids, and follow up with her doctor regarding her kidney function. We have discussed home management of symptoms, as well as the usual indications for return. Orders Ordered: Discontinued Medications Sodium Chloride (Normal Saline 0.9%) 1,000 mls @ 1,000 mls/hr IV BOLUS ONE Stop: 07/21/19 03:59 Last Infusion: 07/21/19 05:48 Dose: 0 mls/hr Documented by: Infusion: 07/21/19 03:11 Dose: 500 mls/hr Documented by: Admin: 07/21/19 03:11 Dose: 1,000 mls/hr Documented by: SAIMA Vital Signs Vital signs: Vital Signs - 8 hr 07/21/19 02:22 Temperature 97.1 F L Pulse Rate 62 Respiratory Rate 14 Blood Pressure 127/83 Pulse Oximetry 96 MDM - Dizziness Medical Records Attestation: I reviewed the patient's medical records. Lab Data Attestation: I reviewed the patient's lab results. Result diagrams: 07/21/19 02:27 07/21/19 04:55 Labs: Lab Results 07/21/19 07/21/19 07/21/19 Range/Units 02:27 02:27 04:55 WBC 8.3 (4.5-11.0) X10^3/uL RBC 4.27 (4.0-5.2) X10^6/uL Hgb 13.1 (12.0-16.0) g/dL Hct 38.1 (36-46) % MCV 89.4 (80-100) fL MCH 30.8 (26-34) PG MCHC 34.5 (30-36) % RDW 14.4 (11.6-14.8) % Plt Count 288 (150-400) X10^3/uL Neut % (Auto) 53.6 (50-75) % Lymph % (Auto) 30.3 (25-40) % Edmonson % (Auto) 6.6 (3-14) % Eos % (Auto) 8.7 H (2-4) % Baso % (Auto) 0.8 (0-2) % Neut # (Auto) 4400 (4462-3602) /uL Lymph # (Auto) 2500 (4165-2058) /uL [place] # (Auto) 500 (0-900) /uL Eos # (Auto) 700 H (0-450) /uL Baso # (Auto) 100 (0-100) /uL Sodium 137 138 (137-145) mmol/L Potassium 3.5 3.8 (3.4-5.1) mmol/L Chloride 94 L 97 L (98-107) mmol/L Carbon Dioxide 34 H 33 H (22-32) mmol/L BUN 27 H 27 H (7-17) mg/dL Creatinine 2.30 H 2.10 H (0.52-1.04) mg/dL Estimated GFR 20.5 L 22.8 L (>60) mL/min BUN/Creatinine Ratio 11.7 12.9 (6-22) Glucose 287 H 249 H (80-110) mg/dL Calcium 10.3 H 10.0 (8.4-10.2) mg/dL Total Bilirubin 0.4 (0.2-1.3) mg/dL AST 18 (14-36) IU/L ALT 17 (9-52) IU/L Alkaline Phosphatase 152 H (38-126) U/L Total Protein 7.2 (6.3-8.2) g/dL Albumin 3.9 (3.5-5.0) g/dL Globulin 3.3 (1.7-4.1) g/dL Albumin/Globulin Ratio 1.2 (1.0-2.8) Discharge Plan Departure Patient Disposition: Home Clinical Impression: Dehydration, Dizziness Discharge Date/Time: 07/21/19 07:08 Instructions: DI for Dehydration -- Adult Activity Restrictions/Additional Instructions: Please be sure to drink plenty of water every day. Your labs showed that you had experienced some dehydration, and this was causing a worsening of her kidney function. Your kidney function did improve with IV fluids in the emergency department. It is very important that he be sure to drink 6-8 cups of water every single day to avoid this problem. Prescriptions: No Action lamotrigine [Lamictal] 100 MG tablet 300 mg PO DAILY Qty: 0 RF: 0 Flovent Diskus 100 MCG blister with device 100 mcg INH BIDP PRN (Reason: asthma) Qty: 0 RF: 0 docusate sodium 100 MG capsule 200 mg PO QDAYP PRN (Reason: Constipation) Qty: 0 RF: 0 atorvastatin 40 MG tablet 40 mg PO DAILY Qty: 0 RF: 0 furosemide [Lasix] 40 mg Tablet 40 mg PO DAILY RF: 0 ascorbic acid (vitamin C) [Vitamin C] 500 mg Tablet 500 mg PO DAILY RF: 0 latanoprost 0.005 % Drops 1 drp EYE-RIGHT DAILY RF: 0 erythromycin 5 mg/gram (0.5 %) Ointment 0.5 inch EYE-LEFT DAILY RF: 0 ammonium lactate 12 % Lotion 1 applic TOPICAL BID Qty: 0 RF: 0 glipizide 10 mg Tablet 10 mg PO BID RF: 0 Eucerin Original Lotion 1 applic TOPICAL BID RF: 0 cholecalciferol (vitamin D3) [Vitamin D3] 1,000 unit Tablet 1,000 unit PO DAILY RF: 0 acetaminophen 325 mg Tablet 650 mg PO Q6H PRN (Reason: Pain (Scale Score 1-3)) RF: 0 guaifenesin [Cough Syrup] 100 mg/5 mL Liquid 10 ml PO Q4H PRN (Reason: Cough) RF: 0 lorazepam [Ativan] 1 mg Tablet 1 mg PO Q4HR PRN (Reason: behaviours) RF: 0 albuterol sulfate [ProAir HFA] 90 mcg/actuation Hfa Aerosol Inhaler 2 puff INHALATION Q4H PRN (Reason: asthma) RF: 0 loratadine [Claritin] 10 mg Tablet 10 mg PO DAILY PRN (Reason: Allergy Symptoms) RF: 0 Lantus Solostar U-100 Insulin 100 unit/mL (3 mL) Insulin Pen 10 unit SUBCUT BID RF: 0 nystatin 100,000 unit/gram Powder 1 applic TOPICAL TID PRN (Reason: Skin Irritation) RF: 0 tramadol 50 mg Tablet 100 mg PO BID Qty: 30 RF: 0 calcium carbonate [Tums] 200 mg calcium (500 mg) Tablet,Chewable 1 - 2 tab PO Q4H PRN (Reason: Nausea) RF: 0 multivitamin with minerals Tablet 1 tab PO DAILY RF: 0 Humalog KwikPen Insulin 100 unit/mL Insulin Pen 1 dose subcut TID RF: 0 Eliquis 2.5 mg Tablet 2.5 mg PO BID RF: 0 quetiapine 25 mg Tablet 50 mg PO BEDTIME Qty: 30 RF: 0 lidocaine 4 % Adhesive Patch,Medicated 1 patch TOPICAL DAILY RF: 0 gabapentin 300 mg Capsule 300 mg PO BID RF: 0 Referrals: Danielle Rodriguez MD [Primary Care Provider] -
[2019-07-21] MEDS: SODIUM CHLORIDE 0.9% 1,000 ML 1000 ML IV (03:11)
[2019-07-21 04:00] VITALS: BP 135/50; PULSE 58; RESP 20; O2SAT 94
[2019-07-21 04:42] VITALS: BP 140/60; PULSE 55; RESP 16; O2SAT 97
[2019-07-21 05:15] LABS: BUN Creatinine Ratio 12.9 (6-22); Blood Urea Nitrogen 27 mg/dL (7-17); Carbon Dioxide 33 mmol/L (22-32); Chloride 97 mmol/L (98-107); Estimated Glomerular Filt Rate 22.8 mL/min (>60); Glucose 249 mg/dL (80-110); HEMOLYSIS 16 (0-50); Potassium 3.8 mmol/L (3.4-5.1); Sodium 138 mmol/L (137-145)
[2019-07-21 05:30] VITALS: BP 105/48; PULSE 84; O2SAT 97
[2019-07-21 06:00] VITALS: BP 115/51; PULSE 45; O2SAT 98
--- NOTE | 2019-07-21 06:08 | PC.NURSE ---
patient bein discharged back to [facility]. [facility] called and they are sending their shuttle between [id number] to pick remover the patient. provider aware and no new orders at this time.
--- NOTE | 2019-07-21 06:17 | PC.NURSE ---
CLAUDIA Guerrero from [facility] called and report given. transportation pending and RN will call back with an ETA of transportation. provider aware and no new orders at this time.
[2019-07-21 07:08] VITALS: BP 132/61; PULSE 52; RESP 16; O2SAT 96
== END 2019-07-21 07:08 | disposition home or self-care (01) ==
PROVIDERS: Emergency Provider Emergency Medicine; PCP Internal Medicine
DX: E86.0 Dehydration (principal); R42 Dizziness and giddiness
CPT/HCPCS: 36415; 36591; 80048; 80053; 85025; 93005; 96360; 96361; 99283; 99284

== ENCOUNTER → 2019-07-30 08:07 | Outpatient (ROUT) | payer MEDICARE, MEDICAID, SELFPAY ==
[2019-04-07 03:40] VITALS: BMI 49.0
[2019-07-30 09:05] LABS: Add Manual Diff / Slide Review NO; Basophils Absolute Auto 100 /uL (0-100); Basophils Percent Auto 1.7 % (0-2); Eosinophils Absolute Auto 500 /uL (0-450); Eosinophils Percent Auto 6.1 % (2-4); Hematocrit 33.3 % (36-46); Hemoglobin 11.6 g/dL (12.0-16.0); Lymphocytes Absolute Auto 2300 /uL (1100-4500); Lymphocytes Percent Auto 30.9 % (25-40); Mean Corpuscular HGB Conc 34.7 % (30-36); Mean Corpuscular Hemoglobin 31.3 PG (26-34); Mean Corpuscular Volume 90.3 fL (80-100); Monocytes Absolute Auto 700 /uL (0-900); Monocytes Percent Auto 8.6 % (3-14); Neutrophils Absolute Auto 4000 /uL (1500-7000); Neutrophils Percent Auto 52.7 % (50-75); Platelet Count 222 X10^3/uL (150-400); Red Blood Cell Count 3.69 X10^6/uL (4.0-5.2); Red Cell Distribution Width 14.6 % (11.6-14.8); White Blood Cell Count 7.6 X10^3/uL (4.5-11.0)
[2019-07-30 09:25] LABS: BUN Creatinine Ratio 11.8 (6-22); Blood Urea Nitrogen 26 mg/dL (7-17); Calcium 10.1 mg/dL (8.4-10.2); Carbon Dioxide 33 mmol/L (22-32); Chloride 98 mmol/L (98-107); Estimated Glomerular Filt Rate 21.6 mL/min (>60); Glucose 215 mg/dL (80-110); HEMOLYSIS < 15 (0-50); Potassium 4.1 mmol/L (3.4-5.1); Sodium 139 mmol/L (137-145)
== END ==
PROVIDERS: PCP Internal Medicine; Visit Provider Internal Medicine
DX: D64.9 Anemia, unspecified (principal); N18.9 Chronic kidney disease, unspecified
CPT/HCPCS: 36415; 80048; 85025

== ENCOUNTER → 2019-08-06 07:57 | Outpatient (ROUT) | payer MEDICARE, MEDICAID, SELFPAY ==
[2019-04-07 03:40] VITALS: BMI 49.0
[2019-08-06 09:18] LABS: Add Manual Diff / Slide Review NO; Basophils Absolute Auto 100 /uL (0-100); Basophils Percent Auto 0.9 % (0-2); Eosinophils Absolute Auto 500 /uL (0-450); Eosinophils Percent Auto 7.4 % (2-4); Hematocrit 33.1 % (36-46); Hemoglobin 11.5 g/dL (12.0-16.0); Lymphocytes Absolute Auto 2200 /uL (1100-4500); Lymphocytes Percent Auto 31.1 % (25-40); Mean Corpuscular HGB Conc 34.7 % (30-36); Mean Corpuscular Hemoglobin 31.5 PG (26-34); Mean Corpuscular Volume 90.9 fL (80-100); Monocytes Absolute Auto 600 /uL (0-900); Monocytes Percent Auto 8.1 % (3-14); Neutrophils Absolute Auto 3700 /uL (1500-7000); Neutrophils Percent Auto 52.5 % (50-75); Platelet Count 227 X10^3/uL (150-400); Red Blood Cell Count 3.65 X10^6/uL (4.0-5.2); Red Cell Distribution Width 14.5 % (11.6-14.8); White Blood Cell Count 7.1 X10^3/uL (4.5-11.0)
[2019-08-06 09:19] LABS: BUN Creatinine Ratio 11.1 (6-22); Blood Urea Nitrogen 21 mg/dL (7-17); Calcium 10.2 mg/dL (8.4-10.2); Carbon Dioxide 27 mmol/L (22-32); Chloride 104 mmol/L (98-107); Estimated Glomerular Filt Rate 25.6 mL/min (>60); Glucose 253 mg/dL (80-110); HEMOLYSIS < 15 (0-50); Potassium 4.3 mmol/L (3.4-5.1); Sodium 138 mmol/L (137-145)
== END ==
PROVIDERS: PCP Internal Medicine; Visit Provider Internal Medicine
DX: D64.9 Anemia, unspecified (principal); N18.9 Chronic kidney disease, unspecified
CPT/HCPCS: 36415; 80048; 85025

== ENCOUNTER 2019-09-02 16:48 | Observation (INO) | payer MEDICARE, MEDICAID, SELFPAY ==
[2019-04-07 03:40] VITALS: BMI 49.0
[2019-09-02 17:00] VITALS: BP 165/62; PULSE 76; RESP 18; TEMP 37.1; O2SAT 94
--- NOTE | 2019-09-02 17:43 | ED_ITS ---
HPI - Abdominal Pain General Chief Complaint: Abdominal Pain Stated Complaint: R Flank pain / Cellulitis, edema, lower legs. Time Seen by Provider: 09/02/19 16:55 Source: patient and EMS Mode of arrival: EMS Limitations: no limitations History of Present Illness HPI narrative: Patient comes emergency department via EMS after being evaluated by Dr. Rodriguez at her care facility. Patient has a history of chronic lower extremity edema, but was found to have significantly increased erythema in her bilateral lower extremities by Dr. Rodriguez. Patient states that she has neuropathy so she cannot tell if she has any pain there, and she is blind so she cannot determine whether the redness is new or worse than usual. Patient also complains of right flank pain which has been going on for the last 3 days. Patient has had occasional episodes of the pain before, and does note that it feels like when she had kidney stones in the past. Patient denies any dysuria. She cannot see whether she has any hematuria or not. Patient denies fevers or chills. No diarrhea. No blood in her stools. No other complaints at this time. Related Data Home Medications Medication Instructions Recorded Confirmed Flovent Diskus 100 mcg INH BIDP PRN #0 09/08/16 09/02/19 lamotrigine [Lamictal] 300 mg PO DAILY #0 09/08/16 09/02/19 atorvastatin 40 mg PO BEDTIME #0 01/18/18 09/02/19 erythromycin 0.5 inch EYE-LEFT BEDTIME 08/08/18 09/02/19 latanoprost 1 drp EYE-RIGHT BEDTIME 08/08/18 09/02/19 Eucerin Original 1 applic TOPICAL BID 08/13/18 09/02/19 ammonium lactate 1 applic TOPICAL BID #0 08/13/18 09/02/19 cholecalciferol (vitamin D3) 1,000 unit PO BEDTIME 08/13/18 09/02/19 [Vitamin D3] glipizide 10 mg PO BID 08/13/18 09/02/19 Lantus Solostar U-100 Insulin 26 unit SUBCUT BID 03/07/19 09/02/19 acetaminophen 650 mg PO Q6H PRN 03/07/19 09/02/19 albuterol sulfate [ProAir HFA] 2 puff INHALATION Q4H PRN 03/07/19 09/02/19 lorazepam [Ativan] 1 mg PO Q4HR PRN 03/07/19 09/02/19 nystatin 1 applic TOPICAL TID PRN 03/08/19 09/02/19 Eliquis 2.5 mg PO BID 03/24/19 09/02/19 insulin lispro [Humalog KwikPen 1 dose SUBCUT TID 03/24/19 09/02/19 Insulin] gabapentin 300 mg PO BID 03/28/19 09/02/19 lidocaine 1 patch TOPICAL DAILY 03/28/19 09/02/19 polyethylene glycol 3350 17 g PO DAILY 09/02/19 09/02/19 quetiapine 25 mg PO BEDTIME 09/02/19 09/02/19 quetiapine 50 mg PO BEDTIME 09/02/19 09/02/19 torsemide 20 mg PO DAILY 09/02/19 09/02/19 tramadol 50 mg PO BEDTIME 09/02/19 09/02/19 tramadol 50 mg PO PRN PRN 09/02/19 09/02/19 Allergies Allergy/AdvReac Type Severity Reaction Status Date / Time Iodine and Iodide Containing Allergy Intermediate i get Verified 03/24/19 13:55 Produc spots all [IODINE AND IODIDE over my CONTAINING PRODUC] body Penicillins [PENICILLINS] Allergy Intermediate makes my Verified 03/24/19 13:55 bones and joints ache aspirin [ASPIRIN] Allergy Unknown Verified 03/24/19 13:55 meclizine [MECLIZINE] Allergy Unknown Verified 03/24/19 13:55 codeine [CODEINE] AdvReac Unknown gives me Verified 03/24/19 13:55 bloody nightmares potassium [POTASSIUM] AdvReac Unknown Verified 03/24/19 13:55 Review of Systems Constitutional Constitutional: Denies chills, Denies fatigue, Denies fever(s), Denies frequent falls, Denies lethargy and Denies weakness Eyes Eyes: Denies change in vision, Denies eye discharge, Denies irritation and Denies loss of vision ENT Ears, Nose, Mouth, and Throat: Denies change in voice, Denies dizziness, Denies neck pain, Denies sore throat and Denies throat swelling Cardiovascular Cardiovascular: Denies chest pain, Denies irregular heart rhythm, Denies lightheadedness, Denies palpitations, Denies dyspnea, Denies dyspnea on exertion and Denies orthopnea Respiratory Respiratory: Denies cough, Denies dyspnea, Denies dyspnea on exertion and Denies wheezing Gastrointestinal Gastrointestinal: Reports abdominal pain (Right flank), Denies change in bowel habits, Denies diarrhea, Denies nausea and Denies vomiting Genitourinary Genitourinary: Denies hematuria, Denies flank pain, Denies urinary incontinence and Denies urinary urgency Musculoskeletal Musculoskeletal: Denies back pain, Denies muscle weakness, Denies neck pain, Denies numbness and Denies tingling Integumentary/Breasts Skin/Breast: Denies pruritus, Reports erythema (Bilateral lower extremity), Denies rash and Denies wounds Neurologic Neurologic: Denies behavioral changes, Denies confusion, Denies dizziness, Denies frequent falls, Denies loss of vision, Denies numbness, Denies tingling and Denies weakness Psychiatric Psychiatric: Denies anxiety, Denies behavioral changes, Denies confusion, Denies depression, Denies homicidal ideation and Denies suicidal ideation Endocrine Endocrine: Denies fatigue, Denies flushing and Denies palpitations Hematologic/Lymphatic Hematologic/Lymphatic: Denies easy bruising Allergic/Immunologic Allergic/Immunologic: Denies urticaria, Denies throat swelling and Denies wheezing Patient History Medical History Asthma (Acute) Cataract (Acute) Chronic anticoagulation (Acute) Chronic pain (Acute) CVA (cerebral vascular accident) (Acute) Depression (Acute) Diabetes (Acute) Diabetic neuropathy (Acute) Hypertension (Acute) Lower extremity edema (Acute) Morbid obesity (Acute) PTSD (post-traumatic stress disorder) (Acute) Pulmonary embolism (Acute) Surgical History H/O: hysterectomy (Acute) Hx of appendectomy (Acute) Hx of tonsillectomy (Acute) Hx of total knee arthroplasty (Acute) Family History Mother No known health problems Father Lung cancer Sister Lung cancer Tobacco dependence Social History household members: caregiver Smoking Status: Never smoker alcohol intake: former alcohol intake frequency: 0-2 drinks per day Substance Use Type: does not use Exam Initial Vital Signs Initial Vital Signs: Vital Signs Temperature 98.7 F 09/02/19 17:00 Pulse Rate 76 09/02/19 17:00 Respiratory Rate 18 09/02/19 17:00 Blood Pressure 165/62 H 09/02/19 17:00 Pulse Oximetry 94 09/02/19 17:00 Const General: cooperative and well developed Nutritional Appearance: well nourished Orientation: alert, awake, oriented x3 and not confused [facility] Head: normocephalic and atraumatic Ears: external ears normal Nose: external nose normal and No nasal discharge Face and sinus: face symmetric and No dry mucous membranes Mouth: oral mucosae normal and moist mucous membranes Teeth and gingiva: dentition normal Eyes General: appearance normal, both eyes and all related structures Eyelids: eyelids normal Conjunctivae: conjunctivae normal Sclera: sclerae normal Pupils: PERRL EOM: EOM intact bilaterally Neck Neck: normal visual inspection, trachea midline, No lymphadenopathy, No midline deformity and No JVD Lymphatic: No lymphedema Chest Chest: normal inspection of the chest Resp Effort & Inspection: normal respiratory effort, able to speak in complete sentences, no respiratory distress and no use of accessory muscles Auscultation: clear to auscultation bilaterally, no rales, no rhonchi and no wheezes Cardio Rate: regular rate Rhythm: regular rhythm Heart Sounds: no click, no gallops, no murmurs and no rubs Pulses: normal peripheral pulses GI Inspection: non-distended Palpation: soft, no hepatosplenomegaly, No guarding, No pulsatile mass and tender (Moderate, right flank) Auscultation: normal bowel sounds Back/Spine/Pelvis Back: No CVA tenderness Cervical Spine: cervical ROM normal and No pain with cervical ROM Thoracic/Lumbar Spine: thoracic and lumbar spine normal to inspection Skin General: No jaundice and No petechiae Other: Large area of intense erythema noted bilateral lower legs anteriorly, medially and laterally, extending nearly to the knees on both sides. Changes consistent with chronic venous stasis noted bilateral legs. Neuro General: alert, oriented x3, gait normal and no focal motor deficits Speech: speech normal Extrem General: full ROM and edema (Marked, bilateral lower extremities) Psych Appearance: well kempt Mental Status: mental status grossly normal Attitude: cooperative Thought Content: normal and suicidality Judgment: judgment good Course Course Course Narrative: Patient was worked up with labs, UA and CT KUB. CT did not show any kidney stones. The patient was found have a urinary tract infection and was also started on antibiotics for her cellulitis. I spoke with the hospitalist health care liaison, Dr. Ross, and he did agree to admit the patient to his service. Patient is agreeable to the plan. Orders Ordered: ED Orders 09/02/19 17:07 EKG-12 Lead Stat 09/02/19 17:13 Urine Culture Stat Urine Microscopic Stat 09/02/19 17:41 CT kidney ureter bladder (KUB) Stat 09/02/19 17:51 Complete Blood Count AUTO DIFF Stat Comprehensive Metabolic Panel Stat Lipase Stat Partial Thromboplastin Time Stat Prothrombin Time INR Stat Discontinued Medications Vancomycin HCl (Vancomycin) 1,000 mg in 200 mls @ 200 mls/hr IV NOW ONE Stop: 09/02/19 18:57 Last Infusion: 09/02/19 19:08 Dose: 0 mls/hr Documented by: Admin: 09/02/19 18:10 Dose: 200 mls/hr Documented by: SKIP Vital Signs Vital signs: Vital Signs - 8 hr 09/02/19 17:00 09/02/19 18:16 09/02/19 18:30 Temperature 98.7 F Pulse Rate 76 74 68 Respiratory Rate 18 16 16 Blood Pressure 165/62 H Blood Pressure [Right Arm] 146/55 H 140/57 L Pulse Oximetry 94 93 98 MDM - Abdominal Pain Medical Records Attestation: I reviewed the patient's medical records. Lab Data Attestation: I reviewed the patient's lab results. Result diagrams: 09/02/19 17:51 09/02/19 17:51 Labs: Lab Results 09/02/19 09/02/19 09/02/19 Range/Units 17:13 17:51 17:51 WBC 8.5 (4.5-11.0) X10^3/uL RBC 4.03 (4.0-5.2) X10^6/uL Hgb 12.9 (12.0-16.0) g/dL Hct 37.2 (36-46) % MCV 92.1 (80-100) fL MCH 31.9 (26-34) PG MCHC 34.6 (30-36) % RDW 14.8 (11.6-14.8) % Plt Count 233 (150-400) X10^3/uL Neut % (Auto) 68.2 (50-75) % Lymph % (Auto) 21.2 L (25-40) % Sherman % (Auto) 7.0 (3-14) % Eos % (Auto) 2.8 (2-4) % Baso % (Auto) 0.8 (0-2) % Neut # (Auto) 5800 (7725-3616) /uL Lymph # (Auto) 1800 (2291-8866) /uL Sherman # (Auto) 600 (0-900) /uL Eos # (Auto) 200 (0-450) /uL Baso # (Auto) 100 (0-100) /uL PT 11.9 (10.1-12.7) SECONDS INR 1.0 (0.9-1.3) APTT 36 (26.4-36.2) SECONDS Sodium (137-145) mmol/L Potassium (3.4-5.1) mmol/L Chloride (98-107) mmol/L Carbon Dioxide (22-32) mmol/L BUN (7-17) mg/dL Creatinine (0.52-1.04) mg/dL Estimated GFR (>60) mL/min BUN/Creatinine Ratio (6-22) Glucose (80-110) mg/dL Calcium (8.4-10.2) mg/dL Total Bilirubin (0.2-1.3) mg/dL AST (14-36) IU/L ALT (9-52) IU/L Alkaline Phosphatase (38-126) U/L Total Protein (6.3-8.2) g/dL Albumin (3.5-5.0) g/dL Globulin (1.7-4.1) g/dL Albumin/Globulin Ratio (1.0-2.8) Lipase (23-300) U/L Urine RBC 1-5/hpf (0-5/HPF) Urine WBC 30-100/hpf H (0-5/HPF) Ur Squamous Epith Cells 0-1 /hpf (0-5/HPF) Urine Bacteria Moderate (10-30) H (None) Ur Culture Indicated? Specimen cultured 09/02/19 Range/Units 17:51 WBC (4.5-11.0) X10^3/uL RBC (4.0-5.2) X10^6/uL Hgb (12.0-16.0) g/dL Hct (36-46) % MCV (80-100) fL MCH (26-34) PG MCHC (30-36) % RDW (11.6-14.8) % Plt Count (150-400) X10^3/uL Neut % (Auto) (50-75) % Lymph % (Auto) (25-40) % Sherman % (Auto) (3-14) % Eos % (Auto) (2-4) % Baso % (Auto) (0-2) % Neut # (Auto) (0393-9739) /uL Lymph # (Auto) (6771-1482) /uL Sherman # (Auto) (0-900) /uL Eos # (Auto) (0-450) /uL Baso # (Auto) (0-100) /uL PT (10.1-12.7) SECONDS INR (0.9-1.3) APTT (26.4-36.2) SECONDS Sodium 140 (137-145) mmol/L Potassium 3.8 (3.4-5.1) mmol/L Chloride 102 (98-107) mmol/L Carbon Dioxide 32 (22-32) mmol/L BUN 21 H (7-17) mg/dL Creatinine 2.00 H (0.52-1.04) mg/dL Estimated GFR 24.1 L (>60) mL/min BUN/Creatinine Ratio 10.5 (6-22) Glucose 248 H (80-110) mg/dL Calcium 10.5 H (8.4-10.2) mg/dL Total Bilirubin 0.5 (0.2-1.3) mg/dL AST 19 (14-36) IU/L ALT 15 (9-52) IU/L Alkaline Phosphatase 140 H (38-126) U/L Total Protein 7.1 (6.3-8.2) g/dL Albumin 4.0 (3.5-5.0) g/dL Globulin 3.1 (1.7-4.1) g/dL Albumin/Globulin Ratio 1.3 (1.0-2.8) Lipase 65 (23-300) U/L Urine RBC (0-5/HPF) Urine WBC (0-5/HPF) Ur Squamous Epith Cells (0-5/HPF) Urine Bacteria (None) Ur Culture Indicated? Point of care testing: Urine Dip Bedside Urine Glucose 250 mg/dl Bedside Urine Bilirubin - Negative Bedside Urine Ketone - Negative Urine Specific [place] 1.015 Bedside Urine Occult Blood +/- Bedside Urine pH 6.0 Bedside Urine Protein +/- 15 Bedside Urine Urobilinogen - Negative Bedside Urine Nitrite - Negative Bedside Urine Leukocytes ++ [address] scan - abdomen: Radiologist's impression: PROCEDURE: CT KIDNEY URETER BLADDER (KUB) INDICATIONS: R flank pain, feels like prior kidney stone TECHNIQUE: Noncontrast 5 mm thick sections acquired from the diaphragms to the symphysis. 5 mm thick coronal and sagittal reformats were then performed. For radiation dose reduction, the following was used: automated exposure control, adjustment of mA and/or kV according to patient size. COMPARISON: [facility], CT, CT ABDOMEN PELVIS WO CON, 06/09/2019, 11:22. FINDINGS: Image quality: Excellent. Lung bases: Lung bases are clear. Heart size is normal. Urinary system: Both kidneys are normal in size. There are multiple nonobstructing bilateral renal calculi. There is a right renal pelvic calculus measuring 12 mm, as before. No hydronephrosis or perinephric fat stranding. Both ureters appear non-dilated throughout their expected courses. Bladder wall thickness is normal; no ca lcified bladder stones. Other solid organs: Liver is normal in size. Gallbladder demonstrates multiple calculi within its lumen. Pancreas is normal in contours. Spleen is normal in size. No adrenal nodules. Peritoneum and bowel: Unenhanced bowel loops demonstrate normal wall thickness and caliber. No free fluid or air. Nodes and vessels: No retroperitoneal or mesenteric adenopathy by size criteria. Aorta and inferior vena cava are normal in caliber. Abdominal wall: No ventral hernias. Anterior pelvic fluid collection measuring 88 mm is present , as before. Pelvis: No free pelvic fluid. No inguinal hernias or adenopathy. Bones: No suspicious bony lesions. No vertebral body compression fractures. IMPRESSION: 1. Nonobstructing bilateral renal calculi. No evidence of ureteral calcification. 2. Appendix not seen. No evidence of appendicitis. 3. Cholelithiasis. 4. Chronic anterior pelvic wall fluid collection. Dictated by: Lokesh Rios M.D. on 09/02/2019 at 18:15 Approved by: Lokesh Rios M.D. on 09/02/2019 at 18:20 ECG Data Attestation: I personally reviewed and interpreted this ECG as follows: (See below) Interpretation: Twelve lead EKG performed September 02, 2019 at 1722, as follows: Regular ventricular rhythm with a rate of 75 beats per minute AK interval 194 milliseconds QRS duration 118 millisecond QTC interval [address] T wave changes No ectopy Interpretation: Normal sinus rhythm; marked left axis deviation; low QRS voltage in precordial leads; incomplete right bundle branch block; moderate ST depression; no signs of acute infarct; abnormal EKG as interpreted by ED MD. Discharge Plan Departure Patient Disposition: Admitted as Observation Clinical Impression: Cellulitis Qualifiers: Site of cellulitis: extremity Site of cellulitis of extremity: lower extremity Laterality: unspecified laterality Qualified Code(s): L03.119 - Cellulitis of unspecified part of limb Discharge Date/Time: 09/02/19 19:24 Admit Date/Time: 09/02/19 19:24 Admit Provider: Dayton Ocampo
[2019-09-02 17:52] LABS: Bacteria Urine Moderate (10-30); Culture Indicated Urine Specimen Cultured; RBC Urine 1-5/HPF (0-5/HPF); Squamous Epithelial Cell Urine 0-1 /HPF (0-5/HPF); WBC Urine 30-100/HPF (0-5/HPF)
[2019-09-02 17:59] LABS: Add Manual Diff / Slide Review NO; Basophils Absolute Auto 100 /uL (0-100); Basophils Percent Auto 0.8 % (0-2); Eosinophils Absolute Auto 200 /uL (0-450); Eosinophils Percent Auto 2.8 % (2-4); Hematocrit 37.2 % (36-46); Hemoglobin 12.9 g/dL (12.0-16.0); Lymphocytes Absolute Auto 1800 /uL (1100-4500); Lymphocytes Percent Auto 21.2 % (25-40); Mean Corpuscular HGB Conc 34.6 % (30-36); Mean Corpuscular Hemoglobin 31.9 PG (26-34); Mean Corpuscular Volume 92.1 fL (80-100); Monocytes Absolute Auto 600 /uL (0-900); Neutrophils Absolute Auto 5800 /uL (1500-7000); Neutrophils Percent Auto 68.2 % (50-75); Platelet Count 233 X10^3/uL (150-400); Red Blood Cell Count 4.03 X10^6/uL (4.0-5.2); Red Cell Distribution Width 14.8 % (11.6-14.8); White Blood Cell Count 8.5 X10^3/uL (4.5-11.0)
[2019-09-02 18:09] LABS: Prothrombin Time 11.9 SECONDS (10.1-12.7)
[2019-09-02] MEDS: VANCOMYCIN 1,000 MG/200 ML PIGGYBACK 200 MG IV (18:10)
[2019-09-02 18:12] LABS: PTT Partial Thromboplastin Tim 36 SECONDS (26.4-36.2)
[2019-09-02 18:13] LABS: Alanine Aminotransferase 15 IU/L (9-52); Albumin Globulin Ratio 1.3 (1.0-2.8); Alkaline Phosphatase 140 U/L (38-126); Aspartate Aminotransferase 19 IU/L (14-36); BUN Creatinine Ratio 10.5 (6-22); Bilirubin Total 0.5 mg/dL (0.2-1.3); Blood Urea Nitrogen 21 mg/dL (7-17); Calcium 10.5 mg/dL (8.4-10.2); Carbon Dioxide 32 mmol/L (22-32); Chloride 102 mmol/L (98-107); Estimated Glomerular Filt Rate 24.1 mL/min (>60); Globulin 3.1 g/dL (1.7-4.1); Glucose 248 mg/dL (80-110); HEMOLYSIS 16 (0-50); Lipase 65 U/L (23-300); Potassium 3.8 mmol/L (3.4-5.1); Sodium 140 mmol/L (137-145); Total Protein 7.1 g/dL (6.3-8.2)
[2019-09-02 18:16] VITALS: BP 146/55; PULSE 74; RESP 16; O2SAT 93
[2019-09-02 18:30] VITALS: BP 140/57; PULSE 68; RESP 16; O2SAT 98
--- NOTE | 2019-09-02 19:21 | PC.NURSE ---
pt arrived to Er with b/l leg swelling and redness. dressings on legs. right leg has increase in swelling. pt reports she has neruropathy in her legs. pt is ambulating with a walker in no distress. pt is aaox4. no shortness of breath.
[2019-09-02 19:26] VITALS: BMI 50.5
[2019-09-02] MEDS: OXYCODONE IR 5 MG TABLET PO (20:09)
[2019-09-02 20:11] LABS: Hemoglobin A1C% w Est Avg Glu 9.1 % (4.0-6.0)
[2019-09-02 20:13] VITALS: BP 139/50; PULSE 71; RESP 16; TEMP 36.7; O2SAT 97
--- NOTE | 2019-09-02 20:53 | P.HP_ITS ---
History of Present Illness History of Present Illness Date Patient Seen: 09/02/19 Time Patient Seen: 20:31 Chief complaint: R Flank pain / Cellulitis, edema, lower legs. Narrative: Ms. Cassie Solares is a 71-year-old female patient with a complex medical history most significant for hypertension, uncontrolled diabetes with retinopathy and neuropathy, chronic renal failure stage IV, asthma, bilateral lower extremity edema, long-term anticoagulation status post CVA and pulmonary embolism, history of vitreous hemorrhage and glaucoma who presents to the ER via EMS from [facility] following evaluation by Dr. Rodriguez for worsening erythema warmth and swelling bilateral lower extremities. The patient has chronic bilateral lower extremity edema but is a poor historian and is unable to report changes in her lower extremities having bilateral lower ext remity neuropathy and impaired vision with blindness left eye. The patient also reports right upper quadrant abdominal pain subcostal in the anterior axillary line which is palpable reproducible. She states that the pain is similar to when she had a previous kidney stone but is only associated with movement and has no pain at rest. The patient reports no systemic systems of fevers or chills or rigors. She has no complaints of headaches or dizziness nasal congestion or sore throat. She denies chest pain or palpitations. Denies shortness of breath and is ambulatory with a walker without dyspnea. She does have a history of asthma for which she uses albuterol Flovent inhalers. Denies nausea or vomiting and has occasional constipation for which she uses MiraLax. She cannot state when she had her last bowel movement. She does describe discomfort and incomplete voiding but denies burning frequency or urgency. There is no report from the facility of hematuria. Upon arrival the ER the patient is afebrile with a temperature of 98.7?, heart rate of 76, hypertensive 165/62, respirations of 18 saturating 94% on room air. CT the abdomen and pelvis is taken which finds multiple nonobstructing renal calculi without hydronephrosis or perinephric stranding, the gallbladder is normal with cholelithiasis but no evidence of ductal obstruction. This can does note pelvic wall fluid collection which is been stable from previous exam at 88 mm. On laboratory analysis the patient has white count of 8.5 with no shift, hemoglobin of 12.9, hematocrit 37.2, platelets 233. Her PT is 11.9 with an INR 1.0 and a PTT of 39. Her electrolytes are within normal limits and she has a BUN 21 and creatinine of 2.0 with an EGFR of 24.1. Her liver functions are within normal limits save and alkaline phosphatase which is elevated 140. She has a normal lipase of 65. Her nonfasting glucose is 248. Screening UA is positive for WBCs and bacteria and reflex to culture. An ABG is obtained finding a pH 7.38, pCO2 36.3, PO2 of 64, bicarb of 21.6 and a base excess of -4 on room air. The patient is admitted to the hospital for uncontrolled diabetes with bilateral lower extremity cellulitis in the setting of chronic venous stasis and ulcers. Patient History Medical History (Updated 09/02/19 @ 21:20 by SHAUNA Morales) Asthma (Acute) Bronchitis (Acute) Cataract (Acute) Chronic anticoagulation (Acute) Chronic pain (Acute) Chronic renal failure, stage 4 (severe) (Acute) CVA (cerebral vascular accident) (Acute) Depression (Acute) Diabetes (Acute) Diabetic neuropathy (Acute) Diabetic retinopathy (Acute) Hypertension (Acute) Lower extremity edema (Acute) Morbid obesity (Acute) PTSD (post-traumatic stress disorder) (Acute) Pulmonary embolism (Acute) Vitreous hemorrhage of left eye due to diabetes mellitus (Acute) Surgical History (Updated 09/02/19 @ 21:20 by SHAUNA Morales) H/O: hysterectomy (Acute) Hx of appendectomy (Acute) Hx of tonsillectomy (Acute) Hx of total knee arthroplasty (Acute) Status post cataract extraction and insertion of intraocular lens of right eye (Acute) Family & Social History Family History Mother No known health problems Father Lung cancer Sister Lung cancer Tobacco dependence Social History: household members caregiver Prior Living Arrangements Skilled Nurse Facility Safety & Behavioral: Feels Safe in Current Yes Environment Been Physically Hurt or No Threatened By a Person Suicidal Ideation Description None Suicide Plan Description No Plan Tobacco & Substance use: Smoking Status Former smoker alcohol intake former alcohol intake frequency 0-2 drinks per day Substance Use Type does not use Comment: The patient currently resides at [facility]. Smoking: Patient is a past smoker with a 15 pack year history quitting in 1986. Alcohol: Patient denies alcohol consumption. Substance use: Patient denies recreation pharmaceuticals, herbal or cannabis use. Advanced directives: The patient has a POLST form indicating her desire to be FULL CODE with notation to withhold treatment if she is terminally ill. She consents to the use of antibiotics but declines use of artificial nutrition. The patient designates her son Georgi Daugherty ([phone]) to be her surrogate decision maker. Meds Home Medications and Allergies Home Medications Medication Instructions Recorded Confirmed Type Flovent Diskus 100 mcg INH BIDP PRN #0 09/08/16 09/02/19 History lamotrigine [Lamictal] 300 mg PO DAILY #0 09/08/16 09/02/19 History atorvastatin 40 mg PO BEDTIME #0 01/18/18 09/02/19 History erythromycin 0.5 inch EYE-LEFT BEDTIME 08/08/18 09/02/19 History latanoprost 1 drp EYE-RIGHT BEDTIME 08/08/18 09/02/19 History Eucerin Original 1 applic TOPICAL BID 08/13/18 09/02/19 History ammonium lactate 1 applic TOPICAL BID #0 08/13/18 09/02/19 History cholecalciferol (vitamin D3) 1,000 unit PO BEDTIME 08/13/18 09/02/19 History [Vitamin D3] glipizide 10 mg PO BID 08/13/18 09/02/19 History Lantus Solostar U-100 Insulin 26 unit SUBCUT BID 03/07/19 09/02/19 History acetaminophen 650 mg PO Q6H PRN 03/07/19 09/02/19 History albuterol sulfate [ProAir HFA] 2 puff INHALATION Q4H PRN 03/07/19 09/02/19 History lorazepam [Ativan] 1 mg PO Q4HR PRN 03/07/19 09/02/19 History nystatin 1 applic TOPICAL TID PRN 03/08/19 09/02/19 History Eliquis 2.5 mg PO BID 03/24/19 09/02/19 History insulin lispro [Humalog KwikPen 1 dose SUBCUT TID 03/24/19 09/02/19 History Insulin] gabapentin 300 mg PO BID 03/28/19 09/02/19 History lidocaine 1 patch TOPICAL DAILY 03/28/19 09/02/19 History polyethylene glycol 3350 17 g PO DAILY 09/02/19 09/02/19 History quetiapine 25 mg PO BEDTIME 09/02/19 09/02/19 History quetiapine 50 mg PO BEDTIME 09/02/19 09/02/19 History sertraline 25 mg PO DAILY 09/02/19 09/02/19 History torsemide 20 mg PO DAILY 09/02/19 09/02/19 History tramadol 50 mg PO BEDTIME 09/02/19 09/02/19 History tramadol 50 mg PO PRN PRN 09/02/19 09/02/19 History Allergies Allergy/AdvReac Type Severity Reaction Status Date / Time Iodine and Iodide Containing Allergy Intermediate i get Verified 03/24/19 13:55 Produc spots all [IODINE AND IODIDE over my CONTAINING PRODUC] body Penicillins [PENICILLINS] Allergy Intermediate makes my Verified 03/24/19 13:55 bones and joints ache aspirin [ASPIRIN] Allergy Unknown Verified 03/24/19 13:55 meclizine [MECLIZINE] Allergy Unknown Verified 03/24/19 13:55 codeine [CODEINE] AdvReac Unknown gives me Verified 03/24/19 13:55 bloody nightmares potassium [POTASSIUM] AdvReac Unknown Verified 03/24/19 13:55 Review of Systems Review of Systems ROS Unobtainable: All systems reviewed & are unremarkable except as noted in HPI and below Exam Vital Signs (past 8 hours): - 09/02/19 17:00 09/02/19 18:16 09/02/19 18:30 Temperature 98.7 F Pulse Rate 76 74 68 Respiratory Rate 18 16 16 Blood Pressure 165/62 H Blood Pressure [Right Arm] 146/55 H 140/57 L Pulse Oximetry 94 93 98 09/02/19 20:13 Temperature 98.1 F Pulse Rate 71 Respiratory Rate 16 Blood Pressure 139/50 L Blood Pressure [Right Arm] Pulse Oximetry 97 Oxygen Delivery Method Room Air Narrative Exam Narrative: GENERAL APPEARANCE: well developed, morbidly obese female, BMI 50.5 in no acute distress. HEENT: Normocephalic, PERRLA, blind with ocular changes left eye, diminished vision right eye, EOMs intact without nystagmus, no sinus tenderness to percussion, no rhinorrhea, mucous membranes are moist and pink without lesions or exudate. NECK/THYROID: neck supple, no JVD, no carotid bruit, no thyromegaly, trachea midline. LYMPH NODES: no cervical or supraclavicular lymphadenopathy. SKIN: [place], warm and dry, erythema with blistering and ulcer lower extremities HEART: regular rate and rhythm, S1-S2, 1/6 systolic murmur right upper sternal border, no rubs or gallops, brisk capillary refill, bilateral nonpitting lower extremity edema LUNGS: Clear to auscultation with end expiratory wheeze left upper lobe, no coarseness or crackles, no cough present CHEST: Symmetrical movement, no accessory muscle use, no pain to AP and lateral compression. ABDOMEN: Soft, no distention, RUQ abdominal tenderness anterior axillary line, negative Roque sign, no guarding or peritoneal signs, no organomegaly, no flank or suprapubic tenderness, active bowel tones. BACK: Normal curvature, nontender to palpation, no CVA tenderness on percussion EXTREMITIES: Bilateral lower extremity edema with erythema and warmth from the popliteal fossa to tibial tubercle distal, moves all extremities, no deformities. NEUROLOGIC: AAO person place and date, impaired vision right eye blind left eye, bilateral lower extremity neuropathy distal to the knee, hearing grossly normal to speech. PSYCH: alert, repetitive questioning, stable behavior Objective Labs Result Diagrams: 09/02/19 17:51 09/02/19 17:51 Labs: Laboratory Results - last 24 hr 09/02/19 09/02/19 09/02/19 17:13 17:51 17:51 WBC 8.5 RBC 4.03 Hgb 12.9 Hct 37.2 MCV 92.1 MCH 31.9 MCHC 34.6 RDW 14.8 Plt Count 233 Neut % (Auto) 68.2 Lymph % (Auto) 21.2 L Maury % (Auto) 7.0 Eos % (Auto) 2.8 Baso % (Auto) 0.8 Neut # (Auto) 5800 Lymph # (Auto) 1800 Maury # (Auto) 600 Eos # (Auto) 200 Baso # (Auto) 100 PT 11.9 INR 1.0 APTT 36 Sodium Potassium Chloride Carbon Dioxide BUN Creatinine Estimated GFR BUN/Creatinine Ratio Glucose Hemoglobin A1c Calcium Total Bilirubin AST ALT Alkaline Phosphatase Total Protein Albumin Globulin Albumin/Globulin Ratio Lipase Urine RBC 1-5/hpf Urine WBC 30-100/hpf H Ur Squamous Epith Cells 0-1 /hpf Urine Bacteria Moderate (10-30) H Ur Culture Indicated? Specimen cultured 09/02/19 09/02/19 17:51 17:51 WBC RBC Hgb Hct MCV MCH MCHC RDW Plt Count Neut % (Auto) Lymph % (Auto) Maury % (Auto) Eos % (Auto) Baso % (Auto) Neut # (Auto) Lymph # (Auto) Maury # (Auto) Eos # (Auto) Baso # (Auto) PT INR APTT Sodium 140 Potassium 3.8 Chloride 102 Carbon Dioxide 32 BUN 21 H Creatinine 2.00 H Estimated GFR 24.1 L BUN/Creatinine Ratio 10.5 Glucose 248 H Hemoglobin A1c 9.1 H Calcium 10.5 H Total Bilirubin 0.5 AST 19 ALT 15 Alkaline Phosphatase 140 H Total Protein 7.1 Albumin 4.0 Globulin 3.1 Albumin/Globulin Ratio 1.3 Lipase 65 Urine RBC Urine WBC Ur Squamous Epith Cells Urine Bacteria Ur Culture Indicated? Assessment & Plan Assessment & Plan narrative: This is a 71-year-old female with uncontrolled diabetes and hyperglycemia who presents to the emergency department with bilateral lower extremity cellulitis. 1. Bilateral lower extremity cellulitis, acute, present on admission, active -history bilateral lower extremity edema with venous stasis and ulcers, neuropathy bilateral lower extremities. -patient evaluated by Dr. Rodriguze at [facility] today and referred to ER for evaluation. -normal white count 8.5 with no shift. History of positive MRSA screening in April of 2018. -bilateral leg skin lesions, for wounds left with blistering, 2 on the right, all without drainage. -patient receives wound care twice weekly. -patient received vancomycin 1000 mg IV in the ER, patient with CKD stage 4, continue vancomycin with pharmacy to dose. 2. Diabetes type 2, uncontrolled, chronic, present on admission, active -history of poorly controlled diabetes with a elevated hemoglobin A1c at 8.5 in May of 2019, serum glucose on admission is 248 without acidosis. -fingerstick blood sugars AC and HS. -continue glipizide 10 mg twice daily, continue vitamin D3 1000 units at bedtime for enhanced insulin sensitivity. -will continue Lantus 26 units subcu twice daily, will add prandial insulin 2 units with meals and medium dose range correctional scale. -will recheck hemoglobin A1c. -dietary to consult for uncontrolled diabetes. 3. Asthma, chronic, present on admission, stable. -unknown severity or persistence of asthma, and expiratory wheeze left upper lobe. -respiratory therapy to consult and evaluate -continue albuterol ProAir inhaler 2 puffs every 4 hours as needed, Flovent Diskus 100 mcg twice daily as needed. -albuterol nebulizer every 4 hours as needed for shortness of breath or wheezing. 4. Chronic kidney disease stage 4, present on admission, stable. -On review of prior labs patient's baseline creatinine varies between 1.8 and 2.2, creatinine on admit is 2.0, creatinine clearance is calculated 44.36. -continue home regimen of torsemide 20 mg daily. -will avoid never toxic agents as able, will renally dose vancomycin per pha rmacy. -will closely follow renal function. 5. Right upper quadrant abdominal pain, acute, present on admission, active -palpable reproducible pain subcostal right upper quadrant anterior axillary li ne. No pain at rest pain exacerbated with movement. -CT of the abdomen and pelvis finds multiple nonobstructing renal calculi without hydronephrosis or perinephric stranding, cholelithiasis without c holecystitis. -this appears to be abdominal wall pain, will treat with tramadol 50 mg every 4 hours as needed, oxycodone 5 mg every 6 hours as needed for severe pain. 6. Current use long-term anticoagulation, chronic, stable -patient with history of prior pulmonary embolism as well as CVA. -continue Eliquis 2.5 mg twice daily -no evidence of abnormal bleeding or bruising. 7. Chronic pain disorder, present on admission, stable -patient with chronic pain related to degenerative disc disease at L5-S1. -will continue home regimen of lidocaine patch topically as needed, gabapentin 300 mg twice daily and tramadol 50 mg every 4 hours as needed. 8. Hyperlipidemia, chronic, stable. -will continue atorvastatin 40 mg daily at bedtime. VTE: Patient is anticoagulated on Eliquis Diet: Medium constant carbohydrate. IV fluid: Saline lock. The patient is admitted to the hospital for worsening cellulitis in the setting of uncontrolled diabetes. The patient is admitted as an inpatient with expected length of stay to be greater than 2 midnights Scores GCS [place] coma scale eye opening: Spontaneous [place] coma scale verbal response: Orientated [place] coma scale motor response: Obey commands [place] coma scale total score: 15 Quality VTE Deep Vein Thrombosis/Pulmonary Embolism Present on Admission: No
[2019-09-02 21:20] VITALS: PULSE 74; RESP 16; O2SAT 96
[2019-09-02] MEDS: APIXABAN 5 MG TABLET 2.5 MG PO (21:23)
[2019-09-02] MEDS: ATORVASTATIN 20 MG TABLET 40 MG PO (21:24)
[2019-09-02] MEDS: GABAPENTIN 300 MG CAPSULE PO (21:25)
[2019-09-02] MEDS: QUETIAPINE 25 MG TABLET 50 MG PO (21:25)
[2019-09-02] MEDS: CHOLECALCIFEROL (VITAMIN D3) 1,000 UNIT TABLET 1000 UNIT PO (21:25)
[2019-09-02] MEDS: glipiZIDE 5 MG TABLET 10 MG PO (21:25)
[2019-09-02] MEDS: INSULIN ASPART 100 UNIT/ML INSULN PEN SUBCUT (21:29)
[2019-09-02] MEDS: INSULIN GLARGINE 100 UNIT/ML 3ML PEN 26 UNIT SUBCUT (21:30)
[2019-09-02] MEDS: ERYTHROMYCIN OPHTH 1 GM OINT 1 APPLIC EYE-LEFT (22:09)
[2019-09-03 00:10] VITALS: BP 150/62; PULSE 66; RESP 18; TEMP 36.3; O2SAT 94
--- NOTE | 2019-09-03 01:18 | PC.NURSE ---
Personnel Research Psychologist Note: 0030: Awake, up to bathroom with one person assist. Vital signs stable. IV in place in lt AC. Assisted to reposition when back in bed. Knees elevated for comfort.
[2019-09-03 03:00] VITALS: BP 133/58; PULSE 59; RESP 20; TEMP 36.1; O2SAT 97
[2019-09-03 05:12] LABS: Add Manual Diff / Slide Review NO; Basophils Absolute Auto 100 /uL (0-100); Basophils Percent Auto 0.9 % (0-2); Eosinophils Absolute Auto 200 /uL (0-450); Eosinophils Percent Auto 2.9 % (2-4); Hemoglobin 11.7 g/dL (12.0-16.0); Lymphocytes Absolute Auto 1200 /uL (1100-4500); Mean Corpuscular HGB Conc 34.5 % (30-36); Mean Corpuscular Hemoglobin 31.9 PG (26-34); Mean Corpuscular Volume 92.5 fL (80-100); Monocytes Absolute Auto 600 /uL (0-900); Monocytes Percent Auto 7.9 % (3-14); Neutrophils Absolute Auto 5200 /uL (1500-7000); Neutrophils Percent Auto 71.3 % (50-75); Platelet Count 180 X10^3/uL (150-400); Red Blood Cell Count 3.68 X10^6/uL (4.0-5.2); Red Cell Distribution Width 14.7 % (11.6-14.8); White Blood Cell Count 7.3 X10^3/uL (4.5-11.0)
[2019-09-03] MEDS: PANTOPRAZOLE 20 MG TABLET PO (06:05)
[2019-09-03 06:56] LABS: BUN Creatinine Ratio 9.5 (6-22); Blood Urea Nitrogen 19 mg/dL (7-17); Calcium 9.9 mg/dL (8.4-10.2); Carbon Dioxide 30 mmol/L (22-32); Chloride 102 mmol/L (98-107); Estimated Glomerular Filt Rate 24.1 mL/min (>60); Glucose 187 mg/dL (80-110); HEMOLYSIS < 15 (0-50); Potassium 3.7 mmol/L (3.4-5.1); Sodium 139 mmol/L (137-145)
[2019-09-03 08:00] VITALS: BP 149/69; PULSE 68; RESP 18; TEMP 36.8; O2SAT 95
[2019-09-03] MEDS: GABAPENTIN 300 MG CAPSULE PO (08:42)
[2019-09-03] MEDS: APIXABAN 5 MG TABLET 2.5 MG PO (08:42)
[2019-09-03] MEDS: SERTRALINE 25 MG TABLET PO (08:42)
[2019-09-03] MEDS: levoFLOXacin 500 MG/100 ML PIGGYBACK 100 MG IV (08:43)
[2019-09-03] MEDS: INSULIN ASPART 100 UNIT/ML INSULN PEN SUBCUT ×4 (08:43→12:04)
[2019-09-03] MEDS: LIDOCAINE PATCH 1 EACH ADH..PATCH TOP (08:43)
[2019-09-03] MEDS: INSULIN GLARGINE 100 UNIT/ML 3ML PEN 26 UNIT SUBCUT (08:46)
[2019-09-03] MEDS: lamoTRIgine 100 MG TABLET 300 MG PO (08:51)
[2019-09-03] MEDS: TORSEMIDE 10 MG TABLET 20 MG PO (09:05)
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
--- NOTE | 2019-09-03 11:11 | CM.DANOTE ---
Addendum entered by Danielle Browning R.N. 09/03/19 14:17: DC - discharged back to [facility], paperwork placed in [facility] folder for staff, cinder snapper assisted with clothing and placed her id bracelet back on, no other belongings, assisted to pt own wc brought by [place] and transferred to [facility]. Original Note: DCP: Case received, EMR reviewed and met with patient. Introduced self and role. Was able to converse with patient in her room to obtain baseline health and activity information. DCP assessment/template completed with information currently available. Patient is a 79 year old female who admitted yesterday afternoon to the care of the hospitalist team. PCP: Dr. Rodriguez. Payer: confirmed: Medicare/[employer]. Patient came to the hospital via ambulance secondary to increased swelling and redness to her lower extremities. Patient holds diagnosis of UTI/cellulitis, and is currently on IV antibiotics. Patient also has history of uncontrolled diabetes. Met with patient in her room. Confirmed that she resides at [facility]. Patient is alert and oriented. She uses a FWW walker for short distances, and has a wheel-chair. Stated that she has assist with showers. Patient at one time has been using [facility] for wound care. P: DCP to continue to follow. She should be able to return to [facility] when she is medically stable, and on oral antibiotics. Will need to contact Jacqueline at [facility] for assessment if she is here another day. Alison Núñez RN/[employer]
[2019-09-03 12:00] VITALS: BP 140/62; PULSE 75; RESP 18; TEMP 36.9; O2SAT 96
[2019-09-03] MEDS: OXYCODONE IR 5 MG TABLET PO (12:05)
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
--- NOTE | 2019-09-03 15:34 | CM.DPC ---
DCP Cont: Faxed signed med list to [facility] at fax # [phone]. Fax confirmation scanned in. Bettina Berger, [facility] Tester [employer]
== END 2019-09-03 14:19 ==
LOC: ED 18:33 → AC 19:25
PROVIDERS: Admitting Provider Nurse Practitioner Adult Health; Emergency Provider Emergency Medicine; PCP Internal Medicine; Visit Provider Nurse Practitioner Adult Health
DX: K80.20 Calculus of gallbladder without cholecystitis without obstruction (principal); R10.11 Right upper quadrant pain; L03.116 Cellulitis of left lower limb; L03.115 Cellulitis of right lower limb; L97.929 Non-pressure chronic ulcer of unspecified part of left lower leg with unspecified severity; L97.919 Non-pressure chronic ulcer of unspecified part of right lower leg with unspecified severity; E11.40 Type 2 diabetes mellitus with diabetic neuropathy, unspecified; E11.65 Type 2 diabetes mellitus with hyperglycemia; I12.9 Hypertensive chronic kidney disease with stage 1 through stage 4 chronic kidney disease, or unspecified chronic kidney disease; E11.22 Type 2 diabetes mellitus with diabetic chronic kidney disease; N18.4 Chronic kidney disease, stage 4 (severe); E66.01 Morbid (severe) obesity due to excess calories; Z68.43 Body mass index [BMI] 50.0-59.9, adult; Z79.01 Long term (current) use of anticoagulants; Z79.4 Long term (current) use of insulin; G89.4 Chronic pain syndrome
CPT/HCPCS: 36415; 74176; 80048; 80053; 81003; 81015; 82962; 83036; 83690; 85025; 85610; 85730; 87086; 93005; 93010; 96365; 96366; 96367; 96372; 97162; 99283; 99285; 99406; G0378; J1956

== ENCOUNTER → 2019-09-10 08:17 | Outpatient (ROUT) | payer MEDICARE, MEDICAID, SELFPAY ==
[2019-09-02 19:26] VITALS: BMI 50.5
[2019-09-10 09:18] LABS: Blood Urea Nitrogen 24 mg/dL (7-17); Calcium 10.6 mg/dL (8.4-10.2); Carbon Dioxide 33 mmol/L (22-32); Chloride 97 mmol/L (98-107); Estimated Glomerular Filt Rate 24.1 mL/min (>60); Glucose 261 mg/dL (80-110); HEMOLYSIS < 15 (0-50); Potassium 3.6 mmol/L (3.4-5.1); Sodium 137 mmol/L (137-145)
== END ==
PROVIDERS: PCP Internal Medicine; Visit Provider Internal Medicine
DX: R60.9 Edema, unspecified (principal)
CPT/HCPCS: 36415; 80048

== ENCOUNTER 2019-09-10 21:39 | Emergency (ER) | payer MEDICARE, MEDICAID, SELFPAY ==
[2019-09-10 21:50] VITALS: BP 163/75; PULSE 84; RESP 17; TEMP 36.9; O2SAT 99
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
[2019-09-10 22:29] LABS: RBC Urine None Seen (0-5/HPF)
[2019-09-10 22:35] LABS: Ur Creatinine 20 (Normal); Ur Specific Gravity 1.015 (Normal)
[2019-09-10 22:36] LABS: UR Morphine/Opiate cutoff 300 Negative (Negative); Urine Amphetamines Negative (Negative); Urine Barbiturates Negative (Negative); Urine Benzodiazepines Negative (Negative); Urine Cocaine Negative (Negative); Urine MDMA Negative (Negative); Urine Methadone Negative (Negative); Urine Methamphetamines Negative (Negative); Urine Oxycodone Negative (Negative); Urine Phencyclidine Negative (Negative); Urine Tetrahydrocannabinol Negative (Negative); Urine Tricyclic Antidepressant Negative (Negative); Urine pH 5 (Normal)
[2019-09-10 22:41] LABS: Bacteria Urine Few (2-10); Culture Indicated Urine Specimen Cultured; Squamous Epithelial Cell Urine 1-5 /HPF (0-5/HPF); WBC Urine 10-30/HPF (0-5/HPF)
[2019-09-10 23:04] LABS: Blood Urea Nitrogen 28 mg/dL (7-17); Carbon Dioxide 32 mmol/L (22-32); Chloride 95 mmol/L (98-107); Estimated Glomerular Filt Rate 24.1 mL/min (>60); Glucose 256 mg/dL (80-110); HEMOLYSIS 43 (0-50); Potassium 3.8 mmol/L (3.4-5.1); Sodium 137 mmol/L (137-145)
[2019-09-10 23:08] LABS: Add Manual Diff / Slide Review NO; Basophils Absolute Auto 100 /uL (0-100); Basophils Percent Auto 1.4 % (0-2); Eosinophils Absolute Auto 200 /uL (0-450); Eosinophils Percent Auto 2.5 % (2-4); Hematocrit 36.8 % (36-46); Lymphocytes Absolute Auto 1500 /uL (1100-4500); Lymphocytes Percent Auto 16.6 % (25-40); Mean Corpuscular HGB Conc 35.2 % (30-36); Mean Corpuscular Hemoglobin 31.9 PG (26-34); Mean Corpuscular Volume 90.6 fL (80-100); Monocytes Absolute Auto 500 /uL (0-900); Monocytes Percent Auto 5.2 % (3-14); Neutrophils Absolute Auto 6900 /uL (1500-7000); Neutrophils Percent Auto 74.3 % (50-75); Platelet Count 252 X10^3/uL (150-400); Red Blood Cell Count 4.07 X10^6/uL (4.0-5.2); Red Cell Distribution Width 14.5 % (11.6-14.8); White Blood Cell Count 9.2 X10^3/uL (4.5-11.0)
[2019-09-10] MEDS: TRAMADOL 50 MG TABLET PO (23:18)
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
[2019-09-11 01:03] VITALS: BP 153/91; PULSE 85; RESP 18; O2SAT 95
--- NOTE | 2019-09-11 01:12 | PC.NURSE ---
Called cabulance to provide ride for pt to get home. Unavailable at this time. Called pt's son. no answer to phone. Explained to patient that if insurance may not pay for the ambulance, that she would be financially responsible for the bill. Pt states understanding and agrees.
== END 2019-09-11 02:15 | disposition home or self-care (01) ==
PROVIDERS: Emergency Provider Emergency Medicine; PCP Internal Medicine
DX: Z71.1 Person with feared health complaint in whom no diagnosis is made (principal); R41.82 Altered mental status, unspecified; S09.90XA Unspecified injury of head, initial encounter; W19.XXXA Unspecified fall, initial encounter
CPT/HCPCS: 36415; 70450; 80048; 80305; 81003; 81015; 85025; 87077; 87086; 87186; 99282; 99284

== ENCOUNTER → 2019-10-08 08:04 | Outpatient (ROUT) | payer MEDICARE, MEDICAID, SELFPAY ==
[2019-10-08 09:12] LABS: BUN Creatinine Ratio 11.9 (6-22); Blood Urea Nitrogen 25 mg/dL (7-17); Calcium 10.4 mg/dL (8.4-10.2); Carbon Dioxide 31 mmol/L (22-32); Chloride 97 mmol/L (98-107); Estimated Glomerular Filt Rate 22.8 mL/min (>60); Glucose 314 mg/dL (80-110); HEMOLYSIS < 15 (0-50); Potassium 3.1 mmol/L (3.4-5.1); Sodium 138 mmol/L (137-145)
== END ==
PROVIDERS: PCP Internal Medicine; Visit Provider Nurse Practitioner Family
DX: N18.9 Chronic kidney disease, unspecified (principal)
CPT/HCPCS: 36415; 80048

== ENCOUNTER → 2019-10-20 09:07 | Outpatient (ROUT) | payer MEDICARE, MEDICAID, SELFPAY ==
[2019-10-20 10:55] LABS: BUN Creatinine Ratio 10.5 (6-22); Blood Urea Nitrogen 23 mg/dL (7-17); Calcium 10.4 mg/dL (8.4-10.2); Carbon Dioxide 32 mmol/L (22-32); Chloride 98 mmol/L (98-107); Estimated Glomerular Filt Rate 21.6 mL/min (>60); Glucose 225 mg/dL (80-110); HEMOLYSIS < 15 (0-50); Magnesium 2.4 mg/dL (1.6-2.3); Potassium 4.3 mmol/L (3.4-5.1); Sodium 138 mmol/L (137-145)
== END ==
PROVIDERS: PCP Internal Medicine; Visit Provider Internal Medicine
DX: E87.6 Hypokalemia (principal); N19 Unspecified kidney failure
CPT/HCPCS: 36415; 80048; 83735

== ENCOUNTER → 2019-12-10 07:32 | Outpatient (ROUT) | payer MEDICARE, MEDICAID, SELFPAY ==
[2019-12-10 08:32] LABS: Hemoglobin A1C% w Est Avg Glu 9.9 % (4.0-6.0)
== END ==
PROVIDERS: PCP Internal Medicine; Visit Provider Nurse Practitioner Family
DX: E11.9 Type 2 diabetes mellitus without complications (principal)
CPT/HCPCS: 36415; 83036

== ENCOUNTER → 2020-01-07 16:38 | Outpatient (ROUT) | payer MEDICARE, MEDICAID, SELFPAY ==
[2020-01-07 17:12] LABS: Add Manual Diff / Slide Review NO; Basophils Absolute Auto 100 /uL (0-100); Basophils Percent Auto 0.9 % (0-2); Eosinophils Absolute Auto 300 /uL (0-450); Eosinophils Percent Auto 3.4 % (2-4); Hematocrit 35.5 % (36-46); Hemoglobin 12.5 g/dL (12.0-16.0); Lymphocytes Absolute Auto 1800 /uL (1100-4500); Lymphocytes Percent Auto 23.7 % (25-40); Mean Corpuscular HGB Conc 35.3 % (30-36); Mean Corpuscular Volume 87.9 fL (80-100); Monocytes Absolute Auto 400 /uL (0-900); Monocytes Percent Auto 5.9 % (3-14); Neutrophils Absolute Auto 5000 /uL (1500-7000); Neutrophils Percent Auto 66.1 % (50-75); Platelet Count 233 X10^3/uL (150-400); Red Blood Cell Count 4.04 X10^6/uL (4.0-5.2); Red Cell Distribution Width 14.1 % (11.6-14.8); White Blood Cell Count 7.5 X10^3/uL (4.5-11.0)
[2020-01-07 17:21] LABS: BUN Creatinine Ratio 13.3 (6-22); Blood Urea Nitrogen 24 mg/dL (7-17); Calcium 9.9 mg/dL (8.4-10.2); Carbon Dioxide 27 mmol/L (22-32); Chloride 99 mmol/L (98-107); Estimated Glomerular Filt Rate 27.2 mL/min (>60); Glucose 365 mg/dL (80-110); HEMOLYSIS < 15 (0-50); Potassium 4.1 mmol/L (3.4-5.1); Sodium 134 mmol/L (137-145)
[2020-01-07 17:31] LABS: NT-proBNP (BNP-Adult 18+) 350 pg/mL (<450)
== END ==
PROVIDERS: PCP Internal Medicine; Visit Provider Nurse Practitioner Family
DX: Z79.899 Other long term (current) drug therapy (principal); R60.9 Edema, unspecified
CPT/HCPCS: 80048; 83880; 85025

== ENCOUNTER 2020-01-26 21:50 | Emergency (ER) | payer MEDICARE, MEDICAID, SELFPAY ==
[2020-01-26 21:51] VITALS: BP 168/74; PULSE 69; RESP 16; TEMP 36.1; O2SAT 98
--- NOTE | 2020-01-26 21:54 | ED.FALL ---
HPI - Fall General Chief Complaint: Fall Stated Complaint: GLF Time Seen by Provider: 01/26/20 21:54 Source: patient and EMS Mode of arrival: EMS Limitations: no limitations History of Present Illness HPI Narrative: This is a 79-year-old female comes to the emergency department with complaint of ground level fall. Patient states that she was transferring when she lost her elastic attacher zigzag and fell backwards and hit her head. She states that she has pain and swelling on the back of her scalp. No bleeding or cuts were noted by EMS. Patient does take Eliquis daily. She states that she has some pain and discomfort in both upper extremities but does have good range of motion. She has pain in her right hip as well as right knee. Patient denies any vision change, she states she has chronic neuropathy and has numbness and tingling in both her lower and upper extremities with no new change. She denies any chest pain or shortness of breath. She denies any neck or back pain currently but states she is hurting all over. Patient has a known history of dyslipidemia, asthma, hypertension, diabetes along with retinopathy and neuropathy, morbid obesity, PTSD a prior pulmonary embolism and asthma. Related Data Home Medications Medication Instructions Recorded Confirmed Flovent Diskus 100 mcg INH BIDP PRN #0 09/08/16 09/02/19 lamotrigine [Lamictal] 300 mg PO DAILY #0 09/08/16 09/02/19 atorvastatin 40 mg PO BEDTIME #0 01/18/18 09/02/19 erythromycin 0.5 inch EYE-LEFT BEDTIME 08/08/18 09/02/19 latanoprost 1 drp EYE-RIGHT BEDTIME 08/08/18 09/02/19 Eucerin Original 1 applic TOPICAL BID 08/13/18 09/02/19 ammonium lactate 1 applic TOPICAL BID #0 08/13/18 09/02/19 cholecalciferol (vitamin D3) 1,000 unit PO BEDTIME 08/13/18 09/02/19 [Vitamin D3] glipizide 10 mg PO BID 08/13/18 09/02/19 Lantus Solostar U-100 Insulin 26 unit SUBCUT BID 03/07/19 09/02/19 acetaminophen 650 mg PO Q6H PRN 03/07/19 09/02/19 albuterol sulfate [ProAir HFA] 2 puff INHALATION Q4H PRN 03/07/19 09/02/19 lorazepam [Ativan] 1 mg PO Q4HR PRN 03/07/19 09/02/19 nystatin 1 applic TOPICAL TID PRN 03/08/19 09/02/19 Eliquis 2.5 mg PO BID 03/24/19 09/02/19 insulin lispro [Humalog KwikPen 1 dose SUBCUT TID 03/24/19 09/02/19 Insulin] gabapentin 300 mg PO BID 03/28/19 09/02/19 lidocaine 1 patch TOPICAL DAILY 03/28/19 09/02/19 polyethylene glycol 3350 17 g PO DAILY 09/02/19 09/02/19 quetiapine 25 mg PO BEDTIME 09/02/19 09/02/19 quetiapine 50 mg PO BEDTIME 09/02/19 09/02/19 sertraline 25 mg PO DAILY 09/02/19 09/02/19 torsemide 20 mg PO DAILY 09/02/19 09/02/19 tramadol 50 mg PO BEDTIME 09/02/19 09/02/19 tramadol 50 mg PO PRN PRN 09/02/19 09/02/19 Previous Rx's Medication Instructions Recorded doxycycline hyclate 100 mg PO BID #14 cap 09/03/19 insulin aspart U-100 [Novolog 5 unit SUBCUT AC #15 ml 09/03/19 Flexpen U-100 Insulin] Allergies Allergy/AdvReac Type Severity Reaction Status Date / Time Iodine and Iodide Containing Allergy Intermediate i get Verified 03/24/19 13:55 Produc spots all [IODINE AND IODIDE over my CONTAINING PRODUC] body Penicillins [PENICILLINS] Allergy Intermediate makes my Verified 03/24/19 13:55 bones and joints ache aspirin [ASPIRIN] Allergy Unknown Verified 03/24/19 13:55 meclizine [MECLIZINE] Allergy Unknown Verified 03/24/19 13:55 codeine [CODEINE] AdvReac Unknown gives me Verified 03/24/19 13:55 bloody nightmares potassium [POTASSIUM] AdvReac Unknown Verified 03/24/19 13:55 Review of Systems Review of Systems ROS Unobtainable: All systems reviewed & are unremarkable except as noted in HPI and below Patient History Medical History Asthma (Acute) Bronchitis (Acute) Cataract (Acute) Chronic anticoagulation (Acute) Chronic pain (Acute) Chronic renal failure, stage 4 (severe) (Acute) CVA (cerebral vascular accident) (Acute) Depression (Acute) Diabetes (Acute) Diabetic neuropathy (Acute) Diabetic retinopathy (Acute) Hypertension (Acute) Lower extremity edema (Acute) Morbid obesity (Acute) PTSD (post-traumatic stress disorder) (Acute) Pulmonary embolism (Acute) Vitreous hemorrhage of left eye due to diabetes mellitus (Acute) Surgical History H/O: hysterectomy (Acute) Hx of appendectomy (Acute) Hx of tonsillectomy (Acute) Hx of total knee arthroplasty (Acute) Status post cataract extraction and insertion of intraocular lens of right eye (Acute) Social History household members: caregiver Smoking Status: Former smoker alcohol intake: former Smoking Status: Former smoker alcohol intake frequency: 0-2 drinks per day Substance Use Type: does not use Exam Narrative Exam Narrative: GEN: Obese female, alert and oriented x 3, patient appears to be in mild distress. HEENT: Atraumatic, pupils are equal round reactive to light, extraocular movements are intact, nares are clear. Throat is clear without any exudates, erythema, tonsillar enlargement or uvular deviation HEART: Regular rate and rhythm without murmur, clicks, rubs. Pulses are equal in upper extremities LUNGS:Lungs clear to auscultation, no wheezes, rales, crackles, chest moves symmetrically, no tachypnea or accessory muscle use. No pain with palpation. ABD:bowel sounds normal, soft, non-tender, no guarding, rebound, rigidity, no masses noted, no hepatosplenomegaly :No CVA tenderness MSCL: Patient has some right hip tenderness, she also has some mild tenderness over the right knee, difficult to appreciate any deformity secondary to habitus. NEURO:CN 2-12 intact, sensation normal SKIN: Patient does have some erythema and hyperpigmentation of bilateral lower extremities about midshaft towards the feet which appears chronic does not appear acutely infected. Initial Vital Signs Initial Vital Signs: Vital Signs Temperature 97 F L 01/26/20 21:51 Pulse Rate 69 01/26/20 21:51 Respiratory Rate 16 01/26/20 21:51 Blood Pressure 168/74 H 01/26/20 21:51 Pulse Oximetry 98 01/26/20 21:51 Course Orders Ordered: Discontinued Medications Acetaminophen (Tylenol) 975 mg PO NOW ONE Stop: 01/26/20 22:09 Last Admin: 01/26/20 22:45 Dose: Not Given Documented by: SAIMA Tramadol HCl (Ultram) 50 mg PO NOW ONE Stop: 01/26/20 22:51 Last Admin: 01/26/20 22:56 Dose: 50 mg Documented by: SAIMA Tramadol HCl (Ultram) 50 mg PO NOW ONE Stop: 01/27/20 06:18 Last Admin: 01/27/20 06:25 Dose: 50 mg Documented by: RAHEEM Vital Signs Vital signs: Vital Signs - 8 hr 01/26/20 21:51 01/27/20 00:13 01/27/20 01:13 Temperature 97 F L Pulse Rate 69 61 62 Respiratory Rate 16 16 16 Blood Pressure 168/74 H Blood Pressure [Left Arm] 150/65 H Pulse Oximetry 98 94 98 01/27/20 02:15 Temperature Pulse Rate 51 L Respiratory Rate 16 Blood Pressure Blood Pressure [Left Arm] 139/99 H Pulse Oximetry 97 MDM - Fall Lab Data Labs: Lab Results 01/26/20 Range/Units 22:35 Urine Color Yellow Urine Appearance Slightly cloudy Urine pH 5.0 (4.5-8.0) Ur Specific [place] 1.010 (1.000-1.035) Urine Protein Negative (Negative) Urine Glucose (UA) 2+ H (Negative) g/dL Urine Ketones Negative (NEGATIVE) Urine Occult Blood Trace-lysed (Negative) Urine Nitrate Negative (Negative) Urine Bilirubin Negative (NEGATIVE) Urine Urobilinogen 0.2 (0.2) E.U./dL Ur Leukocyte Esterase 1+ H (NEGATIVE) Urine RBC None seen (0-5/HPF) Urine WBC 30-100/hpf H (0-5/HPF) Ur Squamous Epith Cells 1-5 /hpf (0-5/HPF) Urine Bacteria Few (2-10) H (None) Urine Yeast 0-1/hpf (None) Ur Culture Indicated? Specimen cultured Imaging Data CT scan - head: Radiologist's Impression: No acute intracranial abnormality. Age-appropriate exam. Focal right posterior occipital scalp hematoma. Stable intracranial exam. CT Cspine: Radiologist's Impression: No acute fracture, severe cervical spondylosis. 12 x 15 right thyroid nodule recommended outpatient thyroid ultrasound right hip xray: Attestation: I personally reviewed and interpreted this imaging study as follows: My Impression: No fracture, no dislocation or other acute findings noted. knee xray: Attestation: I personally reviewed and interpreted this imaging study as follows: My Impression: Patient has hardware that does appear in place, no fracture or loosening of hardware is appreciated. No dislocation. MDM Narrative Medical decision making narrative: Patient comes to the emergency department for ground level fall on [place]. Head CT is negative, C-spine was included based on patient's age. Patient's was complaining of knee and hip pain and x-ray was ordered and appears to be negative. Patient was given Ultram p.o. here for pain. She does not have any obvious abrasions or lacerations warranting updating of her tetanus at this time. Patient was updated on her imaging findings. UA does show leukocyte esterase with 30-100 wbc's and few bacteria was sent for culture as patient does not have any clear symptoms at this time. Discussed with patient she states in the past her son has come to pick her up. When asked if she would like us to contact him she states ?that is a stupid questioned? and does not answer any further. We did contact her care facility they do not have someone that can come get her at this time, we did attempt to contact her son but did not reach him. At this time patient is discharged but boarding in the department until we were able to find appropriate transportation home to her care facility. 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 Unable to reach her son. Patient has been aggressive in the past and verbally abuse and facility staff felt it would be more appropriate for them to come and get her at 7am. Patient has slept in department and been up and to bathroom with several times with assist. She had one additional dose of ultram her normal pain medication. Discharge Plan Departure Patient Disposition: Home Clinical Impression: Fall from ground level, Acute pain of right hip, Acute pain of right knee, Right thyroid nodule Hematoma of scalp Qualifiers: Encounter type: initial encounter Qualified Code(s): S00.03XA - Contusion of scalp, initial encounter Discharge Date/Time: 01/27/20 07:31 Instructions: DI for Hematoma (Bruise) Activity Restrictions/Additional Instructions: Your imaging today shows no acute fractures or bleed, there is a hematoma on her posterior scalp, and incidentally a thyroid nodule on the right is noted and outpatient ultrasound is recommended unless this has already been done. Speak with your physician about having this scheduled. Continue home medications as prescribed. You may continue to take Ultram as prescribed for pain. If you have altered mental status, increasing confusion, severe headaches, new vision changes, persistent vomiting, new weakness or numbness of your extremities that is changed from your normal baseline, rapidly worsening pain or other new or concerning symptoms return to the ER. Prescriptions: No Action lamotrigine [Lamictal] 100 MG tablet 300 mg PO DAILY Qty: 0 RF: 0 Flovent Diskus 100 MCG blister with device 100 mcg INH BIDP PRN (Reason: asthma) Qty: 0 RF: 0 atorvastatin 40 MG tablet 40 mg PO BEDTIME Qty: 0 RF: 0 latanoprost 0.005 % Drops 1 drp EYE-RIGHT BEDTIME RF: 0 erythromycin 5 mg/gram (0.5 %) Ointment 0.5 inch EYE-LEFT BEDTIME RF: 0 ammonium lactate 12 % Lotion 1 applic TOPICAL BID Qty: 0 RF: 0 glipizide 10 mg Tablet 10 mg PO BID RF: 0 Eucerin Original Lotion 1 applic TOPICAL BID RF: 0 cholecalciferol (vitamin D3) [Vitamin D3] 1,000 unit Tablet 1,000 unit PO BEDTIME RF: 0 acetaminophen 325 mg Tablet 650 mg PO Q6H PRN (Reason: PAIN) RF: 0 lorazepam [Ativan] 1 mg Tablet 1 mg PO Q4HR PRN (Reason: behaviours) RF: 0 albuterol sulfate [ProAir HFA] 90 mcg/actuation Hfa Aerosol Inhaler 2 puff INHALATION Q4H PRN (Reason: asthma) RF: 0 Lantus Solostar U-100 Insulin 100 unit/mL (3 mL) Insulin Pen 26 unit SUBCUT BID RF: 0 nystatin 100,000 unit/gram Powder 1 applic TOPICAL TID PRN (Reason: Skin Irritation) RF: 0 insulin lispro [Humalog KwikPen Insulin] 100 unit/mL Insulin Pen 1 dose subcut TID RF: 0 Eliquis 2.5 mg Tablet 2.5 mg PO BID RF: 0 tramadol 50 mg Tablet 50 mg PO PRN PRN (Reason: PAIN) RF: 0 quetiapine 50 mg Tablet 50 mg PO BEDTIME RF: 0 quetiapine 25 mg tablet 25 mg PO BEDTIME RF: 0 tramadol 50 mg tablet 50 mg PO BEDTIME RF: 0 torsemide 20 mg Tablet 20 mg PO DAILY RF: 0 polyethylene glycol 3350 17 gram Powder In Packet 17 g PO DAILY RF: 0 sertraline 25 mg Tablet 25 mg PO DAILY RF: 0 Novolog Flexpen U-100 Insulin 100 unit/mL (3 mL) Insulin Pen 5 unit subcut AC Qty: 15 RF: 0 doxycycline hyclate 100 mg capsule 100 mg PO BID Qty: 14 RF: 0 lidocaine 4 % Adhesive Patch,Medicated 1 patch TOPICAL DAILY RF: 0 gabapentin 300 mg Capsule 300 mg PO BID RF: 0 Referrals: Danielle Rodriguez MD [Primary Care Provider] -
--- NOTE | 2020-01-26 22:06 | DI.CT.S_ITS ---
PROCEDURE: CT HEAD/BRAIN WO CON INDICATIONS: fall, hit head on eliquis TECHNIQUE: Noncontrast 4.5 mm thick angled axial sections acquired from the foramen magnum to the vertex, with coronal and sagittal reformats. For radiation dose reduction, the following was used: automated exposure control, adjustment of mA and/or kV according to patient size. COMPARISON: [facility], CT, CT HEAD/BRAIN WO CON, 09/10/2019, 22:24. [facility], CT, CT HEAD/BRAIN WO CON, 04/06/2019, 23:51. FINDINGS: Image quality: Excellent. CSF spaces: Basal cisterns are patent. No extra-axial fluid collections. The ventricles are symmetric in size and shape. Brain: No intracranial bleeds or masses. There is cerebral volume loss for age, with resultant ventricular and sulcal prominence. There are periventricular and deep white matter chronic small vessel ischemic changes. There is intracranial internal carotid artery atherosclerosis. Skull and face: Calvarium and visualized facial bones appear intact, without suspicious lesions. Scalp contusion posterior right occipital region. Sinuses: Visualized sinuses and mastoids are clear. IMPRESSION: Posttraumatic right posterior occipital scalp hematoma, mild. No brain injury or intracranial hemorrhage found. Dictated by: Terrence Sanches M.D. on 01/27/2020 at 8:55 Approved by: Terrence Sanches M.D. on 01/27/2020 at 8:56
--- NOTE | 2020-01-26 22:06 | DI.RAD.S_ITS ---
PROCEDURE: XR KNEE RT 3V INDICATIONS: knee pain, fall TECHNIQUE: 3 views of the knee were acquired. COMPARISON: [facility], KNEE 3V RIGHT, 05/08/2015, 21:48. [facility], KNEE 3V RIGHT, 01/30/2007, 14:45. FINDINGS: Bones: No fractures or dislocations. No suspicious bony lesions. Soft tissues: No joint effusion. No suspicious soft tissue calcifications. IMPRESSION: Expected appearance after right total knee arthroplasty without evidence of acute trauma. Dictated by: Terrence Sanches M.D. on 01/27/2020 at 8:58 Approved by: Terrence Sanches M.D. on 01/27/2020 at 8:59
--- NOTE | 2020-01-26 22:06 | DI.RAD.S_ITS ---
PROCEDURE: XR HIP W PEL IF DONE RT 2V INDICATIONS: right hip pain after fall TECHNIQUE: AP pelvis with lateral view(s) of the right hip(s). COMPARISON: [facility], , XR HIP W PEL IF DONE RT 2V, 03/04/2019, 0:54. FINDINGS: Bones: No fractures or dislocations. Pelvic ring appears intact. No suspicious bony lesions. Soft tissues: The visualized bowel gas pattern is normal. No suspicious soft tissue calcifications. IMPRESSION: There is a moderate degree and bilateral hip joint osteoarthritis slightly greater on the right than the left as has been previously the kidneys. No acute trauma. Dictated by: Terrence Sanches M.D. on 01/27/2020 at 9:00 Approved by: Terrence Sanches M.D. on 01/27/2020 at 9:00
--- NOTE | 2020-01-26 22:06 | DI.CT.S_ITS ---
PROCEDURE: CT CERVICAL SPINE WO CON INDICATIONS: fall, no neck pain TECHNIQUE: Noncontrast 3 mm thick sections acquired from the skull base to the T4 level. Sagittal and coronal reformats were then constructed. For radiation dose reduction, the following was used: automated exposure control, adjustment of mA and/or kV according to patient size. COMPARISON: None. FINDINGS: Image quality: Excellent. Bones: No fractures or dislocations. Relatively prominent degenerative disc disease and facet osteoarthritis over the middle third of the cervical spine. No traumatic subluxation. Visualized superior ribs are intact. Soft tissues: Prevertebral soft tissues are normal in thickness. No paravertebral hematomas. No apical pneumothoraces. Bilateral thyroid nodularity. IMPRESSION: No trauma found. Moderately severe degenerative disc disease and mild to moderate facet osteoarthritis of the middle third of the cervical spine to the degree that spinal and foraminal stenosis likely is present. Incidental mode is made of nodularity the thyroid gland bilaterally, which could be further assessed by thyroid ultrasound electively. Note: These findings are concordant with the preliminary interpretation. Dictated by: Terrence Sanches M.D. on 01/27/2020 at 8:56 Approved by: Terrence Sanches M.D. on 01/27/2020 at 8:58
[2020-01-26 22:53] LABS: Bilirubin Urine UA NEGATIVE (NEGATIVE); Color Urine UA YELLOW; Glucose Urine UA 2+ g/dL (Negative); Ketones Urine UA NEGATIVE (NEGATIVE); Leukocyte Esterase Urine UA 1+ (NEGATIVE); Nitrite Urine UA NEGATIVE (Negative); Occult Blood Urine UA TRACE-LYSED (Negative); Protein Urine UA NEGATIVE (Negative); RBC Urine None Seen (0-5/HPF); Urobilinogen Urine UA 0.2 E.U./dL (0.2)
[2020-01-26 22:56] LABS: Appearance Urine UA Slightly Cloudy; Squamous Epithelial Cell Urine 1-5 /HPF (0-5/HPF); WBC Urine 30-100/HPF (0-5/HPF)
[2020-01-26] MEDS: TRAMADOL 50 MG TABLET PO (22:56)
[2020-01-26 22:57] LABS: Bacteria Urine Few (2-10); Culture Indicated Urine Specimen Cultured
[2020-01-27] VITALS (7 sets, daily range): BP systolic 102–150; BP diastolic 50–99; PULSE 51–64; RESP 16; O2SAT 94–98
[2020-01-27] MEDS: TRAMADOL 50 MG TABLET PO (06:25)
== END 2020-01-27 07:31 | disposition home or self-care (01) ==
PROVIDERS: Emergency Provider Emergency Medicine; PCP Internal Medicine
DX: S00.03XA Contusion of scalp, initial encounter (principal); M25.551 Pain in right hip; M25.561 Pain in right knee; E04.1 Nontoxic single thyroid nodule; Z79.01 Long term (current) use of anticoagulants; E78.5 Hyperlipidemia, unspecified; I10 Essential (primary) hypertension; E66.01 Morbid (severe) obesity due to excess calories; W18.30XA Fall on same level, unspecified, initial encounter
CPT/HCPCS: 70450; 72125; 73502; 73562; 81001; 87086; 99284

== ENCOUNTER 2020-02-03 19:25 | Emergency (ER) | payer MEDICARE, MEDICAID, SELFPAY ==
--- NOTE | 2020-02-03 19:28 | DI.CT.S_ITS ---
PROCEDURE: CT HEAD/BRAIN WO CON INDICATIONS: mental status change, recent fall with head injury, thinners TECHNIQUE: Noncontrast 4.5 mm thick angled axial sections acquired from the foramen magnum to the vertex, with coronal and sagittal reformats. For radiation dose reduction, the following was used: automated exposure control, adjustment of mA and/or kV according to patient size. COMPARISON: [facility], CT, CT HEAD/BRAIN WO CON, 01/26/2020, 22:22. FINDINGS: Image quality: Excellent. CSF spaces: Basal cisterns are patent. No extra-axial fluid collections. The ventricles are symmetric in size and shape. Brain: No intracranial bleeds or masses. There is cerebral volume loss for age, with resultant ventricular and sulcal prominence. There are periventricular and deep white matter chronic small vessel ischemic changes. There is intracranial internal carotid artery atherosclerosis. Skull and face: Calvarium and visualized facial bones appear intact, without suspicious lesions. Sinuses: Visualized sinuses and mastoids are clear. IMPRESSION: 1. No acute intracranial process. 2. Moderate atrophy and chronic microvascular ischemic changes. Dictated by: Kayla Erickson M.D. on 02/03/2020 at 19:50 Approved by: Kayla Erickson M.D. on 02/03/2020 at 19:50
[2020-02-03 19:30] VITALS: BP 158/67; PULSE 74; RESP 19; TEMP 36.9; O2SAT 95
--- NOTE | 2020-02-03 19:53 | ED_ITS ---
HPI - Altered Mental Status General Chief Complaint: Weakness Time Seen by Provider: 02/03/20 19:26 Source: patient and EMS Mode of arrival: EMS Limitations: no limitations History of Present Illness HPI narrative: 79F former smoker with history of CVA ib leslee presents with the chief complaint of mental status changer per her facility. She was seen and evaluated she suffered a fall and hematoma of the scalp. She had a CT which was unremarkable and she was sent back. Per staff she has been acting different than her baseline and she was sent for evaluation and likely repeat scan. She has no fever chills and no reported vomiting or other neurologic findings. She has no chest pain, shortness of breath, cough. She has had no nausea, vomiting or diarrhea. She has had no abdominal pain. She denies any symptoms whatsoever and just wants to go home. MD complaint: altered mental status Onset (ago): day(s) Severity: mild Consistency of symptoms: unknown Context: history of similar presentation and trauma Associated symptoms: denies other symptoms Related Data Home Medications Medication Instructions Recorded Confirmed Flovent Diskus 100 mcg INH BIDP PRN #0 09/08/16 09/02/19 lamotrigine [Lamictal] 300 mg PO DAILY #0 09/08/16 09/02/19 atorvastatin 40 mg PO BEDTIME #0 01/18/18 09/02/19 erythromycin 0.5 inch EYE-LEFT BEDTIME 08/08/18 09/02/19 latanoprost 1 drp EYE-RIGHT BEDTIME 08/08/18 09/02/19 Eucerin Original 1 applic TOPICAL BID 08/13/18 09/02/19 ammonium lactate 1 applic TOPICAL BID #0 08/13/18 09/02/19 cholecalciferol (vitamin D3) 1,000 unit PO BEDTIME 08/13/18 09/02/19 [Vitamin D3] glipizide 10 mg PO BID 08/13/18 09/02/19 Lantus Solostar U-100 Insulin 26 unit SUBCUT BID 03/07/19 09/02/19 acetaminophen 650 mg PO Q6H PRN 03/07/19 09/02/19 albuterol sulfate [ProAir HFA] 2 puff INHALATION Q4H PRN 03/07/19 09/02/19 lorazepam [Ativan] 1 mg PO Q4HR PRN 03/07/19 09/02/19 nystatin 1 applic TOPICAL TID PRN 03/08/19 09/02/19 Eliquis 2.5 mg PO BID 03/24/19 09/02/19 insulin lispro [Humalog KwikPen 1 dose SUBCUT TID 03/24/19 09/02/19 Insulin] gabapentin 300 mg PO BID 03/28/19 09/02/19 lidocaine 1 patch TOPICAL DAILY 03/28/19 09/02/19 polyethylene glycol 3350 17 g PO DAILY 09/02/19 09/02/19 quetiapine 25 mg PO BEDTIME 09/02/19 09/02/19 quetiapine 50 mg PO BEDTIME 09/02/19 09/02/19 sertraline 25 mg PO DAILY 09/02/19 09/02/19 torsemide 20 mg PO DAILY 09/02/19 09/02/19 tramadol 50 mg PO BEDTIME 09/02/19 09/02/19 tramadol 50 mg PO PRN PRN 09/02/19 09/02/19 Previous Rx's Medication Instructions Recorded doxycycline hyclate 100 mg PO BID #14 cap 09/03/19 insulin aspart U-100 [Novolog 5 unit SUBCUT AC #15 ml 09/03/19 Flexpen U-100 Insulin] Allergies Allergy/AdvReac Type Severity Reaction Status Date / Time Iodine and Iodide Containing Allergy Intermediate i get Verified 02/03/20 19:39 Produc spots all [IODINE AND IODIDE over my CONTAINING PRODUC] body Penicillins [PENICILLINS] Allergy Intermediate makes my Verified 02/03/20 19:39 bones and joints ache aspirin [ASPIRIN] Allergy Unknown Verified 02/03/20 19:39 meclizine [MECLIZINE] Allergy Unknown Verified 02/03/20 19:39 codeine [CODEINE] AdvReac Unknown gives me Verified 02/03/20 19:39 bloody nightmares potassium [POTASSIUM] AdvReac Unknown Verified 02/03/20 19:39 Review of Systems Constitutional Constitutional: Denies chills, Denies fatigue, Denies fever(s), Denies frequent falls, Denies lethargy and Denies weakness Eyes Eyes: Denies change in vision, Denies eye discharge, Denies irritation and Denies loss of vision ENT Ears, Nose, Mouth, and Throat: Denies change in voice, Denies dizziness, Denies neck pain, Denies sore throat and Denies throat swelling Cardiovascular Cardiovascular: Denies chest pain, Denies irregular heart rhythm, Denies lightheadedness, Denies palpitations, Denies dyspnea, Denies dyspnea on exertion and Denies orthopnea Respiratory Respiratory: Denies cough, Denies dyspnea, Denies dyspnea on exertion and Denies wheezing Gastrointestinal Gastrointestinal: Denies abdominal pain, Denies change in bowel habits, Denies diarrhea, Denies nausea and Denies vomiting Genitourinary Genitourinary: Denies hematuria, Denies flank pain, Denies urinary incontinence and Denies urinary urgency Musculoskeletal Musculoskeletal: Denies back pain, Denies muscle weakness, Denies neck pain, Denies numbness and Denies tingling Integumentary/Breasts Skin/Breast: Denies pruritus, Denies erythema, Denies rash and Denies wounds Neurologic Neurologic: Denies behavioral changes, Denies confusion, Denies dizziness, Denies frequent falls, Denies loss of vision, Denies numbness, Denies tingling and Denies weakness Psychiatric Psychiatric: Denies anxiety, Denies behavioral changes, Denies confusion, Denies depression, Denies homicidal ideation and Denies suicidal ideation Endocrine Endocrine: Denies fatigue, Denies flushing and Denies palpitations Hematologic/Lymphatic Hematologic/Lymphatic: Denies easy bruising Allergic/Immunologic Allergic/Immunologic: Denies urticaria, Denies throat swelling and Denies wheezing Patient History Medical History Asthma (Acute) Bronchitis (Acute) Cataract (Acute) Chronic anticoagulation (Acute) Chronic pain (Acute) Chronic renal failure, stage 4 (severe) (Acute) CVA (cerebral vascular accident) (Acute) Depression (Acute) Diabetes (Acute) Diabetic neuropathy (Acute) Diabetic retinopathy (Acute) Hypertension (Acute) Lower extremity edema (Acute) Morbid obesity (Acute) PTSD (post-traumatic stress disorder) (Acute) Pulmonary embolism (Acute) Vitreous hemorrhage of left eye due to diabetes mellitus (Acute) Surgical History H/O: hysterectomy (Acute) Hx of appendectomy (Acute) Hx of tonsillectomy (Acute) Hx of total knee arthroplasty (Acute) Status post cataract extraction and insertion of intraocular lens of right eye (Acute) Family History Mother No known health problems Father Lung cancer Sister Lung cancer Tobacco dependence Social History household members: caregiver Smoking Status: Former smoker alcohol intake: former Smoking Status: Former smoker alcohol intake frequency: holidays/special occasions only Substance Use Type: former substance user Exam Narrative Exam Narrative: GENERAL: [79] year old patient appears stated age. Well- nourished, well-developed patient, in no obvious distress, just wants to go home. HEAD: Atraumatic. Normocephalic. EYES: Pupils equal round and reactive. Extraocular motions intact. No scleral icterus. No injection or drainage. ENT: Nose without bleeding, purulent drainage. Throat without erythema, tonsillar hypertrophy or exudate. Airway patent. NECK: Trachea midline. Non tender CARDIOVASCULAR: Regular rate and rhythm without murmurs, gallops, or rubs. RESPIRATORY: Clear to auscultation. Breath sounds equal bilaterally. No wheezes, rales, or rhonchi. GASTROINTESTINAL: Abdomen soft, non-tender, nondistended. EXTREMITIES: No edema or joint tenderness. BACK: Nontender without deformity or crepitance. No flank tenderness. NEURO: AOx3. SKIN: No rash or erythema of visible areas Initial Vital Signs Initial Vital Signs: Vital Signs Temperature 98.4 F 02/03/20 19:30 Pulse Rate 74 02/03/20 19:30 Respiratory Rate 19 02/03/20 19:30 Blood Pressure 158/67 H 02/03/20 19:30 Pulse Oximetry 95 02/03/20 19:30 Course Orders Ordered: ED Orders 02/03/20 19:28 CT head/brain wo con Stat 02/03/20 19:48 Complete Blood Count AUTO DIFF Stat Comprehensive Metabolic Panel Stat Magnesium Stat Procalcitonin Stat Troponin & CK Cardiac Panel Stat Discontinued Medications Sodium Chloride (Normal Saline 0.9%) 1,000 mls @ 125 mls/hr IV CONT ORSI Last Infusion: 02/03/20 20:45 Dose: 0 mls/hr Documented by: Admin: 02/03/20 19:54 Dose: 125 mls/hr Documented by: LOVE Vital Signs Vital signs: Vital Signs - 8 hr 02/03/20 19:30 02/03/20 22:28 Temperature 98.4 F 97.6 F Pulse Rate 74 67 Respiratory Rate 19 18 Blood Pressure 158/67 H 105/55 L Pulse Oximetry 95 97 MDM - Altered Mental Status Lab Data Result diagrams: 02/03/20 19:48 02/03/20 19:48 Labs: Lab Results 02/03/20 02/03/20 02/03/20 Range/Units 19:48 19:48 19:48 WBC 7.1 (4.5-11.0) X10^3/uL RBC 4.48 (4.0-5.2) X10^6/uL Hgb 13.4 (12.0-16.0) g/dL Hct 39.5 (36-46) % MCV 88.2 (80-100) fL MCH 30.0 (26-34) PG MCHC 34.0 (30-36) % RDW 14.6 (11.6-14.8) % Plt Count 228 (150-400) X10^3/uL Neut % (Auto) 60.6 (50-75) % Lymph % (Auto) 27.7 (25-40) % Custer % (Auto) 7.1 (3-14) % Eos % (Auto) 3.6 (2-4) % Baso % (Auto) 1.0 (0-2) % Neut # (Auto) 4300 (5063-0371) /uL Lymph # (Auto) 2000 (9348-7239) /uL Custer # (Auto) 500 (0-900) /uL Eos # (Auto) 300 (0-450) /uL Baso # (Auto) 100 (0-100) /uL Sodium 140 (137-145) mmol/L Potassium 3.9 (3.4-5.1) mmol/L Chloride 104 (98-107) mmol/L Carbon Dioxide 31 (22-32) mmol/L BUN 26 H (7-17) mg/dL Creatinine 1.88 H (0.52-1.04) mg/dL Estimated GFR 25.9 L (>60) mL/min BUN/Creatinine Ratio 13.8 (6-22) Glucose 200 H (80-110) mg/dL Calcium 10.5 H (8.4-10.2) mg/dL Magnesium 2.2 (1.6-2.3) mg/dL Total Bilirubin 0.4 (0.2-1.3) mg/dL AST 27 (14-36) IU/L ALT 18 (<35) IU/L Alkaline Phosphatase 135 H (38-126) U/L Total Creatine Kinase 50 (30-135) U/L CK-MB (CK-2) TNP CK-MB (CK-2) Rel Index TNP Troponin I 0.016 (0.01-0.034) ng/mL Total Protein 7.3 (6.3-8.2) g/dL Albumin 3.8 (3.5-5.0) g/dL Globulin 3.5 (1.7-4.1) g/dL Albumin/Globulin Ratio 1.1 (1.0-2.8) Procalcitonin 0.13 (<0.5) ng/mL Imaging Data CT scan - head: Radiologist's Impression: Chart Viewer Diagnostics DATE TYPE STATUS AUTHOR Hx 02/03/20 19:28 Kayla Erickson 01/26/20 22:06 Terrence Sanches 01/26/20 22:06 Terrence Sanches 01/26/20 22:06 Terrence Sanches 01/26/20 22:06 Terrence Sanches 09/10/19 21:51 Shakeel Gupta 09/02/19 17:41 Lokesh Rios 06/17/19 00:00 Terrence Sanches 06/09/19 00:00 Terrence Sanches 05/28/19 00:00 Terrence Sanches 04/07/19 10:41 Ayleen Zhang 04/06/19 23:33 Shakeel Gupta 04/06/19 23:30 03/28/19 09:09 Matthew Shi 03/25/19 00:00 Capo Maya 03/24/19 14:30 Romana Nicole 03/07/19 19:55 Huseyin Leal 03/07/19 19:55 Huseyin Leal 03/04/19 01:38 Tra Galeana 03/04/19 00:46 Shakeel Gupta 03/04/19 00:46 Shakeel Gupta 03/04/19 00:45 Tra Galeana 11/28/18 00:00 Ramses Araujo 09/12/18 00:00 Tra Galeana 08/08/18 04:33 08/08/18 03:13 Tra Galeana 08/08/18 03:07 Tra Galeana 08/08/18 00:00 Naif Stark 08/06/18 15:59 Tamela Del Cid 08/06/18 15:59 Tamela Del Cid Judy F 79, F0 1940 [facility] 123.967kg Weakness Search Chart No Data to Display i get spots all over my body makes my bones and joints ache gives me bloody nightmares ONSET Today 22:28 Cassie Solares 79 F [address] [address] [address] Scan Report Signed Patient: Cassie Solares FMR#: [id number] : [id number] Age/Sex: 79 / FDate of Service: 02/03/20 Loc: ED Accession Number: [id number] Procedure: CT head/brain wo con Ordering Provider: Yann Bess D.O. PROCEDURE: CT HEAD/BRAIN WO CON INDICATIONS: mental status change, recent fall with head injury, thinners TECHNIQUE: Noncontrast 4.5 mm thick angled axial sections acquired from the foramen magnum to the vertex, with coronal and sagittal reformats. For radiation dose reduction, the following was used: automated exposure control, adjustment of mA and/or kV according to patient size. COMPARISON: [facility], CT, CT HEAD/BRAIN WO CON, 01/26/2020, 22:22. FINDINGS: Image quality: Excellent. CSF spaces: Basal cisterns are patent. No extra-axial fluid collections. The ventricles are symmetric in size and shape. Brain: No intracranial bleeds or masses. There is cerebral volume loss for age, with resultant ventricular and sulcal prominence. There are periventricular and deep white matter chronic small vessel ischemic changes. There is intracranial internal carotid artery atherosclerosis. Skull and face: Calvarium and visualized facial bones appear intact, without suspicious lesions. Sinuses: Visualized sinuses and mastoids are clear. IMPRESSION: 1. No acute intracranial process. 2. Moderate atrophy and chronic microvascular ischemic changes. Dictated by: Kayla Erickson, M.D. on 02/03/2020 at 19:50 Approved by: Kayla Erickson M.D. on 02/03/2020 at 19:50 Discharge Plan Departure Patient Disposition: Home Clinical Impression: Contusion of scalp Qualifiers: Encounter type: initial encounter Qualified Code(s): S00.03XA - Contusion of scalp, initial encounter Discharge Date/Time: 02/03/20 22:33 Instructions: DI for Contusion Activity Restrictions/Additional Instructions: *You have been diagnosed with [scalp hematoma ] *What to do: *Take medications as directed *Follow up with your primary care provider in 2-3 days, call for an appointment. Let them know you were seen in the Emergency Department and that we ask that you be seen in follow up *Return to ER if you should have any new, worsening or concerning symptoms Prescriptions: No Action lamotrigine [Lamictal] 100 MG tablet 300 mg PO DAILY Qty: 0 RF: 0 Flovent Diskus 100 MCG blister with device 100 mcg INH BIDP PRN (Reason: asthma) Qty: 0 RF: 0 atorvastatin 40 MG tablet 40 mg PO BEDTIME Qty: 0 RF: 0 latanoprost 0.005 % Drops 1 drp EYE-RIGHT BEDTIME RF: 0 erythromycin 5 mg/gram (0.5 %) Ointment 0.5 inch EYE-LEFT BEDTIME RF: 0 ammonium lactate 12 % Lotion 1 applic TOPICAL BID Qty: 0 RF: 0 glipizide 10 mg Tablet 10 mg PO BID RF: 0 Eucerin Original Lotion 1 applic TOPICAL BID RF: 0 cholecalciferol (vitamin D3) [Vitamin D3] 1,000 unit Tablet 1,000 unit PO BEDTIME RF: 0 acetaminophen 325 mg Tablet 650 mg PO Q6H PRN (Reason: PAIN) RF: 0 lorazepam [Ativan] 1 mg Tablet 1 mg PO Q4HR PRN (Reason: behaviours) RF: 0 albuterol sulfate [ProAir HFA] 90 mcg/actuation Hfa Aerosol Inhaler 2 puff INHALATION Q4H PRN (Reason: asthma) RF: 0 Lantus Solostar U-100 Insulin 100 unit/mL (3 mL) Insulin Pen 26 unit SUBCUT BID RF: 0 nystatin 100,000 unit/gram Powder 1 applic TOPICAL TID PRN (Reason: Skin Irritation) RF: 0 insulin lispro [Humalog KwikPen Insulin] 100 unit/mL Insulin Pen 1 dose subcut TID RF: 0 Eliquis 2.5 mg Tablet 2.5 mg PO BID RF: 0 tramadol 50 mg Tablet 50 mg PO PRN PRN (Reason: PAIN) RF: 0 quetiapine 50 mg Tablet 50 mg PO BEDTIME RF: 0 quetiapine 25 mg tablet 25 mg PO BEDTIME RF: 0 tramadol 50 mg tablet 50 mg PO BEDTIME RF: 0 torsemide 20 mg Tablet 20 mg PO DAILY RF: 0 polyethylene glycol 3350 17 gram Powder In Packet 17 g PO DAILY RF: 0 sertraline 25 mg Tablet 25 mg PO DAILY RF: 0 Novolog Flexpen U-100 Insulin 100 unit/mL (3 mL) Insulin Pen 5 unit subcut AC Qty: 15 RF: 0 doxycycline hyclate 100 mg capsule 100 mg PO BID Qty: 14 RF: 0 lidocaine 4 % Adhesive Patch,Medicated 1 patch TOPICAL DAILY RF: 0 gabapentin 300 mg Capsule 300 mg PO BID RF: 0 Referrals: Danielle Rodriguez MD [Primary Care Provider] -
[2020-02-03] MEDS: SODIUM CHLORIDE 0.9% 1,000 ML 125 ML IV (19:54)
[2020-02-03 19:55] LABS: Add Manual Diff / Slide Review NO; Basophils Absolute Auto 100 /uL (0-100); Eosinophils Absolute Auto 300 /uL (0-450); Eosinophils Percent Auto 3.6 % (2-4); Hematocrit 39.5 % (36-46); Hemoglobin 13.4 g/dL (12.0-16.0); Lymphocytes Absolute Auto 2000 /uL (1100-4500); Lymphocytes Percent Auto 27.7 % (25-40); Mean Corpuscular Volume 88.2 fL (80-100); Monocytes Absolute Auto 500 /uL (0-900); Monocytes Percent Auto 7.1 % (3-14); Neutrophils Absolute Auto 4300 /uL (1500-7000); Neutrophils Percent Auto 60.6 % (50-75); Platelet Count 228 X10^3/uL (150-400); Red Blood Cell Count 4.48 X10^6/uL (4.0-5.2); Red Cell Distribution Width 14.6 % (11.6-14.8); White Blood Cell Count 7.1 X10^3/uL (4.5-11.0)
[2020-02-03 20:09] LABS: Alanine Aminotransferase 18 IU/L (<35); Albumin 3.8 g/dL (3.5-5.0); Albumin Globulin Ratio 1.1 (1.0-2.8); Alkaline Phosphatase 135 U/L (38-126); Aspartate Aminotransferase 27 IU/L (14-36); BUN Creatinine Ratio 13.8 (6-22); Bilirubin Total 0.4 mg/dL (0.2-1.3); Blood Urea Nitrogen 26 mg/dL (7-17); Calcium 10.5 mg/dL (8.4-10.2); Carbon Dioxide 31 mmol/L (22-32); Chloride 104 mmol/L (98-107); Creatine Kinase 50 U/L (30-135); Estimated Glomerular Filt Rate 25.9 mL/min (>60); Globulin 3.5 g/dL (1.7-4.1); Glucose 200 mg/dL (80-110); HEMOLYSIS < 15 (0-50); Magnesium 2.2 mg/dL (1.6-2.3); Potassium 3.9 mmol/L (3.4-5.1); Sodium 140 mmol/L (137-145); Total Protein 7.3 g/dL (6.3-8.2)
[2020-02-03 20:21] LABS: Troponin I 0.016 ng/mL (0.01-0.034)
[2020-02-03 20:24] LABS: Procalcitonin 0.13 ng/mL (<0.5)
[2020-02-03 22:28] VITALS: BP 105/55; PULSE 67; RESP 18; TEMP 36.4; O2SAT 97
== END 2020-02-03 22:33 | disposition home or self-care (01) ==
PROVIDERS: Emergency Provider Emergency Medicine; PCP Internal Medicine
DX: S00.03XA Contusion of scalp, initial encounter (principal); W19.XXXA Unspecified fall, initial encounter; R41.82 Altered mental status, unspecified
CPT/HCPCS: 36415; 70450; 80053; 82550; 83735; 84145; 84484; 85025; 96360; 99284

== ENCOUNTER → 2020-03-15 09:59 | Outpatient (ROUT) | payer MEDICARE, MEDICAID, SELFPAY ==
[2020-03-15 10:40] LABS: Add Manual Diff / Slide Review NO; Basophils Absolute Auto 100 /uL (0-100); Basophils Percent Auto 0.7 % (0-2); Eosinophils Absolute Auto 300 /uL (0-450); Hemoglobin 13.4 g/dL (12.0-16.0); Lymphocytes Absolute Auto 1700 /uL (1100-4500); Lymphocytes Percent Auto 19.7 % (25-40); Mean Corpuscular HGB Conc 34.5 % (30-36); Mean Corpuscular Hemoglobin 30.1 PG (26-34); Mean Corpuscular Volume 87.2 fL (80-100); Monocytes Absolute Auto 600 /uL (0-900); Monocytes Percent Auto 6.4 % (3-14); Neutrophils Absolute Auto 6200 /uL (1500-7000); Neutrophils Percent Auto 70.2 % (50-75); Platelet Count 252 X10^3/uL (150-400); Red Blood Cell Count 4.47 X10^6/uL (4.0-5.2); Red Cell Distribution Width 14.7 % (11.6-14.8); White Blood Cell Count 8.8 X10^3/uL (4.5-11.0)
[2020-03-15 11:01] LABS: BUN Creatinine Ratio 12.4 (6-22); Blood Urea Nitrogen 25 mg/dL (7-17); Calcium 10.5 mg/dL (8.4-10.2); Carbon Dioxide 30 mmol/L (22-32); Chloride 96 mmol/L (98-107); Estimated Glomerular Filt Rate 23.8 mL/min (>60); Glucose 299 mg/dL (80-110); HEMOLYSIS < 15 (0-50); Potassium 3.7 mmol/L (3.4-5.1); Sodium 137 mmol/L (137-145)
[2020-03-15 11:09] LABS: Hemoglobin A1C% w Est Avg Glu 9.6 % (4.0-6.0)
[2020-03-15 11:50] LABS: Vitamin B12 341 pg/mL (239-931)
== END ==
PROVIDERS: PCP Internal Medicine; Visit Provider Nurse Practitioner Family
DX: R45.1 Restlessness and agitation (principal); N18.9 Chronic kidney disease, unspecified; E11.3219 Type 2 diabetes mellitus with mild nonproliferative diabetic retinopathy with macular edema, unspecified eye; E87.6 Hypokalemia
CPT/HCPCS: 36415; 80048; 82607; 83036; 84443; 85025

== ENCOUNTER → 2020-05-31 07:59 | Outpatient (ROUT) | payer MEDICARE, MEDICAID, SELFPAY ==
[2020-05-31 09:25] LABS: BUN Creatinine Ratio 13.1 (6-22); Blood Urea Nitrogen 28 mg/dL (7-17); Calcium 10.2 mg/dL (8.4-10.2); Carbon Dioxide 31 mmol/L (22-32); Chloride 103 mmol/L (98-107); Estimated Glomerular Filt Rate 22.3 mL/min (>60); Glucose 123 mg/dL (80-110); HEMOLYSIS 22 (0-50); Potassium 3.7 mmol/L (3.4-5.1); Sodium 138 mmol/L (137-145)
== END ==
PROVIDERS: PCP Internal Medicine; Visit Provider Nurse Practitioner Gerontology
DX: E87.6 Hypokalemia (principal)
CPT/HCPCS: 36415; 80048

== ENCOUNTER → 2020-06-02 07:37 | Outpatient (ROUT) | payer MEDICARE, MEDICAID, SELFPAY ==
[2020-06-02 08:30] LABS: Alanine Aminotransferase 24 IU/L (<35); Albumin 3.7 g/dL (3.5-5.0); Albumin Globulin Ratio 1.2 (1.0-2.8); Alkaline Phosphatase 122 U/L (38-126); Aspartate Aminotransferase 42 IU/L (14-36); BUN Creatinine Ratio 13.3 (6-22); Bilirubin Total 0.7 mg/dL (0.2-1.3); Blood Urea Nitrogen 31 mg/dL (7-17); Calcium 10.3 mg/dL (8.4-10.2); Carbon Dioxide 29 mmol/L (22-32); Chloride 103 mmol/L (98-107); Estimated Glomerular Filt Rate 20.2 mL/min (>60); Glucose 222 mg/dL (80-110); HEMOLYSIS < 15 (0-50); Magnesium 2.2 mg/dL (1.6-2.3); Potassium 3.5 mmol/L (3.4-5.1); Sodium 138 mmol/L (137-145); Total Protein 6.7 g/dL (6.3-8.2)
== END ==
PROVIDERS: PCP Internal Medicine; Visit Provider Nurse Practitioner Gerontology
DX: Z79.899 Other long term (current) drug therapy (principal); R25.2 Cramp and spasm
CPT/HCPCS: 36415; 80053; 83735

== ENCOUNTER → 2020-06-16 07:37 | Outpatient (ROUT) | payer MEDICARE, MEDICAID, SELFPAY ==
[2020-06-16 07:51] LABS: BUN Creatinine Ratio 17.6 (6-22); Blood Urea Nitrogen 36 mg/dL (7-17); Calcium 9.9 mg/dL (8.4-10.2); Carbon Dioxide 29 mmol/L (22-32); Chloride 102 mmol/L (98-107); Estimated Glomerular Filt Rate 23.4 mL/min (>60); Glucose 273 mg/dL (80-110); HEMOLYSIS 16 (0-50); Potassium 3.9 mmol/L (3.4-5.1); Sodium 137 mmol/L (137-145)
== END ==
PROVIDERS: PCP Internal Medicine; Visit Provider Nurse Practitioner Family
DX: N18.9 Chronic kidney disease, unspecified (principal)
CPT/HCPCS: 80048

== ENCOUNTER 2020-08-13 09:45 | Emergency (ER) | payer MEDICARE, MEDICAID, SELFPAY ==
[2020-08-13 09:47] VITALS: PULSE 85; O2SAT 96
[2020-08-13 09:51] VITALS: BP 165/75; PULSE 85; RESP 12; TEMP 36.9; O2SAT 96; BMI 49.1
[2020-08-13 10:00] VITALS: BP 160/63; PULSE 82; O2SAT 96
[2020-08-13 10:20] LABS: Appearance Urine UA CLOUDY; Bilirubin Urine UA NEGATIVE (NEGATIVE); Color Urine UA YELLOW; Glucose Urine UA 2+ g/dL (Negative); Ketones Urine UA NEGATIVE (NEGATIVE); Leukocyte Esterase Urine UA 2+ (NEGATIVE); Nitrite Urine UA NEGATIVE (Negative); Occult Blood Urine UA 2+ (Negative); Protein Urine UA 1+ (Negative); Urobilinogen Urine UA 0.2 E.U./dL (0.2); pH Urine UA 6.5 (4.5-8.0)
[2020-08-13 10:30] VITALS: BP 164/74; PULSE 77; O2SAT 96
[2020-08-13 10:32] LABS: Bacteria Urine Few (2-10); Culture Indicated Urine Specimen Cultured; RBC Urine 1-5/HPF (0-5/HPF); WBC Urine >100/HPF (0-5/HPF)
--- NOTE | 2020-08-13 10:36 | ED_ITS ---
HPI - Back Pain/Injury General Chief Complaint: Back Pain/Injury Stated Complaint: Low Back Pain Time Seen by Provider: 08/13/20 09:49 Source: EMS Mode of arrival: EMS Limitations: no limitations History of Present Illness HPI Narrative: 80-year-old female former smoker with history of stroke on Eliquis complains of lower back pain that was not helped by her chronic meds. She denies any falls or known injury. She states that the pain seems to be worse when she moves and improves with rest. She denies any radiation of the pain. She denies any trouble with control of bowel or bladder. She normally takes Ultram, which she took this morning it did not help hence her decision to come to the emergency department. She does complain of burning and frequency of urination. MD Complaint: back pain Onset (ago): minute(s) Duration: constant Similar Symptoms Previously: Yes Location: lumbar spine Severity: moderate Quality: burning, sharp and aching Radiation: none Exacerbating factors: movement Associated symptoms: increased urinary frequency Related Data Home Medications Medication Instructions Recorded Confirmed Flovent Diskus 100 mcg INH BIDP PRN #0 09/08/16 09/02/19 lamotrigine [Lamictal] 300 mg PO DAILY #0 09/08/16 09/02/19 atorvastatin 40 mg PO BEDTIME #0 01/18/18 09/02/19 erythromycin 0.5 inch EYE-LEFT BEDTIME 08/08/18 09/02/19 latanoprost 1 drp EYE-RIGHT BEDTIME 08/08/18 09/02/19 Eucerin Original 1 applic TOPICAL BID 08/13/18 09/02/19 ammonium lactate 1 applic TOPICAL BID #0 08/13/18 09/02/19 cholecalciferol (vitamin D3) 1,000 unit PO BEDTIME 08/13/18 09/02/19 [Vitamin D3] glipizide 10 mg PO BID 08/13/18 09/02/19 Lantus Solostar U-100 Insulin 26 unit SUBCUT BID 03/07/19 09/02/19 acetaminophen 650 mg PO Q6H PRN 03/07/19 09/02/19 albuterol sulfate [ProAir HFA] 2 puff INHALATION Q4H PRN 03/07/19 09/02/19 lorazepam [Ativan] 1 mg PO Q4HR PRN 03/07/19 09/02/19 nystatin 1 applic TOPICAL TID PRN 03/08/19 09/02/19 Eliquis 2.5 mg PO BID 03/24/19 09/02/19 insulin lispro [Humalog KwikPen 1 dose SUBCUT TID 03/24/19 09/02/19 Insulin] gabapentin 300 mg PO BID 03/28/19 09/02/19 lidocaine 1 patch TOPICAL DAILY 03/28/19 09/02/19 polyethylene glycol 3350 17 g PO DAILY 09/02/19 09/02/19 quetiapine 25 mg PO BEDTIME 09/02/19 09/02/19 quetiapine 50 mg PO BEDTIME 09/02/19 09/02/19 sertraline 25 mg PO DAILY 09/02/19 09/02/19 torsemide 20 mg PO DAILY 09/02/19 09/02/19 tramadol 50 mg PO BEDTIME 09/02/19 09/02/19 tramadol 50 mg PO PRN PRN 09/02/19 09/02/19 Previous Rx's Medication Instructions Recorded doxycycline hyclate 100 mg PO BID #14 cap 09/03/19 insulin aspart U-100 [Novolog 5 unit SUBCUT AC #15 ml 09/03/19 Flexpen U-100 Insulin] cephalexin [Keflex] 500 mg PO QID 5 Days #20 cap 08/13/20 Allergies Allergy/AdvReac Type Severity Reaction Status Date / Time Iodine and Iodide Containing Allergy Intermediate i get Verified 02/03/20 19:39 Produc spots all [IODINE AND IODIDE over my CONTAINING PRODUC] body Penicillins [PENICILLINS] Allergy Intermediate makes my Verified 02/03/20 19:39 bones and joints ache aspirin [ASPIRIN] Allergy Unknown Verified 02/03/20 19:39 meclizine [MECLIZINE] Allergy Unknown Verified 02/03/20 19:39 codeine [CODEINE] AdvReac Unknown gives me Verified 02/03/20 19:39 bloody nightmares potassium [POTASSIUM] AdvReac Unknown Verified 02/03/20 19:39 Review of Systems Constitutional Constitutional: Denies chills, Denies fatigue, Denies fever(s), Denies frequent falls, Denies lethargy and Denies weakness Eyes Eyes: Denies change in vision, Denies eye discharge, Denies irritation and Denies loss of vision ENT Ears, Nose, Mouth, and Throat: Denies change in voice, Denies dizziness, Denies neck pain, Denies sore throat and Denies throat swelling Cardiovascular Cardiovascular: Denies chest pain, Denies irregular heart rhythm, Denies lightheadedness, Denies palpitations, Denies dyspnea, Denies dyspnea on exertion and Denies orthopnea Respiratory Respiratory: Denies cough, Denies dyspnea, Denies dyspnea on exertion and Denies wheezing Gastrointestinal Gastrointestinal: Denies abdominal pain, Denies change in bowel habits, Denies d iarrhea, Denies nausea and Denies vomiting Genitourinary Genitourinary: Reports dysuria Genitourinary: Reports dysuria Musculoskeletal Musculoskeletal: Reports back pain, Denies neck pain and Denies numbness Integumentary/Breasts Skin/Breast: Denies pruritus, Denies erythema, Denies rash and Denies wounds Neurologic Neurologic: Denies behavioral changes, Denies confusion, Denies dizziness, Denies frequent falls, Denies loss of vision, Denies numbness and Denies weakness Psychiatric Psychiatric: Denies anxiety, Denies behavioral changes, Denies confusion, Denies depression, Denies homicidal ideation and Denies suicidal ideation Endocrine Endocrine: Denies fatigue, Denies flushing and Denies palpitations Hematologic/Lymphatic Hematologic/Lymphatic: Denies easy bruising Allergic/Immunologic Allergic/Immunologic: Denies urticaria, Denies throat swelling and Denies wheezing Patient History Medical History Asthma (Acute) Bronchitis (Acute) Cataract (Acute) Chronic anticoagulation (Acute) Chronic pain (Acute) Chronic renal failure, stage 4 (severe) (Acute) CVA (cerebral vascular accident) (Acute) Depression (Acute) Diabetes (Acute) Diabetic neuropathy (Acute) Diabetic retinopathy (Acute) Hypertension (Acute) Lower extremity edema (Acute) Morbid obesity (Acute) PTSD (post-traumatic stress disorder) (Acute) Pulmonary embolism (Acute) Vitreous hemorrhage of left eye due to diabetes mellitus (Acute) Surgical History H/O: hysterectomy (Acute) Hx of appendectomy (Acute) Hx of tonsillectomy (Acute) Hx of total knee arthroplasty (Acute) Status post cataract extraction and insertion of intraocular lens of right eye (Acute) Family History Mother No known health problems Father Lung cancer Sister Lung cancer Tobacco dependence Social History household members: caregiver Smoking Status: Former smoker alcohol intake: former Smoking Status: Former smoker alcohol intake frequency: holidays/special occasions only Substance Use Type: former substance user Exam Narrative Exam Narrative: GENERAL: [80] year old patient appears stated age. Well- nourished, well-developed patient, in mild distress. HEAD: Atraumatic. Normocephalic. EYES: Pupils equal round and reactive. Extraocular motions intact. No scleral icterus. No injection or drainage. ENT: Nose without bleeding, purulent drainage. Throat without erythema, tonsillar hypertrophy or exudate. Airway patent. NECK: Trachea midline. Non tender CARDIOVASCULAR: Regular rate and rhythm without murmurs, gallops, or rubs. RESPIRATORY: Clear to auscultation. Breath sounds equal bilaterally. No wheezes, rales, or rhonchi. GASTROINTESTINAL: Abdomen soft, non-tender, nondistended. EXTREMITIES: No edema or joint tenderness. BACK: Mild tenderness in the lumbar region without deformity or crepitance. No flank tenderness. No saddle anesthesia. No change in sensation of lower extremities. Bilateral lower extremity reflex 1+. Strength decreased but at patient's reported baseline NEURO: AOx3. SKIN: No rash or erythema of visible areas Initial Vital Signs Initial Vital Signs: Vital Signs Pulse Rate 85 08/13/20 09:47 Pulse Oximetry 96 08/13/20 09:47 Course Orders Ordered: ED Orders 08/13/20 10:10 Urinalysis and Microscopic Stat Urine Culture Stat Discontinued Medications Cephalexin HCl (Keflex) 500 mg PO NOW ONE Stop: 08/13/20 10:48 Last Admin: 08/13/20 11:18 Dose: 500 mg Documented by: SKIP Trimethoprim/Sulfamethoxazole (Bactrim Ds) 1 tab PO NOW ONE Stop: 08/13/20 10:44 Last Admin: 08/13/20 11:18 Dose: Not Given Documented by: SKIP Vital Signs Vital signs: Vital Signs - 8 hr 08/13/20 09:47 08/13/20 09:51 08/13/20 10:00 Temperature 98.4 F Pulse Rate 85 85 82 Respiratory Rate 12 Blood Pressure 165/75 H 160/63 H Pulse Oximetry 96 96 96 08/13/20 10:30 08/13/20 11:00 Temperature Pulse Rate 77 74 Respiratory Rate Blood Pressure 164/74 H 148/68 H Pulse Oximetry 96 96 MDM - Back Pain/Injury Lab Data Labs: Lab Results 08/13/20 Range/Units 10:10 Urine Color Yellow Urine Appearance Cloudy Urine pH 6.5 (4.5-8.0) Ur Specific [place] 1.010 (1.000-1.035) Urine Protein 1+ H (Negative) Urine Glucose (UA) 2+ H (Negative) g/dL Urine Ketones Negative (NEGATIVE) Urine Occult Blood 2+ H (Negative) Urine Nitrate Negative (Negative) Urine Bilirubin Negative (NEGATIVE) Urine Urobilinogen 0.2 (0.2) E.U./dL Ur Leukocyte Esterase 2+ H (NEGATIVE) Urine RBC 1-5/hpf (0-5/HPF) Urine WBC >100/hpf H (0-5/HPF) Urine Bacteria Few (2-10) H (None) Ur Culture Indicated? Specimen cultured MDM Narrative Medical decision making narrative: Multiple etiologies of back pain considered including; Epidural abscess, cauda equina, mass occupying lesion, and other considered, however lack of suspicious findings are present. Likely a consequence of her urinary tract infection. 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 Patient has been given return precautions and had questions answered to her apparent satisfaction. Discharge Plan Departure Patient Disposition: Home Clinical Impression: Acute UTI Back pain Qualifiers: Back pain location: low back pain Chronicity: chronic Back pain laterality: midline Sciatica presence: without sciatica Qualified Code(s): M54.5 - Low back pain Instructions: DI for Low Back Pain, DI for Urinary Tract Infection (UTI) Activity Restrictions/Additional Instructions: *You have been diagnosed with [ acute UTI and back pain] *What to do: *Take medications as directed *Follow up with your primary care provider in 2-3 days, call for an appointment. Let them know you were seen in the Emergency Department and that we ask that you be seen in follow up *Return to ER if you should have any new, worsening or concerning symptoms Prescriptions: New cephalexin [Keflex] 500 mg capsule 500 mg PO QID 5 Days Qty: 20 RF: 0 No Action lamotrigine [Lamictal] 100 MG tablet 300 mg PO DAILY Qty: 0 RF: 0 Flovent Diskus 100 MCG blister with device 100 mcg INH BIDP PRN (Reason: asthma) Qty: 0 RF: 0 atorvastatin 40 MG tablet 40 mg PO BEDTIME Qty: 0 RF: 0 latanoprost 0.005 % Drops 1 drp EYE-RIGHT BEDTIME RF: 0 erythromycin 5 mg/gram (0.5 %) Ointment 0.5 inch EYE-LEFT BEDTIME RF: 0 ammonium lactate 12 % Lotion 1 applic TOPICAL BID Qty: 0 RF: 0 glipizide 10 mg Tablet 10 mg PO BID RF: 0 Eucerin Original Lotion 1 applic TOPICAL BID RF: 0 cholecalciferol (vitamin D3) [Vitamin D3] 1,000 unit Tablet 1,000 unit PO BEDTIME RF: 0 acetaminophen 325 mg Tablet 650 mg PO Q6H PRN (Reason: PAIN) RF: 0 lorazepam [Ativan] 1 mg Tablet 1 mg PO Q4HR PRN (Reason: behaviours) RF: 0 albuterol sulfate [ProAir HFA] 90 mcg/actuation Hfa Aerosol Inhaler 2 puff INHALATION Q4H PRN (Reason: asthma) RF: 0 Lantus Solostar U-100 Insulin 100 unit/mL (3 mL) Insulin Pen 26 unit SUBCUT BID RF: 0 nystatin 100,000 unit/gram Powder 1 applic TOPICAL TID PRN (Reason: Skin Irritation) RF: 0 insulin lispro [Humalog KwikPen Insulin] 100 unit/mL Insulin Pen 1 dose subcut TID RF: 0 Eliquis 2.5 mg Tablet 2.5 mg PO BID RF: 0 tramadol 50 mg Tablet 50 mg PO PRN PRN (Reason: PAIN) RF: 0 quetiapine 50 mg Tablet 50 mg PO BEDTIME RF: 0 quetiapine 25 mg tablet 25 mg PO BEDTIME RF: 0 tramadol 50 mg tablet 50 mg PO BEDTIME RF: 0 torsemide 20 mg Tablet 20 mg PO DAILY RF: 0 polyethylene glycol 3350 17 gram Powder In Packet 17 g PO DAILY RF: 0 sertraline 25 mg Tablet 25 mg PO DAILY RF: 0 Novolog Flexpen U-100 Insulin 100 unit/mL (3 mL) Insulin Pen 5 unit subcut AC Qty: 15 RF: 0 doxycycline hyclate 100 mg capsule 100 mg PO BID Qty: 14 RF: 0 lidocaine 4 % Adhesive Patch,Medicated 1 patch TOPICAL DAILY RF: 0 gabapentin 300 mg Capsule 300 mg PO BID RF: 0 Referrals: Danielle Rodriguez MD [Primary Care Provider] -
[2020-08-13 11:00] VITALS: BP 148/68; PULSE 74; O2SAT 96
[2020-08-13] MEDS: cephALEXin 250 MG CAPSULE 500 MG PO (11:18)
== END 2020-08-13 12:22 | disposition home or self-care (01) ==
PROVIDERS: Emergency Provider Emergency Medicine; PCP Internal Medicine
DX: N39.0 Urinary tract infection, site not specified (principal); M54.5 Low back pain; R30.0 Dysuria
CPT/HCPCS: 81001; 87086; 99283

== ENCOUNTER → 2020-10-20 08:31 | Outpatient (ROUT) | payer MEDICARE, MEDICAID, SELFPAY ==
[2020-10-20 08:48] LABS: Add Manual Diff / Slide Review NO; Basophils Absolute Auto 100 /uL (0-100); Basophils Percent Auto 0.7 % (0-2); Eosinophils Absolute Auto 300 /uL (0-450); Eosinophils Percent Auto 3.8 % (2-4); Hematocrit 38.7 % (36-46); Hemoglobin 13.2 g/dL (12.0-16.0); Lymphocytes Absolute Auto 1300 /uL (1100-4500); Mean Corpuscular HGB Conc 34.1 % (30-36); Mean Corpuscular Hemoglobin 30.8 PG (26-34); Mean Corpuscular Volume 90.3 fL (80-100); Monocytes Absolute Auto 700 /uL (0-900); Neutrophils Absolute Auto 5900 /uL (1500-7000); Neutrophils Percent Auto 71.5 % (50-75); Platelet Count 179 X10^3/uL (150-400); Red Blood Cell Count 4.28 X10^6/uL (4.0-5.2); Red Cell Distribution Width 14.3 % (11.6-14.8); White Blood Cell Count 8.2 X10^3/uL (4.5-11.0)
[2020-10-20 09:03] LABS: Alanine Aminotransferase 14 IU/L (<35); Albumin 3.4 g/dL (3.5-5.0); Albumin Globulin Ratio 1.1 (1.0-2.8); Alkaline Phosphatase 103 U/L (38-126); Aspartate Aminotransferase 22 IU/L (14-36); BUN Creatinine Ratio 12.2 (6-22); Bilirubin Total 0.6 mg/dL (0.2-1.3); Blood Urea Nitrogen 23 mg/dL (7-17); Calcium 10.3 mg/dL (8.4-10.2); Carbon Dioxide 29 mmol/L (22-32); Chloride 108 mmol/L (98-107); Estimated Glomerular Filt Rate 25.7 mL/min (>60); Globulin 3.2 g/dL (1.7-4.1); Glucose 217 mg/dL (80-110); HEMOLYSIS < 15 (0-50); Hemoglobin A1C% w Est Avg Glu 8.5 % (4.0-6.0); Potassium 4.1 mmol/L (3.4-5.1); Sodium 140 mmol/L (137-145); Total Protein 6.6 g/dL (6.3-8.2)
== END ==
PROVIDERS: PCP Internal Medicine; Visit Provider Nurse Practitioner Gerontology
DX: E11.9 Type 2 diabetes mellitus without complications (principal)
CPT/HCPCS: 36415; 80053; 83036; 85025

== ENCOUNTER → 2020-11-15 08:16 | Outpatient (ROUT) | payer MEDICARE, MEDICAID, SELFPAY ==
[2020-11-15 08:42] LABS: Add Manual Diff / Slide Review NO; Basophils Absolute Auto 100 /uL (0-100); Eosinophils Absolute Auto 300 /uL (0-450); Eosinophils Percent Auto 3.8 % (2-4); Hematocrit 37.6 % (36-46); Hemoglobin 12.6 g/dL (12.0-16.0); Lymphocytes Absolute Auto 2100 /uL (1100-4500); Lymphocytes Percent Auto 29.9 % (25-40); Mean Corpuscular HGB Conc 33.6 % (30-36); Mean Corpuscular Hemoglobin 30.4 PG (26-34); Mean Corpuscular Volume 90.6 fL (80-100); Monocytes Absolute Auto 600 /uL (0-900); Neutrophils Absolute Auto 4100 /uL (1500-7000); Neutrophils Percent Auto 57.3 % (50-75); Platelet Count 163 X10^3/uL (150-400); Red Blood Cell Count 4.15 X10^6/uL (4.0-5.2); Red Cell Distribution Width 13.8 % (11.6-14.8); White Blood Cell Count 7.2 X10^3/uL (4.5-11.0)
[2020-11-15 08:50] LABS: BUN Creatinine Ratio 15.6 (6-22); Blood Urea Nitrogen 30 mg/dL (7-17); Calcium 9.9 mg/dL (8.4-10.2); Carbon Dioxide 28 mmol/L (22-32); Chloride 106 mmol/L (98-107); Estimated Glomerular Filt Rate 25.2 mL/min (>60); Glucose 341 mg/dL (80-110); HEMOLYSIS < 15 (0-50); Potassium 3.6 mmol/L (3.4-5.1); Sodium 137 mmol/L (137-145)
== END ==
PROVIDERS: PCP Internal Medicine; Visit Provider Nurse Practitioner Gerontology
DX: D72.810 Lymphocytopenia (principal); N18.9 Chronic kidney disease, unspecified
CPT/HCPCS: 36415; 80048; 85025

== ENCOUNTER → 2020-11-22 07:51 | Outpatient (ROUT) | payer MEDICARE, MEDICAID, SELFPAY ==
[2020-11-22 08:15] LABS: Add Manual Diff / Slide Review NO; Basophils Absolute Auto 100 /uL (0-100); Basophils Percent Auto 0.8 % (0-2); Eosinophils Absolute Auto 300 /uL (0-450); Eosinophils Percent Auto 4.9 % (2-4); Hematocrit 37.9 % (36-46); Hemoglobin 13.1 g/dL (12.0-16.0); Lymphocytes Absolute Auto 2000 /uL (1100-4500); Lymphocytes Percent Auto 29.1 % (25-40); Mean Corpuscular HGB Conc 34.6 % (30-36); Mean Corpuscular Volume 89.7 fL (80-100); Monocytes Absolute Auto 500 /uL (0-900); Monocytes Percent Auto 6.5 % (3-14); Neutrophils Absolute Auto 4100 /uL (1500-7000); Neutrophils Percent Auto 58.7 % (50-75); Platelet Count 159 X10^3/uL (150-400); Red Blood Cell Count 4.22 X10^6/uL (4.0-5.2); Red Cell Distribution Width 14.1 % (11.6-14.8)
[2020-11-22 08:27] LABS: BUN Creatinine Ratio 12.1 (6-22); Blood Urea Nitrogen 23 mg/dL (7-17); Calcium 9.9 mg/dL (8.4-10.2); Carbon Dioxide 29 mmol/L (22-32); Chloride 104 mmol/L (98-107); Estimated Glomerular Filt Rate 25.5 mL/min (>60); Glucose 277 mg/dL (80-110); HEMOLYSIS 20 (0-50); Potassium 3.9 mmol/L (3.4-5.1); Sodium 136 mmol/L (137-145)
== END ==
PROVIDERS: PCP Internal Medicine; Visit Provider Internal Medicine
DX: N18.9 Chronic kidney disease, unspecified (principal); D72.810 Lymphocytopenia
CPT/HCPCS: 36415; 80048; 85025

== ENCOUNTER → 2020-11-29 07:26 | Outpatient (ROUT) | payer MEDICARE, MEDICAID, SELFPAY ==
[2020-11-29 07:53] LABS: Add Manual Diff / Slide Review NO; Basophils Absolute Auto 100 /uL (0-100); Basophils Percent Auto 1.1 % (0-2); Eosinophils Absolute Auto 300 /uL (0-450); Eosinophils Percent Auto 4.3 % (2-4); Hematocrit 42.3 % (36-46); Hemoglobin 14.1 g/dL (12.0-16.0); Lymphocytes Absolute Auto 1900 /uL (1100-4500); Lymphocytes Percent Auto 23.1 % (25-40); Mean Corpuscular HGB Conc 33.4 % (30-36); Mean Corpuscular Hemoglobin 30.5 PG (26-34); Mean Corpuscular Volume 91.5 fL (80-100); Monocytes Absolute Auto 600 /uL (0-900); Monocytes Percent Auto 7.2 % (3-14); Neutrophils Absolute Auto 5200 /uL (1500-7000); Neutrophils Percent Auto 64.3 % (50-75); Platelet Count 226 X10^3/uL (150-400); Red Blood Cell Count 4.62 X10^6/uL (4.0-5.2); Red Cell Distribution Width 14.2 % (11.6-14.8); White Blood Cell Count 8.1 X10^3/uL (4.5-11.0)
[2020-11-29 08:09] LABS: Alanine Aminotransferase 12 IU/L (<35); Albumin 3.9 g/dL (3.5-5.0); Albumin Globulin Ratio 1.2 (1.0-2.8); Alkaline Phosphatase 103 U/L (38-126); Aspartate Aminotransferase 22 IU/L (14-36); BUN Creatinine Ratio 13.3 (6-22); Bilirubin Total 0.4 mg/dL (0.2-1.3); Blood Urea Nitrogen 26 mg/dL (7-17); C-Reactive Protein Quant 0.8 mg/dL (<1.0); Calcium 10.2 mg/dL (8.4-10.2); Carbon Dioxide 27 mmol/L (22-32); Chloride 103 mmol/L (98-107); Estimated Glomerular Filt Rate 24.7 mL/min (>60); Globulin 3.3 g/dL (1.7-4.1); Glucose 210 mg/dL (80-110); HEMOLYSIS < 15 (0-50); Lactate Dehydrogenase 426 U/L (313-618); Magnesium 2.1 mg/dL (1.6-2.3); Potassium 3.8 mmol/L (3.4-5.1); Sodium 137 mmol/L (137-145); Total Protein 7.2 g/dL (6.3-8.2)
[2020-11-29 08:33] LABS: Cortisol AM (Before 10AM) 6.14 ug/dL (4.46-22.7)
== END ==
PROVIDERS: PCP Internal Medicine; Visit Provider Nurse Practitioner Gerontology
DX: Z79.899 Other long term (current) drug therapy (principal); R56.9 Unspecified convulsions
CPT/HCPCS: 36415; 80053; 82533; 83615; 83735; 84146; 85025; 86140

== ENCOUNTER → 2021-01-17 08:48 | Outpatient (ROUT) | payer MEDICARE, MEDICAID, SELFPAY ==
[2021-01-17 09:38] LABS: Hemoglobin A1C% w Est Avg Glu 7.9 % (4.0-6.0)
[2021-01-17 09:52] LABS: BUN Creatinine Ratio 12.3 (6-22); Blood Urea Nitrogen 27 mg/dL (7-17); Calcium 10.2 mg/dL (8.4-10.2); Carbon Dioxide 31 mmol/L (22-32); Chloride 105 mmol/L (98-107); Estimated Glomerular Filt Rate 21.6 mL/min (>60); Glucose 140 mg/dL (80-110); HEMOLYSIS < 15 (0-50); Potassium 3.9 mmol/L (3.4-5.1); Sodium 139 mmol/L (137-145)
== END ==
PROVIDERS: PCP Internal Medicine; Visit Provider Nurse Practitioner Family
DX: N18.9 Chronic kidney disease, unspecified (principal)
CPT/HCPCS: 36415; 80048; 83036

== ENCOUNTER → 2021-02-14 07:40 | Outpatient (ROUT) | payer MEDICARE, MEDICAID, SELFPAY ==
[2021-02-14 08:53] LABS: Blood Urea Nitrogen 27 mg/dL (7-17); Calcium 10.1 mg/dL (8.4-10.2); Carbon Dioxide 28 mmol/L (22-32); Chloride 107 mmol/L (98-107); Estimated Glomerular Filt Rate 23.1 mL/min (>60); Glucose 93 mg/dL (80-110); HEMOLYSIS < 15 (0-50); Potassium 3.5 mmol/L (3.4-5.1); Sodium 141 mmol/L (137-145)
== END ==
PROVIDERS: PCP Internal Medicine; Visit Provider Nurse Practitioner Family
DX: N18.9 Chronic kidney disease, unspecified (principal)
CPT/HCPCS: 36415; 80048

== ENCOUNTER → 2021-03-30 07:53 | Outpatient (ROUT) | payer MEDICARE, MEDICAID, SELFPAY ==
[2021-03-30 08:34] LABS: Add Manual Diff / Slide Review NO; Basophils Absolute Auto 100 /uL (0-100); Basophils Percent Auto 1.2 % (0-2); Eosinophils Absolute Auto 400 /uL (0-450); Eosinophils Percent Auto 4.3 % (2-4); Hematocrit 42.2 % (36-46); Hemoglobin 14.3 g/dL (12.0-16.0); Lymphocytes Absolute Auto 2100 /uL (1100-4500); Mean Corpuscular HGB Conc 33.9 % (30-36); Mean Corpuscular Hemoglobin 31.3 PG (26-34); Mean Corpuscular Volume 92.2 fL (80-100); Monocytes Absolute Auto 700 /uL (0-900); Monocytes Percent Auto 6.8 % (3-14); Neutrophils Absolute Auto 7100 /uL (1500-7000); Neutrophils Percent Auto 67.7 % (50-75); Platelet Count 314 X10^3/uL (150-400); Red Blood Cell Count 4.57 X10^6/uL (4.0-5.2); Red Cell Distribution Width 14.1 % (11.6-14.8); White Blood Cell Count 10.5 X10^3/uL (4.5-11.0)
[2021-03-30 08:48] LABS: BUN Creatinine Ratio 12.3 (6-22); Blood Urea Nitrogen 29 mg/dL (7-17); Calcium 10.7 mg/dL (8.4-10.2); Carbon Dioxide 26 mmol/L (22-32); Chloride 109 mmol/L (98-107); Glucose 72 mg/dL (80-110); HEMOLYSIS < 15 (0-50); Sodium 142 mmol/L (137-145)
== END ==
PROVIDERS: PCP Internal Medicine; Visit Provider Nurse Practitioner Family
DX: N18.9 Chronic kidney disease, unspecified (principal); R60.9 Edema, unspecified
CPT/HCPCS: 36415; 80048; 85025; 87070; 87075; 87205

== ENCOUNTER → 2021-04-04 08:07 | Outpatient (ROUT) | payer MEDICARE, MEDICAID, SELFPAY ==
[2021-04-04 08:37] LABS: Add Manual Diff / Slide Review NO; Basophils Absolute Auto 100 /uL (0-100); Basophils Percent Auto 0.9 % (0-2); Eosinophils Absolute Auto 400 /uL (0-450); Eosinophils Percent Auto 4.4 % (2-4); Hematocrit 39.7 % (36-46); Hemoglobin 13.4 g/dL (12.0-16.0); Lymphocytes Absolute Auto 2600 /uL (1100-4500); Lymphocytes Percent Auto 29.2 % (25-40); Mean Corpuscular HGB Conc 33.8 % (30-36); Mean Corpuscular Hemoglobin 30.8 PG (26-34); Mean Corpuscular Volume 91.2 fL (80-100); Monocytes Absolute Auto 700 /uL (0-900); Monocytes Percent Auto 8.4 % (3-14); Neutrophils Absolute Auto 5100 /uL (1500-7000); Neutrophils Percent Auto 57.1 % (50-75); Platelet Count 291 X10^3/uL (150-400); Red Blood Cell Count 4.35 X10^6/uL (4.0-5.2); Red Cell Distribution Width 14.1 % (11.6-14.8); White Blood Cell Count 8.9 X10^3/uL (4.5-11.0)
[2021-04-04 08:52] LABS: BUN Creatinine Ratio 15.8 (6-22); Blood Urea Nitrogen 37 mg/dL (7-17); Calcium 10.4 mg/dL (8.4-10.2); Carbon Dioxide 27 mmol/L (22-32); Chloride 106 mmol/L (98-107); Estimated Glomerular Filt Rate 20.1 mL/min (>60); Glucose 102 mg/dL (80-110); HEMOLYSIS 16 (0-50); Potassium 3.2 mmol/L (3.4-5.1); Sodium 142 mmol/L (137-145)
== END ==
PROVIDERS: PCP Internal Medicine; Visit Provider Nurse Practitioner Family
DX: N18.9 Chronic kidney disease, unspecified (principal); Z79.899 Other long term (current) drug therapy
CPT/HCPCS: 36415; 80048; 85025

== ENCOUNTER → 2021-04-11 07:53 | Outpatient (ROUT) | payer MEDICARE, MEDICAID, SELFPAY ==
[2021-04-11 08:50] LABS: HEMOLYSIS < 15 (0-50); Potassium 3.7 mmol/L (3.4-5.1)
== END ==
PROVIDERS: PCP Internal Medicine; Visit Provider Internal Medicine
DX: E87.6 Hypokalemia (principal)
CPT/HCPCS: 36415; 84132

== ENCOUNTER 2021-04-30 23:16 | Inpatient (IN) | payer MEDICARE, MEDICAID, SELFPAY ==
[2021-04-30 23:20] VITALS: BP 99/54; PULSE 97; RESP 24; TEMP 39.3; O2SAT 93
--- NOTE | 2021-04-30 23:20 | ED.GENADULT ---
HPI - General Adult General Chief complaint: Fever Stated complaint: Decrease mental status Time Seen by Provider: 04/30/21 23:20 History of Present Illness HPI narrative: patient is a 80-year-old female who arrived by EMS for evaluation of fever and altered mental status. According to EMS her last known normal was sometime this afternoon when was found by the nursing facility where she is staying that she had a fever and was not responding appropriately. No interventions made prior to arrival. Patient is unable to provide any HPI. Related Data Home Medications Medication Instructions Recorded Confirmed fluticasone propionate 100 100 mcg INH BIDP PRN #0 09/08/16 09/02/19 mcg/actuation blister powder for inhalation (Flovent Diskus) lamotrigine 100 mg tablet 300 mg PO DAILY #0 09/08/16 09/02/19 (Lamictal) atorvastatin 40 mg tablet 40 mg PO BEDTIME #0 01/18/18 09/02/19 erythromycin 5 mg/gram (0.5 %) eye 0.5 inch EYE-LEFT BEDTIME 08/08/18 09/02/19 ointment latanoprost 0.005 % eye drops 1 drp EYE-RIGHT BEDTIME 08/08/18 09/02/19 ammonium lactate 12 % lotion 1 applic TOPICAL BID #0 08/13/18 09/02/19 cholecalciferol (vitamin D3) 25 1,000 unit PO BEDTIME 08/13/18 09/02/19 mcg (1,000 unit) tablet (Vitamin D3) glipizide 10 mg tablet 10 mg PO BID 08/13/18 09/02/19 lanolin-mineral oil lotion 1 applic TOPICAL BID 08/13/18 09/02/19 (Eucerin Original) acetaminophen 325 mg tablet 650 mg PO Q6H PRN 03/07/19 09/02/19 albuterol sulfate 90 mcg/actuation 2 puff INHALATION Q4H PRN 03/07/19 09/02/19 aerosol inhaler (ProAir HFA) insulin glargine 100 unit/mL (3 26 unit SUBCUT BID 03/07/19 09/02/19 mL) subcutaneous pen (Lantus Solostar U-100 Insulin) lorazepam 1 mg tablet (Ativan) 1 mg PO Q4HR PRN 03/07/19 09/02/19 nystatin 100,000 unit/gram topical 1 applic TOPICAL TID PRN 03/08/19 09/02/19 powder apixaban 2.5 mg tablet (Eliquis) 2.5 mg PO BID 03/24/19 09/02/19 insulin lispro 100 unit/mL 1 dose SUBCUT TID 03/24/19 09/02/19 subcutaneous pen (Humalog KwikPen (U-100) Insulin) gabapentin 300 mg capsule 300 mg PO BID 03/28/19 09/02/19 lidocaine 4 % topical patch 1 patch TOPICAL DAILY 03/28/19 09/02/19 polyethylene glycol 3350 17 gram 17 g PO DAILY 09/02/19 09/02/19 oral powder packet quetiapine 25 mg tablet 25 mg PO BEDTIME 09/02/19 09/02/19 quetiapine 50 mg tablet 50 mg PO BEDTIME 09/02/19 09/02/19 sertraline 25 mg tablet 25 mg PO DAILY 09/02/19 09/02/19 torsemide 20 mg tablet 20 mg PO DAILY 09/02/19 09/02/19 tramadol 50 mg tablet 50 mg PO BEDTIME 09/02/19 09/02/19 tramadol 50 mg tablet 50 mg PO PRN PRN 09/02/19 09/02/19 Previous Rx's Medication Instructions Recorded doxycycline hyclate 100 mg capsule 100 mg PO BID #14 cap 09/03/19 insulin aspart U-100 100 unit/mL 5 unit SUBCUT AC #15 ml 09/03/19 (3 mL) subcutaneous pen (Novolog Flexpen U-100 Insulin aspart) Allergies Allergy/AdvReac Type Severity Reaction Status Date / Time Iodine and Iodide Containing Allergy Intermediate i get Verified 02/03/20 19:39 Produc spots all [IODINE AND IODIDE over my CONTAINING PRODUC] body Penicillins [PENICILLINS] Allergy Intermediate makes my Verified 02/03/20 19:39 bones and joints ache aspirin [ASPIRIN] Allergy Unknown Verified 02/03/20 19:39 meclizine [MECLIZINE] Allergy Unknown Verified 02/03/20 19:39 codeine [CODEINE] AdvReac Unknown gives me Verified 02/03/20 19:39 bloody nightmares potassium [POTASSIUM] AdvReac Unknown Verified 02/03/20 19:39 Review of Systems Review of Systems Narrative: patient unable to provide any review of systems secondary to altered mental status ROS Unobtainable: Unobtainable due to mental status/LOC Patient History Medical History Asthma Bronchitis Cataract Chronic anticoagulation Chronic pain Chronic renal failure, stage 4 (severe) CVA (cerebral vascular accident) Depression Diabetes Diabetic neuropathy Diabetic retinopathy Hypertension Lower extremity edema Morbid obesity PTSD (post-traumatic stress disorder) Pulmonary embolism Vitreous hemorrhage of left eye due to diabetes mellitus Surgical History H/O: hysterectomy Hx of appendectomy Hx of tonsillectomy Hx of total knee arthroplasty Status post cataract extraction and insertion of intraocular lens of right eye Family History Mother No known health problems Father Lung cancer Sister Lung cancer Tobacco dependence Social History household members: caregiver Smoking Status: Former smoker alcohol intake: former Smoking Status: Former smoker alcohol intake frequency: holidays/special occasions only Substance Use Type: former substance user Exam Initial Vital Signs Initial Vital Signs: Vital Signs Temperature 102.7 F H 04/30/21 23:20 Pulse Rate 97 H 04/30/21 23:20 Respiratory Rate 24 04/30/21 23:20 Blood Pressure 99/54 L 04/30/21 23:20 Pulse Oximetry 93 04/30/21 23:20 Const Nutritional Appearance: well nourished HENMT Head: normal to inspection and normocephalic Eyes Pupils: PERRL Resp Effort & Inspection: not labored and tachypneic Auscultation: clear to auscultation bilaterally Cardio Rate: regular rate Rhythm: regular rhythm GI Palpation: soft and No firm Skin Other: patient does have pressure ulcers on her lower back/buttocks Neuro General: moves all extremities and patient confused Extrem General: No edema Psych Appearance: grossly normal and well kempt Scores GCS Webb coma scale eye opening: To sound Webb coma scale verbal response: Words Wlater coma scale motor response: Obey commands Walter coma scale total score: 12 Course Orders Ordered: ED Orders 04/30/21 23:22 CT head/brain wo con Stat XR chest 1V Stat EKG-12 Lead Stat 04/30/21 23:29 Complete Blood Count AUTO DIFF Stat Comprehensive Metabolic Panel Stat Lipase Stat Procalcitonin Stat Troponin & CK Cardiac Panel Stat 04/30/21 23:40 Lactate (Lactic Acid) Stat Urinalysis and Microscopic Stat Urine Culture Stat 04/30/21 23:46 Blood Culture Stat 04/30/21 23:50 COVID19 - ADMIT ([employer] swab/PCR) Stat 05/01/21 01:37 Basic Metabolic Panel Stat Troponin I Stat 05/01/21 02:19 US renal complete Stat Discontinued Medications Acetaminophen (Acetaminophen 325 Mg Supp) 325 mg AK NOW ONE Stop: 04/30/21 23:24 Last Admin: 04/30/21 23:54 Dose: Not Given Documented by: HOMERO Acetaminophen (Acetaminophen 120 Mg Supp) 325 mg AK NOW ONE Stop: 04/30/21 23:26 Last Admin: 04/30/21 23:54 Dose: 325 mg Documented by: HOMERO Sodium Chloride (Normal Saline 0.9%) 1,000 mls @ 1,000 mls/hr IV BOLUS ONE Stop: 05/01/21 00:19 Last Infusion: 05/01/21 01:28 Dose: 0 mls/hr Documented by: Admin: 04/30/21 23:54 Dose: 1,000 mls/hr Documented by: HOMERO Ceftriaxone Sodium 1,000 mg/ (Sodium Chloride) 100 mls @ 200 mls/hr IV NOW ONE Stop: 04/30/21 23:21 Last Infusion: 05/01/21 00:35 Dose: 0 mls/hr Documented by: Admin: 04/30/21 23:54 Dose: 200 mls/hr Documented by: HOMERO Sodium Chloride (Normal Saline 0.9%) 3,265.86 mls @ 1,088.62 mls/hr 30 ml/kg infuse over 3 hr (3265.86 ml) IV NOW ONE Stop: 05/01/21 03:14 Last Infusion: 05/01/21 03:57 Dose: 0 mls/hr Documented by: Admin: 05/01/21 00:50 Dose: 1,088.62 mls/hr Documented by: HOMERO Vital Signs Vital signs: Vital Signs - 8 hr 04/30/21 23:20 04/30/21 23:43 04/30/21 23:46 Temperature 102.7 F H Pulse Rate 97 H 86 84 Respiratory Rate 24 21 20 Blood Pressure 99/54 L 103/56 L Pulse Oximetry 93 97 97 04/30/21 23:50 05/01/21 00:00 05/01/21 00:10 Temperature Pulse Rate 82 82 77 Respiratory Rate 20 21 17 Blood Pressure 101/54 L 95/52 L 103/51 L Pulse Oximetry 92 92 93 05/01/21 00:30 05/01/21 00:38 05/01/21 00:40 Temperature Pulse Rate 80 73 73 Respiratory Rate 18 17 17 Blood Pressure 103/52 L 104/54 L Pulse Oximetry 94 94 94 05/01/21 00:42 05/01/21 00:46 05/01/21 00:50 Temperature 101.2 F H Pulse Rate 73 69 70 Respiratory Rate 18 17 16 Blood Pressure 104/54 L 96/49 L 107/55 L Pulse Oximetry 94 94 94 05/01/21 01:00 05/01/21 01:10 05/01/21 01:20 Temperature Pulse Rate 64 64 64 Respiratory Rate 17 16 16 Blood Pressure 90/45 L 99/54 L 93/50 L Pulse Oximetry 94 95 94 05/01/21 01:24 05/01/21 01:30 05/01/21 01:31 Temperature Pulse Rate 65 81 82 Respiratory Rate 16 20 21 Blood Pressure 93/50 L 105/60 Pulse Oximetry 95 96 95 05/01/21 02:00 05/01/21 02:10 05/01/21 02:13 Temperature Pulse Rate 84 88 89 Respiratory Rate 21 29 H 29 H Blood Pressure 100/56 L 240/137 H 114/55 L Pulse Oximetry 92 93 05/01/21 02:14 05/01/21 02:30 05/01/21 02:31 Temperature 98.5 F Pulse Rate 89 92 H 93 H Respiratory Rate 18 22 22 Blood Pressure 114/55 L 115/57 L Pulse Oximetry 95 85 L 84 L 05/01/21 03:00 05/01/21 03:01 05/01/21 03:20 Temperature Pulse Rate 97 H 97 H 100 H Respiratory Rate 22 23 20 Blood Pressure 96/53 L 98/56 L Pulse Oximetry 94 92 96 Medical Decision Making Lab Data Result diagrams: 04/30/21 23:29 05/01/21 01:37 Labs: Lab Results 04/30/21 04/30/21 04/30/21 Range/Units 23:29 23:29 23:29 WBC 15.2 H (4.5-11.0) X10^3/uL RBC 4.54 (4.0-5.2) X10^6/uL Hgb 14.1 (12.0-16.0) g/dL Hct 41.7 (36-46) % MCV 91.9 (80-100) fL MCH 31.1 (26-34) PG MCHC 33.9 (30-36) % RDW 14.5 (11.6-14.8) % Plt Count 229 (150-400) X10^3/uL Neut % (Auto) 87.4 H (50-75) % Lymph % (Auto) 4.6 L (25-40) % [place] % (Auto) 7.1 (3-14) % Eos % (Auto) 0.4 L (2-4) % Baso % (Auto) 0.5 (0-2) % Neut # (Auto) 24640 H (8033-5046) /uL Lymph # (Auto) 700 L (3651-4416) /uL [place] # (Auto) 1100 H (0-900) /uL Eos # (Auto) 100 (0-450) /uL Baso # (Auto) 100 (0-100) /uL Sodium 134 L (137-145) mmol/L Potassium 4.3 (3.4-5.1) mmol/L Chloride 102 (98-107) mmol/L Carbon Dioxide 21 L (22-32) mmol/L BUN 36 H (7-17) mg/dL Creatinine 4.24 H (0.52-1.04) mg/dL Estimated GFR 10.1 L (>60) mL/min BUN/Creatinine Ratio 8.5 (6-22) Glucose 297 H (80-110) mg/dL Lactate (0.7-2.1) mmol/L Calcium 10.2 (8.4-10.2) mg/dL Total Bilirubin 1.2 (0.2-1.3) mg/dL AST 21 (14-36) IU/L ALT 14 (<35) IU/L Alkaline Phosphatase 90 (38-126) U/L Total Creatine Kinase 53 (30-135) U/L CK-MB (CK-2) TNP CK-MB (CK-2) Rel Index TNP Troponin I 0.064 H (0.01-0.034) ng/mL Total Protein 7.2 (6.3-8.2) g/dL Albumin 3.8 (3.5-5.0) g/dL Globulin 3.4 (1.7-4.1) g/dL Albumin/Globulin Ratio 1.1 (1.0-2.8) Lipase 27 (23-300) U/L Procalcitonin 0.82 H (<0.5) ng/mL Urine Color Urine Appearance Urine pH (4.5-8.0) Ur Specific [place] (1.000-1.035) Urine Protein (Negative) Urine Glucose (UA) (Negative) g/dL Urine Ketones (NEGATIVE) Urine Occult Blood (Negative) Urine Nitrate (Negative) Urine Bilirubin (NEGATIVE) Urine Urobilinogen (0.2) E.U./dL Ur Leukocyte Esterase (NEGATIVE) Urine RBC (0-5/HPF) Urine WBC (0-5/HPF) Ur Squamous Epith Cells (0-5/HPF) Urine Bacteria (None) Ur Culture Indicated? SARS-CoV-2 (PCR) (Negative) 04/30/21 04/30/21 04/30/21 Range/Units 23:40 23:40 23:50 WBC (4.5-11.0) X10^3/uL RBC (4.0-5.2) X10^6/uL Hgb (12.0-16.0) g/dL Hct (36-46) % MCV (80-100) fL MCH (26-34) PG MCHC (30-36) % RDW (11.6-14.8) % Plt Count (150-400) X10^3/uL Neut % (Auto) (50-75) % Lymph % (Auto) (25-40) % [place] % (Auto) (3-14) % Eos % (Auto) (2-4) % Baso % (Auto) (0-2) % Neut # (Auto) (4866-1211) /uL Lymph # (Auto) (4229-7787) /uL [place] # (Auto) (0-900) /uL Eos # (Auto) (0-450) /uL Baso # (Auto) (0-100) /uL Sodium (137-145) mmol/L Potassium (3.4-5.1) mmol/L Chloride (98-107) mmol/L Carbon Dioxide (22-32) mmol/L BUN (7-17) mg/dL Creatinine (0.52-1.04) mg/dL Estimated GFR (>60) mL/min BUN/Creatinine Ratio (6-22) Glucose (80-110) mg/dL Lactate 2.4 H (0.7-2.1) mmol/L Calcium (8.4-10.2) mg/dL Total Bilirubin (0.2-1.3) mg/dL AST (14-36) IU/L ALT (<35) IU/L Alkaline Phosphatase (38-126) U/L Total Creatine Kinase (30-135) U/L CK-MB (CK-2) CK-MB (CK-2) Rel Index Troponin I (0.01-0.034) ng/mL Total Protein (6.3-8.2) g/dL Albumin (3.5-5.0) g/dL Globulin (1.7-4.1) g/dL Albumin/Globulin Ratio (1.0-2.8) Lipase (23-300) U/L Procalcitonin (<0.5) ng/mL Urine Color Yellow Urine Appearance Slightly cloudy Urine pH 5.5 (4.5-8.0) Ur Specific [place] 1.010 (1.000-1.035) Urine Protein 2+ H (Negative) Urine Glucose (UA) Negative (Negative) g/dL Urine Ketones Negative (NEGATIVE) Urine Occult Blood 3+ H (Negative) Urine Nitrate Negative (Negative) Urine Bilirubin Negative (NEGATIVE) Urine Urobilinogen 0.2 (0.2) E.U./dL Ur Leukocyte Esterase 2+ H (NEGATIVE) Urine RBC 5-10/hpf H (0-5/HPF) Urine WBC 30-100/hpf H (0-5/HPF) Ur Squamous Epith Cells 0-1 /hpf (0-5/HPF) Urine Bacteria Moderate (10-30) H (None) Ur Culture Indicated? Culture not indicate SARS-CoV-2 (PCR) Negative (Negative) 05/01/21 05/01/21 05/01/21 Range/Units 01:37 01:37 01:37 WBC (4.5-11.0) X10^3/uL RBC (4.0-5.2) X10^6/uL Hgb (12.0-16.0) g/dL Hct (36-46) % MCV (80-100) fL MCH (26-34) PG MCHC (30-36) % RDW (11.6-14.8) % Plt Count (150-400) X10^3/uL Neut % (Auto) (50-75) % Lymph % (Auto) (25-40) % [place] % (Auto) (3-14) % Eos % (Auto) (2-4) % Baso % (Auto) (0-2) % Neut # (Auto) (2597-9677) /uL Lymph # (Auto) (0840-0779) /uL [place] # (Auto) (0-900) /uL Eos # (Auto) (0-450) /uL Baso # (Auto) (0-100) /uL Sodium 138 (137-145) mmol/L Potassium 4.5 (3.4-5.1) mmol/L Chloride 107 (98-107) mmol/L Carbon Dioxide 23 (22-32) mmol/L BUN 36 H (7-17) mg/dL Creatinine 4.28 H (0.52-1.04) mg/dL Estimated GFR 10.0 L (>60) mL/min BUN/Creatinine Ratio 8.4 (6-22) Glucose 207 H (80-110) mg/dL Lactate 2.1 (0.7-2.1) mmol/L Calcium 9.5 (8.4-10.2) mg/dL Total Bilirubin (0.2-1.3) mg/dL AST (14-36) IU/L ALT (<35) IU/L Alkaline Phosphatase (38-126) U/L Total Creatine Kinase (30-135) U/L CK-MB (CK-2) CK-MB (CK-2) Rel Index Troponin I 0.069 H (0.01-0.034) ng/mL Total Protein (6.3-8.2) g/dL Albumin (3.5-5.0) g/dL Globulin (1.7-4.1) g/dL Albumin/Globulin Ratio (1.0-2.8) Lipase (23-300) U/L Procalcitonin (<0.5) ng/mL Urine Color Urine Appearance Urine pH (4.5-8.0) Ur Specific [place] (1.000-1.035) Urine Protein (Negative) Urine Glucose (UA) (Negative) g/dL Urine Ketones (NEGATIVE) Urine Occult Blood (Negative) Urine Nitrate (Negative) Urine Bilirubin (NEGATIVE) Urine Urobilinogen (0.2) E.U./dL Ur Leukocyte Esterase (NEGATIVE) Urine RBC (0-5/HPF) Urine WBC (0-5/HPF) Ur Squamous Epith Cells (0-5/HPF) Urine Bacteria (None) Ur Culture Indicated? SARS-CoV-2 (PCR) (Negative) Point of Care Testing Glucose POC 377 Point of care testing: Point of Care Testing Glucose POC [address] scan - head: Radiologist's Impression: moderate atrophy. No acute intracranial findings Chest x-ray: Radiologist's Impression: Cardiomegaly, minimal scattered atelectasis/ fibrotic changes bilaterally renal ultrasound: Radiologist's Impression: moderate right-sided hydronephrosis ECG Data Attestation: I personally reviewed and interpreted this ECG as follows: Prior ECG tracings: available for review Interpretation: sinus rhythm Left axis deviation Normal QRS Incomplete right bundle branch block Compared to August 2019 unchanged MDM Narrative Medical decision making narrative: patient unable to provide any review of systems or HPI given her altered mental status. She was febrile. Has a leukocytosis with a left shift. Urinalysis that was obtained was a cath urinalysis. Is concerned about a UTI was given antibiotics. Head CT chest x-ray is unremarkable. Does have an elevation in her creatinine. Initially discussed the case with LIV Galeana who initially asked me to obtain a ultrasound of her kidneys and to discuss the case with Nephrology prior to admission. This was obtained. Discuss the case with Dr. Goodson at [facility] who stated that patient should continued to be fluid hydrated and treating her infection however there was no emergent need for dialysis. I then discussed the case with LIV Galeana again we will admit for further evaluation and treatment. Discharge Plan Departure Patient Disposition: Admitted As Inpatient Clinical Impression: Acute kidney injury, Urinary tract infection, Altered mental status Admit Date/Time: 05/01/21 06:08
--- NOTE | 2021-04-30 23:22 | DI.RAD.S_ITS ---
PROCEDURE: XR CHEST 1V INDICATIONS: eval for PNA TECHNIQUE: One view of the chest was acquired. COMPARISON: [facility], CR, XR CHEST 1V, 03/28/2019, 9:27. FINDINGS: Surgical changes and devices: None. Lungs and pleura: Lungs are clear. No pleural effusions or pneumothorax. Mediastinum: Mediastinal contours appear normal. Heart is enlarged. Bones and chest wall: No suspicious bony lesions. Overlying soft tissues appear unremarkable. IMPRESSION: No acute cardiopulmonary disease process. Cardiomegaly. Dictated by: Romana Nicole MD, PhD on 05/01/2021 at 8:10 Approved by: Romana Nicole MD, PhD on 05/01/2021 at 8:11
--- NOTE | 2021-04-30 23:22 | DI.CT.S_ITS ---
PROCEDURE: CT HEAD/BRAIN WO CON INDICATIONS: Acute altered mental status. TECHNIQUE: Noncontrast 4.5 mm thick angled axial sections acquired from the foramen magnum to the vertex, with coronal and sagittal reformats. For radiation dose reduction, the following was used: automated exposure control, adjustment of mA and/or kV according to patient size. COMPARISON: [facility], CT, CT HEAD/BRAIN WO CON, 03/04/2019, 0:48. [facility], MR, MR HEAD/BRAIN WO CON, 04/07/2019, 12:17. [facility], CT, CT HEAD/BRAIN WO CON, 04/06/2019, 23:51. [facility], CT, CT HEAD/BRAIN WO CON, 09/10/2019, 22:24. [facility], CT, CT HEAD/BRAIN WO CON, 02/03/2020, 19:24. [facility], CT, CT HEAD/BRAIN WO CON, 01/26/2020, 22:22. FINDINGS: Image quality: Excellent. CSF spaces: Basal cisterns are patent. No extra-axial fluid collections. The ventricles are symmetric in size and shape. Brain: No intracranial bleeds or masses. There is cerebral volume loss for age, with resultant ventricular and sulcal prominence. There are periventricular and deep white matter chronic small vessel ischemic changes. There is intracranial internal carotid artery atherosclerosis. Skull and face: Calvarium and visualized facial bones appear intact, without suspicious lesions. Partially visualized mass in the left ocular globe is not significantly changed compared to prior exams where visualized. Sinuses: Visualized sinuses and mastoids are clear. IMPRESSION: No acute intracranial disease process. Dictated by: Romana Nicole MD, PhD on 05/01/2021 at 7:07 Approved by: Romana Nicole MD, PhD on 05/01/2021 at 7:16
[2021-04-30 23:36] LABS: Add Manual Diff / Slide Review NO; Basophils Absolute Auto 100 /uL (0-100); Basophils Percent Auto 0.5 % (0-2); Eosinophils Absolute Auto 100 /uL (0-450); Eosinophils Percent Auto 0.4 % (2-4); Hematocrit 41.7 % (36-46); Hemoglobin 14.1 g/dL (12.0-16.0); Lymphocytes Absolute Auto 700 /uL (1100-4500); Lymphocytes Percent Auto 4.6 % (25-40); Mean Corpuscular HGB Conc 33.9 % (30-36); Mean Corpuscular Hemoglobin 31.1 PG (26-34); Mean Corpuscular Volume 91.9 fL (80-100); Monocytes Absolute Auto 1100 /uL (0-900); Monocytes Percent Auto 7.1 % (3-14); Neutrophils Absolute Auto 13300 /uL (1500-7000); Neutrophils Percent Auto 87.4 % (50-75); Platelet Count 229 X10^3/uL (150-400); Red Blood Cell Count 4.54 X10^6/uL (4.0-5.2); Red Cell Distribution Width 14.5 % (11.6-14.8); White Blood Cell Count 15.2 X10^3/uL (4.5-11.0)
[2021-04-30 23:38] LABS: Creatine Kinase 53 U/L (30-135)
[2021-04-30 23:40] LABS: Alanine Aminotransferase 14 IU/L (<35); Albumin 3.8 g/dL (3.5-5.0); Albumin Globulin Ratio 1.1 (1.0-2.8); Alkaline Phosphatase 90 U/L (38-126); Aspartate Aminotransferase 21 IU/L (14-36); BUN Creatinine Ratio 8.5 (6-22); Bilirubin Total 1.2 mg/dL (0.2-1.3); Blood Urea Nitrogen 36 mg/dL (7-17); Calcium 10.2 mg/dL (8.4-10.2); Carbon Dioxide 21 mmol/L (22-32); Chloride 102 mmol/L (98-107); Estimated Glomerular Filt Rate 10.1 mL/min (>60); Globulin 3.4 g/dL (1.7-4.1); Glucose 297 mg/dL (80-110); HEMOLYSIS 21 (0-50); Lipase 27 U/L (23-300); Potassium 4.3 mmol/L (3.4-5.1); Sodium 134 mmol/L (137-145); Total Protein 7.2 g/dL (6.3-8.2)
[2021-04-30 23:43] VITALS: PULSE 86; RESP 21; O2SAT 97
[2021-04-30 23:46] VITALS: BP 103/56; PULSE 84; RESP 20; O2SAT 97
[2021-04-30 23:50] VITALS: BP 101/54; PULSE 82; RESP 20; O2SAT 92
[2021-04-30 23:51] LABS: Troponin I 0.064 ng/mL (0.01-0.034)
[2021-04-30] MEDS: cefTRIAXone 1,000 MG in SODIUM CHLORIDE 0.9% 100 ML 200 ML IV (23:54)
[2021-04-30] MEDS: ACETAMINOPHEN 120 MG SUPP 325 MG PR (23:54)
[2021-04-30] MEDS: SODIUM CHLORIDE 0.9% 1,000 ML 1000 ML IV (23:54)
[2021-04-30 23:56] LABS: Procalcitonin 0.82 ng/mL (<0.5)
[2021-04-30 23:58] LABS: Bilirubin Urine UA NEGATIVE (NEGATIVE); Color Urine UA YELLOW; Glucose Urine UA NEGATIVE (Negative); Ketones Urine UA NEGATIVE (NEGATIVE); Leukocyte Esterase Urine UA 2+ (NEGATIVE); Nitrite Urine UA NEGATIVE (Negative); Occult Blood Urine UA 3+ (Negative); Protein Urine UA 2+ (Negative); Urobilinogen Urine UA 0.2 E.U./dL (0.2)
[2021-05-01] VITALS (40 sets, daily range): BP systolic 90–240; BP diastolic 45–137; PULSE 64–103; RESP 16–32; TEMP 36.6–40.2; O2SAT 84–97; BMI 47.1
[2021-05-01] LABS: Appearance Urine UA Slightly Cloudy; Bacteria Urine Moderate (10-30); RBC Urine 5-10/HPF (0-5/HPF); Squamous Epithelial Cell Urine 0-1 /HPF (0-5/HPF); WBC Urine 30-100/HPF (0-5/HPF); pH Urine UA 5.5 (4.5-8.0)
[2021-05-01 00:11] LABS: Lactate (Lactic Acid) 2.4 mmol/L (0.7-2.1)
[2021-05-01] MEDS: SODIUM CHLORIDE 0.9% 3,265.86 ML 1088.62 ML IV (00:50)
[2021-05-01 00:59] LABS: COVID19 - ADMIT (NP swab/PCR) Negative (Negative)
[2021-05-01 01:52] LABS: Reflexed Lactate in 2 Hours Y
[2021-05-01 02:01] LABS: Lactate 2HR (Lactic Acid Rflx) 2.1 mmol/L (0.7-2.1)
[2021-05-01 02:09] LABS: Troponin I 0.069 ng/mL (0.01-0.034)
--- NOTE | 2021-05-01 02:19 | DI.US.S_ITS ---
PROCEDURE: US RENAL COMPLETE INDICATIONS: ACUTE KIDNEY INJURY TECHNIQUE: Real-time scanning was performed of the kidneys and bladder, with image documentation. COMPARISON: None. FINDINGS: Image quality degraded by patient body habitus. Kidneys: Kidneys are normal in size. Right kidney measures 11.3 cm long; left kidney measures 9.2 cm long. Right renal cortical thickness is 1.4 cm; left renal cortical thickness is 0.7 cm. Renal cortical echotexture is normal. Moderate right-sided hydronephrosis. No nephrolithiasis. No suspicious solid mass lesions. Bladder: Decompressed by Salgado catheter. Miscellaneous: No free pelvic fluid. IMPRESSION: 1. Moderate right-sided hydronephrosis. 2. Mild left renal atrophy with renal cortical thinning. 3. No sonographic evidence of nephrolithiasis. Dictated by: Romana Nicole MD, PhD on 05/01/2021 at 7:45 Approved by: Romana Nicole MD, PhD on 05/01/2021 at 7:47
[2021-05-01 02:34] LABS: BUN Creatinine Ratio 8.4 (6-22); Blood Urea Nitrogen 36 mg/dL (7-17); Calcium 9.5 mg/dL (8.4-10.2); Carbon Dioxide 23 mmol/L (22-32); Chloride 107 mmol/L (98-107); Glucose 207 mg/dL (80-110); HEMOLYSIS < 15 (0-50); Potassium 4.5 mmol/L (3.4-5.1); Sodium 138 mmol/L (137-145)
--- NOTE | 2021-05-01 02:40 | PC.NURSE ---
She is more alert now,when askedwhere are you?she replied,in the hospital.
--- NOTE | 2021-05-01 06:04 | PC.NURSE ---
4th liter NS INFUSING AT 125 ML PER,APPROX.250 ML HAD INFUSED.MEDITECK WAS DOWN AT TIME IT WAS HUNG.
--- NOTE | 2021-05-01 06:09 | PC.NURSE ---
Lara TAYLOR notified about decubitus ulcer noted on her buttock.She remians lethargic and Lara also notified about her increasing temperature of 103.
--- NOTE | 2021-05-01 06:18 | P.HP_ITS ---
History of Present Illness History of Present Illness Date Patient Seen: 05/01/21 Time Patient Seen: 05:30 Chief complaint: Non-responsive, unable to speak Narrative: Cassie Solares is a 80-year-old female resident of [facility] Living with a complex medical history significant for hypertension, uncontrolled diabetes with retinopathy and neuropathy, chronic renal failure stage 4, asthma, bilateral lower extremity edema, long-term anticoagulation status post CVA and PE with apixaban, history of vitreous hemorrhage and glaucoma was brought to the emergency department due to being nonresponsive and having a high fever. Patient is not able to provide a history as she is unable to speak. She was apparently her normal self in the early evening, but then when she was checked upon later that evening she was nonstop responsive or talking. In the emergency department they did a head CT and a chest x-ray which was negative. I requested that she undergo a renal ultrasound given that her renal function was significantly worsened. Per the emergency room provider he stated that she had pyelonephritis and she has an equivocal UA indicating a urinary tr act infection. Patient's T-max was 102.7?, temperature currently is 98.5, blood pressure 1 4/55, heart rate 89, respiratory rate 18, oxygen saturation of 95% on room air, she weighs 109 kg with a BMI of 50.5. She has a white count of 15.2, hemoglobin is 14.1 hematocrit 41.7 platelet count 229 with a left shift of 13,000, sodium is 138 potassium 4.5, chloride 107 bicarb 23, BUN 36, creatinine 4.2 with a EGFR of 10, glucose is 207, calcium 9.5. Her troponins were elevated at at 11:29 p.m. her initial troponin was 0.064 then at 1:37 a.m. it was 0.069. Patient History Medical History (Updated 05/01/21 @ 06:32 by SHAUNA Arreola) Acute kidney injury superimposed on chronic kidney disease Asthma Bronchitis Cataract Chronic anticoagulation Chronic pain Chronic renal failure, stage 4 (severe) CVA (cerebral vascular accident) Depression Diabetes Diabetes type 2, uncontrolled Diabetic neuropathy Diabetic retinopathy Hypertension Lower extremity edema Morbid obesity Morbid obesity with BMI of 50.0-59.9, adult PTSD (post-traumatic stress disorder) Pulmonary embolism Vitreous hemorrhage of left eye due to diabetes mellitus Surgical History H/O: hysterectomy Hx of appendectomy Hx of tonsillectomy Hx of total knee arthroplasty Status post cataract extraction and insertion of intraocular lens of right eye Family & Social History Family History Mother No known health problems Father Lung cancer Sister Lung cancer Tobacco dependence Social History: household members caregiver Tobacco & Substance use: Smoking Status Former smoker alcohol intake former alcohol intake frequency holiday/special occasion Substance Use Type former substance user Meds Home Medications and Allergies Home Medications Medication Instructions Recorded Confirmed Type fluticasone propionate 100 100 mcg INH BIDP PRN #0 09/08/16 09/02/19 History mcg/actuation blister powder for inhalation (Flovent Diskus) lamotrigine 100 mg tablet 300 mg PO DAILY #0 09/08/16 09/02/19 History (Lamictal) atorvastatin 40 mg tablet 40 mg PO BEDTIME #0 01/18/18 09/02/19 History erythromycin 5 mg/gram (0.5 %) eye 0.5 inch EYE-LEFT BEDTIME 08/08/18 09/02/19 History ointment latanoprost 0.005 % eye drops 1 drp EYE-RIGHT BEDTIME 08/08/18 09/02/19 History ammonium lactate 12 % lotion 1 applic TOPICAL BID #0 08/13/18 09/02/19 History cholecalciferol (vitamin D3) 25 1,000 unit PO BEDTIME 08/13/18 09/02/19 History mcg (1,000 unit) tablet (Vitamin D3) glipizide 10 mg tablet 10 mg PO BID 08/13/18 09/02/19 History lanolin-mineral oil lotion 1 applic TOPICAL BID 08/13/18 09/02/19 History (Eucerin Original) acetaminophen 325 mg tablet 650 mg PO Q6H PRN 03/07/19 09/02/19 History albuterol sulfate 90 mcg/actuation 2 puff INHALATION Q4H PRN 03/07/19 09/02/19 History aerosol inhaler (ProAir HFA) insulin glargine 100 unit/mL (3 26 unit SUBCUT BID 03/07/19 09/02/19 History mL) subcutaneous pen (Lantus Solostar U-100 Insulin) lorazepam 1 mg tablet (Ativan) 1 mg PO Q4HR PRN 03/07/19 09/02/19 History nystatin 100,000 unit/gram topical 1 applic TOPICAL TID PRN 03/08/19 09/02/19 History powder apixaban 2.5 mg tablet (Eliquis) 2.5 mg PO BID 03/24/19 09/02/19 History insulin lispro 100 unit/mL 1 dose SUBCUT TID 03/24/19 09/02/19 History subcutaneous pen (Humalog KwikPen (U-100) Insulin) gabapentin 300 mg capsule 300 mg PO BID 03/28/19 09/02/19 History lidocaine 4 % topical patch 1 patch TOPICAL DAILY 03/28/19 09/02/19 History polyethylene glycol 3350 17 gram 17 g PO DAILY 09/02/19 09/02/19 History oral powder packet quetiapine 25 mg tablet 25 mg PO BEDTIME 09/02/19 09/02/19 History quetiapine 50 mg tablet 50 mg PO BEDTIME 09/02/19 09/02/19 History sertraline 25 mg tablet 25 mg PO DAILY 09/02/19 09/02/19 History torsemide 20 mg tablet 20 mg PO DAILY 09/02/19 09/02/19 History tramadol 50 mg tablet 50 mg PO BEDTIME 09/02/19 09/02/19 History tramadol 50 mg tablet 50 mg PO PRN PRN 09/02/19 09/02/19 History doxycycline hyclate 100 mg capsule 100 mg PO BID #14 cap 09/03/19 Rx insulin aspart U-100 100 unit/mL 5 unit SUBCUT AC #15 ml 09/03/19 Rx (3 mL) subcutaneous pen (Novolog Flexpen U-100 Insulin aspart) Allergies Allergy/AdvReac Type Severity Reaction Status Date / Time Iodine and Iodide Containing Allergy Intermediate i get Verified 02/03/20 19:39 Produc spots all [IODINE AND IODIDE over my CONTAINING PRODUC] body Penicillins [PENICILLINS] Allergy Intermediate makes my Verified 02/03/20 19:39 bones and joints ache aspirin [ASPIRIN] Allergy Unknown Verified 02/03/20 19:39 meclizine [MECLIZINE] Allergy Unknown Verified 02/03/20 19:39 codeine [CODEINE] AdvReac Unknown gives me Verified 02/03/20 19:39 bloody nightmares potassium [POTASSIUM] AdvReac Unknown Verified 02/03/20 19:39 Review of Systems Review of Systems Narrative: Patient is obtunded, not speaking and unable to provide a meaningful review of systems. Exam Vital Signs (past 8 hours): - 04/30/21 23:20 04/30/21 23:43 04/30/21 23:46 Temperature 102.7 F H Pulse Rate 97 H 86 84 Respiratory Rate 24 21 20 Blood Pressure 99/54 L 103/56 L Pulse Oximetry 93 97 97 04/30/21 23:50 05/01/21 00:00 05/01/21 00:10 Temperature Pulse Rate 82 82 77 Respiratory Rate 20 21 17 Blood Pressure 101/54 L 95/52 L 103/51 L Pulse Oximetry 92 92 93 05/01/21 00:30 05/01/21 00:38 05/01/21 00:40 Temperature Pulse Rate 80 73 73 Respiratory Rate 18 17 17 Blood Pressure 103/52 L 104/54 L Pulse Oximetry 94 94 94 05/01/21 00:42 05/01/21 00:46 05/01/21 00:50 Temperature 101.2 F H Pulse Rate 73 69 70 Respiratory Rate 18 17 16 Blood Pressure 104/54 L 96/49 L 107/55 L Pulse Oximetry 94 94 94 05/01/21 01:00 05/01/21 01:10 05/01/21 01:20 Temperature Pulse Rate 64 64 64 Respiratory Rate 17 16 16 Blood Pressure 90/45 L 99/54 L 93/50 L Pulse Oximetry 94 95 94 05/01/21 01:24 05/01/21 01:30 05/01/21 01:31 Temperature Pulse Rate 65 81 82 Respiratory Rate 16 20 21 Blood Pressure 93/50 L 105/60 Pulse Oximetry 95 96 95 05/01/21 02:00 05/01/21 02:10 05/01/21 02:13 Temperature Pulse Rate 84 88 89 Respiratory Rate 21 29 H 29 H Blood Pressure 100/56 L 240/137 H 114/55 L Pulse Oximetry 92 93 05/01/21 02:14 05/01/21 02:30 05/01/21 02:31 Temperature 98.5 F Pulse Rate 89 92 H 93 H Respiratory Rate 18 22 22 Blood Pressure 114/55 L 115/57 L Pulse Oximetry 95 85 L 84 L 05/01/21 03:00 06/28/21 03:01 05/01/21 03:20 Temperature Pulse Rate 97 H 97 H 100 H Respiratory Rate 22 23 20 Blood Pressure 96/53 L 98/56 L Pulse Oximetry 94 92 96 05/01/21 06:02 Temperature 103 F H Pulse Rate 103 H Respiratory Rate 20 Blood Pressure 99/51 L Pulse Oximetry 94 Oxygen Delivery Method Room Air Narrative Exam Narrative: Gen: Morbidly obese 80 y.o. female, Obtunded, awakes to voice, but non-verbal HEENT: normocephalic, atraumatic, conjunctiva clear, sclera non-icteric, oral mucosa dry Neck: supple, full ROM, no JVD, trachea is midline Resp: Lungs CTA, non-labored breathing CV: RRR, no murmur or rubs Abd: obese, soft, non-tender, hypoactive BTs Skin: no lesions or rashes, dry and intact Neuro: GCS 6, Opens eyes to voice, unable to speak or follow directions Extremities: non pitting edema, unable to ambulate Psyche: Unable to assess Objective Labs Result Diagrams: 04/30/21 23:29 05/01/21 01:37 Labs: Laboratory Results - last 24 hr 04/30/21 04/30/21 04/30/21 23:29 23:29 23:29 WBC 15.2 H RBC 4.54 Hgb 14.1 Hct 41.7 MCV 91.9 MCH 31.1 MCHC 33.9 RDW 14.5 Plt Count 229 Neut % (Auto) 87.4 H Lymph % (Auto) 4.6 L [place] % (Auto) 7.1 Eos % (Auto) 0.4 L Baso % (Auto) 0.5 Neut # (Auto) 17399 H Lymph # (Auto) 700 L [place] # (Auto) 1100 H Eos # (Auto) 100 Baso # (Auto) 100 Sodium 134 L Potassium 4.3 Chloride 102 Carbon Dioxide 21 L BUN 36 H Creatinine 4.24 H Estimated GFR 10.1 L BUN/Creatinine Ratio 8.5 Glucose 297 H Lactate Calcium 10.2 Total Bilirubin 1.2 AST 21 ALT 14 Alkaline Phosphatase 90 Total Creatine Kinase 53 CK-MB (CK-2) TNP CK-MB (CK-2) Rel Index TNP Troponin I 0.064 H Total Protein 7.2 Albumin 3.8 Globulin 3.4 Albumin/Globulin Ratio 1.1 Lipase 27 Procalcitonin 0.82 H Urine Color Urine Appearance Urine pH Ur Specific [place] Urine Protein Urine Glucose (UA) Urine Ketones Urine Occult Blood Urine Nitrate Urine Bilirubin Urine Urobilinogen Ur Leukocyte Esterase Urine RBC Urine WBC Ur Squamous Epith Cells Urine Bacteria Ur Culture Indicated? SARS-CoV-2 (PCR) 04/30/21 04/30/21 04/30/21 23:40 23:40 23:50 WBC RBC Hgb Hct MCV MCH MCHC RDW Plt Count Neut % (Auto) Lymph % (Auto) [place] % (Auto) Eos % (Auto) Baso % (Auto) Neut # (Auto) Lymph # (Auto) [place] # (Auto) Eos # (Auto) Baso # (Auto) Sodium Potassium Chloride Carbon Dioxide BUN Creatinine Estimated GFR BUN/Creatinine Ratio Glucose Lactate 2.4 H Calcium Total Bilirubin AST ALT Alkaline Phosphatase Total Creatine Kinase CK-MB (CK-2) CK-MB (CK-2) Rel Index Troponin I Total Protein Albumin Globulin Albumin/Globulin Ratio Lipase Procalcitonin Urine Color Yellow Urine Appearance Slightly cloudy Urine pH 5.5 Ur Specific [place] 1.010 Urine Protein 2+ H Urine Glucose (UA) Negative Urine Ketones Negative Urine Occult Blood 3+ H Urine Nitrate Negative Urine Bilirubin Negative Urine Urobilinogen 0.2 Ur Leukocyte Esterase 2+ H Urine RBC 5-10/hpf H Urine WBC 30-100/hpf H Ur Squamous Epith Cells 0-1 /hpf Urine Bacteria Moderate (10-30) H Ur Culture Indicated? Culture not indicate SARS-CoV-2 (PCR) Negative 05/01/21 05/01/21 05/01/21 01:37 01:37 01:37 WBC RBC Hgb Hct MCV MCH MCHC RDW Plt Count Neut % (Auto) Lymph % (Auto) [place] % (Auto) Eos % (Auto) Baso % (Auto) Neut # (Auto) Lymph # (Auto) [place] # (Auto) Eos # (Auto) Baso # (Auto) Sodium 138 Potassium 4.5 Chloride 107 Carbon Dioxide 23 BUN 36 H Creatinine 4.28 H Estimated GFR 10.0 L BUN/Creatinine Ratio 8.4 Glucose 207 H Lactate 2.1 Calcium 9.5 Total Bilirubin AST ALT Alkaline Phosphatase Total Creatine Kinase CK-MB (CK-2) CK-MB (CK-2) Rel Index Troponin I 0.069 H Total Protein Albumin Globulin Albumin/Globulin Ratio Lipase Procalcitonin Urine Color Urine Appearance Urine pH Ur Specific [place] Urine Protein Urine Glucose (UA) Urine Ketones Urine Occult Blood Urine Nitrate Urine Bilirubin Urine Urobilinogen Ur Leukocyte Esterase Urine RBC Urine WBC Ur Squamous Epith Cells Urine Bacteria Ur Culture Indicated? SARS-CoV-2 (PCR) Assessment & Plan Assessment and plan (1) Acute kidney injury: Status: Acute (2) Urinary tract infection: Qualifiers: Urinary tract infection type: acute pyelonephritis Qualified Code(s): N10 - Acute pyelonephritis Status: Acute (3) Acute metabolic encephalopathy: Status: Acute (4) Edema extremities: Status: Acute (5) Chronic renal failure, stage 5: Status: Acute (6) Diabetes type 2, uncontrolled: Qualifiers: Glycemic state: with hyperglycemia Qualified Code(s): E11.65 - Type 2 diabetes mellitus with hyperglycemia Status: Acute (7) Morbid obesity with BMI of 50.0-59.9, adult: Status: Acute (8) Severe sepsis with acute organ dysfunction: Status: Acute Assessment & Plan narrative: Cassie Solares is Admitted as an inpatient to the ICU service due to the severity of illness and obtundation. 1. Severe sepsis with acute organ dysfunction, present on admission * in the setting of acute pyelonephritis and suspected weather associated hyperthermia 2. Acute kidney injury, superimposed on CKD stage 5, present on admission * Patient's creatinine is 4.289 and her normal creatinine and is between 2 and 3. Repeat creatinine in over several hours appears to be worsening slowly and will continue to monitor * She will receive IV normal saline at 175 mL per hour for 2 L and then reduce to 100 mL/hour * I requested the ED provider consult with Nephrology and they spoke to , [employer] Plugger who recommended hydration, treatment of her pylonephritis and close monitoring as dialysis is not indicated at this time. 3. Acute metabolic encephalopathy, present on admission * likely secondary to active infection and deteriorating renal function 4. Acute pylonephritis, present on admission * She was initiated on IV Ceftriaxone and this will be continued * Per ED provider, lactate improved after fluid hydration and antibiotic administration 5. Probable type 2 NH, present on admission * troponins were elevated on admission initially 0.064 at 11:29 p.m. followed by 0.069 at 1.37 * likely due to demand ischemia associated with her acute kidney injury * will trend q.6 hours next 1 do is at 0600 6. Diabetes type 2, uncontrolled * We will continue Lantus 62 units b.i.d. with low-dose correctional insulin * hemoglobin A1c is pending 7. Essential hypertension currently hypotensive * Oral hypertensives are currently being held because the patient is NPO 8. History of CVA anticoagulated on apixaban * apixaban is being held because the patient is nonresponsive and NPO * she will see of prophylactic anticoagulation with subcu heparin 5000 units twice daily due to her 1 NPO status and to compromised renal function 9. Morbid obesity with a BMI of 50%, present on admission * her weight presents challenges for nursing care, increased risk of pressure wounds, respiratory compromise VTE prophylaxis: Wells risk score: 3 heparin subcu 5000 units b.i.d. Consults: none Patient is admitted to the ICU under inpatient status with expected length of stay greater than 2 midnights due to severity of presenting symptoms, risk of adverse event, and complexity of treatment plan. FEN: IV NS at 175 ml/hour X 2 liters, then reduce to 100 ml/hour, NPO, C/BMP and magnesium in the am. Dispo: Unknown at this time Code Status: Full code per POLST Primary contact: Brian Daugherty, son unknown if he is her POA COVID-19 COVID-19 status: Negative Scores GCS [place] coma scale eye opening: To sound [place] coma scale verbal response: Sounds [place] coma scale motor response: None [place] coma scale total score: 6 SOFA Hypotension: MAP >= 70 mmHg Walter Coma Scale: 6-9 Renal: Creatinine 3.5-4.9 mg/dL or UOP <500 mL Wells' Criteria for PE Clinical signs and symptoms of DVT: No PE is #1 Dx or equally likely: No Heart rate > 100: No Immobilization at least 3 days or surg in previous 4 weeks: Yes History of PE or DVT: Yes Hemoptysis: No Malignancy w/Treatment within 6 months or palliative: No Wells' PE Score total: 3.0 Quality VTE Deep Vein Thrombosis/Pulmonary Embolism Present on Admission: No MIPS - Admit I confirm the patient?s Advance Care Plan is present, Code status is documented, Surrogate decision maker is in patient?s record [If Yes, STOP here]: Yes
--- NOTE | 2021-05-01 06:31 | PC.NURSE ---
When she arrived here cooling measures were initiated,removed blankets,had fan on her and warmed fluids iv were not used.
[2021-05-01 06:47] LABS: PCO2 ABG 32.5 mmHg (35-45)
[2021-05-01 06:48] LABS: Fractionated Inspired Oxygen 21; HCO3 ABG 20 mmol/L (22-26); Oxygen Saturation ABG 92 % (95-100); PO2 ABG 62 mmHg (80-100); TCO2 ABG 21 mmol/L (21-31)
--- NOTE | 2021-05-01 08:24 | DI.CT.S_ITS ---
PROCEDURE: CT ABDOMEN PELVIS WO CON INDICATIONS: right hydronephrosis, ALDEN, hx of stones on CT but not US TECHNIQUE: Noncontrast 5 mm thick sections acquired from the diaphragms to the symphysis. 5 mm coronal and sagittal reformats were then performed. For radiation dose reduction, the following was used: automated exposure control, adjustment of mA and/or kV according to patient size. COMPARISON: [facility], CT, CT ABDOMEN PELVIS WO CON, 06/09/2019, 11:22. FINDINGS: Image quality: Reduced by patient motion during image acquisition. ABDOMEN: Lung bases: Lung bases are clear. Heart size is normal. Solid organs: Liver is normal in size. Gallbladder contains posterior layering gallstones or sludge that is radiodense. The gallbladder does not appear inflamed. . Pancreas is normal in contours. Spleen is normal in size. No adrenal nodules. Kidneys are normal in size, without hydronephrosis or nephrolithiasis on the left, but there is [id number] hydronephrosis on the right associated with a renal pelvis collecting system stone that has enlarged from the prior study in June of 2019 and now measures 11 mm in maximal dimension instead of 9. This has also migrated to the ureteropelvic junction on the right, and the calculus measures approximately 530 Hounsfield units. A smaller 5 mm calculus is present within the collecting system of the right mid kidney, nonobstructive. . Peritoneum and bowel: Unenhanced bowel loops demonstrate normal wall thickness and caliber. No free fluid or air. Nodes and vessels: No retroperitoneal or mesenteric adenopathy by size criteria. Aorta and inferior vena cava are normal in caliber. Miscellaneous: No ventral hernias. PELVIS: Genitourinary: Bladder wall thickness is difficult to accurately assess-a Salgado catheter empties the bladder lumen.. Miscellaneous: No inguinal hernias or adenopathy. Bones: No suspicious bony lesions. No vertebral body compression fractures. IMPRESSION: 1. Interval further enlargement of a calculus at the ureteropelvic junction on the right which now measures up to 11 mm in diameter and is associated with new [id number] hydronephrosis. 2. A 5 mm nonobstructive calculus is seen within the collecting system of the right mid kidney. Left renal collecting system appears normal. 3. Posterior layering radiodense material within the gallbladder lumen without evidence of acute cholecystitis. This material could be radio stent sludge or stones. Dictated by: Terrence Sanches M.D. on 05/01/2021 at 9:50 Approved by: Terrence Sanches M.D. on 05/01/2021 at 9:56
[2021-05-01 08:38] LABS: Hemoglobin A1C% w Est Avg Glu 7.4 % (4.0-6.0)
[2021-05-01 08:47] LABS: NT-proBNP (BNP-Adult 18+) 2030 pg/mL (<450)
[2021-05-01] MEDS: INSULIN LISPRO 100 UNIT/ML 3ML VIAL SUBCUT ×2 (09:16→12:29)
[2021-05-01] MEDS: SODIUM CHLORIDE 0.9% 1,000 ML 100 ML IV ×2 (09:16→12:30)
[2021-05-01] MEDS: INSULIN GLARGINE 100 UNIT/ML 3ML PEN 40 UNIT SUBCUT (09:17)
[2021-05-01] MEDS: ACETAMINOPHEN 650 MG SUPP PR ×2 (10:24→18:28)
--- NOTE | 2021-05-01 11:17 | PC.NURSE ---
Addendum entered by Analisa Cancino R.N. 05/01/21 13:06: Temp decreased to 100.4 post Tylenol administration. Original Note: Day Shift Note Patient is very somnolent, partially opens eyes to voice but does not track. Pt is not answering any questions, not following any commands on AM assessment, no speech, GCS 10. Pupils equal and reactive to 3mm. Lungs clear but decreased bilaterally, SpO2 93-97% RA. NSR in the 70-80s. Brown discoloration to bilateral LEs, skin is scaly and dry. Yeast-appearing rash to groin and abdominal folds. Skin tear/abrasion to right buttock. Turning to offload pressure to buttocks. Salgado catheter in place and draining cloudy yellow urine. Bed alarm is on. Call light within reach. No PO intake of food/fluids/meds at this time due to somnolence, MD is aware. Temp 103.6 axillary, ice packs applied and rectal tylenol administered.
--- NOTE | 2021-05-01 13:44 | CM.DANOTE ---
Addendum entered by Andra Thomas 05/01/21 15:49: Received update from RN that provider attempting to transfer patient to higher level of care. CM team to continue to follow. Patient resides at [facility]. P: Anticipate transfer. VLADISLAV Parada Original Note: DCP ASSESSMENT: Patient is a 80 year-old female admitted for severe sepsis and acute kidney failure. PCP is Danielle Rodriguez. Primary payer is Medicare [facility] MANAGER IMMUNOLOGY Student attempted to see patient but, she was not responsive this am. Called and left a message with [facility] , would like to gather baseline functioning information and to verify if patient had Home Health Services through [facility]. Pending call back. PLAN: Anticipate return to [facility] when medically stable. CM Team to follow closely will try and confirm her baseline function and if patient has home health services. VLADISLAV Parada MSW Student Discharge Planning/Care Management CM Discharge Assessment Start: 05/01/21 10:47 Freq: Status: Active Protocol: Document 05/01/21 10:47 AL (Rec: 05/01/21 10:50 AL [id number]) Discharge Planning Assessment Assigned Accounting File Clerk VLADISLAV Mcdonough Student Contact Information Brian Daugherty, son Advance Directives? Yes Advance Directives on File Yes History Provided By Medical Record Has Patient been admitted in last 30 No days? Prior Living Arrangements Skilled Nurse Facility Comment [facility] Household Members caregiver Type of transporation used prior to Relies on Others admit Facility Name Admitted From: [facility] Willing to Return to Facility? Yes Independent with ADL's No Is patient alert and oriented? No Caregiver for Another No Barriers to Discharge No Comment Unless patient needs prolonged IV antibiotics. Discharge Plan Assisted Living Facility Transportation Arrangement Facility van? Whiteboard Updated in Patient Room with Yes name and ext. # of Accounting File Clerk Review Status In Process
[2021-05-01 13:48] LABS: Blood Urea Nitrogen 36 mg/dL (7-17); Calcium 9.1 mg/dL (8.4-10.2); Carbon Dioxide 22 mmol/L (22-32); Chloride 109 mmol/L (98-107); Estimated Glomerular Filt Rate 9.4 mL/min (>60); Glucose 123 mg/dL (80-110); HEMOLYSIS 27 (0-50); Sodium 138 mmol/L (137-145)
[2021-05-01 13:59] LABS: Troponin I 0.116 ng/mL (0.01-0.034)
[2021-05-01 15:02] LABS: Acinetobacter baumannii Not Detected (Not Detect); Candida albicans Not Detected (Not Detect); E. coli Not Detected (Not Detect); Enterobacter cloacae complex Not Detected (Not Detect); Enterobacteriaceae species Not Detected (Not Detect); Enterococcus species Not Detected (Not Detect); Haemophilus influenzae Not Detected (Not Detect); Listeria monocytogenes Not Detected (Not Detect); Neisseria meningitidis Not Detected (Not Detect); Proteus species Not Detected (Not Detect); Pseudomonas aeruginosa Not Detected (Not Detect); Serratia marcescens Not Detected (Not Detect); Staphylococcus species Not Detected (Not Detect); Streptococcus agalactiae (Gr B Detected (Not Detect); Streptococcus pneumonia Not Detected (Not Detect); Streptococcus pyogenes (Gr A) Not Detected (Not Detect); Streptococcus species Detected (Not Detect)
[2021-05-01 15:03] LABS: Candida glabrata Not Detected (Not Detect); Candida krusei Not Detected (Not Detect); Candida parapsilosis Not Detected (Not Detect); Candida tropicalis Not Detected (Not Detect)
--- NOTE | 2021-05-01 17:30 | PC.NURSE ---
Addendum entered by Sophie Brewer R.N. 05/01/21 22:32: Pt transferred to [facility] via ambulance. Pt was febrile on transfer, 101.2. Pt was sent with ice bags. Pt's troponin was 0.22 and critical, report given to RN at [facility] ([place]), pt is en route. Pt's critical troponin was communicated to RN at [facility]. Original Note: Evening Shift Note: Pt admitted for altered mental status. Pt opens eyes to voice, no verbal response. Pt does not maintain eye contact or track. Pt with FLACC 0. Pt with upper dentures, unable to open pt's mouth wide enough to remove dentures, will attempt again. Pt remains on room air, SPO2 94%. No cough appreciated. Pt with snoring souonds when head was below 30 degrees. Keeping HOB elevated to promote airway clearance. Lungs diminished but clear. RR 20s.Pt remains in SR, HR 80s. BP WNL 110s-120s/50s. Pt with edema in bilateral lower extremities. Pt with warm core and cool extremities. Low grade fever. Pt too somnolent to take food by mouth. BG 106-138. Hypoactive BTs. Pt with pyelonephritis. Pt has purulent drainage in catheter tubing. Dark yellow urine. Creatinine elevated. Pt is currently too somnolent to mobilize. Bedrest, turning side to side q 2 hours.
--- NOTE | 2021-05-01 20:29 | P.DN_ITS ---
Discharge Summary History of Illness Narrative: HPI per SHAUNA Arreola Hospitalist Cassie Solares is a 80-year-old female resident of [facility] Living with a complex medical history significant for hypertension, uncontrolled diabetes with retinopathy and neuropathy, chronic renal failure stage 4, asthma, bilateral lower extremity edema, long-term anticoagulation status post CVA and PE with apixaban, history of vitreous hemorrhage and glaucoma was brought to the emergency department due to being nonresponsive and having a high fever. Patient is not able to provide a history as she is unable to speak. She was apparently her normal self in the early evening, but then when she was checked upon later that evening she was nonstop responsive or talking. In the emergency department they did a head CT and a chest x-ray which was negative. I requested that she undergo a renal ultrasound given that her renal function was significantly worsened. Per the emergency room provider he stated that she had pyelonephritis and she has an equivocal UA indicating a urinary tract infection. Patient's T-max was 102.7?, temperature currently is 98.5, blood pressure 1 4/55, heart rate 89, respiratory rate 18, oxygen saturation of 95% on room air, she weighs 109 kg with a BMI of 50.5. She has a white count of 15.2, hemoglobin is 14.1 hematocrit 41.7 platelet count 229 with a left shift of 13,000, sodium is 138 potassium 4.5, chloride 107 bicarb 23, BUN 36, creatinine 4.2 with a EGFR of 10, glucose is 207, calcium 9.5. Her troponins were elevated at at 11:29 p.m. her initial troponin was 0.064 then at 1:37 a.m. it was 0.069. Hospital Course Date of Admission: 05/01/21 06:08 Primary care provider: Danielle Rodriguez MD Consults: 05/01/21 07:36 Consult to Respiratory Therapy Evaluate & Treat Comment: Physician Instructions: Evaluate and treat Discharge provider: SHAUNA Arreola, Hospitalist Discharge Diagnosis: Severe sepsis in the setting of multi organ failure Acute metabolic encephalopathy in the setting of severe sepsis Acute Kidney injury in the setting of unilateral right acute pylonephritis with a history of renal calculi Type 2 [place] in the setting of acute kidney injury Hospital Course: Cassie Solares was admitted overnight into the ICU for severe sepsis in the setting of multi organ failure including a creatinine of a 4.24 with an EGFR of 10 and suspected hyperthermia associated with current weather conditions. Evaluation of the patient's chest x-ray and head CT were negative in the ED. Subsequent request for renal ultrasound and consultation with Nephrology indicated that she had a right-sided pyelonephritis. Was later found that she has had history of renal calculi and decision was made during the day that the patient needed to have further workup and treatment by Urology. She also grew out group B strep in her blood cultures and will likely need a [place] which is not available at this facility. Creatinine continues to trend up as well as her troponins which initially presented as 0.064 and is now 0.116. Last night and today she was treated with IV ceftriaxone 1 mg. Over the course of her short stay, the patient's encephalopathy improved but she is still obtunded and difficult to arouse. Arrangements are made during the day for transfer of this patient to [facility] and the patient has been waiting for a bed to open up. Objective Labs Result Diagrams: 04/30/21 23:29 05/01/21 13:09 Labs: Laboratory Results - last 24 hr 04/30/21 04/30/21 04/30/21 23:29 23:29 23:29 WBC 15.2 H RBC 4.54 Hgb 14.1 Hct 41.7 MCV 91.9 MCH 31.1 MCHC 33.9 RDW 14.5 Plt Count 229 Neut % (Auto) 87.4 H Lymph % (Auto) 4.6 L Reagan % (Auto) 7.1 Eos % (Auto) 0.4 L Baso % (Auto) 0.5 Neut # (Auto) 81900 H Lymph # (Auto) 700 L Reagan # (Auto) 1100 H Eos # (Auto) 100 Baso # (Auto) 100 ABG pH ABG pCO2 ABG pO2 ABG HCO3 ABG Total CO2 ABG O2 Saturation ABG Base Excess FiO2 Sodium 134 L Potassium 4.3 Chloride 102 Carbon Dioxide 21 L BUN 36 H Creatinine 4.24 H Estimated GFR 10.1 L BUN/Creatinine Ratio 8.5 Glucose 297 H Hemoglobin A1c Lactate Calcium 10.2 Total Bilirubin 1.2 AST 21 ALT 14 Alkaline Phosphatase 90 Total Creatine Kinase 53 CK-MB (CK-2) TNP CK-MB (CK-2) Rel Index TNP Troponin I 0.064 H NT-Pro-B Natriuret Pep Total Protein 7.2 Albumin 3.8 Globulin 3.4 Albumin/Globulin Ratio 1.1 Lipase 27 Procalcitonin 0.82 H Urine Color Urine Appearance Urine pH Ur Specific Sturgeon Urine Protein Urine Glucose (UA) Urine Ketones Urine Occult Blood Urine Nitrate Urine Bilirubin Urine Urobilinogen Ur Leukocyte Esterase Urine RBC Urine WBC Ur Squamous Epith Cells Urine Bacteria Ur Culture Indicated? Nasal Screen MRSA (PCR) A. baumannii (PCR) Sherri albicans (PCR) C. glabrata (PCR) C. krusei (PCR) C. parapsilosis (PCR) C. tropicalis (PCR) SARS-CoV-2 (PCR) Enterobacteriac sp PCR E. cloacae complex PCR Enterococcus sp PCR E. coli (PCR) H. influenzae (PCR) Klebsiella oxytoca PCR Klebsiella pneumoniae List. monocytogenes PCR N. meningitidis (PCR) Proteus species (PCR) Serratia marcescens PCR Staphylococcus sp PCR Staph aureus (PCR) mecA-Methicil Res Gene Streptococcus sp PCR Group A Strep (PCR) Strep agalactiae (PCR) Strep pneumoniae (PCR) P. aeruginosa (PCR) Donny/B-Vanco Res Genes KPC-Carbap Res Gene PCR 04/30/21 04/30/21 04/30/21 23:29 23:40 23:40 WBC RBC Hgb Hct MCV MCH MCHC RDW Plt Count Neut % (Auto) Lymph % (Auto) Reagan % (Auto) Eos % (Auto) Baso % (Auto) Neut # (Auto) Lymph # (Auto) Reagan # (Auto) Eos # (Auto) Baso # (Auto) ABG pH ABG pCO2 ABG pO2 ABG HCO3 ABG Total CO2 ABG O2 Saturation ABG Base Excess FiO2 Sodium Potassium Chloride Carbon Dioxide BUN Creatinine Estimated GFR BUN/Creatinine Ratio Glucose Hemoglobin A1c 7.4 H Lactate 2.4 H Calcium Total Bilirubin AST ALT Alkaline Phosphatase Total Creatine Kinase CK-MB (CK-2) CK-MB (CK-2) Rel Index Troponin I NT-Pro-B Natriuret Pep Total Protein Albumin Globulin Albumin/Globulin Ratio Lipase Procalcitonin Urine Color Yellow Urine Appearance Slightly cloudy Urine pH 5.5 Ur Specific Sturgeon 1.010 Urine Protein 2+ H Urine Glucose (UA) Negative Urine Ketones Negative Urine Occult Blood 3+ H Urine Nitrate Negative Urine Bilirubin Negative Urine Urobilinogen 0.2 Ur Leukocyte Esterase 2+ H Urine RBC 5-10/hpf H Urine WBC 30-100/hpf H Ur Squamous Epith Cells 0-1 /hpf Urine Bacteria Moderate (10-30) H Ur Culture Indicated? Culture not indicate Nasal Screen MRSA (PCR) A. baumannii (PCR) Sherri albicans (PCR) C. glabrata (PCR) C. krusei (PCR) C. parapsilosis (PCR) C. tropicalis (PCR) SARS-CoV-2 (PCR) Enterobacteriac sp PCR E. cloacae complex PCR Enterococcus sp PCR E. coli (PCR) H. influenzae (PCR) Klebsiella oxytoca PCR Klebsiella pneumoniae List. monocytogenes PCR N. meningitidis (PCR) Proteus species (PCR) Serratia marcescens PCR Staphylococcus sp PCR Staph aureus (PCR) mecA-Methicil Res Gene Streptococcus sp PCR Group A Strep (PCR) Strep agalactiae (PCR) Strep pneumoniae (PCR) P. aeruginosa (PCR) Donny/B-Vanco Res Genes KPC-Carbap Res Gene PCR 04/30/21 04/30/21 05/01/21 23:40 23:50 01:37 WBC RBC Hgb Hct MCV MCH MCHC RDW Plt Count Neut % (Auto) Lymph % (Auto) Reagan % (Auto) Eos % (Auto) Baso % (Auto) Neut # (Auto) Lymph # (Auto) Reagan # (Auto) Eos # (Auto) Baso # (Auto) ABG pH ABG pCO2 ABG pO2 ABG HCO3 ABG Total CO2 ABG O2 Saturation ABG Base Excess FiO2 Sodium Potassium Chloride Carbon Dioxide BUN Creatinine Estimated GFR BUN/Creatinine Ratio Glucose Hemoglobin A1c Lactate Calcium Total Bilirubin AST ALT Alkaline Phosphatase Total Creatine Kinase CK-MB (CK-2) CK-MB (CK-2) Rel Index Troponin I 0.069 H NT-Pro-B Natriuret Pep Total Protein Albumin Globulin Albumin/Globulin Ratio Lipase Procalcitonin Urine Color Urine Appearance Urine pH Ur Specific Stur[place] Urine Protein Urine Glucose (UA) Urine Ketones Urine Occult Blood Urine Nitrate Urine Bilirubin Urine Urobilinogen Ur Leukocyte Esterase Urine RBC Urine WBC Ur Squamous Epith Cells Urine Bacteria Ur Culture Indicated? Nasal Screen MRSA (PCR) A. baumannii (PCR) Not detected Sherri albicans (PCR) Not detected C. glabrata (PCR) Not detected C. krusei (PCR) Not detected C. parapsilosis (PCR) Not detected C. tropicalis (PCR) Not detected SARS-CoV-2 (PCR) Negative Enterobacteriac sp PCR Not detected E. cloacae complex PCR Not detected Enterococcus sp PCR Not detected E. coli (PCR) Not detected H. influenzae (PCR) Not detected Klebsiella oxytoca PCR Not detected Klebsiella pneumoniae Not detected List. monocytogenes PCR Not detected N. meningitidis (PCR) Not detected Proteus species (PCR) Not detected Serratia marcescens PCR Not detected Staphylococcus sp PCR Not detected Staph aureus (PCR) Not detected mecA-Methicil Res Gene Not Reportable Streptococcus sp PCR Detected H Group A Strep (PCR) Not detected Strep agalactiae (PCR) Detected H Strep pneumoniae (PCR) Not detected P. aeruginosa (PCR) Not detected Donny/B-Vanco Res Genes Not Reportable KPC-Carbap Res Gene PCR Not Reportable 05/01/21 05/01/21 05/01/21 01:37 01:37 01:37 WBC RBC Hgb Hct MCV MCH MCHC RDW Plt Count Neut % (Auto) Lymph % (Auto) Reagan % (Auto) Eos % (Auto) Baso % (Auto) Neut # (Auto) Lymph # (Auto) Reagan # (Auto) Eos # (Auto) Baso # (Auto) ABG pH ABG pCO2 ABG pO2 ABG HCO3 ABG Total CO2 ABG O2 Saturation ABG Base Excess FiO2 Sodium 138 Potassium 4.5 Chloride 107 Carbon Dioxide 23 BUN 36 H Creatinine 4.28 H Estimated GFR 10.0 L BUN/Creatinine Ratio 8.4 Glucose 207 H Hemoglobin A1c Lactate 2.1 Calcium 9.5 Total Bilirubin AST ALT Alkaline Phosphatase Total Creatine Kinase CK-MB (CK-2) CK-MB (CK-2) Rel Index Troponin I NT-Pro-B Natriuret Pep 2030 H Total Protein Albumin Globulin Albumin/Globulin Ratio Lipase Procalcitonin Urine Color Urine Appearance Urine pH Ur Specific Stur[place] Urine Protein Urine Glucose (UA) Urine Ketones Urine Occult Blood Urine Nitrate Urine Bilirubin Urine Urobilinogen Ur Leukocyte Esterase Urine RBC Urine WBC Ur Squamous Epith Cells Urine Bacteria Ur Culture Indicated? Nasal Screen MRSA (PCR) A. baumannii (PCR) Sherri albicans (PCR) C. glabrata (PCR) C. krusei (PCR) C. parapsilosis (PCR) C. tropicalis (PCR) SARS-CoV-2 (PCR) Enterobacteriac sp PCR E. cloacae complex PCR Enterococcus sp PCR E. coli (PCR) H. influenzae (PCR) Klebsiella oxytoca PCR Klebsiella pneumoniae List. monocytogenes PCR N. meningitidis (PCR) Proteus species (PCR) Serratia marcescens PCR Staphylococcus sp PCR Staph aureus (PCR) mecA-Methicil Res Gene Streptococcus sp PCR Group A Strep (PCR) Strep agalactiae (PCR) Strep pneumoniae (PCR) P. aeruginosa (PCR) Donny/B-Vanco Res Genes KPC-Carbap Res Gene PCR 05/01/21 05/01/21 05/01/21 06:11 06:25 13:09 WBC RBC Hgb Hct MCV MCH MCHC RDW Plt Count Neut % (Auto) Lymph % (Auto) Reagan % (Auto) Eos % (Auto) Baso % (Auto) Neut # (Auto) Lymph # (Auto) Reagan # (Auto) Eos # (Auto) Baso # (Auto) ABG pH 7.40 ABG pCO2 32.5 L ABG pO2 62 L ABG HCO3 20 L ABG Total CO2 21 ABG O2 Saturation 92 L ABG Base Excess -5.0 L FiO2 21 Sodium 138 Potassium 4.0 Chloride 109 H Carbon Dioxide 22 BUN 36 H Creatinine 4.51 H Estimated GFR 9.4 L BUN/Creatinine Ratio 8.0 Glucose 123 H Hemoglobin A1c Lactate Calcium 9.1 Total Bilirubin AST ALT Alkaline Phosphatase Total Creatine Kinase CK-MB (CK-2) CK-MB (CK-2) Rel Index Troponin I 0.116 H NT-Pro-B Natriuret Pep Total Protein Albumin Globulin Albumin/Globulin Ratio Lipase Procalcitonin Urine Color Urine Appearance Urine pH Ur Specific [place] Urine Protein Urine Glucose (UA) Urine Ketones Urine Occult Blood Urine Nitrate Urine Bilirubin Urine Urobilinogen Ur Leukocyte Esterase Urine RBC Urine WBC Ur Squamous Epith Cells Urine Bacteria Ur Culture Indicated? Nasal Screen MRSA (PCR) Negative for mrsa A. baumannii (PCR) Sherri albicans (PCR) C. glabrata (PCR) C. krusei (PCR) C. parapsilosis (PCR) C. tropicalis (PCR) SARS-CoV-2 (PCR) Enterobacteriac sp PCR E. cloacae complex PCR Enterococcus sp PCR E. coli (PCR) H. influenzae (PCR) Klebsiella oxytoca PCR Klebsiella pneumoniae List. monocytogenes PCR N. meningitidis (PCR) Proteus species (PCR) Serratia marcescens PCR Staphylococcus sp PCR Staph aureus (PCR) mecA-Methicil Res Gene Streptococcus sp PCR Group A Strep (PCR) Strep agalactiae (PCR) Strep pneumoniae (PCR) P. aeruginosa (PCR) Donny/B-Vanco Res Genes KPC-Carbap Res Gene PCR
--- NOTE | 2021-05-01 20:54 | P.DS_ITS ---
History of Present Illness History of Present Illness Date Patient Seen: 05/01/21 Time Patient Seen: 20:58 Date of Onset of Symptoms: 04/29/21 Chief complaint: Nonresponsive, concerning for heat stroke Narrative: HPI per SHAUNA Arreola, Hospitalist ADDENDUM: Dayton Ross MD I have seen and evaluated the patient today. This is a 80-year-old female with hypertension, diabetes, CKD 4, resident of an assisted living facility, prior CV A and PE on anticoagulation admitted with sepsis. Imaging today revealed hydronephrosis on the right with an 11 mm UPJ obstructing stone. Consultation with urology was obtained with Dr. Vazquez. The patient is currently pending transfer to [facility] for urologic interventions , however they are short on beds. The patient is slowly improving with her encephalopathy but she is still very difficult to Arouse. Creatinine also continues to trend up , although slowly to 4.5. her baseline creatinine appears to be around 2.0.She remains on ceftriaxone. Blood cultures were positive for a group B strep. Addendum Documented By:Dayton Ross D.O.05/01/21 1806Addendum Signed By:<Electronically signed by Dayton Ross D.O.>05/01/21 1806 History of Present Illness History of Present Illness Date Patient Seen: 05/01/21 Time Patient Seen: 05:30 Chief complaint: Non-responsive, unable to speak Narrative: Cassie Solares is a 80-year-old female resident of [facility] with a complex medical history significant for hypertension, uncontrolled diabetes with retinopathy and neuropathy, chronic renal failure stage 4, asthma, bilateral lower extremity edema, long-term anticoagulation status post CVA and PE with apixaban, history of vitreous hemorrhage and glaucoma was brought to the emergency department due to being nonresponsive and having a high fever. Patient is not able to provide a history as she is unable to speak. She was apparently her normal self in the early evening, but then when she was checked upon later that evening she was nonstop responsive or talking. In the emergency department they did a head CT and a chest x-ray which was negative. I requested that she undergo a renal ultrasound given that her renal function was significantly worsened. Per the emergency room provider he stated that she had pyelonephritis and she has an equivocal UA indicating a urinary tract infection. Patient's T-max was 102.7?, temperature currently is 98.5, blood pressure 1 4/55, heart rate 89, respiratory rate 18, oxygen saturation of 95% on room air, she weighs 109 kg with a BMI of 50.5. She has a white count of 15.2, hemoglobin is 14.1 hematocrit 41.7 platelet count 229 with a left shift of 13,000, sodium is 138 potassium 4.5, chloride 107 bicarb 23, BUN 36, creatinine 4.2 with a EGFR of 10, glucose is 207, calcium 9.5. Her troponins were elevated at at 11:29 p.m. her initial troponin was 0.064 then at 1:37 a.m. it was 0.069. Discharge Providers Provider Date of admission: 05/01/21 06:08 Discharge Date: 05/01/21 Primary care physician: Danielle Rodriguez MD Consults: 05/01/21 07:36 Consult to Respiratory Therapy Evaluate & Treat Comment: Physician Instructions: Evaluate and treat Discharge provider: SHAUNA Arreola Summary Hospital Course Discharge Diagnosis: Discharge Diagnosis: Severe sepsis in the setting of multi organ failure Acute metabolic encephalopathy in the setting of severe sepsis Acute Kidney injury in the setting of unilateral right acute pylonephritis with a history of renal calculi Type 2 DE in the setting of acute kidney injury Hospital Course: Cassie Solares was admitted overnight into the ICU for severe sepsis in the setting of multi organ failure including a creatinine of a 4.24 with an EGFR of 10 and suspected hyperthermia associated with current weather conditions. Ev aluation of the patient's chest x-ray and head CT were negative in the ED. Subsequent request for renal ultrasound and consultation with Nephrology indicated that she had a right-sided pyelonephritis. Was later found that she has had history of renal calculi and decision was made during the day that the patient needed to have further workup and treatment by Urology. She also grew out group B strep in her blood cultures and will likely need a [place] which is not available at this facility. Creatinine continues to trend up as well as her troponins which initially presented as 0.064 and is now 0.116. Last night and today she was treated with IV ceftriaxone 1 mg. Over the course of her short s jaden, the patient's encephalopathy improved but she is still obtunded and difficult to arouse. Arrangements are made during the day for transfer of this patient to [facility] and the patient has been waiting for a bed to open up. Status at Discharge Cognitive/behavioral status at discharge: confused Functional status at discharge: bed bound Overall status at discharge: patient is not back to baseline Exam Vital Signs (past 8 hours): - 05/01/21 14:00 05/01/21 14:06 05/01/21 14:37 Temperature 98.8 F Pulse Rate 86 Respiratory Rate 32 H Blood Pressure Pulse Oximetry 96 96 05/01/21 16:00 05/01/21 18:00 05/01/21 18:28 Temperature 98.6 F 104.4 F H Pulse Rate 93 H Respiratory Rate 20 Blood Pressure 115/53 L Pulse Oximetry 92 93 05/01/21 18:38 05/01/21 19:27 Temperature 103.1 F H 101.2 F H Pulse Rate Respiratory Rate Blood Pressure Pulse Oximetry Oxygen Delivery Method Room Air Oxygen Flow Rate 0 Narrative Exam Narrative: Gen: Morbidly obese 80 y.o. female, obtunded but responds to voice HEENT: normocephalic, atraumatic, conjunctiva clear, sclera non-icteric, oral mucosa pink and moist Neck: supple, full ROM, no JVD, trachea is midline Resp: Lungs w/rhonchi, non-labored breathing CV: RRR, no murmur or rubs Abd: soft, non-tender, normoactive BTs Skin: no lesions or rashes, dry and intact Neuro: GCS: 8, arousable, unable to speak Extremities: moves left upper extremity, legs appear to have scarring from PAD Psyche: normal mood and affect. Objective Labs Result Diagrams: 04/30/21 23:29 05/01/21 13:09 Labs: Laboratory Results - last 24 hr 04/30/21 04/30/21 04/30/21 23:29 23:29 23:29 WBC 15.2 H RBC 4.54 Hgb 14.1 Hct 41.7 MCV 91.9 MCH 31.1 MCHC 33.9 RDW 14.5 Plt Count 229 Neut % (Auto) 87.4 H Lymph % (Auto) 4.6 L Tate % (Auto) 7.1 Eos % (Auto) 0.4 L Baso % (Auto) 0.5 Neut # (Auto) 25359 H Lymph # (Auto) 700 L Tate # (Auto) 1100 H Eos # (Auto) 100 Baso # (Auto) 100 ABG pH ABG pCO2 ABG pO2 ABG HCO3 ABG Total CO2 ABG O2 Saturation ABG Base Excess FiO2 Sodium 134 L Potassium 4.3 Chloride 102 Carbon Dioxide 21 L BUN 36 H Creatinine 4.24 H Estimated GFR 10.1 L BUN/Creatinine Ratio 8.5 Glucose 297 H Hemoglobin A1c Lactate Calcium 10.2 Total Bilirubin 1.2 AST 21 ALT 14 Alkaline Phosphatase 90 Total Creatine Kinase 53 CK-MB (CK-2) TNP CK-MB (CK-2) Rel Index TNP Troponin I 0.064 H NT-Pro-B Natriuret Pep Total Protein 7.2 Albumin 3.8 Globulin 3.4 Albumin/Globulin Ratio 1.1 Lipase 27 Procalcitonin 0.82 H Urine Color Urine Appearance Urine pH Ur Specific [place] Urine Protein Urine Glucose (UA) Urine Ketones Urine Occult Blood Urine Nitrate Urine Bilirubin Urine Urobilinogen Ur Leukocyte Esterase Urine RBC Urine WBC Ur Squamous Epith Cells Urine Bacteria Ur Culture Indicated? Nasal Screen MRSA (PCR) A. baumannii (PCR) Sherri albicans (PCR) C. glabrata (PCR) C. krusei (PCR) C. parapsilosis (PCR) C. tropicalis (PCR) SARS-CoV-2 (PCR) Enterobacteriac sp PCR E. cloacae complex PCR Enterococcus sp PCR E. coli (PCR) H. influenzae (PCR) Klebsiella oxytoca PCR Klebsiella pneumoniae List. monocytogenes PCR N. meningitidis (PCR) Proteus species (PCR) Serratia marcescens PCR Staphylococcus sp PCR Staph aureus (PCR) mecA-Methicil Res Gene Streptococcus sp PCR Group A Strep (PCR) Strep agalactiae (PCR) Strep pneumoniae (PCR) P. aeruginosa (PCR) Donny/B-Vanco Res Genes KPC-Carbap Res Gene PCR 04/30/21 04/30/21 04/30/21 23:29 23:40 23:40 WBC RBC Hgb Hct MCV MCH MCHC RDW Plt Count Neut % (Auto) Lymph % (Auto) Tate % (Auto) Eos % (Auto) Baso % (Auto) Neut # (Auto) Lymph # (Auto) Tate # (Auto) Eos # (Auto) Baso # (Auto) ABG pH ABG pCO2 ABG pO2 ABG HCO3 ABG Total CO2 ABG O2 Saturation ABG Base Excess FiO2 Sodium Potassium Chloride Carbon Dioxide BUN Creatinine Estimated GFR BUN/Creatinine Ratio Glucose Hemoglobin A1c 7.4 H Lactate 2.4 H Calcium Total Bilirubin AST ALT Alkaline Phosphatase Total Creatine Kinase CK-MB (CK-2) CK-MB (CK-2) Rel Index Troponin I NT-Pro-B Natriuret Pep Total Protein Albumin Globulin Albumin/Globulin Ratio Lipase Procalcitonin Urine Color Yellow Urine Appearance Slightly cloudy Urine pH 5.5 Ur Specific [place] 1.010 Urine Protein 2+ H Urine Glucose (UA) Negative Urine Ketones Negative Urine Occult Blood 3+ H Urine Nitrate Negative Urine Bilirubin Negative Urine Urobilinogen 0.2 Ur Leukocyte Esterase 2+ H Urine RBC 5-10/hpf H Urine WBC 30-100/hpf H Ur Squamous Epith Cells 0-1 /hpf Urine Bacteria Moderate (10-30) H Ur Culture Indicated? Culture not indicate Nasal Screen MRSA (PCR) A. baumannii (PCR) Sherri albicans (PCR) C. glabrata (PCR) C. krusei (PCR) C. parapsilosis (PCR) C. tropicalis (PCR) SARS-CoV-2 (PCR) Enterobacteriac sp PCR E. cloacae complex PCR Enterococcus sp PCR E. coli (PCR) H. influenzae (PCR) Klebsiella oxytoca PCR Klebsiella pneumoniae List. monocytogenes PCR N. meningitidis (PCR) Proteus species (PCR) Serratia marcescens PCR Staphylococcus sp PCR Staph aureus (PCR) mecA-Methicil Res Gene Streptococcus sp PCR Group A Strep (PCR) Strep agalactiae (PCR) Strep pneumoniae (PCR) P. aeruginosa (PCR) Donny/B-Vanco Res Genes KPC-Carbap Res Gene PCR 04/30/21 04/30/21 05/01/21 23:40 23:50 01:37 WBC RBC Hgb Hct MCV MCH MCHC RDW Plt Count Neut % (Auto) Lymph % (Auto) Tate % (Auto) Eos % (Auto) Baso % (Auto) Neut # (Auto) Lymph # (Auto) Tate # (Auto) Eos # (Auto) Baso # (Auto) ABG pH ABG pCO2 ABG pO2 ABG HCO3 ABG Total CO2 ABG O2 Saturation ABG Base Excess FiO2 Sodium Potassium Chloride Carbon Dioxide BUN Creatinine Estimated GFR BUN/Creatinine Ratio Glucose Hemoglobin A1c Lactate Calcium Total Bilirubin AST ALT Alkaline Phosphatase Total Creatine Kinase CK-MB (CK-2) CK-MB (CK-2) Rel Index Troponin I 0.069 H NT-Pro-B Natriuret Pep Total Protein Albumin Globulin Albumin/Globulin Ratio Lipase Procalcitonin Urine Color Urine Appearance Urine pH Ur Specific [place] Urine Protein Urine Glucose (UA) Urine Ketones Urine Occult Blood Urine Nitrate Urine Bilirubin Urine Urobilinogen Ur Leukocyte Esterase Urine RBC Urine WBC Ur Squamous Epith Cells Urine Bacteria Ur Culture Indicated? Nasal Screen MRSA (PCR) A. baumannii (PCR) Not detected Sherri albicans (PCR) Not detected C. glabrata (PCR) Not detected C. krusei (PCR) Not detected C. parapsilosis (PCR) Not detected C. tropicalis (PCR) Not detected SARS-CoV-2 (PCR) Negative Enterobacteriac sp PCR Not detected E. cloacae complex PCR Not detected Enterococcus sp PCR Not detected E. coli (PCR) Not detected H. influenzae (PCR) Not detected Klebsiella oxytoca PCR Not detected Klebsiella pneumoniae Not detected List. monocytogenes PCR Not detected N. meningitidis (PCR) Not detected Proteus species (PCR) Not detected Serratia marcescens PCR Not detected Staphylococcus sp PCR Not detected Staph aureus (PCR) Not detected mecA-Methicil Res Gene Not Reportable Streptococcus sp PCR Detected H Group A Strep (PCR) Not detected Strep agalactiae (PCR) Detected H Strep pneumoniae (PCR) Not detected P. aeruginosa (PCR) Not detected Donny/B-Vanco Res Genes Not Reportable KPC-Carbap Res Gene PCR Not Reportable 05/01/21 05/01/21 05/01/21 01:37 01:37 01:37 WBC RBC Hgb Hct MCV MCH MCHC RDW Plt Count Neut % (Auto) Lymph % (Auto) Tate % (Auto) Eos % (Auto) Baso % (Auto) Neut # (Auto) Lymph # (Auto) Tate # (Auto) Eos # (Auto) Baso # (Auto) ABG pH ABG pCO2 ABG pO2 ABG HCO3 ABG Total CO2 ABG O2 Saturation ABG Base Excess FiO2 Sodium 138 Potassium 4.5 Chloride 107 Carbon Dioxide 23 BUN 36 H Creatinine 4.28 H Estimated GFR 10.0 L BUN/Creatinine Ratio 8.4 Glucose 207 H Hemoglobin A1c Lactate 2.1 Calcium 9.5 Total Bilirubin AST ALT Alkaline Phosphatase Total Creatine Kinase CK-MB (CK-2) CK-MB (CK-2) Rel Index Troponin I NT-Pro-B Natriuret Pep 2030 H Total Protein Albumin Globulin Albumin/Globulin Ratio Lipase Procalcitonin Urine Color Urine Appearance Urine pH Ur Specific [place] Urine Protein Urine Glucose (UA) Urine Ketones Urine Occult Blood Urine Nitrate Urine Bilirubin Urine Urobilinogen Ur Leukocyte Esterase Urine RBC Urine WBC Ur Squamous Epith Cells Urine Bacteria Ur Culture Indicated? Nasal Screen MRSA (PCR) A. baumannii (PCR) Sherri albicans (PCR) C. glabrata (PCR) C. krusei (PCR) C. parapsilosis (PCR) C. tropicalis (PCR) SARS-CoV-2 (PCR) Enterobacteriac sp PCR E. cloacae complex PCR Enterococcus sp PCR E. coli (PCR) H. influenzae (PCR) Klebsiella oxytoca PCR Klebsiella pneumoniae List. monocytogenes PCR N. meningitidis (PCR) Proteus species (PCR) Serratia marcescens PCR Staphylococcus sp PCR Staph aureus (PCR) mecA-Methicil Res Gene Streptococcus sp PCR Group A Strep (PCR) Strep agalactiae (PCR) Strep pneumoniae (PCR) P. aeruginosa (PCR) Donny/B-Vanco Res Genes KPC-Carbap Res Gene PCR 05/01/21 05/01/21 05/01/21 06:11 06:25 13:09 WBC RBC Hgb Hct MCV MCH MCHC RDW Plt Count Neut % (Auto) Lymph % (Auto) Tate % (Auto) Eos % (Auto) Baso % (Auto) Neut # (Auto) Lymph # (Auto) Tate # (Auto) Eos # (Auto) Baso # (Auto) ABG pH 7.40 ABG pCO2 32.5 L ABG pO2 62 L ABG HCO3 20 L ABG Total CO2 21 ABG O2 Saturation 92 L ABG Base Excess -5.0 L FiO2 21 Sodium 138 Potassium 4.0 Chloride 109 H Carbon Dioxide 22 BUN 36 H Creatinine 4.51 H Estimated GFR 9.4 L BUN/Creatinine Ratio 8.0 Glucose 123 H Hemoglobin A1c Lactate Calcium 9.1 Total Bilirubin AST ALT Alkaline Phosphatase Total Creatine Kinase CK-MB (CK-2) CK-MB (CK-2) Rel Index Troponin I 0.116 H NT-Pro-B Natriuret Pep Total Protein Albumin Globulin Albumin/Globulin Ratio Lipase Procalcitonin Urine Color Urine Appearance Urine pH Ur Specific [place] Urine Protein Urine Glucose (UA) Urine Ketones Urine Occult Blood Urine Nitrate Urine Bilirubin Urine Urobilinogen Ur Leukocyte Esterase Urine RBC Urine WBC Ur Squamous Epith Cells Urine Bacteria Ur Culture Indicated? Nasal Screen MRSA (PCR) Negative for mrsa A. baumannii (PCR) Sherri albicans (PCR) C. glabrata (PCR) C. krusei (PCR) C. parapsilosis (PCR) C. tropicalis (PCR) SARS-CoV-2 (PCR) Enterobacteriac sp PCR E. cloacae complex PCR Enterococcus sp PCR E. coli (PCR) H. influenzae (PCR) Klebsiella oxytoca PCR Klebsiella pneumoniae List. monocytogenes PCR N. meningitidis (PCR) Proteus species (PCR) Serratia marcescens PCR Staphylococcus sp PCR Staph aureus (PCR) mecA-Methicil Res Gene Streptococcus sp PCR Group A Strep (PCR) Strep agalactiae (PCR) Strep pneumoniae (PCR) P. aeruginosa (PCR) Donny/B-Vanco Res Genes KPC-Carbap Res Gene PCR PFSH Medical History Acute kidney injury superimposed on chronic kidney disease Asthma Bronchitis Cataract Chronic anticoagulation Chronic pain Chronic renal failure, stage 4 (severe) CVA (cerebral vascular accident) Depression Diabetes Diabetes type 2, uncontrolled Diabetic neuropathy Diabetic retinopathy Hypertension Lower extremity edema Morbid obesity Morbid obesity with BMI of 50.0-59.9, adult PTSD (post-traumatic stress disorder) Pulmonary embolism Vitreous hemorrhage of left eye due to diabetes mellitus Surgical History H/O: hysterectomy Hx of appendectomy Hx of tonsillectomy Hx of total knee arthroplasty Status post cataract extraction and insertion of intraocular lens of right eye Family History Mother No known health problems Father Lung cancer Sister Lung cancer Tobacco dependence Social History household members: caregiver Smoking Status: Former smoker alcohol intake: former Discharge Assessment & Plan Assessment and Plan Assessment: 1. Severe sepsis with acute organ dysfunction, present on admission in the setting of acute right sided pyelonephritis and suspected weather associated hyperthermia * Patient's history indicated renal calculi and will need further assessment and treatment by Urology 2. Acute kidney injury, superimposed on CKD stage 5, present on admission * Patient's creatinine is 4.289 and her normal creatinine and is between 2 and 3. Repeat creatinine in over several hours appears to be worsening slowly and will continue to monitor * She will receive IV normal saline at 175 mL per hour for 2 L and then reduce to 100 mL/hour * I requested the ED provider consult with Nephrology and they spoke to , Community Sports Coordinator who recommended hydration, treatment of her pylonephritis and close monitoring as dialysis is not indicated at this time. 3. Acute metabolic encephalopathy, present on admission * likely secondary to active infection and deteriorating renal function 4. Acute pylonephritis, present on admission * She was initiated on IV Ceftriaxone and this will be continued * Per ED provider, lactate improved after fluid hydration and antibiotic administration 5. Probable type 2 DE in the setting of severe sepsis, infection and metabolic encephalopathy, present on admission * troponins were elevated on admission initially 0.064 at 11:29 p.m. followed by 0.069 at 1.37 likely due to demand ischemia associated with her acute kidn ey injury * will trend troponin q.6 hours next 1 do is at 0600, this has continued to increase 6. Diabetes type 2, uncontrolled * We will continue Lantus 62 units b.i.d. with low-dose correctional insulin * hemoglobin A1c is 7.4 indicating suboptimal control 7. Essential hypertension currently hypotensive * Oral hypertensives are currently being held because the patient is NPO 8. History of CVA anticoagulated on apixaban * apixaban is being held because the patient is non-responsive and NPO * Prophylactic anticoagulation with subcu heparin 5000 units twice daily due to her 1 NPO status and to compromised renal function 9. Morbid obesity with a BMI of 50%, present on admission * her weight presents challenges for nursing care, increased risk of pressure wounds, respiratory compromise VTE prophylaxis: Wells risk score: 3 heparin subcu 5000 units b.i.d. Consults: none Patient is admitted to the ICU under inpatient status with expected length of stay greater than 2 midnights due to severity of presenting symptoms, risk of adverse event, and complexity of treatment plan. FEN: IV NS at 175 ml/hour X 2 liters, then reduce to 100 ml/hour, NPO, C/BMP and magnesium in the am. Dispo: Unknown at this time Code Status: Full code per POLST Primary contact: Brian Daugherty, son unknown if he is her POA Plan of Treatment: As above by problem. Discharge Plan Discharge Plan Disposition: [facility] Diet/Activity/Treatments Diet: Nothing by Mouth Discharge Data Primary Care Provider: Danielle Rodriguez VTE Deep Vein Thrombosis/Pulmonary Embolism Present on Admission: No MIPS - Admit I confirm the patient?s Advance Care Plan is present, Code status is documented, Surrogate decision maker is in patient?s record [If Yes, STOP here]: Yes
[2021-05-01 22:16] LABS: BUN Creatinine Ratio 7.7 (6-22); Blood Urea Nitrogen 39 mg/dL (7-17); Calcium 9.2 mg/dL (8.4-10.2); Carbon Dioxide 21 mmol/L (22-32); Chloride 111 mmol/L (98-107); Estimated Glomerular Filt Rate 8.2 mL/min (>60); Glucose 114 mg/dL (80-110); HEMOLYSIS < 15 (0-50); Potassium 3.9 mmol/L (3.4-5.1); Sodium 139 mmol/L (137-145)
== END 2021-05-01 21:25 | disposition short-term general hospital (02) | DRG 871 ==
LOC: ED 05-01 02:20 → AC 05-01 06:10 → ICU 05-01 06:21
PROVIDERS: Internal Medicine; Admitting Provider Nurse Practitioner Family; Emergency Provider Emergency Medicine; PCP Internal Medicine; Referring Provider Emergency Medicine; Visit Provider Nurse Practitioner Family
DX: A40.1 Sepsis due to streptococcus, group B (principal); I21.A1 Myocardial infarction type 2; G93.41 Metabolic encephalopathy; N17.9 Acute kidney failure, unspecified; Z68.43 Body mass index [BMI] 50.0-59.9, adult; N13.6 Pyonephrosis; N18.4 Chronic kidney disease, stage 4 (severe); R65.20 Severe sepsis without septic shock; I95.9 Hypotension, unspecified; E11.65 Type 2 diabetes mellitus with hyperglycemia; E11.319 Type 2 diabetes mellitus with unspecified diabetic retinopathy without macular edema; E11.40 Type 2 diabetes mellitus with diabetic neuropathy, unspecified; E66.01 Morbid (severe) obesity due to excess calories; E11.21 Type 2 diabetes mellitus with diabetic nephropathy; R60.9 Edema, unspecified; E11.22 Type 2 diabetes mellitus with diabetic chronic kidney disease; J45.909 Unspecified asthma, uncomplicated; Z87.891 Personal history of nicotine dependence; Z86.73 Personal history of transient ischemic attack (TIA), and cerebral infarction without residual deficits; Z79.4 Long term (current) use of insulin; Z86.711 Personal history of pulmonary embolism; Z79.01 Long term (current) use of anticoagulants; Z20.822 Contact with and (suspected) exposure to COVID-19
CPT/HCPCS: 36415; 36592; 36600; 51702; 70450; 71045; 74176; 76770; 80048; 80053; 81001; 82550; 82805; 82962; 83036; 83605; 83690; 83880; 84145; 84484; 85025; 87040; 87086; 87150; 87186; 87205; 87635; 87797; 93005; 94760; 94762; 96361; 96365; 99285; C9803; J0696; J1815